=== PATIENT | female | born 1950 | race Hispanic/Latino ===

== ENCOUNTER 2016-06-26 15:24 | Inpatient (IN) | payer MEDICARE, OTHER ==
[2016-06-26 15:51] VITALS: BMI 28.0
[2016-06-26 17:00] LABS: PH,URINE 6.5 (4.7-8.0); URINE BILIRUBIN NEGATIVE (NEGATIVE); URINE BLOOD LARGE (NEGATIVE); URINE GLUCOSE (UA) NEGATIVE (NEGATIVE); URINE KETONE NEGATIVE (NEGATIVE); URINE LEUKOCYTE ESTERASE LARGE Leu/uL (NEGATIVE); URINE PROTEIN 30 mg/dL (<30 mg/dL); URINE UROBILINOGEN 0.2 E.U./dL (<1 E.U./dL)
[2016-06-26 17:04] LABS: ADD MANUAL DIFF? NO
[2016-06-26 17:10] LABS: URINE APPEARANCE SL CLOUDY (CLEAR); URINE COLOR YELLOW (YELLOW)
[2016-06-26 17:13] LABS: BASO # 0.03 K/mm3 (0.0-2.0); BASO % 0.4 % (0.0-3.0); EOS # 0.2 (0.0-0.7); EOS % 2.2 % (1.5-5.0); GRAN # 6.01 (1.4-6.5); GRAN % 81.4 % (50.0-68.0); LYMPH # 0.7 (1.2-3.4); MEAN CELL VOLUME 94.8 fL (80.0-105.0); MEAN CORPUSCULAR HEMOGLOBIN 30.7 pg (25.0-35.0); MEAN CORPUSCULAR HGB CONC 32.4 g/dl (31.0-37.0); MEAN PLATELET VOLUME 9.8 fl (7.0-11.0); MONO # 0.4 (0.1-0.6); PLATELET COUNT 242 10^3/uL (120.0-450.0); RED CELL DISTRIBUTION WIDTH 14.3 % (11.5-14.5); WHITE BLOOD COUNT 7.4 10^3/ul (4.5-11.0)
[2016-06-26] MEDS ORDERED: Morphine 2 mg/ml ISec IVP STA ×2 (17:31→19:36)
[2016-06-26 17:36] LABS: URINE AMORPHOUS SEDIMENT MODERATE; URINE BACTERIA MOD (NEG); URINE RBC 20 - 25 /hpf (0-2); URINE WBC TNTC /hpf (0-6)
[2016-06-26 17:39] LABS: PARTIAL THROMBOPLASTIN TIME 27.1 Seconds (23.7-30.8)
[2016-06-26 17:49] LABS: INR 0.94 (0.93-1.08)
--- NOTE | 2016-06-26 17:50 | ED PDOC ---
Arrival/HPI - General Chief Complaint: Female Genitourinary Time Seen by Provider: 06/26/16 16:07 Historian: Patient - History of Present Illness Narrative History of Present Illness (Text): 06/26/16 17:47 65yo female with PMHx of hypertension, cervical CA and with Nephrostomy present with complaint of suprapubic abdominal pain and hematuria x few weeks. States pain became increasingly worse with hematuria. She reports previous history of UTI. she also reports rectal pain. Denies fever, chills, nausea, vomiting, any other complaint. 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 - Psychiatric Hx Emotional Abuse: No Hx Physical Abuse: No Hx Substance Use: No - Surgical History Hx Cardiac Catheterization: Yes Hx Coronary Stent: Yes Hx Hysterectomy: Yes Other/Comment: nephrostomy tubes,CARDIAC STENTS ,HYSTERECTOMY,RIGHT ANKLE FX, - Anesthesia Hx Anesthesia: No Hx Anesthesia Reactions: No Hx Malignant Hyperthermia: No - Suicidal Assessment Feels Threatened In Home Enviroment: No Family/Social History - Physician Review Nursing Documentation Reviewed: Yes Family/Social History: Unknown Family HX Smoking Status: Former Smoker Hx Alcohol Use: No Hx Substance Use: No Hx Substance Use Treatment: No Allergies/Home Meds Allergies/Adverse Reactions: Allergies No Known Allergies Allergy (Verified 01/23/16 23:00) Home Medications: Home Meds Medication Instructions Recorded Confirmed Oxycodone HCl/Acetaminophen 1 tab PO Q6H PRN 02/12/15 06/26/16 [Percocet 5-325 mg Tablet] Sertraline [Zoloft] 25 mg PO DAILY 04/06/15 06/26/16 Docusate Sodium [Dc' 100 mg PO DAILY PRN 11/08/15 06/26/16 Laxative] Ergocalciferol (Vitamin D2) 50,000 iu PO FRI 11/08/15 06/26/16 [Vitamin D2] Omeprazole 20 mg PO DAILY 11/08/15 06/26/16 Tranexamic Acid [Lysteda] 2 tab PO BID 11/08/15 06/26/16 Review of Systems - Physician Review All systems were reviewed & negative as marked: Yes - Review of Systems Constitutional: Normal Eyes: Normal ENT: Normal Respiratory: Normal Cardiovascular: Normal Gastrointestinal: Abdominal Pain. absent: Constipation, Diarrhea, Nausea, Vomiting, Hematochezia, Hematemesis Genitourinary Female: Dysuria, Frequency, Hematuria Musculoskeletal: Normal Skin: Normal Neurological: Normal Endocrine: Normal Hemo/Lymphatic: Normal Psychiatric: Normal Physical Exam Vital Signs Reviewed: Yes Vital Signs Temp Pulse Resp BP Pulse Ox 06/26/16 19:30 79 16 128/87 98 06/26/16 17:49 82 18 131/77 96 06/26/16 15:50 99.7 F H 87 18 150/88 100 Temperature: Febrile Blood Pressure: Normal Pulse: Regular Respiratory Rate: Normal Appearance: Positive for: Well-Appearing, Non-Toxic, Comfortable Pain Distress: None Mental Status: Positive for: Alert and Oriented X 3 - Systems Exam Head: Present: Atraumatic, Normocephalic Pupils: Present: PERRL Extroacular Muscles: Present: EOMI Conjunctiva: Present: Normal Mouth: Present: Moist Mucous Membranes Neck: Present: Normal Range of Motion Respiratory/Chest: Present: Clear to Auscultation, Good Air Exchange. No: Respiratory Distress, Accessory Muscle Use Cardiovascular: Present: Regular Rate and Rhythm, Normal S1, S2. No: Murmurs Abdomen: Present: Tenderness (Suprapubic tenderness), Normal Bowel Sounds, Other (Nephrostomy tube noted in place. No sign of infection noted. No erythema. No swelling. No tenderness). No: Distention, Peritoneal Signs, Rebound, Guarding, McBurney's Point Tender, Rovsing's Sign Present Back: Present: Normal Inspection Upper Extremity: Present: Normal Inspection. No: Cyanosis, Edema Lower Extremity: Present: Normal Inspection. No: Edema Neurological: Present: GCS=15, CN II-XII Intact, Speech Normal Skin: Present: Warm, Dry, Normal Color. No: Rashes Psychiatric: Present: Alert, Oriented x 3, Normal Insight, Normal Concentration Medical Decision Making ED Course and Treatment: 06/27/16 03:14 PT presented for stated history. She denied fever, but had low grade temp on presentation. Her pain was managed in ED with medication. Lab was noted with increased Cr which was comparable to her previous lab. UTI was noted in the UA. Pt will be admitted for UTI for abx secondary to her age and PMHx. Case was DW Dr. Bolivar. He accepted pt to his service. He requested consult of Drs. Pitts and Pj. Result and plan was DW the pt and she agreed. - Lab Interpretations Lab Results: 06/26/16 16:45 06/26/16 18:20 Lab Results 06/26/16 18:20: Sodium 138, Potassium 5.0, Chloride 104, Carbon Dioxide 24, Anion Gap 15, BUN 39 H, Creatinine 2.0 H, Est GFR ( Amer) 30, Est GFR ( Non-Af Amer) 25, Random Glucose 101, Calcium 8.8, Total Bilirubin 0.4, AST 32, ALT 12, Alkaline Phosphatase 127, Total Protein 7.1, Albumin 3.6, Globulin 3.4, Albumin/Globulin Ratio 1.1 06/26/16 16:45: WBC 7.4, RBC 3.48 L, Hgb 10.7 L, Hct 33.0 L, MCV 94.8, MCH 30.7 , MCHC 32.4, RDW 14.3, Plt Count 242, MPV 9.8, Gran % 81.4 H, Lymph % (Auto) 10.0 L, [place] % (Auto) 6.0, Eos % (Auto) 2.2, Baso % (Auto) 0.4, Gran # 6.01, Lymph # 0.7 L, Grimes # 0.4, Eos # 0.2, Baso # 0.03, PT 10.2, INR 0.94, APTT 27.1 06/26/16 16:44: Urine Color Yellow, Urine Appearance Sl cloudy, Urine pH 6.5, Ur Specific [place] 1.015, Urine Protein 30 H, Urine Glucose (UA) Negative, Urine Ketones Negative, Urine Blood Large H, Urine Nitrate Negative, Urine Bilirubin Negative, Urine Urobilinogen 0.2, Ur Leukocyte Esterase Large H, Urine RBC 20 - 25, Urine WBC Tntc, Ur Epithelial Cells 3 - 4, Amorphous Sediment Moderate, Urine Bacteria Mod - Medication Orders Current Medication Orders: Piperacillin Sod/Tazobactam Sod (Zosyn 2.25 Gm In 0.9% 100 Ml) 100 mls @ 200 mls/hr IVPB Q8 SHELBY PRN Reason: Protocol Stop: 07/04/16 06:01 Morphine Sulfate (Morphine) 2 mg IVP Q4H PRN PRN Reason: Pain, moderate (4-7) Stop: 06/27/16 08:34 Last Admin: 06/27/16 00:49 Dose: 2 MG [facility] Pain Assessment Document 06/27/16 00:49 RR (Rec: 06/27/16 00:49 RR [id number]) Pain Reassessment Is this a pain reassessment? No Sleep Is patient sleeping during reassessment? No Presence of Pain Presence of Pain Yes Pain Scale Used Pain Scale Used Numeric Location Upper or Lower Lower Pain Location Body Site Abdomen Description Description Constant Intensity of Pain at present 6 Pain Behavior Guarding Withdrawal from Touch Alleviating Factors/Management Medication Techniques Alleviating Factors Medication IVP Administration Document 06/27/16 00:49 RR (Rec: 06/27/16 00:49 RR [id number]) Charges for Administration # of IVP Administrations 1 Re-Assess: [facility] Pain Assessment Document 06/27/16 01:49 RR (Rec: 06/27/16 02:04 RR [id number]) Pain Reassessment Is this a pain reassessment? Yes Sleep Is patient sleeping during reassessment? Yes Pain Scale Used Pain Scale Used FLACC Discontinued Medications Hydrocortisone (Anusol-Hc) 15 gm IN ONCE STA Stop: 06/26/16 22:17 Last Admin: 06/26/16 23:44 Dose: 1 UNIT Ceftriaxone Sodium (Rocephin 1 Gram Ivpb) 100 mls @ 200 mls/hr IVPB STAT STA PRN Reason: Protocol Stop: 06/26/16 20:43 Last Admin: 06/26/16 21:46 Dose: 200 MLS/HR eMAR Start Stop Document 06/26/16 21:46 YP (Rec: 06/26/16 21:46 YP [id number]) Intravenous Solution Start Date 06/26/16 Start Time 21:46 End Date 06/26/16 End time 22:16 Total Infusion Time 30 Morphine Sulfate (Morphine) 2 mg IVP STAT STA Stop: 06/26/16 17:32 Last Admin: 06/26/16 17:52 Dose: 2 MG MAR Pain Assessment Document 06/26/16 17:52 SZA (Rec: 06/26/16 17:52 SZA [id number]) Pain Reassessment Is this a pain reassessment? No Sleep Is patient sleeping during reassessment? No Presence of Pain Presence of Pain Yes IVP Administration Document 06/26/16 17:52 SZA (Rec: 06/26/16 17:52 SZA [id number]) Charges for Administration # of IVP Administrations 1 Morphine Sulfate (Morphine) 2 mg IVP STAT STA Stop: 06/26/16 19:37 Last Admin: 06/26/16 20:16 Dose: 2 MG MAR Pain Assessment Document 06/26/16 20:16 YP (Rec: 06/26/16 20:16 YP [id number]) Pain Reassessment Is this a pain reassessment? Yes Sleep Is patient sleeping during reassessment? No Presence of Pain Presence of Pain Yes Pain Scale Used Pain Scale Used Numeric IVP Administration Document 06/26/16 20:16 YP (Rec: 06/26/16 20:16 YP [id number]) Charges for Administration # of IVP Administrations 1 Disposition/Present on Arrival - Present on Arrival Any Indicators Present on Arrival: No History of DVT/PE: No History of Uncontrolled Diabetes: No Urinary Catheter: No History of Decub. Ulcer: No History Surgical Site Infection Following: None - Disposition Have Diagnosis and Disposition been Completed?: Yes Diagnosis: UTI (urinary tract infection), Renal failure, chronic Disposition: HOSPITALIZED Disposition Time: 20:20 Patient Problems: Current Active Problems Problem Status Diagnosed Anemia Acute UTI (urinary tract infection) Acute Coronary artery disease Chronic Renal failure, chronic Chronic Condition: FAIR
[2016-06-26 18:51] LABS: ALB/GLOB RATIO 1.1 (1.1-1.8); BILIRUBIN,TOTAL 0.4 mg/dL (0.2-1.3); CALCIUM 8.8 mg/dL (8.4-10.5); TOTAL PROTEIN 7.1 g/dL (5.8-8.3)
[2016-06-26] MEDS ORDERED: cefTRIAXone 1 gm 100 ML IVPB STA (20:14)
[2016-06-26] MEDS ORDERED: Hydrocortisone 2.5% Rectal Cream(30 gm) PR STA (22:16)
[2016-06-26 23:38] VITALS: RESP 20
--- NOTE | 2016-06-27 00:18 | CP.PCM.PN ---
Subjective - Date & Time of Evaluation Date of Evaluation: 06/27/16 Time of Evaluation: 00:15 - Subjective Subjective: Patient was seen at bedside because she complained of bladder pain,pain was in the suprapubic area, sharp pain, no radiation. Morphine 2 mg was given 8:16 PM in the ER .also at about 6PM. T 99.6*F This 65 year old white woman was admitted with suprapubic abdominal pain and hematuria of few weeks duration. Has PMH of HTN, CAD,ASHD, CHF, TIA/CVA, Cervical cancer, S/P chemo therapy, S/ P radiation therapy, CKD , bilateral nephrostomy tube, anxiety , depression, Objective - Vital Signs/Intake and Output Vital Signs (last 24 hours): Temp Pulse Resp BP Pulse Ox 99.9 F H 87 20 150/83 98 06/26/16 22:40 06/26/16 22:40 06/26/16 22:40 06/26/16 22:40 06/26/16 19:30 - Medications Medications: Active Medications Piperacillin Sod/Tazobactam Sod (Zosyn 2.25 Gm In 0.9% 100 Ml) 100 mls @ 200 mls/hr IVPB Q8 SHELBY PRN Reason: Protocol Stop: 07/04/16 06:01 Morphine Sulfate (Morphine) 2 mg IVP Q4H PRN PRN Reason: Pain, moderate (4-7) Stop: 06/27/16 08:34 Last Admin: 06/27/16 00:49 Dose: 2 mg - Labs Labs: PT 10.2 Seconds (9.9-11.8) 06/26/16 16:45 INR 0.94 (0.93-1.08) 06/26/16 16:45 APTT 27.1 Seconds (23.7-30.8) 06/26/16 16:45 - Constitutional Appears: Well, No Acute Distress - Head Exam Head Exam: ATRAUMATIC, NORMAL INSPECTION, NORMOCEPHALIC - Eye Exam Eye Exam: Normal appearance - ENT Exam ENT Exam: Normal External Ear Exam - Neck Exam Neck Exam: Normal Inspection - Respiratory Exam Respiratory Exam: NORMAL BREATHING PATTERN - Cardiovascular Exam Cardiovascular Exam: absent: JVD - GI/Abdominal Exam GI & Abdominal Exam: absent: Distended, Tenderness - Rectal Exam Rectal Exam: Deferred - Exam Additional comments: Bilateral flanks have nephrostomy tubes, bags have clear urine. - Extremities Exam Extremities Exam: Normal Inspection - Back Exam Back Exam: NORMAL INSPECTION - Neurological Exam Neurological Exam: Alert, Oriented x3 - Psychiatric Exam Psychiatric exam: Normal Affect, Normal Mood - Skin Skin Exam: Normal Color Assessment and Plan - Assessment and Plan (Free Text) Assessment: A/P: Suprapubic pain. Cervical cancer. HTN. S/P bilateral nephrostomy tubes. Morphine sulfate 2 mg IV Q4H PRN x 3 doses.
[2016-06-27] MEDS: Morphine 2 mg/ml ISec IVP PRN ×4 (00:49→21:10)
[2016-06-27] MEDS: Piperacillin/Tazobact 2.25gm 100 ML IVPB SCH ×3 (06:37→21:08)
[2016-06-27] MEDS ORDERED: Oxycodone/Acetaminophen 10/325 mg Tab PO PRN (09:04)
[2016-06-27] MEDS: TRANEXAMIC ACID 650 MG PO SCH ×2 (09:58→17:30)
--- NOTE | 2016-06-27 13:20 | CON ---
DATE: 06/27/2016 SERVICE: Cardiology. REASON FOR CONSULTATION: Cardiac evaluation, history of coronary artery disease, admitted with a bleed, history of cervical cancer, status post bilateral nephrostomy. BRIEF CLINICAL HISTORY: This is a 65-year-old female with past medical history significant for coron yunier artery disease, status post bare metal stent placed in the past, history of cervical cancer, erod ed to the bladder, status post bilateral nephrostomy, admitted with a bleed. Denies any chest hermelinda n, shortness of breath, any palpitation. Recently a stress test was done which was abnormal and sche duled for cardiac catheterization. The patient herself and the family and [id number], who is a r etired anesthesiologist, wanted to hold the procedure and the sister also wanted to hold the procedur e. The patient denies any chest pain, shortness of breath, any palpitation, though complained of b leed with a blood clot. PAST MEDICAL HISTORY: Significant for cervical cancer with fistulous communication into the bladder, status post bilateral nephrostomy, history of stent in the coronary with a bare metal stent in the p ast, hypertension, hyperlipidemia, history of renal insufficiency, history of anemia, history of, as mentioned, bilateral nephrostomy. 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 The patient gonzalez d a stress test recently that was abnormal, so patient is scheduled for cardiac catheterization, but as mentioned, family and patient refused. Last echo, ejection fraction 55%-60% in the [facility] al, trace aortic regurgitation, mild mitral regurgitation, moderate to severe mitral regurgitation, m ild tricuspid regurgitation, RV systolic pressure of 33. The patient was scheduled for cardiac chandu terization 04/12/2016, but the family refused. The patient had a stress test on 05/15/2016 that was abno rmal. Most recent stress test 05/15/2016 that was equivocal myocardial study, partially reversib le anterior defect suspicious for ischemia dated 05/15/2016. Following this, patient was scheduled for a cardiac catheterization. The patient canceled and refused. Denies any chest pain. CURRENT MEDICATIONS: The patient is taking at home, vitamin B12, folic acid. PHYSICAL EXAMINATION: VITAL SIGNS: Temperature afebrile, heart rate 86, blood pressure 130/80. HEENT: PERRLA. Extraocular muscles intact. NECK: Supple. No carotid bruits. No thyromegaly. CHEST: Clear to auscultation. HEART: S1, S2 regular. ABDOMEN: Soft. EXTREMITIES: Clubbing, cyanosis negative. EKG showed normal sinus. Blood workup, computer system is locked, cannot review the blood report now . IMPRESSION: Renal insufficiency, anemia, genitourinary bleed, coronary artery disease, status post a bare metal stent in circumflex, a stress test on 05/15/2016 abnormal, cardiac catheterization is sugge sted. The patient refused. Mitral regurgitation, tricuspid regurgitation. LABORATORY DATA: WBC 7.4, hemoglobin 10.7, hematocrit 33.0, platelet count 242. Chemistry shows sod ium 138, potassium 5, chloride 104, carbon dioxide 24, anion gap of 15, BUN 39, creatinine 2 with a c reatinine clearance of 30 mL. RECOMMENDATION: We will continue to monitor closely anemia. We will hold the cardiac catheterizatio n. The patient does not want. The patient is asymptomatic and the patient's family also wanted to h old off the cardiac catheterization. We will follow with you. Thank you, Dr. Ford, for providing us the opportunity in taking care of this patient. We will rev iew the most recent echo done in Dr. Peña's office. Will follow with you. Debby Oliva MD cc: [id number] TT: 06/27/2016 13:19:22 Confirmation # [id number] Dictation # [id number] yaniv
--- NOTE | 2016-06-27 14:29 | CP.PCM.CON ---
History of Present Illness - History of Present Illness History of Present Illness: 65 year old female with PMH of enterococcus and pseudomonas UTI in the past, cervical cancer S/P chemotherapy and radiation therapy with history or radiation cystitis, history of transient ischemic attack, GERD, coronary artery disease, sleep apnea, history of psoriasis, history of diverticulitis, history of depression, chronic renal failure, S/P nephrostomy tube placement came in to [facility] because of suprapubic pain and intermittent hematuria for the past 2 weeks, with worsening in the past 2-3 days. The patient denies fever or chills, no nausea or vomiting, no diarrhea, no headache or dizziness, no chest pain, no sore throat, no rhinorrhea, no abdominal pain, no flank pain. Infectious Diseases consult is requested to further evaluate and manage. Social history: no smoking, no alcohol abuse, no illicit drug use Review of Systems - Review of Systems All systems: reviewed and no additional remarkable complaints except (as per HPI ) Past Patient History - Infectious Disease Hx of Infectious Diseases: None - Tetanus Immunizations Tetanus Immunization: Unknown - Past Medical History & Family History Past Medical History?: Yes Past Family History: Reviewed and not pertinent - Past Social History Smoking Status: Never Smoked Alcohol: None Drugs: Denies - CARDIAC Hx Pacemaker: No - PULMONARY Hx Respiratory Disorders: Yes Hx Asthma: Yes Hx Sleep Apnea: Yes - NEUROLOGICAL Hx Transient Ischemic Attacks (TIA): Yes (20yrs ago) - HEENT Other/Comment: left tympanic tubes placed - RENAL Hx Renal Failure: Yes Other/Comment: Nephrostomy tubes bilateral, 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 - PSYCHIATRIC Hx Emotional Abuse: No Hx Physical Abuse: No - SURGICAL HISTORY Hx Cardiac Catheterization: Yes Hx Coronary Stent: Yes Hx Hysterectomy: Yes Other/Comment: nephrostomy tubes,CARDIAC STENTS ,HYSTERECTOMY,RIGHT ANKLE FX, - ANESTHESIA Hx Anesthesia: No Hx Anesthesia Reactions: No Hx Malignant Hyperthermia: No Meds Allergies/Adverse Reactions: Allergies Allergy/AdvReac Type Severity Reaction Status Date / Time No Known Allergies Allergy Verified 01/23/16 23:00 - Medications Medications: Current Medications Piperacillin Sod/Tazobactam Sod (Zosyn 3.375 In Ns 100ml) 100 mls @ 200 mls/hr IVPB Q8 SHELBY PRN Reason: Protocol Stop: 07/04/16 06:01 Physical Exam - Constitutional Appears: Non-toxic, No Acute Distress - Head Exam Head Exam: NORMAL INSPECTION - ENT Exam ENT Exam: Mucous Membranes Moist - Neck Exam Neck exam: Negative for: Lymphadenopathy, Meningismus - Respiratory Exam Respiratory Exam: Decreased Breath Sounds - Cardiovascular Exam Cardiovascular Exam: +S1, +S2 - GI/Abdominal Exam GI & Abdominal Exam: Soft. absent: Tenderness Results - Vital Signs Recent Vital Signs: Last Vital Signs Temp 99.9 F H 06/26/16 22:40 Pulse 87 06/26/16 22:40 Resp 20 06/26/16 22:40 BP 150/83 06/26/16 22:40 Pulse Ox 98 06/26/16 19:30 - Labs Result Diagrams: 06/26/16 16:45 06/26/16 18:20 Assessment & Plan - Assessment and Plan (Free Text) Plan: Assessment Urinary tract infection with gram negative bacilli; based on previous cultures, the patient has had pseudomonas, Klebsiella and Enterococcus faecalis enterococcus and pseudomonas UTI in the past cervical cancer S/P chemotherapy and radiation therapy with history or radiation cystitis history of transient ischemic attack GERD coronary artery disease sleep apnea history of psoriasis history of diverticulitis history of depression chronic renal failure S/P nephrostomy tube placement Plan started patient on Zosyn pending identification and sensitivities of the gram negative bacilli in the urine; follow up blood cx; will order renal ultrasound to rule out hydronephrosis will follow clinically
--- NOTE | 2016-06-27 15:40 | CON ---
DATE: 06/27/2016 ADDENDUM REASON FOR DICTATION: Addendum to the initial consult dictated this morning. REASON FOR ADDENDUM: The patient had echocardiography 05/09/2016 that showed mild LVH, preserved LV f unction, ejection fraction 70%, diastolic dysfunction. Moderate to severe mitral regurgitation, mild tricuspid regurgitation, trace pulmonary insufficiency, RV systolic pressure of 43. The patient has also bilateral carotid duplex done that shows bilateral moderate plaque noted in both ICA and CCA with stenosis and right ICA 40-59% left ICA 20-39% stenosis. As also mentioned, the pat ient had a stress test on 05/15/2016 that is suspicious for ischemia. The patient refused cardiac cath eterization and opted for medical treatment for now. Today, also patient wanted to be treated medica lly. Denies any chest pain. RECOMMENDATION: We will continue low-dose beta theodore. Not on aspirin because of the bleed. Co ntinue the rest of the medication. We will follow with you. Thank you, Dr. Ford, for providing us the opportunity in taking care of the patient. We will foll ow with you. Debby Oliva MD cc: [id number] TT: 06/27/2016 15:25:35 Confirmation # [id number] Dictation # [id number] tn
--- NOTE | 2016-06-27 18:54 | US ---
PROCEDURE: Ultrasound of the Kidneys HISTORY: rule out hydronephrosis COMPARISON: None available. TECHNIQUE: Sonogram of the kidneys. FINDINGS: RIGHT KIDNEY: Measures: 7.1 cm. Small in size. There is diffuse cortical increased echogenicity and loss of corticomedullary differentiation. No stone, solid mass lesion or hydronephrosis visualized. Nephrostomy tube is visualized. LEFT KIDNEY: Measures: 8.1 cm. Small in size. There is diffuse increased cortical echogenicity and loss of corticomedullary differentiation. No stone, solid mass lesion or hydronephrosis visualized. Nephrostomy tube is visualized. OTHER FINDINGS: None. IMPRESSION: Findings are consistent with severe chronic medical renal disease. No hydronephrosis.
--- NOTE | 2016-06-28 01:01 | HP ---
The patient was admitted through the Emergency Room last night. The patient is currently in room 378 . REASON FOR ADMISSION: This is a 65-year-old female with a past medical history of stage III carcino ma of the cervix, status post chemoradiation with resultant delayed side effects from radiation-induc ed cystitis for which she underwent eventually bilateral nephrostomy, radiation proctitis for which s he had to have the laser therapy and ablation of ectatic blood vessels in the rectum. HISTORY OF PRESENT ILLNESS: History of coronary artery disease, status post bare metal stent placeme nt in the past, history of significant radiation cystitis of the bladder requiring multiple procedur es including embolization of the arteries supplying the bladder in the recent past. The patient was assessed for surgical pelvic exenteration but was not feasible because of unstable cardiac disease. The patient had a recent stress test done, which was abnormal and the patient was scheduled for cardi ac catheterization. The patient in the meantime presents to the Emergency Room with significant comp laints of abdominal pain, bilateral nephrostomy discharge of blood-tinged fluid and waves of nausea. The patient wanted to hold off on the cardiac catheterization for now since she was relatively other britt feeling asymptomatic. The patient denied any history of chest pain, shortness of breath, palpit ations, though currently her biggest complaint for which brought her into the hospital, is bleeding t hrough the nephrostomy tubes, blood clotting and more importantly lower abdominal pain. PAST MEDICAL HISTORY: As mentioned is significant for stage IIIB/IV cervical carcinoma with radiatio n proctitis and radiation cystitis for which she had bilateral nephrostomy. The patient had bare met al stents in the coronary arteries with multiple stents placed, history of hypertension, history of h yperlipidemia, history of old cerebrovascular accident, history of renal insufficiency. The patient is on tranexamic acid for anemia and she is being monitored with periodic exchanges of th e nephrostomy catheter done by Dr. Bruce Black. CURRENT MEDICATIONS: At home including taking PPI such as omeprazole. She is on Zoloft 25 mg p.o. d aily. She is on folic acid. She has tranexamic acid 600 mg b.i.d. to reduce the risk of bleeding. She is on Percocet 10/325 q. 6 hours p.r.n. for pain, she is on MiraLax for constipation. PHYSICAL EXAMINATION: GENERAL: The patient is awake, alert, and oriented. VITAL SIGNS: Stable. T-max is 98.4, heart rate is 86, blood pressure is 130/80. HEENT: Head is normocephalic, atraumatic. Conjunctivae pale. Pupils are equally reactive to light and accommodation. Examination of the oropharynx reveals no oropharyngeal lesions. NECK: Supple. There is no adenopathy. LUNGS: Reveals it to be clear to percussion and auscultation. HEART: Reveals PMI to be in the 5th intercostal space inside the midclavicular line. S1 and S2 are normal. No gallop or murmur is heard. ABDOMEN: Soft. The patient has mild suprapubic tenderness. No masses per se are felt. EXTREMITIES: Reveals no cyanosis, clubbing or edema. The patient has bilateral nephrostomies with d rainage is blood tinged. LABORATORY DATA: EKG shows normal sinus rhythm at this time. Lab data reveals a white count of 7.4, hemoglobin 10.7, hematocrit 33, platelet count of 242,000. Sodium is 138, K is 5, chloride 104, CO2 of 24, BUN of 39, creatinine 2 with a creatinine clearance of 30. ASSESSMENT NOTES AND PLAN: The patient has renal insufficiency, probably prerenal azotemia as well, anemia, genitourinary bleed, coronary artery disease status post bare metal stent placement, abnorma l stress test, now in the setting of significant bleeding will have rule out evolving genitourinary i nfection as well. PLAN: The patient has already been started appropriately on IV antibiotics and IV fluids, monitor th e patient very carefully. Consultations with both ID and vascular have been obtained, we will get a evaluation as well. The patient to be seen by Dr. Aburto who has seen her in the past. The hill ent's family and the patient are reluctant for any further cardiac workup. Will speak to the family myself and recommend to them appropriately. ID has already seen the patient and the patient is alrea dy on appropriate antibiotics from the Emergency Room. Her medications were reviewed and she is currently on the following medicines: She is on tranexamic acid 600 mg twice a day, Lopressor 25 b.i.d., 2 mg IV q. 4 hours p.r.n. of morphine sulfate for pain, oxycodone 10/325 one q. 6 h. for mild pain. She is on Zosyn q. 8 hours. Repeat blood work has been ordered. Will make sure the BUN and creatinine is getting better, otherwise, we will get renal on b oard as well. ADMITTING DIAGNOSES: Genitourinary bleeding from bilateral nephrostomies, mild renal azotemia in the background history of having metastatic locally advanced cervical cancer status post chemoradiation, status post treatment for radiation cystitis, status post treatment for radiation proctitis on trane xamic acid to reduce the risk of bleeding with having the nephrostomy catheter exchange every 2-3 mon [address] done by Dr. Bruce Black. Gudelia Ford MD cc: [id number] TT: 06/28/2016 01:00:25 jn
[2016-06-28] MEDS: Morphine 2 mg/ml ISec IVP PRN ×3 (05:26→14:48)
[2016-06-28] MEDS: Piperacillin/Tazobact 2.25gm 100 ML IVPB SCH ×2 (05:27→14:50)
[2016-06-28 07:41] LABS: ADD MANUAL DIFF? NO
[2016-06-28 07:51] LABS: BASO # 0.03 K/mm3 (0.0-2.0); BASO % 0.5 % (0.0-3.0); EOS # 0.3 (0.0-0.7); EOS % 5.1 % (1.5-5.0); GRAN # 4.05 (1.4-6.5); GRAN % 71.4 % (50.0-68.0); LYMPH # 0.8 (1.2-3.4); LYMPH % 14.4 % (22.0-35.0); MEAN CELL VOLUME 95.5 fL (80.0-105.0); MEAN CORPUSCULAR HEMOGLOBIN 30.4 pg (25.0-35.0); MEAN CORPUSCULAR HGB CONC 31.9 g/dl (31.0-37.0); MEAN PLATELET VOLUME 9.3 fl (7.0-11.0); MONO # 0.5 (0.1-0.6); MONO % 8.6 % (1.0-6.0); PLATELET COUNT 202 10^3/uL (120.0-450.0); RED CELL DISTRIBUTION WIDTH 14.1 % (11.5-14.5); WHITE BLOOD COUNT 5.7 10^3/ul (4.5-11.0)
[2016-06-28 08:09] LABS: BILIRUBIN,TOTAL 0.6 mg/dL (0.2-1.3); CALCIUM 8.8 mg/dL (8.4-10.5); MAGNESIUM 2.2 mg/dL (1.7-2.2); PHOSPHOROUS 3.9 mg/dL (2.5-4.5); POTASSIUM 4.4 mmol/L (3.6-5.0); TOTAL PROTEIN 6.9 g/dL (5.8-8.3)
[2016-06-28 08:39] VITALS: BP 127/75; PULSE 68; TEMP 98.6; O2SAT 98
[2016-06-28] MEDS: TRANEXAMIC ACID 650 MG PO SCH (10:13)
--- NOTE | 2016-06-28 10:46 | CP.PCM.PN ---
Subjective - Date & Time of Evaluation Date of Evaluation: 06/28/16 Time of Evaluation: 07:30 - Subjective Subjective: Comfortable in bed, no abdominal pain, no fevers, no nausea. Objective - Vital Signs/Intake and Output Vital Signs (last 24 hours): Temp Pulse Resp BP Pulse Ox 98.6 F 68 20 127/75 98 06/28/16 08:38 06/28/16 10:12 06/28/16 08:38 06/28/16 10:12 06/28/16 08:38 Intake and Output: 06/28/16 06/28/16 06:59 18:59 Intake Total 600 400 Balance 600 400 - Medications Medications: Current Medications Home Med (Home Med) 2 unit PO BID [facility] Last Admin: 06/28/16 10:13 Dose: 2 unit Piperacillin Sod/Tazobactam Sod (Zosyn 2.25 Gm In 0.9% 100 Ml) 100 mls @ 200 mls/hr IVPB Q8 [place] PRN Reason: Protocol Stop: 07/04/16 06:01 Last Admin: 06/28/16 05:27 Dose: 200 mls/hr Metoprolol Tartrate (Lopressor) 25 mg PO BID [facility] Last Admin: 06/28/16 10:12 Dose: 25 mg Morphine Sulfate (Morphine) 2 mg IVP Q4H PRN PRN Reason: Pain, severe (8-10) Last Admin: 06/28/16 05:26 Dose: 2 mg Oxycodone/Acetaminophen (Percocet 10/325 Mg Tab) 1 tab PO Q6H PRN PRN Reason: Pain, moderate (4-7) - Labs Labs: 06/28/16 07:15 06/28/16 07:00 PT 10.2 Seconds (9.9-11.8) 06/26/16 16:45 INR 0.94 (0.93-1.08) 06/26/16 16:45 APTT 27.1 Seconds (23.7-30.8) 06/26/16 16:45 - Constitutional Appears: Non-toxic, No Acute Distress - Head Exam Head Exam: NORMAL INSPECTION - Neck Exam Neck Exam: absent: Lymphadenopathy, Meningismus - Respiratory Exam Respiratory Exam: Decreased Breath Sounds - Cardiovascular Exam Cardiovascular Exam: +S1, +S2 - GI/Abdominal Exam GI & Abdominal Exam: Soft. absent: Tenderness Assessment and Plan - Assessment and Plan (Free Text) Plan: Assessment Urinary tract infection with Klebsiella oxytoca history of pseudomonas, Klebsiella and Enterococcus faecalis UTI enterococcus and pseudomonas UTI in the past cervical cancer S/P chemotherapy and radiation therapy with history or radiation cystitis history of transient ischemic attack GERD coronary artery disease sleep apnea history of psoriasis history of diverticulitis history of depression chronic renal failure S/P nephrostomy tube placement Plan on Zosyn (day 2); renal ultrasound did not show hydronephrosis; when ready for discharge, the patient can be switched to PO Bactrim 1 tab DS x 10 days (since she has complication of radiation-induced cystitis previously and has a right sided nephrostomy
--- NOTE | 2016-06-28 14:23 | PN ---
DATE: 06/28/2016 The patient in room 378, bed 1. REASON FOR CONSULTATION AND FOLLOWUP: History of coronary artery disease, admitted with bleeding, history of cervical cancer, status post bilateral nephrostomy. HISTORY OF PRESENT ILLNESS: The patient is a 65-year-old female with past medical history significan t for coronary artery disease, status post bare metal stent placement in the past, history of cervica l cancer to the bladder, status post bilateral nephrostomy. Now admitted with bleed. Denie s chest pain, shortness of breath, or palpitation. The patient had a stress test 05/15/2016, which sh owed ischemia. The patient refused cardiac catheterization. Carotid ultrasound showed right-sided 4 0%-59% blockage, left side 20%-39% blockage. Echo on 05/09/2016 showed mild LVH with ejection fractio n of 70%, diastolic dysfunction, moderate to severe mitral regurgitation, mild tricuspid regurgitatio n, RVSP 43 mmHg, suggestive of mild pulmonary hypertension. The patient, from cardiac point of view, asymptomatic at this moment. PHYSICAL EXAMINATION: VITAL SIGNS: Blood pressure 127/75, respirations 20, pulse 68, temperature 98.6. HEAD: Normocephalic. EYES: Pupils normal. Conjunctivae slightly pale. NECK: JVP low. Carotid equal. THORAX: AP diameter normal. LUNGS: Clear. CARDIOVASCULAR: S1, S2. ABDOMEN: Soft. Bowel sounds normal. EXTREMITIES: No clubbing, no cyanosis. LABORATORY DATA: WBC 5.7, hemoglobin 10.2, hematocrit 32.0, platelets 202. Sodium 141, potassium 4. 4, BUN 32, creatinine 1.9. Calcium, phosphorus, magnesium normal. AST 56, ALT 25. TSH 0.90. DIAGNOSES: Renal insufficiency, anemia, genitourinary bleeding, coronary artery disease, status post bare metal stent in circumflex, abnormal stress test 05/15/2016. The patient refused cardiac cathete rization. Moderate to severe mitral regurgitation, mild tricuspid regurgitation, left ventricular di astolic dysfunction, normal left ventricular ejection fraction of 70% on echo, history of cervical ca ncer, bilateral nephrostomy. PLAN: Continue metoprolol 25 b.i.d. The patient on piperacillin/tazobactam 2.25 gram IV q. I hours. From cardiac point of view, patient is asymptomatic at present. We will continue present therapy. We will follow with you. Debby Peña MD cc: [phone] TT: 06/28/2016 14:22:52 Confirmation # [id number] Dictation # [id number]
== END 2016-06-28 16:08 | disposition home or self-care (01) | DRG 690 ==
LOC: ED 15:24 → ERH 20:19 → 3RSO 22:25
PROVIDERS: ADMIT Family Medicine; ATTEND Family Medicine
DX: N39.0 Urinary tract infection, site not specified (principal); I13.0 Hypertensive heart and chronic kidney disease with heart failure and stage 1 through stage 4 chronic kidney disease, or unspecified chronic kidney disease; I50.30 Unspecified diastolic (congestive) heart failure; N02.9 Recurrent and persistent hematuria with unspecified morphologic changes; N18.9 Chronic kidney disease, unspecified; C53.9 Malignant neoplasm of cervix uteri, unspecified; I27.2 Other secondary pulmonary hypertension; B96.1 Klebsiella pneumoniae [K. pneumoniae] as the cause of diseases classified elsewhere; F32.9 Major depressive disorder, single episode, unspecified; I08.1 Rheumatic disorders of both mitral and tricuspid valves; I25.10 Atherosclerotic heart disease of native coronary artery without angina pectoris; K21.9 Gastro-esophageal reflux disease without esophagitis; D64.9 Anemia, unspecified; E78.5 Hyperlipidemia, unspecified; G47.30 Sleep apnea, unspecified; L40.9 Psoriasis, unspecified; Z93.6 Other artificial openings of urinary tract status; Z92.21 Personal history of antineoplastic chemotherapy; Z92.3 Personal history of irradiation; Z86.73 Personal history of transient ischemic attack (TIA), and cerebral infarction without residual deficits; Z95.5 Presence of coronary angioplasty implant and graft

== ENCOUNTER 2016-08-15 07:27 | Day surgery (SDC) | payer MEDICARE ==
[2016-07-13 07:24] VITALS: BMI 27.6
--- NOTE | 2016-08-15 08:12 | CP.SDSHP ---
Same Day Surgery H & P - History Proposed Procedure: periodic change of nephrostomy tube. Pre-Op Diagnosis: ureteral obstruction secondry to radiation. - Previous Medical/Surgical History Cardiac: ASHD/CAD, Hx of CHF Endocrine/Metabolic: Renal Disease Neuro: TIA/CVA Pain: 0. No Pain - Allergies Allergies: Allergies No Known Allergies Allergy (Verified 01/23/16 23:00) - Physical Exam General Appearance: WNL. Mental Status: Alert & Oriented x3 Neuro: WNL Heart: WNL Lungs: WNL GI: WNL - {Optional Preform as Required} Other Pertinent Findings: hx of gerd, sleep apnea, cervical cancer. - Impression Impression: uretral obstrion/ with nephostomy tube in place . - Date & Time Date: 08/15/16 Time: 08:10 Short Stay Discharge - Short Stay Discharge Admitting Diagnosis/Reason for Visit: C53.9 CERVICAL CANCER Disposition: HOME/ ROUTINE Referrals: Gudelia Ford MD [Primary Care Provider] -
[2016-08-15] MEDS ORDERED: Lidocaine 2% Inj (20ml) ONE (08:34)
[2016-08-15] MEDS ORDERED: Iodixanol 320 mg/ml 150 ml Bottle IV ONE (08:34)
[2016-08-15 08:37] LABS: ADD MANUAL DIFF? NO
[2016-08-15 08:39] LABS: BASO # 0.02 [, K/mm3] (0.0-2.0); BASO % 0.5 % (0.0-3.0); EOS # 0.2 (0.0-0.7); EOS % 3.8 % (1.5-5.0); GRAN # 2.71 (1.4-6.5); GRAN % 69.1 % (50.0-68.0); LYMPH # 0.7 (1.2-3.4); LYMPH % 17.9 % (22.0-35.0); MEAN CORPUSCULAR HEMOGLOBIN 30.8 pg (25.0-35.0); MEAN CORPUSCULAR HGB CONC 32.1 g/dl (31.0-37.0); MEAN PLATELET VOLUME 9.2 fl (7.0-11.0); MONO # 0.3 (0.1-0.6); MONO % 8.7 % (1.0-6.0); PLATELET COUNT 183 [, 10^3/uL] (120.0-450.0); RED CELL DISTRIBUTION WIDTH 14.7 % (11.5-14.5); WHITE BLOOD COUNT 3.9 [, 10^3/ul] (4.5-11.0)
[2016-08-15 08:48] LABS: INR 1.05 (0.93-1.08); PARTIAL THROMBOPLASTIN TIME 28.3 Seconds (23.7-30.8)
[2016-08-15 09:01] LABS: CALCIUM 6.3 mg/dL (8.4-10.5)
[2016-08-15 09:04] LABS: POTASSIUM 2.9 mmol/L (3.6-5.0)
[2016-08-15] MEDS ORDERED: Potassium Chloride 20 mEq ER Tab PO ONE (09:26)
[2016-08-15] MEDS ORDERED: Midazolam 2 MG/2 ML VIAL ONE (09:35)
[2016-08-15] MEDS ORDERED: Oxycodone/Acetaminophen 5/325 mg Tab PO PRN (10:10)
[2016-08-15] MEDS ORDERED: Sodium Chloride 0.45% 1,000 ML IV SCH (10:15)
[2016-08-15] MEDS ORDERED: Oxycodone/Acetaminophen 5/325 mg Tab ONE (10:34)
[2016-08-15 11:06] VITALS: RESP 18; TEMP 97.8; O2SAT 99
[2016-08-15 12:29] VITALS: BP 132/85; PULSE 85
--- NOTE | 2016-08-15 19:29 | VASCULAR ---
PROCEDURE: 1. Bilateral percutaneous nephrostomy tube change HISTORY: Cervical CA. Previous radiation. Hemorrhagic cystitis. Chronic bilateral nephrostomy tubes. Nephrostomy tubes need to be changed. PHYSICIAN(S): Bruce Black MD. TECHNIQUE: The relative risks and indications of the procedure were explained the patient consent obtained. The patient is placed prone on the arteriography table and nephrostomy tubes prepped and draped usual sterile fashion. Conscious sedation and monitoring were provided throughout the procedure by a nurse. The right nephrostomy tube was addressed 1st. Contrast was injected and a right nephrostogram performed. This revealed obstruction of the distal right ureter. 0.035 guidewire was coiled within the or right pelvis. The old tube was removed. A new 12 [place] right nephrostomy tube was coiled in the renal pelvis. The catheter was flushed and secured. Next the left nephrostomy tube was addressed. Once again contrast was injected via the left nephrostomy tube and a nephrostogram performed. This revealed a patent and normal appearing left ureter. Contrast flows into a contracted bladder. 0.035 guidewire was coiled in the left renal pelvis. The old tube was removed. A new 12 [place] left nephrostomy tube was placed. The catheter was flushed and secured. The patient tolerated the procedure well. FINDINGS: The nephrostomy tubes are well positioned bilaterally. There is a distal right ureteral obstruction and no contrast enters the bladder on the right. The left ureter is patent. The bladder is contracted. IMPRESSION: 1. Bilateral percutaneous nephrostomy tube change 2. Distal right ureteral obstruction. 3. Patent left ureter
== END 2016-08-15 12:16 | disposition home or self-care (01) ==
LOC: SDSVAS 07:27
PROVIDERS: ATTEND Radiology Vascular & Interventional Radiology
DX: N13.5 Crossing vessel and stricture of ureter without hydronephrosis (principal); Y84.2 Radiological procedure and radiotherapy as the cause of abnormal reaction of the patient, or of later complication, without mention of misadventure at the time of the procedure; C53.9 Malignant neoplasm of cervix uteri, unspecified; K21.9 Gastro-esophageal reflux disease without esophagitis; N30.90 Cystitis, unspecified without hematuria
CPT/HCPCS: 36415; 50435; 80048; 85025; 85610; 85730; 99152; A4358; C1729; C1769; J1644; J2405; J3010; J3480; J7030 ×2

== ENCOUNTER 2016-12-19 06:40 | Day surgery (SDC) | payer MEDICARE ==
[2016-07-13 07:24] VITALS: BMI 27.6
[2016-12-19] MEDS ORDERED: Iodixanol 320 MG/ML 100 ML BOTTLE IV ONE (07:10)
[2016-12-19] MEDS ORDERED: Lidocaine 2% Inj (20ml) ONE (07:10)
[2016-12-19 07:51] LABS: BASO # 0.04 K/mm3 (0.0-2.0); BASO % 0.8 % (0.0-3.0); EOS # 0.2 (0.0-0.7); EOS % 3.2 % (1.5-5.0); GRAN # 3.71 (1.4-6.5); GRAN % 70.1 % (50.0-68.0); HEMATOCRIT 36.2 % (36.0-48.0); LYMPH # 0.9 (1.2-3.4); LYMPH % 17.4 % (22.0-35.0); MEAN CELL VOLUME 94.8 fl (80.0-105.0); MEAN CORPUSCULAR HEMOGLOBIN 30.1 pg (25.0-35.0); MEAN CORPUSCULAR HGB CONC 31.8 g/dl (31.0-37.0); MEAN PLATELET VOLUME 9.5 fl (7.0-11.0); MONO # 0.5 (0.1-0.6); MONO % 8.5 % (1.0-6.0); RED CELL DISTRIBUTION WIDTH 14.1 % (11.5-14.5); WHITE BLOOD COUNT 5.3 10^3/ul (4.5-11.0)
[2016-12-19 08:00] LABS: CALCIUM 9.2 mg/dL (8.4-10.5); POTASSIUM 4.2 mmol/L (3.6-5.0)
[2016-12-19 08:14] LABS: INR 0.98 (0.93-1.08); PARTIAL THROMBOPLASTIN TIME 28.7 Seconds (23.7-30.8)
[2016-12-19] MEDS ORDERED: Midazolam 2 MG/2 ML VIAL ONE ×2 (08:24→09:40)
[2016-12-19] MEDS ORDERED: Oxycodone/Acetaminophen 5/325 mg Tab PO PRN (10:10)
[2016-12-19] MEDS ORDERED: Sodium Chloride 0.45% 1,000 ML IV SCH (10:15)
[2016-12-19 11:35] VITALS: BP 142/93; PULSE 76; RESP 18; TEMP 97.7; O2SAT 96
--- NOTE | 2016-12-19 17:49 | VASCULAR ---
PROCEDURE: 1. Bilateral nephrostomy tube change HISTORY: Cervical CA. Status post radiation. Radiation cystitis with hematuria. Chronic bilateral percutaneous nephrostomy tubes. PHYSICIAN(S): Bruce Black MD. TECHNIQUE: The relative risks and indications of the procedure were explained to the patient and consent obtained. The patient was placed prone on the arteriogram table and the nephrostomy tubes prepped and draped in the usual sterile fashion. Conscious sedation monitoring were provided throughout the procedure by a nurse P The left nephrostomy tube was changed 1st. Contrast was injected and a left nephrostogram performed. This revealed mild left hydronephrosis. The left ureter is normal in caliber and patent. Contrast flows into the bladder. No obstruction is seen. 0.035 guidewire was coiled in the left renal pelvis. The old tube was removed. A new 12 [place] left nephrostomy tube was placed. The catheter was flushed and secured. Next the right nephrostomy tube was addressed. Contrast was injected an AV right nephrostogram performed. There is moderate right hydronephrosis. There is a complete focal distal obstruction to the right UVJ. No contrast is seen entering the bladder on the right. 0.035 guidewire was coiled in the right renal pelvis. The old tube was removed. A new 12 [place] right nephrostomy tube was placed. The catheter was flushed and secured. FINDINGS: The left ureter is patent and drains to the bladder. There is a focal distal obstruction of the right ureter. No contrast enters the bladder on the right. IMPRESSION: 1.Successful bilateral nephrostomy tube change. 2. The left ureter is patent and normal in caliber. There is a focal distal right ureteral obstruction.
== END 2016-12-19 12:20 | disposition home or self-care (01) ==
LOC: SDSVAS 06:40
PROVIDERS: ATTEND Radiology Vascular & Interventional Radiology
DX: N30.41 Irradiation cystitis with hematuria (principal); N13.1 Hydronephrosis with ureteral stricture, not elsewhere classified; C53.9 Malignant neoplasm of cervix uteri, unspecified; I25.10 Atherosclerotic heart disease of native coronary artery without angina pectoris; K21.9 Gastro-esophageal reflux disease without esophagitis; Y84.2 Radiological procedure and radiotherapy as the cause of abnormal reaction of the patient, or of later complication, without mention of misadventure at the time of the procedure
CPT/HCPCS: 36415; 50435; 80048; 85025; 85610; 85730; 99152; A4358; C1729; C1769; J1644; J2250; J2405; J3010; J7030; Q9967

== ENCOUNTER 2017-03-21 11:12 | Day surgery (SDC) | payer MEDICARE ==
[2017-03-19 11:08] VITALS: BMI 27.9
[2017-03-21] MEDS ORDERED: Lidocaine 2% Inj (20ml) ONE (12:17)
[2017-03-21] MEDS ORDERED: Iodixanol 320 MG/ML 100 ML BOTTLE IV ONE (12:18)
[2017-03-21 12:29] LABS: BASO # 0.05 K/mm3 (0.0-2.0); EOS # 0.2 (0.0-0.7); EOS % 3.2 % (1.5-5.0); GRAN # 3.48 (1.4-6.5); GRAN % 69.1 % (50.0-68.0); HEMATOCRIT 37.8 % (36.0-48.0); LYMPH % 19.1 % (22.0-35.0); MEAN CELL VOLUME 95.2 fl (80.0-105.0); MEAN CORPUSCULAR HEMOGLOBIN 30.5 pg (25.0-35.0); MEAN PLATELET VOLUME 9.3 fl (7.0-11.0); MONO # 0.4 (0.1-0.6); MONO % 7.6 % (1.0-6.0)
[2017-03-21] MEDS ORDERED: Midazolam 2 MG/2 ML VIAL ONE ×3 (12:29→14:44)
[2017-03-21 12:44] LABS: CALCIUM 9.5 mg/dL (8.4-10.5); POTASSIUM 4.1 mmol/L (3.6-5.0)
[2017-03-21 12:50] LABS: INR 1.05 (0.93-1.08); PARTIAL THROMBOPLASTIN TIME 31.9 Seconds (25.1-36.5)
[2017-03-21] MEDS ORDERED: Oxycodone/Acetaminophen 5/325 mg Tab PO PRN (15:08)
[2017-03-21] MEDS ORDERED: Sodium Chloride 0.45% 1,000 ML IV SCH (15:15)
[2017-03-21] MEDS ORDERED: Morphine 5 MG/ML SYRINGE IVP STA (16:06)
[2017-03-21] MEDS ORDERED: Morphine 2 mg/ml ISec IVP STA (16:07)
[2017-03-21] MEDS ORDERED: Morphine 2 mg/ml ISec ONE (16:07)
[2017-03-21] MEDS ORDERED: Morphine 2 mg/ml ISec SC ONE (16:08)
[2017-03-21] MEDS ORDERED: Morphine 2 mg/ml ISec IVP ONE (16:08)
[2017-03-21 16:52] VITALS: PULSE 92; RESP 20; O2SAT 98
[2017-03-21 18:01] VITALS: BP 108/60; TEMP 98
--- NOTE | 2017-03-21 18:26 | VASCULAR ---
PROCEDURE: 1. Bilateral nephrostomy tube change HISTORY: Cervical cancer. Status post radiation therapy. Radiation induced hemorrhagic cystitis. Chronic bilateral nephrostomy tubes. Needs change PHYSICIAN(S): Bruce Black MD. TECHNIQUE: The relative risks and indications of the procedure were explained to the patient and consent obtained. The patient was placed prone on the arteriogram table and the nephrostomy tubes prepped and draped usual sterile fashion. Conscious sedation monitoring were provided throughout the procedure by a nurse. The right catheter was addressed 1st. Contrast was injected and a right nephrostogram performed. This revealed moderate residual hydronephrosis. Once again an occlusion of the distal right ureter is seen. No contrast enters the bladder. 0.035 glidewire was coiled in the right renal pelvis. The old tube was removed. A new 12 [place] right nephrostomy tube was coiled in the right renal pelvis. The catheter was flushed and secured. Next the left catheter was addressed. Once again contrast was injected and a left nephrostogram performed. There is moderate left hydronephrosis. Contrast flows readily into the bladder. 0.035 guidewire was coiled left renal pelvis. The old catheter was removed. A new 12 [place] left nephrostomy tube was placed. Position was confirmed with injection of contrast the tube was flushed and secured. The patient tolerated the procedure well. FINDINGS: There is moderate to severe bilateral hydronephrosis. On the left, a contrast flows readily into the bladder. On the right, a distal right ureteral obstruction. No contrast enters the bladder. IMPRESSION: 1.Successful bilateral nephrostomy tube change 2. Distal right ureteral obstruction. No contrast enters the bladder. The left ureter is patent.
== END 2017-03-21 18:00 | disposition home or self-care (01) ==
LOC: SDSVAS 11:12
PROVIDERS: ATTEND Radiology Vascular & Interventional Radiology
DX: N30.40 Irradiation cystitis without hematuria (principal); N13.1 Hydronephrosis with ureteral stricture, not elsewhere classified; C53.9 Malignant neoplasm of cervix uteri, unspecified; Y84.2 Radiological procedure and radiotherapy as the cause of abnormal reaction of the patient, or of later complication, without mention of misadventure at the time of the procedure; Z92.3 Personal history of irradiation
CPT/HCPCS: 36415; 50435; 80048; 85025; 85610; 85730; 99152; 99153; A4358; C1729; C1769; J0360; J1644; J2250; J2270; J2405; J3010; J7030 ×2; J7120; Q9967

== ENCOUNTER 2017-08-22 10:40 | Day surgery (SDC) | payer MEDICARE ==
[2017-03-19 11:08] VITALS: BMI 27.9
[2017-08-22 11:24] LABS: BASO # 0.03 K/mm3 (0.0-2.0); BASO % 0.6 % (0.0-3.0); EOS # 0.2 (0.0-0.7); EOS % 2.8 % (1.5-5.0); GRAN # 3.86 (1.4-6.5); GRAN % 72.1 % (50.0-68.0); HEMOGLOBIN 10.9 g/dL (12.0-16.0); LYMPH % 18.3 % (22.0-35.0); MEAN CORPUSCULAR HEMOGLOBIN 29.8 pg (25.0-35.0); MEAN CORPUSCULAR HGB CONC 31.7 g/dl (31.0-37.0); MONO # 0.3 (0.1-0.6); MONO % 6.2 % (1.0-6.0); RBC 3.66 10^6/uL (3.5-6.1); RED CELL DISTRIBUTION WIDTH 13.7 % (11.5-14.5); WHITE BLOOD COUNT 5.4 10^3/ul (4.5-11.0)
[2017-08-22 11:31] LABS: CALCIUM 9.1 mg/dL (8.4-10.5)
[2017-08-22 11:33] LABS: INR 0.96 (0.93-1.08); PARTIAL THROMBOPLASTIN TIME 29.7 Seconds (25.1-36.5)
[2017-08-22] MEDS ORDERED: Lidocaine 2% Inj (20ml) ONE (15:26)
[2017-08-22] MEDS ORDERED: Iodixanol 320 mg/ml 150 ml Bottle IV ONE (15:26)
[2017-08-22] MEDS ORDERED: Midazolam 2 MG/2 ML VIAL ONE (15:26)
[2017-08-22] MEDS ORDERED: Oxycodone/Acetaminophen 5/325 mg Tab PO PRN (16:57)
[2017-08-22] MEDS ORDERED: Sodium Chloride 0.45% 1,000 ML IV SCH (17:00)
[2017-08-22 18:12] VITALS: BP 178/92; PULSE 78; RESP 20; TEMP 97; O2SAT 95
--- NOTE | 2017-08-22 19:56 | VASCULAR ---
PROCEDURE: 1. Bilateral nephrostomy tube change HISTORY: Cervical CA. Severe radiation cystitis. Chronic percutaneous nephrostomy tubes for urinary diversion. Needs nephrostomy tube change PHYSICIAN(S): Bruce Black MD. TECHNIQUE: The relative risks and indications of the procedure were explained to the patient and consent obtained. The patient was placed prone on the arteriogram table and the nephrostomy tubes prepped and draped usual sterile fashion. Conscious sedation monitoring were provided throughout the procedure by nurse. 1 percent xylocaine was used to anesthetize the skin at the tube insertion sites. The right nephrostomy tube was addressed 1st. Contrast was injected and a right nephrostogram performed. This revealed a distal right ureteral occlusion at the level of the sacrum. No contrast enters the bladder. 0.035 guidewire was coiled in the right renal pelvis. The tube was removed. A new 12 [place] pigtail nephrostomy tube was coiled in the right renal pelvis. Position was confirmed with injection of contrast. The tube was secured and placed to gravity drainage. The left nephrostomy tube was addressed next. Contrast was injected and a left nephrostogram performed. This revealed a patent left ureter and contrast run into a normal appearing but small bladder. 0.035 guidewire was coiled in the left renal pelvis. The old tube was removed. A new 12 [place] pigtail catheter was placed in the left renal pelvis. Its position was confirmed with injection of contrast. Given the appearance of the left ureter, the left nephrostomy tube was secured and and capped. If the patient tolerates the tube being capped without pain, leakage or fever, the tube can be removed 7-10 days. FINDINGS: Mild to moderate bilateral hydronephrosis is seen. There is a complete obstruction to the distal right ureter at the level lower sacrum. No contrast enters the bladder. The left ureter is normal and drains rapidly into the bladder. A trial of capping the left nephrostomy tube will be performed. IMPRESSION: 1.Bilateral nephrostomy tube change. 2. Distal right ureteral obstruction. No contrast enters the bladder. 3. The left ureters patent and drains limb readily into a small bladder. A trial capping of the left nephrostomy tube will be performed.
== END 2017-08-22 19:00 | disposition home or self-care (01) ==
LOC: SDSVAS 10:40
PROVIDERS: ATTEND Radiology Vascular & Interventional Radiology
DX: N30.40 Irradiation cystitis without hematuria (principal); C53.9 Malignant neoplasm of cervix uteri, unspecified; N13.5 Crossing vessel and stricture of ureter without hydronephrosis; N13.30 Unspecified hydronephrosis; I25.10 Atherosclerotic heart disease of native coronary artery without angina pectoris; I25.2 Old myocardial infarction
CPT/HCPCS: 36415; 50435; 80048; 85025; 85610; 85730; 99152; A4358; C1729; C1769; J1644; J2250; J3010; J7030

== ENCOUNTER 2017-10-30 09:22 | Day surgery (SDC) | payer MEDICARE ==
[2017-10-23 09:24] VITALS: BMI 27.7
[2017-10-30] MEDS ORDERED: Propofol 10 mg/ml Inj (20 ML) ONE ×2 (11:20→11:35)
[2017-10-30] MEDS ORDERED: Etomidate 20 mg/10ml Inj IV ONE (11:32)
[2017-10-30] MEDS ORDERED: Sodium Chloride 0.9% 1,000 ML IV SCH (12:15)
[2017-10-30] MEDS ORDERED: Morphine 4 mg/ml ISec ONE (12:25)
[2017-10-30] MEDS ORDERED: Morphine 2 mg/ml ISec IVP ONE (12:25)
[2017-10-30] MEDS ORDERED: Morphine 4 mg/ml ISec IVP ONE (12:26)
[2017-10-30 14:02] VITALS: BP 135/83; PULSE 76; RESP 16; TEMP 98.2; O2SAT 96
== END 2017-10-30 13:55 | disposition home or self-care (01) ==
LOC: ENDO 09:22
PROVIDERS: ATTEND Internal Medicine Gastroenterology
DX: K22.70 Barrett's esophagus without dysplasia (principal); K31.1 Adult hypertrophic pyloric stenosis; K63.3 Ulcer of intestine; K92.2 Gastrointestinal hemorrhage, unspecified; R13.10 Dysphagia, unspecified; Z85.41 Personal history of malignant neoplasm of cervix uteri; K29.50 Unspecified chronic gastritis without bleeding; K31.9 Disease of stomach and duodenum, unspecified
CPT/HCPCS: 43239; 45378; 88305; 88312; 88342; J2001; J2270 ×2; J2405; J2704; J7030

== ENCOUNTER 2017-12-23 09:30 | Observation (INO) | payer MEDICARE, OTHER ==
--- NOTE | 2017-12-23 09:41 | ED PDOC ---
Arrival/HPI - General Time Seen by Provider: 12/23/17 09:33 Historian: Patient - History of Present Illness Narrative History of Present Illness (Text): 12/23/17 09:36 67 y/o female, pmh including cervical cancer in remission/bilateral nephrostomy tubes/anemia/rectal ulcer/barrets esophogus, nkda, c/o on and off rectal bleeding for the past few months and been feeling fatigue/tired lately. Pt. stated that she has been having on and off bleeding for the past few months, bright red blood, associated with fatigue and tired lately for the past few weeks, stated that she was schedule to have colonoscopy but never got it done, no abdominal pain, no night sweat, no rash, no dizziness, no change in vision, no other medical or psychological complaints. Past Medical History - Provider Review Nursing Documentation Reviewed: Yes - Infectious Disease Hx of Infectious Diseases: None - Tetanus Immunization Tetanus Immunization: Unknown - Cardiac Hx Pacemaker: No - Pulmonary Hx Respiratory Disorders: Yes Hx Asthma: Yes Hx Sleep Apnea: Yes - Neurological Hx Paralysis: No - HEENT Other/Comment: left tympanic tubes placed - Renal Hx Renal Failure: Yes Other/Comment: Nephrostomy tubes bilateral, 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 - Endocrine/Metabolic Hx Endocrine Disorders: No - Hematological/Oncological Hx Blood Transfusions: Yes (03/2015) Hx Blood Transfusion Reaction: No - Integumentary Hx Dermatological Disorder: Yes Hx Psoriasis: Yes - Musculoskeletal/Rheumatological Hx Musculoskeletal Disorders: Yes (R WRIST FX R/T FALL 06/2015) - Gastrointestinal Hx Gastroesophageal Reflux: Yes - Genitourinary/Gynecological Other/Comment: Internal nephrostomy surgery. - Psychiatric Hx Emotional Abuse: No Hx Physical Abuse: No Hx Substance Use: No - Surgical History Hx Cardiac Catheterization: Yes Hx Coronary Stent: Yes Hx Hysterectomy: Yes Other/Comment: nephrostomy tubes,CARDIAC STENTS ,HYSTERECTOMY,RIGHT ANKLE FX, - Anesthesia Hx Anesthesia Reactions: No Hx Malignant Hyperthermia: No - Suicidal Assessment Feels Threatened In Home Enviroment: No Family/Social History - Physician Review Nursing Documentation Reviewed: Yes Family/Social History: Unknown Family HX Smoking Status: Never Smoked Hx Alcohol Use: No Hx Substance Use: No Hx Substance Use Treatment: No Allergies/Home Meds Allergies/Adverse Reactions: Allergies No Known Allergies Allergy (Verified 12/23/17 09:44) Home Medications: Home Meds Medication Instructions Recorded Confirmed Oxycodone HCl/Acetaminophen 1 tab PO Q6H PRN 02/12/15 12/23/17 [Percocet 5-325 mg Tablet] Sertraline [Zoloft] 25 mg PO QAM 04/06/15 12/23/17 Docusate Sodium [Dc' 100 mg PO DAILY PRN 11/08/15 12/23/17 Laxative] Ergocalciferol (Vitamin D2) 50,000 iu PO Sun11/08/15 12/23/17 [Vitamin D2] Tranexamic Acid [Lysteda] 2 tab PO BID 11/08/15 12/23/17 Ascorbic Acid [Vitamin C] 1 tab PO DAILY 12/12/16 12/23/17 Esomeprazole Magnesium [Nexium] 20 mg PO DAILY 10/23/17 12/23/17 Famotidine [Pepcid] 20 mg PO DAILY 12/23/17 12/23/17 Ferrous Sulfate [Ferosul] 1 tab PO QOTHERDAY 12/23/17 12/23/17 Review of Systems - Review of Systems Constitutional: Fatigue. absent: Fevers Eyes: absent: Vision Changes ENT: absent: Hearing Changes Respiratory: absent: SOB, Cough Cardiovascular: absent: Chest Pain Gastrointestinal: Hematochezia. absent: Abdominal Pain, Diarrhea, Nausea, Vomiting Musculoskeletal: absent: Arthralgias, Back Pain Skin: absent: Rash, Pruritis Neurological: absent: Headache, Dizziness Psychiatric: absent: Anxiety, Depression, Suicidal Ideation Physical Exam Vital Signs Reviewed: Yes Vital Signs Temp Pulse Resp BP Pulse Ox 12/23/17 12:42 91 H 18 161/82 H 98 12/23/17 09:42 98.2 F 85 19 153/59 H 99 Temperature: Afebrile Blood Pressure: Hypertensive Pulse: Regular Respiratory Rate: Normal Appearance: Positive for: Well-Appearing, Non-Toxic, Comfortable Pain Distress: None Mental Status: Positive for: Alert and Oriented X 3 - Systems Exam Head: Present: Atraumatic, Normocephalic Pupils: Present: PERRL Extroacular Muscles: Present: EOMI Conjunctiva: Present: Normal Mouth: Present: Moist Mucous Membranes Neck: Present: Normal Range of Motion Respiratory/Chest: Present: Clear to Auscultation, Good Air Exchange. No: Respiratory Distress, Accessory Muscle Use Cardiovascular: Present: Regular Rate and Rhythm, Normal S1, S2. 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 +guaiac with moris blood). No: Occult Blood, Rectal Tenderness, Gross Blood, Melena, Fissures, Nodule/Mass/Lesions Back: Present: Normal Inspection, Other (+bilatearl nephrostomy tubes noted on the posterior lower flank region bilaterally with no cellulitis or streaking/ ulcer. ) Upper Extremity: Present: Normal Inspection. No: Cyanosis, Edema Lower Extremity: Present: Normal Inspection. No: Edema Neurological: Present: GCS=15, CN II-XII Intact, Speech Normal Skin: Present: Warm, Dry, Normal Color. No: Rashes Psychiatric: Present: Alert, Oriented x 3, Normal Insight, Normal Concentration Medical Decision Making ED Course and Treatment: 12/23/17 09:38 -Labs/UA/type and screen -CT Abdomen and pelvis -CXR -IVF @ 100cc/hr and protonix -IV Observe and reassess 12/23/17 09:56 -Pt. declined rectal exam by me, requesting ER attending DR. Renteria to be performed, told Dr. Renteria about this request. -Pt. refused chest xray 12/23/17 12:52 -Guaiac is positive -CT abdomen and pelvis show No acute findings -CXR ordered but declined by patient -Labs show no acute findings except hgb 10.0, BUN 26 from 35, Creatine 2.0 from 1.7 -Paging GI Dr. Sumner and PMD Dr. Ford to formulate plan of care as she has moris hematochezia. 12/23/17 12:53 -Case discussed and labs discussed with Dr. Renteria, he agreed on the diagnosis/ treatment and admission plan. 12/23/17 13:25 -Patient request pain med for her chronic abdominal pain, morphine 4mg IV ordered, Negative CT for acute abdomen. 12/23/17 15:47 -I spoke to Dr. Ford, PMD, agreed to admit the patient with Dr. Sumner on the consult for colonoscopy, he will follow up on any pending labs/radiology studies but request Dr. Oliva/Dr. Boggs for clearance prior to colonoscopy and order PT/PTT as he would follow up. -I spoke to PARISH Bates, discussed about the case/labs/radiology results, request the following order: As per Dr. Sumner (GI), drink half gallon at 5am and another half gallon at 6am, finish by 9am with PO liquid diet for tonight, he would perform the colonoscopy tomorrow. -I discussed with the patient about the plan of care and she agreed to be admitted with all labs/radiology results discussed. 12/23/17 16:01 -Dr. Ford is on the blue list, as per Dr. Renteria to admit the patient to Dr. Evaristo Eddy. 12/23/17 16:06 -There is no tele bed, as per Dr. Renteria to change the order to med/surg. 12/23/17 16:31 -Dr. Mike called back, covering for DR. Boggs, discussed about the lab work and case, would see the patient tomorrow. - Lab Interpretations Lab Results: 12/23/17 10:10 12/23/17 10:10 Lab Results 12/23/17 10:10: Blood Type O POSITIVE, Antibody Screen Negative, BBK History Checked Patient has bt 12/23/17 10:10: WBC 7.2 D, RBC 3.46 L, Hgb 10.0 L, Hct 32.0 L, MCV 92.5, MCH 28.9, MCHC 31.3, RDW 13.8, Plt Count 272, MPV 9.1, Gran % 77.7 H, Lymph % (Auto ) 13.6 L, Bleckley % (Auto) 5.7, Eos % (Auto) 2.4, Baso % (Auto) 0.6, Gran # 5.61, Lymph # (Auto) 1.0 L, Bleckley # (Auto) 0.4, Eos # (Auto) 0.2, Baso # (Auto) 0.04 12/23/17 10:10: Sodium 139, Potassium 4.1, Chloride 104, Carbon Dioxide 25, Anion Gap 14, BUN 26 H, Creatinine 2.0 H, Est GFR ( Amer) 30, Est GFR ( Non-Af Amer) 25, Random Glucose 89, Calcium 9.0, Magnesium 2.2, Total Bilirubin 0.4, AST 28, ALT 12, Alkaline Phosphatase 102, Total Protein 7.6, Albumin 4.0, Globulin 3.6, Albumin/Globulin Ratio 1.1 I have reviewed the lab results: Yes - RAD Interpretation Radiology Orders: 12/23/17 11:47 ABDOMEN & PELVIS [ABD & PELVIS W/O PO OR IV CONT] [CT] Stat PROCEDURE: CT Abdomen and Pelvis without intravenous contrast HISTORY: rectal bleeding? COMPARISON: None. TECHNIQUE: Without contrast.. Contrast dose: Radiation dose: Total exam DLP = 945 mGy-cm. This CT exam was performed using one or more of the following dose reduction techniques: Automated exposure control, adjustment of the mA and/or kV according to patient size, and/or use of iterative reconstruction technique. FINDINGS: LOWER THORAX: Unremarkable. LIVER: Unremarkable. No gross lesion or ductal dilatation. GALLBLADDER AND BILE DUCTS: Unremarkable. PANCREAS: Unremarkable. No gross lesion or ductal dilatation. SPLEEN: Unremarkable. ADRENALS: Unremarkable. No mass. KIDNEYS AND URETERS: Bilateral nephrostomy tubes in place. No evidence of hydronephrosis VASCULATURE: Unremarkable. No aortic aneurysm. BOWEL: Unremarkable. No obstruction. No gross mural thickening. There is moderate constipation APPENDIX: Unremarkable. Normal appendix. PERITONEUM: Unremarkable. No free fluid. No free air. LYMPH NODES: Unremarkable. No enlarged lymph nodes. BLADDER: Unremarkable. REPRODUCTIVE: Unremarkable. BONES: No acute fracture. OTHER FINDINGS: None. IMPRESSION: No acute findings - Medication Orders Current Medication Orders: Sodium Chloride (Sodium Chloride 0.9%) 1,000 mls @ 100 mls/hr IV .Q10H SHELBY Last Admin: 12/23/17 10:00 Dose: 100 mls/hr eMAR Start Stop Document 12/23/17 10:00 SUDO (Rec: 12/23/17 10:36 SUDO [id number]) Intravenous Solution Start Date 12/23/17 Start Time 10:00 Polyethylene Glycol/Electrolytes (Golytely) 2,000 ml PO ONCE SHELBY Polyethylene Glycol/Electrolytes (Golytely) 2,000 ml PO ONCE SHELBY Discontinued Medications Morphine Sulfate (Morphine) 4 mg IVP STAT STA Stop: 12/23/17 13:25 Last Admin: 12/23/17 13:39 Dose: 4 mg MAR Pain Assessment Document 12/23/17 13:39 SUDOJ (Rec: 12/23/17 13:41 [facility] [id number]) Pain Reassessment Is this a pain reassessment? No Sleep Is patient sleeping during reassessment? No Presence of Pain Presence of Pain Yes Pain Scale Used Pain Scale Used Numeric Location Pain Location Body Site Sacrum Description Description Constant Pain Behavior Irritability IVP Administration Document 12/23/17 13:39 [facility] (Rec: 12/23/17 13:41 [id number] Charges for Administration # of IVP Administrations 1 Pantoprazole Sodium (Protonix Inj) 40 mg IVP STAT STA Stop: 12/23/17 09:42 Last Admin: 12/23/17 10:10 Dose: 40 mg IVP Administration Document 12/23/17 10:10 [facility] (Rec: 12/23/17 10:44 [id number][facility] Charges for Administration # of IVP Administrations 1 Polyethylene Glycol/Electrolytes (Golytely) 2,000 ml PO ONCE SHELBY - PA / LOAF COUNTER / Resident Statement /DO has reviewed & agrees with the documentation as recorded. / has examined the patient and agrees with the treatment plan. Disposition/Present on Arrival - Present on Arrival Any Indicators Present on Arrival: No History of DVT/PE: No History of Uncontrolled Diabetes: No Urinary Catheter: No History of Decub. Ulcer: No History Surgical Site Infection Following: None - Disposition Have Diagnosis and Disposition been Completed?: Yes Diagnosis: Anemia, Hematochezia, GI bleed Disposition: HOSPITALIZED Disposition Time: 15:37 Patient Plan: Admission, Observation, Telemetry Patient Problems: Current Active Problems Problem Status Onset Anemia Acute GI bleed Acute Hematochezia Acute
[2017-12-23 09:46] VITALS: BMI 26.6
[2017-12-23] MEDS: Sodium Chloride 0.9% 1,000 ML IV SCH ×2 (10:00→20:25)
[2017-12-23 10:59] LABS: ALB/GLOB RATIO 1.1 (1.1-1.8)
[2017-12-23 11:17] LABS: BASO # 0.04 K/mm3 (0.0-2.0); BASO % 0.6 % (0.0-3.0); EOS # 0.2 (0.0-0.7); EOS % 2.4 % (1.5-5.0); GRAN # 5.61 (1.4-6.5); GRAN % 77.7 % (50.0-68.0); LYMPH % 13.6 % (22.0-35.0); MEAN CELL VOLUME 92.5 fl (80.0-105.0); MEAN CORPUSCULAR HEMOGLOBIN 28.9 pg (25.0-35.0); MEAN CORPUSCULAR HGB CONC 31.3 g/dl (31.0-37.0); MEAN PLATELET VOLUME 9.1 fl (7.0-11.0); MONO # 0.4 (0.1-0.6); MONO % 5.7 % (1.0-6.0); RBC 3.46 10^6/uL (3.5-6.1); RED CELL DISTRIBUTION WIDTH 13.8 % (11.5-14.5); WHITE BLOOD COUNT 7.2 10^3/ul (4.5-11.0)
--- NOTE | 2017-12-23 12:46 | CT ---
Date of service: 12/23/2017 PROCEDURE: CT Abdomen and Pelvis without intravenous contrast HISTORY: rectal bleeding? COMPARISON: None. TECHNIQUE: Without contrast.. Contrast dose: Radiation dose: Total exam DLP = 945 mGy-cm. This CT exam was performed using one or more of the following dose reduction techniques: Automated exposure control, adjustment of the mA and/or kV according to patient size, and/or use of iterative reconstruction technique. FINDINGS: LOWER THORAX: Unremarkable. LIVER: Unremarkable. No gross lesion or ductal dilatation. GALLBLADDER AND BILE DUCTS: Unremarkable. PANCREAS: Unremarkable. No gross lesion or ductal dilatation. SPLEEN: Unremarkable. ADRENALS: Unremarkable. No mass. KIDNEYS AND URETERS: Bilateral nephrostomy tubes in place. No evidence of hydronephrosis VASCULATURE: Unremarkable. No aortic aneurysm. BOWEL: Unremarkable. No obstruction. No gross mural thickening. There is moderate constipation APPENDIX: Unremarkable. Normal appendix. PERITONEUM: Unremarkable. No free fluid. No free air. LYMPH NODES: Unremarkable. No enlarged lymph nodes. BLADDER: Unremarkable. REPRODUCTIVE: Unremarkable. BONES: No acute fracture. OTHER FINDINGS: None. IMPRESSION: No acute findings
[2017-12-23] MEDS ORDERED: Morphine 4 mg/ml ISec IVP STA (13:24)
[2017-12-23 18:07] LABS: INR 1.05; PARTIAL THROMBOPLASTIN TIME 31.5 Seconds (25.1-36.5)
[2017-12-23] MEDS ORDERED: DiphenhydrAMINE 50 mg/ml Inj IVP PRN (21:29)
[2017-12-23] MEDS ORDERED: DiphenhydrAMINE 50 mg/ml Inj IVP STA (21:44)
[2017-12-23] MEDS ORDERED: Morphine 2 mg/ml ISec IVP STA (23:07)
[2017-12-24] MEDS ORDERED: Peg-Electrolyte Oral Soln 4L (Golytely) PO SCH ×2 (05:00→06:00)
[2017-12-24] MEDS: Peg-Electrolyte Oral Soln 4L (Golytely) PO SCH (05:21)
[2017-12-24 07:16] LABS: BASO # 0.04 K/mm3 (0.0-2.0); BASO % 0.7 % (0.0-3.0); EOS # 0.1 (0.0-0.7); EOS % 2.4 % (1.5-5.0); GRAN # 4.39 (1.4-6.5); GRAN % 74.5 % (50.0-68.0); HEMOGLOBIN 9.7 g/dL (12.0-16.0); INR 1.07; LYMPH # 0.9 (1.2-3.4); LYMPH % 15.6 % (22.0-35.0); MEAN CELL VOLUME 92.6 fl (80.0-105.0); MEAN CORPUSCULAR HEMOGLOBIN 28.6 pg (25.0-35.0); MEAN CORPUSCULAR HGB CONC 30.9 g/dl (31.0-37.0); MEAN PLATELET VOLUME 8.6 fl (7.0-11.0); MONO # 0.4 (0.1-0.6); MONO % 6.8 % (1.0-6.0); PROTHROMBIN TIME 12.3 SECONDS (9.4-12.5); RBC 3.39 10^6/uL (3.5-6.1); RED CELL DISTRIBUTION WIDTH 13.8 % (11.5-14.5); WHITE BLOOD COUNT 5.9 10^3/ul (4.5-11.0)
[2017-12-24 07:54] LABS: ALB/GLOB RATIO 1.1 (1.1-1.8); ALBUMIN 3.6 g/dL (3.0-4.8)
--- NOTE | 2017-12-24 09:08 | HP ---
LOCATION: The patient is admitted through the emergency room on 12/23/2017, currently in bed, room 370, bed 2. 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 History of rectal bleeding in the past secondary to rectal ectasia, status post laser therapy done about a year and a half ago, history of ulcers and Watkins's esophagus, status post recent endoscopy, history of old CVA with successful recovery with documented stroke. 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 Patient also is on tranexamic acid to prevent recurrent bleeding. She is now admitted through the Emergency Room for observation as she has been having increasing rectal bleeding, which had been intermittent over the past month and a half, was supposed to be scheduled for a colonoscopy, but has not had a chance to have it done yet. Patient presented to the ER, complaining of fatigue for the past several weeks along with the rectal bleeding. She denies any rash, dizziness, change in vision. No abdominal pain, fevers or chills. PAST MEDICAL HISTORY: Significant for severe coronary artery disease with four stents, all of them are metallic stents. Patient has been on aspirin, has been off Plavix, under the supervision and care of Dr. Oliva. History of chronic renal dysfunction, has been followed and seen in the past by [facility], Dr. Boggs and Dr. Mike. History of bilateral nephrostomies with exchange of nephrostomies every 4 months, done by Dr. Bruce Black. Has had two prior cystoscopies in the past by Dr. Hubert Aburto. Has had multiple transfusions in the past for anemia and currently her hemoglobin is stabilized. She has been placed on tranexamic acid and has not required transfusion for more than one year till these recent complaints for which she is currently admitted. REVIEW OF SYSTEMS: A 12-system review of systems was done and they were all negative except for what is mentioned in the HPI. ALLERGIES: PATIENT HAS NO KNOWN ALLERGIES. HOME MEDICATIONS: Patient's home medications include the following, she is on oxycodone 5/325 one tablet every 6 hours p.r.n. She is on docusate 100 mg daily, vitamin D2 50,000 units once a day. She is on tranexamic acid 650 mg tablet two tablets b.i.d., vitamin B one tablet daily, esomeprazole, Nexium 20 mg daily, famotidine 20 mg daily, ferrous sulfate one tablet p.o. daily. She is on Zoloft 50 mg daily. PHYSICAL EXAMINATION: VITAL SIGNS: Stable. T-max is 98.2, pulse is 85, respirations 18, blood pressure is 161/82, pulse ox is 98% on room air. HEENT: Head is normocephalic, atraumatic. Conjunctivae pale. Sclerae are anicteric. Pupils are equally reactive to light and accommodation. Examination of the oropharynx reveals poor dentition. No oropharyngeal lesions are noted. NECK: Supple. There is no adenopathy. LUNGS: Clear to percussion and auscultation. CARDIOVASCULAR: Reveals PMI to be in the fifth intercostal space inside the midclavicular line. S1 and S2 are normal. No gallop or murmur is heard. ABDOMEN: Soft, nontender. Bowel sounds are present. No rebound, rigidity or guarding is noted. RECTAL: Patient had a rectal exam done in the ER, which showed no rectal tenderness but gross blood. EXTREMITIES: Reveals upper and lower extremities to be normal without any peripheral edema, cyanosis or clubbing. NEUROLOGIC: Higher functions are normal. No focal deficits are noted. Plantars are flexors. SKIN: Skin turgor is normal. No skin lesions are noted. PSYCHIATRIC: Patient is awake, alert and oriented and has normal insight as to her condition and what needs to be done. LABORATORY DATA: Reviewed. White count is 7.2, hemoglobin 10, hematocrit 32, platelet count 272,000. Sodium is 139, K is 4.1, chloride is 104, CO2 is 25, BUN is 26, creatinine is 2, which is slightly higher. There is a creatinine ranges between 1.5 and 1.7. Blood sugar is 89. Patient's blood type is O positive. Antibody screen is negative. Patient had a CAT scan of the abdomen done with and without contrast of the abdomen and pelvis done shows no major pathology with bilateral nephrostomy tubes without any acute changes in the kidneys. ASSESSMENT, NOTES AND PLAN: New onset of rectal bleeding probably related to rectal ectasia bleeding, which may need to be cauterized again. We spoke to Dr. Sumner who advised the patient to be admitted, so that he can do the procedure tomorrow morning. In the meantime, we will watch the patient as observation. Monitor blood counts. Check her coags on a.m. and hopefully will have the procedure done for the morning. Labs for a.m. have been requested. In the meantime, we will continue to monitor the patient very carefully in preparation for the procedure in a.m. Patient has new onset of rectal bleeding which along with documented bleeding from the upper gastrointestinal tract, which is being addressed with the medications by mouth. Patient may need colonoscopy and laser therapy for rectal ectasia and that is what the problem is. Other pathology has to be ruled out upon colonoscopy. Patient has significant coronary artery disease, need to be assessed and cleared by Cardiology prior to the colonoscopy requiring conscious sedation. We will continue to monitor the blood count to make sure the hemoglobin does not go down while in the hospital. Please make a note, this is a complex patient with multiple comorbid medical issues. Time more than 80 minutes, which more than 50% of the time was in face to face encounter. Gudelia Ford MD
[2017-12-24] MEDS: Oxycodone/Acetaminophen 5/325 mg Tab PO PRN ×2 (11:17→23:47)
--- NOTE | 2017-12-24 12:52 | CP.PCM.PN ---
Subjective - Date & Time of Evaluation Date of Evaluation: 12/24/17 Time of Evaluation: 12:47 - Subjective Subjective: Heme/Onc Progress Note for Dr. Ford -- Rosendo Ashby DO PGY2 Patient seen and examined at bedside. No acute overnight events. Patient is complaining of generalized abdominal pain that was present prior to admission. Patient states she was unable to complete bowel prep as golytely made her vomit. Patient denied CP, SOB, n/v, fever, chills, VALENCIA, or dizziness. Objective - Vital Signs/Intake and Output Vital Signs (last 24 hours): Temp Pulse Resp BP Pulse Ox 99.5 F 85 20 117/94 H 98 12/24/17 08:13 12/24/17 08:13 12/24/17 08:13 12/24/17 08:13 12/24/17 08:13 - Medications Medications: Current Medications Ascorbic Acid (Vitamin C 500 Mg Tab) 500 mg PO DAILY SHELBY Docusate Sodium (Colace) 100 mg PO DAILY PRN PRN Reason: Constipation Ergocalciferol (Drisdol 50,000 Intl Units Cap) 1 cap PO FRI SHELBY Ferrous Sulfate (Feosol) 324 mg PO QOTHERDAY SHELBY Sodium Chloride (Sodium Chloride 0.9%) 1,000 mls @ 100 mls/hr IV .Q10H [facility] Last Admin: 12/23/17 20:25 Dose: 100 mls/hr Tranexamic Acid [ Lysteda] 2 Tab ( Home Med) 2 tab PO BID SHELBY Oxycodone/Acetaminophen (Percocet 5/325 Mg Tab) 1 tab PO Q6H PRN PRN Reason: Pain, moderate (4-7) Stop: 12/27/17 10:26 Last Admin: 12/24/17 11:17 Dose: 1 tab Polyethylene Glycol/Electrolytes (Golytely) 2,000 ml PO ONCE SHELBY Polyethylene Glycol/Electrolytes (Golytely) 2,000 ml PO ONCE SHELBY Last Admin: 12/24/17 05:21 Dose: Not Given Sertraline HCl (Zoloft) 25 mg PO QAM SHELBY - Labs Labs: 12/24/17 07:00 12/24/17 07:00 PT 12.3 SECONDS (9.4-12.5) 12/24/17 07:00 INR 1.07 12/24/17 07:00 APTT 31.5 Seconds (25.1-36.5) 12/23/17 17:35 - Constitutional Appears: No Acute Distress - Head Exam Head Exam: NORMAL INSPECTION - Eye Exam Eye Exam: Normal appearance Pupil Exam: NORMAL ACCOMODATION - ENT Exam ENT Exam: Mucous Membranes Moist - Neck Exam Neck Exam: Normal Inspection - Respiratory Exam Respiratory Exam: Clear to Ausculation Bilateral. absent: Rales, Rhonchi, Wheezes - Cardiovascular Exam Cardiovascular Exam: RRR, +S1, +S2. absent: Gallop, Rubs, Murmur - GI/Abdominal Exam GI & Abdominal Exam: Soft, Tenderness (generalized). absent: Distended, Guarding, Rebound - Extremities Exam Extremities Exam: Normal Inspection - Back Exam Back Exam: NORMAL INSPECTION - Neurological Exam Neurological Exam: Alert, Awake, Oriented x3 - Psychiatric Exam Psychiatric exam: Normal Affect, Normal Mood - Skin Skin Exam: Dry, Intact, Normal Color, Warm Assessment and Plan - Assessment and Plan (Free Text) Assessment: 67 yo F with stage 3B cervical cancer s/p chemo/radiation, rectal ectasias, CKD , radiation cystitis s/p nephrostomy tube, CAD, ME, psoriasis, depression, Watkins's, CVA, and anemia admitted for evaluation and treatment for GI bleed. Plan: - Flex sig per GI this afternoon - NPO for flex sig - H/H stable at this time, will continue to monitor - Percocet for pain - PO Iron with colace for anemia - Cont Zoloft - Cardiology consulted, h/o CAD/ME, cardiac clearance - Nephrology consulted, h/o CKD, nephrostomy tube - Protonix for GI PPx - SCD's for DVT PPx Case reviewed and discussed with Dr. Ford. Rosendo Ashby, DO PGY2
--- NOTE | 2017-12-24 16:20 | CP.PCM.CON ---
<Oskar Garcia - Last Filed: 12/24/17 18:16> History of Present Illness - History of Present Illness History of Present Illness: GI Consult Note for Dr. Sumner's Service - Lola PGY2 Reason for Consult: GI Bleed, Rectal Ulcer, Colonoscopy Mrs. Kitchen is a 67 year old female with a past medical history significant for stage III cervical cancer s/p chemo and radiation therapy (five years ago), CKD, bilateral nephrostomy tubes, CAD, [place], psoriasis, and depression who presented with intermittent rectal bleeding for the past few months with associated fatigue. She reports that this has gotten worse over the past few weeks without obvious initiating factor. She reports that she does have BM's without blood as well. She reports that she was scheduled to have a colonoscopy done several weeks ago but that she was unable to complete this. She denies any other complaints at this time including changes in diet, recent travel, sick contacts, recent illness, fevers, chills, headache, chest pain, SOB, abdominal pain, N/V/C, hematemesis, melena, changes in urine output, or any skin changes. PMH: As stated above PSH: Nephrostomy tube placement, chemo/radiation five years ago Family History: Denies Social History: Denies any tobacco, alcohol or illicit drug use Allergies: NKDA Home Medications: As per DENICE Endo: EGD (10/2017): Watkins's esophagus and chronic gastritis PMD: Dr. Ford Review of Systems - Review of Systems Review of Systems: As stated in HPI, otherwise negative Past Patient History - Infectious Disease Hx of Infectious Diseases: None - Tetanus Immunizations Tetanus Immunization: Unknown - Past Medical History & Family History Past Medical History?: Yes - Past Social History Smoking Status: Never Smoked - CARDIAC Hx Pacemaker: No - PULMONARY Hx Respiratory Disorders: Yes Hx Asthma: Yes Hx Sleep Apnea: Yes - NEUROLOGICAL Hx Transient Ischemic Attacks (TIA): Yes (20yrs ago) - HEENT Other/Comment: left tympanic tubes placed - RENAL Hx Renal Failure: Yes Other/Comment: Nephrostomy tubes bilateral, 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 - PSYCHIATRIC Hx Emotional Abuse: No Hx Physical Abuse: No Hx Substance Use: No - SURGICAL HISTORY Hx Cardiac Catheterization: Yes Hx Coronary Stent: Yes Hx Hysterectomy: Yes Other/Comment: nephrostomy tubes,CARDIAC STENTS ,HYSTERECTOMY,RIGHT ANKLE FX, - ANESTHESIA Hx Anesthesia Reactions: No Hx Malignant Hyperthermia: No Meds Allergies/Adverse Reactions: Allergies Allergy/AdvReac Type Severity Reaction Status Date / Time No Known Allergies Allergy Verified 12/23/17 09:44 - Medications Medications: Current Medications Ascorbic Acid (Vitamin C 500 Mg Tab) 500 mg PO DAILY [facility] Docusate Sodium (Colace) 100 mg PO DAILY PRN PRN Reason: Constipation Ergocalciferol (Drisdol 50,000 Intl Units Cap) 1 cap PO FRI [facility] Ferrous Sulfate (Feosol) 324 mg PO QOTHERDAY [facility] Sodium Chloride (Sodium Chloride 0.9%) 1,000 mls @ 100 mls/hr IV .Q10H [facility] Last Admin: 12/23/17 20:25 Dose: 100 mls/hr Tranexamic Acid [ Lysteda] 2 Tab ( Home Med) 2 tab PO BID [facility] Oxycodone/Acetaminophen (Percocet 5/325 Mg Tab) 1 tab PO Q6H PRN PRN Reason: Pain, moderate (4-7) Stop: 12/27/17 10:26 Last Admin: 12/24/17 11:17 Dose: 1 tab Pantoprazole Sodium (Protonix Inj) 40 mg IVP DAILY [facility] Polyethylene Glycol/Electrolytes (Golytely) 2,000 ml PO ONCE [facility] Polyethylene Glycol/Electrolytes (Golytely) 2,000 ml PO ONCE [facility] Last Admin: 12/24/17 05:21 Dose: Not Given Sertraline HCl (Zoloft) 25 mg PO QAM [facility] Physical Exam - Constitutional Appears: Non-toxic, No Acute Distress - Head Exam Head Exam: ATRAUMATIC, NORMOCEPHALIC - Eye Exam Eye Exam: EOMI - Neck Exam Neck exam: Positive for: Full Rom - Respiratory Exam Respiratory Exam: NORMAL BREATHING PATTERN. absent: Accessory Muscle Use, Respiratory Distress - Cardiovascular Exam Cardiovascular Exam: +S1, +S2 - GI/Abdominal Exam GI & Abdominal Exam: Normal Bowel Sounds, Soft. absent: Bruit, Diminished Bowel Sounds, Distended, Firm, Guarding, Hernia, Hyperactive Bowel Sounds, Hypoactive Bowel Sounds, Mass, Organomegaly, Pulsatile Mass, Rebound, Rigid, Tenderness - Rectal Exam Rectal Exam: Bloody Stool. absent: NORMAL INSPECTION - Neurological Exam Neurological exam: Alert, Oriented x3 - Psychiatric Exam Psychiatric exam: Normal Affect, Normal Mood - Skin Skin Exam: Dry, Intact, Normal Color, Warm Results - Vital Signs Recent Vital Signs: Last Vital Signs Temp 99.5 F 12/24/17 08:13 Pulse 85 12/24/17 08:13 Resp 20 12/24/17 08:13 BP 117/94 H 12/24/17 08:13 Pulse Ox 98 12/24/17 08:13 - Labs Result Diagrams: 12/24/17 07:00 12/24/17 07:00 Labs: Laboratory Results - last 24 hr 12/23/17 12/24/17 12/24/17 17:35 07:00 07:00 WBC 5.9 RBC 3.39 L Hgb 9.7 L Hct 31.4 L MCV 92.6 MCH 28.6 MCHC 30.9 L RDW 13.8 Plt Count 225 MPV 8.6 Gran % 74.5 H Lymph % (Auto) 15.6 L [place] % (Auto) 6.8 H Eos % (Auto) 2.4 Baso % (Auto) 0.7 Gran # 4.39 Lymph # (Auto) 0.9 L [place] # (Auto) 0.4 Eos # (Auto) 0.1 Baso # (Auto) 0.04 PT 12.0 12.3 INR 1.05 1.07 APTT 31.5 Sodium Potassium Chloride Carbon Dioxide Anion Gap BUN Creatinine Est GFR ( Amer) Est GFR (Non-Af Amer) Random Glucose Calcium Total Bilirubin AST ALT Alkaline Phosphatase Total Protein Albumin Globulin Albumin/Globulin Ratio 12/24/17 07:00 WBC RBC Hgb Hct MCV MCH MCHC RDW Plt Count MPV Gran % Lymph % (Auto) [place] % (Auto) Eos % (Auto) Baso % (Auto) Gran # Lymph # (Auto) [place] # (Auto) Eos # (Auto) Baso # (Auto) PT INR APTT Sodium 143 Potassium 4.5 Chloride 110 H Carbon Dioxide 26 Anion Gap 12 BUN 22 H Creatinine 1.7 H Est GFR ( Amer) 36 Est GFR (Non-Af Amer) 30 Random Glucose 86 Calcium 9.0 Total Bilirubin 0.3 AST 28 ALT 15 Alkaline Phosphatase 84 Total Protein 6.9 Albumin 3.6 Globulin 3.3 Albumin/Globulin Ratio 1.1 Assessment & Plan - Assessment and Plan (Free Text) Assessment: 67 year old female with a past medical history significant for stage III cervical cancer s/p chemo and radiation therapy (five years ago), CKD, bilateral nephrostomy tubes, CAD, [place], psoriasis, and depression who presented with intermittent rectal bleeding for the past few months with associated fatigue. Plan: -CT Abdomen/Pelvis showed moderate constipation -Split prep failed as patient had N/V -Given 5mg Reglan and instructed to finish as much prep as tolerable -H/H currently stable but noted to be below patients baseline -NPO Diet -IV Protonix 40mg daily -Continue Colace PRN for constipation GI Disposition: Patient to finish as much prep as tolerated and will go for Flex Sig today (12/24). Treatment and further recommendations based on results of this. Patient seen and case discussed with attending, Dr. Sumner. - Date & Time Date: 12/24/17 Time: 16:19 <Harvey Sumner V - Last Filed: 12/25/17 22:24> Results - Vital Signs Recent Vital Signs: Last Vital Signs Temp 98.2 F 12/25/17 08:26 Pulse 81 12/25/17 08:26 Resp 20 12/25/17 08:26 BP 161/91 H 12/25/17 08:26 Pulse Ox 97 12/25/17 08:26 - Labs Result Diagrams: 12/25/17 06:00 12/25/17 06:00 Labs: Laboratory Results - last 24 hr 12/25/17 12/25/17 06:00 06:00 WBC 7.3 D RBC 3.71 Hgb 10.8 L Hct 34.1 L MCV 91.9 MCH 29.1 MCHC 31.7 RDW 13.7 Plt Count 298 MPV 9.1 Gran % 74.1 H Lymph % (Auto) 15.0 L [place] % (Auto) 7.2 H Eos % (Auto) 3.0 Baso % (Auto) 0.7 Gran # 5.38 Lymph # (Auto) 1.1 L [place] # (Auto) 0.5 Eos # (Auto) 0.2 Baso # (Auto) 0.05 Sodium 141 Potassium 3.5 L Chloride 104 Carbon Dioxide 27 Anion Gap 13 BUN 20 Creatinine 1.6 H Est GFR ( Amer) 39 Est GFR (Non-Af Amer) 32 Random Glucose 83 Calcium 9.0 Phosphorus 3.9 Magnesium 2.0 Total Bilirubin 0.4 AST 29 ALT 16 Alkaline Phosphatase 96 Total Protein 7.9 Albumin 4.1 Globulin 3.8 Albumin/Globulin Ratio 1.1 Attending/Attestation - Attestation I have personally seen and examined this patient.: Yes I have fully participated in the care of the patient.: Yes I have reviewed all pertinent clinical information: Yes Notes (Text): This is an addendum to GI consult report dictated by the Tire Trucker.The patient was seen and evaluated earlier. Medical records, lab studies, imagings were reviewed. Last 24 hours events reviewed. Agreed with the above treatment plan as outlined in Tire Trucker 's notes with the addition of the following This patient has history of cervical CA status post RT History of rectal telengectasia Status post APC in the past Patient has difficulty in bowl preparation for colonoscopy Finally agreed and scheduled for procedure today 12/25/17 22:22
[2017-12-24] MEDS: TRANEXAMIC ACID PO SCH (18:09)
[2017-12-24] MEDS ORDERED: Propofol 10 mg/ml Inj (20 ML) ONE ×2 (18:13→18:42)
[2017-12-24] MEDS ORDERED: Midazolam 2 MG/2 ML VIAL ONE (18:13)
[2017-12-24] MEDS ORDERED: Sodium Chloride 0.9% 1,000 ML IV SCH (19:15)
[2017-12-24] MEDS: Sodium Chloride 0.9% 1,000 ML IV SCH (20:55)
[2017-12-24] MEDS ORDERED: Bisacodyl 5mg EC Tab PO ONE (21:33)
--- NOTE | 2017-12-25 00:16 | CON ---
DATE: 12/24/2017 REASON FOR CONSULTATION: Acute kidney injury superimposed on chronic kidney disease, stage III. HISTORY OF PRESENTING ILLNESS: A 67-year-old lady admitted on 12/23/2017, with complaints of rectal bleeding. The patient has a history of rectal ectasia status post laser therapy done about a year and half ago. She has been having intermittent rectal bleeding. She was admitted yesterday because of increased rectal bleeding. She was scheduled to have an outpatient colonoscopy, but came to the hospital because of increasing fatigue, poor appetite, some nausea. She denied any fever, chills. No shortness of breath. No chest pain. In the emergency room, she was found to have no hemodynamic derangement. She was afebrile. Her initial creatinine was 2. She does have history of chronic kidney disease, but her baseline creatinine is around 1.5. Hence consultation is requested for acute kidney injury superimposed on chronic kidney disease. PAST MEDICAL AND SURGICAL HISTORY: Stage IIIB CA of the cervix in clinical remission, history of chemoradiation, history of bilateral hydronephrosis, bilateral percutaneous nephrostomies, rectal ectasia, history of laser treatment, history of Watkins's esophagus, old CVA, recurrent UTI, hematuria, radiation cystitis, CAD, PTCA and stents, chronic kidney disease stage III, recurrent anemia requiring blood transfusion. FAMILY HISTORY: Noncontributory. SOCIAL HISTORY: No smoking, no alcohol use, no IV drug abuse. ALLERGIES: NO KNOWN DRUG ALLERGIES. MEDICATIONS AT HOME: Oxycodone 5/325, Colace, vitamin D, tranexamic acid 650 two tablets b.i.d., omeprazole, iron, Zoloft. REVIEW OF SYSTEMS: All systems are reviewed, pertinent positives as mentioned in history presenting illness, rest unremarkable. PHYSICAL EXAMINATION: GENERAL: Elderly lady lying in bed, in no acute distress. VITAL SIGNS: Blood pressure 117/94, heart rate 89, respiratory rate 20, temperature 98.2. HEENT: Normocephalic, atraumatic, positive pallor. NECK: Supple, no JVD. LUNGS: Bilateral equal entry, bilateral equal expansion. CARDIAC: S1, S2, regular rate rhythm, no murmur, no rub. ABDOMEN: Obese, distended, soft, diffuse mild tenderness, bowel sounds present. EXTREMITIES: No lower extremity edema. INTAKE AND OUTPUT: Not charted. LABORATORY DATA: WBC 5.9, hemoglobin 9.7, hematocrit 31, platelets 225. Sodium 143, potassium 4.5, chloride 110, CO2 of 26, BUN 22, creatinine 1.7, glucose 86, calcium 9, AST 28, ALT 15. CT of the abdomen and pelvis with oral contrast done yesterday shows bilateral nephrostomy tubes in place. No evidence of hydronephrosis, no acute findings. CURRENT MEDICATIONS: Colace, Drisdol, Enulose, Feosol, GoLYTELY, Lopressor 25 b.i.d., oxycodone, Protonix, normal saline at 100, tranexamic acid, vitamin C, Zoloft. ASSESSMENT: 1. Acute kidney injury superimposed on chronic kidney disease stage III. 2. Prerenal azotemia/dehydration. 3. Rectal bleeding. 4. Chronic anemia. 5. Cervical cancer. 6. History of rectal ectasia. 7. Coronary artery disease, history of percutaneous transluminal coronary angioplasty and stents x 4. PLAN: 1. Renal function seems to be slowly improving. Creatinine is approaching baseline. Continue IV fluids. 2. Monitor H and H. 3. Avoid nephrotoxins. 4. Follow up endoscopy report. Thank you for the courtesy of this consultation. We will follow this patient closely with you. Obdulia Boggs MD
[2017-12-25 00:55] VITALS: RESP 20
--- NOTE | 2017-12-25 01:18 | CON ---
DATE: 12/24/2017 SERVICE: CARDIOLOGY DICTATING PHYSICIAN: Debby Oliva MD REASON FOR CONSULTATION: Preop evaluation of risk stratification for colonoscopy, admitted with bleeding per rectum, history of coronary artery disease. 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 Cardiology consult will call for preop evaluation, risk stratification. Patient denies any chest pain, shortness of breath, or any palpitation. PAST MEDICAL HISTORY: Significant for cervical cancer with complication to the blood and rectum. Status post bilateral nephrostomy, history of coronary artery disease, history of the stent with a bare metal in the past. Hypertension, hyperlipidemia, renal insufficiency, history of anemia, history of nephrostomy as before. PREVIOUS CARDIAC WORKUP FOLLOWS: Patient had stress test on 05/15/2016 that shows equivocal SPECT myocardial perfusion study, partially reversible inferior defect suspicious for ischemia, however, shift in position best cannot be ruled out, ejection fraction is 63% dated 05/15/2015. History of last echocardiography of 05/09/2016 shows preserve LV function, ejection fraction 70%, diastolic dysfunction, [id number] mitral regurgitation, mild tricuspid regurgitation, trace pulmonary insufficiency, systolic pressure of 43. Patients bilateral carotid duplex that shows moderate plaque in both ICA and CCA with stenosis of 40 to 59% in right ICA and 20 to 39% left ICA stenosis. Patient has a stress test on 05/15/2016 as mentioned with suspicion of ischemia. The patient refused cardiac catheterization and opted for medical treatment. Patient denies any chest pain. SOCIAL HISTORY: Denies smoking. Denies any history of alcohol abuse. CURRENT MEDICATIONS: Patient had chemotherapy listed, Zoloft, Percocet, Fefol, Pepcid, magnesium, vitamin C. ALLERGIES: NO KNOWN DRUG ALLERGIES. PHYSICAL EXAMINATION: As follows: VITAL SIGNS: Height of the patient 5 feet, 6 inches, weight of the patient 165 pounds, body mass index 26.6 kg/sq. m. Temperature afebrile, heart rate 89, blood pressure 130/92. HEENT: PERRLA. Extraocular muscles intact. NECK: Supple. No carotid bruits or thyromegaly. CHEST: Clear to auscultation. HEART: S1 and S2, regular. ABDOMEN: Soft. EXTREMITIES: Clubbing and cyanosis negative. LABORATORY DATA: Blood workup as follows, WBC 5.9, hemoglobin 9.7, hematocrit 31.4, platelet count 225. Chemistry shows sodium 143, potassium 4.5, chloride 110, carbon dioxide 26, anion gap of 4, BUN 22, creatinine 1.7. Patient's last EKG done here on revealed normal sinus, occasional PVCs. Today's EKG is pending. 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 History of nephrostomy, renal insufficiency status post percutaneous transluminal coronary angioplasty with a bare metal stent in the past, history of stress test in 2017, abnormal suspicious, not definite, but patient opted for medical treatment. Echo shows preserved left ventricular function. No evidence of angina. No evidence of congestive heart failure. No evidence of acute myocardial infarction. Risks, benefits ratio discussed with the patient. Patient is actively bleeding. Patient has more benefit to go for colonoscopy. We will clear the patient with a high risk procedure, no absolute contraindication ([id number] risk of absolute contraindication). In the interim continue current medication. We will suggest low-dose beta-theodore as tolerated and we will follow with you. Further recommendation as per hospital course. We will follow with you. Thank you, Dr. Ford, for providing us the opportunity in taking care of the patient, Glenna Kitchen. Debby Oliva MD
[2017-12-25 07:19] LABS: BASO # 0.05 K/mm3 (0.0-2.0); BASO % 0.7 % (0.0-3.0); EOS # 0.2 (0.0-0.7); GRAN # 5.38 (1.4-6.5); GRAN % 74.1 % (50.0-68.0); HEMOGLOBIN 10.8 g/dL (12.0-16.0); LYMPH # 1.1 (1.2-3.4); MEAN CELL VOLUME 91.9 fl (80.0-105.0); MEAN CORPUSCULAR HEMOGLOBIN 29.1 pg (25.0-35.0); MEAN CORPUSCULAR HGB CONC 31.7 g/dl (31.0-37.0); MEAN PLATELET VOLUME 9.1 fl (7.0-11.0); MONO # 0.5 (0.1-0.6); MONO % 7.2 % (1.0-6.0); RBC 3.71 10^6/uL (3.5-6.1); RED CELL DISTRIBUTION WIDTH 13.7 % (11.5-14.5); WHITE BLOOD COUNT 7.3 10^3/ul (4.5-11.0)
--- NOTE | 2017-12-25 07:37 | CP.PCM.PN ---
Subjective - Date & Time of Evaluation Date of Evaluation: 12/25/17 Time of Evaluation: 07:05 - Subjective Subjective: Awake, alert, no distress Reason for consultation and follow up: Cardiac evaluation and risk stratification for colonoscopy, admitted for rectal bleeding, history of coronary artery disease Seen and examined by me and Dr. Oliva Objective - Vital Signs/Intake and Output Vital Signs (last 24 hours): Temp Pulse Resp BP Pulse Ox 98.4 F 99 H 20 169/99 H 96 12/25/17 00:00 12/25/17 01:17 12/25/17 00:00 12/25/17 01:17 12/25/17 00:00 Intake and Output: 12/25/17 12/25/17 06:59 18:59 Intake Total 1635 Output Total 550 Balance 1085 - Medications Medications: Current Medications Ascorbic Acid (Vitamin C 500 Mg Tab) 500 mg PO DAILY [facility] Docusate Sodium (Colace) 100 mg PO DAILY PRN PRN Reason: Constipation Ergocalciferol (Drisdol 50,000 Intl Units Cap) 1 cap PO FRI [facility] Ferrous Sulfate (Feosol) 324 mg PO QOTHERDAY [facility] Sodium Chloride (Sodium Chloride 0.9%) 1,000 mls @ 100 mls/hr IV .Q10H [facility] Last Admin: 12/24/17 20:55 Dose: 100 mls/hr Sodium Chloride (Sodium Chloride 0.9%) 1,000 mls @ 100 mls/hr IV .Q10H [facility] Lactulose (Enulose) 20 gm PO Q8 [facility] Stop: 12/25/17 14:01 Last Admin: 12/25/17 05:53 Dose: 20 gm Metoprolol Tartrate (Lopressor) 25 mg PO BID [facility] Last Admin: 12/24/17 18:09 Dose: Not Given Tranexamic Acid [ Lysteda] 2 Tab ( Home Med) 2 tab PO BID [facility] Last Admin: 12/24/17 18:09 Dose: Not Given Oxycodone/Acetaminophen (Percocet 5/325 Mg Tab) 1 tab PO Q6H PRN PRN Reason: Pain, moderate (4-7) Stop: 12/27/17 10:26 Last Admin: 12/24/17 23:47 Dose: 1 tab Pantoprazole Sodium (Protonix Inj) 40 mg IVP DAILY [facility] Polyethylene Glycol/Electrolytes (Golytely) 2,000 ml PO ONCE [facility] Polyethylene Glycol/Electrolytes (Golytely) 2,000 ml PO ONCE [facility] Last Admin: 12/24/17 05:21 Dose: Not Given Sertraline HCl (Zoloft) 25 mg PO QAM [facility] - Labs Labs: 12/24/17 07:00 12/24/17 07:00 PT 12.3 SECONDS (9.4-12.5) 12/24/17 07:00 INR 1.07 12/24/17 07:00 APTT 31.5 Seconds (25.1-36.5) 12/23/17 17:35 - Constitutional Appears: No Acute Distress - Eye Exam Eye Exam: Normal appearance - ENT Exam ENT Exam: Mucous Membranes Moist - Respiratory Exam Respiratory Exam: Clear to Ausculation Bilateral, NORMAL BREATHING PATTERN - Cardiovascular Exam Cardiovascular Exam: +S1, +S2 - GI/Abdominal Exam GI & Abdominal Exam: Soft, Normal Bowel Sounds - Extremities Exam Extremities Exam: Normal Capillary Refill - Neurological Exam Neurological Exam: Alert, Awake, Oriented x3 - Psychiatric Exam Psychiatric exam: Normal Affect - Skin Skin Exam: Dry, Warm Assessment and Plan - Assessment and Plan (Free Text) Assessment: A 67 year old female who came in to the ER due to rectal bleeding. History of coronary artery disease with stents, hypertension, hyperlipidemia,CA, stage III cervical cancer s/p chemo and radiation therapy (five years ago), CKD stage lll , bilateral nephrostomy tubes, rectal ectasia, post laser therapy about a year and half ago, Baretts esophagus, old CVA. Cardiac consult to clear patient for colonoscopy. Cleared patient for the procedure with moderate to high risk. Status post colonoscopy/sigmoidoscopy- stercoral ulcer. Plan: No distress,comfortable Denies chest pain, denies short of breath Heart rate stable Uncontrolled blood pressure Will increase Lopressor Continue current treatment Continue current medications Will follow up Plan and treatment discussed with Dr. Oliva
[2017-12-25 07:40] LABS: ALB/GLOB RATIO 1.1 (1.1-1.8); ALBUMIN 4.1 g/dL (3.0-4.8)
[2017-12-25 08:28] VITALS: BP 161/91; PULSE 81; TEMP 98.2; O2SAT 97
[2017-12-25] MEDS: Oxycodone/Acetaminophen 5/325 mg Tab PO PRN (08:29)
--- NOTE | 2017-12-25 08:33 | CP.PCM.PN ---
Subjective - Date & Time of Evaluation Date of Evaluation: 12/25/17 Time of Evaluation: 08:31 - Subjective Subjective: GI Progress Note for Dr. Sumner's Service- Lola, PGY2 Patient seen and assessed at bedside. No acute events overnight noted. Patient currently denies any fevers, chills, chest pain, SOB, abdominal pain, N/V/D, changes in urine output or any skin changes. Objective - Vital Signs/Intake and Output Vital Signs (last 24 hours): Temp Pulse Resp BP Pulse Ox 98.2 F 81 20 161/91 H 97 12/25/17 08:26 12/25/17 08:26 12/25/17 08:26 12/25/17 08:26 12/25/17 08:26 Intake and Output: 12/25/17 12/25/17 06:59 18:59 Intake Total 1635 Output Total 550 Balance 1085 - Medications Medications: Current Medications Ascorbic Acid (Vitamin C 500 Mg Tab) 500 mg PO DAILY SHELBY Docusate Sodium (Colace) 100 mg PO DAILY PRN PRN Reason: Constipation Ergocalciferol (Drisdol 50,000 Intl Units Cap) 1 cap PO FRI SHELBY Ferrous Sulfate (Feosol) 324 mg PO QOTHERDAY [facility] Hydralazine HCl (Apresoline) 10 mg IVP Q6 PRN PRN Reason: uncontrolled blood pressure Sodium Chloride (Sodium Chloride 0.9%) 1,000 mls @ 100 mls/hr IV .Q10H [facility] Last Admin: 12/24/17 20:55 Dose: 100 mls/hr Sodium Chloride (Sodium Chloride 0.9%) 1,000 mls @ 100 mls/hr IV .Q10H [facility] Lactulose (Enulose) 20 gm PO Q8 [facility] Stop: 12/25/17 14:01 Last Admin: 12/25/17 05:53 Dose: 20 gm Metoprolol Tartrate (Lopressor) 50 mg PO BRKDIN [facility] Tranexamic Acid [ Lysteda] 2 Tab ( Home Med) 2 tab PO BID [facility] Last Admin: 12/24/17 18:09 Dose: Not Given Oxycodone/Acetaminophen (Percocet 5/325 Mg Tab) 1 tab PO Q6H PRN PRN Reason: Pain, moderate (4-7) Stop: 09/20/18 10:26 Last Admin: 12/25/17 08:29 Dose: 1 tab Pantoprazole Sodium (Protonix Inj) 40 mg IVP DAILY SHELBY Polyethylene Glycol/Electrolytes (Golytely) 2,000 ml PO ONCE SHELBY Polyethylene Glycol/Electrolytes (Golytely) 2,000 ml PO ONCE SHELBY Last Admin: 12/24/17 05:21 Dose: Not Given Sertraline HCl (Zoloft) 25 mg PO QAM SHELBY - Labs Labs: 12/25/17 06:00 12/25/17 06:00 PT 12.3 SECONDS (9.4-12.5) 12/24/17 07:00 INR 1.07 12/24/17 07:00 APTT 31.5 Seconds (25.1-36.5) 12/23/17 17:35 - Constitutional Appears: Non-toxic, No Acute Distress - Head Exam Head Exam: ATRAUMATIC, NORMOCEPHALIC - Eye Exam Eye Exam: EOMI - Respiratory Exam Respiratory Exam: NORMAL BREATHING PATTERN. absent: Accessory Muscle Use, Respiratory Distress - Cardiovascular Exam Cardiovascular Exam: +S1, +S2 - GI/Abdominal Exam GI & Abdominal Exam: Soft, Normal Bowel Sounds. absent: Bruit, Distended, Firm , Guarding, Rigid, Tenderness, Diminished Bowel Sounds, Hernia, Hyperactive Bowel Sounds, Hypoactive Bowel Sounds, Organomegaly, Pulsatile Mass, Rebound, Mass - Rectal Exam Rectal Exam: Deferred - Neurological Exam Neurological Exam: Alert, Awake, Oriented x3 - Psychiatric Exam Psychiatric exam: Normal Affect, Normal Mood - Skin Skin Exam: Dry, Intact, Normal Color, Warm Assessment and Plan - Assessment and Plan (Free Text) Assessment: 67 year old female with a past medical history significant for stage III cervical cancer s/p chemo and radiation therapy (five years ago), CKD, bilateral nephrostomy tubes, CAD, PA, psoriasis, and depression who presented with intermittent rectal bleeding for the past few months with associated fatigue. Plan: -Flex Sigmoidoscopy showed single oozing rectal ulcer with inadequate prep likely representing stercoral ulceration secondary to constipation -CT Abdomen/Pelvis showed moderate constipation -H/H stable -Heart Healthy Lactose Restricted Diet -IV Protonix 40mg daily -Miralax BID and Colace QD for constipation GI Disposition: No further GI interventions planned at this time. Patient needs aggressive bowel regimen at home to prevent constipation. Miralax BID and Colace QD with goal of one soft BM daily. Patient seen and case discussed with attending, Dr. Sumner.
[2017-12-25] MEDS ORDERED: Potassium Chloride 20 mEq ER Tab PO ONE (08:39)
[2017-12-25] MEDS ORDERED: Morphine 2 mg/ml ISec IVP ONE (10:15)
[2017-12-25] MEDS: Peg-Electrolyte Oral Soln 4L (Golytely) PO SCH (11:19)
[2017-12-25] MEDS: TRANEXAMIC ACID PO SCH (11:21)
--- NOTE | 2017-12-25 15:29 | PN ---
DATE: 12/25/2017 SUBJECTIVE: The patient is currently seen having completed her flexible sigmoidoscopy. She does have a rectal ulcer, perhaps from pressure in the bowel secondary to constipation. This is likely the bleeding source. Her hemoglobin had remained stable. The patient will likely be discharged to home later today. Her BUN and creatinine have improved to down to 20 and 1.6. The patient does have a history of chronic kidney disease stage III in the setting of bilateral obstructive uropathy with nephrostomy tubes. MEDICATIONS: Medication list reviewed. The patient is on hydralazine p.r.n., Colace, vitamin D, Enulose, Feosol, status post GoLYTELY, Lopressor, Percocet, Protonix, IV fluids which have been discontinued, tranexamic acid, vitamin C, and Zoloft. OBJECTIVE: INTAKE/OUTPUT: Intake is 2535, output is 550. VITAL SIGNS: Blood pressure presently is 161/91, temperature 98.2, respiratory rate of 20 with a pulse of 81, pulse ox is 97%. HEENT: Show her to be normocephalic, atraumatic. Conjunctivae are pink. Sclerae are nonicteric. NECK: Supple. No neck vein distention. CHEST: Clear to auscultation and percussion. No rales, rhonchi, or wheezing. CARDIOVASCULAR: Shows a regular rate and rhythm without audible murmurs, rubs, or gallops. ABDOMEN: Soft. Bowel sounds normal. No rebound or guarding. BACK: Positive bilateral nephrostomy tubes. EXTREMITIES: Show no lower extremity cyanosis, clubbing, or edema. LABORATORY DATA AND IMAGING: Abdominopelvic CT scan done on 12/23/2017, shows no acute findings. The patient has bilateral nephrostomy tubes in place without any evidence of hydronephrosis. Labs: CBC: White blood cell count 7.3, hemoglobin stable at 10.8, and platelet count is 298,000. Chemistries show a potassium of 3.5. IV fluids have been discontinued. Electrolytes otherwise normal. BUN down to 20 from a high of 26, creatinine down to 1.6 from a high of 2. Calcium, phosphorus, and magnesium level all normal. Albumin is 4.1. Liver enzymes are normal. No transfusions were given. ASSESSMENT: 1. Status post acute renal failure superimposed on chronic kidney disease stage III. This is in the setting of her having obstructive uropathy, status post bilateral nephrostomy tubes. 2. History of rectal bleeding likely secondary to a superficial ulceration in the rectal area. This is limited and should resolve. The patient was seen by GI and cleared. 3. History of anemia, stable. 4. History of cervical cancer with a history of bilateral hydronephrosis and again status post bilateral nephrostomy tube placement. 5. History of coronary artery disease, status post Percutaneous transluminal coronary angioplasty and stents, currently stable, a non-active problem. 6. Past history of cerebrovascular accident. 7. History of Watkins's esophagitis. PLAN: 1. Discussed with the patient and staff on 3-R. The patient is entirely stable from a renal standpoint. Her BUN and creatinine are down at her baseline levels. The patient has no evidence for obstructive uropathy. She has bilateral functioning nephrostomy tubes. Agree with decision to discontinue IV fluid hydration. 2. As per GI recommendation, potential discharge home later today. 3. The patient to follow up with her outpatient physicians and to have labs monitored in an outpatient setting. Arnav Mike MD
--- NOTE | 2017-12-25 15:57 | CP.PCM.DIS ---
Provider - Provider Date of Admission: 12/23/17 15:48 Attending physician: Evaristo Saldivar MD Consults: GI: Taisha Cardio: Pj Nephro: Boggs Time Spent in preparation of Discharge (in minutes): 45 Diagnosis - Discharge Diagnosis (1) Stercoral ulcer of large intestine Status: Acute Priority: High (2) GI bleed Status: Resolved Priority: High (3) Cervical cancer, FIGO stage IIIB Status: Resolved Priority: Medium Comment: History of/remission (4) Chronic kidney disease (CKD) Status: Chronic Priority: Medium (5) H/O nephrostomy Status: Chronic Priority: Medium Hospital Course - Lab Results Lab Results: Most Recent Lab Values WBC 7.3 10^3/ul (4.5-11.0) D 12/25/17 06:00 RBC 3.71 10^6/uL (3.5-6.1) 12/25/17 06:00 Hgb 10.8 g/dL (12.0-16.0) L 12/25/17 06:00 Hct 34.1 % (36.0-48.0) L 12/25/17 06:00 MCV 91.9 fl (80.0-105.0) 12/25/17 06:00 MCH 29.1 pg (25.0-35.0) 12/25/17 06:00 MCHC 31.7 g/dl (31.0-37.0) 12/25/17 06:00 RDW 13.7 % (11.5-14.5) 12/25/17 06:00 Plt Count 298 10^3/uL (120.0-450.0) 12/25/17 06:00 MPV 9.1 fl (7.0-11.0) 12/25/17 06:00 Gran % 74.1 % (50.0-68.0) H 12/25/17 06:00 Lymph % (Auto) 15.0 % (22.0-35.0) L 12/25/17 06:00 [place] % (Auto) 7.2 % (1.0-6.0) H 12/25/17 06:00 Eos % (Auto) 3.0 % (1.5-5.0) 12/25/17 06:00 Baso % (Auto) 0.7 % (0.0-3.0) 12/25/17 06:00 Gran # 5.38 (1.4-6.5) 12/25/17 06:00 Lymph # (Auto) 1.1 (1.2-3.4) L 12/25/17 06:00 [place] # (Auto) 0.5 (0.1-0.6) 12/25/17 06:00 Eos # (Auto) 0.2 (0.0-0.7) 12/25/17 06:00 Baso # (Auto) 0.05 K/mm3 (0.0-2.0) 12/25/17 06:00 PT 12.3 SECONDS (9.4-12.5) 12/24/17 07:00 INR 1.07 12/24/17 07:00 APTT 31.5 Seconds (25.1-36.5) 12/23/17 17:35 Sodium 141 mmol/L (132-148) 12/25/17 06:00 Potassium 3.5 mmol/L (3.6-5.0) L 12/25/17 06:00 Chloride 104 mmol/L (98-107) 12/25/17 06:00 Carbon Dioxide 27 mmol/L (21-33) 12/25/17 06:00 Anion Gap 13 (10-20) 12/25/17 06:00 BUN 20 mg/dL (7-21) 12/25/17 06:00 Creatinine 1.6 mg/dl (0.7-1.2) H 12/25/17 06:00 Est GFR ( Amer) 39 12/25/17 06:00 Est GFR (Non-Af Amer) 32 12/25/17 06:00 Random Glucose 83 mg/dL (70-110) 12/25/17 06:00 Calcium 9.0 mg/dL (8.4-10.5) 12/25/17 06:00 Phosphorus 3.9 mg/dL (2.5-4.5) 12/25/17 06:00 Magnesium 2.0 mg/dL (1.7-2.2) 12/25/17 06:00 Total Bilirubin 0.4 mg/dL (0.2-1.3) 12/25/17 06:00 AST 29 U/L (14-36) 12/25/17 06:00 ALT 16 U/L (7-56) 12/25/17 06:00 Alkaline Phosphatase 96 U/L (38-126) 12/25/17 06:00 Total Protein 7.9 g/dL (5.8-8.3) 12/25/17 06:00 Albumin 4.1 g/dL (3.0-4.8) 12/25/17 06:00 Globulin 3.8 gm/dL 12/25/17 06:00 Albumin/Globulin Ratio 1.1 (1.1-1.8) 12/25/17 06:00 Blood Type O POSITIVE 12/23/17 10:10 Antibody Screen Negative 12/23/17 10:10 BBK History Checked Patient has bt 12/23/17 10:10 - Hospital Course Hospital Course: Patient is a 67 yo F with stage 3B cervical cancer s/p chemo/radiation, rectal ectasias, CKD3, radiation cystitis s/p nephrostomy tube, CAD, SD, psoriasis, depression, Watkins's, CVA, and anemia [place] [facility] [place] blood per rectum for the past few months associated with fatigue. Patient states that the bleeding has been worsening over the last few weeks. Patient was scheduled for outpatient colonscopy, but was unable to complete this. In the ED, guiaic was positive and CT abdomen/pelvis was negative. Patient was admitted for GI bleed. Cardiology was consulted for preop clearance, recommendations were appreciated. Nephrology was consulted due to history of CKD and b/l nephrostomy tube management, recommendations were appreciated. GI was consulted, who performed flexible sigmoidoscopy. Flex sig showed single oozing rectal ulcer, which was consistent with a stercoral ulcer that is 2/2 constipation. Today, the patient was seen and examined at bedside. H/H remained stable and rectal bleeding had ceased. Patient's diet was increased as tolerated and she reported soft normal bowel movement. Patient was advised to take Colace and Miralax as well as soft low-residue and increased fluid intake to maintain soft bowel movements. Patient was also advised to minimize narcotic pain medication use as much as possible due to risk of constipation. Patient was instructed to follow up with Dr. Swain in 5-7 days. Patient acknowledged and agreed with plan. Case was discussed with all consultants, who agreed with plan. Discharge Prescriptions - Miralax 17 gm PO BID x10 days Home Medications to be Resumed - Nexium 20 mg PO daily - Ergocalciferol 24210 units PO weekly - Ferrous sulfate 325 mg PO every other day - Colace 100 mg PO BID - Tranexamic Acid 2 tabs PO BID - Zoloft 25 mg PO daily - Percocet 5/325 mg PO q6h prn - Vitamin C 1 tab daily Discharge Exam - Head Exam Head Exam: ATRAUMATIC, NORMOCEPHALIC - Eye Exam Eye Exam: Normal appearance Pupil Exam: NORMAL ACCOMODATION - ENT Exam ENT Exam: Normal Exam - Neck Exam Neck exam: Normal Inspection - Respiratory Exam Respiratory Exam: Decreased Breath Sounds. absent: Rales, Rhonchi, Wheezes - Cardiovascular Exam Cardiovascular Exam: RRR, +S1, +S2. absent: Diastolic murmur, Gallop, Rubs, Systolic Murmur - GI/Abdominal Exam GI & Abdominal Exam: Soft. absent: Distended, Guarding, Rebound, Tenderness - Extremities Exam Extremities exam: normal inspection - Back Exam Back exam: NORMAL INSPECTION - Neurological Exam Neurological exam: Alert, Oriented x3 - Psychiatric Exam Psychiatric exam: Normal Affect, Normal Mood - Skin Skin Exam: Dry, Intact, Normal Color, Warm Discharge Plan - Discharge Medications Prescriptions: Polyethylene Glycol 3350 [Miralax] 17 gm PO BID 10 Days ml - Follow Up Plan Condition: GOOD Disposition: HOME/ ROUTINE Instructions: Gastrointestinal Bleeding (DC) Additional Instructions: - Follow up with Dr. Ford in 5-7 days - Take Colace and Miralax twice a day - Limit percocet use as much as possible as it can cause constipation - Recommend soft low-residue diet and increase fluid intake - Resume other home medications as prescribed - Return to ED if symptoms worsen Referrals: Gudelia Ford MD [Family Provider] - Obdulia Boggs MD [Staff Provider] - Debby Oliva MD [Staff Provider] -
[2017-12-28] MEDS ORDERED: Ergocalciferol 50,000 Intl Units Cap PO SCH (10:00)
== END 2017-12-25 17:05 | disposition home or self-care (01) ==
LOC: ED 09:30 → ERH 15:48 → 3RSO 17:30
PROVIDERS: ADMIT Family Medicine; ATTEND Family Medicine
DX: K62.6 Ulcer of anus and rectum (principal); K92.1 Melena; N17.9 Acute kidney failure, unspecified; I12.9 Hypertensive chronic kidney disease with stage 1 through stage 4 chronic kidney disease, or unspecified chronic kidney disease; N18.3 Chronic kidney disease, stage 3 (moderate); E86.0 Dehydration; D64.9 Anemia, unspecified; F32.9 Major depressive disorder, single episode, unspecified; I08.1 Rheumatic disorders of both mitral and tricuspid valves; I25.10 Atherosclerotic heart disease of native coronary artery without angina pectoris; K21.9 Gastro-esophageal reflux disease without esophagitis; J45.909 Unspecified asthma, uncomplicated; G47.30 Sleep apnea, unspecified; E78.5 Hyperlipidemia, unspecified; N13.9 Obstructive and reflux uropathy, unspecified; L40.9 Psoriasis, unspecified; K29.50 Unspecified chronic gastritis without bleeding; K22.70 Barrett's esophagus without dysplasia; K59.00 Constipation, unspecified; N30.40 Irradiation cystitis without hematuria; Z93.6 Other artificial openings of urinary tract status; Z86.73 Personal history of transient ischemic attack (TIA), and cerebral infarction without residual deficits; Z85.41 Personal history of malignant neoplasm of cervix uteri; Z92.21 Personal history of antineoplastic chemotherapy; Z95.5 Presence of coronary angioplasty implant and graft; Z92.3 Personal history of irradiation
CPT/HCPCS: 36415; 74176; 80053; 83735; 84100; 85025; 85610; 85730; 86850; 86900; 96374; 96375; 96376; 99284; C9113; G0378; J1200; J2001; J2250; J2270; J2704; J2765; J7030; J7040

== ENCOUNTER 2018-01-04 13:42 | Emergency (ER) | payer MEDICARE, OTHER ==
[2018-01-04 13:43] VITALS: BMI 26.6
[2018-01-04 14:17] VITALS: RESP 18; TEMP 98.2
--- NOTE | 2018-01-04 14:30 | ED PDOC ---
Arrival/HPI - General Chief Complaint: Female Genitourinary Time Seen by Provider: 01/04/18 13:44 Historian: Patient - History of Present Illness Time/Duration: Prior to Arrival Symptom Onset: Sudden Symptom Course: Unchanged Associated Symptoms (Text): 01/04/18 14:26 Patient reports that she accidentally pulled out her left nephrostomy tube just prior to arrival. Her right nephrostomy remains in place. She was discharged from the hospital approximately one week ago. History of cervical cancer. I discussed in detail with Dr. Bruce Black and he requested that an ostomy be placed over the tube site and that routine blood work be drawn in preparation for him to replace the tube in 3 days on Sunday. She does not need to wait for blood results. Both nephrostomy tubes have been present for many years and he is not concerned that the tract will close. Past Medical History - Infectious Disease Hx of Infectious Diseases: None - Tetanus Immunization Tetanus Immunization: Unknown - Cardiac Hx Pacemaker: No - Pulmonary Hx Respiratory Disorders: Yes Hx Asthma: Yes Hx Sleep Apnea: Yes - Neurological Hx Paralysis: No - HEENT Other/Comment: left tympanic tubes placed - Renal Hx Renal Failure: Yes Other/Comment: Nephrostomy tubes bilateral, 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 - Endocrine/Metabolic Hx Endocrine Disorders: No - Hematological/Oncological Hx Blood Transfusions: Yes (03/2015) Hx Blood Transfusion Reaction: No - Integumentary Hx Dermatological Disorder: Yes Hx Psoriasis: Yes - Musculoskeletal/Rheumatological Hx Musculoskeletal Disorders: Yes (R WRIST FX R/T FALL 06/2015) - Gastrointestinal Hx Gastroesophageal Reflux: Yes - Genitourinary/Gynecological Other/Comment: Internal nephrostomy surgery. - Psychiatric Hx Emotional Abuse: No Hx Physical Abuse: No Hx Substance Use: No - Surgical History Hx Cardiac Catheterization: Yes Hx Coronary Stent: Yes Hx Hysterectomy: Yes Other/Comment: nephrostomy tubes,CARDIAC STENTS ,HYSTERECTOMY,RIGHT ANKLE FX, - Anesthesia Hx Anesthesia Reactions: No Hx Malignant Hyperthermia: No - Suicidal Assessment Feels Threatened In Home Enviroment: No Family/Social History - Physician Review Nursing Documentation Reviewed: Yes Family/Social History: Unknown Family HX Smoking Status: Never Smoked Hx Alcohol Use: No Hx Substance Use: No Hx Substance Use Treatment: No Allergies/Home Meds Allergies/Adverse Reactions: Allergies No Known Allergies Allergy (Verified 01/04/18 14:12) Home Medications: Home Meds Medication Instructions Recorded Confirmed Oxycodone HCl/Acetaminophen 1 tab PO Q6H PRN 02/12/15 12/23/17 [Percocet 5-325 mg Tablet] Sertraline [Zoloft] 25 mg PO QAM 04/06/15 12/23/17 Ergocalciferol (Vitamin D2) 50,000 iu PO Sun11/08/15 12/23/17 [Vitamin D2] Tranexamic Acid [Lysteda] 2 tab PO BID 11/08/15 12/23/17 Ascorbic Acid [Vitamin C] 1 tab PO DAILY 12/12/16 12/23/17 Esomeprazole Magnesium [Nexium] 20 mg PO DAILY 10/23/17 12/23/17 Famotidine [Pepcid] 20 mg PO DAILY 12/23/17 12/23/17 Ferrous Sulfate [Ferosul] 1 tab PO QOTHERDAY 12/23/17 12/23/17 Review of Systems - Physician Review All systems were reviewed & negative as marked: Yes - Review of Systems Constitutional: Fatigue. absent: Fevers Respiratory: Normal Cardiovascular: Normal Gastrointestinal: Abdominal Pain. absent: Constipation, Diarrhea, Nausea, Vomiting Genitourinary Female: Vaginal Bleeding. absent: Hematuria Neurological: Normal Physical Exam Vital Signs Temp Pulse Resp BP Pulse Ox 01/04/18 14:14 98.2 F 101 H 18 109/60 98 Temperature: Afebrile Blood Pressure: Normal Pulse: Regular Respiratory Rate: Normal Appearance: Positive for: Well-Appearing, Non-Toxic, Uncomfortable Pain Distress: Mild Mental Status: Positive for: Alert and Oriented X 3 - Systems Exam Head: Present: Atraumatic, Normocephalic Pupils: Present: PERRL Extroacular Muscles: Present: EOMI Conjunctiva: Present: Normal Neck: Present: Normal Range of Motion Respiratory/Chest: Present: Clear to Auscultation, Good Air Exchange. No: Respiratory Distress, Accessory Muscle Use Cardiovascular: Present: Regular Rate and Rhythm, Normal S1, S2. No: Murmurs Abdomen: Present: Other (Right nephrostomy tube in place. Left tract is open. No urine draining.). No: Tenderness, Distention, Peritoneal Signs, Rebound, Guarding Upper Extremity: Present: Normal Inspection. No: Cyanosis, Edema Lower Extremity: Present: Normal Inspection. No: Edema Neurological: Present: GCS=15, CN II-XII Intact, Speech Normal, Motor Func Grossly Intact Skin: Present: Warm, Dry, Normal Color. No: Rashes Psychiatric: Present: Alert, Oriented x 3, Normal Insight, Normal Concentration Disposition/Present on Arrival - Present on Arrival Any Indicators Present on Arrival: No History of DVT/PE: No History of Uncontrolled Diabetes: No Urinary Catheter: No History of Decub. Ulcer: No History Surgical Site Infection Following: None - Disposition Have Diagnosis and Disposition been Completed?: Yes Diagnosis: Nephrostomy tube displaced Disposition: HOME/ ROUTINE Disposition Time: 15:10 Patient Plan: Discharge Patient Problems: Current Active Problems Problem Status Onset Nephrostomy tube displaced Acute Condition: GOOD Discharge Instructions (ExitCare): How to Care for Your Nephrostomy Tube, Nephrostomy, Percutaneous Additional Instructions: Anna Marie from Dr. Black's office will call you on Sunday morning with the time to report to have nephrostomy tube replaced. Follow-up in the ER for fever 101 or above Referrals: Gudelia Ford MD [Primary Care Provider] - Follow up with primary Forms: [employer] ([place]ian)
[2018-01-04] MEDS ORDERED: Morphine 4 mg/ml ISec SC STA (15:16)
[2018-01-04 15:19] LABS: BASO # 0.04 K/mm3 (0.0-2.0); BASO % 0.8 % (0.0-3.0); EOS # 0.2 (0.0-0.7); EOS % 3.3 % (1.5-5.0); GRAN # 3.75 (1.4-6.5); GRAN % 72.6 % (50.0-68.0); HEMOGLOBIN 9.3 g/dL (12.0-16.0); LYMPH # 0.8 (1.2-3.4); LYMPH % 16.1 % (22.0-35.0); MEAN CELL VOLUME 93.2 fl (80.0-105.0); MEAN CORPUSCULAR HEMOGLOBIN 28.8 pg (25.0-35.0); MEAN CORPUSCULAR HGB CONC 30.9 g/dl (31.0-37.0); MEAN PLATELET VOLUME 8.7 fl (7.0-11.0); MONO # 0.4 (0.1-0.6); MONO % 7.2 % (1.0-6.0); RBC 3.23 10^6/uL (3.5-6.1); RED CELL DISTRIBUTION WIDTH 14.1 % (11.5-14.5); WHITE BLOOD COUNT 5.2 10^3/ul (4.5-11.0)
[2018-01-04 15:25] LABS: INR 1.04; PARTIAL THROMBOPLASTIN TIME 27.6 Seconds (25.1-36.5); PROTHROMBIN TIME 11.9 SECONDS (9.4-12.5)
[2018-01-04 15:50] LABS: ALB/GLOB RATIO 1.1 (1.1-1.8); ALBUMIN 3.7 g/dL (3.0-4.8); CALCIUM 8.7 mg/dL (8.4-10.5)
[2018-01-04 16:11] VITALS: BP 112/71; PULSE 89; O2SAT 100
[2018-01-05] MEDS ORDERED: Morphine 2 mg/ml ISec ONE (02:46)
[2018-01-05] MEDS ORDERED: Morphine 4 mg/ml ISec ONE (03:09)
== END 2018-01-04 16:11 | disposition home or self-care (01) ==
LOC: ED 13:42
DX: T83.022A Displacement of nephrostomy catheter, initial encounter (principal); Y84.8 Other medical procedures as the cause of abnormal reaction of the patient, or of later complication, without mention of misadventure at the time of the procedure; Y92.89 Other specified places as the place of occurrence of the external cause
CPT/HCPCS: 80053; 85025; 85610; 85730; 96372; 99283; J2270

== ENCOUNTER 2018-01-05 00:53 | Inpatient (IN) | payer MEDICARE, OTHER ==
[2018-01-05 01:35] VITALS: BMI 28.1
--- NOTE | 2018-01-05 02:29 | ED PDOC ---
Arrival/HPI - General Chief Complaint: Abdominal Pain Time Seen by Provider: 01/05/18 00:56 Historian: Patient - History of Present Illness Narrative History of Present Illness (Text): 01/05/18 02:28 Glenna Kitchen is a 67 year old female, whose past medical history includes stage 3 B carcinoma of the cervix, CAD with 4 coronary stents, chronic renal dysfunction, bilateral nephrostomy tubes, rectal ectasia, Watkins's esophagus, CVA, and urinary bladder bleeding s/p radiating cystitis, who presents to the ED complaining of abdominal pain. Patient states she has been experiencing suprapubic discomfort and left flank pain tonight. Patient was seen earlier yesterday after she accidentally pulled out her left nephrostomy tube, had an ostomy bag used to cover the area, and was discharged home. Patient reports she was only able to urinate a small amount at home. Patient denies any fever, chills, nausea, vomiting, diarrhea, headache, dizziness, or any other complaints. PMD: Dr. 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 - Psychiatric Hx Emotional Abuse: No Hx Physical Abuse: No Hx Substance Use: No - Surgical History Hx Cardiac Catheterization: Yes Hx Coronary Stent: Yes Hx Hysterectomy: Yes Other/Comment: nephrostomy tubes,CARDIAC STENTS ,HYSTERECTOMY,RIGHT ANKLE FX, - Anesthesia Hx Anesthesia Reactions: No Hx Malignant Hyperthermia: No - Suicidal Assessment Feels Threatened In Home Enviroment: No Family/Social History - Physician Review Nursing Documentation Reviewed: Yes Family/Social History: Unknown Family HX Smoking Status: Never Smoked Hx Alcohol Use: No Hx Substance Use: No Hx Substance Use Treatment: No Allergies/Home Meds Allergies/Adverse Reactions: Allergies No Known Allergies Allergy (Verified 01/04/18 14:12) Home Medications: Home Meds Medication Instructions Recorded Confirmed Oxycodone HCl/Acetaminophen 1 tab PO Q6H PRN 02/12/15 01/05/18 [Percocet 5-325 mg Tablet] Sertraline [Zoloft] 25 mg PO QAM 04/06/15 01/05/18 Ergocalciferol (Vitamin D2) 50,000 iu PO FRI 11/08/15 01/05/18 [Vitamin D2] Tranexamic Acid [Lysteda] 2 tab PO BID 11/08/15 01/05/18 Ascorbic Acid [Vitamin C] 1 tab PO DAILY 12/12/16 01/05/18 Esomeprazole Magnesium [Nexium] 20 mg PO DAILY 10/23/17 01/05/18 Famotidine [Pepcid] 20 mg PO DAILY 12/23/17 01/05/18 Ferrous Sulfate [Ferosul] 1 tab PO QOTHERDAY 12/23/17 01/05/18 Review of Systems - Physician Review All systems were reviewed & negative as marked: Yes - Review of Systems Constitutional: Normal. absent: Fevers Eyes: Normal ENT: Normal Respiratory: Normal. absent: SOB, Cough Cardiovascular: Normal. absent: Chest Pain Gastrointestinal: Abdominal Pain. absent: Diarrhea, Nausea, Vomiting Musculoskeletal: Back Pain. absent: Neck Pain Skin: Normal. absent: Rash Neurological: Normal. absent: Headache, Dizziness Endocrine: Normal Hemo/Lymphatic: Normal Psychiatric: Normal Physical Exam Vital Signs Reviewed: Yes Vital Signs Temp Pulse Resp BP Pulse Ox 01/05/18 01:41 98.6 F 105 H 18 126/95 H 98 Temperature: Afebrile Blood Pressure: Normal Pulse: Regular Respiratory Rate: Normal Appearance: Positive for: Well-Appearing, Non-Toxic, Comfortable Pain Distress: None Mental Status: Positive for: Alert and Oriented X 3 - Systems Exam Head: Present: Atraumatic, Normocephalic Pupils: Present: PERRL Extroacular Muscles: Present: EOMI Conjunctiva: Present: Normal Mouth: Present: Moist Mucous Membranes Neck: Present: Normal Range of Motion. No: Meningeal Signs, MIDLINE TENDERNESS, Paraspinal Tenderness Respiratory/Chest: Present: Clear to Auscultation, Good Air Exchange. No: Respiratory Distress, Accessory Muscle Use Cardiovascular: Present: Regular Rate and Rhythm, Normal S1, S2. No: Murmurs Abdomen: Present: Tenderness (Suprapubic tenderness). No: Distention, Peritoneal Signs Back: Present: Normal Inspection Upper Extremity: Present: Normal Inspection. No: Cyanosis, Edema Lower Extremity: Present: Normal Inspection. No: Edema Neurological: Present: GCS=15, CN II-XII Intact, Speech Normal Skin: Present: Warm, Dry, Normal Color. No: Rashes Psychiatric: Present: Alert, Oriented x 3, Normal Insight, Normal Concentration Medical Decision Making ED Course and Treatment: 01/05/18 02:28 Impression: 67 year old female c/o suprapubic discomfort and left flank pain. Plan: -- Labs -- UA -- IV fluids -- Morphine -- Reassess and disposition Prior Visits: Notes and results from previous visits were reviewed. Progress Notes: 01/05/18 04:[address] Ford, who is aware and agrees with plan. Accepts pt in to his service. Pt will go to [facility] observation for abdominal pain and dislodged nephrostomy tube. Requests Dr. Aburto on consult. 01/05/18 05:[address] Aburto's phone. 01/05/18 05:[address] Aburto, who agrees to consult on case. 01/05/18 05:20 CT Abdomen and Pelvis Impression: Mild increase in pelvic perirectal/pelvic cul-de-sac the thickening and stranding. Interval appearance of acute hemorrhagic products/heterogenous mildly hyperdense masslike soft tissue thickening in the lumen of the bladder. Left nephrostomy tube has been removed in the interim. Interval appearance of moderate left hydrouteronephrosis with left urolethial thickening. Unchanged moderate chronic atrophy of the right kidney with a right nephrostomy tube in place. No change. Constipation, mildly increased. Diffusely thickened bladder, mildly decreased. 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 I have reviewed the chart and agree that the record accurately reflects my personal performance of the history, physical exam, medical decision making, and the department course for this patient. I have also personally directed, reviewed, and agree with the discharge instructions and disposition. Disposition/Present on Arrival - Present on Arrival Any Indicators Present on Arrival: No History of DVT/PE: No History of Uncontrolled Diabetes: No Urinary Catheter: No History of Decub. Ulcer: No History Surgical Site Infection Following: None - Disposition Have Diagnosis and Disposition been Completed?: Yes Diagnosis: Nephrostomy tube displaced, UTI (urinary tract infection), Abdominal pain Disposition: HOSPITALIZED Disposition Time: 05:07 Patient Plan: Observation Patient Problems: Current Active Problems Problem Status Onset Abdominal pain Acute Nephrostomy tube displaced Acute UTI (urinary tract infection) Acute Condition: STABLE
[2018-01-05] MEDS ORDERED: Morphine 2 mg/ml ISec IVP STA (02:32)
[2018-01-05] MEDS: Sodium Chloride 0.9% 1,000 ML IV SCH ×2 (02:49→12:00)
[2018-01-05 03:00] LABS: HEMOGLOBIN 9.5 g/dL (12.0-16.0); MEAN CELL VOLUME 93.6 fl (80.0-105.0); MEAN CORPUSCULAR HEMOGLOBIN 29.1 pg (25.0-35.0); MEAN PLATELET VOLUME 8.9 fl (7.0-11.0); RBC 3.27 10^6/uL (3.5-6.1); RED CELL DISTRIBUTION WIDTH 14.2 % (11.5-14.5); WHITE BLOOD COUNT 7.3 10^3/ul (4.5-11.0)
[2018-01-05] MEDS ORDERED: Morphine 4 mg/ml ISec IVP STA ×2 (03:08→05:36)
[2018-01-05 03:36] LABS: ALB/GLOB RATIO 1.1 (1.1-1.8); ALBUMIN 3.9 g/dL (3.0-4.8); CALCIUM 9.1 mg/dL (8.4-10.5)
[2018-01-05 03:56] LABS: PH,URINE 6.5 (4.7-8.0); URINE BILIRUBIN NEGATIVE (NEGATIVE); URINE BLOOD MODERATE (NEGATIVE); URINE GLUCOSE (UA) NEGATIVE (NEGATIVE); URINE LEUKOCYTE ESTERASE LARGE Leu/uL (NEGATIVE); URINE PROTEIN 100 mg/dL (<30 mg/dL); URINE UROBILINOGEN 0.2 E.U./dL (<1 E.U./dL)
[2018-01-05 04:06] LABS: URINE APPEARANCE SLIGHT-CLOUDY (CLEAR); URINE COLOR YELLOW (YELLOW)
[2018-01-05 04:07] LABS: URINE AMORPHOUS SEDIMENT SMALL; URINE BACTERIA SMALL (NEG); URINE EPITHELIAL CELLS MANY /hpf (0-5); URINE RBC 20 - 25 /hpf (0-2)
[2018-01-05] MEDS ORDERED: cefTRIAXone 1 gm 1 GM/100 ML BAG IV STA (05:02)
[2018-01-05] MEDS ORDERED: HYDROmorphone 1 mg/ml ISec IVP STA (09:09)
[2018-01-05] MEDS ORDERED: Oxycodone/Acetaminophen 5/325 mg Tab PO PRN (09:53)
[2018-01-05] MEDS ORDERED: TRANEXAMIC ACID PO SCH (10:00)
--- NOTE | 2018-01-05 10:08 | CT ---
Date of service: 01/05/2018 PROCEDURE: CT Abdomen and Pelvis without intravenous contrast HISTORY: Left flank pain. Cervical cancer Relevant medical history: . COMPARISON: 01/24/2016 and 12/23/2017. CT abdomen and pelvis TECHNIQUE: Unenhanced. Neither IV nor oral contrast administered Radiation dose: Total exam DLP = 689.47 mGy-cm. This CT exam was performed using one or more of the following dose reduction techniques: Automated exposure control, adjustment of the mA and/or kV according to patient size, and/or use of iterative reconstruction technique. FINDINGS: LOWER THORAX: Unremarkable. LIVER: Unremarkable. No gross lesion or ductal dilatation. GALLBLADDER AND BILE DUCTS: Unremarkable. PANCREAS: Unremarkable. No gross lesion or ductal dilatation. SPLEEN: Unremarkable. ADRENALS: Unremarkable. No mass. KIDNEYS AND URETERS: Right kidney in ureter: Nephrostomy catheter identified in an atrophic right kidney. No upper tract abnormalities identified. Left kidney: Status post removal of left nephrostomy catheter. Hydronephrosis is a new finding compared to the prior CT scan. There is hydroureter identified as well. VASCULATURE: Unremarkable. No aortic aneurysm. BOWEL: Constipation without fecal impaction or obstruction. APPENDIX: Unremarkable. Normal appendix. PERITONEUM: Unremarkable. No free fluid. No free air. LYMPH NODES: Unremarkable. No enlarged lymph nodes. BLADDER: The bladder is decompressed. No discrete bladder wall abnormalities. However there is debris/hemorrhagic products layering in the bladder. The bladder wall is inseparable from a thickened rectum. The etiology of these findings is uncertain. They are however unchanged compared to the prior study. REPRODUCTIVE: A normal uterus is not visible. There postoperative changes likely related to prior hysterectomy. BONES: No acute fracture. OTHER FINDINGS: None. IMPRESSION: Status post removal of left nephrostomy catheter. New left hydronephrosis and hydroureter. Stable findings with respect to the rectum and adjacent soft tissues likely postoperative perhaps post radiation change. Debris/clot/hemorrhagic products in the bladder common new findings. Additional benign and/or incidental findings described above.
[2018-01-05] MEDS: POLYETHYLENE GLYCOL 3350 17 GM/Dose PACKET PO SCH ×3 (10:42→17:05)
[2018-01-05] MEDS ORDERED: TRANEXAMIC ACID 650 MG PO ONE (11:00)
[2018-01-05] MEDS: HYDROmorphone 1 mg/ml ISec IVP PRN ×3 (12:20→20:07)
[2018-01-05] MEDS ORDERED: DiphenhydrAMINE 50 mg/ml Inj IVP ONE ×2 (12:20→22:14)
[2018-01-05] MEDS: TRANEXAMIC ACID 650 MG PO SCH (17:07)
--- NOTE | 2018-01-06 00:12 | CON ---
DATE: 01/05/2018 CARDIOLOGY CONSULT REASON FOR CONSULTATION: Coronary artery disease. HISTORY OF PRESENT ILLNESS: The patient is 67 years old female who has a history of stage III carcinoma of the cervix, history of CAD with multiple coronary stenting in the past, bilateral nephrostomy, history of CVA in the past, presented because suprapubic discomfort as well as left flank pain. The patient denies any retrosternal chest pain at this time. The patient was evaluated recently on the by Dr. Oliva when she presented to us because of rectal bleeding. According to him, the patient refused cardiac catheterization and opted for medical therapy. SOCIAL HISTORY: Nonsmoker. MEDICATIONS: Dilaudid 1 mg intravenously every 3 hours p.r.n., Pepcid 20 mg p.o. twice a day, Percocet one tablet every 6 hours, Protonix 40 mg p.o. once a day, normal saline 100 mL an hour, and Zoloft 25 mg once a day. PHYSICAL EXAMINATION: GENERAL: The patient is an elderly female who does not appear to be in acute distress. VITAL SIGNS: Blood pressure 165/97, heart rate 104, temperature 98.3, and respirations 19. HEENT: Pale conjunctivae. CHEST: Minimal rhonchi. HEART: S1 and S2, regular. EXTREMITIES: No edema. LABORATORY DATA: Hemoglobin and hematocrit 9.5 and 30.6, white count and platelet count are within normal limit. Today's BUN and creatinine are 28 and 1.9. The rest of SMA-7 is within normal limits. The most recent EKG within 07/2017, which revealed sinus rhythm with PVCs. Abdomen and pelvis CT scan performed yesterday revealed status post removal of left nephrostomy catheter, new left hydronephrosis and hydroureter, stable findings rectum and adjacent soft tissue, likely postoperatively, perhaps post radiation changes. Debris/clot/hemorrhage products in the bladder, new findings. ASSESSMENT: 1. History of coronary artery disease with coronary artery stenting in the past. The patient refused recently cardiac catheterization as a preoperative evaluation. 2. History of cervical cancer with bilateral nephrostomy, status post removal of left nephrostomy tube. 3. New left hydroureter and hydronephrosis. RECOMMENDATIONS: Start aspirin if there is no contraindication from the GI point of view. Continue current Colace, oral Pepcid, and Zoloft as well as normal saline hydration and obtain an echocardiogram. Roel Cabral MD
[2018-01-06] MEDS: HYDROmorphone 1 mg/ml ISec IVP PRN ×3 (01:25→13:27)
[2018-01-06] MEDS: Pantoprazole 20 mg EC Tab PO SCH (06:15)
[2018-01-06 07:42] LABS: ALB/GLOB RATIO 1.1 (1.1-1.8); ALBUMIN 3.3 g/dL (3.0-4.8); CALCIUM 8.7 mg/dL (8.4-10.5)
[2018-01-06 07:54] LABS: BASO # 0.03 K/mm3 (0.0-2.0); BASO % 0.3 % (0.0-3.0); EOS # 0.1 (0.0-0.7); EOS % 1.1 % (1.5-5.0); GRAN # 8.19 (1.4-6.5); GRAN % 86.3 % (50.0-68.0); HEMOGLOBIN 8.2 g/dL (12.0-16.0); LYMPH # 0.5 (1.2-3.4); LYMPH % 5.6 % (22.0-35.0); MEAN CELL VOLUME 93.7 fl (80.0-105.0); MEAN CORPUSCULAR HEMOGLOBIN 28.6 pg (25.0-35.0); MEAN CORPUSCULAR HGB CONC 30.5 g/dl (31.0-37.0); MONO # 0.6 (0.1-0.6); MONO % 6.7 % (1.0-6.0); RBC 2.87 10^6/uL (3.5-6.1); RED CELL DISTRIBUTION WIDTH 14.4 % (11.5-14.5); WHITE BLOOD COUNT 9.5 10^3/ul (4.5-11.0)
--- NOTE | 2018-01-06 09:11 | HP ---
CHIEF COMPLAINT: Patient is being admitted via the Emergency Room after being seen in the ER earlier today six hours prior, was re-seen again with progressively worsening left flank and abdominal pain, for which she had to get intravenous narcotics and after being in the ER for several hours and requiring a couple of doses, the patient was advised admission. HISTORY OF PRESENT ILLNESS: This is in the background history of having had one of the nephrostomy tubes that come out accidentally from the left side as the patient has bilateral nephrostomy tubes, which had been in place and exchanged periodically every three months over the past four years. Patient has a complex medical history, which I will describe right now. She has a diagnosis of stage IIIB carcinoma of the cervix, for which she underwent combined chemoradiation, which is now about 7-1/2 years ago. Patient as a result of the combined effects of the therapy has had late sequelae including radiation cystitis requiring several maneuvers for her radiation cystitis causing hemorrhagic cystitis over the next two years. Patient has had embolization. She has had several cystoscopies and plans for instillation of formalin were entertained, plans for radical cystectomy and pelvic exenteration were entertained, but because of her significant coronary artery disease, these were put on the backburner. Patient has history of coronary artery disease with four coronary artery stents. She is under the supervision of Dr. Oliva and Dr. Peña. In this background history, patient has had several episodes of hematuria requiring both embolization of the artery supplying the urinary bladder and diversion of the urine, which we thought would be the most appropriate thing to do, for which she has had the bilateral nephrostomies. Patient has a internal, external stent on the right side; left nephrostomy, the stent could not be passed because of stricture at the juncture of the ureter and the bladder dome. Patient is on tranexamic acid to reduce the amount of bleeding from the urinary bladder. In addition to this, patient has had several episodes of bleeding from ectasia in the rectum as a result of the radiation therapy in the past, which included external and interstitial radiation therapy and for that, she has had argon laser plasma treatment in the past. More recently, the patient was in the hospital for severe constipation and as a result of this, the constipated stool had caused significant excoriation in the rectum resulting in bleeding, which did not require blood transfusion and improved on conservative management. Patient now after the nephrostomy tube had accidentally come out has been complaining of severe pain in the left back at the place of the nephrostomy radiating anteriorly to the upper abdomen, probably related to developing hydronephrosis. PAST MEDICAL HISTORY: Also significant for Watkins esophagus, prior history of old CVA, hypertension and depression. . ALLERGIES: PATIENT HAS NO KNOWN ALLERGY. HOME MEDICATIONS: Reviewed, they include oxycodone 5/325 every 6 hours p.r.n., Zoloft 25 mg daily, vitamin D 50,000 units once a day, tranexamic acid 650 mg two tablets b.i.d., ascorbic acid one daily, esomeprazole 20 mg daily, Pepcid 20 mg daily, ferrous sulfate one tablet every other day. PHYSICAL EXAMINATION: VITAL SIGNS: Stable. T-max is 98.6, pulse is 105, respirations 18, blood pressure is 126/95, pulse oximetry is 98% on room air. GENERAL: Patient is screaming in pain and telling me that the pain in the left side is radiating from the back anterior to the left upper quadrant, it is on the scale of 9/10. HEENT: Head is normocephalic, atraumatic. Conjunctivae pale. Sclerae is anicteric. Pupils are equally reactive to light and accommodation. Examination of the oropharynx show the tongue to be coated and dry. Patient has poor oral dentition. No oropharyngeal lesions are noted. NECK: Supple. There is no adenopathy. There is no evidence of any meningismus at this time. LUNGS: Clear to percussion and auscultation without any adventitious sounds. HEART: Reveals PMI to be in the fifth intercostal space inside the midclavicular line. S1 and S2 are normal. No gallop or murmur is heard. ABDOMEN: Soft. Patient has tenderness in the suprapubic area. Also, complains of pain in the left upper quadrant. Patient has colostomy bag over the left nephrostomy site with very minimal urine. There is no rebound, rigidity or guarding noted on examination of the abdomen. EXTREMITIES: Upper and lower extremities are normal to inspection and palpation. There is no evidence of cyanosis or edema at this point in time. NEUROLOGIC: Reveals higher functions to be normal. No focal deficits are noted. SKIN: Skin turgor is decreased. No skin lesions are noted. No rashes are noted. PSYCHIATRIC: Patient is awake, alert and oriented. There is normal insight. Patient is complaining of severe pain. ASSESSMENT, NOTES AND PLAN: This is a 67-year-old female with multiple comorbid medical issues admitted for intractable pain on the left side, probably related to displacement and removal of the catheter, which has happened accidentally. CAT scan of the abdomen and pelvis done in the Emergency Room without contrast definitely shows evolving hydronephrosis and hydroureter, which could be the cause for her pain. PLAN: Patient is going to have labs drawn. She is going to get IV fluid. We are going to give her IV narcotics, Dilaudid for relief of pain as the morphine does not appear to have relieved the pain to any significant extent. Plan would be to call Interventional Radiology on Sunday to see if another exchange of catheters can be placed. In the meantime, I have reviewed the terms I have spoken to the patient. We had requested Dr. Hubert Aburto also to see the patient so we can reassess the patient at this time both for either placement of the nephrostomy on the left side or in conjunction with that, would we be able to reassess the patient for cystoscopy and do any internal manipulation that is feasible as she has not had a repeat cystoscopy in more than a year. Case will be discussed with Dr. Aburto as well. As mentioned, CAT scan of the abdomen shows mild increase in the peripelvic and cul-de-sac area with thickening and stranding and mild hyperdense mass like soft tissue thickening in the lumen of the bladder and definitely, hydronephrosis on the left side. Please make a note, this is a complex patient with multiple comorbid medical issues. Time spent with the patient was greater than 80 minutes, out of which more than 50% of the time was spent in [id number] contact, medication, correlating all the information and transmitting all this in order into the computer and communications with the various consultants. Orders for the morning had been requested including serial blood tests. Patient may need an ultrasound. We will await for input from Dr. Aburto as well. In the meantime, we will control the pain with narcotic, make sure the patient is on anticonstipation regimen as she tends to get constipated very easily. Gudelia Ford MD [facility] # [id number]
[2018-01-06] MEDS: TRANEXAMIC ACID 650 MG PO SCH ×2 (10:33→17:25)
[2018-01-06] MEDS: POLYETHYLENE GLYCOL 3350 17 GM/Dose PACKET PO SCH ×2 (10:38→17:25)
[2018-01-06] MEDS ORDERED: Peg-Electrolyte Oral Soln 4L (Golytely) PO ONE (14:18)
--- NOTE | 2018-01-06 16:14 | CP.PCM.CON ---
<Josie Bowen - Last Filed: 01/06/18 16:21> History of Present Illness - History of Present Illness History of Present Illness: PGY5 GI Initial Consult Mrs. Kitchen is a 67 year old female with a past medical history significant for stage III cervical cancer s/p chemo and radiation therapy (five years ago), CKD, bilateral nephrostomy tubes, CAD, OK, psoriasis, and depression who presented with continued abd pain and dislodged left nephrostomy tube. Pt was recently discharged 1 week prior for rectal bleed and a Flex sig revealed a sterocoral ulcer in the rectum. She was advised to follow a bowel regiment at home. She notes taking colace intermittently since discharge and has small BMs daily. Denies any further episodes of rectal bleeding. She denies any other complaints at this time including changes in diet, recent travel, sick contacts, recent illness, fevers, chills, headache, chest pain, SOB, abdominal pain, N/V/C, hematemesis, melena, changes in urine output, or any skin changes. PMH: As stated above PSH: Nephrostomy tube placement, chemo/radiation five years ago Family History: Denies Social History: Denies any tobacco, alcohol or illicit drug use Allergies: NKDA Home Medications: As per [facility]: EGD (10/2017): Watkins's esophagus and chronic gastritis, Flex Sig 0 12/24/17 rectal ulcer Past Patient History - Infectious Disease Hx of Infectious Diseases: None - Tetanus Immunizations Tetanus Immunization: Unknown - Past Medical History & Family History Past Medical History?: Yes - Past Social History Smoking Status: Never Smoked - CARDIAC Hx Cardiac Disorders: Yes Hx Angina: Yes Hx Circulatory Problems: Yes Hx Congestive Heart Failure: Yes Hx Heart Murmur: Yes Hx Hypercholesterolemia: Yes Hx Hypertension: Yes Hx Mitral Valve Prolapse: Yes Hx Pacemaker: No - PULMONARY Hx Respiratory Disorders: Yes Hx Asthma: Yes Hx Sleep Apnea: Yes - NEUROLOGICAL Hx Neurological Disorder: No Hx Dizziness: Yes Hx Transient Ischemic Attacks (TIA): Yes (20yrs ago) - HEENT Hx HEENT Problems: Yes (bad [place], glasses) Other/Comment: left tympanic tubes placed - RENAL Hx Chronic Kidney Disease: Yes Hx Kidney Stones: Yes Hx Renal Failure: Yes Other/Comment: Nephrostomy tubes bilateral, 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 - ENDOCRINE/METABOLIC Hx Endocrine Disorders: No - HEMATOLOGICAL/ONCOLOGICAL Hx Blood Disorders: Yes Hx Anemia: Yes (WITH BLOOD TRANSFUSION) Hx Cancer: Yes (Cervical) Hx Chemotherapy: Yes (and radiation) - INTEGUMENTARY Hx Dermatological Problems: Yes Hx Psoriasis: Yes - MUSCULOSKELETAL/RHEUMATOLOGICAL Hx Falls: No - GASTROINTESTINAL Hx Gastrointestinal Disorders: Yes (GI bleed) Hx Diverticulitis: Yes Hx Gastroesophageal Reflux: Yes Other/Comment: Gerd - GENITOURINARY/GYNECOLOGICAL Hx Genitourinary Disorders: Yes Hx Hematuria: Yes Hx Urinary Tract Infection: Yes Other/Comment: nephrostomy surgery - PSYCHIATRIC Hx Substance Use: No - SURGICAL HISTORY Hx Surgeries: Yes Hx Cardiac Catheterization: Yes Hx Coronary Stent: Yes Hx Hysterectomy: Yes Other/Comment: nephrostomy tubes,CARDIAC STENTS ,HYSTERECTOMY,RIGHT ANKLE FX, - ANESTHESIA Hx Anesthesia Reactions: No Hx Malignant Hyperthermia: No Meds Allergies/Adverse Reactions: Allergies Allergy/AdvReac Type Severity Reaction Status Date / Time No Known Allergies Allergy Verified 01/04/18 14:12 - Medications Medications: Current Medications Docusate Sodium (Colace) 100 mg PO BID [facility] Last Admin: 01/06/18 10:38 Dose: 100 mg Ergocalciferol (Drisdol 50,000 Intl Units Cap) 1 cap PO FRI [facility] Famotidine (Pepcid) 20 mg PO BID [facility] Last Admin: 01/06/18 10:33 Dose: 20 mg Home Med (Home Med) 2 unit PO BID [facility] Last Admin: 01/06/18 10:33 Dose: 2 unit Hydromorphone HCl (Dilaudid) 1 mg IVP Q3 PRN PRN Reason: Pain, severe (8-10) Last Admin: 01/06/18 13:27 Dose: 1 mg Sodium Chloride (Sodium Chloride 0.9%) 1,000 mls @ 100 mls/hr IV .Q10H [facility] Last Admin: 01/05/18 12:00 Dose: Not Given Ondansetron HCl (Zofran Inj) 4 mg IVP Q6H PRN PRN Reason: Nausea/Vomiting Oxycodone/Acetaminophen (Percocet 5/325 Mg Tab) 1 tab PO Q6H PRN PRN Reason: Pain, moderate (4-7) Stop: 01/08/18 09:54 Last Admin: 01/06/18 10:33 Dose: 1 tab Pantoprazole Sodium (Protonix Ec Tab) 20 mg PO 0600 [facility] Last Admin: 01/06/18 06:15 Dose: 20 mg Polyethylene Glycol (Miralax) 17 gm PO BID [facility] Last Admin: 01/06/18 10:38 Dose: 17 gm Sertraline HCl (Zoloft) 25 mg PO QAM [facility] Last Admin: 01/06/18 10:34 Dose: 25 mg Physical Exam - Constitutional Appears: Well, No Acute Distress - Head Exam Head Exam: ATRAUMATIC, NORMOCEPHALIC - Eye Exam Eye Exam: Normal appearance Pupil Exam: NORMAL ACCOMODATION - ENT Exam ENT Exam: Mucous Membranes Moist, Normal Exam - Neck Exam Neck exam: Positive for: Normal Inspection - Respiratory Exam Respiratory Exam: Clear to Auscultation Bilateral, NORMAL BREATHING PATTERN. absent: Rales, Rhonchi, Wheezes, Respiratory Distress - Cardiovascular Exam Cardiovascular Exam: REGULAR RHYTHM, +S1, +S2 - GI/Abdominal Exam GI & Abdominal Exam: Normal Bowel Sounds, Soft. absent: Distended, Firm, Guarding, Hernia, Organomegaly, Rebound, Rigid - Extremities Exam Extremities exam: Negative for: joint swelling, pedal edema - Neurological Exam Neurological exam: Alert, Oriented x3 - Psychiatric Exam Psychiatric exam: Normal Affect, Normal Mood - Skin Skin Exam: Dry, Intact, Normal Color, Warm Results - Vital Signs Recent Vital Signs: Last Vital Signs Temp 99.4 F 01/06/18 06:00 Pulse 97 H 01/06/18 06:00 Resp 18 01/06/18 06:00 BP 119/73 01/06/18 06:00 Pulse Ox 96 01/06/18 06:00 - Labs Result Diagrams: 01/06/18 06:30 01/06/18 06:30 Labs: Laboratory Results - last 24 hr 01/06/18 01/06/18 06:30 06:30 WBC 9.5 D RBC 2.87 L Hgb 8.2 L Hct 26.9 L MCV 93.7 MCH 28.6 MCHC 30.5 L RDW 14.4 Plt Count 290 MPV 9.0 Gran % 86.3 H Lymph % (Auto) 5.6 L [place] % (Auto) 6.7 H Eos % (Auto) 1.1 L Baso % (Auto) 0.3 Gran # 8.19 H Lymph # (Auto) 0.5 L [place] # (Auto) 0.6 Eos # (Auto) 0.1 Baso # (Auto) 0.03 Sodium 134 Potassium 4.7 Chloride 102 Carbon Dioxide 22 Anion Gap 15 BUN 38 H Creatinine 3.0 H Est GFR ( Amer) 19 Est GFR (Non-Af Amer) 16 Random Glucose 94 Calcium 8.7 Total Bilirubin 0.3 AST 27 ALT 23 Alkaline Phosphatase 119 Total Protein 6.4 Albumin 3.3 Globulin 3.1 Albumin/Globulin Ratio 1.1 Assessment & Plan - Assessment and Plan (Free Text) Assessment: 67 year old female with a past medical history significant for stage III cervical cancer s/p chemo and radiation therapy (five years ago), CKD, bilateral nephrostomy tubes, CAD, OK, psoriasis, and depression who presented with abd pain and dislodged nephrostomy tube. CT revealed increased stool burden Abd pain likely 2/2 increased stool burden Chronic Constipation Rectal Ulcer 2/2 chronic constipation CKD Plan: -full liquid diet -recommend golytly 2L for immediate evacuation -daily miralax at home -recommend increasing fiber intake -reviewed CT abd/Pelv, revealed sig stool burden - will continue to follow seen and d/w Dr. Sumner <Harvey Sumner V - Last Filed: 01/06/18 23:25> Meds - Medications Medications: Current Medications Docusate Sodium (Colace) 100 mg PO BID [facility] Last Admin: 01/06/18 17:24 Dose: 100 mg Ergocalciferol (Drisdol 50,000 Intl Units Cap) 1 cap PO FRI [facility] Famotidine (Pepcid) 20 mg PO BID [facility] Last Admin: 01/06/18 17:25 Dose: 20 mg Home Med (Home Med) 2 unit PO BID [facility] Last Admin: 01/06/18 17:25 Dose: 2 unit Hydromorphone HCl (Dilaudid) 1 mg IVP Q3 PRN PRN Reason: Pain, severe (8-10) Last Admin: 01/06/18 13:27 Dose: 1 mg Sodium Chloride (Sodium Chloride 0.9%) 1,000 mls @ 60 mls/hr IV .[id number] [facility] Last Admin: 01/06/18 17:55 Dose: 60 mls/hr Ondansetron HCl (Zofran Inj) 4 mg IVP Q6H PRN PRN Reason: Nausea/Vomiting Last Admin: 01/06/18 17:00 Dose: 4 mg Oxycodone/Acetaminophen (Percocet 5/325 Mg Tab) 1 tab PO Q6H PRN PRN Reason: Pain, moderate (4-7) Stop: 01/08/18 09:54 Last Admin: 01/06/18 10:33 Dose: 1 tab Pantoprazole Sodium (Protonix Ec Tab) 20 mg PO 0600 [facility] Last Admin: 01/06/18 06:15 Dose: 20 mg Polyethylene Glycol (Miralax) 17 gm PO BID [facility] Last Admin: 01/06/18 17:25 Dose: 17 gm Sertraline HCl (Zoloft) 25 mg PO QAM [facility] Last Admin: 01/06/18 10:34 Dose: 25 mg Results - Vital Signs Recent Vital Signs: Last Vital Signs Temp 98.5 F 01/06/18 16:47 Pulse 98 H 01/06/18 16:47 Resp 19 01/06/18 16:47 BP 148/85 01/06/18 16:47 Pulse Ox 97 01/06/18 16:47 - Labs Result Diagrams: 01/06/18 06:30 01/06/18 06:30 Labs: Laboratory Results - last 24 hr 01/06/18 01/06/18 06:30 06:30 WBC 9.5 D RBC 2.87 L Hgb 8.2 L Hct 26.9 L MCV 93.7 MCH 28.6 MCHC 30.5 L RDW 14.4 Plt Count 290 MPV 9.0 Gran % 86.3 H Lymph % (Auto) 5.6 L [place] % (Auto) 6.7 H Eos % (Auto) 1.1 L Baso % (Auto) 0.3 Gran # 8.19 H Lymph # (Auto) 0.5 L [place] # (Auto) 0.6 Eos # (Auto) 0.1 Baso # (Auto) 0.03 Sodium 134 Potassium 4.7 Chloride 102 Carbon Dioxide 22 Anion Gap 15 BUN 38 H Creatinine 3.0 H Est GFR ( Amer) 19 Est GFR (Non-Af Amer) 16 Random Glucose 94 Calcium 8.7 Total Bilirubin 0.3 AST 27 ALT 23 Alkaline Phosphatase 119 Total Protein 6.4 Albumin 3.3 Globulin 3.1 Albumin/Globulin Ratio 1.1 Attending/Attestation - Attestation I have personally seen and examined this patient.: Yes I have fully participated in the care of the patient.: Yes I have reviewed all pertinent clinical information: Yes Notes (Text): This is an addendum to GI consult report dictated by the GI Fellow.The patient was seen and examined earlier. Medical records, lab studies, imagings were reviewed. Last 24 hours events reviewed. Agreed with the above treatment plan as outlined in GI Fellow 's notes with the addition of the following The patient was recently in the hospital with lower GI bleeding Flexsig showed large stercoral ulceration The recently CT reviewed showed a large amount of stool in the colon Would need bowl clearance Ordered half a gallon of Golytely to be given patient was clearly told about the large amount of stool present proximally in the proximal colon 01/06/18 23:24
[2018-01-06] MEDS ORDERED: Sodium Chloride 0.9% 1,000 ML IV SCH (17:53)
--- NOTE | 2018-01-06 19:37 | PN ---
DATE: 01/06/2018 SUBJECTIVE: Patient denies any chest pain. She is experiencing left flank pain. PHYSICAL EXAMINATION: VITAL SIGNS: Blood pressure 119/73, heart rate 97, temperature 99.4, respirations 18. HEENT: Pale conjunctivae. CHEST: Clear. HEART: S1 and S2, regular. EXTREMITIES: No edema. LABORATORY DATA: Today's hemoglobin and hematocrit 8.2 and 26.9, white count and platelet count are within normal limits. Today's SMA-7, sodium 134, potassium 4.7, chloride 102, CO2 22, glucose 94, BUN 38, creatinine 3. ASSESSMENT: 1. History of coronary artery disease status post coronary artery stenting in the past. 2. History of cervical cancer with bilateral nephrostomy nephrostomy tube. 3. New left hydroureter and hydronephrosis. 4. Acute renal insufficiency. RECOMMENDATIONS: Continue current oxycodone one tablet every 6 hours p.r.n. for moderate pain. Continue current Colace, IV Dilaudid, and oral Pepcid. The patient will be evaluated by Dr. Aburto, her urologist. Roel Cabral MD
[2018-01-07] MEDS: HYDROmorphone 1 mg/ml ISec IVP PRN (00:10)
--- NOTE | 2018-01-07 03:05 | PN ---
DATE: 01/06/2018 ONCOLOGY PROGRESS NOTE LOCATION: Patient is in room 369, bed 2. PROBLEM: This is a 67-year-old female with multiple comorbid medical issues, admitted to the hospital with worsening and intractable left flank pain and left upper quadrant abdominal pain secondary to her nephrostomy tube having been accidentally pulled out, which is on the left side. 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 The patient has been in continuous remission since then, but has had series of complications as a result of the treatment. 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 She has a history of coronary artery stents, 5 of them, which is being monitored and supervised by Dr. Oliva. She has a history of old CVA many years ago, even before the diagnosis of her carcinoma. The patient is also status post embolization of the artery that is supplying the urinary bladder to minimize the bleeding. She is also on the medication called tranexamic acid 650 mg twice a day to minimize the amount of bleeding. We have kept her out of the hospital. She was requiring blood transfusions almost every week; and on the combination of the medicines she is currently on, the patient has not had to get any blood transfusion for several months now. The patient was recently in the hospital related to constipation, and she had GI bleeding. At that time, she had a sigmoidoscopy, which showed stercoral ulcers in the colon related to the constipation without any new findings of any pathology. The patient got better with the anti-constipation protocol and she was discharged at that time, and she is now admitted with the aforementioned complaints. The patient's CAT scan in the ER showed minimal hydronephrosis and developing hydroureter on the left side. More recently, between yesterday and today, the patient's creatinine jumped at to 3, which is of concern to us. The patient was seen by the urologist this morning, who felt that the nephrostomy may have to be reinserted by IR, which is Dr. Bruce Black. The patient has been scheduled for that procedure early in the morning, which is 01/07/2018. Subjectively, the patient has been still requiring IV narcotics and she has had 3 doses since this morning. She has been getting the Dilaudid 1 mg approximately every 4 hours as needed. On top of that, she has been getting . The patient has been experiencing mostly left flank pain. The left nephrostomy site has a colostomy bag there with very minimal urine coming out of that opening. PHYSICAL EXAMINATION: VITAL SIGNS: Stable. Blood pressure is 119/73, heart rate is 97, T-max is 98.4, respirations 18. HEENT: Head is normocephalic, atraumatic. Conjunctivae pale. Pupils are equally reactive to light and accommodation. Examination of the oropharynx reveals no oropharyngeal lesions. LUNGS: Clear to percussion and auscultation. HEART: Reveals PMI to be in the fifth intercostal space inside the midclavicular line. S1 and S2 are normal. No gallop or murmur is heard. ABDOMEN: Mildly distended, complaining of left flank and left upper quadrant pain. No definite masses. No rebound, rigidity or guarding. EXTREMITIES: Reveal no cyanosis, clubbing, or edema. The patient tells me that she is constipated and I told her to definitely take GoLYTELY for the constipation on top of the other medicines she is on. The patient admits to having had some bowel movement early this morning. LABORATORY DATA: Today shows hemoglobin of 8.2; hematocrit 26.9, which dropped from the admission lab of 10 and unchanged. Chemistries reveal BUN of 38 and creatinine of 3. Sodium is 134, K is 4.7, chloride is 102. CO2 is 22. ASSESSMENT NOTES AND PLAN: New onset renal dysfunction, acute kidney injury, probably related to the nephrostomy tube having come out from the left side, which may be contributing to some degree of the kidney function. History of stage III B carcinoma of the cervix, status post chemoradiation, currently in remission with bilateral nephrostomies. Anemia and drop in the hemoglobin related to multiplicity of factors, new left-sided ureter and left hydronephrosis. Significant coronary artery disease with multiple stents. Acute renal insufficiency. PLAN: The patient is going to be seen by IR in a.m. I have requested Renal, Dr. Boggs, also to see the patient. I have told the patient get the IV and keep it at 60 mL an hour, and the patient is going to take GoLYTELY to help to move her bowel because she is still constipated. We will try to make further decision as far as the kidney issues are concerned based on the chemistries tomorrow morning. The patient will be assessed and evaluated by Nephrology as well. Time spent with the patient is greater than 80 minutes, out of which more than 50% of the time was spent in explaining to the patient as to what tests need to be done, as to reach out to IR as well to coordinate and set up the placement of the nephrostomy tubes as well. This is a complex patient with multiple comorbid medical issues. Gudelia Ford MD
[2018-01-07] MEDS: Pantoprazole 20 mg EC Tab PO SCH (05:05)
--- NOTE | 2018-01-07 07:19 | CP.PCM.PN ---
Subjective - Date & Time of Evaluation Date of Evaluation: 01/07/18 Time of Evaluation: 06:20 - Subjective Subjective: Awake, no distress, denies chest pain Reason for consultation and follow up:Cardiac evaluation of coronary artery disease post stents, history of cervical cancer Seen and examined by me and Dr. Oliva Objective - Vital Signs/Intake and Output Vital Signs (last 24 hours): Temp Pulse Resp BP Pulse Ox 98.5 F 98 H 19 148/85 97 01/06/18 16:47 01/06/18 16:47 01/06/18 16:47 01/06/18 16:47 01/06/18 16:47 - Medications Medications: Current Medications Docusate Sodium (Colace) 100 mg PO BID [facility] Last Admin: 01/06/18 17:24 Dose: 100 mg Ergocalciferol (Drisdol 50,000 Intl Units Cap) 1 cap PO FRI [facility] Famotidine (Pepcid) 20 mg PO BID [facility] Last Admin: 01/06/18 17:25 Dose: 20 mg Home Med (Home Med) 2 unit PO BID [facility] Last Admin: 01/06/18 17:25 Dose: 2 unit Hydromorphone HCl (Dilaudid) 1 mg IVP Q3 PRN PRN Reason: Pain, severe (8-10) Last Admin: 01/07/18 00:10 Dose: 1 mg Sodium Chloride (Sodium Chloride 0.9%) 1,000 mls @ 60 mls/hr IV .[id number] [facility] Last Admin: 01/06/18 17:55 Dose: 60 mls/hr Ondansetron HCl (Zofran Inj) 4 mg IVP Q6H PRN PRN Reason: Nausea/Vomiting Last Admin: 01/06/18 17:00 Dose: 4 mg Oxycodone/Acetaminophen (Percocet 5/325 Mg Tab) 1 tab PO Q6H PRN PRN Reason: Pain, moderate (4-7) Stop: 01/08/18 09:54 Last Admin: 01/06/18 10:33 Dose: 1 tab Pantoprazole Sodium (Protonix Ec Tab) 20 mg PO 0600 [facility] Last Admin: 01/07/18 05:05 Dose: 20 mg Polyethylene Glycol (Miralax) 17 gm PO BID [facility] Last Admin: 01/06/18 17:25 Dose: 17 gm [facility]raline [facility] ([facility]ft) [facility] [place] Admin: 01/06/18 10:34 Dose: 25 mg - Labs Labs: 01/06/18 06:30 01/06/18 06:30 - Constitutional Appears: Non-toxic, No Acute Distress - Eye Exam Eye Exam: Normal appearance - ENT Exam ENT Exam: Mucous Membranes Moist, Normal Exam - Respiratory Exam Respiratory Exam: Decreased Breath Sounds, Clear to Ausculation Bilateral, NORMAL BREATHING PATTERN - Cardiovascular Exam Cardiovascular Exam: REGULAR RHYTHM, +S1, +S2 - GI/Abdominal Exam GI & Abdominal Exam: Soft, Normal Bowel Sounds - Exam Additional comments: bilateral nephrostomy tube, lower abdominal pain - Extremities Exam Extremities Exam: Full ROM, Normal Capillary Refill - Back Exam Back Exam: Full ROM, NORMAL INSPECTION - Neurological Exam Neurological Exam: Alert, Awake, Oriented x3 - Psychiatric Exam Psychiatric exam: Normal Affect, Normal Mood - Skin Skin Exam: Dry, Normal Color, Warm Assessment and Plan - Assessment and Plan (Free Text) Assessment: A 67 year old female who came in to the ER due to worsening lower abdominal pain.History of coronary artery disease with stents,stage 3 B carcinoma of the cervix, chronic renal dysfunction, bilateral nephrostomy tubes, rectal ectasia, Watkins's esophagus, CVA, and urinary bladder bleeding s/p radiating cystitis,she accidentally pulled out her left nephrostomy tube and now complaining of pain. Consult was called to follow up cardiac status. Patient for possible IR procedure today to readjust left nephrostomy tube. Will order Echo to evaluate LV function. Plan: Echo today to evaluate LV function For possible IR procedure to reinsert/adjust left nephrostomy tube Denies chest pain,denies shortness of breath Heart rate and blood pressure stable Continue current treatment Continue current medications Will follow up Plan and treatment discussed with Dr. Oliva
[2018-01-07 08:57] LABS: HEMOGLOBIN 8.3 g/dL (12.0-16.0); MEAN CELL VOLUME 91.8 fl (80.0-105.0); MEAN CORPUSCULAR HEMOGLOBIN 28.5 pg (25.0-35.0); MEAN CORPUSCULAR HGB CONC 31.1 g/dl (31.0-37.0); MEAN PLATELET VOLUME 8.3 fl (7.0-11.0); RBC 2.91 10^6/uL (3.5-6.1); RED CELL DISTRIBUTION WIDTH 14.1 % (11.5-14.5); WHITE BLOOD COUNT 6.6 10^3/ul (4.5-11.0)
[2018-01-07 09:11] LABS: ALB/GLOB RATIO 0.9 (1.1-1.8); ALBUMIN 3.3 g/dL (3.0-4.8); CALCIUM 8.7 mg/dL (8.4-10.5)
--- NOTE | 2018-01-07 09:14 | CP.PCM.PN ---
<Roland Moura - Last Filed: 01/07/18 14:53> Subjective - Date & Time of Evaluation Date of Evaluation: 01/07/18 Time of Evaluation: 09:10 - Subjective Subjective: Emmanuel Moura PGY2 IM Resident - GI Progress Note for Dr. Sumner Patient seen and examined this AM. Patient noted to be walking around room per nursing. She reports abdominal discomfort. Objective - Vital Signs/Intake and Output Vital Signs (last 24 hours): Temp Pulse Resp BP Pulse Ox 98.5 F 98 H 19 148/85 97 01/06/18 16:47 01/06/18 16:47 01/06/18 16:47 01/06/18 16:47 01/06/18 16:47 - Medications Medications: Current Medications Docusate Sodium (Colace) 100 mg PO BID [facility] Last Admin: 01/06/18 17:24 Dose: 100 mg Ergocalciferol (Drisdol 50,000 Intl Units Cap) 1 cap PO FRI [place] Famotidine (Pepcid) 20 mg PO BID [facility] Last Admin: 01/06/18 17:25 Dose: 20 mg Home Med (Home Med) 2 unit PO BID [facility] Last Admin: 01/06/18 17:25 Dose: 2 unit Hydromorphone HCl (Dilaudid) 1 mg IVP Q3 PRN PRN Reason: Pain, severe (8-10) Last Admin: 01/07/18 00:10 Dose: 1 mg Sodium Chloride (Sodium Chloride 0.9%) 1,000 mls @ 60 mls/hr IV .[id number] [facility] Last Admin: 01/06/18 17:55 Dose: 60 mls/hr Ondansetron HCl (Zofran Inj) 4 mg IVP Q6H PRN PRN Reason: Nausea/Vomiting Last Admin: 01/06/18 17:00 Dose: 4 mg Oxycodone/Acetaminophen (Percocet 5/325 Mg Tab) 1 tab PO Q6H PRN PRN Reason: Pain, moderate (4-7) Stop: 01/08/18 09:54 Last Admin: 01/06/18 10:33 Dose: 1 tab Pantoprazole Sodium (Protonix Ec Tab) 20 mg PO 0600 [facility] Last Admin: 01/07/18 05:05 Dose: 20 mg Polyethylene Glycol (Miralax) 17 gm PO BID [facility] Last Admin: 01/06/18 17:25 Dose: 17 gm Sertraline HCl (Zoloft) 25 mg PO QAM [facility] Last Admin: 01/06/18 10:34 Dose: 25 mg - Labs Labs: 01/07/18 08:30 01/06/18 06:30 - Constitutional Appears: No Acute Distress - Head Exam Head Exam: ATRAUMATIC, NORMAL INSPECTION, NORMOCEPHALIC - Eye Exam Eye Exam: EOMI, PERRL - ENT Exam ENT Exam: Mucous Membranes Moist - Neck Exam Neck Exam: Full ROM - Respiratory Exam Respiratory Exam: Clear to Ausculation Bilateral, NORMAL BREATHING PATTERN - Cardiovascular Exam Cardiovascular Exam: REGULAR RHYTHM, +S1, +S2 - GI/Abdominal Exam GI & Abdominal Exam: Soft, Normal Bowel Sounds - Extremities Exam Extremities Exam: Full ROM - Neurological Exam Neurological Exam: Alert, Awake, Oriented x3 - Psychiatric Exam Psychiatric exam: Normal Affect, Normal Mood - Skin Skin Exam: Dry, Intact Assessment and Plan - Assessment and Plan (Free Text) Assessment: 67 year old female with past medical history of stage II cervical cancer s/p chemo and radiation therapy in 2012, CKD, bilateral nephrostomy tubes, CAD, [place], psoriasis, hx of Watkins's esophagus, chronic gastritis who presented with abdominal pain likely secondary to constipation Plan: Abdominal Pain likely secondary to constipation Hx of Barrets esophagus Hx of Chronic Gastritis Rectal ulcer 2/2 chronic constipation - constipation on admission - Miralax and golytely yesterday, bmx3 past 24 hours - Continue full liquid diet as tolerated - increase fiber intake upon discharge - Further recommendations per Dr. Sumner <Harvey Sumner V - Last Filed: 01/07/18 22:56> Objective - Vital Signs/Intake and Output Vital Signs (last 24 hours): Temp Pulse Resp BP Pulse Ox 98.2 F 98 H 20 152/96 H 96 01/07/18 18:00 01/07/18 18:00 01/07/18 18:00 01/07/18 18:00 01/07/18 18:00 Intake and Output: 01/07/18 01/08/18 18:59 06:59 Intake Total 840 Output Total 70 Balance 770 - Medications Medications: Current Medications Docusate Sodium (Colace) 100 mg PO BID [facility] Last Admin: 01/06/18 17:24 Dose: 100 mg Ergocalciferol (Drisdol 50,000 Intl Units Cap) 1 cap PO FRI [facility] Famotidine (Pepcid) 20 mg PO BID [facility] Last Admin: 01/06/18 17:25 Dose: 20 mg Home Med (Home Med) 2 unit PO BID [facility] Last Admin: 01/06/18 17:25 Dose: 2 unit Hydromorphone HCl (Dilaudid) 1 mg IVP Q3 PRN PRN Reason: Pain, severe (8-10) Last Admin: 01/07/18 00:10 Dose: 1 mg Sodium Chloride (Sodium Chloride 0.9%) 1,000 mls @ 60 mls/hr IV .[id number] [facility] Last Admin: 01/06/18 17:55 Dose: 60 mls/hr Ondansetron HCl (Zofran Inj) 4 mg IVP Q6H PRN PRN Reason: Nausea/Vomiting Last Admin: 01/06/18 17:00 Dose: 4 mg Oxycodone/Acetaminophen (Percocet 5/325 Mg Tab) 1 tab PO Q6H PRN PRN Reason: Pain, moderate (4-7) Stop: 01/08/18 09:54 Last Admin: 01/06/18 10:33 Dose: 1 tab Pantoprazole Sodium (Protonix Ec Tab) 20 mg PO 0600 [facility] Last Admin: 01/07/18 05:05 Dose: 20 mg Polyethylene Glycol (Miralax) 17 gm PO BID [facility] Last Admin: 01/06/18 17:25 Dose: 17 gm Polyethylene Glycol/Electrolytes (Golytely) 2,000 ml PO ONCE ONE Stop: 01/08/18 06:01 Sertraline HCl (Zoloft) 25 mg PO QAM [facility] Last Admin: 01/06/18 10:34 Dose: 25 mg - Labs Labs: 01/07/18 08:30 01/07/18 08:30 Attending/Attestation - Attestation I have personally seen and examined this patient.: Yes I have fully participated in the care of the patient.: Yes I have reviewed all pertinent clinical information, including history, physical exam and plan: Yes Notes (Text): This is an addendum to GI followup report dictated by the Anthropology Lecturer. The patient was seen and evaluated earlier. Medical records, lab studies, imagings were reviewed. Last 24 hours events reviewed. Agreed with the above treatment plan as outlined in Anthropology Lecturer 's notes with the addition of the following Patient took nearly half a gallon of Golytely Patient had a good bowl movement yesterday Status post nephrostomy tube placement today On examination abdomen soft no tenderness Encouraged patient to have another half a gallon of Golytely Patient had large stercoral ulceration Colonoscopy attempted colonoscopy was aborted last admission due to large amount of stool in the rectum and stercoral ulceration 01/07/18 22:53
[2018-01-07] MEDS ORDERED: Iodixanol 320 MG/ML 100 ML BOTTLE IV ONE (14:07)
[2018-01-07] MEDS ORDERED: Iodixanol 320 MG/ML 200 ML BOTTLE IV ONE (14:07)
[2018-01-07] MEDS ORDERED: Lidocaine 2% PF (10 ml) Amp ONE (14:07)
[2018-01-07] MEDS ORDERED: Midazolam 2 MG/2 ML VIAL ONE ×2 (15:30→16:24)
--- NOTE | 2018-01-07 16:25 | PN ---
DATE: 01/07/2018 REASON FOR THE CONSULTATION: Cardiac evaluation, coronary artery disease, stent, history of cervical cancer, accidentally pulled the nephrostomy tube. The patient denies any chest pain, shortness of breath or any palpitation. This note is an addendum to initial progress note dictated by the nurse practitioner, Velvet Mcqueen. Going to IR for replacing of that nephrostomy tube. We will get echo to assess LV function. Further recommendations depending on the hospital course. The patient is a mild to moderate risk for interventional procedure, low risk procedure. No evidence of angina, congestive heart failure or arrhythmia. Monitor electrolytes. Monitor renal function. Since the potassium is 3.8, but creatinine is 3.2, we will wait the creatinine improved. Follow up blood workup in the morning. Hopefully, after the nephrostomy, renal function will improve. We will follow with you. We will repeat the blood workup in the morning. Thank you, Dr. Saldivar for providing us the opportunity in taking care of the patient, Glenna Kitchen. Debby Oliva MD
--- NOTE | 2018-01-07 16:49 | US ---
Date of service: 01/07/2018 PROCEDURE: Ultrasound of the Kidneys HISTORY: hydronephrosis L kidney COMPARISON: 06/27/2016 renal ultrasound. 01/05/2018 CT abdomen and pelvis. Summary of findings on the comparison examination: Status post removal of left nephrostomy catheter. New left hydronephrosis and hydroureter.. TECHNIQUE: Sonogram of the kidneys. FINDINGS: RIGHT KIDNEY: Measures: 4 x 3.8 x 7.1 cm. Atrophic right kidney Nephrostomy catheter in satisfactory position No stone, solid mass lesion or hydronephrosis visualized. LEFT KIDNEY: Measures: 6.4 x 6.7 x 9.8 cm. Confirmation of hydronephrosis identified on the recent CT scan. OTHER FINDINGS: None. IMPRESSION: Atrophic right kidney. Moderate hydronephrosis left kidney. No new findings otherwise detected
[2018-01-07 18:27] VITALS: RESP 20; O2SAT 96
--- NOTE | 2018-01-07 20:01 | VASCULAR ---
PROCEDURE: 1. Replace left nephrostomy tube 2. Change right nephrostomy tube HISTORY: Hemorrhagic radiation cystitis. Chronic bilateral nephrostomy tubes. Left tube fell out. Both tubes need to be changed. PHYSICIAN(S): Bruce Black MD. TECHNIQUE: The relative risks and indications of the procedure were explained to the patient and consent obtained. The patient was placed prone on the arteriogram table and the back prepped and draped usual sterile fashion. Conscious sedation monitoring were provided throughout the procedure by a nurse. A small dilator was placed in the left sinus tract. A small amount of contrast was injected which tract into the left renal pelvis. A 0.035 glidewire was advanced into the left renal pelvis. Sequential dilatation was performed with subsequent placement of a new 12 Lao pigtail left nephrostomy tube. Contrast was injected and a left nephrostogram performed. Contrast was injected via the right nephrostomy tube in for osteo gram performed. A 0.035 glidewire was coiled in the right renal pelvis. The old tube was removed. A new 12 Lao right nephrostomy tube was placed. The tube was flushed and secured. The patient tolerated the procedure well. IMPRESSION: 1.Successful replacement of the dislodged left nephrostomy tube. A new 12 Lao nephrostomy tube was placed the left. 2. Successful change of the right nephrostomy tube. A new 12 Lao nephrostomy tube was placed.
--- NOTE | 2018-01-07 21:48 | CARD ---
APPROVED REPORT Date of service: 01/07/2018 EXAM: Two-dimensional and M-mode echocardiogram with Doppler and color Doppler. INDICATION Cardiac Disease: CAD 2D DIMENSIONS Left Atrium (2D)4.8 (1.6-4.0cm)IVSd1.0 (0.7-1.1cm) LVDd4.8 (3.9-5.9cm)PWd1.1 (0.7-1.1cm) LVDs3.4 (2.5-4.0cm)FS (%) 29.7 % LVEF (%)56.8 (>50%) M-Mode DIMENSIONS Aortic Root3.10 (2.2-3.7cm)Aortic Cusp Exc.1.60 (1.5-2.0cm) Aortic Valve AoV Peak Nvscgbwu677.0cm/sAoV VTI36.7cmAO Peak GR.13mmHg LVOT Peak Affpcfdt865.0cm/sLVOT VTI26.20cmAO Mean GR.8mmHg Mitral Valve MV E Ztryqzzb599.0cm/sMV A Llcnrxue118.0cm/sE/A ratio1.1 TDI Lateral E' Peak V12.10cm/sMedial E' Peak V7.31cm/sE/Lateral E'9.5 E/Medial E'15.7 Pulmonary Valve PV Peak Rqeapnax79.1cm/sPV Peak Grad.3mmHg Tricuspid Valve TR Peak Tavdakcf233gi/sRAP JKCATTRR02nrWpMO Peak Gr.29mmHg [id number] LEFT VENTRICLE The left ventricle is normal size. There is normal left ventricular wall thickness. The left ventricular function is normal. The left ventricular ejection fraction is within the normal range. There is normal LV segmental wall motion. Transmitral Doppler flow pattern is Grade I-abnormal relaxation pattern. There is no ventricular septal defect visualized. There is no left ventricular aneurysm. RIGHT VENTRICLE The right ventricle is normal size. There is normal right ventricular wall thickness. The right ventricular systolic function is normal. ATRIA The left atrium is moderately dilated. The right atrium is mildly dilated. AORTIC VALVE The aortic valve is moderately thickened. No aortic regurgitation is present. There is no aortic valvular stenosis. MITRAL VALVE The mitral valve is moderately thickened. Mitral regurgitation is moderate. The mitral regurgitant jet is eccentrically directed. TRICUSPID VALVE The tricuspid valve is normal in structure. There is no tricuspid valve regurgitation noted. There is mild tricuspid regurgitation. There is mild pulmonary hypertension. PULMONIC VALVE The pulmonary valve is normal in structure. There is mild pulmonic valvular regurgitation. GREAT VESSELS The aortic root is normal in size. The IVC is normal in size and collapses >50% with inspiration. <Conclusion> There is normal left ventricular wall thickness. The left ventricular function is normal. The left ventricular ejection fraction is within the normal range. There is normal LV segmental wall motion. Transmitral Doppler flow pattern is Grade I-abnormal relaxation pattern. Mitral regurgitation is moderate. The mitral regurgitant jet is eccentrically directed. There is no tricuspid valve regurgitation noted. There is mild tricuspid regurgitation. There is mild pulmonary hypertension.
--- NOTE | 2018-01-08 03:15 | CON ---
DATE: 01/07/2018 UROLOGY CONSULTATION REASON FOR CONSULTATION: Management of nephrostomy tube that fell out. HISTORY OF PRESENT ILLNESS: Ms. Kitchen is a lady who is very pleasant, not perfectly compliant lady, whom I only see in the hospital. She never comes to the office. She has bilateral nephrostomy tubes and she has obstructing lesion. We had previously tried to put stents in. Meanwhile, she was being managed by Dr. Bruce Black who has been changing the catheter. She is in today because her nephrostomy tube fell out on left side. Urology is consulted. At this point, it is unclear exactly, but it is definitely more than 24 hours since it had fallen out. Urology was consulted for further recommendations. See our plans as below. PAST MEDICAL AND SURGICAL HISTORY: As listed, patient sees Dr. Ford and under the care of Dr. Saldivar. REVIEW OF SYSTEMS: As listed above. SOCIAL HISTORY: She is . She cares herself. Otherwise, unremarkable. MEDICATIONS: See the chart. ALLERGIES: SEE THE CHART. PHYSICAL EXAMINATION: GENERAL: A well-developed female, in no apparent distress. Currently resting comfortably in the bed. ABDOMEN: Relatively soft. The right side has a nephrostomy tube in. I believe it is atrophic. On the left side, there actually is urine in a pouch that connected her back, but looking at the hole, it is not easy we had to put nephrostomy tube in at this point. See the plan listed below. Remainder of the exam is otherwise is unremarkable. LABORATORY DATA: See chart. BUN and creatinine are noted. DIAGNOSIS: Hydronephrosis. Patient with nephrostomy tube, that has now dislodged. ASSESSMENT AND PLAN: The patient presented on 01/05/2018. At that time, I spoke to the emergency room and I explained at that time that it is unlikely that we were able to get nephrostomy tubes back in. I talked to the nurses during the course of the day as well, but during the admission, I spoke to Dr. Marin, the emergency room doctor, and I explained that most likely the patient need the nephrostomy tube reinserted that I will check all records, but we were not able to get a stent in from below and I think either they tried to get one from above to pass the wire down. There is some kind of distal ureteral obstruction. I need to check further record, but either way, the patient has been managed with the nephrostomy tube. Therefore, we would recommend again. In this situation, I am also comfortable to do this. I discussed the options. The patient could be discharged home and arranged for an outpatient treatment reliable and Dr. Black has been reliable to change her nephrostomy tube, so this could be done as outpatient. Patient may remain in the hospital that is up to the medical team and Dr. Black. Urology recommendation is to consult Interventional Radiology (I will mention that Dr. Marin said that he was reaching out to Dr. Black) and from Urology standpoint, I will just monitor the BUN and creatinine. Right now, she is stable. I think she will need reinsertion of nephrostomy tube. Then, further plans will follow. We can always reevaluate whether we can get a wire down and change the stents. The patient has been fairly stable and that she has not seen in quite some time. So the plans for now as follow: 1. Monitor the patient's BUN, creatinine, labs, potassium, etc. 2. Reconsult Interventional Radiology and then further plans to follow. Hubert Aburto MD
--- NOTE | 2018-01-08 03:45 | CON ---
DATE: 01/07/2018 REASON FOR CONSULTATION: Acute kidney injury superimposed on chronic kidney disease stage 3/4. HISTORY OF PRESENTING ILLNESS: A 67-year-old lady with history of stage IIIB carcinoma of the cervix, bilateral hydronephrosis, bilateral nephrostomy tubes, chronic kidney disease stage 3/4, anemia, hypertension, CAD, PTCA and stents, recurrent hematuria. The patient presented to the emergency room on 01/05/2018 with complaints of left flank pain. The patient reported that the left nephrostomy tube was accidentally removed. The patient denies any fever. She denies any chills. She denies any dysuria. She does have a right nephrostomy tube, which produces small amounts of urine only. In the emergency room, she had a CAT scan, which showed severe left hydronephrosis, which is new. She also had a renal ultrasound done, which showed that the right kidney is 7.1 cm and is atrophic with nephrostomy in place, left kidney is 9.8 cm and shows hydronephrosis. Also, she was found to have elevated creatinine, her creatinine was 1.9 at the time of admission, it eunice to 3 yesterday and the creatinine is 3.2 today. PAST MEDICAL AND SURGICAL HISTORY: As mentioned above, CA of cervix stage IIIB, bilateral hydronephrosis, atrophic right kidney, bilateral nephrostomies, recurrent hematuria, rectal bleeding, chronic anemia, GERD. FAMILY HISTORY: Noncontributory. SOCIAL HISTORY: No smoking, no alcohol use, no IV drug abuse. ALLERGIES: NO KNOWN DRUG ALLERGIES. MEDICATIONS AT HOME: Tranexamic acid, Zoloft, MiraLax, oxycodones, Feosol, Pepcid, vitamin D. REVIEW OF SYSTEMS: All systems are reviewed, pertinent positives as mentioned in the history of presenting illness, rest unremarkable. PHYSICAL EXAMINATION: GENERAL: Elderly lady, lying in bed. VITAL SIGNS: Blood pressure 163/91, heart rate 91, respiratory rate 19, temperature 98.1. HEENT: Normocephalic, atraumatic, positive pallor. NECK: Supple, no JVD. LUNGS: Bilateral equal entry, bilaterally equal expansion, no rales. CARDIAC: S1 and S2, regular rate and rhythm, no murmur, no rub. ABDOMEN: Obese, distended, soft, nontender, positive right nephrostomy with a bag with minimal amount of urine. Left side temporary colostomy bag put over nephrostomy site. Leakage of urine. LABORATORY DATA: WBC 6.6, hemoglobin 8.3, hematocrit 26.7, platelets 245. Sodium 140, potassium 3.8, chloride 102, CO2 of 26, BUN 38, creatinine 3.2, glucose 97, calcium 8.7, AST 50, ALT 19, albumin 3.3. Urinalysis: Yellow, slightly cloudy, pH 6.5, specific gravity 1.015, protein 100, blood moderate, leukocyte esterase large. Urine culture: Klebsiella and Enterococcus faecalis. ASSESSMENT: 1. Accidental removal of left nephrostomy tube. 2. Left hydronephrosis. 3. Klebsiella urinary tract infection. 4. Acute kidney injury superimposed on chronic kidney disease stage 3. 5. Chronic anemia. 6. Cancer of cervix stage IIIB. PLAN: 1. Needs urgent replacement of nephrostomy tube. 2. Antibiotics for UTI. 3. Dose all antibiotics for creatinine clearance 10-30 mL/minute. 4. Monitor daily labs. 5. Check iron stores. Obdulia Boggs MD
--- NOTE | 2018-01-08 05:09 | PN ---
DATE: 01/07/2018 LOCATION: Patient is in room 369, bed 2. PROBLEM: This is a 67-year-old female with stage III-B carcinoma of the cervix and bilateral nephrostomy catheters, who was admitted over the weekend after one of the catheters on the left side had fallen off accidentally and the patient was admitted with increasing left upper quadrant pain, was noted to have increasing hydronephrosis and hydroureter on the left side with also rise in BUN and creatinine; creatinine had gone up from 1.7 to 3.2. The patient is being assessed for reinsertion of the left nephrostomy. In conjunction with this, the patient is also being followed and assessed by Renal service as well. The patient had another ultrasound of the kidney done today, which shows worsening hydronephrosis and hydroureter on the left side consistent with increasing pain. The patient is set up for the left nephrostomy exchange on the left side and also exchange of the catheter on the nephrostomy on the right side as well. SUBJECTIVE: The patient is examined in the room. She is noted walking around the room, complaining of abdominal discomfort for which she is getting IV narcotics as well. PHYSICAL EXAMINATION: VITAL SIGNS: Stable. T-max is 98.4, pulse of 98, respirations 18, blood pressure is 148/85, pulse ox is 97% on room air. HEENT: The patient is examined in the bed. Head is normocephalic, atraumatic. Conjunctivae pale. Sclerae is anicteric. Pupils are equally reactive to light and accommodation. Examination of the oropharynx reveals no oropharyngeal lesions. NECK: Supple. There is no adenopathy. The patient has poor dentition. LUNGS: Clear to percussion and auscultation. CARDIOVASCULAR SYSTEM: Reveals PMI to be in the fifth intercostal space inside the midclavicular line. S1 and S2 are normal. No gallop or murmur is heard. ABDOMEN: Mildly distended, complaining of left upper quadrant pain and the pain appears to be coming from the left kidney angle on the left side posteriorly radiating anteriorly. The patient has a colostomy over the nephrostomy site on the left side, which is draining very minimal urine. EXTREMITIES: Reveals full range of motion without any cyanosis, clubbing, or edema. NEUROLOGIC: Higher functions to be normal. No focal deficits are noted. SKIN: Dry. No skin lesions are noted. GENITOURINARY AND RECTAL: Deferred at this time. MEDICATIONS: The patient's medications are reviewed, they are unchanged. LABORATORY DATA: From today reveals a white count of 6.6, hemoglobin 8.3, hematocrit 26.7, platelet count 245. Sodium is 140, K is 3.8, chloride is 102. CO2 is 26. BUN is 38 with creatinine of 3.2. Blood sugar is 97. ASSESSMENT, NOTES AND PLAN: The patient has worsening kidney failure with slipped left nephrostomy tube. The patient is going for replacement of both nephrostomy catheters today. She is on intravenous fluids. The patient is being seen by Renal. The patient had been seen by GI for management of her constipation with the anti-constipation protocol. Cardiology is on board to make sure the patient any problems during the exchange of the nephrostomies under conscious sedation. Labs have been requested for a.m. Nephrology is also following the patient to make sure the kidney functions are getting improving before planning on discharge at this point in time. The patient is expected to have postobstructive diuresis. We will monitor the lytes very carefully over the next 48 hours. Routine post-examination instructions have been given to the patient. Labs for a.m. have been requested. Gudelia Ford MD
[2018-01-08] MEDS: Pantoprazole 20 mg EC Tab PO SCH (05:38)
[2018-01-08] MEDS ORDERED: Peg-Electrolyte Oral Soln 4L (Golytely) PO ONE (06:00)
[2018-01-08] MEDS: HYDROmorphone 1 mg/ml ISec IVP PRN ×2 (06:21→13:46)
--- NOTE | 2018-01-08 06:47 | CP.PCM.PN ---
Subjective - Date & Time of Evaluation Date of Evaluation: 01/08/18 Time of Evaluation: 06:20 - Subjective Subjective: Awake, no distress, denies chest pain Reason for consultation and follow up:Cardiac evaluation of coronary artery disease post stents, history of cervical cancer Seen and examined by me and Dr. Oliva Objective - Vital Signs/Intake and Output Vital Signs (last 24 hours): Temp Pulse Resp BP Pulse Ox 98.2 F 98 H 20 152/96 H 96 01/07/18 18:00 01/07/18 18:00 01/07/18 18:00 01/07/18 18:00 01/07/18 18:00 Intake and Output: 01/07/18 01/08/18 18:59 06:59 Intake Total 840 Output Total 70 Balance 770 - Medications Medications: Current Medications Docusate Sodium (Colace) 100 mg PO BID [facility] Last Admin: 01/06/18 17:24 Dose: 100 mg Ergocalciferol (Drisdol 50,000 Intl Units Cap) 1 cap PO [facility] Famotidine (Pepcid) 20 mg PO BID [facility] Last Admin: 01/06/18 17:25 Dose: 20 mg Home Med (Home Med) 2 unit PO BID [facility] Last Admin: 01/06/18 17:25 Dose: 2 unit Hydromorphone HCl (Dilaudid) 1 mg IVP Q3 PRN PRN Reason: Pain, severe (8-10) Last Admin: 01/08/18 06:21 Dose: 1 mg Sodium Chloride (Sodium Chloride 0.9%) 1,000 mls @ 60 mls/hr IV .[id number] [facility] Last Admin: 01/06/18 17:55 Dose: 60 mls/hr Ondansetron HCl (Zofran Inj) 4 mg IVP Q6H PRN PRN Reason: Nausea/Vomiting Last Admin: 01/06/18 17:00 Dose: 4 mg Oxycodone/Acetaminophen (Percocet 5/325 Mg Tab) 1 tab PO Q6H PRN PRN Reason: Pain, moderate (4-7) Stop: 01/08/18 09:54 Last Admin: 01/06/18 10:33 Dose: 1 tab Pantoprazole Sodium (Protonix Ec Tab) 20 mg PO 0600 [facility] Last Admin: 01/08/18 05:38 Dose: 20 mg Polyethylene Glycol (Miralax) 17 gm PO BID [facility] Last Admin: 01/06/18 17:25 Dose: 17 gm Sertraline HCl (Zoloft) 25 mg PO QAM [facility] Last Admin: 01/06/18 10:34 Dose: 25 mg - Labs Labs: 01/07/18 08:30 01/07/18 08:30 - Constitutional Appears: Non-toxic, No Acute Distress - Head Exam Head Exam: NORMAL INSPECTION, NORMOCEPHALIC - Eye Exam Eye Exam: Normal appearance - ENT Exam ENT Exam: Mucous Membranes Dry - Neck Exam Neck Exam: Normal Inspection - Respiratory Exam Respiratory Exam: Decreased Breath Sounds, Clear to Ausculation Bilateral, NORMAL BREATHING PATTERN - Cardiovascular Exam Cardiovascular Exam: +S1, +S2 - GI/Abdominal Exam GI & Abdominal Exam: Soft, Normal Bowel Sounds - Exam Additional comments: bilateral nephrostomy tubes - Extremities Exam Extremities Exam: Normal Capillary Refill - Neurological Exam Neurological Exam: Alert, Awake, Oriented x3 - Psychiatric Exam Psychiatric exam: Normal Affect, Normal Mood - Skin Skin Exam: Dry, Warm Assessment and Plan - Assessment and Plan (Free Text) Assessment: A 67 year old female who came in to the ER due to worsening lower abdominal pain.History of coronary artery disease with stents,stage 3 B carcinoma of the cervix, chronic renal dysfunction, bilateral nephrostomy tubes, rectal ectasia, Watkins's esophagus, CVA, and urinary bladder bleeding s/p radiating cystitis,she accidentally pulled out her left nephrostomy tube and now complaining of pain. Consult was called to follow up cardiac status. Patient for possible IR procedure today to readjust left nephrostomy tube. Echo done-Normal LV wall motion, moderate MR, mild TR, mild pulmonary hypertension,LVEF 56%. Status post change of left and right nephrostomy tube (IR procedure). For colonoscopy today. Plan: Post IR procedure-changed of right and left nephrostomy tube For colonoscopy today -taking golytely. Denies chest pain,denies shortness of breath Heart rate and blood pressure stable Cardiac status stable Continue current treatment Continue current medications Chart reviewed Will follow up Plan and treatment discussed with Dr. Oliva
[2018-01-08 07:21] LABS: BASO # 0.01 K/mm3 (0.0-2.0); BASO % 0.2 % (0.0-3.0); EOS # 0.2 (0.0-0.7); EOS % 3.6 % (1.5-5.0); GRAN # 4.48 (1.4-6.5); GRAN % 76.5 % (50.0-68.0); HEMOGLOBIN 8.6 g/dL (12.0-16.0); LYMPH # 0.7 (1.2-3.4); LYMPH % 12.3 % (22.0-35.0); MEAN CELL VOLUME 91.2 fl (80.0-105.0); MEAN CORPUSCULAR HEMOGLOBIN 28.1 pg (25.0-35.0); MEAN CORPUSCULAR HGB CONC 30.8 g/dl (31.0-37.0); MONO # 0.4 (0.1-0.6); MONO % 7.4 % (1.0-6.0); RBC 3.06 10^6/uL (3.5-6.1); RED CELL DISTRIBUTION WIDTH 14.2 % (11.5-14.5); WHITE BLOOD COUNT 5.9 10^3/ul (4.5-11.0)
[2018-01-08 07:35] LABS: IRON 33 ug/dL (45-180)
[2018-01-08 07:46] LABS: % IRON SATURATION 14 % (20-55); ALB/GLOB RATIO 0.9 (1.1-1.8); ALBUMIN 3.4 g/dL (3.0-4.8); TOTAL IRON BINDING CAPACITY 238 ug/dL (265-497)
[2018-01-08 08:07] VITALS: BP 158/96; PULSE 96; TEMP 97.5
[2018-01-08] MEDS: POLYETHYLENE GLYCOL 3350 17 GM/Dose PACKET PO SCH (10:02)
[2018-01-08] MEDS: TRANEXAMIC ACID 650 MG PO SCH (10:05)
--- NOTE | 2018-01-08 10:07 | CP.PCM.PN ---
Subjective - Date & Time of Evaluation Date of Evaluation: 01/08/18 Time of Evaluation: 11:45 - Subjective Subjective: Topher Amato PGY2 Heme/Onc Progress Note for Dr. Ford Patient was seen and examined at bedside. The patient states that she has had multiple BMs overnight. She also states that there is pain associated with her nephrostomy tubes. Yesterday the patient underwent successful replacement of bilateral nephrostomy tubes. Dr. Ford had a discussion with Dr. Boggs (nephrology) who recommended another day of observation due to patient still being in ANGELLA and requiring monitoring of her I/O's. Objective - Vital Signs/Intake and Output Vital Signs (last 24 hours): Temp Pulse Resp BP Pulse Ox 97.5 F L 96 H 20 158/96 H 96 01/08/18 08:07 01/08/18 08:07 01/08/18 08:07 01/08/18 08:07 01/08/18 08:07 - Medications Medications: Current Medications Docusate Sodium (Colace) 100 mg PO BID [facility] Last Admin: 01/06/18 17:24 Dose: 100 mg Ergocalciferol (Drisdol 50,000 Intl Units Cap) 1 cap PO FRI [facility] Famotidine (Pepcid) 20 mg PO BID [facility] Last Admin: 01/06/18 17:25 Dose: 20 mg Home Med (Home Med) 2 unit PO BID [facility] Last Admin: 01/06/18 17:25 Dose: 2 unit Hydromorphone HCl (Dilaudid) 1 mg IVP Q3 PRN PRN Reason: Pain, severe (8-10) Last Admin: 01/08/18 06:21 Dose: 1 mg Sodium Chloride (Sodium Chloride 0.9%) 1,000 mls @ 60 mls/hr IV .[id number] [facility] Last Admin: 01/06/18 17:55 Dose: 60 mls/hr Ondansetron HCl (Zofran Inj) 4 mg IVP Q6H PRN PRN Reason: Nausea/Vomiting Last Admin: 01/06/18 17:00 Dose: 4 mg Pantoprazole Sodium (Protonix Ec Tab) 20 mg PO 0600 [facility] Last Admin: 01/08/18 05:38 Dose: 20 mg Polyethylene Glycol (Miralax) 17 gm PO BID [facility] Last Admin: 01/06/18 17:25 Dose: 17 gm Sertraline HCl (Zoloft) 25 mg PO QAM [facility] Last Admin: 01/06/18 10:34 Dose: 25 mg - Labs Labs: 01/08/18 06:30 01/08/18 06:30 - Constitutional Appears: Well, Non-toxic, No Acute Distress - Head Exam Head Exam: NORMAL INSPECTION - Eye Exam Eye Exam: Normal appearance - ENT Exam ENT Exam: Mucous Membranes Moist - Neck Exam Neck Exam: Normal Inspection - Respiratory Exam Respiratory Exam: NORMAL BREATHING PATTERN - Cardiovascular Exam Cardiovascular Exam: RRR, +S1, +S2 - GI/Abdominal Exam GI & Abdominal Exam: Soft. absent: Distended, Tenderness - Extremities Exam Extremities Exam: Full ROM - Back Exam Additional comments: b/l nephrostomy tubes dressings c/d/i - Neurological Exam Neurological Exam: Alert, Awake, Oriented x3 - Psychiatric Exam Psychiatric exam: Normal Mood - Skin Skin Exam: Normal Color Assessment and Plan - Assessment and Plan (Free Text) Assessment: 67 year old female with a past medical history significant for stage III cervical cancer s/p chemo and radiation therapy (five years ago), CKD, bilateral nephrostomy tubes, CAD, [place], psoriasis, and depression who presented with continued abd pain and dislodged left nephrostomy tube. Nephrostomy tubes have both been replaced and ANGELLA is improving. She is having BM's and GI is recommending flex sig. Patient should not be discharged for another day to monitor renal and bowel function. Plan: Relistor ordered (per pharmacy, due to ANGELLA, dose is 6mg q other day) GI following for constipation and stercoral ulceration Nephrology following for ANGELLA Cathflo ordered for port use Strict I/O to monitor for postobstructive diuresis Continue Colace, Miralax for constipation Restart regular diet Dilaudid for pain PTX for GI prophylaxis Further recs per Dr. Ford Case was reviewed and discussed with attending, Dr. Liliana Amato PGY2
[2018-01-08 12:23] LABS: FERRITIN 78.8 ng/mL
--- NOTE | 2018-01-08 13:30 | CP.PCM.PN ---
<Roland Moura - Last Filed: 01/08/18 13:27> Subjective - Date & Time of Evaluation Date of Evaluation: 01/08/18 Time of Evaluation: 08:00 - Subjective Subjective: Emmanuel Moura PGY2 IM Resident - GI progress note for Dr. Sumner Patient seen and examined this AM. Patient reports she is unable to tolerate the bowel prep. Stating she took a single sip and vomited. Patient refusing bowel prep at this time. Denies abdominal pain, chest pain, shortess of breath, diarrhea, constipation. She does indicated bm. Objective - Vital Signs/Intake and Output Vital Signs (last 24 hours): Temp Pulse Resp BP Pulse Ox 97.5 F L 96 H 20 158/96 H 96 01/08/18 08:07 01/08/18 08:07 01/08/18 08:07 01/08/18 08:07 01/08/18 08:07 - Medications Medications: Current Medications Docusate Sodium (Colace) 100 mg PO BID [facility] Last Admin: 01/08/18 10:01 Dose: Not Given Ergocalciferol (Drisdol 50,000 Intl Units Cap) 1 cap PO FRI [facility] Famotidine (Pepcid) 20 mg PO BID [facility] Last Admin: 01/08/18 10:06 Dose: 20 mg Home Med (Home Med) 2 unit PO BID [facility] Last Admin: 01/08/18 10:05 Dose: 2 unit Hydromorphone HCl (Dilaudid) 1 mg IVP Q3 PRN PRN Reason: Pain, severe (8-10) Last Admin: 01/08/18 06:21 Dose: 1 mg Sodium Chloride (Sodium Chloride 0.9%) 1,000 mls @ 60 mls/hr IV .[id number] [facility] Last Admin: 01/06/18 17:55 Dose: 60 mls/hr Ondansetron HCl (Zofran Inj) 4 mg IVP Q6H PRN PRN Reason: Nausea/Vomiting Last Admin: 01/06/18 17:00 Dose: 4 mg Pantoprazole Sodium (Protonix Ec Tab) 20 mg PO 0600 [facility] Last Admin: 01/08/18 05:38 Dose: 20 mg Polyethylene Glycol (Miralax) 17 gm PO BID [facility] Last Admin: 01/08/18 10:02 Dose: Not Given Sertraline HCl (Zoloft) 25 mg PO QAM [facility] Last Admin: 01/08/18 10:06 Dose: 25 mg - Labs Labs: 01/08/18 06:30 01/08/18 06:30 - Constitutional Appears: No Acute Distress - Head Exam Head Exam: ATRAUMATIC, NORMAL INSPECTION, NORMOCEPHALIC - Eye Exam Eye Exam: EOMI, PERRL - ENT Exam ENT Exam: Mucous Membranes Moist - Respiratory Exam Respiratory Exam: Clear to Ausculation Bilateral, NORMAL BREATHING PATTERN - Cardiovascular Exam Cardiovascular Exam: REGULAR RHYTHM, +S1, +S2 - GI/Abdominal Exam GI & Abdominal Exam: Soft, Normal Bowel Sounds. absent: Tenderness - Extremities Exam Extremities Exam: Full ROM. absent: Pedal Edema - Neurological Exam Neurological Exam: Alert, Awake, Oriented x3 Neuro motor strength exam: Left Upper Extremity: 5, Right Upper Extremity: 5, Left Lower Extremity: 5, Right Lower Extremity: 5 - Psychiatric Exam Psychiatric exam: Normal Affect, Normal Mood - Skin Skin Exam: Dry, Warm Assessment and Plan - Assessment and Plan (Free Text) Assessment: 67 year old female with past medical history of stage II cervical cancer s/p chemo and radiation therapy in 2012, CKD, bilateral nephrostomy tubes, CAD, [place], psoriasis, hx of Watkins's esophagus, chronic gastritis who presented with abdominal pain likely secondary to constipation Plan: Abdominal Pain likely secondary to constipation Hx of Barrets esophagus Hx of Chronic Gastritis Rectal ulcer 2/2 chronic constipation - Patient with large stercoral ulceration - constipation on admission - Miralax and golytely yesterday, golytely prep partially completed - Reports of multiple bm - Continue full liquid diet as tolerated - Avoid enema for constipation - increase fiber intake upon discharge - Patient flex sig postponed today - Further recommendations per Dr. Sumner <Harvey Sumner V - Last Filed: 01/09/18 00:45> Objective - Vital Signs/Intake and Output Vital Signs (last 24 hours): Temp Pulse Resp BP Pulse Ox 97.5 F L 96 H 20 158/96 H 96 01/08/18 08:07 01/08/18 08:07 01/08/18 08:07 01/08/18 08:07 01/08/18 08:07 - Labs Labs: 01/08/18 06:30 01/08/18 06:30 Attending/Attestation - Attestation I have personally seen and examined this patient.: Yes I have fully participated in the care of the patient.: Yes I have reviewed all pertinent clinical information, including history, physical exam and plan: Yes Notes (Text): This is an addendum to GI followup report dictated by the Employment Manager. The patient was seen and evaluated earlier. Medical records, lab studies, imagings were reviewed. Last 24 hours events reviewed. Agreed with the above treatment plan as outlined in Employment Manager 's notes with the addition of the following Patient refuses to drink golytely bowl prep Patient has large stercoral ulceration Importance of laxative and regular bowl movements explained Discussed with Dr. Ford Recommended outpatient colon/flexsig 01/09/18 00:43
--- NOTE | 2018-01-08 13:46 | PN ---
DATE: 01/08/2018 REASON FOR CONSULTATION: Cardiac evaluation, history of coronary artery disease, status post stent, cervical cancer, status post nephrostomy tube placed, going for colonoscopy, preop evaluation clearance, risk stratification. SUBJECTIVE: The patient denies any chest pain, shortness of breath or any palpitation. This note is an addendum in addition to the initial progress note dictated by our nurse practitioner. The patient is asymptomatic. No chest pain. No shortness of breath. Status post nephrostomy tube. BUN and creatinine started coming down after nephrostomy tube. Yesterday, creatinine was 3.2, today is 2.6. The patient is going for a colonoscopy. No evidence of chest pain. No evidence of arrhythmia. No evidence of congestive heart failure. The patient is cleared to go for colonoscopy with moderate risk secondary to underlying condition, underlying comorbidity. No absolute contraindication for colonoscopy. We will follow with you. Monitor H and H. Consider transfusing blood with hemoglobin goes below 8. Thank you, Dr. De Guzman/Dr. Ford for providing us the opportunity in taking care of the patient, Glenna Kitchen. Debby Oliva MD
--- NOTE | 2018-01-09 18:57 | PN ---
DATE: 01/08/2018 SUBJECTIVE: The patient is seen lying in bed. She wants to go home. She complains of some abdominal pain. She had the left nephrostomy tube reinserted yesterday. PHYSICAL EXAMINATION: GENERAL: Elderly lady lying in bed. VITAL SIGNS: Blood pressure 158/96, heart rate 96, respiratory rate 20, temperature 97.5. HEENT: Normocephalic, atraumatic, positive pallor. NECK: Supple, no JVD. LUNGS: Bilateral equal air entry, bilateral equal expansion. CARDIAC: S1 and S2, regular rate and rhythm, no murmur, no rub. ABDOMEN: Obese, distended, soft, nontender, bowel sounds present. Left nephrostomy bag full of clear urine. Right nephrostomy bag has some scanty blood-tinged urine. INTAKE AND OUTPUT: 840/70. LABORATORY DATA: WBC 5.9, hemoglobin 8.6, hematocrit 27.9, platelets 320. Sodium 141, potassium 4.2, chloride 103, CO2 of 29, BUN 31, creatinine 2.6, glucose 118, calcium 9, phosphorus 3.7, magnesium 2. Iron saturation 14, iron 33, ferritin 78. MEDICATIONS: List reviewed. ASSESSMENT: 1. Acute kidney injury superimposed on chronic kidney disease stage 3/4. 2. Obstructive uropathy, dislodged left nephrostomy tube with left hydronephrosis, status post replacement of left nephrostomy tube yesterday. 3. Severe anemia. 4. Recurrent internal bleeding. PLAN: 1. Monitor urine output closely. 2. Monitor creatinine. 3. Hope to see creatinine reverted to baseline of around 1.7 to 1.8. 4. Consider iron infusion. Obdulia Boggs MD
[2018-01-11] MEDS ORDERED: Ergocalciferol 50,000 Intl Units Cap PO SCH (10:00)
== END 2018-01-08 17:10 | disposition left against medical advice (07) | DRG 699 ==
LOC: ED 00:53 → ERH 05:10 → 3RNO 06:39 → OBSVTOIN 01-07 16:33
PROVIDERS: ADMIT Family Medicine; ATTEND Family Medicine
PROC: 0T25X0Z Change Drainage Device in Kidney, External Approach (ICD-10-PCS; principal; 2018-01-07)
PROC: 0T25X0Z Change Drainage Device in Kidney, External Approach (ICD-10-PCS; 2018-01-07)
DX: T83.022A Displacement of nephrostomy catheter, initial encounter (principal); N13.6 Pyonephrosis; N17.9 Acute kidney failure, unspecified; K62.6 Ulcer of anus and rectum; I12.9 Hypertensive chronic kidney disease with stage 1 through stage 4 chronic kidney disease, or unspecified chronic kidney disease; N18.3 Chronic kidney disease, stage 3 (moderate); B96.1 Klebsiella pneumoniae [K. pneumoniae] as the cause of diseases classified elsewhere; I25.10 Atherosclerotic heart disease of native coronary artery without angina pectoris; K59.09 Other constipation; D64.9 Anemia, unspecified; L40.9 Psoriasis, unspecified; K22.70 Barrett's esophagus without dysplasia; K21.9 Gastro-esophageal reflux disease without esophagitis; K29.50 Unspecified chronic gastritis without bleeding; I27.20 Pulmonary hypertension, unspecified; N26.1 Atrophy of kidney (terminal); F32.9 Major depressive disorder, single episode, unspecified; I34.1 Nonrheumatic mitral (valve) prolapse; Y83.3 Surgical operation with formation of external stoma as the cause of abnormal reaction of the patient, or of later complication, without mention of misadventure at the time of the procedure; Z85.41 Personal history of malignant neoplasm of cervix uteri; Z86.73 Personal history of transient ischemic attack (TIA), and cerebral infarction without residual deficits; Z92.21 Personal history of antineoplastic chemotherapy; Z92.3 Personal history of irradiation; Z95.5 Presence of coronary angioplasty implant and graft; Z90.710 Acquired absence of both cervix and uterus

== ENCOUNTER 2018-03-29 10:13 | Day surgery (SDC) | payer MEDICARE, OTHER ==
[2018-03-28 08:17] VITALS: BMI 24.2
[2018-03-29 11:00] LABS: BASO # 0.03 K/mm3 (0.0-2.0); BASO % 0.6 % (0.0-3.0); EOS # 0.1 (0.0-0.7); EOS % 2.3 % (1.5-5.0); GRAN # 3.61 (1.4-6.5); GRAN % 74.1 % (50.0-68.0); HEMOGLOBIN 10.7 g/dL (12.0-16.0); LYMPH # 0.8 (1.2-3.4); LYMPH % 16.2 % (22.0-35.0); MEAN CELL VOLUME 93.2 fl (80.0-105.0); MEAN CORPUSCULAR HEMOGLOBIN 29.2 pg (25.0-35.0); MEAN CORPUSCULAR HGB CONC 31.3 g/dl (31.0-37.0); MEAN PLATELET VOLUME 9.2 fl (7.0-11.0); MONO # 0.3 (0.1-0.6); MONO % 6.8 % (1.0-6.0); RBC 3.67 10^6/uL (3.5-6.1); RED CELL DISTRIBUTION WIDTH 14.5 % (11.5-14.5); WHITE BLOOD COUNT 4.9 10^3/uL (4.5-11.0)
[2018-03-29 11:09] LABS: CALCIUM 9.5 mg/dL (8.4-10.5); INR 1.02; PARTIAL THROMBOPLASTIN TIME 31.7 Seconds (25.1-36.5); PROTHROMBIN TIME 11.7 SECONDS (9.4-12.5)
[2018-03-29] MEDS ORDERED: Midazolam 2 MG/2 ML VIAL ONE (12:03)
[2018-03-29] MEDS ORDERED: Lidocaine 1% Inj (20ml) ONE (12:04)
[2018-03-29] MEDS ORDERED: Midazolam 2 MG/2 ML VIAL IVP ONE (12:45)
[2018-03-29] MEDS ORDERED: Oxycodone/Acetaminophen 5/325 mg Tab PO PRN (12:56)
[2018-03-29] MEDS ORDERED: Sodium Chloride 0.45% 1,000 ML IV SCH (13:00)
[2018-03-29 14:03] VITALS: BP 125/88; PULSE 81; RESP 20; TEMP 98.2; O2SAT 94
--- NOTE | 2018-03-29 15:06 | RAD ---
Date of service: 03/29/2018 HISTORY: rt lung bx COMPARISON: 08/02/2017 FINDINGS: LUNGS: No active pulmonary disease. PLEURA: No significant pleural effusion identified, no pneumothorax apparent. CARDIOVASCULAR: No aortic atherosclerotic calcification present. Normal cardiac size. No pulmonary vascular congestion. OSSEOUS STRUCTURES: No significant abnormalities. VISUALIZED UPPER ABDOMEN: Normal. OTHER FINDINGS: Left-sided PICC line terminates at the junction of the SVC and right atrium IMPRESSION: No active disease.
--- NOTE | 2018-03-29 15:41 | CT ---
PROCEDURE: CT guided right chest biopsy HISTORY: Right hilar and superior mediastinal mass. History cervical CA. Evaluate for 2nd malignancy PHYSICIAN(S): Bruce Black MD. TECHNIQUE: The relative risks and indications of the procedure were explained to the patient and consent obtained. The patient was placed supine on the CT scanner and preliminary images through the upper chest obtained. Conscious sedation and monitoring were provided throughout the procedure by a nurse. There is a 4 x 6 cm mass encasing the right mainstem bronchus and extending superiorly to involve the SVC.. A right parasternal approach was selected and the area prepped and draped in the usual sterile fashion. 1% Xylocaine was used to anesthetize the skin and soft tissues. A 17-gauge guiding needle was advanced into the right superior mediastinal mass. Its position was confirmed with CT. Using coaxial technique, multiple core biopsies were obtained. Specimens were sent for histology and flow cytometry. The postprocedure images show no evidence of large pneumothorax or significant hemorrhage.. IMPRESSION: 1. CT-guided right superior mediastinal biopsy as described above. Specimens were sent for histology and flow cytometry.
== END 2018-03-29 15:30 | disposition home or self-care (01) ==
LOC: SDS 10:13
PROVIDERS: ATTEND Radiology Vascular & Interventional Radiology
DX: C78.01 Secondary malignant neoplasm of right lung (principal); C78.1 Secondary malignant neoplasm of mediastinum; C53.9 Malignant neoplasm of cervix uteri, unspecified
CPT/HCPCS: 32405; 36415; 71045; 77012; 80048; 85025; 85610; 85730; 88305; 99152; J2250; J2405; J3010; J7030

== ENCOUNTER 2018-04-12 17:17 | Inpatient (IN) | payer MEDICARE, OTHER ==
[2018-04-12] MEDS ORDERED: Albuterol 0.083% Inhal Sol (2.5 mg/3 mL) UD INH STA (18:58)
--- NOTE | 2018-04-12 18:59 | ED PDOC ---
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 Patient reports it is becoming painful for her to swallow and is experiencing cough and wheezing. Patient states she has two urinary bags and her right bag contains blood in the urine. Patient denies any fever, chills, shortness of breath, chest pain, diarrhea, nausea, vomiting, back pain, neck pain, headache, dizziness, or any other complaints. PMD: Dr. Ford Time/Duration: Other (a few days) Symptom Onset: Gradual Symptom Course: Unchanged Activities at Onset: Light Context: Home Past Medical History - Provider Review Nursing Documentation Reviewed: Yes - Infectious Disease Hx of Infectious Diseases: None - Tetanus Immunization Tetanus Immunization: Unknown - Cardiac Hx Pacemaker: No - Pulmonary Hx Respiratory Disorders: Yes Hx Asthma: Yes Hx Sleep Apnea: Yes - Neurological Hx Paralysis: No - HEENT Hx HEENT Disorder: Yes ([place], glasses) Other/Comment: left tympanic tubes placed - Renal Hx Renal Disorder: Yes Hx Kidney Stones: Yes Hx Renal Failure: Yes Other/Comment: Nephrostomy tubes bilateral, 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 - Endocrine/Metabolic Hx Endocrine Disorders: No - Hematological/Oncological Hx Blood Transfusions: Yes (01/2018) Hx Blood Transfusion Reaction: No - Integumentary Hx Dermatological Disorder: Yes Hx Psoriasis: Yes - Musculoskeletal/Rheumatological Hx Musculoskeletal Disorders: Yes (R WRIST FX R/T FALL 06/2015) - Gastrointestinal Hx Gastrointestinal Disorders: Yes (GI bleed) Hx Diverticulitis: Yes Hx Gastroesophageal Reflux: Yes Other/Comment: Gerd - Genitourinary/Gynecological Hx Genitourinary Disorders: Yes Hx Hematuria: Yes Hx Urinary Tract Infection: Yes Other/Comment: nephrostomy surgery - Psychiatric Hx Emotional Abuse: No Hx Physical Abuse: No Hx Substance Use: No - Surgical History Hx Cardiac Catheterization: Yes Hx Coronary Stent: Yes Hx Hysterectomy: Yes Other/Comment: nephrostomy tubes,CARDIAC STENTS ,HYSTERECTOMY,RIGHT ANKLE FX, - Anesthesia Hx Anesthesia: Yes Hx Anesthesia Reactions: Yes (NAUSEA) Hx Malignant Hyperthermia: No - Suicidal Assessment Feels Threatened In Home Enviroment: No Family/Social History - Physician Review Nursing Documentation Reviewed: Yes Family/Social History: No Known Family HX Smoking Status: Never Smoked Hx Alcohol Use: No Hx Substance Use: No Hx Substance Use Treatment: No Allergies/Home Meds Allergies/Adverse Reactions: Allergies No Known Allergies Allergy (Verified 01/04/18 14:12) Home Medications: Home Meds Medication Instructions Recorded Confirmed Oxycodone HCl/Acetaminophen 1 tab PO Q6H PRN 02/12/15 03/29/18 [Percocet 5-325 mg Tablet] Sertraline [Zoloft] 25 mg PO QAM 04/06/15 03/29/18 Ergocalciferol (Vitamin D2) 50,000 iu PO FRI 11/08/15 03/29/18 [Vitamin D2] Tranexamic Acid [Lysteda] 2 tab PO BID 11/08/15 03/29/18 Ascorbic Acid [Vitamin C] 1 tab PO DAILY 12/12/16 03/29/18 Esomeprazole Magnesium [Nexium] 20 mg PO DAILY 10/23/17 03/29/18 Famotidine [Pepcid] 20 mg PO DAILY 12/23/17 03/29/18 Promethazine HCl/Codeine 1 tsp PO Q6H PRN 03/28/18 03/29/18 [Prometh-Codein 6.25-10 mg/5 ml] Vitamin E 1,000 unit PO DAILY 03/28/18 03/29/18 Review of Systems - Physician Review All systems were reviewed & negative as marked: Yes - Review of Systems Constitutional: absent: Fevers, Night Sweats ENT: Other (throat pain) Respiratory: Cough, Wheezing. absent: SOB Cardiovascular: absent: Chest Pain Gastrointestinal: absent: Diarrhea, Nausea, Vomiting Genitourinary Female: Hematuria Musculoskeletal: absent: Back Pain, Neck Pain Neurological: absent: Headache, Dizziness Physical Exam - Physical Exam Narrative Physical Exam (Text): 04/12/18 19:05 Gen: VS reviewed, alert, well developed, well nourished, nontoxic, mild distress. ENT: normal pharynx. Eye: EOMI, PERRL. Neck: no JVD, supple, no adenopathy. CV: regular rate, regular rhythm, no rubs, no murmur, no gallops, S1, S2, pulses equal and strong. Pulm: bilateral expliratory wheezing. Abd: soft, nontender, no guarding, no rebound, no rigidity, normal bowel sounds. Pelvis: nephrostomy tube skin site is clean with redness. Blood is present in the right sided collection tube. Ext: no edema. Skin: good color, no rash, no cyanosis. Psych: responds appropriately to questions, normal affect. Neuro: oriented x 3, CN2-12 intact grossly, motor intact, sensation intact. Vital Signs Reviewed: Yes Vital Signs Temp Pulse Resp BP Pulse Ox 04/12/18 17:18 98.1 F 92 H 18 145/91 H 97 Temperature: Afebrile Blood Pressure: Hypertensive Pulse: Tachycardic Respiratory Rate: Normal Medical Decision Making ED Course and Treatment: 04/12/18 19:08 Impression: 67 year old female presenting with throat pain and bleeding in urine. Plan: -- VBG -- CT of Abdomen and Pelvis -- CT of Neck,Chest with contrast -- EKG -- CBC -- Chest X-ray -- Albuterol -- Decadron injection -- Blood culture -- Reassess and disposition Prior Visits: Notes and results from previous visits were reviewed. Progress Notes: 04/12/18 20:50 patient seen for multiple complaints including bloody urine from right nephrostomy bag without pain, fever or chills. patient also reports sire throat and uri symptoms with noted wheezing on lung exam. patient was treated with neb tx and decadron. will get CT of the neck to rule out tracheal tumor, will get Ct of the chest to rule out pulm infiltrate. patient en route to CT. on repeat exam patient appears comfortable, no respiratory distress, repeat lung exam there is sig improvement in previously noted wheezing. will continue to monitor. the plan at this time is to admit to the hospital. i have palced a call to pcp but as of this time have not received a call back. 04/12/18 21:07 multiple phone calls have been made to dr. díaz service, no call back, direct contact information would not be revealed by the service. 04/12/18 21:08 case discussed with medical technologist hematology for admission - EKG Interpretation EKG Interpretation (Text): 04/12/18 20:08 1908: nsr at 89 bpm, nml qrs, nml axis, no acute sttw abn Interpreted by ED Physician: Yes - Scribe Statement The provider has reviewed the documentation as recorded by the Garyibe Rebekah Marley All medical record entries made by the Scribe were at my direction and personally dictated by me. I have reviewed the chart and agree that the record accurately reflects my personal performance of the history, physical exam, medical decision making, and the department course for this patient. I have also personally directed, reviewed, and agree with the discharge instructions and disposition. Disposition/Present on Arrival - Present on Arrival Any Indicators Present on Arrival: No History of DVT/PE: No History of Uncontrolled Diabetes: No Urinary Catheter: Yes History of Decub. Ulcer: No History Surgical Site Infection Following: None - Disposition Have Diagnosis and Disposition been Completed?: Yes Diagnosis: Hematuria Disposition: HOSPITALIZED Disposition Time: 21:04 Patient Plan: Admission Patient Problems: Current Active Problems Problem Status Onset Hematuria Acute Condition: FAIR Referrals: Gudelia Ford MD [Primary Care Provider] - Follow up with primary Forms: [employer] (Bengali)
[2018-04-12 20:18] LABS: VENOUS BLOOD GAS BASE EXCESS 2.4 mmol/L (0.0-2.0); VENOUS BLOOD GAS PO2 33 mm/Hg (30-55); VENOUS BLOOD PH 7.31 (7.32-7.43)
[2018-04-12 20:24] LABS: BASO # 0.02 K/mm3 (0.0-2.0); BASO % 0.4 % (0.0-3.0); EOS # 0.2 (0.0-0.7); EOS % 3.4 % (1.5-5.0); GRAN # 3.97 (1.4-6.5); GRAN % 74.1 % (50.0-68.0); HEMOGLOBIN 10.4 g/dL (12.0-16.0); LYMPH # 0.7 (1.2-3.4); LYMPH % 13.1 % (22.0-35.0); MEAN CELL VOLUME 92.6 fl (80.0-105.0); MEAN CORPUSCULAR HEMOGLOBIN 29.5 pg (25.0-35.0); MEAN CORPUSCULAR HGB CONC 31.9 g/dl (31.0-37.0); MEAN PLATELET VOLUME 9.6 fl (7.0-11.0); MONO # 0.5 (0.1-0.6); RBC 3.52 10^6/uL (3.5-6.1); RED CELL DISTRIBUTION WIDTH 14.4 % (11.5-14.5); WHITE BLOOD COUNT 5.4 10^3/uL (4.5-11.0)
[2018-04-12 20:37] LABS: ALB/GLOB RATIO 1.2 (1.1-1.8); ALBUMIN 4.1 g/dL (3.0-4.8); CALCIUM 9.4 mg/dL (8.4-10.5)
--- NOTE | 2018-04-12 21:29 | ED PDOC ---
Physical Exam Vital Signs Temp Pulse Resp BP Pulse Ox 04/12/18 19:18 86 18 138/86 97 04/12/18 17:18 98.1 F 92 H 18 145/91 H 97 Medical Decision Making ED Course and Treatment: 04/12/18 21:00 Case endorsed to me by , pending CT scans, reevaluation, admission to hospital. 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 04/12/18 22:22 CT Neck, Soft Tissue reviewed, FINDINGS: PHARYNX: The nasopharynx, oropharyx, and hypopharynx are unremarkable. No pharyngeal mucosal based lesions. LARYNX: The larynx is unremarkable. Normal epiglottis. RETROPHARYNGEAL SPACE: No retropharyngeal soft tissue swelling or gas. SALIVARY GLANDS: The parotid, submandibular, and sublingual glands are unremarkable. LYMPH NODES: No lymphadenopathy is evident. THYROID: The thyroid gland is unremarkable. No nodule. BONES: No acute osseous abnormality. IMPRESSION: Unremarkable CT neck without IV contrast. Please see CT of the chest abdomen and pelvis dictated separately Electronically signed on Apr 12, 2018 9:43:39 PM EST by: Supa Rajput M.D., LAILA Certified By ABR & CBCCT Fellowship Trained MRI and CT Specialist CT Chest, Abdomen, Pelvis reviewed, There is no evidence of pleural or parenchymal mass. There are no pleural effusions. Specifically, there is no evidence for paratracheal and supraclavicular adenopathy. There is no evidence for a chest or abdominal wall nodule or mass. The heart is normal in size. Small pericardial effusion is seen. Small hiatal hernia is present. There is an apparent right hilar and suprahilar adenopathy present, as well as right paratracheal lymphadenopathy. Follow-up with CT of the chest with intravenous contrast is suggested. Scarring is seen in the right middle lobe and lingula. Several scattered emphysematous blebs are present. Left PICC line is in place with tip in the SVC. The liver is of uniform attenuation without mass or defect. The gallbladder is within normal limits. There is no intrahepatic or extrahepatic biliary ductal dilatation. The spleen is normal. The pancreas is of normal contour and attenuation characteristics. There is no evidence of adrenal mass. Right external-internal drainage catheter is present in the right kidney. The right kidney is severely atrophic. Several bubbles of air are present in the right renal collecting system. The left kidney is moderately atrophic with areas of cortical thinning and scarring. Left external to internal drainage catheter is also seen. Several bubbles of air present in the left collecting system. There is no bowel wall thickening. No evidence for small or large bowel obstruction. There is no evidence of abdominal ascites or lymphadenopathy. Status post complete hysterectomy. There is no evidence of intrinsic or extrinsic bladder mass. There is evidence of presacral edema. The bony structures are free of lytic or blastic lesions. Grade-1 anterolisthesis of L4 over L5. Multilevel degenerative spondylosis is seen most severe at L4-L5 and L5-S1. IMPRESSION: 1. Small pericardial effusion. 2. Small hiatal hernia. 3. Right hilar and suprahilar adenopathy present, as well as right paratracheal lymphadenopathy. Follow-up with CT of the chest with intravenous contrast is suggested. 4. Several scattered emphysematous blebs. 6. Right and left external-internal drainage catheter is present in the right kidney. Electronically signed on Apr 12, 2018 10:03:17 PM EST by: Supa Rajput M.D., LAILA Certified By ABR & CBCCT Fellowship Trained MRI and CT Specialist 04/12/18 22:56 Case discussed with , who is aware and agrees with plan. Accepts patient into his service. Patient will be admitted to [facility] for metastatic cancer, hematuria, and dysphagia. - Lab Interpretations Lab Results: 04/12/18 20:16 04/12/18 20:16 Lab Results 04/12/18 20:16: Sodium 139, Chloride 104, Potassium 3.7, Carbon Dioxide 28, Anion Gap 11, BUN 31 H, Creatinine 2.0 H, Est GFR ( Amer) 30, Est GFR (Non-Af Amer) 25, Random Glucose 104, Calcium 9.4, Total Bilirubin 0.2, AST 33, ALT 20, Alkaline Phosphatase 113, Total Protein 7.6, Albumin 4.1, Globulin 3.5, Albumin/Globulin Ratio 1.2 04/12/18 20:16: WBC 5.4, RBC 3.52, Hgb 10.4 L, Hct 32.6 L, MCV 92.6, MCH 29.5, MCHC 31.9, RDW 14.4, Plt Count 241, MPV 9.6, Gran % 74.1 H, Lymph % (Auto) 13.1 L, Bureau % (Auto) 9.0 H, Eos % (Auto) 3.4, Baso % (Auto) 0.4, Gran # 3.97, Lymph # (Auto) 0.7 L, Bureau # (Auto) 0.5, Eos # (Auto) 0.2, Baso # (Auto) 0.02 04/12/18 20:14: pO2 33, VBG pH 7.31 L, VBG pCO2 60.0, VBG HCO3 30.2 H, VBG Total CO2 32.0 H, VBG O2 Sat (Calc) 65.1 H, VBG Base Excess 2.4 H, VBG Potassium 3.6, Sodium 140.0, Chloride 105.0, Glucose 106 H, Lactate 0.6 L, FiO2 21.0, Venous Blood Potassium 3.6 - RAD Interpretation Radiology Orders: 04/12/18 18:58 CHEST PORTABLE [RAD] Stat 04/12/18 18:59 CHEST,ABDOMEN, PELVIS W/O CONT [CT] Stat NECK SOFT TISSUE W/O CONTRAST [CT] Stat - Medication Orders Current Medication Orders: Discontinued Medications Albuterol Sulfate (Albuterol 0.083% Inhal Viviane (2.5 Mg/3 Ml) Ud) 2.5 mg INH STAT STA Stop: 04/12/18 18:59 Last Admin: 04/12/18 19:48 Dose: 2.5 mg Dexamethasone (Decadron Inj) 10 mg IVP STAT STA Stop: 04/12/18 19:01 Last Admin: 04/12/18 20:05 Dose: 10 mg IVP Administration Document 04/12/18 20:05 SERGEI (Rec: 04/12/18 20:12 SERGEI [facility] [id number]) Charges for Administration # of IVP Administrations 1 Disposition/Present on Arrival - Present on Arrival Any Indicators Present on Arrival: No History of DVT/PE: No History of Uncontrolled Diabetes: No Urinary Catheter: Yes History of Decub. Ulcer: No History Surgical Site Infection Following: None - Disposition Have Diagnosis and Disposition been Completed?: Yes Diagnosis: Hematuria, Metastatic cancer, Dysphagia Disposition: HOSPITALIZED Disposition Time: 23:04 Patient Plan: Admission Patient Problems: Current Active Problems Problem Status Onset Dysphagia Acute Hematuria Acute Metastatic cancer Acute Condition: STABLE
[2018-04-12 21:56] LABS: URINE BILIRUBIN MODERATE (NEGATIVE); URINE BLOOD LARGE (NEGATIVE); URINE GLUCOSE (UA) NEGATIVE (NEGATIVE); URINE LEUKOCYTE ESTERASE LARGE Leu/uL (NEGATIVE); URINE PROTEIN >=300 mg/dL (<30 mg/dL)
[2018-04-12 21:57] LABS: URINE APPEARANCE CLOUDY (CLEAR); URINE COLOR RED (YELLOW)
[2018-04-12 22:00] LABS: URINE RBC TNTC /hpf (0-2)
[2018-04-12 22:01] LABS: URINE BACTERIA LARGE /hpf
[2018-04-12] MEDS ORDERED: Oxycodone/Acetaminophen 5/325 mg Tab PO PRN (23:13)
[2018-04-12] MEDS ORDERED: Promethazine/Cod 6.25mg-10mg/5ml Syr UD PO PRN (23:30)
[2018-04-13 00:33] VITALS: BMI 23.7
[2018-04-13 08:31] LABS: HEMOGLOBIN 9.7 g/dL (12.0-16.0); MEAN CELL VOLUME 91.6 fl (80.0-105.0); MEAN CORPUSCULAR HEMOGLOBIN 29.1 pg (25.0-35.0); MEAN CORPUSCULAR HGB CONC 31.8 g/dl (31.0-37.0); MEAN PLATELET VOLUME 9.3 fl (7.0-11.0); RBC 3.33 10^6/uL (3.5-6.1); RED CELL DISTRIBUTION WIDTH 14.2 % (11.5-14.5); WHITE BLOOD COUNT 3.4 10^3/uL (4.5-11.0)
[2018-04-13 08:43] LABS: ALBUMIN 3.6 g/dL (3.0-4.8); CALCIUM 9.4 mg/dL (8.4-10.5)
[2018-04-13] MEDS: POLYETHYLENE GLYCOL 3350 17 GM/Dose PACKET PO SCH ×3 (09:28→17:12)
--- NOTE | 2018-04-13 10:03 | CARD ---
APPROVED REPORT Date of service: 04/12/2018 EKG Measurement Heart [id number] <Conclusion> Poor data quality, interpretation may be adversely affected Normal sinus rhythm Minimal voltage criteria for LVH, may be normal variant Cannot rule out Anterior infarct, age undetermined Abnormal ECG
--- NOTE | 2018-04-13 10:39 | CT ---
Date of service: 04/12/2018 PROCEDURE: CT NECK WITHOUT CONTRAST HISTORY: dyspnea COMPARISON: None available. TECHNIQUE: CT of the neck without intravenous contrast. Coronal and sagittal reformats generated. Radiation dose: Total exam DLP = 455.43 mGy-cm. This CT exam was performed using one or more of the following dose reduction techniques: Automated exposure control, adjustment of the mA and/or kV according to patient size, and/or use of iterative reconstruction technique. FINDINGS: NASOPHARYNX: Unremarkable. SUPRAHYOID NECK: Unremarkable oropharynx, oral cavity, parapharyngeal space and retropharyngeal space. INFRAHYOID NECK: Unremarkable larynx, hypopharynx, and supraglottic space. Vocal cords intact. MASS: None. GLANDS: Parotid and submandibular glands unremarkable. Normal size thyroid gland, without nodule. LYMPH NODES: Normal. No lymphadenopathy. CERVICAL SPINE: No fracture or focal lesion. OTHER FINDINGS: The report concurs with the preliminary [facility] report IMPRESSION: Unremarkable non-contrast enhanced CT of the neck.
--- NOTE | 2018-04-13 10:48 | CT ---
Date of service: 04/12/2018 PROCEDURE: CT Chest, Abdomen and Pelvis without intravenous contrast HISTORY: hematuria, nephrostomy tubes bilat COMPARISON: 03/12/2018 PET-CT TECHNIQUE: Radiation dose: Total exam DLP = 848.37 mGy-cm. This CT exam was performed using one or more of the following dose reduction techniques: Automated exposure control, adjustment of the mA and/or kV according to patient size, and/or use of iterative reconstruction technique. FINDINGS: CT CHEST WITHOUT CONTRAST: LUNGS: Clear. No nodule, mass or consolidation. MEDIASTINUM: Unremarkable. Normal caliber aorta and pulmonary arterial trunk. Normal size heart. LYMPH NODES: There is extensive mediastinal adenopathy unchanged from the recent PET-CT. PLEURA: Minimal pericardial effusion BONES: Unremarkable. OTHER FINDINGS: None. CT ABDOMEN AND PELVIS: LIVER: Unremarkable. No gross lesion or ductal dilatation. GALLBLADDER AND BILE DUCTS: Unremarkable. PANCREAS: Unremarkable. No gross lesion or ductal dilatation. SPLEEN: Unremarkable. ADRENALS: Unremarkable. No mass. KIDNEYS AND URETERS: Bilateral nephrostomy tubes. VASCULATURE: Aortic calcification Unremarkable. No aortic aneurysm. BOWEL: Unremarkable. No obstruction. No gross mural thickening. Moderate constipation. Scarring in the perirectal fat planes unchanged APPENDIX: Normal appendix. PERITONEUM: Unremarkable. No free fluid. No free air. LYMPH NODES: Unremarkable. No enlarged lymph nodes. BLADDER: Unremarkable. REPRODUCTIVE: Unremarkable. BONES: No acute fracture. OTHER FINDINGS: None. IMPRESSION: Bilateral nephrostomy tubes. No change from prior study
[2018-04-13] MEDS ORDERED: Morphine 2 mg/ml ISec IVP PRN (11:45)
--- NOTE | 2018-04-13 12:18 | RAD ---
Date of service: 04/12/2018 HISTORY: pneumonia COMPARISON: 03/29/2018 FINDINGS: LUNGS: No active pulmonary disease. PLEURA: No significant pleural effusion identified, no pneumothorax apparent. CARDIOVASCULAR: No aortic atherosclerotic calcification present. Mild cardiomegaly. No pulmonary vascular congestion. OSSEOUS STRUCTURES: No significant abnormalities. VISUALIZED UPPER ABDOMEN: Normal. OTHER FINDINGS: Left-sided arm port terminating at the junction of the SVC and right atrium IMPRESSION: No active disease.
--- NOTE | 2018-04-13 12:30 | CON ---
DATE: 04/13/2018 HISTORY OF PRESENT ILLNESS: The patient is a 67-year-old white female with multiple medical issues including carcinoma stage III of cervix, coronary artery disease, Watkins esophagus, CVA, cystitis, nephrostomy tube, chronic renal dysfunction (the patient referred to medical notes for full description of medical issues), history of depression, anxiety, no prior psychiatric admissions or suicide attempts, currently prescribed Zoloft and Ativan by Dr Ford for symptoms, who is being evaluated on medical floor after she presented with throat pain and hematuria for few days. Psychiatrist consult for possible symptoms of depression. I met with the patient at bedside and she is agreeable to psychiatric evaluation, although appears to be tired. She is quite oriented to month, year, location and circumstances. The patient is aware that I am a psychiatrist, she is interested in psychiatric treatment when she is medically cleared; however, she does not want to be psychiatrically hospitalized. She feels okay at this time, she feels Zoloft has been helping her even though it is in a very low dose of 25 mg, she feels less depressed, she is not suicidal, she denies , she denies any hopelessness, but mentions her affect is constricted; however, she is overall coherent, consistent and relevant with repeated questioning. There had been no behavioral issues and she denies any perceptual disturbance and defers on any kind of further psychiatric management while she has been medically optimized. Insight and judgment are considered to be fair. Vitals and labs were reviewed. Relevant psychiatric medications include Ativan 0.5 p.o. or IV every 6 hours p.r.n., Zoloft 25 mg daily as well. PSYCHIATRIC HISTORY: The patient denies any prior psychiatric admissions or suicide attempts, has been taking Zoloft 25 mg daily prescribed by Dr Ford for a few years. No chronic outpatient psychiatric follow up, however. SOCIAL HISTORY: The patient reports that she is . She has no children, she lives by herself. IMPRESSION: Major depression, improved with Zoloft that considered to be minor to moderate, rule out adjustment disorder with mixed depression secondary to general medical condition. The patient has multiple medical issues. Anxiety disorder, not otherwise specified. RECOMMENDATIONS: We will continue Zoloft as prescribed by Dr Ford. She feels that this medication has been helpful at this time. She defers on any further changes to this dose. The patient, however, does seem to be interested in pursuing outpatient psychiatric treatment once she is medically stabilized and that she will be given referrals for outpatient psychiatry at a location that is convenient for her and she expresses some interest in attending our [facility] clinic in this respect. She is psychiatrically cleared that she should be medically cleared, there is no indication for her to be involuntarily committed. This leader writer will sign off. Please again provide a referral for outpatient psychiatric care as she has requested this during my bedside review with her this morning. Jasen Cerrato MD
[2018-04-13] MEDS ORDERED: Morphine 2 mg/ml ISec IVP STA (16:57)
--- NOTE | 2018-04-13 17:42 | CARD ---
APPROVED REPORT Date of service: 04/13/2018 EXAM: Two-dimensional and M-mode echocardiogram with Doppler and color Doppler. INDICATION STENTS 2D DIMENSIONS IVSd0.9 (0.7-1.1cm)LVDd4.5 (3.9-5.9cm) PWd0.9 (0.7-1.1cm)LVDs3.1 (2.5-4.0cm) FS (%) 31.0 %LVEF (%)58.8 (>50%) M-Mode DIMENSIONS Left Atrium (MM)3.70 (2.5-4.0cm)Aortic Root2.80 (2.2-3.7cm) Aortic Cusp Exc.1.90 (1.5-2.0cm) Aortic Valve AoV Peak Khkenyli889.0cm/John Peak GR.12mmHg Mitral Valve MV E Bcbwcbex24.9cm/sMV A Ayuwrpgs61.4cm/sE/A ratio1.0 TDI Lateral E' Peak V10.30cm/sMedial E' Peak V6.53cm/sE/Lateral E'8.2 E/Medial E'13.0 Tricuspid Valve TR Peak Ijimlnde122pr/sRAP [id number] Peak Gr.39mmHg CVST96odZn LEFT VENTRICLE The left ventricle is normal size. There is normal left ventricular wall thickness. The left ventricular function is normal.EF-55-60% There is normal LV segmental wall motion. The left ventricular diastolic function is normal. No left ventricle thrombus noted on this study. There is no ventricular septal defect visualized. There is no left ventricular aneurysm. There is no mass noted in the left ventricle. RIGHT VENTRICLE The right ventricle is normal size. There is normal right ventricular wall thickness. The right ventricular systolic function is normal. ATRIA The left atrium size is normal. The right atrium size is normal. The interatrial septum is intact with no evidence for an atrial septal defect. AORTIC VALVE The aortic valve is thickened but opens well. No aortic regurgitation is present. There is no aortic valvular stenosis. There is no aortic valvular vegetation. MITRAL VALVE The mitral valve is thickened but opens well. Mitral regurgitation is mild to moderate. There is no mitral valve stenosis. There is no evidence of mitral valve prolapse. TRICUSPID VALVE The tricuspid valve leaflets are thickened , but open well. There is mild tricuspid regurgitation.RVSP-49 mmof Hg. There is mild to moderate pulmonary hypertension. There is no tricuspid valve stenosis. There is no tricuspid valve prolapse or vegetation. PULMONIC VALVE The pulmonary valve is normal in structure. There is no pulmonic valvular regurgitation. There is no pulmonic valvular stenosis. GREAT VESSELS The aortic root is normal in size. The ascending aorta is normal in size. The pulmonary artery is normal. The IVC is normal in size and collapses >50% with inspiration. PERICARDIAL EFFUSION There is no pleural effusion. There is no pericardial effusion. <Conclusion> Normal Chamber Size. EF-55-60% Mitral regurgitation is mild to moderate. There is mild tricuspid regurgitation.RVSP-49 mmof Hg. There is mild to moderate pulmonary hypertension. There is no pericardial effusion. The IVC is normal in size and collapses >50% with inspiration.
--- NOTE | 2018-04-13 21:18 | CON ---
DATE OF CONSULTATION: 04/13/2018 REFERRING PHYSICIAN: Dr. Ford REASON FOR CONSULTATION: Cough, shortness of breath and metastatic disease to lung. HISTORY OF PRESENT ILLNESS: This is a 67-year-old female known to have a carcinoma of the cervix, coronary artery disease, history of coronary stent, renal failure requiring bilateral nephrostomy tube, history of rectal ectasia, Barrette esophagus, GERD, stroke, history of radiation as a cause of cystitis. Recently had a PET scan, which showed metastatic disease involving the lungs and also I believe thyroid. She had a biopsy done, which was consistent with squamous cell carcinoma consistent with history of cervical cancer. Right nephrostomy has blood tinged secretion. Having some cough, shortness of breath. No hemoptysis, hematemesis, or hematuria. No diarrhea reported. PAST MEDICAL HISTORY: Cervical cancer, coronary artery disease with coronary stent, GERD, Watkins esophagus, renal failure requiring bilateral nephrostomy tubes, has hematuria, history of childhood bronchitis/asthma, has sleep apnea syndrome, history of psoriasis, history of GI bleed, diverticulitis. FAMILY HISTORY: No significant cardiopulmonary disease reported. SOCIAL HISTORY: Never smoked. MEDICATIONS: She is on Ativan 0.5 mg every 6 hours p.r.n., MiraLax 70 g p.o. twice a day, morphine 2 mg every 4 hour p.r.n., Pepcid 20 mg daily, Percocet 5/325 one tablet every 4 hours p.r.n., Phenergan with codeine every 6 hours p.r.n., Tylenol p.r.n., Zoloft 20 mg daily. ALLERGIES: NONE KNOWN. REVIEW OF SYSTEMS: No headache, no rhinitis. Has some cough and shortness of breath. No chest pain. No nausea, no vomiting. No abdominal pain. Right nephrostomy tube has some blood-tinged urine. No edema. PHYSICAL EXAMINATION: GENERAL: No acute distress. VITAL SIGNS: Temperature is 98, heart rate 68, respiratory rate is 20, blood pressure 112/68, pulse ox 96% on nasal cannula. HEENT: Moist mucous membranes. Crowded airway. Mallampati score is 4. NECK: Supple. No JVD. LUNGS: Scattered rhonchi, right more than the left. HEART: S1 and S2. ABDOMEN: Soft, nontender, nondistended. Has bilateral nephrostomy tubes. EXTREMITIES: Not much edema. NEUROLOGICAL: Awake, alert, follows simple commands. LABORATORY DATA: Hemoglobin 9.7, hematocrit 30.5, WBC 3.4, platelet count is 237,000. INR 1.02. PTT 32. VBG done yesterday showed pH 7.31, pCO2 of 60, O2 is 33, that is on room air. Sodium 139, potassium 4.2, chloride 107, bicarbonate 24, BUN 28, creatinine 1.7, glucose 130. AST is 24, ALT 19, alk phos is 98. Albumin is 3.6. Urinalysis shows large blood, nitrites are positive, wbc 5-10. Had a CAT scan of the chest, abdomen and pelvis done yesterday on admission, which shows bilateral nephrostomy tubes. Lungs are clear. There is extensive mediastinal adenopathy, unchanged from the recent CT/PET. CT of the neck is unremarkable. IMPRESSION AND PLAN: Metastatic cervical cancer, been on chemo and radiation therapy, newly diagnosed recently, has mets to the mediastinum. Also has renal failure, requiring bilateral nephrostomy. Has a right kidney hematuria, coronary artery disease, history of coronary stent, history of bronchitis as a child, also has sleep apnea syndrome. We will start her on inhaled bronchodilator. Keep head elevated at 45 degrees. Get procalcitonin in the morning. Gastric prophylaxis. May discontinue Pepcid and Protonix. Has a history of Watkins esophagus. May also place her CPAP at 7 cm 35% oxygen while sleeping. Oncology followup. Thank you and we will follow with you. Debby Reis MD
[2018-04-13] MEDS: Arformoterol 15 mcg/2 ml Inh Sol IH SCH (21:49)
[2018-04-13] MEDS: Budesonide 0.5 mg/2 ml Inhal Susp UD IH SCH (21:50)
[2018-04-13] MEDS: Acetylcysteine 20% Inhal Soln (4ml) IH SCH (21:53)
--- NOTE | 2018-04-14 05:07 | HP ---
DATE OF EXAM: 04/13/2018 HISTORY OF PRESENT ILLNESS: This is a 67-year-old female with past medical history includes stage IIIB carcinoma of the cervix, coronary artery disease with 4 coronary stents, chronic renal dysfunction, status post bilateral nephrostomy tube, rectal ectasia, Watkins's esophagus, CVA, urinary bladder bleeding, status post radiation cystitis, status post embolization of the cystic artery. Recently complaining of increasing throat pain and neck vein distention, has been having hematuria to the right nephrostomy catheter for the last few days, has been having increasing difficulty in swallowing for the last 2 weeks and she has been having some experiencing with wheezing as well. The patient has 2 nephrostomy bags, one on the right has been containing blood while the left one has been having clear urine. The patient denies any fevers, chills, shortness of breath, diarrhea, nausea or vomiting. The patient has had some problems with rectal bleeding as well probably related to constipation. REVIEW OF SYSTEMS: A 12-system review of systems except for the constipation and the difficulty in swallowing, the rest of the review of system did not reveal anything except for what is mentioned in the HPI. PAST MEDICAL HISTORY: Significant for the fact that she had stage IIIB carcinoma of the cervix, given primary radiation externally and then internal placement of radiation beam rods as well along with intravenous weekly cisplatin therapy. The patient has been in continuous remission albeit, she has had several complications as a result of a combined therapy. The patient has had several admissions to the hospital and the last staging PET CT was in 2014 and since she was doing well. The regular scans were negative for any metastatic disease. Recently in view of the progressive discomfort specifically with coughing and dysphagia, we decided to set her up for a PET CT scan with a concerned being about other new primary or colon cancer. PET CT scan showed increased activity in the mediastinum, right hilar area and subcarinal nodes consistent with either primary lung tumor, lymphoma or recurrent carcinoma with a history of stage IIIB cervical cancer. PET CT did not show any activity below the diaphragm. The patient had a CT-guided biopsy of this lesion done last week and the biopsy was just read on Sunday after being send out with Oncology as revealing metastatic carcinoma of cervical cancer origin . SOCIAL HISTORY: The patient has never smoked in the past. MEDICATIONS: Include Ativan 0.5 mg every 6 hours p.r.n., MiraLax 17 g p.o. twice daily, morphine 2 mg IV every 4 hours p.r.n., Pepcid 20 mg daily, Percocet 5/325, 1 table every 4 hours p.r.n., Phenergan with codeine for cough, Tylenol p.r.n., and Zoloft 25 mg p.o. daily. ALLERGIES: THE PATIENT HAS NO KNOW ALLERGIES. PHYSICAL EXAMINATION: GENERAL: The patient is in no acute distress. VITAL SIGNS: T-max is 98.4, heart rate is 68, respirations 20. HEENT: Head is normocephalic, atraumatic. The patient has poor dentition. No oropharyngeal lesions are seen. NECK: Supple. No jugular venous distention is noted. LUNGS: Reveals scattered rhonchi, right greater than the left. HEART: Reveals PMI to be in the fifth intercostal space inside the mid clavicular line. S1 and S2 are normal. No gallop or murmur is heard. ABDOMEN: Soft and nontender. The patient has bilateral nephrostomy tube with right nephrostomy tube showing blood in the collecting bag. Left nephrostomy tube is clearing urine. EXTREMITIES: Reveals no cyanosis, clubbing or edema. NEUROLOGIC: Reveals higher function study to be normal. No focal deficits are noted. GENITOURINARY AND RECTAL: Deferred. LABORATORY DATA: Reveals a hemoglobin 9.7, hematocrit 30, white count is 3.4, platelet count 237,000. INR is 1.02. VBG done yesterday showed a pH of 7.31, pO2 of 60, O2 of 33. Sodium is 139, K is 4.2, chloride is 107, bicarbonate is 24, BUN is 28, creatinine of 1.7. Glucose is 130. AST is 24. ALT is 90. Alkaline phosphatase is 98. Urine shows large blood. The patient's CAT scan of the chest, abdomen and pelvis shows bilateral nephrostomy tube. Lungs appears that there is extensive mediastinal adenopathy unchanged from the recent PET CT scan. CAT scan of the neck is unremarkable. ASSESSMENT, NOTES AND PLAN: The patient has recurrent progressive stage IV metastatic carcinoma of the cervical origin. Plan will be to see the patient reassessed for possible systemic chemotherapy with a combination of drug such as Avastin and based regimen. We will have to make sure prior to that we get cardiac clearance as she has at least more than 4 stents, which she has not had any recent stress testing on her. We are going to get involvement in consultation with the manager benefit, Dr. Oliva, pulmonary evaluation by Dr. Reis. They are also going to get an opinion from the radiation oncologist, Dr. Aguiar to see the patient if he is a candidate for local of the mediastinum by giving systemic chemotherapy. The patient is also going to be seen by GI for dysphagia, so we can make further decisions on the treatment management. The patient did have history of bleeding GI britt from rectal ectasia and sacral ulcer in the sigmoid colon from chronic constipation. We will follow up on the patient with labs and then make further determination in which direction to proceed. Gudelia Ford MD
[2018-04-14] MEDS: Pantoprazole 40 mg EC Tab PO SCH (05:58)
[2018-04-14] MEDS: Acetylcysteine 20% Inhal Soln (4ml) IH SCH (08:04)
[2018-04-14] MEDS: Budesonide 0.5 mg/2 ml Inhal Susp UD IH SCH ×2 (08:05→21:50)
[2018-04-14] MEDS: Arformoterol 15 mcg/2 ml Inh Sol IH SCH ×2 (08:05→21:50)
[2018-04-14] MEDS: POLYETHYLENE GLYCOL 3350 17 GM/Dose PACKET PO SCH ×2 (10:03→17:59)
--- NOTE | 2018-04-14 12:17 | CP.PCM.CON ---
History of Present Illness - History of Present Illness History of Present Illness: Ms Kitchen is a 67 year old female with history of stage III cervical cancer status post chemoradiation, CAD status post stent, CRI, h/o nephrostomy tubes, radiation cystitis who was admitted on April 12 with a feeling a throat lump and hematuria. She also reports a progressive history of shortness of breath, dyspnea on exertion and a 35 lb weight loss. She had a CT of the neck which was negative. A CT of the chest, abdomen and pelvis was only remarkable for her known mediastinal disease. She recently had been found to have metastases to the mediastinum/hilum from her cervical cancer. We were asked to see the patient for input regarding her condition Review of Systems - Respiratory Respiratory: Cough, Dyspnea, Wheezing Past Patient History - Infectious Disease Hx of Infectious Diseases: None - Tetanus Immunizations Tetanus Immunization: Unknown - Past Medical History & Family History Past Medical History?: Yes - Past Social History Smoking Status: Former Smoker - CARDIAC Hx Cardiac Disorders: Yes (cad stent x4) Hx Hypercholesterolemia: Yes Hx Hypertension: Yes Hx Mitral Valve Prolapse: Yes Hx Pacemaker: No - PULMONARY Hx Respiratory Disorders: Yes Hx Asthma: No Hx Bronchitis: Yes Hx Sleep Apnea: Yes - NEUROLOGICAL Hx Neurological Disorder: Yes (tympanic tubes) Hx Dizziness: Yes Hx Transient Ischemic Attacks (TIA): Yes (20yrs ago) - HEENT Hx HEENT Problems: Yes (glasses) Other/Comment: left tympanic tubes placed - RENAL Hx Chronic Kidney Disease: Yes Hx Kidney Stones: Yes Hx Renal Failure: Yes Other/Comment: Nephrostomy tubes bilateral, 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 - ENDOCRINE/METABOLIC Hx Endocrine Disorders: No - HEMATOLOGICAL/ONCOLOGICAL Hx Blood Disorders: Yes Hx Anemia: Yes (WITH BLOOD TRANSFUSION) Hx Cancer: Yes (Cervical) Hx Chemotherapy: Yes (and radiation) Hx Metastesis: Yes (chest mass) - INTEGUMENTARY Hx Dermatological Problems: Yes Hx Eczema: Yes Hx Psoriasis: Yes - MUSCULOSKELETAL/RHEUMATOLOGICAL Hx Musculoskeletal Disorders: Yes (r ankle/ R WRIST FX R/T FALL 06/2015) Hx Falls: No Hx Fractures: Yes (right wrist, right ankle) - GASTROINTESTINAL Hx Gastrointestinal Disorders: Yes (GI bleed) Hx Diverticulitis: Yes Hx Gastroesophageal Reflux: Yes - GENITOURINARY/GYNECOLOGICAL Hx Genitourinary Disorders: Yes Hx Hematuria: Yes Hx Urinary Tract Infection: Yes Other/Comment: nephrostomy surgery - PSYCHIATRIC Hx Psychophysiologic Disorder: Yes Hx Anxiety: Yes Hx Depression: Yes Hx Emotional Abuse: No Hx Physical Abuse: No - SURGICAL HISTORY Hx Surgeries: Yes Hx Cardiac Catheterization: Yes Hx Coronary Stent: Yes Hx Hysterectomy: Yes Other/Comment: nephrostomy tubes,CARDIAC STENTS ,HYSTERECTOMY,RIGHT ANKLE FX, - ANESTHESIA Hx Anesthesia: Yes Hx Anesthesia Reactions: Yes (NAUSEA) Hx Malignant Hyperthermia: No Meds Allergies/Adverse Reactions: Allergies Allergy/AdvReac Type Severity Reaction Status Date / Time No Known Allergies Allergy Verified 04/12/18 23:20 - Medications Medications: Current Medications Acetaminophen (Tylenol 325mg Tab) 325 mg PO Q6H PRN PRN Reason: Pain, Mild (1-3) Acetylcysteine (Acetylcysteine 20%) 3 ml IH BID [facility] Last Admin: 04/14/18 08:04 Dose: 3 ml Arformoterol Tartrate (Brovana) 15 mcg IH [id number] [facility] Last Admin: 04/14/18 08:05 Dose: 15 mcg Budesonide (Pulmicort Respules) 0.5 mg IH [id number] [facility] Last Admin: 04/14/18 08:05 Dose: 0.5 mg Famotidine (Pepcid) 20 mg PO DAILY [facility] Last Admin: 04/14/18 10:03 Dose: 20 mg Home Med (Home Med) 2 unit PO BID [facility] Last Admin: 04/14/18 10:03 Dose: 2 unit Lorazepam (Ativan) 0.5 mg IVP Q6 PRN; Protocol PRN Reason: Agitation Last Admin: 04/13/18 01:15 Dose: 0.5 mg Lorazepam (Ativan) 0.5 mg PO Q6 PRN; Protocol PRN Reason: Anxiety/Stress Morphine Sulfate (Morphine) 2 mg IVP Q4H PRN PRN Reason: Pain, severe (8-10) Pantoprazole Sodium (Protonix Ec Tab) 40 mg PO 0600 [facility] Last Admin: 04/14/18 05:58 Dose: 40 mg Polyethylene Glycol (Miralax) 17 gm PO BID [facility] Last Admin: 04/14/18 10:03 Dose: 17 gm Promethazine HCl/Codeine (Phenergan/Codeine Oral Syrup) 5 ml PO Q6 PRN PRN Reason: Cough Sertraline HCl (Zoloft) 25 mg PO QAM [facility] Last Admin: 04/14/18 10:03 Dose: 25 mg Physical Exam - Head Exam Head Exam: NORMAL INSPECTION - Eye Exam Eye Exam: EOMI - Neck Exam Neck exam: Positive for: Normal Inspection - Respiratory Exam Respiratory Exam: Wheezes - Cardiovascular Exam Cardiovascular Exam: REGULAR RHYTHM - GI/Abdominal Exam GI & Abdominal Exam: Normal Bowel Sounds - Neurological Exam Neurological exam: CN II-XII Intact, Oriented x3 Results - Vital Signs Recent Vital Signs: Last Vital Signs Temp 97.7 F 04/14/18 06:00 Pulse 71 04/14/18 06:00 Resp 18 04/14/18 06:00 BP 138/86 04/14/18 06:00 Pulse Ox 96 04/14/18 06:00 - Labs Result Diagrams: 04/13/18 08:20 04/13/18 08:20 Labs: Laboratory Results - last 24 hr 04/14/18 07:00 TSH 3rd Generation 1.43 Assessment & Plan - Assessment and Plan (Free Text) Assessment: Ms Kitchen has a history of a stage IIIB cervical cancer which has now metastases to her mediastinum/hilum. We would concur based on her symptoms that her disease is contributing to her pulmonary symptoms. We would recommend palliative radiation therapy. We spoke to the patient about radiation which she was amenable to. We will touch base with Dr Ford, but will tentatively schedule her for a simulation session tomorrow.
--- NOTE | 2018-04-14 17:13 | CON ---
DATE OF CONSULTATION: 04/14/2018 REQUESTING PHYSICIAN: Dr. Ford This consult is for Dr. Sumner, Dr. Richardson covering. REASON FOR CONSULTATION: I have been asked to see this 67-year-old female with stage IV cervical cancer treated with chemotherapy and radiation, history of bilateral hydronephrosis requiring nephrostomy tube placement, history of coronary artery disease with multiple coronary artery stent placements, Watkins's esophagus, CVA, radiation cystitis with hematuria requiring embolization of the cystic artery, history of stercoral rectal ulcer from constipation, who comes to the hospital with blood in the urine from the right nephrostomy tube, difficulty swallowing and intermittent rectal bleeding. The patient states that she has intermittent dysphagia even to liquids at the level of the cervical esophagus. She denies any cough or regurgitation. She denies any signs of aspiration. She states that she has been having loose bowel movements tinged with blood. PAST MEDICAL HISTORY: As above. 1. Again, she has a history of stage IV cancer of the cervix, status post radiation and chemotherapy. 2. Coronary artery disease with history of coronary artery stents. 3. Bilateral hydronephrosis requiring nephrostomy tube placement. 4. 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 5. Watkins's esophagus. 6. Chronic renal dysfunction. 7. Stercoral rectal ulcer from constipation. FAMILY HISTORY: Noncontributory. SOCIAL HISTORY: She denies cigarette smoking or alcohol use. MEDICATIONS AT HOME: MiraLax, morphine, Pepcid, Percocet, Ativan, Phenergan with Codeine, Zoloft and Tylenol. REVIEW OF SYSTEMS: A 14-point review of systems is notable for dysphagia, rectal bleeding, and blood from her right nephrostomy tube. PHYSICAL EXAMINATION: GENERAL: Well-developed female, appearing comfortable. VITAL SIGNS: Temperature of 97.7, blood pressure 138/86, heart rate 71. HEENT: Reveal sclerae to be white. Conjunctivae pink. NECK: Supple. There no masses in the neck. CHEST: Distant breath sounds. HEART: Regular rate and rhythm. ABDOMEN: Soft. She has bilateral nephrostomy tubes. RECTAL: The patient is refusing a rectal exam at this time. EXTREMITIES: No edema. LABORATORY DATA: BUN 28, creatinine 1.7, white blood cell count 3.4, hemoglobin 9.7. Urine shows positive nitrites with a large amount of blood. IMPRESSION: 1. A 67-year-old female with stage IV cancer of the cervix with bilateral hydronephrosis requiring bilateral nephrostomy tubes with dysphagia. One must rule out a esophageal stricture versus esophagitis. 2. Rectal bleeding with a history of stercoral ulcer. RECOMMENDATIONS: 1. We will request an esophagram. 2. The patient will need an endoscopy and possibly flexible sigmoidoscopy. 3. Continue pantoprazole. Dr. Sumner will take over the care of this patient starting 04/15/2018. Daniel Richardson MD
[2018-04-14] MEDS: Morphine 2 mg/ml ISec IVP PRN ×2 (18:30→22:23)
[2018-04-14 20:33] LABS: BASO # 0.03 K/mm3 (0.0-2.0); BASO % 0.5 % (0.0-3.0); EOS # 0.2 (0.0-0.7); EOS % 2.8 % (1.5-5.0); GRAN # 4.54 (1.4-6.5); HEMOGLOBIN 10.2 g/dL (12.0-16.0); LYMPH % 15.8 % (22.0-35.0); MEAN CELL VOLUME 92.6 fl (80.0-105.0); MEAN CORPUSCULAR HEMOGLOBIN 29.2 pg (25.0-35.0); MEAN CORPUSCULAR HGB CONC 31.6 g/dl (31.0-37.0); MEAN PLATELET VOLUME 8.5 fl (7.0-11.0); MONO # 0.4 (0.1-0.6); MONO % 5.9 % (1.0-6.0); RBC 3.49 10^6/uL (3.5-6.1); RED CELL DISTRIBUTION WIDTH 14.3 % (11.5-14.5); WHITE BLOOD COUNT 6.1 10^3/uL (4.5-11.0)
[2018-04-14 20:48] LABS: ALB/GLOB RATIO 1.1 (1.1-1.8); ALBUMIN 3.9 g/dL (3.0-4.8); CALCIUM 9.5 mg/dL (8.4-10.5)
--- NOTE | 2018-04-14 21:16 | PN ---
DATE: 04/14/2018 REFERRING PHYSICIAN: Evaristo Saldivar MD SUBJECTIVE: She is lying in the bed, head 45 degrees. Feels better, has some cough and clearer sputum, does not like nebulizer treatment. Refusing to take Mucomyst. Also refused last night CPAP. She has a known sleep apnea syndrome, but claustrophobic, does not like anything on the face. Cough is better. No nausea, vomiting, diarrhea, leg pain or leg swelling. OBJECTIVE: VITAL SIGNS: Temperature is 98, heart rate 71, respiratory rate 18, blood pressure 138/86, pulse of 96% on room air. HEENT: Moist mucous membranes. Crowded airway. NECK: Supple. No JVD. LUNGS: Have scattered rhonchi, but better airflow than yesterday. HEART: S1 and S2. ABDOMEN: Soft, nontender, no organomegaly. EXTREMITIES: No edema. NEUROLOGIC: Awake, alert, follows simple command. MEDICATIONS: She is on Mucomyst 20% inhaled twice a day, lorazepam 0.5 mg every 6 hours p.r.n. and also Brovana inhaled twice a day, MiraLax 17 g p.o. twice a day, Pepcid at 20 mg daily, morphine 2 mg every 4 hours p.r.n., Phenergan with Codeine every 6 hours p.r.n., Protonix 40 mg daily, Pulmicort inhaled twice a day, Tylenol on p.r.n. basis. LABORATORY DATA: Reviewed. TSH today is 1.43. IMPRESSION AND PLAN: Metastatic cervical cancer, been on chemotherapy and radiation therapy in the past, now has a progressive disease involving the lungs, renal failure requiring bilateral nephrostomies, has a hematuria, coronary artery disease, history of coronary stent, bronchitis, may have sleep apnea syndrome, pulmonary hypertension. I had a long discussion with the patient, talked about sleep apnea relation to pulmonary hypertension and she expressed understanding, but refusing to use continuous positive airway pressure, wishing to continue inhaled bronchodilator, but does not want Mucomyst, we will discontinue it. Gastric prophylaxis, deep vein thrombosis prophylaxis. The patient seen by Radiation Oncology. Radiation is planned. Also has a Barrette's esophagus, started on Protonix. Thank you and we will follow with you. Debby Reis MD [facility] # [id number]
[2018-04-15] MEDS: Pantoprazole 40 mg EC Tab PO SCH (05:45)
[2018-04-15] MEDS: Budesonide 0.5 mg/2 ml Inhal Susp UD IH SCH (07:40)
[2018-04-15] MEDS: Arformoterol 15 mcg/2 ml Inh Sol IH SCH (07:40)
[2018-04-15 08:31] VITALS: TEMP 97.9
--- NOTE | 2018-04-15 09:03 | CP.PCM.PCO ---
Physician Communication Note - Physician Communication Note Physician Communication Note: psychiatric team signed off
--- NOTE | 2018-04-15 09:48 | PN ---
DATE: 04/14/2018 ONCOLOGY PROGRESS NOTE LOCATION: The patient is in room 368, bed 2. SUBJECTIVE: The patient is lying in bed. The patient feels better, some cough, but does not have any significant hemoptysis. The patient is refusing to take the CPAP and also the inhalation therapy. The patient is claustrophobic and does not like anything on her face. The patient had a bowel movement today, and she noticed that her bleeding in the right nephrostomy tube is better, the urine is clear. Denies any history of nausea, vomiting, diarrhea, difficulty in swallowing is still there, but has been on a soft diet. The patient was seen by Dr. Ashley covering for Dr. Sumner and also by Dr. Aguiar radiation oncologist. PHYSICAL EXAMINATION: VITAL SIGNS: Objectively, the patient's vital signs are stable. T-max is 98.4, heart rate is 71, respirations 18, blood pressure is 138/86, pulse ox is 96% on room air. HEENT: Head is normocephalic and atraumatic. Conjunctivae pale. Sclerae are anicteric. Pupils are equally reactive to light and accommodation. Examination of the oropharynx reveals poor dentition. No oropharyngeal lesions are noted. NECK: Supple. There is no jugular venous distention. LUNGS: Revealed scattered rhonchi but better than yesterday. CARDIOVASCULAR SYSTEM: Reveals PMI to be in the fifth intercostal space inside the midclavicular line. S1 and S2 are normal. No gallop or murmur is heard. ABDOMEN: Soft and nontender. No rebound, rigidity, or guarding is noted. EXTREMITIES: Reveals no cyanosis, clubbing, or edema. The patient has bilateral nephrostomy tubes with clear urine in the nephrostomy bags. NEUROLOGICAL: Reveals higher functions to be normal. No focal deficits are noted. MEDICATIONS: Reviewed. The patient is on Mucomyst 20% twice a day, lorazepam 0.5 mg every 6 hours p.r.n., Brovana inhale twice a day, MiraLAX 17 mg p.o. twice a day, Pepcid 20 mg daily, morphine 2 mg IV every 4 hours p.r.n. for pain, Phenergan-Codeine every 6 hours as needed for coughing, Protonix 40 mg daily, Pulmicort inhaled twice a day. LABORATORY DATA: TSH is 1.43, CBC and chemistry from yesterday are still holding. ASSESSMENT, NOTES, AND PLAN: The patient has metastatic stage IV cervical carcinoma with occurrence in the mediastinum involving the mediastinum in the right hilar area. Biopsy proven to show metastatic cancer consistent with when she had initially presented eight years ago with stage IIIB non-small cell carcinoma, bilateral hydronephrosis with bilateral nephrostomy tubes draining clear urine now, history of radiation cystitis, status post embolization of the artery to the urinary bladder for hemorrhagic cystitis. Currently, on tranexamic acid on a continuous basis for prevention of bleeding. The patient also has dysphagia, now probably related to the mediastinal disease compressing on the esophagus. The patient may have to be scheduled for barium swallow and possible endoscopy, coronary artery disease with four stents, and primary hypertension. I had a long detailed discussion with the patient, I told her all the consultants involved. We will get Cardiology to clear her in preparation for radiation to the mediastinum. Plan is to get the patient systemic chemotherapy with two drugs that would not affect her kidney function, one of them would be a Avastin and the other one would be a Abraxane. Concern is that the patient also has significant coronary artery disease. We will make sure the patient can be placed on some form of blood thinners without increasing the risk for bleeding. At the same time protecting her from strokes while we start and initiate the Avastin. The patient does have a history of stroke. There is another concern for the administration of these drugs. She has to make a calculated risk, benefit analysis before initiating systemic chemotherapy. The patient is understanding and cognition of these facts, and we will proceed accordingly. We will wait for Cardiology and Gastrointestinal input first before initiating our treatment plan. Routine post-examination instructions have been given to the patient. Labs for a.m. have been requested. Please make note this is a complex patient with multiple comorbid medical issues. Gudelia Ford MD
[2018-04-15] MEDS: POLYETHYLENE GLYCOL 3350 17 GM/Dose PACKET PO SCH (09:50)
[2018-04-15] MEDS ORDERED: Barium Sulfate for Susp 96% w/w 176g Bottle PR ONE (10:26)
--- NOTE | 2018-04-15 10:57 | RAD ---
Date of service: 04/15/2018 HISTORY: Dysphagia. COMPARISON: None. TECHNIQUE: Single contrast esophagram was performed. FINDINGS: Patient tolerated procedure well. ESOPHAGUS: Esophageal mucosa appeared preserved. No evidence of stricture or mass lesion. HIATAL HERNIA: None demonstrated. GASTROESOPHAGEAL REFLUX: Not demonstrated. OTHER FINDINGS: None. IMPRESSION: Unremarkable esophagram.
--- NOTE | 2018-04-15 12:16 | CP.PCM.CON ---
History of Present Illness - History of Present Illness History of Present Illness: Palliative consult requested by Dr Caterina Ford Reason: Goals of care 67 year old female with history of stage III cervical cancer who presented to ED on 04/11/18 with hematuria, progressive dyspnea, weight loss and dysphagia. PET CT done 0n showed significant metastatic adenopathy in right and mid mediastinum extending to right hilum and subcarinal region. FDG + lymph nodes in RU mediastinum abutting right posterior thyroid gland an on left as well. CT Scan abdomen 04/12/18:No changes CT of neck 04/12/18: unremarkable US of esophagus 04/12/18: unremarkable EKG: NSR, possible anterior infarct/ age undetermined Echo 04/13/18: LV normal , EF 55-60%, mod. mitral regurgitation, mild triceps regurgitation, mild/mod, pulmonary hypertension, no pericardial effusion Labs 04/12: Hgb10.4 HCT 32.6, BUN 31, Mending Carrier 2.0.Urine + blood,urobilinogen, leukocytes and bacteria. Urine C/s E Coli/ Enterococcus Faecalis. Blood cultures negative. PMHx:CAD,chronic renal insufficiency, cervical cancer s/p chemo/ radiation, radiation cystitis, GI bleed. PHSx: cardiac stents x4, bilateral nephrostomy tubes, hysterectomy, ankle ORIF Social History: Former heavy smoker, denies alcohol or dug use. Lives alone. Family History: Non contributory Advance Care Planning: The patient has an Advanced Directive, a copy is in the chart. Review of Systems: States she is constipated, denies other complaints at this time. Past Patient History - Infectious Disease Hx of Infectious Diseases: None - Tetanus Immunizations Tetanus Immunization: Unknown - Past Medical History & Family History Past Medical History?: Yes - Past Social History Smoking Status: Former Smoker - CARDIAC Hx Cardiac Disorders: Yes (cad stent x4) Hx Hypercholesterolemia: Yes Hx Hypertension: Yes Hx Mitral Valve Prolapse: Yes Hx Pacemaker: No - PULMONARY Hx Respiratory Disorders: Yes Hx Asthma: No Hx Bronchitis: Yes Hx Sleep Apnea: Yes - NEUROLOGICAL Hx Neurological Disorder: Yes (tympanic tubes) Hx Dizziness: Yes Hx Transient Ischemic Attacks (TIA): Yes (20yrs ago) - HEENT Hx HEENT Problems: Yes (glasses) Other/Comment: left tympanic tubes placed - RENAL Hx Chronic Kidney Disease: Yes Hx Kidney Stones: Yes Hx Renal Failure: Yes Other/Comment: Nephrostomy tubes bilateral, 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 - ENDOCRINE/METABOLIC Hx Endocrine Disorders: No - HEMATOLOGICAL/ONCOLOGICAL Hx Blood Disorders: Yes Hx Anemia: Yes (WITH BLOOD TRANSFUSION) Hx Cancer: Yes (Cervical) Hx Chemotherapy: Yes (and radiation) Hx Metastesis: Yes (chest mass) - INTEGUMENTARY Hx Dermatological Problems: Yes Hx Eczema: Yes Hx Psoriasis: Yes - MUSCULOSKELETAL/RHEUMATOLOGICAL Hx Musculoskeletal Disorders: Yes (r ankle/ R WRIST FX R/T FALL 06/2015) Hx Falls: No Hx Fractures: Yes (right wrist, right ankle) - GASTROINTESTINAL Hx Gastrointestinal Disorders: Yes (GI bleed) Hx Diverticulitis: Yes Hx Gastroesophageal Reflux: Yes - GENITOURINARY/GYNECOLOGICAL Hx Genitourinary Disorders: Yes Hx Hematuria: Yes Hx Urinary Tract Infection: Yes Other/Comment: nephrostomy surgery - PSYCHIATRIC Hx Psychophysiologic Disorder: Yes Hx Anxiety: Yes Hx Depression: Yes Hx Emotional Abuse: No Hx Physical Abuse: No - SURGICAL HISTORY Hx Surgeries: Yes Hx Cardiac Catheterization: Yes Hx Coronary Stent: Yes Hx Hysterectomy: Yes Other/Comment: nephrostomy tubes,CARDIAC STENTS ,HYSTERECTOMY,RIGHT ANKLE FX, - ANESTHESIA Hx Anesthesia: Yes Hx Anesthesia Reactions: Yes (NAUSEA) Hx Malignant Hyperthermia: No Meds Allergies/Adverse Reactions: Allergies Allergy/AdvReac Type Severity Reaction Status Date / Time No Known Allergies Allergy Verified 04/12/18 23:20 - Medications Medications: Current Medications Acetaminophen (Tylenol 325mg Tab) 325 mg PO Q6H PRN PRN Reason: Pain, Mild (1-3) Arformoterol Tartrate (Brovana) 15 mcg IH [id number] [facility] Last Admin: 04/15/18 07:40 Dose: 15 mcg Budesonide (Pulmicort Respules) 0.5 mg IH [id number] [facility] Last Admin: 04/15/18 07:40 Dose: 0.5 mg Famotidine (Pepcid) 20 mg PO DAILY [facility] Last Admin: 04/15/18 09:54 Dose: 20 mg Home Med (Home Med) 2 unit PO BID [facility] Last Admin: 04/15/18 09:50 Dose: 2 unit Lorazepam (Ativan) 0.5 mg IVP Q6 PRN; Protocol PRN Reason: Agitation Last Admin: 04/13/18 01:15 Dose: 0.5 mg Lorazepam (Ativan) 0.5 mg PO Q6 PRN; Protocol PRN Reason: Anxiety/Stress Morphine Sulfate (Morphine) 2 mg IVP Q4H PRN PRN Reason: Pain, severe (8-10) Last Admin: 04/14/18 22:23 Dose: 2 mg Pantoprazole Sodium (Protonix Ec Tab) 40 mg PO 0600 [facility] Last Admin: 04/15/18 05:45 Dose: 40 mg Polyethylene Glycol (Miralax) 17 gm PO BID [facility] Last Admin: 04/15/18 09:50 Dose: 17 gm Promethazine HCl/Codeine (Phenergan/Codeine Oral Syrup) 5 ml PO Q6 PRN PRN Reason: Cough Last Admin: 04/15/18 11:26 Dose: 5 ml Sertraline HCl (Zoloft) 25 mg PO QAM [facility] Last Admin: 04/15/18 09:55 Dose: 25 mg Physical Exam - Constitutional Appears: Cachectic, Chronically Ill - Head Exam Head Exam: NORMOCEPHALIC - Eye Exam Eye Exam: Normal appearance, PERRL - ENT Exam ENT Exam: Mucous Membranes Moist Additional comments: poor dentation - Neck Exam Neck exam: Positive for: Normal Inspection Additional comments: no JVD - Respiratory Exam Respiratory Exam: Rhonchi, NORMAL BREATHING PATTERN - Cardiovascular Exam Cardiovascular Exam: REGULAR RHYTHM, +S1, +S2 - GI/Abdominal Exam GI & Abdominal Exam: Normal Bowel Sounds, Soft - Exam Additional comments: bilateral nephrostomy tubes patent - Extremities Exam Extremities exam: Positive for: pedal pulses present - Neurological Exam Neurological exam: Alert, Oriented x3 - Skin Skin Exam: Pallor - Additional Findings Additional findings: Palliative performance scale rating 50% Results - Vital Signs Recent Vital Signs: Last Vital Signs Temp 97.9 F 04/15/18 08:30 Pulse 96 H 04/15/18 08:30 Resp 18 04/15/18 08:30 BP 152/92 H 04/15/18 08:30 Pulse Ox 96 04/15/18 08:30 - Labs Result Diagrams: 04/14/18 20:30 04/14/18 20:30 Labs: Laboratory Results - last 24 hr 04/14/18 04/14/18 20:30 20:30 WBC 6.1 D RBC 3.49 L Hgb 10.2 L Hct 32.3 L MCV 92.6 MCH 29.2 MCHC 31.6 RDW 14.3 Plt Count 243 MPV 8.5 Gran % 75.0 H Lymph % (Auto) 15.8 L Hill % (Auto) 5.9 Eos % (Auto) 2.8 Baso % (Auto) 0.5 Gran # 4.54 Lymph # (Auto) 1.0 L Hill # (Auto) 0.4 Eos # (Auto) 0.2 Baso # (Auto) 0.03 Sodium 138 Potassium 4.2 Chloride 104 Carbon Dioxide 26 Anion Gap 13 BUN 24 H Creatinine 1.6 H Est GFR ( Amer) 39 Est GFR (Non-Af Amer) 32 Random Glucose 128 H Calcium 9.5 Total Bilirubin 0.1 L AST 23 ALT 17 Alkaline Phosphatase 90 Total Protein 7.4 Albumin 3.9 Globulin 3.5 Albumin/Globulin Ratio 1.1 Assessment & Plan - Assessment and Plan (Free Text) Assessment: 67 year old female with history of CAD, CKD,metastatic cervical cancer hydronephrosis s/p luis m. nephrostomy tubes who is admitted with hematuria, constipation and anemia. The patient is alert and oriented. Affect varies from flat to impatience. I initiated conversation regarding goals of care and advance care planning. The patient understands her medical illness. She verbalized that her cancer has progressed to her lungs, but states that she is unaware of her prognosis. She met with Dr. Aguiar and had mapping /simulation studies done for XRT today. She states he hasn't made up her mind as to whether she will move forward with radiation treatment. She states she has discussed treatment options with oncologist but has not decided whether she will resume chemotherapy. When asked about her quality of life she was evasive. She states that she has family but doesn't think they would be supportive. I attempted to explore options for obtaining support systems within the community, she refused to discuss. States she just wants to go home. Also attempted to discuss advance care planing with her. She has an Advanced Directive which was completed in 2001, one of her surrogates is now . I attempted to affirm resuscitation wishes and establish new health care surrogates. She was not willing to discuss with me and ended the visit by dismissing me. Time spent in goals of care discussion, 20 minutes Plan: Goals of care and advance care planning Cervical cancer: Dr Aguiar and Dr Ford following. Will follow up as OP Psychosocial distress needs: Referred to for assistance with obtaining community support Constipation: GI recs as follows, increase Mirilax to TID, continue PPI, full liquid diet.
--- NOTE | 2018-04-15 13:05 | CP.PCM.PN ---
<Brian Hinds - Last Filed: 04/15/18 19:04> Subjective - Date & Time of Evaluation Date of Evaluation: 04/15/18 Time of Evaluation: 08:40 - Subjective Subjective: Brian Hinds DO, PGY1. GI progress note for Dr Sumner Patient seen and examined at bedside. She had non bloody small bowel movement today but feels constipated. Last BM few days ago. Also c/o dysphasia to solids/liquids Objective - Vital Signs/Intake and Output Vital Signs (last 24 hours): Temp Pulse Resp BP Pulse Ox 97.9 F 96 H 18 152/92 H 96 04/15/18 08:30 04/15/18 08:30 04/15/18 08:30 04/15/18 08:30 04/15/18 08:30 Intake and Output: 04/15/18 04/15/18 06:59 18:59 Intake Total 50 Output Total 1500 Balance -1450 - Medications Medications: Current Medications Acetaminophen (Tylenol 325mg Tab) 325 mg PO Q6H PRN PRN Reason: Pain, Mild (1-3) Arformoterol Tartrate (Brovana) 15 mcg IH [id number] [facility] Last Admin: 04/15/18 07:40 Dose: 15 mcg Budesonide (Pulmicort Respules) 0.5 mg IH [id number] [facility] Last Admin: 04/15/18 07:40 Dose: 0.5 mg Famotidine (Pepcid) 20 mg PO DAILY [facility] Last Admin: 04/15/18 09:54 Dose: 20 mg Home Med (Home Med) 2 unit PO BID [facility] Last Admin: 04/15/18 09:50 Dose: 2 unit Lorazepam (Ativan) 0.5 mg IVP Q6 PRN; Protocol PRN Reason: Agitation Last Admin: 04/13/18 01:15 Dose: 0.5 mg Lorazepam (Ativan) 0.5 mg PO Q6 PRN; Protocol PRN Reason: Anxiety/Stress Morphine Sulfate (Morphine) 2 mg IVP Q4H PRN PRN Reason: Pain, severe (8-10) Last Admin: 04/14/18 22:23 Dose: 2 mg Pantoprazole Sodium (Protonix Ec Tab) 40 mg PO 0600 [facility] Last Admin: 04/15/18 05:45 Dose: 40 mg Polyethylene Glycol (Miralax) 17 gm PO BID [facility] Last Admin: 04/15/18 09:50 Dose: 17 gm Promethazine HCl/Codeine (Phenergan/Codeine Oral Syrup) 5 ml PO Q6 PRN PRN Reason: Cough Last Admin: 04/15/18 11:26 Dose: 5 ml Sertraline HCl (Zoloft) 25 mg PO QAM [facility] Last Admin: 04/15/18 09:55 Dose: 25 mg - Labs Labs: 04/14/18 20:30 04/14/18 20:30 - Constitutional Appears: No Acute Distress, Chronically Ill - Head Exam Head Exam: ATRAUMATIC, NORMAL INSPECTION, NORMOCEPHALIC - Eye Exam Eye Exam: EOMI, Normal appearance, PERRL Pupil Exam: NORMAL ACCOMODATION, PERRL - ENT Exam ENT Exam: Mucous Membranes Moist, Normal Exam - Neck Exam Neck Exam: Full ROM, Normal Inspection. absent: Lymphadenopathy - Respiratory Exam Respiratory Exam: Clear to Ausculation Bilateral, NORMAL BREATHING PATTERN - Cardiovascular Exam Cardiovascular Exam: REGULAR RHYTHM, +S1, +S2. absent: Gallop, Rubs, Murmur - GI/Abdominal Exam GI & Abdominal Exam: Soft, Normal Bowel Sounds. absent: Tenderness, Rebound - Extremities Exam Extremities Exam: Full ROM, Normal Capillary Refill, Normal Inspection. absent: Joint Swelling, Pedal Edema - Back Exam Back Exam: NORMAL INSPECTION Additional comments: bilateral nephrostomy tubes patent - Neurological Exam Neurological Exam: Alert, Awake, CN II-XII Intact, Oriented x3 - Psychiatric Exam Psychiatric exam: Depressed - Skin Skin Exam: Dry, Intact, Pallor Assessment and Plan - Assessment and Plan (Free Text) Assessment: 67 y/o female stage 3 carcinoma of the cervix, CAD s/p stents, CKD, bilateral nephrostomy tubes, rectal ectasia, Watkins's esophagus, CVA, and urinary bladder bleeding s/p radiating cystitis dysphagia to solids/liquids h/o stercoral rectal ulcer with chronic constipation rectal bleeding Plan: -EGD/flex sigmoidscopy -As per 01/08/18 GI note: Recommended outpatient colon/flexsig but patient was not compliant -esophagram: unremarkable -CT neck w/o contrast: unremarkable -continue PPI -increase miralax dose to TID -started colace BID -CT A/P: moderate constipation, no obstruction -continue full liquid diet as tolerated -avoid enema for constipation Case reviewed and plan discussed with Kalie Hinds, <Harvey Sumner V - Last Filed: 04/15/18 23:17> Objective - Vital Signs/Intake and Output Vital Signs (last 24 hours): Temp Pulse Resp BP Pulse Ox 97.9 F 95 H 20 158/90 H 97 04/15/18 08:30 04/15/18 16:58 04/15/18 16:58 04/15/18 16:58 04/15/18 16:58 - Labs Labs: 04/14/18 20:30 04/14/18 20:30 Attending/Attestation - Attestation I have personally seen and examined this patient.: Yes I have fully participated in the care of the patient.: Yes I have reviewed all pertinent clinical information, including history, physical exam and plan: Yes Notes (Text): This is an addendum to GI consult report dictated by the GI Resident.The patient was seen and examined earlier. Medical records, lab studies, imagings were reviewed. Last 24 hours events reviewed. Agreed with the above treatment plan as outlined in GI Resident 's notes with the addition of the following 04/15/18 23:16
[2018-04-15] MEDS ORDERED: POLYETHYLENE GLYCOL 3350 17 GM/Dose PACKET PO PRN (14:00)
--- NOTE | 2018-04-15 15:06 | PN ---
DATE: 04/15/2018 PULMONARY PROGRESS NOTE REFERRING PHYSICIAN: Evaristo Saldivar MD SUBJECTIVE: The patient is sitting up in bed, head of bed elevated. Reports feeling better this morning, still has dry cough. Reports nebulizer treatments are helping. Refused to use CPAP machine last night. No headache, rhinitis, chest pain, abdominal pain, nausea, vomiting, diarrhea, leg pain or leg swelling reported. OBJECTIVE: GENERAL: No acute distress. VITAL SIGNS: Blood pressure 152/92, pulse 96, temperature 97.9, and oxygen saturation 96% on room air. HEENT: Moist mucous membranes. Crowded airway. NECK: Supple. No JVD. LUNGS: Few scattered rhonchi. CARDIOVASCULAR: S1 and S2 notable. ABDOMEN: Soft, nontender, no distention, no organomegaly. EXTREMITIES: No bilateral lower extremity edema. NEUROLOGIC: Awake, alert, verbal, follows commands. MEDICATIONS: Reviewed. Tylenol 225 every 6 hours p.r.n. mild pain, Brovana 15 mcg every 12 hours, Pulmicort 0.5 mg every 12 hours, Colace 100 mg twice a day, Pepcid 20 mg daily, Ativan 0.5 mg IV push every 6 hours p.r.n., morphine 10 mg IV push every 4 hours p.r.n. severe pain, Protonix 40 mg daily, Miralax 17 g three times a day p.r.n., Phenergan with Codeine 5 mL every 6 hours p.r.n., and Zoloft 25 mg in the morning. LABORATORY DATA: Reviewed. No new labs since yesterday. IMPRESSION AND PLAN: Metastatic cervical cancer with disease now involving the lungs, has been on chemotherapy and radiation therapy in the past, renal failure requiring bilateral nephrostomies, coronary artery disease, history of coronary stents, bronchitis, obstructive sleep apnea syndrome, pulmonary hypertension, Watkins's esophagus, slight hematuria still noted to right nephrostomy. Continue inhaled bronchodilators, gastric prophylaxis, deep vein thrombosis prophylaxis. Close monitoring with radiation therapy, which the patient is scheduled to start. The patient refused to use continuous positive airway pressure last night. Continue to encourage continuous positive airway pressure use, sleep apnea precaution, head of bed elevated at 45 degrees. This patient was seen and examined with Dr. Reis. Discussed assessment and plan as described above. Thank you for this consult. We will follow with you. Hira Adame APN Debby Reis MD
[2018-04-15 16:59] VITALS: BP 158/90; PULSE 95; RESP 20; O2SAT 97
--- NOTE | 2018-04-15 21:08 | CON ---
DATE: 04/15/2018 CARDIOLOGY CONSULTATION REASON FOR CONSULTATION: Cardiac evaluation, history of coronary artery disease, history of stent, admitted with metastatic cervical cancer with bleeding per urethra and mediastinal mass possibly metastasis. 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 Recently the patient was seen in office and ordered to stress test and echo, but the patient did not show up. Recently, admitted now to the [facility] with metastatic cancer and hematuria bleeding per vagina, possible mediastinal mass and recurrent of cervical cancer. PAST MEDICAL HISTORY: Significant for stage IIIB carcinoma of the cervix giving radiation and at one point, the patient has vesicovaginal fistula and history of coronary artery disease. Past history is significant for cervical cancer with complications of vesicovaginal fistula of bladder and rectum, history of bilateral nephrostomy, history of coronary artery disease, history of stents, past hypertension, hyperlipidemia, renal insufficiency, history of anemia, history of nephrostomy before. Previous cardiac workup as follows, the patient had a stress test on 05/15/2016, that shows that showed equivocal shifting is best position can be ruled out, ejection 63% dated 05/15/2016, history of last echo day before yesterday that revealed ejection fraction 55% to 60%, [id number] mitral regurgitation, mild tricuspid regurgitation, RV systolic pressure 49 and [id number] pulmonary hypertension. SOCIAL HISTORY: Denies any history of alcohol abuse. CURRENT MEDICATION: The patient is taking at home vitamin E, Zoloft, Pepcid and ascorbic acid. ALLERGIES: NO KNOWN DRUG ALLERGIES. REVIEW OF SYSTEMS: As per HPI. Complaining of bleeding per rectum and eager to get the cardiac workup, 505 possible. So, the patient can be started chemo. Denies any chest pain, shortness of breath, or any palpitation. PHYSICAL EXAMINATION: GENERAL: Height of the patient 5 feet 6 inches. Weight of the patient 147 pound. Body mass index 27.3 kg/m2. VITAL SIGNS: Rest of the vitals, temperature afebrile, heart rate 96 and blood pressure 150/92. HEENT: PERRLA. Extraocular muscles intact. NECK: Supple. No carotid bruit or thyromegaly. CHEST: Clear to auscultation. HEART: S1 and S2, regular. ABDOMEN: Soft. EXTREMITIES: Clubbing and cyanosis negative. LABORATORY DATA: WBC 6, hemoglobin 10.2, hematocrit 32.9 and platelet count 243. Chemistry shows sodium 130, potassium 4.0, chloride 104, carbon dioxide 26, anion gap of 13, BUN 24 and creatinine 1.6. IMPRESSION: A 67-year-old female with past medical history significant for coronary artery disease, status post bare-metal stent in the past, history of stress test equivocal, refused cardiac catheterization, admitted with recurrence of stage IIIB cervical cancer with a mediastinal mass and bleeding per rectum and bleeding up her vagina and urethra, history of vesicovaginal fistula in the past, history of repair. RECOMMENDATION: We will follow the echo, was done as mentioned yesterday. The patient had an echo that shows preserved LV function, ejection fraction 55%-60%, mild tricuspid regurgitation, RV systolic pressure 49, [id number] mitral regurgitation. We will start low dose beta-theodore, continue SHAGUFTA inhibitors since the patient is on chemo and radiation. We will get MUGA scan to baseline. The patient may needs aggressive chemotherapy. We will cancel the repeat echo, the patient had echo done yesterday. We will get a baseline because the patient may needs aggressive chemotherapy. We will get a baseline MUGA scan. Interim, we will get lipid profile, TSH, hemoglobin A1C. We will follow with you. Thank you, Dr. Ford, for providing us the opportunity in taking care of the patient, Glenna Kitchen. Debby Oliva MD
--- NOTE | 2018-04-16 03:56 | PN ---
DATE: 04/15/2018 ONCOLOGY PROGRESS NOTE LOCATION: The patient is in room 368. SUBJECTIVE: The patient is sitting in the bed. Head end elevated. Reports feeling better this morning. She has a dry cough. Reports the nebulizer treatments are not helping. No headache. No rhinitis, chest pain, abdominal pain, nausea, vomiting, diarrhea, leg pain, or leg swelling reported. The patient had been seen by the radiation oncologist and already had done for possible radiation treatment planning. OBJECTIVE: GENERAL: The patient is in no acute distress. VITAL SIGNS: Stable. Blood pressure is 152/92, pulse is 96, T-max is 97.8, and O2 sat is 96% on room air. HEENT: Head is normocephalic and atraumatic. Conjunctivae pale. Sclerae anicteric. Pupils are equal and reactive to light and accommodation. Examination of the oropharynx reveals poor dentition. No oropharyngeal lesions are noted. NECK: Supple. There is no adenopathy. No jugular venous distention noted. LUNGS: Reveal scattered wheezes. CARDIOVASCULAR SYSTEM: Reveals S1 and S2 to be normal. No gallop or murmur is heard. ABDOMEN: Soft. Nontender. No rebound, rigidity or guarding is noted. EXTREMITIES: Reveal no significant lower extremity edema. NEUROLOGIC: Higher functions are normal. No focal deficits are noted. The patient is depressed and at least at this point in time quite scarred about what may have to be done for her in view of her recurrence of cancer. MEDICATIONS: Reviewed. Tylenol 625 mg every 6 hours p.r.n., Brovana 15 mcg every 12 hours, Pulmicort 0.05 mg every 12 hours, Colace 100 mg twice a day, Pepcid 20 mg daily, Ativan 0.5 mg IV push every 6 hours as needed, morphine 10 mg IV push every 4 hours p.r.n. for pain, Protonix 40 mg daily, MiraLax 17 g three times daily, Phenergan With Codeine 5 mL every 6 hours p.r.n., and Zoloft 25 mg in the a.m. LABORATORY DATA: Reviewed. No new labs since yesterday. ASSESSMENT, NOTES AND PLAN: The patient has metastatic cervical cancer with significant mediastinal and hilar nodes. Clearly, the need for systemic treatment is indicated especially in view of the coughing and more importantly now progressive odynophagia. I have spoken with Dr. Ashley who has recommended the patient to have a barium swallow and then may be subsequent endoscopy. I spoke with who has ordered an echocardiogram and based on that, we would recommend further as to how to manage the patient in case we plan to give the patient systemic chemotherapy with a combination of drugs such as Avastin and Abraxane, and the other thing that we want to discuss is what are risk factors with possible radiation to the mediastinum and cardiac risk factors especially when the patient is post bare-metal stents and is not on any antiplatelet agents with the risk of either clotting or stroke would be. In the meantime, I told the patient that she will continue to inhale bronchodilators, gastric prophylaxis, deep venous thrombosis prophylaxis and close monitoring when the radiation is started. I had a lengthy discussion with the patient's sister who is back from [place] and assuring that she is going to stay with the patient for the next few weeks or the treatment has been planned. The patient is pretty adamant and angry about the whole situation. I hope that her sister is able to calm her down. However, I would be happy to do based on what the findings are. Psychiatry has also been asked to see the patient to help with at least with her emotions and her mental breakdown that she may be having as a result of the findings that she may have recurrent cancer. I spent a lot of time talking to the sister and the patient and spent more than 45 minutes in correlating all the data and giving it to them in a hopeful way, but we were telling them that if the cancer was bad, then she would need additional treatment. Please make a note this is a complex patient with multiple comorbid medical issues, and we will not be able to just venture to start the treatment blindly without getting the input from all the concerned consultants involved. Gudelia Ford MD
== END 2018-04-15 19:11 | disposition left against medical advice (07) | DRG 181 ==
LOC: ED 17:17 → ERH 21:04 → UNDOADMIN 21:04 → ERH 22:59 → 3RNO 04-13 00:03
PROVIDERS: ADMIT Family Medicine; ATTEND Family Medicine
DX: C78.1 Secondary malignant neoplasm of mediastinum (principal); I31.3 Pericardial effusion (noninflammatory); C79.51 Secondary malignant neoplasm of bone; K63.3 Ulcer of intestine; C78.00 Secondary malignant neoplasm of unspecified lung; K62.5 Hemorrhage of anus and rectum; N13.6 Pyonephrosis; K22.70 Barrett's esophagus without dysplasia; Z85.41 Personal history of malignant neoplasm of cervix uteri; I25.10 Atherosclerotic heart disease of native coronary artery without angina pectoris; Z95.5 Presence of coronary angioplasty implant and graft; M43.16 Spondylolisthesis, lumbar region; R31.9 Hematuria, unspecified; Z93.6 Other artificial openings of urinary tract status; L98.429 Non-pressure chronic ulcer of back with unspecified severity; K59.09 Other constipation; K21.9 Gastro-esophageal reflux disease without esophagitis; K44.9 Diaphragmatic hernia without obstruction or gangrene; Z92.21 Personal history of antineoplastic chemotherapy; Z92.3 Personal history of irradiation; F32.9 Major depressive disorder, single episode, unspecified; N18.9 Chronic kidney disease, unspecified; R06.02 Shortness of breath; R63.4 Abnormal weight loss; R06.09 Other forms of dyspnea; D64.9 Anemia, unspecified; E78.00 Pure hypercholesterolemia, unspecified; E78.5 Hyperlipidemia, unspecified; F40.240 Claustrophobia; G47.33 Obstructive sleep apnea (adult) (pediatric); I12.9 Hypertensive chronic kidney disease with stage 1 through stage 4 chronic kidney disease, or unspecified chronic kidney disease; I27.20 Pulmonary hypertension, unspecified; I08.1 Rheumatic disorders of both mitral and tricuspid valves; Z86.73 Personal history of transient ischemic attack (TIA), and cerebral infarction without residual deficits; Z87.09 Personal history of other diseases of the respiratory system; K59.00 Constipation, unspecified; M47.9 Spondylosis, unspecified; R47.02 Dysphasia; Z79.899 Other long term (current) drug therapy; Z87.891 Personal history of nicotine dependence; Z90.710 Acquired absence of both cervix and uterus; B96.20 Unspecified Escherichia coli [E. coli] as the cause of diseases classified elsewhere; B95.2 Enterococcus as the cause of diseases classified elsewhere

== ENCOUNTER 2018-04-22 14:50 | Inpatient (IN) | payer MEDICARE, OTHER ==
[2018-04-22] MEDS ORDERED: Albuterol 0.083% Inhal Sol (2.5 mg/3 mL) UD IH STA ×2 (16:01→17:02)
--- NOTE | 2018-04-22 16:05 | ED PDOC ---
Arrival/HPI - General Chief Complaint: Shortness Of Breath Time Seen by Provider: 04/22/18 15:24 Historian: Patient - History of Present Illness Narrative History of Present Illness (Text): 04/22/18 16:06 67-year-old female presents today complaining of worsening shortness of breath and dyspnea on exertion. Patient denies fevers or chills. She denies chest pain. Patient denies lower leg swelling. Patient states when she was in the hospital last week symptoms had improved but when she went home she found the symptoms were worsening and she found herself becoming more short of breath on exertion. Patient denies dizziness or weakness. No abdominal pain. Patient denies urinary symptoms. Patient states on previous admission she was having hematuria but that has resolved. No vomiting or diarrhea. Past Medical History - Provider Review Nursing Documentation Reviewed: Yes - Travel History Have you recently traveled outside [place] w/in the past 3 mons?: No - Infectious Disease Hx of Infectious Diseases: None - Tetanus Immunization Tetanus Immunization: Unknown - Cardiac Hx Cardiac Disorders: Yes (cad stent x4) Hx Hypertension: Yes Hx Mitral Valve Prolapse: Yes Hx Pacemaker: No - Pulmonary Hx Respiratory Disorders: Yes Hx Asthma: No Hx Bronchitis: Yes Hx Sleep Apnea: Yes - Neurological Hx Neurological Disorder: Yes (tympanic tubes) Hx Dizziness: Yes Hx Transient Ischemic Attacks (TIA): Yes (20yrs ago) - HEENT Hx HEENT Disorder: Yes (glasses) Other/Comment: left tympanic tubes placed - Renal Hx Renal Disorder: Yes Hx Kidney Stones: Yes Hx Renal Failure: Yes Other/Comment: Nephrostomy tubes bilateral, 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 - Endocrine/Metabolic Hx Endocrine Disorders: No - Hematological/Oncological Hx Blood Disorders: Yes Hx Anemia: Yes (WITH BLOOD TRANSFUSION) Hx Cancer: Yes (Cervical with mets) Hx Chemotherapy: Yes (and radiation) Hx Metastasis: Yes (chest mass) - Integumentary Hx Dermatological Disorder: Yes Hx Eczema: Yes Hx Psoriasis: Yes - Musculoskeletal/Rheumatological Hx Musculoskeletal Disorders: Yes (r ankle/ R WRIST FX R/T FALL 06/2015) Hx Falls: No Hx Fractures: Yes (right wrist, right ankle) - Gastrointestinal Hx Gastrointestinal Disorders: Yes (GI bleed) Hx Diverticulitis: Yes Hx Gastroesophageal Reflux: Yes - Genitourinary/Gynecological Hx Genitourinary Disorders: Yes Hx Hematuria: Yes Hx Urinary Tract Infection: Yes Other/Comment: nephrostomy surgery - Psychiatric Hx Psychophysiologic Disorder: Yes Hx Anxiety: Yes Hx Depression: Yes Hx Emotional Abuse: No Hx Physical Abuse: No Hx Substance Use: No - Surgical History Hx Cardiac Catheterization: Yes Hx Coronary Stent: Yes Hx Hysterectomy: Yes Other/Comment: nephrostomy tubes,CARDIAC STENTS ,HYSTERECTOMY,RIGHT ANKLE FX, - Anesthesia Hx Anesthesia: Yes Hx Anesthesia Reactions: Yes (NAUSEA) Hx Malignant Hyperthermia: No - Suicidal Assessment Feels Threatened In Home Enviroment: No Family/Social History - Physician Review Nursing Documentation Reviewed: Yes Family/Social History: Unknown Family HX Smoking Status: Former Smoker Hx Alcohol Use: No Hx Substance Use: No Hx Substance Use Treatment: No Allergies/Home Meds Allergies/Adverse Reactions: Allergies No Known Allergies Allergy (Verified 04/12/18 23:20) Home Medications: Home Meds Medication Instructions Recorded Confirmed Oxycodone HCl/Acetaminophen 1 tab PO Q6H PRN 02/12/15 04/12/18 [Percocet 5-325 mg Tablet] Sertraline [Zoloft] 25 mg PO QAM 04/06/15 04/12/18 Ergocalciferol (Vitamin D2) 50,000 iu PO FRI 11/08/15 04/12/18 [Vitamin D2] Tranexamic Acid [Lysteda] 2 tab PO BID 11/08/15 04/12/18 Ascorbic Acid [Vitamin C] 1 tab PO DAILY 12/12/16 04/12/18 Esomeprazole Magnesium [Nexium] 20 mg PO DAILY 10/23/17 04/12/18 Famotidine [Pepcid] 20 mg PO DAILY 12/23/17 04/12/18 Promethazine HCl/Codeine 1 tsp PO Q6H PRN 03/28/18 04/12/18 [Prometh-Codein 6.25-10 mg/5 ml] Vitamin E 1,000 unit PO DAILY 03/28/18 04/12/18 Review of Systems - Review of Systems Constitutional: absent: Fatigue, Fevers ENT: absent: Sore Throat Respiratory: SOB, Cough Cardiovascular: absent: Chest Pain, Palpitations Gastrointestinal: absent: Abdominal Pain, Nausea, Vomiting Genitourinary Female: absent: Dysuria, Frequency Musculoskeletal: absent: Arthralgias Skin: absent: Rash, Pruritis Neurological: absent: Headache, Dizziness Physical Exam Vital Signs Reviewed: Yes Vital Signs Temp Pulse Resp BP Pulse Ox 04/22/18 15:12 97.4 F L 94 H 18 120/67 96 Temperature: Afebrile Blood Pressure: Normal Pulse: Regular Respiratory Rate: Normal Appearance: Positive for: Well-Appearing, Non-Toxic, Comfortable Pain Distress: None Mental Status: Positive for: Alert and Oriented X 3 - Systems Exam Head: Present: Atraumatic Mouth: Present: Moist Mucous Membranes Neck: Present: Normal Range of Motion Respiratory/Chest: Present: Good Air Exchange, Wheezes, Rhonchi, Tachypneic. No: Clear to Auscultation, Respiratory Distress Cardiovascular: Present: Regular Rate and Rhythm. No: Tachycardic Abdomen: No: Tenderness, Distention, Rebound, Guarding Back: Present: Normal Inspection Upper Extremity: Present: Normal ROM Lower Extremity: Present: Normal ROM. No: Edema Neurological: Present: GCS=15 Skin: Present: Warm, Dry, Normal Color. No: Rashes Psychiatric: Present: Alert, Oriented x 3 Medical Decision Making ED Course and Treatment: 04/22/18 16:10 67yr old female with hx of static cancer complaining of worsening cough and wheezing and shortness of breath. pt states cough is productive with white sputum. CBC wnl CMP cr; 1.9 bnp: 2020 trop; wnl lactate: 0.8 cxr; no infiltrate ekg; normal sinus rhythm at [address] elevations QTC 454 blood cultures pending lasix 20mg ordered IV; pt refused. pt reassessment; pt feeling better after albuterol. denies cp. UA; + leukocytes, + tNTC wbcs. All results discussed in depth with the patient. rocephin ordered for UTI. Case discussed in depth with Dr. landers observational status admission Impression: Shortness of breath, elevated BNP, urinary tract infection Admit observational status - RAD Interpretation Radiology Orders: 04/22/18 15:43 CHEST PORTABLE [RAD] Stat Disposition/Present on Arrival - Present on Arrival Any Indicators Present on Arrival: Yes History of DVT/PE: No History of Uncontrolled Diabetes: No Urinary Catheter: Yes History of Decub. Ulcer: No History Surgical Site Infection Following: None - Disposition Have Diagnosis and Disposition been Completed?: Yes Diagnosis: Shortness of breath, Cough, Elevated brain natriuretic peptide (BNP) level, Urinary tract infection Disposition: HOSPITALIZED Disposition Time: 16:14 Patient Plan: Observation, Telemetry Patient Problems: Current Active Problems Problem Status Onset Cough Acute Elevated brain natriuretic peptide (BNP) level Acute Shortness of breath Acute Condition: FAIR
--- NOTE | 2018-04-22 16:27 | RAD ---
Date of service: 04/22/2018 HISTORY: SOB/cough COMPARISON: 03/29/2018 single-view chest. 04/12/2018 CT thorax FINDINGS: LUNGS: No active pulmonary disease. PLEURA: No significant pleural effusion identified, no pneumothorax apparent. CARDIOVASCULAR: No atherosclerotic calcification present PICC line in satisfactory position OSSEOUS STRUCTURES: No significant abnormalities. VISUALIZED UPPER ABDOMEN: Normal. OTHER FINDINGS: Mediastinal adenopathy better appreciated on CT of the thorax. IMPRESSION: No active disease. No significant interval change compared to the prior examination(s).
[2018-04-22 16:49] LABS: VENOUS BLOOD GAS BASE EXCESS -0.6 mmol/L (0.0-2.0); VENOUS BLOOD GAS PO2 54 mm/Hg (30-55); VENOUS BLOOD PH 7.27 (7.32-7.43)
[2018-04-22] MEDS ORDERED: Morphine 2 mg/ml ISec IVP STA ×2 (17:02→22:31)
[2018-04-22 17:04] LABS: BASO # 0.02 K/mm3 (0.0-2.0); BASO % 0.3 % (0.0-3.0); EOS # 0.1 (0.0-0.7); GRAN # 5.78 (1.4-6.5); GRAN % 81.3 % (50.0-68.0); LYMPH # 0.7 (1.2-3.4); LYMPH % 9.4 % (22.0-35.0); MEAN CELL VOLUME 93.9 fl (80.0-105.0); MEAN CORPUSCULAR HEMOGLOBIN 29.1 pg (25.0-35.0); MEAN PLATELET VOLUME 9.4 fl (7.0-11.0); MONO # 0.5 (0.1-0.6); RBC 3.44 10^6/uL (3.5-6.1); RED CELL DISTRIBUTION WIDTH 14.3 % (11.5-14.5); WHITE BLOOD COUNT 7.1 10^3/uL (4.5-11.0)
[2018-04-22 17:06] LABS: B-TYPE NATRIURETIC PEPTIDE 2020 pg/mL (0-450); TROPONIN I < 0.01 ng/mL
[2018-04-22 17:08] LABS: ALB/GLOB RATIO 1.1 (1.1-1.8); ALBUMIN 4.1 g/dL (3.0-4.8); ALT/SGPT 27 U/L (7-56); AST/SGOT 31 U/L (14-36); BLOOD UREA NITROGEN 25 mg/dL (7-21); CALCIUM 9.4 mg/dL (8.4-10.5); GFR NON-AFRICAN AMERICAN 26
[2018-04-22 17:19] LABS: INR 1.07; PARTIAL THROMBOPLASTIN TIME 30.8 Seconds (25.1-36.5); PROTHROMBIN TIME 12.2 SECONDS (9.4-12.5)
[2018-04-22 18:13] LABS: URINE BILIRUBIN NEGATIVE (NEGATIVE); URINE BLOOD SMALL (NEGATIVE); URINE GLUCOSE (UA) NEGATIVE (NEGATIVE); URINE LEUKOCYTE ESTERASE MODERATE Leu/uL (NEGATIVE); URINE PROTEIN 30 mg/dL (<30 mg/dL); URINE UROBILINOGEN 0.2 E.U./dL (<1 E.U./dL)
[2018-04-22 18:19] LABS: URINE APPEARANCE CLOUDY (CLEAR); URINE COLOR YELLOW (YELLOW)
[2018-04-22 18:25] LABS: URINE BACTERIA MANY /hpf; URINE WBC TNTC /hpf (0-6)
[2018-04-22] MEDS ORDERED: cefTRIAXone 1 gm 1 GM/100 ML BAG IVPB STA (21:40)
[2018-04-23 02:17] VITALS: BMI 20.2
--- NOTE | 2018-04-23 04:11 | CON ---
DATE OF CONSULTATION: 04/22/2018 REFERRING PHYSICIAN: Evaristo Saldivar MD REASON FOR CONSULTATION: Cough, shortness of breath, chronic lung disease. HISTORY OF PRESENT ILLNESS: This is a 67-year-old female, known history of coronary artery disease, history of coronary stent, hyperlipidemia, valvular heart disease, also has a history of sleep apnea syndrome and noncompliant with CPAP, renal insufficiency, history of renal stone, has bilateral nephrostomy tubes, cervical cancer with metastatic disease, most recently found to have metastatic disease to the lung with external compression of the bronchus. Last admission, she was off her radiation and restarted chemotherapy. Apparently, she left the hospital and now comes back with cough and shortness of breath. No hemoptysis, no hematemesis, no hematuria, no diarrhea reported. PAST MEDICAL HISTORY: As per history of present illness. FAMILY HISTORY: No significant cardiopulmonary disease reported. SOCIAL HISTORY: Former smoker. Denies any alcohol use. HOME MEDICATIONS: Vitamin E 1000 units daily, also on tranexamic 2 tablets twice a day, Zoloft 25 mg daily, promethazine with codeine, also getting oxycodone p.r.n., Pepcid 20 mg daily, Nexium 20 mg daily, vitamin D 50,000 units, vitamin C 1 tablet daily. ALLERGIES: NONE KNOWN. REVIEW OF SYSTEMS: No headache or rhinitis. Has cough and shortness of breath. No chest pain. No nausea, no vomiting, no diarrhea. Bilateral nephrostomy tubes working well. No dysuria. No leg pain or leg swelling. PHYSICAL EXAMINATION: GENERAL: Mild distress secondary to cough and shortness of breath. VITAL SIGNS: Temperature is 98, heart rate is 97, respiratory rate is 18, blood pressure 124/72, pulse ox 99% on nasal cannula. HEENT: Moist mucous membranes. NECK: Supple. No JVD. LUNGS: Few scattered rhonchi. HEART: S1 and S2. ABDOMEN: Soft, nontender, no organomegaly. EXTREMITIES: No edema. NEUROLOGIC: Awake, alert and follows simple commands. LABORATORY DATA: Hemoglobin 10.0, hematocrit 32.3, WBC 7.1, platelet count is 308,000. INR 1.07. PTT 31. VBGs show pH 7.27, pCO2 of 60, O2 is 54. Sodium 140, potassium 3.9, chloride 105, bicarbonate 27, BUN 25, creatinine 1.9, glucose 95, calcium is 9.4. AST 31, ALT 27, alk phos is 99. LDH 508. ProBNP 2020. Albumin is 4.1. TSH 1.43. Chest x-ray done today shows no active disease. No change from previous x-rays. IMPRESSION AND PLAN: Metastatic cervical cancer, mets to the lung with external compression to the bronchus; renal failure, requiring nephrostomy; coronary artery disease; history of coronary stent; bronchitis; obstructive sleep apnea syndrome, refusing to use CPAP; pulmonary hypertension; Watkins esophagus. Pulmonary point of view, agree with bronchodilator. Keep head at 45 degrees. We will add Zithromax 500 mg daily. Gastric prophylaxis, DVT prophylaxis. Will need further aggressive care if the patient and family wishes for it including radiation and chemotherapy. Thank you and we will follow with you. Debby Reis MD
[2018-04-23] MEDS: Pantoprazole 40 mg EC Tab PO SCH (06:34)
[2018-04-23] MEDS: Arformoterol 15 mcg/2 ml Inh Sol IH SCH ×2 (07:47→19:38)
[2018-04-23] MEDS: Budesonide 0.25 mg/2 ml Inhal Susp UD IH SCH ×2 (07:47→19:39)
[2018-04-23 09:24] LABS: BASO # 0.03 K/mm3 (0.0-2.0); BASO % 0.5 % (0.0-3.0); EOS # 0.1 (0.0-0.7); EOS % 2.4 % (1.5-5.0); GRAN # 4.57 (1.4-6.5); GRAN % 79.6 % (50.0-68.0); HEMOGLOBIN 9.4 g/dL (12.0-16.0); LYMPH # 0.6 (1.2-3.4); LYMPH % 11.1 % (22.0-35.0); MEAN CELL VOLUME 93.1 fl (80.0-105.0); MEAN CORPUSCULAR HEMOGLOBIN 28.3 pg (25.0-35.0); MEAN CORPUSCULAR HGB CONC 30.4 g/dl (31.0-37.0); MONO # 0.4 (0.1-0.6); MONO % 6.4 % (1.0-6.0); RBC 3.32 10^6/uL (3.5-6.1); RED CELL DISTRIBUTION WIDTH 14.6 % (11.5-14.5); WHITE BLOOD COUNT 5.8 10^3/uL (4.5-11.0)
[2018-04-23 09:32] LABS: ALB/GLOB RATIO 1.1 (1.1-1.8); ALBUMIN 3.8 g/dL (3.0-4.8); ALT/SGPT 22 U/L (7-56); AST/SGOT 27 U/L (14-36); BLOOD UREA NITROGEN 25 mg/dL (7-21); CALCIUM 9.3 mg/dL (8.4-10.5); GFR NON-AFRICAN AMERICAN 28; HDL CHOLESTEROL 36 mg/dL (29-60)
[2018-04-23 09:35] LABS: IRON 22 ug/dL (45-180)
[2018-04-23 09:42] LABS: LDL CHOLESTEROL 69 mg/dL (0-129); TROPONIN I < 0.01 ng/mL
[2018-04-23 09:46] LABS: % IRON SATURATION 9 % (20-55); TOTAL IRON BINDING CAPACITY 246 ug/dL (265-497)
[2018-04-23 09:52] LABS: FREE T4 1.01 ng/dL (0.78-2.19)
[2018-04-23] MEDS ORDERED: Non Formulary Medication (Esomeprazole Magnesium [Nexium] 20 MG) PO SCH (10:00)
[2018-04-23] MEDS: POLYETHYLENE GLYCOL 3350 17 GM/Dose PACKET PO SCH ×3 (10:48→18:46)
[2018-04-23] MEDS: Oxycodone/Acetaminophen 5/325 mg Tab PO PRN ×2 (10:49→22:02)
[2018-04-23] MEDS: Enoxaparin 30 mg Syringe SC SCH (10:52)
[2018-04-23] MEDS: TRANEXAMIC ACID 650 MG PO SCH ×2 (10:52→18:43)
--- NOTE | 2018-04-23 11:06 | CARD ---
APPROVED REPORT Date of service: 04/22/2018 EKG Measurement Heart [id number] <Conclusion> Normal sinus rhythm Minimal voltage criteria for LVH, may be normal variant Cannot rule out Anterior infarct, age undetermined Abnormal ECG
--- NOTE | 2018-04-23 13:06 | PN ---
DATE: 04/23/2018 PULMONARY PROGRESS NOTE REFERRING PHYSICIAN: Evaristo Saldivar MD SUBJECTIVE: The patient is sitting up in bed, no acute distress. No overnight events reported. The patient reports still having cough and periods of shortness of breath. No headache, rhinitis, chest pain, abdominal pain, nausea, vomiting, diarrhea, leg pain, or leg swelling reported. OBJECTIVE: GENERAL: No acute distress. VITAL SIGNS: Blood pressure 130/88, pulse 82, temperature 98, and oxygen saturation 95%. HEENT: Moist mucous membranes. NECK: Supple. No JVD. LUNGS: Few scattered rhonchi bilaterally. CARDIOVASCULAR: S1 and S2 audible. ABDOMEN: Soft, nontender. No distention. No organomegaly. EXTREMITIES: No bilateral lower extremity edema. NEUROLOGIC: Awake, alert, verbal, follows commands. MEDICATIONS: Reviewed. Brovana 15 mcg every 12 hours, vitamin C 1000 mg p.o. daily, Zithromax 500 mg p.o. daily, Tessalon Perles 100 mg 3 times a day, Pulmicort 0.25 mg inhalation every 12 hours, Colace 100 mg twice a day, Lovenox 30 mg subcutaneous daily, ergocalciferol 50,000 units weekly, Percocet 5/325 mg one tab every 6 hours p.r.n. moderate pain, Protonix 40 mg daily, MiraLax 17 g twice a day, Lyrica 25 mg twice a day, Phenergan with Codeine 5 mL every 6 hours p.r.n., Zoloft 25 mg in the morning. LABORATORY DATA: Reviewed. WBC 5.8, RBC 3.32, hemoglobin 9.4, hematocrit 30.9 and platelets 265. Sodium 140, potassium 4.3, chloride 106, carbon dioxide 28, anion gap 10, BUN 25, creatinine 1.8, GFR 28, random glucose 110, calcium 9.3, phosphorous 4.2, magnesium 2.2, iron 22, TIBC 246, percent saturation 9, total bilirubin 0.2. AST 27, ALT 22, alkaline phosphatase 89, troponin less than 0.01, total protein 7.3, albumin 3.8, globulin 3.6, albumin-globulin ratio 1.1. Triglycerides 134, cholesterol 153, LDL cholesterol 69, HDL cholesterol 36, free T4 1.01, TSH 1.09. Influenza type A and B negative. ProBNP is 2020. Electrocardiogram shows normal sinus rhythm. IMPRESSION AND PLAN: Metastatic cervical cancer with metastasis to the lung with external compression to the bronchus; renal failure requiring nephrostomy; coronary artery disease; history of coronary stent; bronchitis; obstructive sleep apnea syndrome, the patient is refusing to use CPAP machine; pulmonary hypertension; Watkins's esophagus. Pulmonary point of view, continue inhaled bronchodilators, sleep apnea precaution, keep head of bed elevated 45 degrees. Continue antibiotic therapy, gastric prophylaxis, deep venous thrombosis prophylaxis. Echocardiogram from 04/13/2018 reviewed shows ejection fraction 58%, right ventricular systolic pressure 49, some diastolic dysfunction. We believe elevated proBNP is related to mild cardiac failure as well as to combination of renal failure. Further aggressive care will be needed if the patient and family wish for it, which could include radiation and chemotherapy. This patient was seen and examined with Dr. Reis. Discussed assessment and plan as described above. Thank you for this consult. We will follow with you. Hira Adame APN Debby Reis MD
--- NOTE | 2018-04-23 13:42 | CP.PCM.PN ---
Subjective - Date & Time of Evaluation Date of Evaluation: 04/23/18 Time of Evaluation: 01:40 - Subjective Subjective: Ms Kitchen is a 67 year old female who is known to our department. We saw her during her last admission and had simulated her for radiation to the mediastinal/hilar nodes. At the time, she wanted to hold off on starting radiation. She is currently admitted again. She complains of dyspnea on exertion and cough. Since we last saw her, she is amenable to starting radiation. We will reviewed the radiation risks and benefits with her and her family. She will be coming down tomorrow to start her treatment. Objective - Vital Signs/Intake and Output Vital Signs (last 24 hours): Temp Pulse Resp BP Pulse Ox 97.9 F 84 20 142/83 95 04/23/18 12:00 04/23/18 12:00 04/23/18 12:00 04/23/18 12:00 04/23/18 05:56 Intake and Output: 04/23/18 04/23/18 06:59 18:59 Intake Total 1040 Balance 1040 - Medications Medications: Current Medications Arformoterol Tartrate (Brovana) 15 mcg IH [id number] [facility] Last Admin: 04/23/18 07:47 Dose: 15 mcg Ascorbic Acid (Vitamin C 500 Mg Tab) 1,000 mg PO DAILY [facility] Last Admin: 04/23/18 10:49 Dose: 1,000 mg Azithromycin (Zithromax) 500 mg PO DAILY [facility]; Protocol Last Admin: 04/23/18 10:48 Dose: 500 mg Benzonatate (Tessalon Perles) 100 mg PO TID [facility] Last Admin: 04/23/18 10:49 Dose: 100 mg Budesonide (Pulmicort Respules) 0.25 mg IH [id number] [facility] Last Admin: 04/23/18 07:47 Dose: 0.25 mg Docusate Sodium (Colace) 100 mg PO BID [facility] Last Admin: 04/23/18 10:49 Dose: 100 mg Enoxaparin Sodium (Lovenox) 30 mg SC DAILY [facility]; Protocol Last Admin: 04/23/18 10:52 Dose: Not Given Ergocalciferol (Drisdol 50,000 Intl Units Cap) 1 cap PO FRI [facility] Home Med (Home Med) 2 unit PO BID [facility] Last Admin: 04/23/18 10:52 Dose: 2 unit Oxycodone/Acetaminophen (Percocet 5/325 Mg Tab) 1 tab PO Q6H PRN PRN Reason: Pain, moderate (4-7) Stop: 04/25/18 22:15 Last Admin: 04/23/18 10:49 Dose: 1 tab Pantoprazole Sodium (Protonix Ec Tab) 40 mg PO 0600 [facility] Last Admin: 04/23/18 06:34 Dose: 40 mg Polyethylene Glycol (Miralax) 17 gm PO BID [facility] Last Admin: 04/23/18 10:48 Dose: 17 gm Pregabalin (Lyrica) 25 mg PO BID [facility] Last Admin: 04/23/18 10:48 Dose: 25 mg Promethazine HCl/Codeine (Phenergan/Codeine Oral Syrup) 5 ml PO Q6H PRN PRN Reason: Cough Sertraline HCl (Zoloft) 25 mg PO QAM [facility] Last Admin: 04/23/18 10:49 Dose: 25 mg - Labs Labs: 04/23/18 08:45 04/23/18 08:45 PT 12.2 SECONDS (9.4-12.5) 04/22/18 16:38 INR 1.07 04/22/18 16:38 APTT 30.8 Seconds (25.1-36.5) 04/22/18 16:38
--- NOTE | 2018-04-23 14:31 | CP.PCM.PCO ---
Physician Communication Note - Physician Communication Note Physician Communication Note: Lizeth Burden consulted to eval patient for possible radiation
[2018-04-23] MEDS: Promethazine/Cod 6.25mg-10mg/5ml Syr UD PO PRN ×2 (14:54→22:02)
[2018-04-23 17:24] LABS: FOLATE 10.3 ng/mL
[2018-04-24] MEDS: Pantoprazole 40 mg EC Tab PO SCH (07:17)
[2018-04-24] MEDS: Budesonide 0.25 mg/2 ml Inhal Susp UD IH SCH ×2 (07:59→20:54)
[2018-04-24] MEDS: Arformoterol 15 mcg/2 ml Inh Sol IH SCH ×2 (07:59→20:53)
[2018-04-24] MEDS: POLYETHYLENE GLYCOL 3350 17 GM/Dose PACKET PO SCH ×2 (09:12→18:39)
[2018-04-24] MEDS: Enoxaparin 30 mg Syringe SC SCH (09:17)
[2018-04-24] MEDS: Promethazine/Cod 6.25mg-10mg/5ml Syr UD PO PRN ×2 (09:17→23:08)
[2018-04-24] MEDS: TRANEXAMIC ACID 650 MG PO SCH ×2 (09:18→18:38)
--- NOTE | 2018-04-24 13:53 | CP.PCM.PCO ---
Physician Communication Note - Physician Communication Note Physician Communication Note: patient for possible radiation 04/25/18 post revisit with Lizeth Burden
--- NOTE | 2018-04-24 15:07 | PN ---
DATE: 04/24/2018 PULMONARY PROGRESS NOTE REFERRING PHYSICIAN: Evaristo Saldivar MD SUBJECTIVE: The patient is sitting up in bed. No acute distress. No overnight events reported. The patient was suppose to start radiation therapy today. The patient reports that she has concerns regarding esophagitis with starting radiation, so she is hesitant to start radiation today. She does report feeling better, was taking nebulizer treatment, decrease in shortness of breath and cough. No headache, rhinitis, chest pain, abdominal pain, nausea, vomiting, diarrhea, leg pain or leg swelling reported. PHYSICAL EXAMINATION GENERAL: No acute distress. VITAL SIGNS: Blood pressure 130/78, pulse 77, and temperature 97.4. HEENT: Moist mucous membranes. NECK: Supple. No JVD. LUNGS: Few scattered rhonchi bilaterally. CARDIOVASCULAR: S1 and S2 audible. ABDOMEN: Soft, nontender. No distention. No organomegaly. EXTREMITIES: No bilateral lower extremity edema. NEUROLOGICAL: Awake, alert, verbal, and follows commands MEDICATIONS: Reviewed. Brovana 15 mcg every 12 hours, vitamin C 1000 mg daily, Zithromax 500 mg daily, Tessalon Perles 100 mg 3 times a day, Pulmicort 0.25 mg every 12 hours, Colace 100 mg twice a day, Lovenox 30 mg daily, ergocalciferol 1 cap weekly, Percocet 5/325 mg one tab every 6 hours p.r.n., Protonix 40 mg daily, MiraLax 17 grams twice a day, Lyrica 25 mg twice a day, Phenergan/codeine 5 mL every 6 hours p.r.n., and Zoloft 25 mg daily. LABORATORY DATA: Reviewed. Urine culture final shows E. coli and Enterococcus faecalis. IMPRESSION AND PLAN: Metastatic cervical cancer with metastasis to the lung with external compression to the bronchus; renal failure requiring nephrostomy tube; coronary artery disease; history of coronary stent; bronchitis; obstructive sleep apnea syndrome; pulmonary hypertension; Watkins's esophagus. The patient is presently refusing to use continuous positive airway pressure machine, continue inhaled bronchodilators, sleep apnea precaution, and head of bed elevated at 45 degrees. Gastric prophylaxis and deep venous thrombosis prophylaxis. The patient to have radiation. We will start the patient Carafate 1 gram a.c. and at bedtime. We will discontinue Zithromax due to current urine culture which shows urinary tract infection. We will start nitrofurantoin 100 mg twice a day and Unasyn 3 grams intravenous every 6 hours. Due to creatinine clearance will discontinue Nitrofurantoin and start Levaquin 250mg daily. Monitor the patient for esophagitis while on radiation. This patient was seen and examined with Dr. Reis. Discussed assessment and plan as described above. Thank you for this consult. We will follow with you. Hira Adame APN Debby Reis MD [facility]
[2018-04-24] MEDS: Sucralfate 1 gm/10 ml Oral Susp UD PO SCH ×2 (18:39→21:29)
[2018-04-24] MEDS ORDERED: Morphine 2 mg/ml ISec IVP ONE (21:15)
[2018-04-25] MEDS: Sucralfate 1 gm/10 ml Oral Susp UD PO SCH ×4 (05:53→21:20)
[2018-04-25] MEDS: Pantoprazole 40 mg EC Tab PO SCH (05:53)
[2018-04-25] MEDS: Budesonide 0.25 mg/2 ml Inhal Susp UD IH SCH ×2 (07:47→19:35)
[2018-04-25] MEDS: Arformoterol 15 mcg/2 ml Inh Sol IH SCH ×2 (07:47→19:35)
--- NOTE | 2018-04-25 08:39 | CP.PCM.HP ---
History of Present Illness - History of Present Illness History of Present Illness: PGY-2 heme/onc H&P Ms Kitchen is a 67 year old female with history of stage III cervical cancer status post chemoradiation, CAD status post stent, CRI, h/o nephrostomy tubes, radiation cystitis, psoriasis, and depression who was admitted for dyspnea on exertion and cough. Patient denies fevers or chills. She denies chest pain. Soto anderson denies lower leg swelling. Patient states when she was in the hospital last week symptoms had improved but when she went home she found the symptoms were worsening and she found herself becoming more short of breath on exertion. Patient denies dizziness or weakness. No abdominal pain. Patient denies urinary symptoms. PMHx:CAD,chronic renal insufficiency, cervical cancer s/p chemo/ radiation, radiation cystitis, GI bleed. PHSx: cardiac stents x4, bilateral nephrostomy tubes, hysterectomy, ankle ORIF Social History: Former heavy smoker, denies alcohol or dug use. Lives alone. Family History: Non contributory Present on Admission - Present on Admission Any Indicators Present on Admission: No Review of Systems - Review of Systems All systems: reviewed and no additional remarkable complaints except (as stated in HPI) Past Patient History - Infectious Disease Hx of Infectious Diseases: None - Tetanus Immunizations Tetanus Immunization: Unknown - Past Medical History & Family History Past Medical History?: Yes - Past Social History Smoking Status: Former Smoker - CARDIAC Hx Cardiac Disorders: Yes (cad stent x4) Hx Hypertension: Yes Hx Mitral Valve Prolapse: Yes Hx Pacemaker: No - PULMONARY Hx Respiratory Disorders: Yes Hx Asthma: No Hx Bronchitis: Yes Hx Sleep Apnea: Yes - NEUROLOGICAL Hx Neurological Disorder: Yes (tympanic tubes) Hx Dizziness: Yes Hx Transient Ischemic Attacks (TIA): Yes (20yrs ago) - HEENT Hx HEENT Problems: Yes (glasses) Other/Comment: left tympanic tubes placed - RENAL Hx Chronic Kidney Disease: Yes Hx Kidney Stones: Yes Hx Renal Failure: Yes Other/Comment: Nephrostomy tubes bilateral, 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 - ENDOCRINE/METABOLIC Hx Endocrine Disorders: No - HEMATOLOGICAL/ONCOLOGICAL Hx Blood Disorders: Yes Hx Anemia: Yes (WITH BLOOD TRANSFUSION) Hx Cancer: Yes (Cervical with mets) Hx Chemotherapy: Yes (and radiation) Hx Metastesis: Yes (chest mass) - INTEGUMENTARY Hx Dermatological Problems: Yes Hx Eczema: Yes Hx Psoriasis: Yes - MUSCULOSKELETAL/RHEUMATOLOGICAL Hx Musculoskeletal Disorders: Yes (r ankle/ R WRIST FX R/T FALL 06/2015) Hx Falls: No Hx Fractures: Yes (right wrist, right ankle) - GASTROINTESTINAL Hx Gastrointestinal Disorders: Yes (GI bleed) Hx Diverticulitis: Yes Hx Gastroesophageal Reflux: Yes - GENITOURINARY/GYNECOLOGICAL Hx Genitourinary Disorders: Yes Hx Hematuria: Yes Hx Urinary Tract Infection: Yes Other/Comment: nephrostomy surgery - PSYCHIATRIC Hx Psychophysiologic Disorder: Yes Hx Anxiety: Yes Hx Depression: Yes Hx Emotional Abuse: No Hx Physical Abuse: No Hx Substance Use: No - SURGICAL HISTORY Hx Cardiac Catheterization: Yes Hx Coronary Stent: Yes Hx Hysterectomy: Yes Other/Comment: nephrostomy tubes,CARDIAC STENTS ,HYSTERECTOMY,RIGHT ANKLE FX, - ANESTHESIA Hx Anesthesia: Yes Hx Anesthesia Reactions: Yes (NAUSEA) Hx Malignant Hyperthermia: No Meds Allergies/Adverse Reactions: Allergies Allergy/AdvReac Type Severity Reaction Status Date / Time No Known Allergies Allergy Verified 04/12/18 23:20 Physical Exam - Constitutional Appears: Well, Non-toxic, No Acute Distress - Head Exam Head Exam: ATRAUMATIC, NORMAL INSPECTION - Eye Exam Eye Exam: EOMI, Normal appearance, PERRL. absent: Scleral icterus - ENT Exam ENT Exam: Mucous Membranes Moist - Respiratory Exam Respiratory Exam: Clear to Auscultation Bilateral, NORMAL BREATHING PATTERN. absent: Wheezes - Cardiovascular Exam Cardiovascular Exam: REGULAR RHYTHM, +S1, +S2. absent: JVD - GI/Abdominal Exam GI & Abdominal Exam: Normal Bowel Sounds, Soft. absent: Tenderness - Extremities Exam Extremities exam: Positive for: normal inspection - Neurological Exam Neurological exam: Alert, Oriented x3 - Psychiatric Exam Psychiatric exam: Normal Affect, Normal Mood - Skin Skin Exam: Intact, Normal Color, Warm Results - Vital Signs Recent Vital Signs: Last Vital Signs Temp 98.5 F 04/25/18 06:00 Pulse 80 04/25/18 06:00 Resp 20 04/25/18 06:00 BP 130/82 04/25/18 06:00 Pulse Ox 95 04/25/18 06:00 - Labs Result Diagrams: 04/23/18 08:45 04/23/18 08:45 Assessment & Plan - Assessment and Plan (Free Text) Plan: Ms Kitchen is a 67 year old female with history of stage III cervical cancer status post chemoradiation, CAD status post stent, CRI, h/o nephrostomy tubes, radiation cystitis, psoriasis, and depression who was admitted for dyspnea on exertion and cough: stage III cervical cancer -patient for radiation 04/25/[address] Aguiar -percocet 1 tab po q6h prn -pregabalin 25mg po bid Cough/CASTANON -negative for flu swab, normal wbc, afebrile -empiric coverage with augmentin po q12 (started 04/25/18) and levaquin 250mg po qd (started 04/25/18) -tessalon perles 100mg po tid, phenergan 5ml po q6h prn -brovana 15mcg ih q12h, budesonide 0.25mg ih q12h UTI -asymptomatic -ua + for leukocyte esterase and nitrates -empiric coverage with augmentin po q12 (started 04/25/18) and levaquin 250mg po qd (started 04/25/18) Depression -continue home med zolot 25mg po qd CKD -Cr at her baseline of 1.5-2 -watch for upticks Anemia -Hgb at her baseline ~9 -iron studies indicate anemia of chronic disease CAD status post stent -no active issues PPX -lovenox 30mg sc qd -colace 100mg po bid -protonix 40mg po qd -continue home med vitamin c 1000mg po qd -HHD Case discussed with Dr Ford
[2018-04-25] MEDS: Amoxicillin-Clav 500-125 mg Tab PO SCH ×2 (09:53→21:20)
[2018-04-25] MEDS: TRANEXAMIC ACID 650 MG PO SCH ×2 (09:54→17:10)
[2018-04-25] MEDS: POLYETHYLENE GLYCOL 3350 17 GM/Dose PACKET PO SCH ×2 (09:54→17:10)
[2018-04-25] MEDS: Enoxaparin 30 mg Syringe SC SCH (09:54)
[2018-04-25] MEDS: Promethazine/Cod 6.25mg-10mg/5ml Syr UD PO PRN (11:13)
--- NOTE | 2018-04-25 12:50 | CP.PCM.PCO ---
Physician Communication Note - Physician Communication Note Physician Communication Note: radiation today
--- NOTE | 2018-04-25 13:18 | PN ---
DATE: 04/25/2018 PULMONARY PROGRESS NOTE REFERRING PHYSICIAN: Dr. Saldivar SUBJECTIVE: Patient is sitting up in bed, no acute distress. No overnight events reported. Patient reports she is due for radiation therapy today, reports feeling better. Has improvement in cough and shortness of breath. No headache, rhinitis, chest pain, abdominal pain, nausea, vomiting, diarrhea, leg pain, or leg swelling reported. OBJECTIVE GENERAL: No acute distress. VITAL SIGNS: Blood pressure 130/82, pulse 80, temperature 98.5, oxygen saturation 95%. HEENT: Moist mucous membranes. NECK: Supple. No JVD. LUNGS: Scattered rhonchi bilaterally. CARDIOVASCULAR: S1 and S2 audible. ABDOMEN: Soft and nontender. No distention. No organomegaly. EXTREMITIES: No bilateral lower extremity edema. NEUROLOGIC: Awake, alert, and verbal. Follows commands. MEDICATIONS: Reviewed. Augmentin 1 tab every 12 hours, Brovana 15 mcg inhalation every 12 hours, vitamin C 1000 mg daily, Tessalon Perles 100 mg 3 times a day, Pulmicort 0.25 mg inhalation every 12 hours, Colace 100 mg twice a day, Lovenox 30 mg subcutaneous daily, ergocalciferol 1 cap weekly, Levaquin 250 mg daily, Percocet 5/225 mg every 6 hours p.r.n., Protonix 40 mg daily, MiraLax 17 g twice a day, Lyrica 25 mg twice a day, Phenergan with Codeine 5 mL every 6 hours p.r.n., Zoloft 25 mg daily, Carafate 1 g 4 times a day. LABORATORY DATA: Reviewed. No new labs since yesterday. IMPRESSION AND PLAN: Urinary tract infection, metastatic cervical cancer with metastasis to the lung, no external compression to the bronchus, renal failure requiring nephrostomy tube, coronary artery disease, history of coronary stents, bronchitis, obstructive sleep apnea syndrome, pulmonary hypertension, Watkins esophagus. Patient refuses to use CPAP machine at this time, continue inhaled bronchodilators. Sleep apnea precaution, head of bed elevated at 45 degrees, deep venous thrombosis prophylaxis, gastric prophylaxis. Patient is scheduled to start radiation therapy. Monitor the patient for esophagitis during radiation. The patient was seen and examined with Dr. Reis. Discussed assessment and plan as described above. Thank you for this consult. We will follow with you. Hira Adame APN Debby Reis MD [facility]
[2018-04-25 16:39] LABS: PH,URINE 6.5 (4.7-8.0); URINE APPEARANCE SLIGHT-CLOUDY (CLEAR); URINE BILIRUBIN NEGATIVE (NEGATIVE); URINE BLOOD SMALL (NEGATIVE); URINE COLOR LIGHT YELLOW (YELLOW); URINE GLUCOSE (UA) NEGATIVE (NEGATIVE); URINE LEUKOCYTE ESTERASE LARGE Leu/uL (NEGATIVE); URINE PROTEIN 100 mg/dL (<30 mg/dL); URINE UROBILINOGEN 0.2 E.U./dL (<1 E.U./dL)
[2018-04-25 16:42] LABS: URINE BACTERIA MANY /hpf; URINE EPITHELIAL CELLS 0 - 2 /hpf (0-5)
[2018-04-25] MEDS ORDERED: Menthol/Methyl Salicylate Ointment(1 oz) TOP PRN (20:03)
[2018-04-25] MEDS ORDERED: Morphine 2 mg/ml ISec IVP STA (20:05)
[2018-04-25] MEDS: Saliva Substitute 44.3 ML PO SCH ×2 (21:20→23:04)
[2018-04-26] MEDS: Promethazine/Cod 6.25mg-10mg/5ml Syr UD PO PRN ×2 (05:31→18:46)
[2018-04-26] MEDS: Sucralfate 1 gm/10 ml Oral Susp UD PO SCH ×5 (05:31→22:42)
[2018-04-26] MEDS: Pantoprazole 40 mg EC Tab PO SCH (05:31)
[2018-04-26 07:13] LABS: BASO # 0.05 K/mm3 (0.0-2.0); BASO % 1.1 % (0.0-3.0); EOS # 0.3 (0.0-0.7); EOS % 6.1 % (1.5-5.0); GRAN # 3.34 (1.4-6.5); GRAN % 70.8 % (50.0-68.0); HEMOGLOBIN 9.8 g/dL (12.0-16.0); LYMPH # 0.6 (1.2-3.4); LYMPH % 13.1 % (22.0-35.0); MEAN CELL VOLUME 94.5 fl (80.0-105.0); MEAN CORPUSCULAR HEMOGLOBIN 28.6 pg (25.0-35.0); MEAN CORPUSCULAR HGB CONC 30.2 g/dl (31.0-37.0); MEAN PLATELET VOLUME 9.3 fl (7.0-11.0); MONO # 0.4 (0.1-0.6); MONO % 8.9 % (1.0-6.0); RBC 3.43 10^6/uL (3.5-6.1); RED CELL DISTRIBUTION WIDTH 14.8 % (11.5-14.5); WHITE BLOOD COUNT 4.7 10^3/uL (4.5-11.0)
[2018-04-26] MEDS: Budesonide 0.25 mg/2 ml Inhal Susp UD IH SCH ×2 (07:47→19:20)
[2018-04-26] MEDS: Arformoterol 15 mcg/2 ml Inh Sol IH SCH ×2 (07:47→19:20)
[2018-04-26 07:49] LABS: ALB/GLOB RATIO 1.1 (1.1-1.8); ALBUMIN 3.8 g/dL (3.0-4.8); CALCIUM 9.4 mg/dL (8.4-10.5)
--- NOTE | 2018-04-26 08:02 | CP.PCM.PN ---
Subjective - Date & Time of Evaluation Date of Evaluation: 04/26/18 Time of Evaluation: 07:57 - Subjective Subjective: PGY-2 heme/onc progress note No acute events overnight. Patient started radiation yesterday - stated she felt weak after the radiation. She denied localized pain, fevers, shortness of breath. Eating well and no GI/urinary issues. Objective - Vital Signs/Intake and Output Vital Signs (last 24 hours): Temp Pulse Resp BP Pulse Ox 97.3 F L 84 20 160/95 H 96 04/26/18 06:00 04/26/18 06:00 04/26/18 06:00 04/26/18 06:00 04/26/18 06:00 Intake and Output: 04/26/18 04/26/18 06:59 18:59 Intake Total 420 Output Total 700 Balance -280 - Medications Medications: Current Medications Arformoterol Tartrate (Brovana) 15 mcg IH [id number] [facility] Last Admin: 04/26/18 07:47 Dose: 15 mcg Ascorbic Acid (Vitamin C 500 Mg Tab) 1,000 mg PO DAILY [facility] Last Admin: 04/25/18 09:53 Dose: 1,000 mg Benzonatate (Tessalon Perles) 100 mg PO TID [facility] Last Admin: 04/25/18 17:10 Dose: 100 mg Budesonide (Pulmicort Respules) 0.25 mg IH [id number] [facility] Last Admin: 04/26/18 07:47 Dose: 0.25 mg Camphor/Menthol (Bengay) 0.5 gm TOP QID PRN PRN Reason: Bladder Spasm Last Admin: 04/25/18 21:18 Dose: 0.5 gm Docusate Sodium (Colace) 100 mg PO BID [facility] Last Admin: 04/25/18 17:10 Dose: 100 mg Enoxaparin Sodium (Lovenox) 30 mg SC DAILY [facility]; Protocol Last Admin: 04/25/18 09:54 Dose: 30 mg Ergocalciferol (Drisdol 50,000 Intl Units Cap) 1 cap PO FRI [facility] Home Med (Home Med) 2 unit PO BID [facility] Last Admin: 04/25/18 17:10 Dose: 2 unit Piperacillin Sod/Tazobactam Sod (Zosyn 3.375 In Ns 100ml) 100 mls @ 25 mls/hr IVPB Q12 [facility]; Protocol Stop: 05/03/18 10:01 Levofloxacin (Levaquin) 250 mg PO DAILY [facility]; Protocol Last Admin: 04/25/18 09:53 Dose: 250 mg Pantoprazole Sodium (Protonix Ec Tab) 40 mg PO 0600 [facility] Last Admin: 04/26/18 05:31 Dose: 40 mg Polyethylene Glycol (Miralax) 17 gm PO BID [facility] Last Admin: 04/25/18 17:10 Dose: 17 gm Pregabalin (Lyrica) 25 mg PO BID [facility] Last Admin: 04/25/18 17:10 Dose: 25 mg Promethazine HCl/Codeine (Phenergan/Codeine Oral Syrup) 5 ml PO Q6H PRN PRN Reason: Cough Last Admin: 04/26/18 05:31 Dose: 5 ml Saliva Substitute (Saliva Substitute) 0.5 ml PO QID [facility] Last Admin: 04/25/18 23:04 Dose: Not Given Sertraline HCl (Zoloft) 25 mg PO QAM [facility] Last Admin: 04/25/18 09:53 Dose: 25 mg Sucralfate (Carafate Oral Susp) 1 gm PO 0630,1130,1630,2200 [facility] Last Admin: 04/26/18 05:31 Dose: 1 gm - Labs Labs: 04/26/18 06:30 04/26/18 06:30 PT 12.2 SECONDS (9.4-12.5) 04/22/18 16:38 INR 1.07 04/22/18 16:38 APTT 30.8 Seconds (25.1-36.5) 04/22/18 16:38 - Additional Findings Additional findings: - Constitutional Appears: Well, Non-toxic, No Acute Distress - Head Exam Head Exam: ATRAUMATIC, NORMAL INSPECTION - Eye Exam Eye Exam: EOMI, Normal appearance, PERRL. absent: Scleral icterus - ENT Exam ENT Exam: Mucous Membranes Moist - Respiratory Exam Respiratory Exam: Clear to Auscultation Bilateral, NORMAL BREATHING PATTERN. absent: Wheezes - Cardiovascular Exam Cardiovascular Exam: REGULAR RHYTHM, +S1, +S2. absent: JVD - GI/Abdominal Exam GI & Abdominal Exam: Normal Bowel Sounds, Soft. absent: Tenderness - Extremities Exam Extremities exam: Positive for: normal inspection - Neurological Exam Neurological exam: Alert, Oriented x3 - Psychiatric Exam Psychiatric exam: Normal Affect, Normal Mood - Skin Skin Exam: Intact, Normal Color, Warm Assessment and Plan - Assessment and Plan (Free Text) Plan: Ms Kitchen is a 67 year old female with history of stage III cervical cancer status post chemoradiation, CAD status post stent, CRI, h/o nephrostomy tubes, radiation cystitis, psoriasis, and depression who was admitted for dyspnea on exertion and cough: stage III cervical cancer w/ mets to lung -patient began radiation 04/25/[address] Aguiar - expected length to be approx 2 weeks -percocet 1 tab po q6h prn -pregabalin 25mg po bid Cough/CASTANON -negative for flu swab, normal wbc, afebrile -empiric coverage with augmentin po q12 (started 04/25/18) and levaquin 250mg po qd (started 04/25/18) * augmentin and levaquin both discontinued, now on zosyn started 04/26/18 -tessalon perles 100mg po tid, phenergan 5ml po q6h prn -brovana 15mcg ih q12h, budesonide 0.25mg ih q12h UTI -asymptomatic -ua + for leukocyte esterase and nitrates -empiric coverage with augmentin po q12 (started 04/25/18) and levaquin 250mg po qd (started 04/25/18) Depression -continue home med zoloft 25mg po qd CKD -Cr at her baseline of 1.5-2 -watch for upticks -bilateral nephrostomy tubes Anemia -Hgb at her baseline ~9 -iron studies indicate anemia of chronic disease CAD status post stent -no active issues PPX -lovenox 30mg sc qd -colace 100mg po bid -protonix 40mg po qd -continue home med vitamin c 1000mg po qd -HHD Case discussed with Dr Ford
[2018-04-26] MEDS: Piperacillin/Tazobact 3.375 gm 100 ML IVPB SCH ×2 (09:53→22:42)
[2018-04-26] MEDS: TRANEXAMIC ACID 650 MG PO SCH ×3 (09:54→18:42)
[2018-04-26] MEDS: Ergocalciferol 50,000 Intl Units Cap PO SCH (09:55)
[2018-04-26] MEDS: POLYETHYLENE GLYCOL 3350 17 GM/Dose PACKET PO SCH ×3 (09:55→17:14)
[2018-04-26] MEDS: Enoxaparin 30 mg Syringe SC SCH (09:56)
[2018-04-26] MEDS: Saliva Substitute 44.3 ML PO SCH ×4 (09:58→22:43)
--- NOTE | 2018-04-26 11:36 | PN ---
DATE: 04/26/2018 PULMONARY PROGRESS NOTE REFERRING PHYSICIAN: Evaristo Saldivar MD SUBJECTIVE: The patient is sitting up in bed. No acute distress. No overnight events reported. Reports cough and shortness of breath is much better. The patient had radiation therapy yesterday. No headache, rhinitis, chest pain, abdominal pain, nausea, vomiting, diarrhea, leg pain or leg swelling reported. OBJECTIVE GENERAL: No acute distress. VITAL SIGNS: Blood pressure 149/84, pulse 98, temperature 98 and oxygen saturation 96% on room air. HEENT: Moist mucous membranes. NECK: Supple. No JVD. LUNGS: Scattered rhonchi bilaterally. CARDIOVASCULAR: S1 and S2 audible. ABDOMEN: Soft and nontender. No distention. No organomegaly. EXTREMITIES: No bilateral lower extremity edema. NEUROLOGIC: Awake, alert, and verbal. Follows commands. MEDICATIONS: Reviewed. Brovana 15 mcg every 12 hours, vitamin C 1000 mg daily, Tessalon Perles 100 mg 3 times a day, Pulmicort 0.25 mg inhalation every 12 hours, topically 4 times a day p.r.n., Colace 100 mg twice a day, Lovenox 30 mg daily, ergocalciferol 50,000 units weekly, Levaquin 250 mg daily, Protonix 40 mg daily, Zosyn 3.375 mg every 12 hours, MiraLax 17 g twice a day, Lyrica 25 mg twice a day, Phenergan with codeine 5 mL every 6 hours p.r.n., saliva substitute 4 times a day, Zoloft 25 mg daily and Carafate 1 g 4 times a day. LABORATORY DATA: Reviewed. WBC 4.7, RBC 3.43, hemoglobin 9.8, hematocrit 32.4 and platelets 285. Sodium 141, potassium 4.2, chloride 105, carbon dioxide 30, anion gap 10, BUN 20, creatinine 1.5, GFR is 35, random glucose 94 and calcium 9.4. Iron 22, TIBC 246 and percent saturation 9. Total bilirubin 0.3, AST 32, ALT 17, alkaline phosphatase 94, total protein 7.4, albumin 3.8, globulin 3.6 and albumin-globulin ratio 1.1. Urine culture final no growth. IMPRESSION AND PLAN: Metastatic cervical cancer with metastasis to the lung with external compression to the bronchus; renal failure requiring nephrostomy tube; coronary artery disease; history of coronary stent; bronchitis; obstructive sleep apnea syndrome; pulmonary hypertension; Watkins's esophagus. The patient is refusing to use continuous positive airway pressure machine. At this time continue inhaled bronchodilators, sleep apnea precaution, head of bed elevated at 45 degrees, deep venous thrombosis prophylaxis, gastric prophylaxis. The patient is currently on radiation therapy. We will discontinue Levaquin, continue antibiotic therapy per Infectious Disease. Monitor the patient for esophagitis during radiation. This patient was seen and examined with Dr. Reis. Discussed assessment and plan as described above. Thank you for this consult. We will follow with you. Hira Adame APN Debby Reis MD [facility]
--- NOTE | 2018-04-26 14:07 | CP.PCM.CON ---
<Nadir Douglas - Last Filed: 04/26/18 14:03> History of Present Illness - History of Present Illness History of Present Illness: ID Consult Note 67 year old female with past medical history of Cervical cancer stage 3 with mets to the lung, b/l nephrostomy tubes, CAD, HTN, CKD stage 3, and psoriasis presents to the hospital for worsening shortness of breath. Patient has intermittent shortness of breath over the past year which she has received multiple treatments and diagnoses. Patient states her symptoms became worse and presented to the hospital. She recently came to the hospital to for these symptoms but went home shortly afterward. Denies chest pain, nausea, vomiting, diarrhea, fever, chills, dysuria. Medical Hx: As above Surgical Hx: Cardiac stent placement x4, bilateral nephrostomy tubes, hysterectomy Social History: Former tobacco use, denies alcohol or illicit drug use. Family Hx: Denies Allergies: NKDA Medications: Reviewed, as per MAR Review of Systems - Review of Systems Review of Systems: 12 point ROS as per HPI, otherwise negative Past Patient History - Infectious Disease Hx of Infectious Diseases: None - Tetanus Immunizations Tetanus Immunization: Unknown - Past Medical History & Family History Past Medical History?: Yes - Past Social History Smoking Status: Former Smoker - CARDIAC Hx Cardiac Disorders: Yes (cad stent x4) Hx Hypertension: Yes Hx Mitral Valve Prolapse: Yes Hx Pacemaker: No - PULMONARY Hx Respiratory Disorders: Yes Hx Asthma: No Hx Bronchitis: Yes Hx Sleep Apnea: Yes - NEUROLOGICAL Hx Neurological Disorder: Yes (tympanic tubes) Hx Dizziness: Yes Hx Transient Ischemic Attacks (TIA): Yes (20yrs ago) - HEENT Hx HEENT Problems: Yes (glasses) Other/Comment: left tympanic tubes placed - RENAL Hx Chronic Kidney Disease: Yes Hx Kidney Stones: Yes Hx Renal Failure: Yes Other/Comment: Nephrostomy tubes bilateral, 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 - ENDOCRINE/METABOLIC Hx Endocrine Disorders: No - HEMATOLOGICAL/ONCOLOGICAL Hx Blood Disorders: Yes Hx Anemia: Yes (WITH BLOOD TRANSFUSION) Hx Cancer: Yes (Cervical with mets) Hx Chemotherapy: Yes (and radiation) Hx Metastesis: Yes (chest mass) - INTEGUMENTARY Hx Dermatological Problems: Yes Hx Eczema: Yes Hx Psoriasis: Yes - MUSCULOSKELETAL/RHEUMATOLOGICAL Hx Musculoskeletal Disorders: Yes (r ankle/ R WRIST FX R/T FALL 06/2015) Hx Falls: No Hx Fractures: Yes (right wrist, right ankle) - GASTROINTESTINAL Hx Gastrointestinal Disorders: Yes (GI bleed) Hx Diverticulitis: Yes Hx Gastroesophageal Reflux: Yes - GENITOURINARY/GYNECOLOGICAL Hx Genitourinary Disorders: Yes Hx Hematuria: Yes Hx Urinary Tract Infection: Yes Other/Comment: nephrostomy surgery - PSYCHIATRIC Hx Psychophysiologic Disorder: Yes Hx Anxiety: Yes Hx Depression: Yes Hx Emotional Abuse: No Hx Physical Abuse: No Hx Substance Use: No - SURGICAL HISTORY Hx Cardiac Catheterization: Yes Hx Coronary Stent: Yes Hx Hysterectomy: Yes Other/Comment: nephrostomy tubes,CARDIAC STENTS ,HYSTERECTOMY,RIGHT ANKLE FX, - ANESTHESIA Hx Anesthesia: Yes Hx Anesthesia Reactions: Yes (NAUSEA) Hx Malignant Hyperthermia: No Meds Allergies/Adverse Reactions: Allergies Allergy/AdvReac Type Severity Reaction Status Date / Time No Known Allergies Allergy Verified 04/12/18 23:20 - Medications Medications: Current Medications Arformoterol Tartrate (Brovana) 15 mcg IH [id number] [facility] Last Admin: 04/26/18 07:47 Dose: 15 mcg Ascorbic Acid (Vitamin C 500 Mg Tab) 1,000 mg PO DAILY [facility] Last Admin: 04/26/18 09:55 Dose: 1,000 mg Benzonatate (Tessalon Perles) 100 mg PO TID [facility] Last Admin: 04/26/18 09:55 Dose: 100 mg Budesonide (Pulmicort Respules) 0.25 mg IH [id number] [facility] Last Admin: 04/26/18 07:47 Dose: 0.25 mg Camphor/Menthol (Bengay) 0.5 gm TOP QID PRN PRN Reason: Bladder Spasm Last Admin: 04/25/18 21:18 Dose: 0.5 gm Docusate Sodium (Colace) 100 mg PO BID [facility] Last Admin: 04/26/18 09:56 Dose: 100 mg Enoxaparin Sodium (Lovenox) 30 mg SC DAILY [facility]; Protocol Last Admin: 04/26/18 09:56 Dose: 30 mg Ergocalciferol (Drisdol 50,000 Intl Units Cap) 1 cap PO FRI [facility] Last Admin: 04/26/18 09:55 Dose: 1 cap Home Med (Home Med) 2 unit PO BID [facility] Last Admin: 04/26/18 09:54 Dose: 2 unit Piperacillin Sod/Tazobactam Sod (Zosyn 3.375 In Ns 100ml) 100 mls @ 25 mls/hr IVPB Q12 [facility]; Protocol Stop: 05/03/18 10:01 Pantoprazole Sodium (Protonix Ec Tab) 40 mg PO 0600 [facility] Last Admin: 04/26/18 05:31 Dose: 40 mg Polyethylene Glycol (Miralax) 17 gm PO BID [facility] Last Admin: 04/26/18 09:55 Dose: 17 gm Pregabalin (Lyrica) 25 mg PO BID [facility] Last Admin: 04/26/18 09:56 Dose: 25 mg Promethazine HCl/Codeine (Phenergan/Codeine Oral Syrup) 5 ml PO Q6H PRN PRN Reason: Cough Last Admin: 04/26/18 05:31 Dose: 5 ml Saliva Substitute (Saliva Substitute) 0.5 ml PO QID [facility] Last Admin: 04/26/18 09:58 Dose: 0.5 ml Sertraline HCl (Zoloft) 25 mg PO QAM [facility] Last Admin: 04/26/18 09:55 Dose: 25 mg Sucralfate (Carafate Oral Susp) 1 gm PO 0630,1130,1630,2200 [facility] Last Admin: 04/26/18 11:20 Dose: 1 gm Physical Exam - Constitutional Appears: Non-toxic, In Acute Distress - Head Exam Head Exam: ATRAUMATIC, NORMAL INSPECTION, NORMOCEPHALIC - ENT Exam ENT Exam: Mucous Membranes Moist - Respiratory Exam Respiratory Exam: Rhonchi (Mild b/l), Wheezes - Cardiovascular Exam Cardiovascular Exam: RRR, +S1, +S2 - GI/Abdominal Exam GI & Abdominal Exam: Normal Bowel Sounds, Soft. absent: Tenderness - Extremities Exam Extremities exam: Positive for: normal inspection. Negative for: pedal edema - Neurological Exam Neurological exam: Alert, Oriented x3 - Psychiatric Exam Psychiatric exam: Normal Affect, Normal Mood - Skin Skin Exam: Intact, Normal Color, Warm Results - Vital Signs Recent Vital Signs: Last Vital Signs Temp 98.1 F 04/26/18 12:00 Pulse 92 H 04/26/18 12:00 Resp 18 04/26/18 12:00 BP 151/93 H 04/26/18 12:00 Pulse Ox 96 04/26/18 06:00 - Labs Result Diagrams: 04/26/18 06:30 04/26/18 06:30 Labs: Laboratory Results - last 24 hr 04/25/18 04/26/18 04/26/18 16:30 06:30 06:30 WBC 4.7 RBC 3.43 L Hgb 9.8 L Hct 32.4 L MCV 94.5 MCH 28.6 MCHC 30.2 L RDW 14.8 H Plt Count 285 MPV 9.3 Gran % 70.8 H Lymph % (Auto) 13.1 L [place] % (Auto) 8.9 H Eos % (Auto) 6.1 H Baso % (Auto) 1.1 Gran # 3.34 Lymph # (Auto) 0.6 L [place] # (Auto) 0.4 Eos # (Auto) 0.3 Baso # (Auto) 0.05 Sodium 141 Potassium 4.2 Chloride 105 Carbon Dioxide 30 Anion Gap 10 BUN 20 Creatinine 1.5 H Est GFR ( Amer) 42 Est GFR (Non-Af Amer) 35 Random Glucose 94 Calcium 9.4 Total Bilirubin 0.3 AST 32 ALT 17 Alkaline Phosphatase 94 Total Protein 7.4 Albumin 3.8 Globulin 3.6 Albumin/Globulin Ratio 1.1 Urine Color Light yellow Urine Appearance Slight-cloudy Urine pH 6.5 Ur Specific [place] 1.025 Urine Protein 100 H Urine Glucose (UA) Negative Urine Ketones Negative Urine Blood Small H Urine Nitrate Negative Urine Bilirubin Negative Urine Urobilinogen 0.2 Ur Leukocyte Esterase Large H Urine RBC 2 - 5 H Urine WBC 10 - 15 H Ur Epithelial Cells 0 - 2 Urine Bacteria Many Assessment & Plan - Assessment and Plan (Free Text) Plan: E.coli and Enterococcus faecalis UTI Hx of cervical cancer, stage 3 Hx of CKD stage 3 Hx of HTN Hx of CAD Hx of psoriasis Hx b/l nephrostomy tubes Plan: Will stop Levaquin. Will start patient on Zosyn Monitor urine and blood cultures Chest x-ray reviewed, negative for active disease Continue current medical management Recheck labs in AM Stella PGY-3 <Abelino Man - Last Filed: 04/26/18 17:15> Meds - Medications Medications: Current Medications Arformoterol Tartrate (Brovana) 15 mcg IH [id number] [facility] Last Admin: 04/26/18 07:47 Dose: 15 mcg Ascorbic Acid (Vitamin C 500 Mg Tab) 1,000 mg PO DAILY [facility] Last Admin: 04/26/18 09:55 Dose: 1,000 mg Benzonatate (Tessalon Perles) 100 mg PO TID [facility] Last Admin: 04/26/18 17:14 Dose: Not Given Budesonide (Pulmicort Respules) 0.25 mg IH [id number] [facility] Last Admin: 04/26/18 07:47 Dose: 0.25 mg Camphor/Menthol (Bengay) 0.5 gm TOP QID PRN PRN Reason: Bladder Spasm Last Admin: 04/25/18 21:18 Dose: 0.5 gm Docusate Sodium (Colace) 100 mg PO BID [facility] Last Admin: 04/26/18 17:13 Dose: Not Given Enoxaparin Sodium (Lovenox) 30 mg SC DAILY [facility]; Protocol Last Admin: 04/26/18 09:56 Dose: 30 mg Ergocalciferol (Drisdol 50,000 Intl Units Cap) 1 cap PO FRI [facility] Last Admin: 04/26/18 09:55 Dose: 1 cap Home Med (Home Med) 2 unit PO BID [facility] Last Admin: 04/26/18 17:13 Dose: Not Given Piperacillin Sod/Tazobactam Sod (Zosyn 3.375 In Ns 100ml) 100 mls @ 25 mls/hr IVPB Q12 [facility]; Protocol Stop: 05/03/18 10:01 Last Admin: 04/26/18 09:53 Dose: 25 mls/hr Pantoprazole Sodium (Protonix Ec Tab) 40 mg PO 0600 [facility] Last Admin: 04/26/18 05:31 Dose: 40 mg Polyethylene Glycol (Miralax) 17 gm PO BID [facility] Last Admin: 04/26/18 17:14 Dose: Not Given Pregabalin (Lyrica) 25 mg PO BID [facility] Last Admin: 04/26/18 17:14 Dose: Not Given Promethazine HCl/Codeine (Phenergan/Codeine Oral Syrup) 5 ml PO Q6H PRN PRN Reason: Cough Last Admin: 04/26/18 05:31 Dose: 5 ml Saliva Substitute (Saliva Substitute) 0.5 ml PO QID [facility] Last Admin: 04/26/18 17:14 Dose: Not Given Sertraline HCl (Zoloft) 25 mg PO QAM [facility] Last Admin: 04/26/18 09:55 Dose: 25 mg Sucralfate (Carafate Oral Susp) 1 gm PO 0630,1130,1630,2200 [facility] Last Admin: 04/26/18 17:12 Dose: Not Given Results - Vital Signs Recent Vital Signs: Last Vital Signs Temp 98.1 F 04/26/18 12:00 Pulse 92 H 04/26/18 12:00 Resp 18 04/26/18 12:00 BP 151/93 H 04/26/18 12:00 Pulse Ox 96 04/26/18 06:00 - Labs Result Diagrams: 04/26/18 06:30 04/26/18 06:30 Labs: Laboratory Results - last 24 hr 04/26/18 04/26/18 06:30 06:30 WBC 4.7 RBC 3.43 L Hgb 9.8 L Hct 32.4 L MCV 94.5 MCH 28.6 MCHC 30.2 L RDW 14.8 H Plt Count 285 MPV 9.3 Gran % 70.8 H Lymph % (Auto) 13.1 L [place] % (Auto) 8.9 H Eos % (Auto) 6.1 H Baso % (Auto) 1.1 Gran # 3.34 Lymph # (Auto) 0.6 L [place] # (Auto) 0.4 Eos # (Auto) 0.3 Baso # (Auto) 0.05 Sodium 141 Potassium 4.2 Chloride 105 Carbon Dioxide 30 Anion Gap 10 BUN 20 Creatinine 1.5 H Est GFR ( Amer) 42 Est GFR (Non-Af Amer) 35 Random Glucose 94 Calcium 9.4 Total Bilirubin 0.3 AST 32 ALT 17 Alkaline Phosphatase 94 Total Protein 7.4 Albumin 3.8 Globulin 3.6 Albumin/Globulin Ratio 1.1 Assessment & Plan - Assessment and Plan (Free Text) Plan: Infectious diseases Attending Physician Attestation Patient seen and examined, discussed with medical health researcher. I have reviewed the patient's history of present illness, past medical, social, personal and family histories, pertinent physical exam findings, course so far in this hospital admission, pertinent laboratory and imaging results. I agree with the above findings, assessment and plan. In addition, started Zosyn for patient with probable complicated UTI with E. coli and E. faecalis, in this patient with indwelling right sided nephrostomy tube presenting with hematuria. Follow up plans of Urology. Will continue to monitor clinically.
--- NOTE | 2018-04-26 14:45 | CP.PCM.PCO ---
Physician Communication Note - Physician Communication Note Physician Communication Note: treatment for UTI as per ID abnormal urine culture
--- NOTE | 2018-04-26 14:46 | CP.PCM.PCO ---
Physician Communication Note - Physician Communication Note Physician Communication Note: Dr. Black consulted for possible nephrostomy tube change pending evaluation
[2018-04-27] MEDS: Promethazine/Cod 6.25mg-10mg/5ml Syr UD PO PRN (02:21)
[2018-04-27] MEDS: Pantoprazole 40 mg EC Tab PO SCH (05:30)
[2018-04-27] MEDS: Sucralfate 1 gm/10 ml Oral Susp UD PO SCH ×4 (05:31→22:41)
[2018-04-27] MEDS: Arformoterol 15 mcg/2 ml Inh Sol IH SCH ×2 (07:41→20:10)
[2018-04-27] MEDS: Budesonide 0.25 mg/2 ml Inhal Susp UD IH SCH ×2 (07:41→20:10)
[2018-04-27] MEDS: Enoxaparin 30 mg Syringe SC SCH (10:54)
[2018-04-27] MEDS: TRANEXAMIC ACID 650 MG PO SCH ×2 (10:54→18:34)
[2018-04-27] MEDS: Piperacillin/Tazobact 3.375 gm 100 ML IVPB SCH ×2 (10:55→22:40)
[2018-04-27] MEDS: POLYETHYLENE GLYCOL 3350 17 GM/Dose PACKET PO SCH ×2 (10:56→18:35)
[2018-04-27] MEDS ORDERED: Albuterol 0.083% Inhal Sol (2.5 mg/3 mL) UD ONE (13:57)
--- NOTE | 2018-04-27 13:58 | CP.PCM.PN ---
Subjective - Date & Time of Evaluation Date of Evaluation: 04/27/18 Time of Evaluation: 11:20 - Subjective Subjective: Comfortable in bed, no fevers, not in distress. Objective - Vital Signs/Intake and Output Vital Signs (last 24 hours): Temp Pulse Resp BP Pulse Ox 98.5 F 86 20 121/73 95 04/27/18 06:00 04/27/18 06:00 04/27/18 06:00 04/27/18 06:00 04/27/18 06:00 Intake and Output: 04/27/18 04/27/18 06:59 18:59 Intake Total 460 Output Total 1600 Balance -1140 - Medications Medications: Current Medications Arformoterol Tartrate (Brovana) 15 mcg IH [id number] [facility] Last Admin: 04/27/18 07:41 Dose: 15 mcg Ascorbic Acid (Vitamin C 500 Mg Tab) 1,000 mg PO DAILY [facility] Last Admin: 04/26/18 09:55 Dose: 1,000 mg Benzonatate (Tessalon Perles) 100 mg PO TID [facility] Last Admin: 04/26/18 18:41 Dose: 100 mg Budesonide (Pulmicort Respules) 0.25 mg IH [id number] [facility] Last Admin: 04/27/18 07:41 Dose: 0.25 mg Camphor/Menthol (Bengay) 0.5 gm TOP QID PRN PRN Reason: Bladder Spasm Last Admin: 04/25/18 21:18 Dose: 0.5 gm Docusate Sodium (Colace) 100 mg PO BID [facility] Last Admin: 04/26/18 18:42 Dose: 100 mg Enoxaparin Sodium (Lovenox) 30 mg SC DAILY [facility]; Protocol Last Admin: 04/26/18 09:56 Dose: 30 mg Ergocalciferol (Drisdol 50,000 Intl Units Cap) 1 cap PO FRI [facility] Last Admin: 04/26/18 09:55 Dose: 1 cap Home Med (Home Med) 2 unit PO BID [facility] Last Admin: 04/26/18 18:42 Dose: 2 unit Piperacillin Sod/Tazobactam Sod (Zosyn 3.375 In Ns 100ml) 100 mls @ 25 mls/hr IVPB Q12 [facility]; Protocol Stop: 05/03/18 10:01 Last Admin: 04/26/18 22:42 Dose: 25 mls/hr Ondansetron HCl (Zofran Inj) 4 mg IVP Q6H PRN PRN Reason: Nausea/Vomiting Last Admin: 04/26/18 17:50 Dose: 4 mg Pantoprazole Sodium (Protonix Ec Tab) 40 mg PO 0600 [facility] Last Admin: 04/27/18 05:30 Dose: 40 mg Polyethylene Glycol (Miralax) 17 gm PO BID [facility] Last Admin: 04/26/18 17:14 Dose: Not Given Pregabalin (Lyrica) 25 mg PO BID [facility] Last Admin: 04/26/18 09:56 Dose: 25 mg Promethazine HCl/Codeine (Phenergan/Codeine Oral Syrup) 5 ml PO Q6H PRN PRN Reason: Cough Last Admin: 04/27/18 02:21 Dose: 5 ml Saliva Substitute (Saliva Substitute) 0.5 ml PO QID [facility] Last Admin: 04/26/18 22:43 Dose: Not Given Sertraline HCl (Zoloft) 25 mg PO QAM [facility] Last Admin: 04/26/18 09:55 Dose: 25 mg Sucralfate (Carafate Oral Susp) 1 gm PO 0630,1130,1630,2200 [facility] Last Admin: 04/27/18 05:31 Dose: 1 gm - Labs Labs: 04/26/18 06:30 04/26/18 06:30 PT 12.2 SECONDS (9.4-12.5) 04/22/18 16:38 INR 1.07 04/22/18 16:38 APTT 30.8 Seconds (25.1-36.5) 04/22/18 16:38 - Constitutional Appears: Chronically Ill - Head Exam Head Exam: NORMAL INSPECTION - Respiratory Exam Respiratory Exam: Decreased Breath Sounds - Cardiovascular Exam Cardiovascular Exam: +S1, +S2 - GI/Abdominal Exam GI & Abdominal Exam: Soft. absent: Tenderness Assessment and Plan - Assessment and Plan (Free Text) Plan: Assessment probable complicated UTI with E. coli and E. faecalis, in this patient with indwelling right sided nephrostomy tube presenting with hematuria history of Urinary tract infection with Klebsiella oxytoca history of pseudomonas, Klebsiella and Enterococcus faecalis UTI enterococcus and pseudomonas UTI in the past cervical cancer S/P chemotherapy and radiation therapy with history or radiation cystitis history of transient ischemic attack GERD coronary artery disease sleep apnea history of psoriasis history of diverticulitis history of depression chronic renal failure S/P nephrostomy tube placement Plan continue Zosyn (day 2) and will continue to monitor clinically
[2018-04-27] MEDS: Saliva Substitute 44.3 ML PO SCH ×3 (14:04→22:47)
[2018-04-27] MEDS: Oxycodone/Acetaminophen 5/325 mg Tab PO PRN ×2 (15:41→22:42)
--- NOTE | 2018-04-27 21:24 | PN ---
DATE: 04/27/2018 This is [facility]'s hospital visit on the medical floor. For Dr. Frod. SUBJECTIVE: The patient is a 67-year-old female, admitted via the emergency room for worsening shortness of breath, dyspnea on exertion with the patient known to have recently diagnosed metastatic disease to the lung with external compression of the bronchus from her cervical cancer. She also has bilateral nephrostomy tubes of long standing for which urinalysis showed greater than 100,000 colonies of positive culture, for which she is now being appropriately treated with antibiotics as per sensitivities. The patient has known history of noncompliance with the patient undersigned against medical advice recently. The patient is known to have affective disorders. At present, she has begun radiation with Dr. Corrie Aguiar with further recommendations forthcoming. She continues to have significant compromised breathing that has been addressed by Dr. Reis, her district captain. At present, her family is at the bedside including her sister and two nieces, who were very upset that the patient was recommended by hospital personnel to be considered for discharge home with the patient continuing on IV antibiotics along with respiratory treatments for her significant compromised breathing. The patient also has significant pain from her nephrostomy tubes for which narcotic analgesics are necessary along with tranexamic acid, which the patient has been on for significant period of time, which is necessary for prevention of the patient's bleeding episodes for which she was hospitalized in the past on two separate occasions for hemoglobin in the 5 range, for which transfusions were given then, one is referred to previous records. OBJECTIVE/PHYSICAL EXAMINATION: VITAL SIGNS: Temperature 98.5, pulse 92, respirations 19, blood pressure 95/72, and pulse ox 95%. HEENT: Unremarkable, except for poor dentition. NECK: Supple. HEART: Regular rate. LUNGS: Scattered rhonchi. ABDOMEN: Obese, soft and nontender. EXTREMITIES: No edema. SKIN: Warm and dry. NEUROLOGIC: Awake and alert. LABORATORY DATA: The patient's labs were done; white blood cell count of 4.7, hemoglobin were done yesterday and we will repeat it today. Yesterday, white blood cell count 4.2, hemoglobin 9.8, hematocrit 32.4, with platelet count of 285,000. Metabolic panel showed a creatinine of 1.5, down from 1.9 four days prior. ASSESSMENT: For this patient is that of metastatic cervical cancer with metastasis to the lung with external compression to the bronchus, chronic kidney disease with bilateral nephrostomy tubes, atherosclerotic cardiovascular disease, history of stent, coronary artery stenting, sleep apnea, pulmonary hypertension, Watkins's esophagus, affective disorder, history of severe anemia secondary to bleed. Her carcinoma is IIIB advanced carcinoma of the cervix at that time status post radiation with hemorrhagic cystitis with ureteral stenting, history on non-ST myocardial infarction, five-vessel bare-metal stenting status post treatment with hyperbaric oxygen, depression and chronic pain. Upon review of the patient's blood bank analysis, the patient has been transfused 131 units of packed red blood cells over her treatment period including 15 bags of fresh frozen plasma dating from 2011. PLAN: For this patient is to continue present medical regimen. We will monitor clinically with labs with radiation to continue with continued observation and treatment for her respiratory difficulty as per Dr. Reis. This is a complex patient with a comprehensive medically necessary and appropriate visit carried out in excess of 60 minutes with the patient, her sister, and her nieces' questions answered to their satisfaction as they were very upset and concerned that the patient was recommended for discharge they believe prematurely. The patient also has urinary tract infection with hematuria and history of TIA. Evaristo Saldivar MD
[2018-04-28] MEDS: Sucralfate 1 gm/10 ml Oral Susp UD PO SCH ×4 (05:50→22:31)
[2018-04-28] MEDS: Oxycodone/Acetaminophen 5/325 mg Tab PO PRN (05:50)
[2018-04-28] MEDS: Pantoprazole 40 mg EC Tab PO SCH (05:50)
[2018-04-28 07:03] LABS: ALB/GLOB RATIO 1.1 (1.1-1.8); ALBUMIN 3.7 g/dL (3.0-4.8); CALCIUM 9.4 mg/dL (8.4-10.5)
[2018-04-28 07:16] LABS: BASO # 0.03 K/mm3 (0.0-2.0); BASO % 0.7 % (0.0-3.0); EOS # 0.2 (0.0-0.7); EOS % 5.4 % (1.5-5.0); GRAN # 3.14 (1.4-6.5); GRAN % 73.1 % (50.0-68.0); HEMOGLOBIN 9.4 g/dL (12.0-16.0); LYMPH # 0.6 (1.2-3.4); LYMPH % 13.1 % (22.0-35.0); MEAN CELL VOLUME 95.1 fl (80.0-105.0); MEAN CORPUSCULAR HEMOGLOBIN 28.9 pg (25.0-35.0); MEAN CORPUSCULAR HGB CONC 30.4 g/dl (31.0-37.0); MEAN PLATELET VOLUME 9.5 fl (7.0-11.0); MONO # 0.3 (0.1-0.6); MONO % 7.7 % (1.0-6.0); RBC 3.25 10^6/uL (3.5-6.1); RED CELL DISTRIBUTION WIDTH 15.1 % (11.5-14.5); WHITE BLOOD COUNT 4.3 10^3/uL (4.5-11.0)
[2018-04-28] MEDS: Budesonide 0.25 mg/2 ml Inhal Susp UD IH SCH ×2 (07:18→20:50)
[2018-04-28] MEDS: Arformoterol 15 mcg/2 ml Inh Sol IH SCH ×2 (07:18→20:49)
[2018-04-28] MEDS: POLYETHYLENE GLYCOL 3350 17 GM/Dose PACKET PO SCH ×2 (09:44→18:02)
[2018-04-28] MEDS: Saliva Substitute 44.3 ML PO SCH ×4 (09:45→22:07)
[2018-04-28] MEDS: TRANEXAMIC ACID 650 MG PO SCH ×2 (10:37→18:26)
[2018-04-28] MEDS: Enoxaparin 30 mg Syringe SC SCH (10:37)
[2018-04-28] MEDS: Piperacillin/Tazobact 3.375 gm 100 ML IVPB SCH ×2 (10:38→22:31)
[2018-04-28] MEDS: Promethazine/Cod 6.25mg-10mg/5ml Syr UD PO PRN ×3 (10:38→20:34)
--- NOTE | 2018-04-28 12:34 | CP.PCM.PN ---
Subjective - Date & Time of Evaluation Date of Evaluation: 04/28/18 Time of Evaluation: 11:15 - Subjective Subjective: No fevers, not in distress, had some soft stools but she states that is is not watery and it has resolved, no abdominal pain. Objective - Vital Signs/Intake and Output Vital Signs (last 24 hours): Temp Pulse Resp BP Pulse Ox 98.5 F 86 20 121/73 95 04/27/18 06:00 04/27/18 06:00 04/27/18 06:00 04/27/18 06:00 04/27/18 06:00 Intake and Output: 04/27/18 04/27/18 06:59 18:59 Intake Total 460 Output Total 1600 Balance -1140 - Medications Medications: Current Medications Arformoterol Tartrate (Brovana) 15 mcg IH [id number] [facility] Last Admin: 04/27/18 07:41 Dose: 15 mcg Ascorbic Acid (Vitamin C 500 Mg Tab) 1,000 mg PO DAILY [facility] Last Admin: 04/27/18 10:55 Dose: 1,000 mg Benzonatate (Tessalon Perles) 100 mg PO TID [facility] Last Admin: 04/27/18 10:55 Dose: 100 mg Budesonide (Pulmicort Respules) 0.25 mg IH [id number] [facility] Last Admin: 04/27/18 07:41 Dose: 0.25 mg Camphor/Menthol (Bengay) 0.5 gm TOP QID PRN PRN Reason: Bladder Spasm Last Admin: 04/25/18 21:18 Dose: 0.5 gm Docusate Sodium (Colace) 100 mg PO BID [facility] Last Admin: 04/27/18 10:56 Dose: 100 mg Enoxaparin Sodium (Lovenox) 30 mg SC DAILY [facility]; Protocol Last Admin: 04/27/18 10:54 Dose: 30 mg Ergocalciferol (Drisdol 50,000 Intl Units Cap) 1 cap PO FRI [facility] Last Admin: 04/26/18 09:55 Dose: 1 cap Home Med (Home Med) 2 unit PO BID [facility] Last Admin: 04/27/18 10:54 Dose: 2 unit Piperacillin Sod/Tazobactam Sod (Zosyn 3.375 In Ns 100ml) 100 mls @ 25 mls/hr IVPB Q12 [facility]; Protocol Stop: 05/03/18 10:01 Last Admin: 04/27/18 10:55 Dose: 25 mls/hr Ondansetron HCl (Zofran Inj) 4 mg IVP Q6H PRN PRN Reason: Nausea/Vomiting Last Admin: 04/26/18 17:50 Dose: 4 mg Pantoprazole Sodium (Protonix Ec Tab) 40 mg PO 0600 [facility] Last Admin: 04/27/18 05:30 Dose: 40 mg Polyethylene Glycol (Miralax) 17 gm PO BID [facility] Last Admin: 04/27/18 10:56 Dose: Not Given Pregabalin (Lyrica) 25 mg PO BID [facility] Last Admin: 04/27/18 10:56 Dose: 25 mg Promethazine HCl/Codeine (Phenergan/Codeine Oral Syrup) 5 ml PO Q6H PRN PRN Reason: Cough Last Admin: 04/27/18 02:21 Dose: 5 ml Saliva Substitute (Saliva Substitute) 0.5 ml PO QID [facility] Last Admin: 04/26/18 22:43 Dose: Not Given Sertraline HCl (Zoloft) 25 mg PO QAM [facility] Last Admin: 04/27/18 10:55 Dose: 25 mg Sucralfate (Carafate Oral Susp) 1 gm PO 0630,1130,1630,2200 [facility] Last Admin: 04/27/18 10:56 Dose: 1 gm - Labs Labs: 04/26/18 06:30 04/26/18 06:30 PT 12.2 SECONDS (9.4-12.5) 04/22/18 16:38 INR 1.07 04/22/18 16:38 APTT 30.8 Seconds (25.1-36.5) 04/22/18 16:38 - Constitutional Appears: Non-toxic, No Acute Distress - Head Exam Head Exam: NORMAL INSPECTION Assessment and Plan - Assessment and Plan (Free Text) Plan: Assessment probable complicated UTI with E. coli and E. faecalis, in this patient with indwelling right sided nephrostomy tube presenting with hematuria history of Urinary tract infection with Klebsiella oxytoca history of pseudomonas, Klebsiella and Enterococcus faecalis UTI enterococcus and pseudomonas UTI in the past cervical cancer S/P chemotherapy and radiation therapy with history or radiation cystitis history of transient ischemic attack GERD coronary artery disease sleep apnea history of psoriasis history of diverticulitis history of depression chronic renal failure S/P nephrostomy tube placement Plan continue Zosyn (day 3) and will continue to monitor clinically discussed and saw patient at bedside with Dr. Saldivar - will repeat urine cx
--- NOTE | 2018-04-28 19:36 | PN ---
DATE: 04/28/2018 This is [facility] visit on the telemetry floor. For Dr. Ford. SUBJECTIVE: The patient is a 67-year-old female, admitted via the emergency room for increasing shortness of breath, dyspnea on exertion with known recently diagnosed metastatic disease to the lung with external compression of the bronchus from her primary cervical cancer. At this time, the patient is being treated for urinary tract infection as she has percutaneous nephrostomy tubes with positive cultures, now treated with Zosyn as per Dr. Man, Infectious Disease quality consultant. She also has continuing problems with breathing for which Dr. Reis is following the patient,Pulmonology along with Dr. Corrie Aguiar, Radiation Oncology for which the patient has began radiation. However, as the patient lives alone, she was thought not able to be safely discharged as she was continuing to have respiratory discomfort along with treatment for urinary tract infection. She is also taking tranexamic acid for her significant anemic indices which have since improved once this medicine was started for her. At present, she is reporting diarrhea. Upon further questioning there was episode of loose stool for which antibiotics, initially Augmentin was begun for her and now the patient is being treated with Zosyn for positive culture on her urine specimen. With this, the stool for C. difficile will be sent and Dr. Man will continue with the antibiotic treatment as per his recommendations. OBJECTIVE/PHYSICAL EXAMINATION: VITAL SIGNS: Temperature 97.9, pulse 84, respirations 20, blood pressure 126/87, and pulse ox 96%. HEENT: Unremarkable, except for poor dentition. NECK: Supple. HEART: Regular rate. LUNGS: Occasional rhonchi. ABDOMEN: Obese, soft and nontender, with her back noted that dressing with two percutaneous nephrostomy tubes noted. EXTREMITIES: No edema. SKIN: Warm and dry. NEUROLOGIC: Awake and alert. LABORATORY DATA: The patient's labs were done; white blood cell count of 4.3, hemoglobin 9.4, hematocrit of 30.9 and platelet count of 272,000. Metabolic panel showing a BUN of 22, creatinine of 1.8, looking otherwise normal panel. ASSESSMENT: For this patient is that of complicated urinary tract infection with two organisms with the patient with bilateral percutaneous nephrostomy tubes, cervical cancer with metastasis to lung with external compression of the bronchus, chronic kidney disease, anemia of chronic disease, atherosclerotic cardiovascular disease, history of stent placement, pulmonary hypertension, Watkins's esophagus, affective disorder, history of non-ST myocardial infarction with five-vessel bare-metal stenting, depression and chronic pain. PLAN: For this patient after conversation with Dr. Ford is to continue the present medical regimen, with the radiation to continue as per Dr. Aguiar, with discontinuation of telemetry and eventually discharge home once the patient is stable as per Dr. Reis, Pulmonology and Dr. Man, Infectious Disease. This is a complex patient with a comprehensive medically necessary and appropriate visit carried out in excess of 20 minutes with the patient's questions answered to his satisfaction. Evaristo Saldivar MD
--- NOTE | 2018-04-28 21:57 | PN ---
DATE: 04/28/2018 REFERRING PHYSICIAN: Evaristo Saldivar MD SUBJECTIVE: She is sitting up in a bed. Night was unremarkable. Still has a mild cough and shortness of breath. No chest pain. No nausea, vomiting, diarrhea, leg pain or leg swelling. OBJECTIVE: GENERAL: In no acute distress. VITAL SIGNS: Temperature is 98, heart rate 94, respiratory rate is 16, blood pressure 134/84, pulse of 96% nasal cannula. HEENT: Moist mucous membrane. Crowded airway. NECK: Supple. No JVD. LUNGS: Have a few scattered rhonchi. HEART: S1, S2. ABDOMEN: Soft, nontender, no organomegaly. EXTREMITIES: There is no edema. NEUROLOGIC: Awake, alert and follows simple command. MEDICATIONS: She is on DuoNeb every 6 hours p.r.n., Bengay to affected area four times a day, Brovana inhaled twice a day, Carafate 1 g four times a day, Colace 100 mg twice a day, vitamin D 50,000 units weekly, Lovenox 30 mg daily, Lyrica 25 mg twice a day, MiraLax 17 g twice a day, Percocet 5/325 mg 1 tablet every 6 hours p.r.n., promethazine 5 mL every 6 hours p.r.n., Protonix 40 mg daily, Pulmicort inhaled twice a day, Saliva Substitute four times a day, Tessalon Perles 100 mg three times a day, vitamin C 500 mg daily, Zofran 4 mg every 6 hours p.r.n., Zoloft 25 mg daily Zosyn 3.375 g IV every 12 hours. LABORATORY DATA: Shows hemoglobin 9.4, hematocrit 30.9, WBC 4.3, platelet is 272. Sodium 142, potassium 3.7, chloride 108, bicarbonate 26, BUN 22, creatinine 1.8, glucose 81, calcium is 9.4, AST 26, ALT 18, alk phos is 81. Albumin is 3.7. IMPRESSION AND PLAN: Metastatic cervical cancer with metastasis to the lungs having external compression to the bronchus, also history of renal failure requiring bilateral nephrostomy drainage, coronary artery disease, history of coronary stent, bronchitis, obstructive sleep apnea syndrome, pulmonary hypertension, history of Watkins esophagus. This afternoon, she had a mild cough with blood-tinged sputum. Clinically, she is looks good. I will continue her all inhaled bronchodilator, cough suppressor, gastric and deep venous thrombosis prophylaxis. Continue oncology followup. Radiation therapy. Thank you and we will follow with you. Debby Reis MD
[2018-04-28] MEDS ORDERED: Morphine 2 mg/ml ISec IVP ONE (22:24)
[2018-04-29] MEDS: Pantoprazole 40 mg EC Tab PO SCH (05:37)
[2018-04-29] MEDS: Sucralfate 1 gm/10 ml Oral Susp UD PO SCH ×4 (05:37→21:23)
[2018-04-29] MEDS: Arformoterol 15 mcg/2 ml Inh Sol IH SCH ×2 (07:38→22:02)
[2018-04-29] MEDS: Budesonide 0.25 mg/2 ml Inhal Susp UD IH SCH ×2 (07:38→22:02)
--- NOTE | 2018-04-29 08:15 | PN ---
DATE: 04/27/2018 PULMONARY PROGRESS NOTE REFERRING PHYSICIAN: Dr. Moulton. SUBJECTIVE: The patient is sitting up in side of the bed. Sister and nieces are at bedside. Feels okay. ____ mild cough. Not much sputum production. No nausea, vomiting, or diarrhea. No leg pain or leg swelling. OBJECTIVE: GENERAL: In no acute distress. VITAL SIGNS: Temperature is 98, heart rate 95, respiratory rate is 20, blood pressure 112/71, pulse ox 95% on room air. HEENT: Moist mucous membranes. No ulcer or thrush. NECK: Supple. No JVD. LUNGS: Have a few scattered rhonchi. Expiratory wheezing. HEART: S1 and S2. ABDOMEN: Soft and nontender. No organomegaly. EXTREMITIES: There is no edema. NEUROLOGIC: Awake and alert. Follows simple commands. MEDICATIONS: She is on Bengay at affected area four times a day, Brovana inhaled twice a day, Carafate 1 g four times a day, Colace 100 mg twice a day, vitamin D one capsule weekly, Lovenox 30 mg subcutaneously daily, Lyrica 25 mg twice a day, MiraLax one pack twice a day, Percocet 5/325 one tab every 6 hours p.r.n., promethazine with Codeine 5 mL every 6 hours p.r.n., Protonix 40 mg daily, Pulmicort inhaled twice a day, Tessalon Perles 100 mg three times a day, vitamin C 500 mg daily, Zofran p.r.n. basis, Zoloft 25 mg daily, and Zosyn 3.375 g every 12 hours. LABORATORY DATA: Reviewed and noted. No new lab is available since yesterday. Urine culture on 04/22/2018 had E. coli Enterococcus. Repeat culture, so far there is no growth. Repeat urinalysis much improved. IMPRESSION AND PLAN: Metastatic cervical cancer with metastasis to the lungs with external compression to the mediastinum and bronchus with cough and shortness of breath. Renal failure requiring bilateral nephrostomies, probably colonitis with bacteria. Urinalysis repeat is unremarkable. She has a coronary artery disease, history of coronary stent, bronchitis, obstructive sleep apnea syndrome, pulmonary hypertension, history of Barrette's esophagus. Case discussed with pulmonary at bedside. All their questions answered. Also spoke Dr. Evaristo Saldivar as well as respiratory therapist, stat albuterol dose is given. Continue Brovana. Continue gastroesophageal reflux disease precaution. Gastric prophylaxis and deep venous prophylaxis on radiation therapy. Thank you and we will follow with you. Debby Reis MD
[2018-04-29 08:50] LABS: BASO # 0.05 K/mm3 (0.0-2.0); EOS # 0.3 (0.0-0.7); EOS % 4.8 % (1.5-5.0); GRAN # 3.85 (1.4-6.5); GRAN % 73.4 % (50.0-68.0); HEMOGLOBIN 9.7 g/dL (12.0-16.0); LYMPH # 0.7 (1.2-3.4); LYMPH % 13.7 % (22.0-35.0); MEAN CELL VOLUME 94.7 fl (80.0-105.0); MEAN CORPUSCULAR HEMOGLOBIN 28.8 pg (25.0-35.0); MEAN CORPUSCULAR HGB CONC 30.4 g/dl (31.0-37.0); MEAN PLATELET VOLUME 9.3 fl (7.0-11.0); MONO # 0.4 (0.1-0.6); MONO % 7.1 % (1.0-6.0); RBC 3.37 10^6/uL (3.5-6.1); RED CELL DISTRIBUTION WIDTH 14.9 % (11.5-14.5); WHITE BLOOD COUNT 5.2 10^3/uL (4.5-11.0)
[2018-04-29 08:53] LABS: ALB/GLOB RATIO 1.1 (1.1-1.8); ALBUMIN 3.8 g/dL (3.0-4.8); CALCIUM 9.4 mg/dL (8.4-10.5)
[2018-04-29] MEDS: TRANEXAMIC ACID 650 MG PO SCH ×2 (10:04→18:15)
[2018-04-29] MEDS: Enoxaparin 30 mg Syringe SC SCH (10:04)
[2018-04-29] MEDS: Saliva Substitute 44.3 ML PO SCH ×4 (10:05→21:24)
[2018-04-29] MEDS: POLYETHYLENE GLYCOL 3350 17 GM/Dose PACKET PO SCH ×2 (10:06→18:09)
[2018-04-29] MEDS: Piperacillin/Tazobact 3.375 gm 100 ML IVPB SCH ×2 (10:06→21:23)
--- NOTE | 2018-04-29 10:18 | CP.PCM.PN ---
<Nadir Douglas - Last Filed: 04/29/18 13:19> Subjective - Date & Time of Evaluation Date of Evaluation: 04/29/18 Time of Evaluation: 07:00 - Subjective Subjective: ID Progress Note Patient seen and examined at bedside. Patient admits to still having soft stools. Denies chest pain, shortness of breath, fever, chills. Objective - Vital Signs/Intake and Output Vital Signs (last 24 hours): Temp Pulse Resp BP Pulse Ox 97.9 F 82 18 137/88 97 04/29/18 06:00 04/29/18 06:00 04/29/18 06:00 04/29/18 06:00 04/29/18 06:00 Intake and Output: 04/29/18 04/29/18 06:59 18:59 Intake Total 720 Output Total 675 Balance 720 -675 - Medications Medications: Current Medications Albuterol Sulfate (Albuterol 0.083% Inhal Viviane (2.5 Mg/3 Ml) Ud) 2.5 mg INH [id number] PRN PRN Reason: Shortness of Breath Arformoterol Tartrate (Brovana) 15 mcg IH [id number] [facility] Last Admin: 04/29/18 07:38 Dose: 15 mcg Ascorbic Acid (Vitamin C 500 Mg Tab) 1,000 mg PO DAILY [facility] Last Admin: 04/28/18 10:20 Dose: 1,000 mg Benzonatate (Tessalon Perles) 100 mg PO TID [facility] Last Admin: 04/28/18 18:26 Dose: 100 mg Budesonide (Pulmicort Respules) 0.25 mg IH [id number] [facility] Last Admin: 04/29/18 07:38 Dose: 0.25 mg Camphor/Menthol (Bengay) 0.5 gm TOP QID PRN PRN Reason: Bladder Spasm Last Admin: 04/25/18 21:18 Dose: 0.5 gm Docusate Sodium (Colace) 100 mg PO BID [facility] Last Admin: 04/28/18 17:14 Dose: Not Given Enoxaparin Sodium (Lovenox) 30 mg SC DAILY [facility]; Protocol Last Admin: 04/28/18 10:37 Dose: 30 mg Ergocalciferol (Drisdol 50,000 Intl Units Cap) 1 cap PO FRI [facility] Last Admin: 04/26/18 09:55 Dose: 1 cap Home Med (Home Med) 2 unit PO BID [facility] Last Admin: 04/28/18 18:26 Dose: 2 unit Piperacillin Sod/Tazobactam Sod (Zosyn 3.375 In Ns 100ml) 100 mls @ 25 mls/hr I VPB Q12 [facility]; Protocol Stop: 05/03/18 10:01 Last Admin: 04/28/18 22:31 Dose: 25 mls/hr Loperamide HCl (Imodium) 2 mg PO Q8 PRN PRN Reason: diarrhea, loose stools Last Admin: 04/29/18 06:19 Dose: 2 mg Ondansetron HCl (Zofran Inj) 4 mg IVP Q6H PRN PRN Reason: Nausea/Vomiting Last Admin: 04/26/18 17:50 Dose: 4 mg Oxycodone/Acetaminophen (Percocet 5/325 Mg Tab) 1 tab PO Q6H PRN PRN Reason: Pain, severe (8-10) Stop: 04/30/18 15:12 Last Admin: 04/28/18 05:50 Dose: 1 tab Pantoprazole Sodium (Protonix Ec Tab) 40 mg PO 0600 [facility] Last Admin: 04/29/18 05:37 Dose: 40 mg Polyethylene Glycol (Miralax) 17 gm PO BID [facility] Last Admin: 04/28/18 18:02 Dose: Not Given Pregabalin (Lyrica) 25 mg PO BID [facility] Last Admin: 04/28/18 18:26 Dose: 25 mg Promethazine HCl/Codeine (Phenergan/Codeine Oral Syrup) 5 ml PO Q6H PRN PRN Reason: Cough Last Admin: 04/28/18 20:34 Dose: 5 ml Saliva Substitute (Saliva Substitute) 0.5 ml PO QID [facility] Last Admin: 04/28/18 22:07 Dose: Not Given Sertraline HCl (Zoloft) 25 mg PO QAM [facility] Last Admin: 04/28/18 10:20 Dose: 25 mg Sucralfate (Carafate Oral Susp) 1 gm PO 0630,1130,1630,2200 [facility] Last Admin: 04/29/18 05:37 Dose: 1 gm - Labs Labs: 04/29/18 08:30 04/29/18 08:30 PT 12.2 SECONDS (9.4-12.5) 04/22/18 16:38 INR 1.07 04/22/18 16:38 APTT 30.8 Seconds (25.1-36.5) 04/22/18 16:38 - Constitutional Appears: Non-toxic, No Acute Distress - Head Exam Head Exam: ATRAUMATIC, NORMAL INSPECTION, NORMOCEPHALIC - Neck Exam Neck Exam: Normal Inspection - Respiratory Exam Respiratory Exam: Wheezes (Mild left), NORMAL BREATHING PATTERN. absent: Rales, Rhonchi - Cardiovascular Exam Cardiovascular Exam: RRR, +S1, +S2 - GI/Abdominal Exam GI & Abdominal Exam: Soft, Normal Bowel Sounds. absent: Tenderness - Extremities Exam Extremities Exam: Normal Inspection. absent: Pedal Edema - Neurological Exam Neurological Exam: Alert, Awake, Oriented x3 - Psychiatric Exam Psychiatric exam: Normal Affect, Normal Mood - Skin Skin Exam: Intact, Normal Color, Warm Assessment and Plan - Assessment and Plan (Free Text) Plan: Complicated UTI with E. coli and E. faecalis with right sided nephrostomy tube hx of Urinary tract infection with Klebsiella oxytoca hx of pseudomonas, Klebsiella and Enterococcus faecalis UTI hx enterococcus and pseudomonas UTI hx of cervical cancer S/P chemotherapy and radiation therapy with history or radiation cystitis hx of transient ischemic attack hx of GERD hx coronary artery disease hx of sleep apnea hx of psoriasis hx of diverticulitis hx of depression hx of chronic renal failure S/P nephrostomy tube placement Plan continue Zosyn, day 4 Urine culture pending C. diff negative Continiue to monitor closely Stella, PGY-3 <Abelino Man S - Last Filed: 04/29/18 14:01> Objective - Vital Signs/Intake and Output Vital Signs (last 24 hours): Temp Pulse Resp BP Pulse Ox 98.2 F 88 19 156/93 H 97 04/29/18 12:00 04/29/18 12:00 04/29/18 12:00 04/29/18 12:00 04/29/18 06:00 Intake and Output: 04/29/18 04/29/18 06:59 18:59 Intake Total 720 Output Total 675 Balance 720 -675 - Medications Medications: Current Medications Albuterol Sulfate (Albuterol 0.083% Inhal Viviane (2.5 Mg/3 Ml) Ud) 2.5 mg INH [id number] PRN PRN Reason: Shortness of Breath Arformoterol Tartrate (Brovana) 15 mcg IH [id number] [facility] Last Admin: 04/29/18 07:38 Dose: 15 mcg Ascorbic Acid (Vitamin C 500 Mg Tab) 1,000 mg PO DAILY [facility] Last Admin: 04/29/18 10:05 Dose: 1,000 mg Benzonatate (Tessalon Perles) 100 mg PO TID [facility] Last Admin: 04/29/18 10:05 Dose: 100 mg Budesonide (Pulmicort Respules) 0.25 mg IH [id number] [facility] Last Admin: 04/29/18 07:38 Dose: 0.25 mg Camphor/Menthol (Bengay) 0.5 gm TOP QID PRN PRN Reason: Bladder Spasm Last Admin: 04/25/18 21:18 Dose: 0.5 gm Docusate Sodium (Colace) 100 mg PO BID [facility] Last Admin: 04/29/18 10:05 Dose: Not Given Enoxaparin Sodium (Lovenox) 30 mg SC DAILY [facility]; Protocol Last Admin: 04/29/18 10:04 Dose: 30 mg Ergocalciferol (Drisdol 50,000 Intl Units Cap) 1 cap PO FRI [facility] Last Admin: 04/26/18 09:55 Dose: 1 cap Home Med (Home Med) 2 unit PO BID [facility] Last Admin: 04/29/18 10:04 Dose: 2 unit Piperacillin Sod/Tazobactam Sod (Zosyn 3.375 In Ns 100ml) 100 mls @ 25 mls/hr IVPB Q12 [facility]; Protocol Stop: 05/03/18 10:01 Last Admin: 04/29/18 10:06 Dose: 25 mls/hr Loperamide HCl (Imodium) 2 mg PO Q8 PRN PRN Reason: diarrhea, loose stools Last Admin: 04/29/18 06:19 Dose: 2 mg Ondansetron HCl (Zofran Inj) 4 mg IVP Q6H PRN PRN Reason: Nausea/Vomiting Last Admin: 04/26/18 17:50 Dose: 4 mg Oxycodone/Acetaminophen (Percocet 5/325 Mg Tab) 1 tab PO Q6H PRN PRN Reason: Pain, severe (8-10) Stop: 04/30/18 15:12 Last Admin: 04/28/18 05:50 Dose: 1 tab Pantoprazole Sodium (Protonix Ec Tab) 40 mg PO 0600 [facility] Last Admin: 04/29/18 05:37 Dose: 40 mg Polyethylene Glycol (Miralax) 17 gm PO BID [facility] Last Admin: 04/29/18 10:06 Dose: Not Given Pregabalin (Lyrica) 25 mg PO BID [facility] Last Admin: 04/29/18 10:04 Dose: 25 mg Promethazine HCl/Codeine (Phenergan/Codeine Oral Syrup) 5 ml PO Q6H PRN PRN Reason: Cough Last Admin: 04/28/18 20:34 Dose: 5 ml Saliva Substitute (Saliva Substitute) 0.5 ml PO QID [facility] Last Admin: 04/29/18 10:05 Dose: 0.5 ml Sertraline HCl (Zoloft) 25 mg PO QAM [facility] Last Admin: 04/29/18 10:04 Dose: 25 mg Sucralfate (Carafate Oral Susp) 1 gm PO 0630,1130,1630,2200 [facility] Last Admin: 04/29/18 12:39 Dose: 1 gm - Labs Labs: 04/29/18 08:30 04/29/18 08:30 PT 12.2 SECONDS (9.4-12.5) 04/22/18 16:38 INR 1.07 04/22/18 16:38 APTT 30.8 Seconds (25.1-36.5) 04/22/18 16:38 Assessment and Plan - Assessment and Plan (Free Text) Plan: Infectious diseases Attending Physician Attestation Patient seen and examined, discussed with administrative medical director. I have reviewed the patient's history of present illness, past medical, social, personal and family histories, pertinent physical exam findings, course so far in this hospital admission, pertinent laboratory and imaging results. I agree with the above findings, assessment and plan. In addition, complete total 5-7 day course of Zosyn for E. coli and E. faecalis UTI. Follow up repeat urine cx.
--- NOTE | 2018-04-29 11:31 | PN ---
DATE: 04/29/2018 PULMONARY PROGRESS NOTE REFERRING PHYSICIAN: Evaristo Saldivar MD SUBJECTIVE: The patent is sitting up in bed. No acute distress. No overnight events reported. The patient reports feeling better after receiving nebulizer treatment, still has shortness of breath with exertion. No headache, rhinitis, cough, shortness of breath, chest pain, abdominal pain, nausea, vomiting, leg pain or leg swelling reported. The patient reports that she was having diarrhea yesterday and had some this morning. Stool to be collected for C. diff. OBJECTIVE: GENERAL: No acute distress. VITAL SIGNS: Blood pressure 137/88, pulse 82, temperature 97.9, and oxygen saturation 97% on room air. HEENT: Moist mucous membranes. Crowded airway. NECK: Supple. No JVD. LUNGS: Few scattered rhonchi bilaterally. CARDIOVASCULAR: S1 and S2, audible. ABDOMEN: Soft and nontender. No distension. No organomegaly. EXTREMITIES: No bilateral lower extremity edema. NEUROLOGIC: Awake, alert, and verbal. Follows commands. MEDICATIONS: Reviewed. Albuterol 2.5 mg inhalation every 6 hours p.r.n., Brovana 15 mcg every 12 hours, vitamin C 1000 mg daily, Tessalon Perles 100 mg 3 times a day, Pulmicort 0.25 mg inhalation every 12 hours, Bengay topically 4 times a day p.r.n., Colace 100 mg twice a day, Lovenox 30 mg daily, ergocalciferol 50,000 units weekly, Imodium 2 mg every 8 hours p.r.n., Zofran 4 mg every 6 hours p.r.n., Percocet 5/325 mg one tab every 6 hours p.r.n. for severe pain, Protonix 40 mg daily, Zosyn 3.375 g every 12 hours, MiraLax 17 g twice a day, Lyrica 25 mg twice a day, Phenergan and codeine 5 mL every 6 hours p.r.n., saliva substitute 4 times a day, Zoloft 25 mg daily and Carafate 1 g four times a day. LABORATORY DATA: Reviewed. WBC 5.2, RBC 3.37, hemoglobin 9.7, hematocrit 31.9 and platelets 245. Sodium 143, potassium 4.4, chloride 108, carbon dioxide 28, anion gap 11, BUN 18, creatinine 1.7, GFR is 30, glucose 89, calcium 9.4, total bilirubin 0.2, AST 26, ALT 25, alkaline phosphatase 82, total protein 7.4, albumin 3.8, globulin 3.6 and albumin-globulin ratio 1.1. IMPRESSION AND PLAN: Metastatic cervical cancer with metastasis to the lung having external compression to the bronchus; history of renal failure requiring bilateral nephrostomy drainage, coronary artery disease; history of coronary stents; bronchitis; obstructive sleep apnea syndrome; pulmonary hypertension; history of Watkins's esophagus. Clinically the patient is doing better. Continue inhaled bronchodilators, gastric prophylaxis, deep venous thrombosis prophylaxis, continue cough suppressant. The patient is currently undergoing radiation therapy. Continue Oncology followup. This patient was seen and examined with Dr. Reis. Discussed assessment and plan as described above. Thank you for this consult and we will follow with you. Hira Adame APN Debby Reis MD
[2018-04-29] MEDS: Promethazine/Cod 6.25mg-10mg/5ml Syr UD PO PRN (15:09)
[2018-04-30] MEDS: Promethazine/Cod 6.25mg-10mg/5ml Syr UD PO PRN (03:21)
[2018-04-30] MEDS: Sucralfate 1 gm/10 ml Oral Susp UD PO SCH ×4 (05:43→22:18)
[2018-04-30] MEDS: Pantoprazole 40 mg EC Tab PO SCH (05:43)
[2018-04-30] MEDS: Arformoterol 15 mcg/2 ml Inh Sol IH SCH ×2 (07:45→19:34)
[2018-04-30] MEDS: Budesonide 0.25 mg/2 ml Inhal Susp UD IH SCH ×2 (07:45→19:34)
--- NOTE | 2018-04-30 09:41 | CP.PCM.PN ---
Subjective - Date & Time of Evaluation Date of Evaluation: 04/30/18 Time of Evaluation: 09:27 - Subjective Subjective: PGY-2 heme/onc progress note No acute events overnight. Patient seen with sister at bedside. Patient still complains of odynophagia. States she tolerating chemo well. Tolerating diet, no GI issues, no fever, shortness of breath. Objective - Vital Signs/Intake and Output Vital Signs (last 24 hours): Temp Pulse Resp BP Pulse Ox 98.2 F 95 H 20 151/99 H 99 04/30/18 06:00 04/30/18 06:00 04/30/18 06:00 04/30/18 06:00 04/30/18 06:00 Intake and Output: 04/30/18 04/30/18 06:59 18:59 Intake Total 1260 Output Total 1350 Balance -90 - Medications Medications: Current Medications Albuterol Sulfate (Albuterol 0.083% Inhal Viviane (2.5 Mg/3 Ml) Ud) 2.5 mg INH [id number] PRN PRN Reason: Shortness of Breath Arformoterol Tartrate (Brovana) 15 mcg IH [id number] [facility] Last Admin: 04/30/18 07:45 Dose: 15 mcg Ascorbic Acid (Vitamin C 500 Mg Tab) 1,000 mg PO DAILY [facility] Last Admin: 04/29/18 10:05 Dose: 1,000 mg Benzonatate (Tessalon Perles) 100 mg PO TID [facility] Last Admin: 04/29/18 18:13 Dose: 100 mg Budesonide (Pulmicort Respules) 0.25 mg IH [id number] [facility] Last Admin: 04/30/18 07:45 Dose: 0.25 mg Camphor/Menthol (Bengay) 0.5 gm TOP QID PRN PRN Reason: Bladder Spasm Last Admin: 04/25/18 21:18 Dose: 0.5 gm Al Hydrox/Mg Hydrox/Simethicone 30 ml/Diphenhydramine HCl 75 mg/Lidocaine 30 ml 0 ml PO Q2H PRN PRN Reason: Mouth/Throat Pain Docusate Sodium (Colace) 100 mg PO BID [facility] Last Admin: 04/29/18 18:10 Dose: Not Given Enoxaparin Sodium (Lovenox) 30 mg SC DAILY [facility]; Protocol Last Admin: 04/29/18 10:04 Dose: 30 mg Ergocalciferol (Drisdol 50,000 Intl Units Cap) 1 cap PO FRI [facility] Last Admin: 04/26/18 09:55 Dose: 1 cap Home Med (Home Med) 2 unit PO BID [facility] Last Admin: 04/29/18 18:15 Dose: 2 unit Piperacillin Sod/Tazobactam Sod (Zosyn 3.375 In Ns 100ml) 100 mls @ 25 mls/hr IVPB Q12 [facility]; Protocol Stop: 05/03/18 10:01 Last Admin: 04/29/18 21:23 Dose: 25 mls/hr Loperamide HCl (Imodium) 2 mg PO Q8 PRN PRN Reason: diarrhea, loose stools Last Admin: 04/29/18 18:35 Dose: 2 mg Ondansetron HCl (Zofran Inj) 4 mg IVP Q6H PRN PRN Reason: Nausea/Vomiting Last Admin: 04/26/18 17:50 Dose: 4 mg Oxycodone/Acetaminophen (Percocet 5/325 Mg Tab) 1 tab PO Q6H PRN PRN Reason: Pain, severe (8-10) Stop: 04/30/18 15:12 Last Admin: 04/28/18 05:50 Dose: 1 tab Pantoprazole Sodium (Protonix Ec Tab) 40 mg PO 0600 [facility] Last Admin: 04/30/18 05:43 Dose: 40 mg Polyethylene Glycol (Miralax) 17 gm PO BID [facility] Last Admin: 04/29/18 18:09 Dose: Not Given Pregabalin (Lyrica) 25 mg PO BID [facility] Last Admin: 04/29/18 18:13 Dose: 25 mg Promethazine HCl/Codeine (Phenergan/Codeine Oral Syrup) 5 ml PO Q6H PRN PRN Reason: Cough Last Admin: 04/30/18 03:21 Dose: 5 ml Saliva Substitute (Saliva Substitute) 0.5 ml PO QID [facility] Last Admin: 04/29/18 21:24 Dose: 0.5 ml Sertraline HCl (Zoloft) 25 mg PO QAM [facility] Last Admin: 04/29/18 10:04 Dose: 25 mg Sucralfate (Carafate Oral Susp) 1 gm PO 0630,1130,1630,2200 [facility] Last Admin: 04/30/18 05:43 Dose: 1 gm - Labs Labs: 04/29/18 08:30 04/29/18 08:30 PT 12.2 SECONDS (9.4-12.5) 04/22/18 16:38 INR 1.07 04/22/18 16:38 APTT 30.8 Seconds (25.1-36.5) 04/22/18 16:38 - Additional Findings Additional findings: - Constitutional Appears: Well, Non-toxic, No Acute Distress - Head Exam Head Exam: ATRAUMATIC, NORMAL INSPECTION - Eye Exam Eye Exam: EOMI, Normal appearance, PERRL. absent: Scleral icterus - ENT Exam ENT Exam: Mucous Membranes Moist - Respiratory Exam Respiratory Exam: Clear to Auscultation Bilateral, NORMAL BREATHING PATTERN. ab sent: Wheezes - Cardiovascular Exam Cardiovascular Exam: REGULAR RHYTHM, +S1, +S2, external jugular vein distended absent: JVD - GI/Abdominal Exam GI & Abdominal Exam: Normal Bowel Sounds, Soft. absent: Tenderness - Extremities Exam Extremities exam: Positive for: normal inspection - Neurological Exam Neurological exam: Alert, Oriented x3 - Psychiatric Exam Psychiatric exam: Normal Affect, Normal Mood - Skin Skin Exam: Intact, Normal Color, Warm Assessment and Plan - Assessment and Plan (Free Text) Plan: Ms Kitchen is a 67 year old female with history of stage III cervical cancer status post chemoradiation, CAD status post stent, CRI, h/o nephrostomy tubes, radiation cystitis, psoriasis, and depression who was admitted for dyspnea on exertion and cough: stage III cervical cancer w/ mets to lung -patient began radiation 04/25/[address] Aguiar - expected length to be approx 2 weeks -after radiation likely chemo -percocet 1 tab po q6h prn -pregabalin 25mg po bid -consult cardio Dr Oliva to ensure current radiation treatment is safe given patient's extensive cardiac history Cough/CASTANON -negative for flu swab, normal wbc, afebrile -empiric coverage with augmentin po q12 (started 04/25/18) and levaquin 250mg po qd (started 04/25/18) * augmentin and levaquin both discontinued, now on zosyn started 04/26/18 -tessalon perles 100mg po tid, phenergan 5ml po q6h prn -brovana 15mcg ih q12h, budesonide 0.25mg ih q12h Complicated UTI with E. coli and E. faecalis with right sided nephrostomy tube -ua + for leukocyte esterase and nitrates -empiric coverage with augmentin po q12 (started 04/25/18) and levaquin 250mg po qd (started 04/25/18) -complete total 5-7 day course of Zosyn for E. coli and E. faecalis UTI started 04/26/18 -repeat urine cx negative up to date Odynophagia -ENT Dr Topete consulted - however patient did not want to see Dr Mcmahan (who works with Dr Topete) -GI consulted, Dr Sumner -magic mouthwash 5ml 20 minutes ACHS Possible SVC Syndrome -external jugular distended -we will discuss with Dr Reis about possibility of SVC syndrom Depression -continue home med zoloft 25mg po qd CKD -Cr at her baseline of 1.5-2 -watch for upticks -bilateral nephrostomy tubes Anemia -Hgb at her baseline ~9 -iron studies indicate anemia of chronic disease CAD status post stent -no active issues PPX -lovenox 30mg sc qd -colace 100mg po bid -protonix 40mg po qd -continue home med vitamin c 1000mg po qd -HHD Case discussed with Dr Ford
[2018-04-30] MEDS: Piperacillin/Tazobact 3.375 gm 100 ML IVPB SCH (10:33)
[2018-04-30] MEDS: Enoxaparin 30 mg Syringe SC SCH (10:33)
[2018-04-30] MEDS: Saliva Substitute 44.3 ML PO SCH ×5 (10:34→23:03)
[2018-04-30] MEDS: POLYETHYLENE GLYCOL 3350 17 GM/Dose PACKET PO SCH (10:34)
[2018-04-30] MEDS: TRANEXAMIC ACID 650 MG PO SCH ×2 (10:35→17:20)
--- NOTE | 2018-04-30 11:20 | CP.PCM.CON ---
History of Present Illness - History of Present Illness History of Present Illness: Patient refuses consult with our group Past Patient History - Infectious Disease Hx of Infectious Diseases: None - Tetanus Immunizations Tetanus Immunization: Unknown - Past Medical History & Family History Past Medical History?: Yes - Past Social History Smoking Status: Former Smoker - CARDIAC Hx Cardiac Disorders: Yes (cad stent x4) Hx Hypertension: Yes Hx Mitral Valve Prolapse: Yes Hx Pacemaker: No - PULMONARY Hx Respiratory Disorders: Yes Hx Asthma: No Hx Bronchitis: Yes Hx Sleep Apnea: Yes - NEUROLOGICAL Hx Neurological Disorder: Yes (tympanic tubes) Hx Dizziness: Yes Hx Transient Ischemic Attacks (TIA): Yes (20yrs ago) - HEENT Hx HEENT Problems: Yes (glasses) Other/Comment: left tympanic tubes placed - RENAL Hx Chronic Kidney Disease: Yes Hx Kidney Stones: Yes Hx Renal Failure: Yes Other/Comment: Nephrostomy tubes bilateral, 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 - ENDOCRINE/METABOLIC Hx Endocrine Disorders: No - HEMATOLOGICAL/ONCOLOGICAL Hx Blood Disorders: Yes Hx Anemia: Yes (WITH BLOOD TRANSFUSION) Hx Cancer: Yes (Cervical with mets) Hx Chemotherapy: Yes (and radiation) Hx Metastesis: Yes (chest mass) - INTEGUMENTARY Hx Dermatological Problems: Yes Hx Eczema: Yes Hx Psoriasis: Yes - MUSCULOSKELETAL/RHEUMATOLOGICAL Hx Musculoskeletal Disorders: Yes (r ankle/ R WRIST FX R/T FALL 06/2015) Hx Falls: No Hx Fractures: Yes (right wrist, right ankle) - GASTROINTESTINAL Hx Gastrointestinal Disorders: Yes (GI bleed) Hx Diverticulitis: Yes Hx Gastroesophageal Reflux: Yes - GENITOURINARY/GYNECOLOGICAL Hx Genitourinary Disorders: Yes Hx Hematuria: Yes Hx Urinary Tract Infection: Yes Other/Comment: nephrostomy surgery - PSYCHIATRIC Hx Psychophysiologic Disorder: Yes Hx Anxiety: Yes Hx Depression: Yes Hx Emotional Abuse: No Hx Physical Abuse: No Hx Substance Use: No - SURGICAL HISTORY Hx Cardiac Catheterization: Yes Hx Coronary Stent: Yes Hx Hysterectomy: Yes Other/Comment: nephrostomy tubes,CARDIAC STENTS ,HYSTERECTOMY,RIGHT ANKLE FX, - ANESTHESIA Hx Anesthesia: Yes Hx Anesthesia Reactions: Yes (NAUSEA) Hx Malignant Hyperthermia: No Meds Allergies/Adverse Reactions: Allergies Allergy/AdvReac Type Severity Reaction Status Date / Time No Known Allergies Allergy Verified 04/12/18 23:20 - Medications Medications: Current Medications Albuterol Sulfate (Albuterol 0.083% Inhal Viviane (2.5 Mg/3 Ml) Ud) 2.5 mg INH [id number] PRN PRN Reason: Shortness of Breath Arformoterol Tartrate (Brovana) 15 mcg IH [id number] [facility] Last Admin: 04/29/18 07:38 Dose: 15 mcg Ascorbic Acid (Vitamin C 500 Mg Tab) 1,000 mg PO DAILY [facility] Last Admin: 04/29/18 10:05 Dose: 1,000 mg Benzonatate (Tessalon Perles) 100 mg PO TID [facility] Last Admin: 04/29/18 10:05 Dose: 100 mg Budesonide (Pulmicort Respules) 0.25 mg IH [id number] [facility] Last Admin: 04/29/18 07:38 Dose: 0.25 mg Camphor/Menthol (Bengay) 0.5 gm TOP QID PRN PRN Reason: Bladder Spasm Last Admin: 04/25/18 21:18 Dose: 0.5 gm Docusate Sodium (Colace) 100 mg PO BID [facility] Last Admin: 04/29/18 10:05 Dose: Not Given Enoxaparin Sodium (Lovenox) 30 mg SC DAILY [facility]; Protocol Last Admin: 04/29/18 10:04 Dose: 30 mg Ergocalciferol (Drisdol 50,000 Intl Units Cap) 1 cap PO FRI [facility] Last Admin: 04/26/18 09:55 Dose: 1 cap Home Med (Home Med) 2 unit PO BID [facility] Last Admin: 04/29/18 10:04 Dose: 2 unit Piperacillin Sod/Tazobactam Sod (Zosyn 3.375 In Ns 100ml) 100 mls @ 25 mls/hr IVPB Q12 [facility]; Protocol Stop: 05/03/18 10:01 Last Admin: 04/29/18 10:06 Dose: 25 mls/hr Loperamide HCl (Imodium) 2 mg PO Q8 PRN PRN Reason: diarrhea, loose stools Last Admin: 04/29/18 06:19 Dose: 2 mg Ondansetron HCl (Zofran Inj) 4 mg IVP Q6H PRN PRN Reason: Nausea/Vomiting Last Admin: 04/26/18 17:50 Dose: 4 mg Oxycodone/Acetaminophen (Percocet 5/325 Mg Tab) 1 tab PO Q6H PRN PRN Reason: Pain, severe (8-10) Stop: 04/30/18 15:12 Last Admin: 04/28/18 05:50 Dose: 1 tab Pantoprazole Sodium (Protonix Ec Tab) 40 mg PO 0600 [facility] Last Admin: 04/29/18 05:37 Dose: 40 mg Polyethylene Glycol (Miralax) 17 gm PO BID [facility] Last Admin: 04/29/18 10:06 Dose: Not Given Pregabalin (Lyrica) 25 mg PO BID [facility] Last Admin: 04/29/18 10:04 Dose: 25 mg Promethazine HCl/Codeine (Phenergan/Codeine Oral Syrup) 5 ml PO Q6H PRN PRN Reason: Cough Last Admin: 04/28/18 20:34 Dose: 5 ml Saliva Substitute (Saliva Substitute) 0.5 ml PO QID [facility] Last Admin: 04/29/18 10:05 Dose: 0.5 ml Sertraline HCl (Zoloft) 25 mg PO QAM [facility] Last Admin: 04/29/18 10:04 Dose: 25 mg Sucralfate (Carafate Oral Susp) 1 gm PO 0630,1130,1630,2200 [facility] Last Admin: 04/29/18 05:37 Dose: 1 gm Results - Vital Signs Recent Vital Signs: Last Vital Signs Temp 97.9 F 04/29/18 06:00 Pulse 82 04/29/18 06:00 Resp 18 04/29/18 06:00 BP 137/88 04/29/18 06:00 Pulse Ox 97 04/29/18 06:00 - Labs Result Diagrams: 04/29/18 08:30 04/29/18 08:30 Labs: Laboratory Results - last 24 hr 04/29/18 04/29/18 08:30 08:30 WBC 5.2 D RBC 3.37 L Hgb 9.7 L Hct 31.9 L MCV 94.7 MCH 28.8 MCHC 30.4 L RDW 14.9 H Plt Count 245 MPV 9.3 Gran % 73.4 H Lymph % (Auto) 13.7 L Wake % (Auto) 7.1 H Eos % (Auto) 4.8 Baso % (Auto) 1.0 Gran # 3.85 Lymph # (Auto) 0.7 L Wake # (Auto) 0.4 Eos # (Auto) 0.3 Baso # (Auto) 0.05 Sodium 143 Potassium 4.4 Chloride 108 H Carbon Dioxide 28 Anion Gap 11 BUN 18 Creatinine 1.7 H Est GFR ( Amer) 36 Est GFR (Non-Af Amer) 30 Random Glucose 89 Calcium 9.4 Total Bilirubin 0.2 AST 26 ALT 25 Alkaline Phosphatase 82 Total Protein 7.4 Albumin 3.8 Globulin 3.6 Albumin/Globulin Ratio 1.1
--- NOTE | 2018-04-30 11:32 | CP.PCM.PCO ---
Physician Communication Note - Physician Communication Note Physician Communication Note: patient cleared by pulmonary/ID/vascular for dc home
--- NOTE | 2018-04-30 12:17 | PN ---
DATE: 04/30/2018 PULMONARY PROGRESS NOTE REFERRING PHYSICIAN: Evaristo Saldivar MD SUBJECTIVE: The patent is sitting up in bed. No acute distress. No overnight events reported. The patient had radiation therapy yesterday, is scheduled for radiation today. Reports having some cough on occasion, shortness of breath with exertion. No headache, rhinitis, chest pain, abdominal pain, nausea, vomiting, leg pain or leg swelling reported. The patient reports having occasional loose stool. Stool for C. diff is collected and is negative. OBJECTIVE: GENERAL: No acute distress. VITAL SIGNS: Blood pressure 151/99, pulse 95, temperature 98.2, and oxygen saturation 99%. HEENT: Moist mucous membranes. Crowded airway. NECK: Supple. No JVD. LUNGS: Scattered rhonchi bilaterally. CARDIOVASCULAR: S1 and S2, audible. ABDOMEN: Soft and nontender. No distension. No organomegaly. EXTREMITIES: No bilateral lower extremity edema. NEUROLOGIC: Awake, alert, and verbal. Follows commands. MEDICATIONS: Reviewed. Albuterol 2.5 mg inhalation every 6 hours p.r.n., Brovana 15 mcg every 12 hours, vitamin C 1000 mg daily, Tessalon Perles 100 mg 3 times a day, Pulmicort 0.25 mg inhalation every 12 hours, Bengay topically 4 times a day p.r.n., Colace 100 mg twice a day, Lovenox 30 mg subcutaneously daily, ergocalciferol 50,000 units every week, Imodium 2 mg every 8 hours p.r.n., Zofran 4 mg IV push every 6 hours p.r.n., Percocet 5/325 mg every 6 hours p.r.n., Protonix 40 mg daily, Zosyn 3.375 g every 12 hours, MiraLax 17 g twice a day, Lyrica 25 mg p.o. twice a day, Phenergan with codeine 5 mL p.o. every 6 hours p.r.n., saliva substitute 4 times a day, Zoloft 25 mg daily and Carafate 1 g four times a day. LABORATORY DATA: Reviewed. Urine culture preliminary no growth. C. diff final negative. IMPRESSION AND PLAN: Metastatic cervical cancer with metastasis to the lung having external compression to the bronchus; history of renal failure requiring bilateral nephrostomy drainage, coronary artery disease; history of coronary stents; bronchitis; obstructive sleep apnea syndrome; pulmonary hypertension; history of Watkins's esophagus. Pulmonary point of view, continue inhaled bronchodilators, gastric prophylaxis, deep venous thrombosis prophylaxis, continue cough suppressant. The patient is currently undergoing radiation therapy. Oncology followup. This patient was seen and examined with Dr. Reis. Discussed assessment and plan as described above. Thank you for this consult and we will follow with you. Hira PrVINCENT wall Debby Reis MD
--- NOTE | 2018-04-30 12:35 | CT ---
Date of service: 04/30/2018 PROCEDURE: CT HEAD WITHOUT CONTRAST. HISTORY: r/o mets COMPARISON: 08/28/2014 TECHNIQUE: Axial computed tomography images were obtained through the head/brain without intravenous contrast. Radiation dose: Total exam DLP = 811.43 mGy-cm. This CT exam was performed using one or more of the following dose reduction techniques: Automated exposure control, adjustment of the mA and/or kV according to patient size, and/or use of iterative reconstruction technique. FINDINGS: HEMORRHAGE: No intracranial hemorrhage. BRAIN: No mass effect or edema. Chronic microvascular changes are seen in the periventricular white matter right greater than left. VENTRICLES: Unremarkable. No hydrocephalus. CALVARIUM: Unremarkable. PARANASAL SINUSES: Unremarkable as visualized. No significant inflammatory changes. MASTOID AIR CELLS: Unremarkable as visualized. No inflammatory changes. OTHER FINDINGS: None. IMPRESSION: No acute intracranial findings
--- NOTE | 2018-04-30 12:55 | CP.PCM.PN ---
Subjective - Date & Time of Evaluation Date of Evaluation: 04/29/18 Time of Evaluation: 11:35 - Subjective Subjective: Did not see patient but reviewed urine cx from 04/29 which are negative. Discussed with nurse that patient did not have fevers, is comfortable. Objective - Vital Signs/Intake and Output Vital Signs (last 24 hours): Temp Pulse Resp BP Pulse Ox 97.9 F 84 20 126/87 96 04/28/18 06:00 04/28/18 06:00 04/28/18 06:00 04/28/18 06:00 04/28/18 06:00 Intake and Output: 04/28/18 04/28/18 06:59 18:59 Intake Total 580 Output Total 700 Balance -120 - Medications Medications: Current Medications Albuterol Sulfate (Albuterol 0.083% Inhal Viviane (2.5 Mg/3 Ml) Ud) 2.5 mg INH [id number] PRN PRN Reason: Shortness of Breath Arformoterol Tartrate (Brovana) 15 mcg IH [id number] [facility] Last Admin: 04/28/18 07:18 Dose: 15 mcg Ascorbic Acid (Vitamin C 500 Mg Tab) 1,000 mg PO DAILY [facility] Last Admin: 04/28/18 10:20 Dose: 1,000 mg Benzonatate (Tessalon Perles) 100 mg PO TID [facility] Last Admin: 04/28/18 10:20 Dose: 100 mg Budesonide (Pulmicort Respules) 0.25 mg IH [id number] [facility] Last Admin: 04/28/18 07:18 Dose: 0.25 mg Camphor/Menthol (Bengay) 0.5 gm TOP QID PRN PRN Reason: Bladder Spasm Last Admin: 04/25/18 21:18 Dose: 0.5 gm Docusate Sodium (Colace) 100 mg PO BID [facility] Last Admin: 04/28/18 09:44 Dose: Not Given Enoxaparin Sodium (Lovenox) 30 mg SC DAILY [facility]; Protocol Last Admin: 04/28/18 10:37 Dose: 30 mg Ergocalciferol (Drisdol 50,000 Intl Units Cap) 1 cap PO FRI [facility] Last Admin: 04/26/18 09:55 Dose: 1 cap Home Med (Home Med) 2 unit PO BID [facility] Last Admin: 04/28/18 10:37 Dose: 2 unit Piperacillin Sod/Tazobactam Sod (Zosyn 3.375 In Ns 100ml) 100 mls @ 25 mls/hr IVPB Q12 [facility]; Protocol Stop: 05/03/18 10:01 Last Admin: 04/28/18 10:38 Dose: 25 mls/hr Loperamide HCl (Imodium) 2 mg PO Q8 PRN PRN Reason: diarrhea, loose stools Last Admin: 04/28/18 08:33 Dose: 2 mg Ondansetron HCl (Zofran Inj) 4 mg IVP Q6H PRN PRN Reason: Nausea/Vomiting Last Admin: 04/26/18 17:50 Dose: 4 mg Oxycodone/Acetaminophen (Percocet 5/325 Mg Tab) 1 tab PO Q6H PRN PRN Reason: Pain, severe (8-10) Stop: 04/30/18 15:12 Last Admin: 04/28/18 05:50 Dose: 1 tab Pantoprazole Sodium (Protonix Ec Tab) 40 mg PO 0600 [facility] Last Admin: 04/28/18 05:50 Dose: 40 mg Polyethylene Glycol (Miralax) 17 gm PO BID [facility] Last Admin: 04/28/18 09:44 Dose: Not Given Pregabalin (Lyrica) 25 mg PO BID [facility] Last Admin: 04/28/18 10:20 Dose: 25 mg Promethazine HCl/Codeine (Phenergan/Codeine Oral Syrup) 5 ml PO Q6H PRN PRN Reason: Cough Last Admin: 04/28/18 10:38 Dose: 5 ml Saliva Substitute (Saliva Substitute) 0.5 ml PO QID [facility] Last Admin: 04/28/18 09:45 Dose: 0.5 ml Sertraline HCl (Zoloft) 25 mg PO QAM [facility] Last Admin: 04/28/18 10:20 Dose: 25 mg Sucralfate (Carafate Oral Susp) 1 gm PO 0630,1130,1630,2200 [facility] Last Admin: 04/28/18 11:19 Dose: 1 gm - Labs Labs: 04/28/18 05:00 04/28/18 05:00 PT 12.2 SECONDS (9.4-12.5) 04/22/18 16:38 INR 1.07 04/22/18 16:38 APTT 30.8 Seconds (25.1-36.5) 04/22/18 16:38 Assessment and Plan - Assessment and Plan (Free Text) Plan: Assessment probable complicated UTI with E. coli and E. faecalis, in this patient with indwelling right sided nephrostomy tube presenting with hematuria - repeat urine cx negative history of Urinary tract infection with Klebsiella oxytoca history of pseudomonas, Klebsiella and Enterococcus faecalis UTI enterococcus and pseudomonas UTI in the past cervical cancer S/P chemotherapy and radiation therapy with history or radiation cystitis history of transient ischemic attack GERD coronary artery disease sleep apnea history of psoriasis history of diverticulitis history of depression chronic renal failure S/P nephrostomy tube placement Plan on Zosyn (day 4) and since repeat urine cx are negative we can d/c antibiotics, with outpatient follow up with Dr. Ford
--- NOTE | 2018-04-30 13:31 | CP.PCM.PCO ---
Physician Communication Note - Physician Communication Note Physician Communication Note: consult with Dr. Pickett pending for difficulty swallowing and pain.
--- NOTE | 2018-04-30 14:04 | PQF ---
PROVIDER RESPONSE TEXT: Yes, associated with nephrostomy tube REVIEWER QUERY TEXT: Cause and Effect Relationship Please clarify in documentation the relationship, if any, between UTI and _nephrostomy tubes Such as: -- Conditions are due to or associated -- Unrelated to each other -- Other, please specify The patient's Clinical Indicators include: Patient found to have ecoli UTI. Documentation noted as "complicated UTI with right sided nephrostomy tube". Please clarify if the UTI is a catheter associated infection. Query created by: Agnieszka Allen on 04/30/2018 10:09 AM Electronically signed by: Abelino Man MD 04/30/2018 2:01 PM
[2018-04-30] MEDS ORDERED: Oxycodone/Acetaminophen 2.5/325 mg Tab PO PRN (20:49)
[2018-04-30] MEDS: Morphine 2 mg/ml ISec IVP PRN (21:08)
[2018-05-01] MEDS: Sucralfate 1 gm/10 ml Oral Susp UD PO SCH ×4 (06:27→21:50)
[2018-05-01] MEDS: Pantoprazole 40 mg EC Tab PO SCH (06:27)
[2018-05-01] MEDS: Arformoterol 15 mcg/2 ml Inh Sol IH SCH ×2 (07:40→19:46)
[2018-05-01] MEDS: Budesonide 0.25 mg/2 ml Inhal Susp UD IH SCH ×2 (07:40→19:46)
--- NOTE | 2018-05-01 09:32 | CP.PCM.CON ---
History of Present Illness - History of Present Illness History of Present Illness: GI Consult for Dr. Sumner Reason for Consultation: Odynophagia Patient is a 67 yo F with PMH of stage 3 cervical cancer s/p chemoradiation, CAD s/p stenting, CKD, h/o nephrostomy tubes, radiation cystitis, psoriasis, depression, and stercoral rectal ulcer is admitted to [facility] due to dyspnea on exertion, cough, and complicated UTI. GI was consulted due to odynophagia and dysphagia. Patient states that she has dysphagia to solids and liquids for the last year. Patient states that it feels like food gets stuck in her throat and has to cough it up. Patient states the pain in throat is sharp and an 8/10. Patient is worried that it may be due to the radiation she is getting for her cervical cancer. Currently, patient admits to productive cough, but denies CP, SOB, n/v/d, abdominal pain, fever, chills, VALENCIA, or dizziness. PMH: stage 3 cervical cancer s/p chemoradiation, CAD s/p stenting, CKD, h/o nephrostomy tubes, radiation cystitis, psoriasis, depression, and stercoral rectal ulcer Surg: Cardiac stenting x4, bilateral nephrostomy tubes, hysterectomy, ankle ORIF All: NKDA SH: Former heavy smoker, denies EtOH and illicit drug use FHx: Denied GI history Medications reviewed as per [facility] Review of Systems - Review of Systems All systems: reviewed and no additional remarkable complaints except (12 point ROS reviewed and is negative other than what is sated in HPI.) Past Patient History - Infectious Disease Hx of Infectious Diseases: None - Tetanus Immunizations Tetanus Immunization: Unknown - Past Medical History & Family History Past Medical History?: Yes - Past Social History Smoking Status: Former Smoker - CARDIAC Hx Cardiac Disorders: Yes (cad stent x4) Hx Hypertension: Yes Hx Mitral Valve Prolapse: Yes Hx Pacemaker: No - PULMONARY Hx Respiratory Disorders: Yes Hx Asthma: No Hx Bronchitis: Yes Hx Sleep Apnea: Yes - NEUROLOGICAL Hx Neurological Disorder: Yes (tympanic tubes) Hx Dizziness: Yes Hx Transient Ischemic Attacks (TIA): Yes (20yrs ago) - HEENT Hx HEENT Problems: Yes (glasses) Other/Comment: left tympanic tubes placed - RENAL Hx Chronic Kidney Disease: Yes Hx Kidney Stones: Yes Hx Renal Failure: Yes Other/Comment: Nephrostomy tubes bilateral, 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 - ENDOCRINE/METABOLIC Hx Endocrine Disorders: No - HEMATOLOGICAL/ONCOLOGICAL Hx Blood Disorders: Yes Hx Anemia: Yes (WITH BLOOD TRANSFUSION) Hx Cancer: Yes (Cervical with mets) Hx Chemotherapy: Yes (and radiation) Hx Metastesis: Yes (chest mass) - INTEGUMENTARY Hx Dermatological Problems: Yes Hx Eczema: Yes Hx Psoriasis: Yes - MUSCULOSKELETAL/RHEUMATOLOGICAL Hx Musculoskeletal Disorders: Yes (r ankle/ R WRIST FX R/T FALL 06/2015) Hx Falls: No Hx Fractures: Yes (right wrist, right ankle) - GASTROINTESTINAL Hx Gastrointestinal Disorders: Yes (GI bleed) Hx Diverticulitis: Yes Hx Gastroesophageal Reflux: Yes - GENITOURINARY/GYNECOLOGICAL Hx Genitourinary Disorders: Yes Hx Hematuria: Yes Hx Urinary Tract Infection: Yes Other/Comment: nephrostomy surgery - PSYCHIATRIC Hx Psychophysiologic Disorder: Yes Hx Anxiety: Yes Hx Depression: Yes Hx Emotional Abuse: No Hx Physical Abuse: No Hx Substance Use: No - SURGICAL HISTORY Hx Cardiac Catheterization: Yes Hx Coronary Stent: Yes Hx Hysterectomy: Yes Other/Comment: nephrostomy tubes,CARDIAC STENTS ,HYSTERECTOMY,RIGHT ANKLE FX, - ANESTHESIA Hx Anesthesia: Yes Hx Anesthesia Reactions: Yes (NAUSEA) Hx Malignant Hyperthermia: No Meds Allergies/Adverse Reactions: Allergies Allergy/AdvReac Type Severity Reaction Status Date / Time No Known Allergies Allergy Verified 04/12/18 23:20 - Medications Medications: Current Medications Albuterol Sulfate (Albuterol 0.083% Inhal Viviane (2.5 Mg/3 Ml) Ud) 2.5 mg INH Q 6HRESP PRN PRN Reason: Shortness of Breath Arformoterol Tartrate (Brovana) 15 mcg IH [id number] [facility] Last Admin: 05/01/18 07:40 Dose: 15 mcg Ascorbic Acid (Vitamin C 500 Mg Tab) 1,000 mg PO DAILY [facility] Last Admin: 04/30/18 10:33 Dose: 1,000 mg Benzonatate (Tessalon Perles) 100 mg PO TID [facility] Last Admin: 04/30/18 17:19 Dose: 100 mg Budesonide (Pulmicort Respules) 0.25 mg IH [id number] [facility] Last Admin: 05/01/18 07:40 Dose: 0.25 mg Camphor/Menthol (Bengay) 0.5 gm TOP QID PRN PRN Reason: Bladder Spasm Last Admin: 04/25/18 21:18 Dose: 0.5 gm Al Hydrox/Mg Hydrox/Simethicone 30 ml/Diphenhydramine HCl 75 mg/Lidocaine 30 ml 0 ml PO Q2H PRN PRN Reason: Mouth/Throat Pain Docusate Sodium (Colace) 100 mg PO BID [facility] Last Admin: 04/30/18 10:34 Dose: Not Given Enoxaparin Sodium (Lovenox) 30 mg SC DAILY [facility]; Protocol Last Admin: 04/30/18 10:33 Dose: 30 mg Ergocalciferol (Drisdol 50,000 Intl Units Cap) 1 cap PO FRI [facility] Last Admin: 04/26/18 09:55 Dose: 1 cap Home Med (Home Med) 2 unit PO BID [facility] Last Admin: 04/30/18 17:20 Dose: 2 unit Loperamide HCl (Imodium) 2 mg PO Q8 PRN PRN Reason: diarrhea, loose stools Last Admin: 04/30/18 17:19 Dose: 2 mg Morphine Sulfate (Morphine) 2 mg IVP Q3H PRN PRN Reason: Pain, severe (8-10) Last Admin: 04/30/18 21:08 Dose: 2 mg Ondansetron HCl (Zofran Inj) 4 mg IVP Q6H PRN PRN Reason: Nausea/Vomiting Last Admin: 04/26/18 17:50 Dose: 4 mg Oxycodone/Acetaminophen (Percocet 2.5/325 Mg Tab) 1 tab PO Q4H PRN PRN Reason: Pain, moderate (4-7) Pantoprazole Sodium (Protonix Ec Tab) 40 mg PO 0600 [facility] Last Admin: 05/01/18 06:27 Dose: 40 mg Polyethylene Glycol (Miralax) 17 gm PO BID [facility] Last Admin: 04/30/18 10:34 Dose: Not Given Pregabalin (Lyrica) 25 mg PO BID [facility] Last Admin: 04/30/18 17:19 Dose: 25 mg Promethazine HCl/Codeine (Phenergan/Codeine Oral Syrup) 5 ml PO Q6H PRN PRN Reason: Cough Last Admin: 04/30/18 03:21 Dose: 5 ml Saliva Substitute (Saliva Substitute) 0.5 ml PO QID [facility] Last Admin: 04/30/18 23:03 Dose: 0.5 ml Sertraline HCl (Zoloft) 25 mg PO QAM [facility] Last Admin: 04/30/18 10:33 Dose: 25 mg Sucralfate (Carafate Oral Susp) 1 gm PO 0630,1130,1630,2200 [facility] Last Admin: 05/01/18 06:27 Dose: 1 gm Physical Exam - Constitutional Appears: No Acute Distress - Head Exam Head Exam: ATRAUMATIC, NORMAL INSPECTION, NORMOCEPHALIC - Eye Exam Eye Exam: EOMI, Normal appearance, PERRL - ENT Exam ENT Exam: Mucous Membranes Moist, Normal Exam, Normal Oropharynx - Neck Exam Neck exam: Positive for: Normal Inspection - Respiratory Exam Respiratory Exam: Clear to Auscultation Bilateral. absent: Rales, Rhonchi, Wheezes - Cardiovascular Exam Cardiovascular Exam: RRR, +S1, +S2. absent: Diastolic murmur, Gallop, Rubs, Systolic Murmur - GI/Abdominal Exam GI & Abdominal Exam: Soft. absent: Distended, Guarding, Rebound, Tenderness - Extremities Exam Extremities exam: Positive for: normal inspection - Back Exam Additional comments: right nephrostomy tube in place - Neurological Exam Neurological exam: Alert, CN II-XII Intact, Oriented x3 - Psychiatric Exam Psychiatric exam: Normal Affect, Normal Mood - Skin Skin Exam: Normal Color, Warm Results - Vital Signs Recent Vital Signs: Last Vital Signs Temp 98.1 F 05/01/18 08:07 Pulse 94 H 05/01/18 08:07 Resp 20 05/01/18 08:07 BP 141/83 05/01/18 08:07 Pulse Ox 95 05/01/18 08:07 - Labs Result Diagrams: 04/29/18 08:30 04/29/18 08:30 Assessment & Plan - Assessment and Plan (Free Text) Assessment: 67 yo F with PMH of stage 3 cervical cancer s/p chemoradiation, CAD s/p stenting, CKD, h/o nephrostomy tubes, radiation cystitis, psoriasis, depression, and stercoral rectal ulcer is admitted for dyspnea on exertion, cough, and complicated UTI. GI consulted due to odynophagia and dysphagia. Esophagram (04/15/18) was unremarkable. CT of neck, chest, abdomen, and pelvis (04/12/18) was negative. EGD (10/30/17): Watkins's Esophagus C0M2, gastric stenosis and pylorus Colonoscopy (12/24/17): single ulcer in rectum, limited exam due to poor prep 1. Dysphagia/Odynophagia 2. Anemia of chronic disease 3. Stage 3 cervical cancer with metastasis to lung 4. Complicated UTI Plan: - Would benefit from EGD - Recommend ENT evaluation - Antibiotics per ID - Further medical management per primary Patient seen and discussed in detail with Dr. Sumner. Rosendo Ashby DO PGY2
[2018-05-01] MEDS: Enoxaparin 30 mg Syringe SC SCH (09:46)
[2018-05-01] MEDS: Saliva Substitute 44.3 ML PO SCH ×4 (09:47→22:31)
[2018-05-01] MEDS: POLYETHYLENE GLYCOL 3350 17 GM/Dose PACKET PO SCH ×2 (09:48→18:14)
[2018-05-01] MEDS: Promethazine/Cod 6.25mg-10mg/5ml Syr UD PO PRN ×2 (09:51→20:45)
--- NOTE | 2018-05-01 14:27 | PN ---
DATE: 05/01/2018 PULMONARY PROGRESS NOTE REFERRING PHYSICIAN: Evaristo Saldivar MD SUBJECTIVE: The patent is sitting up in bed. No acute distress. No overnight events reported. The patient was seen by GI today due to complaints of difficulty. No headache, rhinitis, chest pain, abdominal pain, nausea, vomiting, diarrhea, leg pain or leg swelling reported. The patient does report having occasional cough. OBJECTIVE: GENERAL: No acute distress. VITAL SIGNS: Blood pressure 141/83, pulse 94, temperature 98.1, and oxygen saturation 95%. HEENT: Moist mucous membranes. Crowded airway. NECK: Supple. No JVD. LUNGS: Fair airflow bilaterally. CARDIOVASCULAR: S1 and S2, audible. ABDOMEN: Soft and nontender. No distension. No organomegaly. EXTREMITIES: Bilateral lower extremity edema. NEUROLOGIC: Awake, alert, and verbal. Follows commands. . MEDICATIONS: Reviewed. Albuterol 2.5 mg inhalation every 6 hours p.r.n., Brovana 15 mcg every 12 hours, vitamin C 1000 mg daily, Tessalon Perles 100 mg three times a day, Pulmicort 0.25 mg inhalation every 12 hours, BenGay topically four times a day p.r.n., Colace 100 mg twice a day, Lovenox 30 mg subcu daily, ergocalciferol 50,000 units one cap weekly, Imodium 10 mg every 8 hours p.r.n., Solu-Medrol 20 mg every 12 hours, morphine 2 mg intravenous push every 3 hours p.r.n., Zofran 4 mg every 6 hours p.r.n., Percocet 2.5/325 mg one tablet every 4 hours p.r.n. moderate pain, Protonix 40 mg daily, MiraLax 17 g twice a day, Lyrica 25 mg twice a day, Phenergan with codeine 5 mL every 6 hours p.r.n., saliva substitute 4 times a day, Zoloft 25 mg daily and Carafate 1 g four times a day. LABORATORY DATA: Reviewed. Head CT shows no acute intracranial findings. IMPRESSION AND PLAN: Metastatic cervical cancer with metastasis to the lung having external compression to the bronchus; history of renal failure requiring bilateral nephrostomy drainage, coronary artery disease; history of coronary stents; bronchitis; obstructive sleep apnea syndrome; pulmonary hypertension; history of Watkins's esophagus. The patient refuses to use continuous positive airway pressure machine presently. Continue inhaled bronchodilators, gastric prophylaxis, deep venous thrombosis prophylaxis, continue cough suppressant. Continue follow up with Gastroenterology. The patient is currently undergoing radiation therapy. Need to monitor the patient for radiation and its complication such as pneumonitis. The patient will need full pulmonary function test as outpatient. This patient was seen and examined with Dr. Reis. Discussed assessment and plan as described above. Thank you for this consult and we will follow up with you. Hira Adame APN Debby Reis MD [facility]
[2018-05-01] MEDS: MethylPREDNISolone 40 mg Vial IVP SCH ×2 (16:31→21:50)
[2018-05-01] MEDS: TRANEXAMIC ACID 650 MG PO SCH ×3 (16:34→18:14)
--- NOTE | 2018-05-01 18:55 | CON ---
DATE: 05/01/2018 CONSULT SERVICE: Cardiology. REASON FOR CONSULTATION: Cardiac evaluation, history of coronary artery disease, admitted with metastatic cervical cancer with metastasis to the lung pressing the bronchial tree, cough expectoration, and chest pain. 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 PAST MEDICAL HISTORY: Significant for cervical cancer with metastasis, status post chemo, status post radiation, history of coronary artery disease, history of chronic renal insufficiency, history of nephrostomy tube, history of radiation cystitis and psoriasis, history of depression, history of vesicovaginal fistula; admitted with cough and shortness of breath, bringing phlegm and blood-tinged sputum. Cardiology consult is called for cardiac evaluation. Past history as mentioned; history of cervical cancer with metastasis, vesicovaginal fistula, now mets to the lung. History of recently bilateral nephrostomy, history of hydronephrosis obstruction to the urethra with the cervical cancer. PREVIOUS CARDIAC WORKUP: As follows; the patient has a stress test on 05/15/2016 that shows equivocal result, cannot rule out the shifting position of the breast, ejection fraction of 63%, dated 05/15/2015. History of last echo done on 04/14/2018 that shows ejection fraction 55% to 60%, [id number] mitral regurgitation, mild tricuspid regurgitation, RV systolic pressure of 49, [id number] pulmonary hypertension, and history of PTCA in the past. Cardiac catheterization not proceeded because of underlying malignancy and the patient is not willing and asymptomatic. SOCIAL HISTORY: Denies any smoking. Denies any history of alcohol abuse. CURRENT MEDICATIONS: The patient is taking vitamin E, tranexamic acid, Zoloft, codeine, Colace, and ascorbic acid. REVIEW OF SYSTEMS: As per HPI. Denies any chest pain, but complains of cough and chest hurts in the front of the chest where the mass is there and sometime the shoulder also hurts because of the coughing; otherwise, negative and as per HPI. PHYSICAL EXAMINATION: GENERAL: Height of the patient 5 feet 2 inches, weight of the patient 142 pounds, and body mass index 26.1 kg/m2. VITAL SIGNS: Temperature afebrile, heart rate 94, and blood pressure 141/83. HEENT: PERRLA. Extraocular muscles intact. NECK: Supple. No carotid bruit or thyromegaly. CHEST: Clear to auscultation. HEART: S1 and S2 regular. ABDOMEN: Soft. EXTREMITIES: Clubbing and cyanosis negative. LABORATORY DATA: Blood workup as follows; WBC 5.8, hemoglobin 9.6, hematocrit 31.9, and platelet count 245. Chemistry shows sodium 140, potassium 4.4, chloride 108, carbon dioxide 28, anion gap of 11, BUN 18, and creatinine 1.7. Chest x-ray on admission showed no change from previous admission. EKG on admission showed normal sinus voltage criteria, minimum LVH, and poor RR progression. IMPRESSION: A 67-year-old female with past medical history significant for coronary artery disease, status post stent in the past, history of metastatic cervical cancer, history of vesicovaginal fistula, history of genitourinary bleed in the past, now metastasis to the lung with external compression of the bronchus. Symptom is most likely from the compression of the tumor to the lung, bringing the phlegm and occasional hemoptysis, which is controlled now. History of acute renal failure, bilateral nephrostomy because of the tumor involving both urethra; history of coronary artery disease, no evidence of ischemia, history of coronary artery disease stable. Last echocardiogram shows preserved left ventricular function. RECOMMENDATIONS: Continue treatment for COPD. Continue steroid. Continue DVT prophylaxis. The patient is not on aspirin because of the hemoptysis. We will put low dose of aspirin as hemoptysis is tolerated. CVA status is stable. The patient is currently getting radiation for the tumor mass with chemo. We will follow with you. Last time, MUGA scan was suggested; we will review whether the patient had a MUGA scan done or not. If no MUGA scan done, we will order the MUGA scan. Overall, the patient's condition is critical. Long-term prognosis is guarded. Thank you Dr. Saldivar for providing us the opportunity in taking care of the patient, Glenna Kitchen. Debby Oliva MD
[2018-05-01] MEDS: Morphine 2 mg/ml ISec IVP PRN (20:30)
--- NOTE | 2018-05-02 00:16 | CARD ---
APPROVED REPORT Date of service: 05/01/2018 INDICATION EVALUATE LVEF% PROCEDURE The above named patient recieved 20.7 millicuries of Tc99m tagged red blood cells intravenously. After achieving equilibrium, gated imaging of 16/frame/cycle was performed utillizing Gamma camera interfaced with a digital computer and gated device. Gated imaging was then performed in the left anterior oblique, anterior, and the left lateral projections. Findings Calculated LV Ejection Fraction is 62%. Impressions Calculated Ejection Fraction is 62 %.
--- NOTE | 2018-05-02 04:10 | PN ---
DATE: 05/01/2018 ONCOLOGY PROGRESS NOTE LOCATION: The patient is in room 360, bed 1. SUBJECTIVE: The patient is sitting up in bed, has been complaining of increasing odynophagia with complaint of congestion and pain, especially, exquisite tenderness on the right side of the neck which has been evolving over the last few days. The patient is concerned that her neck swelling has gotten worse, specifically since the initiation of the radiation. The patient is being seen by GI for her odynophagia. The patient may need evaluation at least with barium swallow, upper endoscopy if her symptoms continue to worsen. The patient was recommended ENT but she refused to see the ENT specialist. The patient is on ongoing radiation. Concern at this point and the reason for ongoing stay for the patient is that the patient may be developing evolving SVC that needs to be monitored. Because of increasing venous pressure from the tumor burden in the mediastinum, the patient could be developing early SVC syndrome. In addition to this, it may be contributing to the odynophagia and one important neck discomfort and the pain that the patient is experiencing on the right side of the neck. The patient has also been complaining of retrosternal discomfort which has been evaluated by the incident response lead who thinks most of her symptoms are from mechanical pressure than true cardiac issues at this point in time. Though the patient has significant cardiac issues, is status post stenting with four stents for coronary artery disease, the patient has been scheduled for a MUGA scan today, which could be done later if the patient agrees. The patient subjectively is complaining in addition to the pain and difficulty in swallowing, she is also complaining of some midsternal discomfort off and on. Appetite has decreased. She is not having any recent hemoptysis at this time though she has had hemoptysis prior to admission. PHYSICAL EXAMINATION: GENERAL: The patient is in no acute distress. VITAL SIGNS: Stable. Blood pressure is 140/83, pulse 94, T-max is 98.4, O2 saturation is 95%. HEENT: Head is normocephalic and atraumatic. Conjunctivae pale. Sclerae anicteric. Examination of the oropharynx reveals no oropharyngeal lesions. NECK: Reveals engorged neck veins with tenderness and palpable adenopathy in the right side of the neck, which is of concern to us. The patient is developing at least early SVC as the external jugular veins on both sides appeared to be distended. LUNGS: Relatively clear to percussion and auscultation. Decreased breath sounds on both sides. CARDIOVASCULAR SYSTEM: S1 and S2 to be normal. No gallop or murmur is heard. ABDOMEN: Soft and nontender. Liver and spleen are not palpable. No rebound, rigidity, or guarding is noted. EXTREMITIES: Show bilateral lower extremity edema. NEUROLOGIC: Reveal higher functions to be normal. No focal deficits are noted. The patient has bilateral nephrostomy catheters in place. Does not have any overt issues. MEDICATIONS: The patient's medications were reviewed. She is on albuterol 2.5 mg inhaled every 6 hours, Brovana 15 mcg inhaled every 12 hours, vitamin C 1000 mg daily, Tessalon Perles 100 mg three times a day, Pulmicort 0.25 mg inhalation every 12 hours, Bengay topically four times a day p.r.n., Colace 100 mg b.i.d., Lovenox 30 mg subcu daily, ergocalciferol 50,000 units one cap weekly, Imodium 10 mg every 8 hours p.r.n. for loose bowel movements, Solu-Medrol 20 mg IV every 12 hours, morphine 2 mg intravenously every 3 hours p.r.n., Zofran 4 mg IV every 6 hours p.r.n., Percocet 2.5/325 mg one tablet every 4 hours as needed for moderate pain. The patient is on Protonix 40 mg daily, MiraLax 17 g twice a day, Lyrica 25 mg b.i.d., Phenergan with codeine 5 mL every 6 hours, saliva substitute 4 times a day, Zofran 25 mg daily, and Carafate 1 g four times a day. LABORATORY DATA: Reviewed and unchanged. The patient has CT of the head, which showed no evidence of any metastasis. ASSESSMENT, NOTES, AND PLAN: The patient has recurrent progressive stage IV carcinoma of the cervix with documented recurrence in the mediastinum extending into the right hilum, inoperable at this time, currently on radiation. We will assess the patient for chemotherapy immediately after radiation is completed so as to not have comorbid issues create more problems for her with concurrent treatments. We will review her labs in the a.m. 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 We will speak to Dr. Reis about ordering test that could not be adversarial for her as her kidney functions are borderline, and the patient has bilateral nephrostomies with exchange catheters in them. In the meantime, we will clinically treat the patient with IV steroids, cough medication. Continue radiation and then assess the patient for systemic treatments with Avastin based complications plus or minus and anthracycline on this case because of her issues with her heart switched to different combination with Avastin and . Gudelia Ford MD
[2018-05-02] MEDS: Sucralfate 1 gm/10 ml Oral Susp UD PO SCH ×4 (05:46→22:40)
[2018-05-02] MEDS: Promethazine/Cod 6.25mg-10mg/5ml Syr UD PO PRN ×3 (05:46→22:41)
[2018-05-02] MEDS: Pantoprazole 40 mg EC Tab PO SCH (05:46)
[2018-05-02] MEDS: Albuterol 0.083% Inhal Sol (2.5 mg/3 mL) UD INH PRN ×2 (06:55→16:50)
[2018-05-02] MEDS: Arformoterol 15 mcg/2 ml Inh Sol IH SCH ×2 (07:00→20:15)
[2018-05-02] MEDS: Budesonide 0.25 mg/2 ml Inhal Susp UD IH SCH ×2 (07:00→20:15)
--- NOTE | 2018-05-02 08:47 | CP.PCM.PN ---
Subjective - Date & Time of Evaluation Date of Evaluation: 05/02/18 Time of Evaluation: 08:44 - Subjective Subjective: GI Progress Note for Dr. Sumner Patient seen and examined at bedside. No acute overnight events. Patient states that pain with swallowing is better. Patient reports diarrhea Patient denies CP, n/v, abdominal pain, fever, chills, VALENCIA, or dizziness. Objective - Vital Signs/Intake and Output Vital Signs (last 24 hours): Temp Pulse Resp BP Pulse Ox 97.4 F L 101 H 20 133/92 H 95 05/02/18 08:04 05/02/18 08:04 05/02/18 08:04 05/02/18 08:04 05/02/18 08:04 Intake and Output: 05/02/18 05/02/18 06:59 18:59 Intake Total 240 Output Total 575 Balance -335 - Medications Medications: Current Medications Albuterol Sulfate (Albuterol 0.083% Inhal Viviane (2.5 Mg/3 Ml) Ud) 2.5 mg INH [id number] PRN PRN Reason: Shortness of Breath Last Admin: 05/02/18 06:55 Dose: 2.5 mg Arformoterol Tartrate (Brovana) 15 mcg IH [id number] ON LICENSE OF [facility] Last Admin: 05/02/18 07:00 Dose: 15 mcg Ascorbic Acid (Vitamin C 500 Mg Tab) 1,000 mg PO DAILY ON LICENSE OF [facility] Last Admin: 05/01/18 09:46 Dose: 1,000 mg Benzocaine/Menthol (Cepacol Sore Throat) 1 devante MT Q2H PRN PRN Reason: Sore Throat Benzonatate (Tessalon Perles) 100 mg PO TID ON LICENSE OF [facility] Last Admin: 05/01/18 18:15 Dose: Not Given Budesonide (Pulmicort Respules) 0.25 mg IH [id number] ON LICENSE OF [facility] Last Admin: 05/02/18 07:00 Dose: 0.25 mg Camphor/Menthol (Bengay) 0.5 gm TOP QID PRN PRN Reason: Bladder Spasm Last Admin: 04/25/18 21:18 Dose: 0.5 gm Al Hydrox/Mg Hydrox/Simethicone 30 ml/Diphenhydramine HCl 75 mg/Lidocaine 30 ml 0 ml PO Q2H PRN PRN Reason: Mouth/Throat Pain Docusate Sodium (Colace) 100 mg PO BID ON LICENSE OF [facility] Last Admin: 05/01/18 18:14 Dose: Not Given Enoxaparin Sodium (Lovenox) 30 mg SC DAILY ON LICENSE OF [facility]; Protocol Last Admin: 05/01/18 09:46 Dose: 30 mg Ergocalciferol (Drisdol 50,000 Intl Units Cap) 1 cap PO FRI ON LICENSE OF [facility] Last Admin: 04/26/18 09:55 Dose: 1 cap Home Med (Home Med) 2 unit PO BID ON LICENSE OF [facility] Last Admin: 05/01/18 18:14 Dose: 2 unit Loperamide HCl (Imodium) 2 mg PO Q8 PRN PRN Reason: diarrhea, loose stools Last Admin: 05/02/18 08:32 Dose: 2 mg Methylprednisolone (Solu-Medrol) 20 mg IVP Q12 ON LICENSE OF [facility] Last Admin: 05/01/18 21:50 Dose: 20 mg Morphine Sulfate (Morphine) 2 mg IVP Q3H PRN PRN Reason: Pain, severe (8-10) Last Admin: 05/01/18 20:30 Dose: 2 mg Ondansetron HCl (Zofran Inj) 4 mg IVP Q6H PRN PRN Reason: Nausea/Vomiting Last Admin: 04/26/18 17:50 Dose: 4 mg Oxycodone/Acetaminophen (Percocet 2.5/325 Mg Tab) 1 tab PO Q4H PRN PRN Reason: Pain, moderate (4-7) Pantoprazole Sodium (Protonix Ec Tab) 40 mg PO 0600 ON LICENSE OF [facility] Last Admin: 05/02/18 05:46 Dose: 40 mg Polyethylene Glycol (Miralax) 17 gm PO BID ON LICENSE OF [facility] Last Admin: 05/01/18 18:14 Dose: Not Given Pregabalin (Lyrica) 25 mg PO BID ON LICENSE OF [facility] Last Admin: 05/01/18 18:14 Dose: 25 mg Promethazine HCl/Codeine (Phenergan/Codeine Oral Syrup) 5 ml PO Q6H PRN PRN Reason: Cough Last Admin: 05/02/18 05:46 Dose: 5 ml Saliva Substitute (Saliva Substitute) 0.5 ml PO QID ON LICENSE OF [facility] Last Admin: 05/01/18 22:31 Dose: 0.5 ml Sertraline HCl (Zoloft) 25 mg PO QAM ON LICENSE OF [facility] Last Admin: 05/01/18 09:47 Dose: 25 mg Sucralfate (Carafate Oral Susp) 1 gm PO 0630,1130,1630,2200 [facility] Last Admin: 05/02/18 05:46 Dose: 1 gm - Labs Labs: 04/29/18 08:30 04/29/18 08:30 PT 12.2 SECONDS (9.4-12.5) 04/22/18 16:38 INR 1.07 04/22/18 16:38 APTT 30.8 Seconds (25.1-36.5) 04/22/18 16:38 - Constitutional Appears: No Acute Distress - Head Exam Head Exam: NORMAL INSPECTION - Eye Exam Eye Exam: Normal appearance - ENT Exam ENT Exam: Mucous Membranes Moist, Normal Exam - Neck Exam Neck Exam: Tenderness (right side of neck) - Respiratory Exam Respiratory Exam: Clear to Ausculation Bilateral. absent: Rales, Rhonchi, Whee zes - Cardiovascular Exam Cardiovascular Exam: RRR. absent: Gallop, Rubs, Murmur - GI/Abdominal Exam GI & Abdominal Exam: Soft. absent: Firm, Guarding, Tenderness, Rebound - Extremities Exam Extremities Exam: Normal Inspection - Back Exam Additional comments: right nephrostomy tube - Neurological Exam Neurological Exam: Alert, Awake, Oriented x3 - Psychiatric Exam Psychiatric exam: Normal Affect - Skin Skin Exam: Normal Color Assessment and Plan - Assessment and Plan (Free Text) Assessment: 67 yo F with PMH of stage 4 cervical cancer s/p chemoradiation, CAD s/p stenting, CKD, h/o nephrostomy tubes, radiation cystitis, psoriasis, depression, and stercoral rectal ulcer is admitted for dyspnea on exertion, cough, and complicated UTI. GI consulted due to odynophagia and dysphagia. Esophagram (04/15/18) was unremarkable. CT of neck, chest, abdomen, and pelvis (04/12/18) was negative. EGD (10/30/17): Watkins's Esophagus C0M2, gastric stenosis and pylorus Colonoscopy (12/24/17): single ulcer in rectum, limited exam due to poor prep 1. Dysphagia/Odynophagia likely 2/2 radiation therapy 2. Anemia of chronic disease 3. Stage 4 cervical cancer with metastasis to lung 4. Complicated UTI Plan: - No GI intervention at this time symptoms likely 2/2 radiation therapy - Soft diet - Cont Maalox - Antibiotics per ID - Further medical management per primary Patient seen and discussed in detail with Dr. Sumner. Rosendo Ashby DO PGY2
[2018-05-02] MEDS: MethylPREDNISolone 40 mg Vial IVP SCH ×2 (09:14→22:43)
[2018-05-02] MEDS: POLYETHYLENE GLYCOL 3350 17 GM/Dose PACKET PO SCH ×2 (09:15→18:18)
[2018-05-02] MEDS: TRANEXAMIC ACID 650 MG PO SCH ×2 (09:15→18:18)
[2018-05-02] MEDS: Enoxaparin 30 mg Syringe SC SCH (09:15)
[2018-05-02] MEDS: Saliva Substitute 44.3 ML PO SCH ×4 (09:37→22:42)
[2018-05-02] MEDS: Benzocaine/Menthol (Cepacol) Lozenge MT PRN ×2 (09:44→18:34)
--- NOTE | 2018-05-02 09:56 | CP.PCM.PN ---
Subjective - Date & Time of Evaluation Date of Evaluation: 05/02/18 Time of Evaluation: 06:35 - Subjective Subjective: Awake, alert, coughing Reason for consultation and follow up:Cardiac evaluation and follow up of history of coronary artery disease, post stent, admitted for cough and shortness of breath, history of cervical cancer with metastasis, post chemotherapy and radiation. Seen and examined by me and Dr. Oliva Objective - Vital Signs/Intake and Output Vital Signs (last 24 hours): Temp Pulse Resp BP Pulse Ox 97.4 F L 101 H 20 133/92 H 95 05/02/18 08:04 05/02/18 08:04 05/02/18 08:04 05/02/18 08:04 05/02/18 08:04 Intake and Output: 05/02/18 05/02/18 06:59 18:59 Intake Total 240 Output Total 575 Balance -335 - Medications Medications: Current Medications Albuterol Sulfate (Albuterol 0.083% Inhal Viviane (2.5 Mg/3 Ml) Ud) 2.5 mg INH [id number] PRN PRN Reason: Shortness of Breath Last Admin: 05/02/18 06:55 Dose: 2.5 mg Arformoterol Tartrate (Brovana) 15 mcg IH [id number] [facility] Last Admin: 05/02/18 07:00 Dose: 15 mcg Ascorbic Acid (Vitamin C 500 Mg Tab) 1,000 mg PO DAILY [facility] Last Admin: 05/02/18 09:21 Dose: 1,000 mg Benzocaine/Menthol (Cepacol Sore Throat) 1 devante MT Q2H PRN PRN Reason: Sore Throat Last Admin: 05/02/18 09:44 Dose: 1 devante Benzonatate (Tessalon Perles) 100 mg PO TID [facility] Last Admin: 05/02/18 09:14 Dose: 100 mg Budesonide (Pulmicort Respules) 0.25 mg IH [id number] [facility] Last Admin: 05/02/18 07:00 Dose: 0.25 mg Camphor/Menthol (Bengay) 0.5 gm TOP QID PRN PRN Reason: Bladder Spasm Last Admin: 04/25/18 21:18 Dose: 0.5 gm Al Hydrox/Mg Hydrox/Simethicone 30 ml/Diphenhydramine HCl 75 mg/Lidocaine 30 ml 0 ml PO Q2H PRN PRN Reason: Mouth/Throat Pain Docusate Sodium (Colace) 100 mg PO BID [facility] Last Admin: 05/02/18 09:16 Dose: Not Given Enoxaparin Sodium (Lovenox) 30 mg SC DAILY [facility]; Protocol Last Admin: 05/02/18 09:15 Dose: 30 mg Ergocalciferol (Drisdol 50,000 Intl Units Cap) 1 cap PO FRI [facility] Last Admin: 04/26/18 09:55 Dose: 1 cap Home Med (Home Med) 2 unit PO BID [facility] Last Admin: 05/02/18 09:15 Dose: 2 unit Loperamide HCl (Imodium) 2 mg PO Q8 PRN PRN Reason: diarrhea, loose stools Last Admin: 05/02/18 08:32 Dose: 2 mg Methylprednisolone (Solu-Medrol) 20 mg IVP Q12 [facility] Last Admin: 05/02/18 09:14 Dose: 20 mg Morphine Sulfate (Morphine) 2 mg IVP Q3H PRN PRN Reason: Pain, severe (8-10) Last Admin: 05/01/18 20:30 Dose: 2 mg Ondansetron HCl (Zofran Inj) 4 mg IVP Q6H PRN PRN Reason: Nausea/Vomiting Last Admin: 04/26/18 17:50 Dose: 4 mg Oxycodone/Acetaminophen (Percocet 2.5/325 Mg Tab) 1 tab PO Q4H PRN PRN Reason: Pain, moderate (4-7) Pantoprazole Sodium (Protonix Ec Tab) 40 mg PO 0600 [facility] Last Admin: 05/02/18 05:46 Dose: 40 mg Polyethylene Glycol (Miralax) 17 gm PO BID [facility] Last Admin: 05/02/18 09:15 Dose: Not Given Pregabalin (Lyrica) 25 mg PO BID [facility] Last Admin: 05/02/18 09:14 Dose: 25 mg Promethazine HCl/Codeine (Phenergan/Codeine Oral Syrup) 5 ml PO Q6H PRN PRN Reason: Cough Last Admin: 05/02/18 05:46 Dose: 5 ml Saliva Substitute (Saliva Substitute) 0.5 ml PO QID [facility] Last Admin: 05/02/18 09:37 Dose: 0.5 ml Sertraline HCl (Zoloft) 25 mg PO QAM [facility] Last Admin: 05/02/18 09:14 Dose: 25 mg Sucralfate (Carafate Oral Susp) 1 gm PO 0630,1130,1630,2200 [facility] Last Admin: 05/02/18 05:46 Dose: 1 gm - Labs Labs: 04/29/18 08:30 04/29/18 08:30 PT 12.2 SECONDS (9.4-12.5) 04/22/18 16:38 INR 1.07 04/22/18 16:38 APTT 30.8 Seconds (25.1-36.5) 04/22/18 16:38 - Constitutional Appears: Non-toxic, No Acute Distress - Head Exam Head Exam: NORMAL INSPECTION, NORMOCEPHALIC - Eye Exam Eye Exam: Normal appearance Pupil Exam: NORMAL ACCOMODATION - ENT Exam ENT Exam: Mucous Membranes Moist - Respiratory Exam Respiratory Exam: Decreased Breath Sounds, Rhonchi, NORMAL BREATHING PATTERN - Cardiovascular Exam Cardiovascular Exam: +S1, +S2 - GI/Abdominal Exam GI & Abdominal Exam: Soft, Normal Bowel Sounds - Exam Additional comments: nephrostomy - Extremities Exam Extremities Exam: Full ROM, Normal Capillary Refill - Neurological Exam Neurological Exam: Alert, Awake, Oriented x3 - Psychiatric Exam Psychiatric exam: Normal Affect, Normal Mood - Skin Skin Exam: Dry, Normal Color, Warm Assessment and Plan - Assessment and Plan (Free Text) Assessment: A 67 year old female who came in to the ER due to cough and shortness of breath. History of coronary artery disease, post stent, admitted for cough and shortness of breath, history of cervical cancer with metastasis, post chemotherapy and radiation, chronic renal insufficiency, bilateral nephrostomy,hydronephrosis, ra diation cystitis, and psoriasis,depression, vesicovaginal fistula. Now metastasis to the lung with external compression of the bronchus.MUGA scan done LVEF 62%. Cardiac status stable. Plan: Complaining of coughing, anxious Respiratory therapist for nebulizer treatment Cardiac status stable Heart rate controlled Blood pressure controlled Hold aspirin due to hemoptysis Continue current treatment Continue current medications Will follow up Plan and treatment discussed with Dr. Oliva
--- NOTE | 2018-05-02 12:13 | PN ---
DATE: 05/02/2018 TIME: 11:37 a.m. I reviewed Ms. Kitchen's chest CT with Dr. Ford. There is an extensive infiltrative mass in the right superior mediastinum which is obstructing the superior vena cava and encasing the left upper extremity venous catheter. This has been biopsied and is metastatic cervical carcinoma. Clinically, Ms. Kitchen is experiencing neck and some facial swelling, but no significant shortness of breath. She can lay flat. Obviously, collaterals have developed from her head/neck and upper extremities to circumvent the SVC obstruction. She is currently receiving radiation and chemotherapy. If her SVC symptoms worsen, Ms. Kitchen can have a venogram and possible stent placement to improve venous drainage. However, I would not do it at the current time due to the paucity of symptoms. We were considering removing her left upper extremity port which has been in for more than 7 years, but it may be difficult (or impossible) to place additional venous access from the upper extremity given the superior mediastinal mass and SVC occlusion. She can continue to receive chemotherapy through the left arm port though it will not aspirate blood. The tip of the catheter is in good position. We will plan on performing a very limited Port-A-Cath check to document drainage from the catheter into the central venous circulation. Bruce Black MD [facility]
--- NOTE | 2018-05-02 12:22 | PN ---
DATE: 05/02/2018 REFERRING PHYSICIAN: Evaristo Salidvar MD. SUBJECTIVE: The patent is sitting up in bed. No acute distress. Reports having cough, some improvement in swallow. No headache, rhinitis, shortness of breath, chest pain, abdominal pain, nausea, vomiting, diarrhea, leg pain or leg swelling reported. OBJECTIVE: GENERAL: No acute distress. VITAL SIGNS: Blood pressure 133/92, pulse 101, temperature 97.4, oxygen saturation 95%. HEENT: Moist mucous membranes. Crowded airway. crackling sensation felt on palpation of neck NECK: Supple. No JVD. LUNGS: Fair airflow bilaterally. CARDIOVASCULAR: S1, S2, audible. ABDOMEN: Soft, nontender. No distension. No organomegaly. EXTREMITIES: No bilateral lower extremity edema. NEUROLOGIC: Awake, alert, verbal. Follows commands. MEDICATIONS: Reviewed. Albuterol 2.5 mg inhalation every 6 hours p.r.n., Brovana 15 mcg every 12 hours, vitamin C 1000 mg daily, Cepacol throat lozenges every 2 hour p.r.n., Tessalon Perles 100 mg three times a day, Pulmicort 0.25 mg inhalation every 12 hours, Bengay topically four times a day p.r.n., Colace 100 mg twice a day, Lovenox 30 mg subcu daily, ergocalciferol 50,000 units one cap daily, Imodium 2 mg every 8 hours p.r.n., Solu-Medrol 20 mg every 12 hours, morphine 2 mg every 3 hours p.r.n., Zofran 4 mg every 6 hours p.r.n., Percocet 2.5/325 mg every 4 hours p.r.n., Protonix 40 mg daily, MiraLax 17 g twice a day, Lyrica 25 mg twice a day, Phenergan with Codeine 5 mL every 6 hours p.r.n., saliva substitute 4 times a day, Zoloft 25 mg daily and Carafate 1 g four times a day. LABORATORY DATA: Reviewed. Cardiac imaging nuclear medicine scan, the MUGA scan shows calculated ejection fraction is 62%. IMPRESSION AND PLAN: Metastatic cervical cancer with metastasis to the lung having external compression to the bronchus, history of renal failure requiring bilateral nephrostomy drainage, coronary artery disease, history of coronary stents, bronchitis, obstructive sleep apnea syndrome, pulmonary hypertension, history of Watkins's esophagus. The patient refuses to use continuous positive airway pressure machine at this time. Continue inhaled bronchodilators, gastric prophylaxis, deep venous thrombosis prophylaxis, continue cough suppressant. Dr. Reis has had multiple conversations with family and patient where they have expressed their concerns about too much radiation exposure. Discussed with patient in dept current condition and patient agreed to CT scan of neck and chest to evaluate for subcutaneous emphysema and SVC syndrome. Continue followup with Gastroenterology, currently undergoing radiation therapy. Continue to monitor the patient for complications from radiation. The patient will need full pulmonary function test as outpatient. This patient was seen and examined with Dr. Reis. Discussed assessment and plan as described above. Thank you for this consult. We will follow with you. Hira Adame APN Debby Reis, MDDD: 05/02/2018 11:17:06 [facility]
--- NOTE | 2018-05-02 12:29 | CP.PCM.PN ---
<Nadir Douglas - Last Filed: 05/02/18 12:25> Subjective - Date & Time of Evaluation Date of Evaluation: 05/02/18 Time of Evaluation: 10:00 - Subjective Subjective: ID Progress Note Patient seen and examined. Patient states she is improved. No fevers overnight. Objective - Vital Signs/Intake and Output Vital Signs (last 24 hours): Temp Pulse Resp BP Pulse Ox 97.4 F L 101 H 20 133/92 H 95 05/02/18 08:04 05/02/18 08:04 05/02/18 08:04 05/02/18 08:04 05/02/18 08:04 Intake and Output: 05/02/18 05/02/18 06:59 18:59 Intake Total 240 Output Total 575 Balance -335 - Medications Medications: Current Medications Albuterol Sulfate (Albuterol 0.083% Inhal Viviane (2.5 Mg/3 Ml) Ud) 2.5 mg INH [id number] PRN PRN Reason: Shortness of Breath Last Admin: 05/02/18 06:55 Dose: 2.5 mg Arformoterol Tartrate (Brovana) 15 mcg IH [id number] [facility] Last Admin: 05/02/18 07:00 Dose: 15 mcg Ascorbic Acid (Vitamin C 500 Mg Tab) 1,000 mg PO DAILY [facility] Last Admin: 05/02/18 09:21 Dose: 1,000 mg Benzocaine/Menthol (Cepacol Sore Throat) 1 devante MT Q2H PRN PRN Reason: Sore Throat Last Admin: 05/02/18 09:44 Dose: 1 devante Benzonatate (Tessalon Perles) 100 mg PO TID [facility] Last Admin: 05/02/18 09:14 Dose: 100 mg Budesonide (Pulmicort Respules) 0.25 mg IH [id number] [facility] Last Admin: 05/02/18 07:00 Dose: 0.25 mg Camphor/Menthol (Bengay) 0.5 gm TOP QID PRN PRN Reason: Bladder Spasm Last Admin: 04/25/18 21:18 Dose: 0.5 gm Al Hydrox/Mg Hydrox/Simethicone 30 ml/Diphenhydramine HCl 75 mg/Lidocaine 30 ml 0 ml PO Q2H PRN PRN Reason: Mouth/Throat Pain Docusate Sodium (Colace) 100 mg PO BID [facility] Last Admin: 05/02/18 09:16 Dose: Not Given Enoxaparin Sodium (Lovenox) 30 mg SC DAILY [facility]; Protocol Last Admin: 05/02/18 09:15 Dose: 30 mg Ergocalciferol (Drisdol 50,000 Intl Units Cap) 1 cap PO FRI [facility] Last Admin: 04/26/18 09:55 Dose: 1 cap Home Med (Home Med) 2 unit PO BID [facility] Last Admin: 05/02/18 09:15 Dose: 2 unit Loperamide HCl (Imodium) 2 mg PO Q8 PRN PRN Reason: diarrhea, loose stools Last Admin: 05/02/18 08:32 Dose: 2 mg Methylprednisolone (Solu-Medrol) 20 mg IVP Q12 [facility] Last Admin: 05/02/18 09:14 Dose: 20 mg Morphine Sulfate (Morphine) 2 mg IVP Q3H PRN PRN Reason: Pain, severe (8-10) Last Admin: 05/01/18 20:30 Dose: 2 mg Ondansetron HCl (Zofran Inj) 4 mg IVP Q6H PRN PRN Reason: Nausea/Vomiting Last Admin: 04/26/18 17:50 Dose: 4 mg Oxycodone/Acetaminophen (Percocet 2.5/325 Mg Tab) 1 tab PO Q4H PRN PRN Reason: Pain, moderate (4-7) Pantoprazole Sodium (Protonix Ec Tab) 40 mg PO 0600 [facility] Last Admin: 05/02/18 05:46 Dose: 40 mg Polyethylene Glycol (Miralax) 17 gm PO BID [facility] Last Admin: 05/02/18 09:15 Dose: Not Given Pregabalin (Lyrica) 25 mg PO BID [facility] Last Admin: 05/02/18 09:14 Dose: 25 mg Promethazine HCl/Codeine (Phenergan/Codeine Oral Syrup) 5 ml PO Q6H PRN PRN Reason: Cough Last Admin: 05/02/18 11:27 Dose: 5 ml Saliva Substitute (Saliva Substitute) 0.5 ml PO QID [facility] Last Admin: 05/02/18 09:37 Dose: 0.5 ml Sertraline HCl (Zoloft) 25 mg PO QAM [facility] Last Admin: 05/02/18 09:14 Dose: 25 mg Sucralfate (Carafate Oral Susp) 1 gm PO 0630,1130,1630,2200 [facility] Last Admin: 05/02/18 11:27 Dose: 1 gm - Labs Labs: 04/29/18 08:30 04/29/18 08:30 PT 12.2 SECONDS (9.4-12.5) 04/22/18 16:38 INR 1.07 04/22/18 16:38 APTT 30.8 Seconds (25.1-36.5) 04/22/18 16:38 - Constitutional Appears: Non-toxic, No Acute Distress - ENT Exam ENT Exam: Mucous Membranes Moist - Respiratory Exam Respiratory Exam: Decreased Breath Sounds, NORMAL BREATHING PATTERN. absent: Rales, Rhonchi, Wheezes - Cardiovascular Exam Cardiovascular Exam: RRR, +S1 - GI/Abdominal Exam GI & Abdominal Exam: Soft, Normal Bowel Sounds. absent: Tenderness - Extremities Exam Extremities Exam: Normal Inspection. absent: Pedal Edema - Neurological Exam Neurological Exam: Alert, Awake, Oriented x3 - Psychiatric Exam Psychiatric exam: Normal Affect, Normal Mood - Skin Skin Exam: Dry, Intact, Warm Assessment and Plan - Assessment and Plan (Free Text) Plan: probable complicated UTI with E. coli and E. faecalis, in this patient with indwelling right sided nephrostomy tube presenting with hematuria - repeat urine cx negative hx of Urinary tract infection with Klebsiella oxytoca hx of pseudomonas, Klebsiella and Enterococcus faecalis UTI enterococcus and pseudomonas UTI in the past hx of cervical cancer S/P chemotherapy and radiation therapy with history or radiation cystitis hx of transient ischemic attack hx of GERD coronary artery disease sleep apnea hx of psoriasis hx of diverticulitis hx of depression chronic renal failure S/P nephrostomy tube placement Plan Repeat cultures negative S/P Zosyn x 4 days Will monitor off of antibiotics Continue radiation treatments as per rad onc Follow up with Dr. Ford outpatient Stella, PGY-3 <Abelino Man S - Last Filed: 05/02/18 15:00> Objective - Vital Signs/Intake and Output Vital Signs (last 24 hours): Temp Pulse Resp BP Pulse Ox 97.4 F L 101 H 20 133/92 H 95 05/02/18 08:04 05/02/18 08:04 05/02/18 08:04 05/02/18 08:04 05/02/18 08:04 Intake and Output: 05/02/18 05/02/18 06:59 18:59 Intake Total 240 Output Total 575 Balance -335 - Medications Medications: Current Medications Albuterol Sulfate (Albuterol 0.083% Inhal Viviane (2.5 Mg/3 Ml) Ud) 2.5 mg INH [id number] PRN PRN Reason: Shortness of Breath Last Admin: 05/02/18 06:55 Dose: 2.5 mg Arformoterol Tartrate (Brovana) 15 mcg IH [id number] [facility] Last Admin: 05/02/18 07:00 Dose: 15 mcg Ascorbic Acid (Vitamin C 500 Mg Tab) 1,000 mg PO DAILY [facility] Last Admin: 05/02/18 09:21 Dose: 1,000 mg Benzocaine/Menthol (Cepacol Sore Throat) 1 devante MT Q2H PRN PRN Reason: Sore Throat Last Admin: 05/02/18 09:44 Dose: 1 devante Benzonatate (Tessalon Perles) 100 mg PO TID [facility] Last Admin: 05/02/18 13:03 Dose: 100 mg Budesonide (Pulmicort Respules) 0.25 mg IH [id number] [facility] Last Admin: 05/02/18 07:00 Dose: 0.25 mg Camphor/Menthol (Bengay) 0.5 gm TOP QID PRN PRN Reason: Bladder Spasm Last Admin: 04/25/18 21:18 Dose: 0.5 gm Al Hydrox/Mg Hydrox/Simethicone 30 ml/Diphenhydramine HCl 75 mg/Lidocaine 30 ml 0 ml PO Q2H PRN PRN Reason: Mouth/Throat Pain Last Admin: 05/02/18 13:46 Dose: 15 shae Docusate Sodium (Colace) 100 mg PO BID [facility] Last Admin: 05/02/18 09:16 Dose: Not Given Enoxaparin Sodium (Lovenox) 30 mg SC DAILY [facility]; Protocol Last Admin: 05/02/18 09:15 Dose: 30 mg Ergocalciferol (Drisdol 50,000 Intl Units Cap) 1 cap PO FRI [facility] Last Admin: 04/26/18 09:55 Dose: 1 cap Home Med (Home Med) 2 unit PO BID [facility] Last Admin: 05/02/18 09:15 Dose: 2 unit Loperamide HCl (Imodium) 2 mg PO Q8 PRN PRN Reason: diarrhea, loose stools Last Admin: 05/02/18 08:32 Dose: 2 mg Methylprednisolone (Solu-Medrol) 20 mg IVP Q12 [facility] Last Admin: 05/02/18 09:14 Dose: 20 mg Morphine Sulfate (Morphine) 2 mg IVP Q3H PRN PRN Reason: Pain, severe (8-10) Last Admin: 05/01/18 20:30 Dose: 2 mg Ondansetron HCl (Zofran Inj) 4 mg IVP Q6H PRN PRN Reason: Nausea/Vomiting Last Admin: 04/26/18 17:50 Dose: 4 mg Oxycodone/Acetaminophen (Percocet 2.5/325 Mg Tab) 1 tab PO Q4H PRN PRN Reason: Pain, moderate (4-7) Pantoprazole Sodium (Protonix Ec Tab) 40 mg PO 0600 [facility] Last Admin: 05/02/18 05:46 Dose: 40 mg Polyethylene Glycol (Miralax) 17 gm PO BID [facility] Last Admin: 05/02/18 09:15 Dose: Not Given Pregabalin (Lyrica) 25 mg PO BID [facility] Last Admin: 05/02/18 09:14 Dose: 25 mg Promethazine HCl/Codeine (Phenergan/Codeine Oral Syrup) 5 ml PO Q6H PRN PRN Reason: Cough Last Admin: 05/02/18 11:27 Dose: 5 ml Saliva Substitute (Saliva Substitute) 0.5 ml PO QID [facility] Last Admin: 05/02/18 13:03 Dose: 0.5 ml Sertraline HCl (Zoloft) 25 mg PO QAM [facility] Last Admin: 05/02/18 09:14 Dose: 25 mg Sucralfate (Carafate Oral Susp) 1 gm PO 0630,1130,1630,2200 [facility] Last Admin: 05/02/18 11:27 Dose: 1 gm - Labs Labs: 04/29/18 08:30 04/29/18 08:30 PT 12.2 SECONDS (9.4-12.5) 04/22/18 16:38 INR 1.07 04/22/18 16:38 APTT 30.8 Seconds (25.1-36.5) 04/22/18 16:38 Assessment and Plan - Assessment and Plan (Free Text) Plan: Infectious diseases Attending Physician Attestation Patient seen and examined, discussed with medical record assistant. I have reviewed the patient's history of present illness, past medical, social, personal and family histories, pertinent physical exam findings, course so far in this hospital admission, pertinent laboratory and imaging results. I agree with the above findings, assessment and plan. In addition, continue to monitor off antibiotics, patient is S/P treatment for complicated UTI with E. faecalis and E. coli, with nephrostomy tube.
[2018-05-02] MEDS: Aluminum Hydroxide/Magnesium 30 ML, DiphenhydrAMINE 75 MG, Lidocaine 2% Viscous 30 ML PO PRN (13:46)
[2018-05-02] MEDS ORDERED: Promethazine/Cod 6.25mg-10mg/5ml Syr UD PO ONE (14:07)
--- NOTE | 2018-05-02 14:23 | CP.PCM.PN ---
Subjective - Date & Time of Evaluation Date of Evaluation: 05/02/18 Time of Evaluation: 13:54 - Subjective Subjective: PGY-2 heme/onc progress note No acute events overnight. Seen with sister at bedside. Patient eating lunch - scheduled for radiation this afternoon. Still complained of throat pain upon swallowing. Still complained of cough - stated she's had a cough for 1 year - non-productive. Complained of shortness of breath - however speaking to me comfortably without NC. Objective - Vital Signs/Intake and Output Vital Signs (last 24 hours): Temp Pulse Resp BP Pulse Ox 97.4 F L 101 H 20 133/92 H 95 05/02/18 08:04 05/02/18 08:04 05/02/18 08:04 05/02/18 08:04 05/02/18 08:04 Intake and Output: 05/02/18 05/02/18 06:59 18:59 Intake Total 240 Output Total 575 Balance -335 - Medications Medications: Current Medications Albuterol Sulfate (Albuterol 0.083% Inhal Viviane (2.5 Mg/3 Ml) Ud) 2.5 mg INH [id number] PRN PRN Reason: Shortness of Breath Last Admin: 05/02/18 06:55 Dose: 2.5 mg Arformoterol Tartrate (Brovana) 15 mcg IH [id number] [facility] Last Admin: 05/02/18 07:00 Dose: 15 mcg Ascorbic Acid (Vitamin C 500 Mg Tab) 1,000 mg PO DAILY [facility] Last Admin: 05/02/18 09:21 Dose: 1,000 mg Benzocaine/Menthol (Cepacol Sore Throat) 1 devante MT Q2H PRN PRN Reason: Sore Throat Last Admin: 05/02/18 09:44 Dose: 1 devante Benzonatate (Tessalon Perles) 100 mg PO TID [facility] Last Admin: 05/02/18 13:03 Dose: 100 mg Budesonide (Pulmicort Respules) 0.25 mg IH [id number] [facility] Last Admin: 05/02/18 07:00 Dose: 0.25 mg Camphor/Menthol (Bengay) 0.5 gm TOP QID PRN PRN Reason: Bladder Spasm Last Admin: 04/25/18 21:18 Dose: 0.5 gm Al Hydrox/Mg Hydrox/Simethicone 30 ml/Diphenhydramine HCl 75 mg/Lidocaine 30 ml 0 ml PO Q2H PRN PRN Reason: Mouth/Throat Pain Last Admin: 05/02/18 13:46 Dose: 15 shae Docusate Sodium (Colace) 100 mg PO BID [facility] Last Admin: 05/02/18 09:16 Dose: Not Given Enoxaparin Sodium (Lovenox) 30 mg SC DAILY [facility]; Protocol Last Admin: 05/02/18 09:15 Dose: 30 mg Ergocalciferol (Drisdol 50,000 Intl Units Cap) 1 cap PO FRI [facility] Last Admin: 04/26/18 09:55 Dose: 1 cap Home Med (Home Med) 2 unit PO BID [facility] Last Admin: 05/02/18 09:15 Dose: 2 unit Loperamide HCl (Imodium) 2 mg PO Q8 PRN PRN Reason: diarrhea, loose stools Last Admin: 05/02/18 08:32 Dose: 2 mg Methylprednisolone (Solu-Medrol) 20 mg IVP Q12 [facility] Last Admin: 05/02/18 09:14 Dose: 20 mg Morphine Sulfate (Morphine) 2 mg IVP Q3H PRN PRN Reason: Pain, severe (8-10) Last Admin: 05/01/18 20:30 Dose: 2 mg Ondansetron HCl (Zofran Inj) 4 mg IVP Q6H PRN PRN Reason: Nausea/Vomiting Last Admin: 04/26/18 17:50 Dose: 4 mg Oxycodone/Acetaminophen (Percocet 2.5/325 Mg Tab) 1 tab PO Q4H PRN PRN Reason: Pain, moderate (4-7) Pantoprazole Sodium (Protonix Ec Tab) 40 mg PO 0600 [facility] Last Admin: 05/02/18 05:46 Dose: 40 mg Polyethylene Glycol (Miralax) 17 gm PO BID [facility] Last Admin: 05/02/18 09:15 Dose: Not Given Pregabalin (Lyrica) 25 mg PO BID [facility] Last Admin: 05/02/18 09:14 Dose: 25 mg Promethazine HCl/Codeine (Phenergan/Codeine Oral Syrup) 5 ml PO Q6H PRN PRN Reason: Cough Last Admin: 05/02/18 11:27 Dose: 5 ml Saliva Substitute (Saliva Substitute) 0.5 ml PO QID [facility] Last Admin: 05/02/18 13:03 Dose: 0.5 ml Sertraline HCl (Zoloft) 25 mg PO QAM [facility] Last Admin: 05/02/18 09:14 Dose: 25 mg Sucralfate (Carafate Oral Susp) 1 gm PO 0630,1130,1630,2200 [facility] Last Admin: 05/02/18 11:27 Dose: 1 gm - Labs Labs: 04/29/18 08:30 04/29/18 08:30 PT 12.2 SECONDS (9.4-12.5) 04/22/18 16:38 INR 1.07 04/22/18 16:38 APTT 30.8 Seconds (25.1-36.5) 04/22/18 16:38 - Additional Findings Additional findings: - Constitutional Appears: Well, Non-toxic, No Acute Distress - Head Exam Head Exam: ATRAUMATIC, NORMAL INSPECTION - Eye Exam Eye Exam: EOMI, Normal appearance, PERRL. absent: Scleral icterus - ENT Exam ENT Exam: Mucous Membranes Moist - Respiratory Exam Respiratory Exam: Clear to Auscultation Bilateral, NORMAL BREATHING PATTERN. absent: Wheezes - Cardiovascular Exam Cardiovascular Exam: REGULAR RHYTHM, +S1, +S2, external jugular vein distended absent: JVD - GI/Abdominal Exam GI & Abdominal Exam: Normal Bowel Sounds, Soft. absent: Tenderness - Extremities Exam Extremities exam: Positive for: normal inspection - Neurological Exam Neurological exam: Alert, Oriented x3 - Psychiatric Exam Psychiatric exam: Normal Affect, Normal Mood - Skin Skin Exam: Intact, Normal Color, Warm Assessment and Plan - Assessment and Plan (Free Text) Plan: Ms Kitchen is a 67 year old female with history of stage III cervical cancer status post chemoradiation, CAD status post stent, CRI, h/o nephrostomy tubes, radiation cystitis, psoriasis, and depression who was admitted for dyspnea on exertion and cough: stage IV cervical carcinoma cancer w/ mets to lung -patient began radiation 04/25/[address] Aguiar - expected length to be approx 2 weeks -after radiation likely chemo -percocet 1 tab po q6h prn -pregabalin 25mg po bid -continue radiation and ten assess for systemic treatments with Avastin based complications and anthracycline Odynophagia -ENT Dr Topete consulted - however patient did not want to see Dr Mcmahan (who works with Dr Topete) -GI consulted, Dr Sumner -magic mouthwash 5ml 20 minutes ACHS -may need evaluation with barium swallow, upper endoscopy if symptoms continue to worsen Possible SVC Syndrome -external jugular distended -we will discuss with Dr Reis about possibility of SVC syndrom -increasing venous pressure from tumor burden in mediastium could be causing early SVC syndrome Cough/CASTANON -negative for flu swab, normal wbc, afebrile -empiric coverage with augmentin po q12 (started 04/25/18) and levaquin 250mg po qd (started 04/25/18) * augmentin and levaquin both discontinued, zosyn started 04/26/18 also now discontinued; currently on no abx -tessalon perles 100mg po tid, phenergan 5ml po q6h prn -brovana 15mcg ih q12h, budesonide 0.25mg ih q12h Complicated UTI with E. coli and E. faecalis with right sided nephrostomy tube, Resolved -ua + for leukocyte esterase and nitrates -empiric coverage with augmentin po q12 (started 04/25/18) and levaquin 250mg po qd (started 04/25/18), zosyn started 04/26/18 also now discontinued; currently on no abx -complete total 5-7 day course of Zosyn for E. coli and E. 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
[2018-05-02] MEDS: Morphine 2 mg/ml ISec IVP PRN ×2 (19:11→22:57)
[2018-05-03] MEDS: Promethazine/Cod 6.25mg-10mg/5ml Syr UD PO PRN ×3 (05:09→21:55)
[2018-05-03] MEDS: Sucralfate 1 gm/10 ml Oral Susp UD PO SCH ×4 (06:06→21:41)
[2018-05-03] MEDS: Pantoprazole 40 mg EC Tab PO SCH (06:07)
--- NOTE | 2018-05-03 07:15 | CP.PCM.PN ---
Subjective - Date & Time of Evaluation Date of Evaluation: 05/03/18 Time of Evaluation: 06:10 - Subjective Subjective: Awake, alert, no distress Reason for consultation and follow up:Cardiac evaluation and follow up of history of coronary artery disease, post stent, admitted for cough and shortness of breath, history of cervical cancer with metastasis, post chemotherapy and radiation. Seen and examined by me and Dr. Oliva Objective - Vital Signs/Intake and Output Vital Signs (last 24 hours): Temp Pulse Resp BP Pulse Ox 98.0 F 83 20 159/90 H 95 05/03/18 06:00 05/03/18 06:00 05/03/18 06:00 05/03/18 06:00 05/03/18 06:00 Intake and Output: 05/03/18 05/03/18 06:59 18:59 Output Total 600 Balance -600 - Medications Medications: Current Medications Albuterol Sulfate (Albuterol 0.083% Inhal Viviane (2.5 Mg/3 Ml) Ud) 2.5 mg INH [id number] PRN PRN Reason: Shortness of Breath Last Admin: 05/02/18 16:50 Dose: 2.5 mg Arformoterol Tartrate (Brovana) 15 mcg IH [id number] [facility] Last Admin: 05/02/18 07:00 Dose: 15 mcg Ascorbic Acid (Vitamin C 500 Mg Tab) 1,000 mg PO DAILY [facility] Last Admin: 05/02/18 09:21 Dose: 1,000 mg Benzocaine/Menthol (Cepacol Sore Throat) 1 devante MT Q2H PRN PRN Reason: Sore Throat Last Admin: 05/02/18 18:34 Dose: 1 devante Benzonatate (Tessalon Perles) 100 mg PO TID [facility] Last Admin: 05/02/18 18:18 Dose: 100 mg Budesonide (Pulmicort Respules) 0.25 mg IH [id number] [facility] Last Admin: 05/02/18 07:00 Dose: 0.25 mg Camphor/Menthol (Bengay) 0.5 gm TOP QID PRN PRN Reason: Bladder Spasm Last Admin: 04/25/18 21:18 Dose: 0.5 gm Al Hydrox/Mg Hydrox/Simethicone 30 ml/Diphenhydramine HCl 75 mg/Lidocaine 30 ml 0 ml PO Q2H PRN PRN Reason: Mouth/Throat Pain Last Admin: 05/02/18 13:46 Dose: 15 shae Docusate Sodium (Colace) 100 mg PO BID [facility] Last Admin: 05/02/18 18:18 Dose: Not Given Enoxaparin Sodium (Lovenox) 30 mg SC DAILY [facility]; Protocol Last Admin: 05/02/18 09:15 Dose: 30 mg Ergocalciferol (Drisdol 50,000 Intl Units Cap) 1 cap PO FRI [facility] Last Admin: 04/26/18 09:55 Dose: 1 cap Home Med (Home Med) 2 unit PO BID [facility] Last Admin: 05/02/18 18:18 Dose: 2 unit Loperamide HCl (Imodium) 2 mg PO Q8 PRN PRN Reason: diarrhea, loose stools Last Admin: 05/02/18 18:18 Dose: 2 mg Methylprednisolone (Solu-Medrol) 20 mg IVP Q12 [facility] Last Admin: 05/02/18 22:43 Dose: 20 mg Morphine Sulfate (Morphine) 2 mg IVP Q3H PRN PRN Reason: Pain, severe (8-10) Last Admin: 05/02/18 22:57 Dose: 2 mg Ondansetron HCl (Zofran Inj) 4 mg IVP Q6H PRN PRN Reason: Nausea/Vomiting Last Admin: 04/26/18 17:50 Dose: 4 mg Oxycodone/Acetaminophen (Percocet 2.5/325 Mg Tab) 1 tab PO Q4H PRN PRN Reason: Pain, moderate (4-7) Pantoprazole Sodium (Protonix Ec Tab) 40 mg PO 0600 [facility] Last Admin: 05/03/18 06:07 Dose: 40 mg Polyethylene Glycol (Miralax) 17 gm PO BID [facility] Last Admin: 05/02/18 18:18 Dose: Not Given Pregabalin (Lyrica) 25 mg PO BID [facility] Last Admin: 05/02/18 18:18 Dose: 25 mg Promethazine HCl/Codeine (Phenergan/Codeine Oral Syrup) 5 ml PO Q6H PRN PRN Reason: Cough Last Admin: 05/03/18 05:09 Dose: 5 ml Saliva Substitute (Saliva Substitute) 0.5 ml PO QID [facility] Last Admin: 05/02/18 22:42 Dose: 0.5 ml Sertraline HCl (Zoloft) 25 mg PO QAM [facility] Last Admin: 05/02/18 09:14 Dose: 25 mg Sucralfate (Carafate Oral Susp) 1 gm PO 0630,1130,1630,2200 [facility] Last Admin: 05/03/18 06:06 Dose: 1 gm - Labs Labs: 04/29/18 08:30 04/29/18 08:30 PT 12.2 SECONDS (9.4-12.5) 04/22/18 16:38 INR 1.07 04/22/18 16:38 APTT 30.8 Seconds (25.1-36.5) 04/22/18 16:38 - Constitutional Appears: Non-toxic, No Acute Distress - Head Exam Head Exam: NORMAL INSPECTION, NORMOCEPHALIC - Eye Exam Eye Exam: Normal appearance Pupil Exam: NORMAL ACCOMODATION - ENT Exam ENT Exam: Mucous Membranes Moist - Respiratory Exam Respiratory Exam: Decreased Breath Sounds, NORMAL BREATHING PATTERN - Cardiovascular Exam Cardiovascular Exam: +S1, +S2 - GI/Abdominal Exam GI & Abdominal Exam: Soft, Normal Bowel Sounds - Exam Additional comments: nephrostomy tube bilateral - Extremities Exam Extremities Exam: Full ROM, Normal Capillary Refill - Neurological Exam Neurological Exam: Alert, Awake, Oriented x3 - Psychiatric Exam Psychiatric exam: Anxious - Skin Skin Exam: Dry, Normal Color, Warm Assessment and Plan - Assessment and Plan (Free Text) Assessment: A 67 year old female who came in to the ER due to cough and shortness of breath. History of coronary artery disease, post stent, admitted for cough and shortness of breath, history of cervical cancer with metastasis, post chemotherapy and radiation, chronic renal insufficiency, bilateral nephrostomy,hydronephrosis, radiation cystitis, and psoriasis,depression, vesicovaginal fistula. Now metastasis to the lung with external compression of the bronchus.MUGA scan done LVEF 62%. Cardiac status stable. Urinary tract infection, E.Coli in urine, was on IV antibiotics per ID. Radiation therapy in progress until the . Seen by Dr. Black for possible SVC syndrome. Plan: Cardiac status stable Heart rate controlled Blood pressure controlled Hold aspirin due to hemoptysis Radiation therapy in progress Seen by Dr. Black for possible SVC syndrome Continue current treatment Continue current medications Will follow up Plan and treatment discussed with Dr. Oliva
[2018-05-03 07:24] LABS: BASO # 0.01 K/mm3 (0.0-2.0); BASO % 0.3 % (0.0-3.0); GRAN # 3.15 (1.4-6.5); GRAN % 88.2 % (50.0-68.0); HEMOGLOBIN 9.1 g/dL (12.0-16.0); LYMPH # 0.3 (1.2-3.4); MEAN CELL VOLUME 92.7 fl (80.0-105.0); MEAN CORPUSCULAR HGB CONC 31.3 g/dl (31.0-37.0); MEAN PLATELET VOLUME 9.6 fl (7.0-11.0); MONO # 0.2 (0.1-0.6); MONO % 4.5 % (1.0-6.0); RBC 3.14 10^6/uL (3.5-6.1); RED CELL DISTRIBUTION WIDTH 14.9 % (11.5-14.5); WHITE BLOOD COUNT 3.6 10^3/uL (4.5-11.0)
[2018-05-03] MEDS: Arformoterol 15 mcg/2 ml Inh Sol IH SCH ×2 (07:27→19:09)
[2018-05-03] MEDS: Budesonide 0.25 mg/2 ml Inhal Susp UD IH SCH ×2 (07:27→19:10)
[2018-05-03 07:53] LABS: ALB/GLOB RATIO 1.1 (1.1-1.8); ALBUMIN 3.8 g/dL (3.0-4.8); CALCIUM 9.7 mg/dL (8.4-10.5)
--- NOTE | 2018-05-03 08:00 | CP.PCM.PN ---
Subjective - Date & Time of Evaluation Date of Evaluation: 05/03/18 Time of Evaluation: 07:55 - Subjective Subjective: PGY-2 heme/onc progress note for Dr Ford No acute events noted overnight. Still complains of odynaphagia however tolerating diet. Denied cp, sob, f/c, n/v. Objective - Vital Signs/Intake and Output Vital Signs (last 24 hours): Temp Pulse Resp BP Pulse Ox 98.0 F 83 20 159/90 H 95 05/03/18 06:00 05/03/18 06:00 05/03/18 06:00 05/03/18 06:00 05/03/18 06:00 Intake and Output: 05/03/18 05/03/18 06:59 18:59 Output Total 600 Balance -600 - Medications Medications: Current Medications Albuterol Sulfate (Albuterol 0.083% Inhal Viviane (2.5 Mg/3 Ml) Ud) 2.5 mg INH [id number] PRN PRN Reason: Shortness of Breath Last Admin: 05/02/18 16:50 Dose: 2.5 mg Arformoterol Tartrate (Brovana) 15 mcg IH [id number] [facility] Last Admin: 05/03/18 07:27 Dose: 15 mcg Ascorbic Acid (Vitamin C 500 Mg Tab) 1,000 mg PO DAILY [facility] Last Admin: 05/02/18 09:21 Dose: 1,000 mg Benzocaine/Menthol (Cepacol Sore Throat) 1 devante MT Q2H PRN PRN Reason: Sore Throat Last Admin: 05/02/18 18:34 Dose: 1 devante Benzonatate (Tessalon Perles) 100 mg PO TID [facility] Last Admin: 05/02/18 18:18 Dose: 100 mg Budesonide (Pulmicort Respules) 0.25 mg IH [id number] [facility] Last Admin: 05/03/18 07:27 Dose: 0.25 mg Camphor/Menthol (Bengay) 0.5 gm TOP QID PRN PRN Reason: Bladder Spasm Last Admin: 04/25/18 21:18 Dose: 0.5 gm Al Hydrox/Mg Hydrox/Simethicone 30 ml/Diphenhydramine HCl 75 mg/Lidocaine 30 ml 0 ml PO Q2H PRN PRN Reason: Mouth/Throat Pain Last Admin: 05/02/18 13:46 Dose: 15 shae Docusate Sodium (Colace) 100 mg PO BID [facility] Last Admin: 05/02/18 18:18 Dose: Not Given Enoxaparin Sodium (Lovenox) 30 mg SC DAILY [facility]; Protocol Last Admin: 05/02/18 09:15 Dose: 30 mg Ergocalciferol (Drisdol 50,000 Intl Units Cap) 1 cap PO FRI [facility] Last Admin: 04/26/18 09:55 Dose: 1 cap Home Med (Home Med) 2 unit PO BID [facility] Last Admin: 05/02/18 18:18 Dose: 2 unit Loperamide HCl (Imodium) 2 mg PO Q8 PRN PRN Reason: diarrhea, loose stools Last Admin: 05/02/18 18:18 Dose: 2 mg Methylprednisolone (Solu-Medrol) 20 mg IVP Q12 [facility] Last Admin: 05/02/18 22:43 Dose: 20 mg Morphine Sulfate (Morphine) 2 mg IVP Q3H PRN PRN Reason: Pain, severe (8-10) Last Admin: 05/02/18 22:57 Dose: 2 mg Ondansetron HCl (Zofran Inj) 4 mg IVP Q6H PRN PRN Reason: Nausea/Vomiting Last Admin: 04/26/18 17:50 Dose: 4 mg Oxycodone/Acetaminophen (Percocet 2.5/325 Mg Tab) 1 tab PO Q4H PRN PRN Reason: Pain, moderate (4-7) Pantoprazole Sodium (Protonix Ec Tab) 40 mg PO 0600 [facility] Last Admin: 05/03/18 06:07 Dose: 40 mg Polyethylene Glycol (Miralax) 17 gm PO BID [facility] Last Admin: 05/02/18 18:18 Dose: Not Given Pregabalin (Lyrica) 25 mg PO BID [facility] Last Admin: 05/02/18 18:18 Dose: 25 mg Promethazine HCl/Codeine (Phenergan/Codeine Oral Syrup) 5 ml PO Q6H PRN PRN Reason: Cough Last Admin: 05/03/18 05:09 Dose: 5 ml Saliva Substitute (Saliva Substitute) 0.5 ml PO QID [facility] Last Admin: 05/02/18 22:42 Dose: 0.5 ml Sertraline HCl (Zoloft) 25 mg PO QAM [facility] Last Admin: 05/02/18 09:14 Dose: 25 mg Sucralfate (Carafate Oral Susp) 1 gm PO 0630,1130,1630,2200 [facility] Last Admin: 05/03/18 06:06 Dose: 1 gm - Labs Labs: 05/03/18 07:00 05/03/18 07:00 PT 12.2 SECONDS (9.4-12.5) 04/22/18 16:38 INR 1.07 04/22/18 16:38 APTT 30.8 Seconds (25.1-36.5) 04/22/18 16:38 - Additional Findings Additional findings: - Constitutional Appears: Well, Non-toxic, No Acute Distress - Head Exam Head Exam: ATRAUMATIC, NORMAL INSPECTION - Eye Exam Eye Exam: EOMI, Normal appearance, PERRL. absent: Scleral icterus - ENT Exam ENT Exam: Mucous Membranes Moist - Respiratory Exam Respiratory Exam: Clear to Auscultation Bilateral, NORMAL BREATHING PATTERN. absent: Wheezes - Cardiovascular Exam Cardiovascular Exam: REGULAR RHYTHM, +S1, +S2, external jugular vein distended absent: JVD - GI/Abdominal Exam GI & Abdominal Exam: Normal Bowel Sounds, Soft. absent: Tenderness - Extremities Exam Extremities exam: Positive for: normal inspection - Neurological Exam Neurological exam: Alert, Oriented x3 - Psychiatric Exam Psychiatric exam: Normal Affect, Normal Mood - Skin Skin Exam: Intact, Normal Color, Warm Assessment and Plan - Assessment and Plan (Free Text) Plan: Ms Kitchen is a 67 year old female with history of stage III cervical cancer status post chemoradiation, CAD status post stent, CRI, h/o nephrostomy tubes, radiation cystitis, psoriasis, and depression who was admitted for dyspnea on exertion and cough: stage IV cervical carcinoma cancer w/ mets to lung -patient began radiation 04/25/[address] Aguiar - expected length to be approx 2 weeks - last radiation 05/08/18 -after radiation likely chemo -percocet 1 tab po q6h prn -pregabalin 25mg po bid -continue radiation and ten assess for systemic treatments with Avastin based complications and anthracycline Possible SVC Syndrome -external jugular distended -we will discuss with Dr Reis about possibility of SVC syndrom -increasing venous pressure from tumor burden in mediastium could be causing early SVC syndrome -Dr Bruce Black evaluated patient and stated there is concern about tumor encapsulating SVC - Dr Black will order a dye study to further evaluate this issue. -f/u official report of CT neck and chest w/o contrast Odynophagia -ENT Dr Topete consulted - however patient did not want to see Dr Mcmahan (who works with Dr Topete) -GI consulted, Dr Sumner -magic mouthwash 5ml 20 minutes ACHS -may need evaluation with barium swallow, upper endoscopy if symptoms continue to worsen Cough/CASTANON -negative for flu swab, normal wbc, afebrile -empiric coverage with augmentin po q12 (started 04/25/18) and levaquin 250mg po qd (started 04/25/18) * augmentin and levaquin both discontinued, zosyn started 04/26/18 also now discontinued; currently on no abx -tessalon perles 100mg po tid, phenergan 5ml po q6h prn -brovana 15mcg ih q12h, budesonide 0.25mg ih q12h, solumedrol 20mg ivp q12h Complicated UTI with E. coli and E. faecalis with right sided nephrostomy tube, Resolved -ua + for leukocyte esterase and nitrates -empiric coverage with augmentin po q12 (started 04/25/18) and levaquin 250mg po qd (started 04/25/18), zosyn started 04/26/18 also now discontinued; currently on no abx -complete total 5-7 day course of Zosyn for E. coli and E. 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
[2018-05-03] MEDS: TRANEXAMIC ACID 650 MG PO SCH ×2 (09:41→17:21)
[2018-05-03] MEDS: POLYETHYLENE GLYCOL 3350 17 GM/Dose PACKET PO SCH ×2 (09:42→17:21)
[2018-05-03] MEDS: MethylPREDNISolone 40 mg Vial IVP SCH ×2 (09:42→21:48)
[2018-05-03] MEDS: Enoxaparin 30 mg Syringe SC SCH (09:42)
[2018-05-03] MEDS: Ergocalciferol 50,000 Intl Units Cap PO SCH (09:43)
[2018-05-03] MEDS: Saliva Substitute 44.3 ML PO SCH ×4 (09:44→21:47)
[2018-05-03] MEDS: Benzocaine/Menthol (Cepacol) Lozenge MT PRN (10:02)
--- NOTE | 2018-05-03 10:26 | PN ---
DATE: 05/03/2018 REASON FOR CONSULTATION: Followup, cardiac evaluation, history of coronary artery disease admitted with shortness of breath, history of cervical cancer with metastasis, status post chemo, status post radiation. This note is in addition dictated by nurse practitioner, Velvet Mcqueen. The patient has with mets to the lung pressing the bronchial tree. The patient underwent yesterday MUGA scan, ejection fraction of 62%, possible, the patient has SVC syndrome and getting radiation. CVA status is stable, all these symptoms are most likely secondary to tumor mass pressing the thoracic inlet as well as the mainstem bronchus. We will closely follow CVA status, which are relatively stable. Thank you Dr. Ford for providing us the opportunity in taking care of the patient, Glenna Kitchen. Again, this note is in addition dictated by nurse practitioner, Velvet Mcqueen. Debby Oliva MD [facility]
--- NOTE | 2018-05-03 12:26 | PN ---
DATE: 05/03/2018 REFERRING PHYSICIAN: Evaristo Saldivar MD. SUBJECTIVE: The patent is sitting up at bedside. No overnight events reported. Continues to complain of odynophagia. Reports being able to tolerate diet. Reports some coughing. No shortness of breath, headache, rhinitis, chest pain, abdominal pain, nausea, vomiting, diarrhea, leg pain or leg swelling reported. OBJECTIVE: GENERAL: No acute distress. VITAL SIGNS: Blood pressure 159/90, pulse 83, temperature 98, oxygen saturation 95% on room air. HEENT: Moist mucous membranes. Crowded airway. NECK: Supple. No JVD. LUNGS: Fair airflow bilaterally. CARDIOVASCULAR: S1, S2. ABDOMEN: Soft, nontender. No distension. No organomegaly. EXTREMITIES: No bilateral lower extremity edema. NEUROLOGIC: Awake, alert, verbal. Follows commands. MEDICATIONS: Reviewed. Albuterol 2.5 mg inhalation every 6 hours p.r.n., Brovana 15 mcg every 12 hours, vitamin C 1000 mg daily, Cepacol throat lozenges every 2 hour p.r.n., Tessalon Perles 100 mg three times a day, Pulmicort 0.25 mg every 12 hours, BenGay 0.5 g topically four times a day p.r.n., Colace 100 mg twice a day, Lovenox 30 mg subcu daily, ergocalciferol 50,000 units one cap weekly, Imodium 2 mg every 8 hours p.r.n., Solu-Medrol 20 mg every 12 hours, morphine 2 mg every 3 hours p.r.n., Zofran 4 mg every 6 hours p.r.n., Percocet 2.5/325 mg every 4 hours p.r.n., Protonix 40 mg daily, MiraLax 17 g twice a day, Lyrica 25 mg twice a day, Phenergan with Codeine 5 mL every 6 hours p.r.n., saliva substitute 0.5 mL four times a day, Zoloft 25 mg daily and Carafate 1 g four times a day. LABORATORY DATA: Reviewed. WBC 3.6, RBC 3.14, hemoglobin 9.1, hematocrit 29.1, platelets 248. Sodium 141, potassium 3.9, chloride 106, carbon dioxide 25, anion gap 13, BUN 23, creatinine 1.5, GFR 35, random glucose 126, calcium 9.7, total bilirubin 3.1, AST 24, ALT 18, alkaline phosphatase 84, total protein 7.3, albumin 3.8, globulin 3.5, albumin-globulin ratio 1.1. Neck and chest CT report pending. 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 Head and neck CT report still pending. The patient refuses to use continuous positive airway pressure at this time. Continue inhaled bronchodilators, gastric prophylaxis, deep venous thrombosis prophylaxis. Head of bed elevated 45 degrees. Sleep apnea precaution. Continue Gastroenterology followup, currently undergoing radiation therapy. Continue to monitor for complications from radiation. The patient will need full pulmonary function test as outpatient. This patient was seen and examined with Dr. Reis. Discussed assessment and plan as described above. Thank you for this consult. We will follow with you. Hira Adame APN Debby Reis MD
--- NOTE | 2018-05-03 13:42 | CP.PCM.PN ---
Subjective - Date & Time of Evaluation Date of Evaluation: 05/03/18 Time of Evaluation: 10:45 - Subjective Subjective: Comfortable, afebrile, not in distress. Objective - Vital Signs/Intake and Output Vital Signs (last 24 hours): Temp Pulse Resp BP Pulse Ox 98.0 F 83 20 159/90 H 95 05/03/18 06:00 05/03/18 06:00 05/03/18 06:00 05/03/18 06:00 05/03/18 06:00 Intake and Output: 05/03/18 05/03/18 06:59 18:59 Output Total 600 Balance -600 - Medications Medications: Current Medications Albuterol Sulfate (Albuterol 0.083% Inhal Viviane (2.5 Mg/3 Ml) Ud) 2.5 mg INH [id number] PRN PRN Reason: Shortness of Breath Last Admin: 05/02/18 16:50 Dose: 2.5 mg Arformoterol Tartrate (Brovana) 15 mcg IH [id number] [facility] Last Admin: 05/03/18 07:27 Dose: 15 mcg Ascorbic Acid (Vitamin C 500 Mg Tab) 1,000 mg PO DAILY [facility] Last Admin: 05/03/18 09:43 Dose: 1,000 mg Benzocaine/Menthol (Cepacol Sore Throat) 1 devante MT Q2H PRN PRN Reason: Sore Throat Last Admin: 05/03/18 10:02 Dose: 1 devante Benzonatate (Tessalon Perles) 100 mg PO TID [facility] Last Admin: 05/03/18 09:43 Dose: 100 mg Budesonide (Pulmicort Respules) 0.25 mg IH [id number] [facility] Last Admin: 05/03/18 07:27 Dose: 0.25 mg Camphor/Menthol (Bengay) 0.5 gm TOP QID PRN PRN Reason: Bladder Spasm Last Admin: 04/25/18 21:18 Dose: 0.5 gm Al Hydrox/Mg Hydrox/Simethicone 30 ml/Diphenhydramine HCl 75 mg/Lidocaine 30 ml 0 ml PO Q2H PRN PRN Reason: Mouth/Throat Pain Last Admin: 05/02/18 13:46 Dose: 15 shae Docusate Sodium (Colace) 100 mg PO BID [facility] Last Admin: 05/03/18 11:17 Dose: Not Given Enoxaparin Sodium (Lovenox) 30 mg SC DAILY [facility]; Protocol Last Admin: 05/03/18 09:42 Dose: 30 mg Ergocalciferol (Drisdol 50,000 Intl Units Cap) 1 cap PO FRI [facility] Last Admin: 05/03/18 09:43 Dose: 1 cap Home Med (Home Med) 2 unit PO BID [facility] Last Admin: 05/03/18 09:41 Dose: 2 unit Loperamide HCl (Imodium) 2 mg PO Q8 PRN PRN Reason: diarrhea, loose stools Last Admin: 05/03/18 10:35 Dose: 2 mg Methylprednisolone (Solu-Medrol) 20 mg IVP Q12 [facility] Last Admin: 05/03/18 09:42 Dose: 20 mg Morphine Sulfate (Morphine) 2 mg IVP Q3H PRN PRN Reason: Pain, severe (8-10) Last Admin: 05/02/18 22:57 Dose: 2 mg Ondansetron HCl (Zofran Inj) 4 mg IVP Q6H PRN PRN Reason: Nausea/Vomiting Last Admin: 04/26/18 17:50 Dose: 4 mg Oxycodone/Acetaminophen (Percocet 2.5/325 Mg Tab) 1 tab PO Q4H PRN PRN Reason: Pain, moderate (4-7) Pantoprazole Sodium (Protonix Ec Tab) 40 mg PO 0600 [facility] Last Admin: 05/03/18 06:07 Dose: 40 mg Polyethylene Glycol (Miralax) 17 gm PO BID [facility] Last Admin: 05/03/18 09:42 Dose: Not Given Pregabalin (Lyrica) 25 mg PO BID [facility] Last Admin: 05/03/18 09:43 Dose: 25 mg Promethazine HCl/Codeine (Phenergan/Codeine Oral Syrup) 5 ml PO Q6H PRN PRN Reason: Cough Last Admin: 05/03/18 11:22 Dose: 5 ml Saliva Substitute (Saliva Substitute) 0.5 ml PO QID [facility] Last Admin: 05/03/18 09:44 Dose: 0.5 ml Sertraline HCl (Zoloft) 25 mg PO QAM [facility] Last Admin: 05/03/18 09:43 Dose: 25 mg Sucralfate (Carafate Oral Susp) 1 gm PO 0630,1130,1630,2200 [facility] Last Admin: 05/03/18 11:22 Dose: 1 gm - Labs Labs: 05/03/18 07:00 05/03/18 07:00 PT 12.2 SECONDS (9.4-12.5) 04/22/18 16:38 INR 1.07 04/22/18 16:38 APTT 30.8 Seconds (25.1-36.5) 04/22/18 16:38 - Constitutional Appears: Chronically Ill - Head Exam Head Exam: NORMAL INSPECTION - Respiratory Exam Respiratory Exam: Decreased Breath Sounds - Cardiovascular Exam Cardiovascular Exam: +S1, +S2 - GI/Abdominal Exam GI & Abdominal Exam: Soft. absent: Tenderness Assessment and Plan - Assessment and Plan (Free Text) Plan: Assessment S/P complicated UTI with E. coli and E. faecalis, in this patient with indwelling right sided nephrostomy tube presenting with hematuria - repeat urine cx negative history of Urinary tract infection with Klebsiella oxytoca history of pseudomonas, Klebsiella and Enterococcus faecalis UTI enterococcus and pseudomonas UTI in the past cervical cancer S/P chemotherapy and radiation therapy with history or radiation cystitis history of transient ischemic attack GERD coronary artery disease sleep apnea history of psoriasis history of diverticulitis history of depression chronic renal failure S/P nephrostomy tube placement Plan completed course of Zosyn, repeat urine cx are negative, monitor off antibiotics since she is at risk for nosocomial infections will have outpatient follow up with Dr. Ford
--- NOTE | 2018-05-03 14:00 | CP.PCM.PCO ---
Physician Communication Note - Physician Communication Note Physician Communication Note: CT neck pending result
--- NOTE | 2018-05-03 16:14 | CT ---
Date of service: 05/02/2018 PROCEDURE: CT neck and chest without contrast HISTORY: sub cut. emphysema, svc COMPARISON: Comparison is made to the previous CT of chest dated 04/12/2018 previous PET-CT dated 03/12/2018 TECHNIQUE: Contiguous axial images were obtained through the neck and chest without intravenous contrast enhancement. Sagittal and coronal reconstructions were performed. Radiation dose: Total exam DLP = 647.3 mGy-cm. This CT exam was performed using one or more of the following dose reduction techniques: Automated exposure control, adjustment of the mA and/or kV according to patient size, and/or use of iterative reconstruction technique. FINDINGS: CT of the neck without contrast: There is a mildly enlarged right upper neck level 2 lymph node measures 1.3 centimeter. There is moderate to severe narrowing of the upper airway at the level of the nasal oral pharynx noted. Diffuse soft tissue swelling noted in the subglottic and glottic portion of the larynx. There are moderately enlarged lymph nodes at the lower portion and base of the neck. The parotid gland, submandibular salivary gland and thyroid gland are grossly unremarkable. CT of the chest without contrast: LUNGS: There is interval increase in the size of the airspace opacity at the right lung upper lobe since the previous exam. There is new pleural base 1.3 centimeter nodule at the right lung upper lobe adjacent to the right fissure. There are ground-glass opacities noted in the right upper lobe. There is also interval worsening of opacities and bronchiectasis at the medial aspect of the right middle lobe since the prior exam. The right mediastinum and right hilar mass is encasing and moderately to severely narrowing the right main bronchus and right upper lobe bronchus. MEDIASTINUM: The thoracic aorta is ectatic and tortuous. The heart is normal in size. There is trace/small pleural effusion versus pleural thickening again noted. The main pulmonary artery is mildly enlarged. There is interval increase in the size of the right upper and mid mediastinum mass lesion extending from the thoracic inlet to the level of the right hilum and subcarinal region since the previous exam. There are also mildly enlarged lymph nodes at the AP window. Small foci of atherosclerotic calcification noted at the aortic arch. PLEURA: There is interval appearance of small right pleural effusion since the previous exam. BONES: No fracture. No destructive lesion. UPPER ABDOMEN: Grossly unremarkable. OTHER FINDINGS: There is left-sided PICC line/central line extending to the distal SVC. IMPRESSION: Limited evaluation without IV contrast administration. Interval increase in the size of the right lower neck lymphadenopathy since the previous exam. Mildly enlarged right upper neck level 2 lymph node. Moderate to mildly severe narrowing of the upper airway at the level of the nasal oral pharynx and supraglottic region. Interval increase in the size of the soft tissue mass lesion at right mediastinum since the prior study. Interval worsening of airspace opacities at the right upper lobe and right middle lobe since the prior study. The differential consideration includes worsening lung metastasis versus superimposed infection. Interval appearance of small right pleural effusion since the prior exam. Moderate to mildly severe narrowing of the right main bronchus and right upper lobe bronchus by the right mediastinal and right hilar mass. The possibility of occlusion or severe narrowing of the SVC should be considered. Preliminary report was submitted by [facility] Radiology contains concordant findings.
[2018-05-03] MEDS: Aluminum Hydroxide/Magnesium 30 ML, DiphenhydrAMINE 75 MG, Lidocaine 2% Viscous 30 ML PO PRN (18:07)
[2018-05-03] MEDS: Morphine 2 mg/ml ISec IVP PRN (20:13)
[2018-05-04] MEDS: Pantoprazole 40 mg EC Tab PO SCH (05:31)
[2018-05-04] MEDS: Sucralfate 1 gm/10 ml Oral Susp UD PO SCH ×4 (05:31→21:12)
[2018-05-04] MEDS: Morphine 2 mg/ml ISec IVP PRN ×2 (05:31→19:19)
[2018-05-04] MEDS: Promethazine/Cod 6.25mg-10mg/5ml Syr UD PO PRN ×3 (05:40→21:12)
[2018-05-04 06:42] LABS: HEMOGLOBIN 9.4 g/dL (12.0-16.0); LYMPH # 0.3 (1.2-3.4); LYMPH % 7.8 % (22.0-35.0); MEAN CELL VOLUME 93.3 fl (80.0-105.0); MEAN CORPUSCULAR HEMOGLOBIN 28.7 pg (25.0-35.0); MEAN CORPUSCULAR HGB CONC 30.8 g/dl (31.0-37.0); MEAN PLATELET VOLUME 9.7 fl (7.0-11.0); MONO # 0.2 (0.1-0.6); MONO % 4.6 % (1.0-6.0); RBC 3.27 10^6/uL (3.5-6.1); WHITE BLOOD COUNT 4.3 10^3/uL (4.5-11.0)
[2018-05-04 06:50] LABS: ALB/GLOB RATIO 1.1 (1.1-1.8); ALBUMIN 3.9 g/dL (3.0-4.8); CALCIUM 9.6 mg/dL (8.4-10.5)
--- NOTE | 2018-05-04 07:19 | CP.PCM.PN ---
Subjective - Date & Time of Evaluation Date of Evaluation: 05/04/18 Time of Evaluation: 06:50 - Subjective Subjective: Lying in bed, Awake, alert, no distress Reason for consultation and follow up:Cardiac evaluation and follow up of history of coronary artery disease, post stent, admitted for cough and shortness of breath, history of cervical cancer with metastasis, post chemotherapy and radiation. Seen and examined by me and Dr. Oliva Objective - Vital Signs/Intake and Output Vital Signs (last 24 hours): Temp Pulse Resp BP Pulse Ox 98.6 F 97 H 18 150/88 96 05/03/18 16:08 05/03/18 16:08 05/03/18 16:08 05/03/18 18:06 05/03/18 16:08 Intake and Output: 05/04/18 05/04/18 06:59 18:59 Intake Total 1560 60 Output Total 700 925 Balance 860 -865 - Medications Medications: Current Medications Albuterol Sulfate (Albuterol 0.083% Inhal Viviane (2.5 Mg/3 Ml) Ud) 2.5 mg INH [id number] PRN PRN Reason: Shortness of Breath Last Admin: 05/02/18 16:50 Dose: 2.5 mg Arformoterol Tartrate (Brovana) 15 mcg IH [id number] [facility] Last Admin: 05/03/18 19:09 Dose: 15 mcg Ascorbic Acid (Vitamin C 500 Mg Tab) 1,000 mg PO DAILY [facility] Last Admin: 05/03/18 09:43 Dose: 1,000 mg Benzocaine/Menthol (Cepacol Sore Throat) 1 devante MT Q2H PRN PRN Reason: Sore Throat Last Admin: 05/03/18 10:02 Dose: 1 devante Benzonatate (Tessalon Perles) 100 mg PO TID [facility] Last Admin: 05/03/18 17:21 Dose: 100 mg Budesonide (Pulmicort Respules) 0.25 mg IH [id number] [facility] Last Admin: 05/03/18 19:10 Dose: 0.25 mg Camphor/Menthol (Bengay) 0.5 gm TOP QID PRN PRN Reason: Bladder Spasm Last Admin: 04/25/18 21:18 Dose: 0.5 gm Al Hydrox/Mg Hydrox/Simethicone 30 ml/Diphenhydramine HCl 75 mg/Lidocaine 30 ml 0 ml PO Q2H PRN PRN Reason: Mouth/Throat Pain Last Admin: 05/03/18 18:07 Dose: 15 shae Docusate Sodium (Colace) 100 mg PO BID [facility] Last Admin: 05/03/18 17:21 Dose: Not Given Enoxaparin Sodium (Lovenox) 30 mg SC DAILY [facility]; Protocol Last Admin: 05/03/18 09:42 Dose: 30 mg Ergocalciferol (Drisdol 50,000 Intl Units Cap) 1 cap PO FRI [facility] Last Admin: 05/03/18 09:43 Dose: 1 cap Home Med (Home Med) 2 unit PO BID [facility] Last Admin: 05/03/18 17:21 Dose: 2 unit Loperamide HCl (Imodium) 2 mg PO Q8 PRN PRN Reason: diarrhea, loose stools Last Admin: 05/03/18 18:07 Dose: 2 mg Methylprednisolone (Solu-Medrol) 40 mg IVP Q12 [facility] Last Admin: 05/03/18 21:48 Dose: 40 mg Morphine Sulfate (Morphine) 2 mg IVP Q6H PRN PRN Reason: Pain, severe (8-10) Last Admin: 05/04/18 05:31 Dose: 2 mg Ondansetron HCl (Zofran Inj) 4 mg IVP Q6H PRN PRN Reason: Nausea/Vomiting Last Admin: 04/26/18 17:50 Dose: 4 mg Oxycodone/Acetaminophen (Percocet 2.5/325 Mg Tab) 1 tab PO Q4H PRN PRN Reason: Pain, moderate (4-7) Pantoprazole Sodium (Protonix Ec Tab) 40 mg PO 0600 [facility] Last Admin: 05/04/18 05:31 Dose: 40 mg Polyethylene Glycol (Miralax) 17 gm PO BID [facility] Last Admin: 05/03/18 17:21 Dose: Not Given Pregabalin (Lyrica) 25 mg PO BID [facility] Last Admin: 05/03/18 17:21 Dose: 25 mg Promethazine HCl/Codeine (Phenergan/Codeine Oral Syrup) 5 ml PO Q6H PRN PRN Reason: Cough Last Admin: 05/04/18 05:40 Dose: 5 ml Saliva Substitute (Saliva Substitute) 0.5 ml PO QID [facility] Last Admin: 05/03/18 21:47 Dose: 0.5 ml Sertraline HCl (Zoloft) 25 mg PO QAM [facility] Last Admin: 05/03/18 09:43 Dose: 25 mg Sucralfate (Carafate Oral Susp) 1 gm PO 0630,1130,1630,2200 [facility] Last Admin: 05/04/18 05:31 Dose: 1 gm - Labs Labs: 05/04/18 05:00 05/04/18 05:00 PT 12.2 SECONDS (9.4-12.5) 04/22/18 16:38 INR 1.07 04/22/18 16:38 APTT 30.8 Seconds (25.1-36.5) 04/22/18 16:38 - Constitutional Appears: Non-toxic, No Acute Distress - Head Exam Head Exam: NORMAL INSPECTION, NORMOCEPHALIC - Eye Exam Eye Exam: Normal appearance Pupil Exam: NORMAL ACCOMODATION - ENT Exam ENT Exam: Mucous Membranes Moist, Normal Exam - Respiratory Exam Respiratory Exam: Decreased Breath Sounds, NORMAL BREATHING PATTERN - Cardiovascular Exam Cardiovascular Exam: +S1, +S2 - GI/Abdominal Exam GI & Abdominal Exam: Soft, Normal Bowel Sounds - Exam Additional comments: nephrostomy tube bilateral - Extremities Exam Extremities Exam: Full ROM, Normal Capillary Refill - Neurological Exam Neurological Exam: Alert, Awake, Oriented x3 - Psychiatric Exam Psychiatric exam: Normal Affect, Normal Mood - Skin Skin Exam: Dry, Normal Color, Warm Assessment and Plan - Assessment and Plan (Free Text) Assessment: A 67 year old female who came in to the ER due to cough and shortness of breath. History of coronary artery disease, post stent, admitted for cough and shortness of breath, history of cervical cancer with metastasis, post chemotherapy and radiation, chronic renal insufficiency, bilateral nephrostomy,hydronephrosis, radiation cystitis, and psoriasis,depression, vesicovaginal fistula. Now metastasis to the lung with external compression of the bronchus.MUGA scan done LVEF 62%. Urinary tract infection, E.Coli in urine, completed antibiotics therapy, repeat urine culture, negative. Off antibiotics per ID. Radiation therapy in progress until the . Seen by Dr. Black for possible SVC syndrome. Cardiac status stable.Seen by Dr. Black for possible SVC syndrome. Plan: No distress Cardiac status stable Heart rate controlled Blood pressure controlled Radiation therapy in progress Continue current treatment Continue current medications Completed antibiotic therapy for UTI, repeat cultures negative OOB to chair Will follow up Plan and treatment discussed with Dr. Oliva
[2018-05-04] MEDS: Arformoterol 15 mcg/2 ml Inh Sol IH SCH ×2 (07:42→19:29)
[2018-05-04] MEDS: Budesonide 0.25 mg/2 ml Inhal Susp UD IH SCH ×2 (07:42→19:29)
[2018-05-04 08:05] VITALS: RESP 20
[2018-05-04] MEDS ORDERED: MethylPREDNISolone 40 mg Vial IVP SCH (10:00)
--- NOTE | 2018-05-04 10:14 | PN ---
DATE: 05/04/2018 PULMONARY PROGRESS NOTE REFERRING PHYSICIAN: Evaristo Saldivar MD. SUBJECTIVE: The patent is sitting up In bed. No acute distress. Reports feeling slightly better this morning. No headache, rhinitis, chest pain, abdominal pain, nausea, vomiting, diarrhea, leg pain or leg swelling reported. The patient does reports still having some coughing and shortness of breath which has improved slightly. OBJECTIVE: GENERAL: No acute distress. VITAL SIGNS: Blood pressure 154/96, pulse 89, temperature 97.4 and oxygen saturation 93%. HEENT: Moist mucous membranes. Crowded airway. NECK: Supple. No JVD. LUNGS: Fair airflow bilaterally. CARDIOVASCULAR: S1 and S2, audible. ABDOMEN: Soft and nontender. No distension. No organomegaly. EXTREMITIES: No bilateral lower extremity edema. NEUROLOGIC: Awake, alert and verbal. Follows commands. MEDICATIONS: Reviewed. Albuterol 2.5 mg inhalation every 6 hours p.r.n., Brovana 15 mcg Inhalation every 12 hours, vitamin C 1000 mg p.o. daily, Cepacol throat lozenges every 2 hour p.r.n., Tessalon Perles 100 mg three times a day, Pulmicort 0.25 mg inhalation every 12 hours, Bengay topically four times a day p.r.n. to affected area, Colace 100 mg twice a day, Lovenox 30 mg subcutaneous daily, ergocalciferol 50,000 units every Sunday, Imodium 2 mg every 8 hours p.r.n., Solu-Medrol 40 mg every 12 hours, morphine 2 mg every 6 hours p.r.n., Zofran 4 mg every 6 hours p.r.n., Percocet 2.5/325 mg every 4 hours p.r.n., Protonix 40 mg daily, MiraLax 17 g twice a day, Lyrica 25 mg twice a day, Phenergan with codeine 5 mL every 6 hours p.r.n., saliva substitute 0.5 four times a day, Zoloft 25 mg in the morning and Carafate 1 g four times a day. LABORATORY DATA: Reviewed. WBC 4.3, RBC 3.27, hemoglobin 9.4, hematocrit 30.5 and platelets 273. Sodium 140, potassium 4.3, chloride 107, carbon dioxide 28, anion gap 10, BUN 26, creatinine 1.5, GFR 35, random glucose 110, calcium 9.6, total bilirubin 0.1, AST 37, ALT 24, alkaline phosphatase 75, total protein 7.3, albumin 3.9, globulin 3.5 and albumin-globulin ratio 1.1. Neck and chest CT shows interval increase in size of right lower and neck lymphadenopathy, mildly enlarged right upper neck level 2 lymph node, moderate to mildly severe narrowing of the upper airway of the level of the nasal oropharynx and supraglottal region, interval increase in the size of the soft tissue mass lesion at right mediastinum since prior study, worsening of the airspace opacity of the right upper lobe and right middle lobe since prior studies, interval appearance of small right pleural effusion, moderate to mildly severe narrowing of the right main bronchus and right upper lobe bronchus by the right mediastinal and right hilar mass. IMPRESSION AND PLAN: Metastatic cervical cancer with metastases to the lung causing external compression to the bronchus, history of renal failure requiring bilateral nephrostomy drainage, coronary artery disease, history of coronary stents, bronchitis, obstructive sleep apnea syndrome, pulmonary hypertension, history of Watkins's esophagus, due to CT scan of the neck and chest results suspect radiation induced swelling and need to monitor closely. We will order proBNP and procalcitonin level. The patient needs to continue inhaled bronchodilators, gastric prophylaxis and deep venous thrombosis prophylaxis. Refusing continuous positive airway pressure use at this time. Head of bed elevated at 45 degrees. Sleep apnea precaution. The patient will need full pulmonary function test as outpatient. Need to monitor the patient closely. This patient was seen and examined with Dr. Reis. Discussed assessment and plan as described above. Thank you for this consult. We will follow with you. Hira Adame APN Debby Reis MD
[2018-05-04] MEDS: TRANEXAMIC ACID 650 MG PO SCH ×2 (10:43→17:19)
[2018-05-04] MEDS: Enoxaparin 30 mg Syringe SC SCH (10:45)
[2018-05-04] MEDS: POLYETHYLENE GLYCOL 3350 17 GM/Dose PACKET PO SCH ×3 (10:45→18:52)
[2018-05-04] MEDS: Saliva Substitute 44.3 ML PO SCH ×4 (10:45→21:15)
[2018-05-04] MEDS: MethylPREDNISolone 40 mg Vial IVP SCH ×2 (10:46→21:12)
--- NOTE | 2018-05-04 12:02 | PN ---
DATE: 05/04/2018 SUBJECTIVE: The patient is in bed in no acute distress, nontoxic. PHYSICAL EXAMINATION: VITAL SIGNS: Temperature is 97, blood pressure is 150/100 and respiratory rate of 20, heart rate of 97. HEENT: Unremarkable. NECK: Supple. LUNGS: Have decreased breath sounds. HEART: Normal S1, S2. ABDOMEN: Soft, nontender. LABORATORY EXAMINATION: Reveals a white count of 4.3, hemoglobin of 9, platelets of 273. BUN of 26, creatinine of 1.5 and BNP is 2580 and urinalysis is noted and influenza is negative. Microbiology reveals E. coli and Enterococcus. Review of orders. The patient is on Solu-Medrol. ASSESSMENT AND PLAN: This is a 67-year-old female who was seen earlier in [facility], bed 1, who is overall improving status post complicated urinary tract infection with Escherichia coli and Enterococcus faecalis. The patient with indwelling right-sided nephrostomy tube, presenting with hematuria, repeat cultures are negative and the patient with history of Klebsiella, urinary tract infection, history of also with Pseudomonas, Klebsiella and Enterococcus and with cervical cancer status post chemotherapy and radiation and completed a course of Zosyn, currently now off of antibiotics, afebrile. The patient is at risk for developing nosocomial infections. Rogers Pitts MD
--- NOTE | 2018-05-04 16:43 | PN ---
DATE: 05/04/2018 Mr. Glenna Kitchen for hospital visit on the medical floor. For Dr. Ford. SUBJECTIVE: The patient is a 67-year-old female, seen lying awake in bed with her family members at the bedside. Reporting swelling of her left breast with shortness of breath returning. The patient is known to suffer from cervical cancer with metastasis to the lung with external compression on her bronchus, now with radiation treatments and superior vena cava syndrome with the patient known to have episodes of severe anemia with bilateral nephrostomy tubes, continuing which the patient takes tranexamic acid with good effect. It is also known as the patient's left upper extremity port at this time also may be occluded secondary to tumor. OBJECTIVE: VITAL SIGNS: Temperature 97.4, pulse 91, respirations 20, blood pressure 146/95 and pulse oximetry 93%. HEENT: Poor dentition. NECK: With crepitus appreciated and questionable JVD. HEART: Regular rate, occasional ectopic beat. LUNGS: Minimal decreased breath sounds. ABDOMEN: Obese, soft, and nontender. BREAST: Significant edema of the left breast, minimal erythema. NEUROLOGIC: Awake and alert. SKIN: Otherwise warm and dry. She has a port-a-cath in the left upper extremity which again is not used at this time with evaluation pending by Dr. Bruce Black. LABORATORY DATA: The patient did have a CT scan of the neck and chest done 2 days prior. The impression is that of increase interval in size of the right lower neck lymphadenopathy, mildly enlarged right upper neck level to lymph node moderate to mildly severe now in the upper airway at the level of nasal oropharynx and supraglottic region, interval increase in the size of the soft tissue mass at the right mediastinum since prior study, interval worsening of the airspace opacity of the right upper lobe and right middle lobe since prior studies, differential consideration includes worsening lung metastasis versus superimposed infection, interval appearance of small right pleural effusion since the prior exam, moderate to mildly severe narrowing of the right main bronchus and right upper lobe bronchus by the right mediastinal and right hilar mass, the possibility of occlusion or severe narrowing of the superior vena cava should be considered. ASSESSMENT: For this patient is that of superior vena cava syndrome, odynophagia, progressive stage IV carcinoma of the cervix with documented recurrence in the mediastinum in the right hilum with compression of the bronchus, edema left breast, percutaneous nephrostomy tubes, anemia of chronic disease, Watkins's esophagus, pulmonary hypertension, atherosclerotic cardiovascular disease, history of non-ST elevated myocardial infarction, 5 vessel bare-metal stent history, depression, chronic pain, history of transient ischemic attacks and history of urinary tract infections. PLAN: For this patient, to continue present medical regimen with analgesics beginning for her pain with consultants recommendations to be followed with radiation to continue along with monitoring clinically. The patient is a complex patient with a comprehensive medically necessary and appropriate visit carried out an excess of 30 minutes with the patient's questions answered to her satisfaction. Evaristo Saldivar MD
[2018-05-05] MEDS: Pantoprazole 40 mg EC Tab PO SCH (05:29)
[2018-05-05] MEDS: Sucralfate 1 gm/10 ml Oral Susp UD PO SCH ×4 (05:30→21:02)
[2018-05-05] MEDS: Promethazine/Cod 6.25mg-10mg/5ml Syr UD PO PRN ×2 (06:09→11:12)
[2018-05-05 06:25] LABS: HEMOGLOBIN 10.3 g/dL (12.0-16.0); LYMPH # 0.4 (1.2-3.4); LYMPH % 8.9 % (22.0-35.0); MEAN CELL VOLUME 93.6 fl (80.0-105.0); MEAN CORPUSCULAR HEMOGLOBIN 28.8 pg (25.0-35.0); MEAN CORPUSCULAR HGB CONC 30.7 g/dl (31.0-37.0); MEAN PLATELET VOLUME 9.6 fl (7.0-11.0); MONO # 0.2 (0.1-0.6); MONO % 4.9 % (1.0-6.0); RBC 3.58 10^6/uL (3.5-6.1); WHITE BLOOD COUNT 4.7 10^3/uL (4.5-11.0)
--- NOTE | 2018-05-05 06:46 | CP.PCM.PN ---
Subjective - Date & Time of Evaluation Date of Evaluation: 05/05/18 Time of Evaluation: 06:40 - Subjective Subjective: Sitting at side of bed, Awake, alert, no distress Reason for consultation and follow up:Cardiac evaluation and follow up of history of coronary artery disease, post stent, admitted for cough and shortness of breath, history of cervical cancer with metastasis, post chemotherapy and radiation. Seen and examined by me and Dr. Oliva Objective - Vital Signs/Intake and Output Vital Signs (last 24 hours): Temp Pulse Resp BP Pulse Ox 98.4 F 96 H 20 153/95 H 91 L 05/04/18 17:09 05/04/18 17:09 05/04/18 17:09 05/04/18 17:09 05/04/18 17:09 Intake and Output: 05/04/18 05/05/18 18:59 06:59 Intake Total 60 1980 Output Total 925 1400 Balance -865 580 - Medications Medications: Current Medications Albuterol Sulfate (Albuterol 0.083% Inhal Viviane (2.5 Mg/3 Ml) Ud) 2.5 mg INH [id number] PRN PRN Reason: Shortness of Breath Last Admin: 05/02/18 16:50 Dose: 2.5 mg Amlodipine Besylate (Norvasc) 5 mg PO DAILY [facility] Arformoterol Tartrate (Brovana) 15 mcg IH [id number] [facility] Last Admin: 05/04/18 19:29 Dose: 15 mcg Ascorbic Acid (Vitamin C 500 Mg Tab) 1,000 mg PO DAILY [facility] Last Admin: 05/04/18 10:46 Dose: 1,000 mg Benzocaine/Menthol (Cepacol Sore Throat) 1 devante MT Q2H PRN PRN Reason: Sore Throat Last Admin: 05/03/18 10:02 Dose: 1 devante Benzonatate (Tessalon Perles) 100 mg PO TID [facility] Last Admin: 05/04/18 17:20 Dose: 100 mg Budesonide (Pulmicort Respules) 0.25 mg IH [id number] [facility] Last Admin: 05/04/18 19:29 Dose: 0.25 mg Camphor/Menthol (Bengay) 0.5 gm TOP QID PRN PRN Reason: Bladder Spasm Last Admin: 04/25/18 21:18 Dose: 0.5 gm Al Hydrox/Mg Hydrox/Simethicone 30 ml/Diphenhydramine HCl 75 mg/Lidocaine 30 ml 0 ml PO Q2H PRN PRN Reason: Mouth/Throat Pain Last Admin: 05/03/18 18:07 Dose: 15 shae Docusate Sodium (Colace) 100 mg PO BID [facility] Last Admin: 05/04/18 20:30 Dose: Not Given Enoxaparin Sodium (Lovenox) 30 mg SC DAILY [facility]; Protocol Last Admin: 05/04/18 10:45 Dose: 30 mg Ergocalciferol (Drisdol 50,000 Intl Units Cap) 1 cap PO FRI [facility] Last Admin: 05/03/18 09:43 Dose: 1 cap Home Med (Home Med) 2 unit PO BID [facility] Last Admin: 05/04/18 17:19 Dose: 2 unit Loperamide HCl (Imodium) 2 mg PO Q8 PRN PRN Reason: diarrhea, loose stools Last Admin: 05/04/18 15:02 Dose: 2 mg Methylprednisolone (Solu-Medrol) 40 mg IVP Q12 [facility] Last Admin: 05/04/18 21:12 Dose: 40 mg Morphine Sulfate (Morphine) 2 mg IVP Q6H PRN PRN Reason: Pain, severe (8-10) Last Admin: 05/04/18 19:19 Dose: 2 mg Ondansetron HCl (Zofran Inj) 4 mg IVP Q6H PRN PRN Reason: Nausea/Vomiting Last Admin: 04/26/18 17:50 Dose: 4 mg Oxycodone/Acetaminophen (Percocet 2.5/325 Mg Tab) 1 tab PO Q4H PRN PRN Reason: Pain, moderate (4-7) Pantoprazole Sodium (Protonix Ec Tab) 40 mg PO 0600 [facility] Last Admin: 05/05/18 05:29 Dose: 40 mg Polyethylene Glycol (Miralax) 17 gm PO BID [facility] Last Admin: 05/04/18 18:52 Dose: 17 gm Pregabalin (Lyrica) 25 mg PO BID [facility] Last Admin: 05/04/18 17:19 Dose: 25 mg Promethazine HCl/Codeine (Phenergan/Codeine Oral Syrup) 5 ml PO Q6H PRN PRN Reason: Cough Last Admin: 05/05/18 06:09 Dose: 5 ml Saliva Substitute (Saliva Substitute) 0.5 ml PO QID [facility] Last Admin: 05/04/18 21:15 Dose: 0.5 ml Sertraline HCl (Zoloft) 25 mg PO QAM [facility] Last Admin: 05/04/18 10:46 Dose: 25 mg Sucralfate (Carafate Oral Susp) 1 gm PO 0630,1130,1630,2200 [facility] Last Admin: 05/05/18 05:30 Dose: 1 gm - Labs Labs: 05/04/18 05:00 05/04/18 05:00 PT 12.2 SECONDS (9.4-12.5) 04/22/18 16:38 INR 1.07 04/22/18 16:38 APTT 30.8 Seconds (25.1-36.5) 04/22/18 16:38 - Constitutional Appears: Non-toxic, No Acute Distress - Head Exam Head Exam: NORMAL INSPECTION, NORMOCEPHALIC - Eye Exam Eye Exam: Normal appearance Pupil Exam: NORMAL ACCOMODATION - ENT Exam ENT Exam: Mucous Membranes Moist, Normal Exam - Neck Exam Neck Exam: Full ROM, Normal Inspection - Respiratory Exam Respiratory Exam: Decreased Breath Sounds, Clear to Ausculation Bilateral, NORMAL BREATHING PATTERN - Cardiovascular Exam Cardiovascular Exam: +S1, +S2 - GI/Abdominal Exam GI & Abdominal Exam: Soft, Normal Bowel Sounds - Extremities Exam Extremities Exam: Full ROM, Normal Capillary Refill - Neurological Exam Neurological Exam: Alert, Awake, Oriented x3 - Psychiatric Exam Psychiatric exam: Normal Affect, Normal Mood - Skin Skin Exam: Dry, Normal Color, Warm Assessment and Plan - Assessment and Plan (Free Text) Assessment: A 67 year old female who came in to the ER due to cough and shortness of breath. History of coronary artery disease, post stent, admitted for cough and shortness of breath, history of cervical cancer with metastasis, post chemotherapy and radiation, chronic renal insufficiency, bilateral nephrostomy,hydronephrosis, radiation cystitis, and psoriasis,depression, vesicovaginal fistula. Now metastasis to the lung with external compression of the bronchus.MUGA scan done LVEF 62%. Urinary tract infection, E.Coli in urine, completed antibiotics therapy, repeat urine culture, negative. Off antibiotics per ID. Seen by Dr. Black for possible SVC syndrome. Cardiac status stable.Seen by Dr. Black for possible SVC syndrome. Radiation therapy in progress until the . Completed antibiotic therapy for UTI, repeat cultures negative. Plan: Radiation therapy in progress till the Itchiness at left breast ,cream applied No distress Cardiac status stable Heart rate controlled Added Norvasc for Blood pressure control Continue current treatment Continue current medications Completed antibiotic therapy for UTI, repeat cultures negative OOB to chair Will follow up Plan and treatment discussed with Dr. Oliva
[2018-05-05 06:47] LABS: ALB/GLOB RATIO 1.1 (1.1-1.8); ALBUMIN 4.3 g/dL (3.0-4.8)
[2018-05-05] MEDS: Aluminum Hydroxide/Magnesium 30 ML, DiphenhydrAMINE 75 MG, Lidocaine 2% Viscous 30 ML PO PRN (06:54)
[2018-05-05] MEDS: Budesonide 0.25 mg/2 ml Inhal Susp UD IH SCH ×2 (07:55→20:08)
[2018-05-05] MEDS: Arformoterol 15 mcg/2 ml Inh Sol IH SCH ×2 (07:55→20:08)
--- NOTE | 2018-05-05 08:52 | PN ---
DATE: 05/05/2018 PULMONARY PROGRESS NOTE REFERRING PHYSICIAN: Evaristo Saldivar MD SUBJECTIVE: The patent is sitting up in bedside. No acute distress. No overnight events reported. The patient reports feeling well today, still with some throat discomfort, but it has improved some. No headache, rhinitis, cough, shortness of breath, chest pain, abdominal pain, nausea, vomiting, diarrhea, leg pain or leg swelling reported. OBJECTIVE: GENERAL: No acute distress. VITAL SIGNS: Blood pressure 152/87, pulse 87, temperature 97.7 and oxygen saturation 96% on room air. HEENT: Moist mucous membranes. Crowded airway. Linear flat red rash noted to left breast and chest. NECK: Supple. No JVD. LUNGS: Fair airflow bilaterally. CARDIOVASCULAR: S1 and S2, audible. ABDOMEN: Soft and nontender. No distension. No organomegaly. EXTREMITIES: No bilateral lower extremity edema. NEUROLOGIC: Awake, alert and verbal. Follows commands. MEDICATIONS: Reviewed. Albuterol 2.5 mg inhalation every 6 hours p.r.n., Norvasc 5 mg daily, Brovana 15 mcg every 12 hours, vitamin C 1000 mg daily, Cepacol throat lozenges every 2 hour p.r.n., Tessalon Perles 100 mg 3 times a day, Pulmicort 0.25 mg inhalation every 12 hours, Bengay topically 4 times a day p.r.n, Colace 100 mg twice a day, Lovenox 30 mg subcutaneous daily, ergocalciferol 50,000 units every weekly, Imodium 2 mg every 8 hours p.r.n., Solu-Medrol 40 mg every 12 hours, morphine sulfate 2 mg every 6 hours p.r.n., Percocet 2.5/325 mg every 4 hours p.r.n., Protonix 40 mg daily, MiraLax 17 g twice a day, Lyrica 25 mg twice a day, Phenergan with codeine 5 mL every 6 hours p.r.n., saliva substitute four times a day, Zoloft 25 mg daily and Carafate 1 g 4 times a day. LABORATORY DATA: Reviewed. WBC 4.7, RBC 3.58, hemoglobin 10.3, hematocrit 33.5 and platelets 291. Sodium 140, potassium 3.8, chloride 104, carbon dioxide 26, anion gap 14, BUN 31, creatinine 1.5, GFR 35, random glucose 114, calcium 10, total bilirubin 0.2, AST 25, ALT 17, alkaline phosphatase 83, proBNP 2580, total protein 8.1, albumin 4.3, globulin 3.8 and albumin-globulin ratio 1.1, procalcitonin less than 0.05. IMPRESSION AND PLAN: Metastatic cervical cancer with metastases to the lung causing external compression to the bronchus, history of renal failure requiring bilateral nephrostomy drainage, coronary artery disease, history of coronary stents, bronchitis, obstructive sleep apnea syndrome, pulmonary hypertension, history of Watkins's esophagus. Continue inhaled bronchodilators, gastric prophylaxis and deep venous thrombosis prophylaxis. The patient refuses to use continuous positive airway pressure use. Continue sleep apnea precaution, head of bed elevated at 45 degrees. Redness to chest may be radiation induced, the patient currently undergoing radiation therapy. The patient will need full pulmonary function test as outpatient. This patient was seen and examined with Dr. Reis. Discussed assessment and plan as described above. Thank you for this consult and we will follow with you. Hira Adame APN Debby Reis MD [facility]
[2018-05-05] MEDS: Enoxaparin 30 mg Syringe SC SCH (09:20)
[2018-05-05] MEDS: POLYETHYLENE GLYCOL 3350 17 GM/Dose PACKET PO SCH ×2 (09:20→17:24)
[2018-05-05] MEDS: TRANEXAMIC ACID 650 MG PO SCH ×2 (09:20→17:23)
[2018-05-05] MEDS: MethylPREDNISolone 40 mg Vial IVP SCH ×2 (09:22→21:02)
[2018-05-05] MEDS: Saliva Substitute 44.3 ML PO SCH ×4 (09:22→21:05)
[2018-05-05] MEDS ORDERED: Acetylcysteine 20% Inhal Soln (4ml) IH SCH (14:30)
--- NOTE | 2018-05-05 14:45 | PN ---
DATE: 05/05/2018 SUBJECTIVE: The patient is in bed in no acute distress, nontoxic. She is awake and alert, doing well. PHYSICAL EXAMINATION VITAL SIGNS: Temperature is 98, blood pressure is 150/80, respiratory rate of 20, heart rate of 91. HEENT: Examination of HEENT is unremarkable. NECK: Supple. LUNGS: Have decreased breath sounds. HEART: Normal S1 and S2. ABDOMEN: Soft, nontender. LABORATORY DATA: Laboratory examination reveals a white count of 4.7, hemoglobin of 10, platelets of 291. BUN of 31, creatinine of 1.5, the BNP is 2580 and the procalcitonin is less than 0.05. Urinalysis is noted, E. coli and Enterococcus. Urine culture is negative. ASSESSMENT AND PLAN: This is a 67-year-old female who was seen earlier today in room 360, bed 1, status post complicated urinary tract infection with Escherichia coli and Enterococcus faecalis and an indwelling right-sided nephrostomy tube, presenting with hematuria. Repeat culture is negative and a patient with history of Klebsiella urinary tract and history of Pseudomonas and Klebsiella and Enterococcus urinary tract infection and cervical cancer, status post chemotherapy, has completed a course of Zosyn. Currently, the patient is off antibiotics. Review of orders confirms the patient to be off antibiotics. The patient is on Solu-Medrol and the patient is at risk for developing nosocomial infections. Rogers Pitts MD
[2018-05-05] MEDS: Benzocaine/Menthol (Cepacol) Lozenge MT PRN (17:24)
[2018-05-05] MEDS: Acetylcysteine 20% Inhal Soln (4ml) IH SCH (20:08)
[2018-05-05] MEDS: Morphine 2 mg/ml ISec IVP PRN (21:01)
[2018-05-06] MEDS: Morphine 2 mg/ml ISec IVP PRN ×3 (02:55→22:19)
[2018-05-06] MEDS: Sucralfate 1 gm/10 ml Oral Susp UD PO SCH ×4 (06:00→22:20)
[2018-05-06] MEDS: Pantoprazole 40 mg EC Tab PO SCH (06:00)
[2018-05-06 06:41] LABS: HEMOGLOBIN 9.3 g/dL (12.0-16.0); LYMPH # 0.4 (1.2-3.4); LYMPH % 6.4 % (22.0-35.0); MEAN CELL VOLUME 93.1 fl (80.0-105.0); MEAN CORPUSCULAR HEMOGLOBIN 29.2 pg (25.0-35.0); MEAN CORPUSCULAR HGB CONC 31.3 g/dl (31.0-37.0); MEAN PLATELET VOLUME 9.6 fl (7.0-11.0); MONO # 0.3 (0.1-0.6); MONO % 5.8 % (1.0-6.0); RBC 3.19 10^6/uL (3.5-6.1); RED CELL DISTRIBUTION WIDTH 15.2 % (11.5-14.5); WHITE BLOOD COUNT 5.7 10^3/uL (4.5-11.0)
[2018-05-06 07:01] LABS: ALB/GLOB RATIO 1.2 (1.1-1.8); ALBUMIN 3.7 g/dL (3.0-4.8); CALCIUM 9.6 mg/dL (8.4-10.5)
--- NOTE | 2018-05-06 07:37 | CP.PCM.PN ---
Subjective - Date & Time of Evaluation Date of Evaluation: 05/06/18 Time of Evaluation: 06:30 - Subjective Subjective: Lying in bed, Awake, alert, no distress Reason for consultation and follow up:Cardiac evaluation and follow up of history of coronary artery disease, post stent, admitted for cough and shortness of breath, history of cervical cancer with metastasis, post chemotherapy and radiation. Seen and examined by me and Dr. Oliva Objective - Vital Signs/Intake and Output Vital Signs (last 24 hours): Temp Pulse Resp BP Pulse Ox 98.5 F 98 H 20 127/77 94 L 05/05/18 17:14 05/05/18 17:14 05/05/18 17:14 05/05/18 17:14 05/05/18 17:14 Intake and Output: 05/06/18 05/06/18 06:59 18:59 Intake Total 1780 Output Total 1375 Balance 405 - Medications Medications: Current Medications Acetylcysteine (Acetylcysteine 20%) 4 ml IH [id number] [facility] Last Admin: 05/05/18 20:08 Dose: 4 ml Albuterol Sulfate (Albuterol 0.083% Inhal Viviane (2.5 Mg/3 Ml) Ud) 2.5 mg INH [id number] PRN PRN Reason: Shortness of Breath Last Admin: 05/02/18 16:50 Dose: 2.5 mg Amlodipine Besylate (Norvasc) 5 mg PO DAILY [facility] Last Admin: 05/05/18 09:21 Dose: 5 mg Arformoterol Tartrate (Brovana) 15 mcg IH [id number] [facility] Last Admin: 05/05/18 20:08 Dose: 15 mcg Ascorbic Acid (Vitamin C 500 Mg Tab) 1,000 mg PO DAILY [facility] Last Admin: 05/05/18 09:23 Dose: 1,000 mg Benzocaine/Menthol (Cepacol Sore Throat) 1 devante MT Q2H PRN PRN Reason: Sore Throat Last Admin: 05/05/18 17:24 Dose: 1 devante Benzonatate (Tessalon Perles) 100 mg PO TID [facility] Last Admin: 05/05/18 17:24 Dose: 100 mg Budesonide (Pulmicort Respules) 0.25 mg IH [id number] [facility] Last Admin: 05/05/18 20:08 Dose: 0.25 mg Camphor/Menthol (Bengay) 0.5 gm TOP QID PRN PRN Reason: Bladder Spasm Last Admin: 04/25/18 21:18 Dose: 0.5 gm Al Hydrox/Mg Hydrox/Simethicone 30 ml/Diphenhydramine HCl 75 mg/Lidocaine 30 ml 0 ml PO Q2H PRN PRN Reason: Mouth/Throat Pain Last Admin: 05/05/18 06:54 Dose: 1 shae Docusate Sodium (Colace) 100 mg PO BID [facility] Last Admin: 05/05/18 17:23 Dose: 100 mg Enoxaparin Sodium (Lovenox) 30 mg SC DAILY [facility]; Protocol Last Admin: 05/05/18 09:20 Dose: 30 mg Ergocalciferol (Drisdol 50,000 Intl Units Cap) 1 cap PO FRI [facility] Last Admin: 05/03/18 09:43 Dose: 1 cap Home Med (Home Med) 2 unit PO BID [facility] Last Admin: 05/05/18 17:23 Dose: 2 unit Loperamide HCl (Imodium) 2 mg PO Q8 PRN PRN Reason: diarrhea, loose stools Last Admin: 05/04/18 15:02 Dose: 2 mg Methylprednisolone (Solu-Medrol) 40 mg IVP Q12 [facility] Last Admin: 05/05/18 21:02 Dose: 40 mg Morphine Sulfate (Morphine) 2 mg IVP Q6H PRN PRN Reason: Pain, severe (8-10) Last Admin: 05/06/18 02:55 Dose: 2 mg Ondansetron HCl (Zofran Inj) 4 mg IVP Q6H PRN PRN Reason: Nausea/Vomiting Last Admin: 05/05/18 20:56 Dose: 4 mg Oxycodone/Acetaminophen (Percocet 2.5/325 Mg Tab) 1 tab PO Q4H PRN PRN Reason: Pain, moderate (4-7) Pantoprazole Sodium (Protonix Ec Tab) 40 mg PO 0600 [facility] Last Admin: 05/06/18 06:00 Dose: 40 mg Polyethylene Glycol (Miralax) 17 gm PO BID [facility] Last Admin: 05/05/18 17:24 Dose: 17 gm Pregabalin (Lyrica) 25 mg PO BID [facility] Last Admin: 05/05/18 17:24 Dose: 25 mg Promethazine HCl/Codeine (Phenergan/Codeine Oral Syrup) 5 ml PO Q6H PRN PRN Reason: Cough Last Admin: 05/05/18 11:12 Dose: 5 ml Saliva Substitute (Saliva Substitute) 0.5 ml PO QID [facility] Last Admin: 05/05/18 21:05 Dose: Not Given Sertraline HCl (Zoloft) 25 mg PO QAM [facility] Last Admin: 05/05/18 09:23 Dose: 25 mg Sucralfate (Carafate Oral Susp) 1 gm PO 0630,1130,1630,2200 [facility] Last Admin: 05/06/18 06:00 Dose: 1 gm - Labs Labs: 05/06/18 06:00 05/06/18 06:00 PT 12.2 SECONDS (9.4-12.5) 04/22/18 16:38 INR 1.07 04/22/18 16:38 APTT 30.8 Seconds (25.1-36.5) 04/22/18 16:38 - Constitutional Appears: Non-toxic, No Acute Distress - Head Exam Head Exam: NORMAL INSPECTION, NORMOCEPHALIC - Eye Exam Eye Exam: Normal appearance Pupil Exam: NORMAL ACCOMODATION - ENT Exam ENT Exam: Mucous Membranes Moist, Normal Exam - Respiratory Exam Respiratory Exam: Decreased Breath Sounds, NORMAL BREATHING PATTERN - Cardiovascular Exam Cardiovascular Exam: +S1, +S2 - GI/Abdominal Exam GI & Abdominal Exam: Soft, Normal Bowel Sounds - Extremities Exam Extremities Exam: Full ROM, Normal Capillary Refill - Neurological Exam Neurological Exam: Alert, Awake, Oriented x3 - Psychiatric Exam Psychiatric exam: Normal Affect, Normal Mood - Skin Skin Exam: Dry, Normal Color, Warm Assessment and Plan - Assessment and Plan (Free Text) Assessment: A 67 year old female who came in to the ER due to cough and shortness of breath. History of coronary artery disease, post stent, admitted for cough and shortness of breath, history of cervical cancer with metastasis, post chemotherapy and radiation, chronic renal insufficiency, bilateral nephrostomy,hydronephrosis, radiation cystitis, and psoriasis,depression, vesicovaginal fistula. Now metastasis to the lung with external compression of the bronchus.MUGA scan done LVEF 62%. Urinary tract infection, E.Coli in urine, completed antibiotics therapy, repeat urine culture, negative. Off antibiotics per ID. Seen by Dr. Black for possible SVC syndrome. Seen by Dr. Black for possible SVC syndrome. Completed antibiotic therapy for UTI, repeat cultures negative. Radiation therapy in progress until the .Cardiac status stable Plan: Cardiac status stable,no distress, in good spirit Heart rate controlled Blood pressure controlled Radiation therapy in progress till the On Norvasc 5 mg daily,Lovenox 30 mg daily, Solumedrol 40 mg daily Continue current treatment Continue current medications Will follow up Plan and treatment discussed with Dr. Oliva
[2018-05-06] MEDS: Arformoterol 15 mcg/2 ml Inh Sol IH SCH ×2 (07:46→20:15)
[2018-05-06] MEDS: Budesonide 0.25 mg/2 ml Inhal Susp UD IH SCH ×2 (07:46→20:15)
[2018-05-06] MEDS: Acetylcysteine 20% Inhal Soln (4ml) IH SCH ×3 (07:47→20:14)
[2018-05-06] MEDS: Aluminum Hydroxide/Magnesium 30 ML, DiphenhydrAMINE 75 MG, Lidocaine 2% Viscous 30 ML PO PRN (07:49)
[2018-05-06] MEDS: Promethazine/Cod 6.25mg-10mg/5ml Syr UD PO PRN ×2 (08:02→22:23)
--- NOTE | 2018-05-06 08:37 | PN ---
DATE: 05/03/2018 This is an addendum to Mrs. Kitchen's progress note. For Dr. Ford. The patient is a 67-year-old female. Seen sitting up in bed with her cough modestly improved. 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 The patient is having four radiation treatments remaining to be done. The patient has a crackling sensation crepitus noted at the lower neck with fullness appreciated since previous visits. The CT scan is now showing interval increase in size of the right lower neck lymphadenopathy since previous exam, mildly enlarged right upper neck level 2 lymph node, moderately to mildly severe narrowing of the upper airway to level of the nasal oropharynx and supraglottic region, interval increase in size of the soft tissue mass lesion to right mediastinum since prior study into the worsening of airspace opacities at the right upper lobe and right middle lobe since prior study. Differential consideration includes worsening lung metastasis versus superimposed infection, interval appearance of small right pleural effusion since prior exam, moderate to mildly severe narrowing of the right main bronchus and right upper lobe bronchus by the right mediastinal and right hilar mass. Possible occlusion or severe narrowing of the SVC should be considered. Consideration for superior vena cava syndrome is again considered with the patient now considered an unsafe discharge. We will continue present medical regimen with tapering steroids with her left arm port possibly occluded by tumor which is to be addressed by Dr. Bruce Black, Vascular Interventional. She also has significant anemic indices which will be monitored with social workers consulted for maximal assist once the patient is ready for discharge to home with the nurses and homemaker along with other ancillary services as she requires. The patient's sister is at the bedside who reports that she needs to return to home in [place] with the patient's sister to return if needed for sister care. This is a complex patient with a comprehensive medically necessary and appropriate visit carried out with the patient and her family members' questions answered to their satisfaction with discussion held with hospital personnel regarding need for the patient to continue to be monitored clinically in hospital due to the findings as above as it appears to be unsafe discharge at this time as she lives alone with possible deterioration of her condition. We will also monitor the patient's anemic indices that she has known history of having need for multiple transfusions in the past. This is an addendum to the progress note dictated by Dr. Villanueva earlier today with the above findings now known. Evaristo Saldivar MD
--- NOTE | 2018-05-06 09:21 | CP.PCM.PN ---
Subjective - Date & Time of Evaluation Date of Evaluation: 05/06/18 Time of Evaluation: 09:15 - Subjective Subjective: PGY-2 heme/onc progress note for Dr Ford No acute events noted. Port dye study today with Dr Bruce Black. Still c/o of odynophagia. Otherwise doing well - tolerating diet, no sob. Radiation is ongoing - last radiation on . Objective - Vital Signs/Intake and Output Vital Signs (last 24 hours): Temp Pulse Resp BP Pulse Ox 98.5 F 98 H 20 127/77 94 L 05/05/18 17:14 05/05/18 17:14 05/05/18 17:14 05/05/18 17:14 05/05/18 17:14 Intake and Output: 05/06/18 05/06/18 06:59 18:59 Intake Total 1780 Output Total 1375 Balance 405 - Medications Medications: Current Medications Acetylcysteine (Acetylcysteine 20%) 4 ml IH [id number] [facility] Last Admin: 05/06/18 07:47 Dose: Not Given Albuterol Sulfate (Albuterol 0.083% Inhal Viviane (2.5 Mg/3 Ml) Ud) 2.5 mg INH Q6 HRESP PRN PRN Reason: Shortness of Breath Last Admin: 05/02/18 16:50 Dose: 2.5 mg Amlodipine Besylate (Norvasc) 5 mg PO DAILY [facility] Last Admin: 05/05/18 09:21 Dose: 5 mg Arformoterol Tartrate (Brovana) 15 mcg IH [id number] [facility] Last Admin: 05/06/18 07:46 Dose: 15 mcg Ascorbic Acid (Vitamin C 500 Mg Tab) 1,000 mg PO DAILY [facility] Last Admin: 05/05/18 09:23 Dose: 1,000 mg Benzocaine/Menthol (Cepacol Sore Throat) 1 devante MT Q2H PRN PRN Reason: Sore Throat Last Admin: 05/05/18 17:24 Dose: 1 devante Benzonatate (Tessalon Perles) 100 mg PO TID [facility] Last Admin: 05/05/18 17:24 Dose: 100 mg Budesonide (Pulmicort Respules) 0.25 mg IH [id number] [facility] Last Admin: 05/06/18 07:46 Dose: 0.25 mg Camphor/Menthol (Bengay) 0.5 gm TOP QID PRN PRN Reason: Bladder Spasm Last Admin: 04/25/18 21:18 Dose: 0.5 gm Al Hydrox/Mg Hydrox/Simethicone 30 ml/Diphenhydramine HCl 75 mg/Lidocaine 30 ml 0 ml PO Q2H PRN PRN Reason: Mouth/Throat Pain Last Admin: 05/06/18 07:49 Dose: 1 shae Docusate Sodium (Colace) 100 mg PO BID [facility] Last Admin: 05/05/18 17:23 Dose: 100 mg Enoxaparin Sodium (Lovenox) 30 mg SC DAILY [facility]; Protocol Last Admin: 05/05/18 09:20 Dose: 30 mg Ergocalciferol (Drisdol 50,000 Intl Units Cap) 1 cap PO FRI [facility] Last Admin: 05/03/18 09:43 Dose: 1 cap Home Med (Home Med) 2 unit PO BID [facility] Last Admin: 05/05/18 17:23 Dose: 2 unit Loperamide HCl (Imodium) 2 mg PO Q8 PRN PRN Reason: diarrhea, loose stools Last Admin: 05/04/18 15:02 Dose: 2 mg Methylprednisolone (Solu-Medrol) 40 mg IVP Q12 [facility] Last Admin: 05/05/18 21:02 Dose: 40 mg Morphine Sulfate (Morphine) 2 mg IVP Q6H PRN PRN Reason: Pain, severe (8-10) Last Admin: 05/06/18 02:55 Dose: 2 mg Ondansetron HCl (Zofran Inj) 4 mg IVP Q6H PRN PRN Reason: Nausea/Vomiting Last Admin: 05/05/18 20:56 Dose: 4 mg Oxycodone/Acetaminophen (Percocet 2.5/325 Mg Tab) 1 tab PO Q4H PRN PRN Reason: Pain, moderate (4-7) Pantoprazole Sodium (Protonix Ec Tab) 40 mg PO 0600 [facility] Last Admin: 05/06/18 06:00 Dose: 40 mg Polyethylene Glycol (Miralax) 17 gm PO BID [facility] Last Admin: 05/05/18 17:24 Dose: 17 gm Pregabalin (Lyrica) 25 mg PO BID [facility] Last Admin: 05/05/18 17:24 Dose: 25 mg Promethazine HCl/Codeine (Phenergan/Codeine Oral Syrup) 5 ml PO Q6H PRN PRN Reason: Cough Last Admin: 05/06/18 08:02 Dose: 5 ml Saliva Substitute (Saliva Substitute) 0.5 ml PO QID [facility] Last Admin: 05/05/18 21:05 Dose: Not Given Sertraline HCl (Zoloft) 25 mg PO QAM [facility] Last Admin: 05/05/18 09:23 Dose: 25 mg Sucralfate (Carafate Oral Susp) 1 gm PO 0630,1130,1630,2200 [facility] Last Admin: 05/06/18 06:00 Dose: 1 gm - Labs Labs: 05/06/18 06:00 05/06/18 06:00 PT 12.2 SECONDS (9.4-12.5) 04/22/18 16:38 INR 1.07 04/22/18 16:38 APTT 30.8 Seconds (25.1-36.5) 04/22/18 16:38 - Additional Findings Additional findings: - Constitutional Appears: Well, Non-toxic, No Acute Distress - Head Exam Head Exam: ATRAUMATIC, NORMAL INSPECTION - Eye Exam Eye Exam: EOMI, Normal appearance, PERRL. absent: Scleral icterus - ENT Exam ENT Exam: Mucous Membranes Moist - Respiratory Exam Respiratory Exam: Clear to Auscultation Bilateral, NORMAL BREATHING PATTERN. absent: Wheezes - Cardiovascular Exam Cardiovascular Exam: REGULAR RHYTHM, +S1, +S2, external jugular vein distended absent: JVD - GI/Abdominal Exam GI & Abdominal Exam: Normal Bowel Sounds, Soft. absent: Tenderness - Extremities Exam Extremities exam: Positive for: normal inspection - Neurological Exam Neurological exam: Alert, Oriented x3 - Psychiatric Exam Psychiatric exam: Normal Affect, Normal Mood - Skin Skin Exam: Intact, Normal Color, Warm Assessment and Plan - Assessment and Plan (Free Text) Plan: Ms Kitchen is a 67 year old female with history of stage III cervical cancer status post chemoradiation, CAD status post stent, CRI, h/o nephrostomy tubes, radiation cystitis, psoriasis, and depression who was admitted for dyspnea on exertion and cough: stage IV cervical carcinoma cancer w/ mets to lung -patient began radiation 04/25/[address] Aguiar - expected length to be approx 2 weeks - last radiation 05/08/18 -after radiation likely chemo -percocet 1 tab po q6h prn -pregabalin 25mg po bid -continue radiation and ten assess for systemic treatments with Avastin based complications and anthracycline -port was evaluated 05/06 via dye study with Dr Bruce Black - tip of the port concludes between proximal and distal SVC, the tip is abutting the SVC wall and acting as a one-way valve, the port is functional for administration of medications/chemo however drawing blood is not possible given the tip is touching the SVC wall Possible SVC Syndrome -external jugular distended -we will discuss with Dr Reis about possibility of SVC syndrom -increasing venous pressure from tumor burden in mediastium could be causing early SVC syndrome -Dr Bruce Black evaluated patient and stated there is concern about tumor encapsulating SVC - Dr Black will order a dye study to further evaluate this issue. -CT neck and chest w/o contrast 05/02: * Interval increase in the size of the right lower neck lymphadenopathy since the previous exam. Mildly enlarged right upper neck level 2 lymph node. Moderate to mildly severe narrowing of the upper airway at the level of the nasal oral pharynx and supraglottic region. Interval increase in the size of the soft tissue mass lesion at right mediastinum since the prior study. Interval worsening of airspace opacities at the right upper lobe and right middle lobe since the prior study. The differential consideration includes worsening lung metastasis versus superimposed infection. Interval appearance of small right pleural effusion since the prior exam. Moderate to mildly severe narrowing of the right main bronchus and right upper lobe bronchus by the right mediastinal and right hilar mass. The possibility of occlusion or severe narrowing of the SVC should be considered. Odynophagia -ENT Dr Topete consulted - however patient did not want to see Dr Mcmahan (who works with Dr Topete) -GI consulted, Dr Sumner -magic mouthwash 5ml 20 minutes ACHS -may need evaluation with barium swallow, upper endoscopy if symptoms continue to worsen Left Chest Rash -Likely radiation related -start hydrocortisone cream 1% to affected area bid Cough/CASTANON, Improved -negative for flu swab, normal wbc, afebrile -empiric coverage with augmentin po q12 (started 04/25/18) and levaquin 250mg po qd (started 04/25/18) * augmentin and levaquin both discontinued, zosyn started 04/26/18 also now discontinued; currently on no abx -tessalon perles 100mg po tid, phenergan 5ml po q6h prn -brovana 15mcg ih q12h, budesonide 0.25mg ih q12h, solumedrol 20mg ivp q12h Complicated UTI with E. coli and E. faecalis with right sided nephrostomy tube, Resolved -ua + for leukocyte esterase and nitrates -empiric coverage with augmentin po q12 (started 04/25/18) and levaquin 250mg po qd (started 04/25/18), zosyn started 04/26/18 also now discontinued; currently on no abx -complete total 5-7 day course of Zosyn for E. coli and E. 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
[2018-05-06] MEDS: MethylPREDNISolone 40 mg Vial IVP SCH ×2 (09:38→22:25)
[2018-05-06] MEDS: TRANEXAMIC ACID 650 MG PO SCH ×2 (09:38→17:28)
[2018-05-06] MEDS: Enoxaparin 30 mg Syringe SC SCH (09:38)
[2018-05-06] MEDS: Saliva Substitute 44.3 ML PO SCH ×4 (09:45→22:24)
[2018-05-06] MEDS: POLYETHYLENE GLYCOL 3350 17 GM/Dose PACKET PO SCH ×2 (10:23→17:29)
[2018-05-06] MEDS ORDERED: Iodixanol 320 mg/ml 150 ml Bottle IV ONE (12:42)
--- NOTE | 2018-05-06 13:35 | PN ---
DATE: 05/06/2018 PULMONARY PROGRESS NOTE REFERRING PHYSICIAN: Dr. Evaristo Saldivar. SUBJECTIVE: The patient is sitting up in bed. No overnight events reported. No acute distress noted. The patient still continues to complain of odynophagia, has last radiation date on 05/08/2018. The patient is scheduled for port replacement today. Reports still having some shortness of breath and cough on occasion. No headache, rhinitis, chest pain, abdominal pain, nausea, vomiting, diarrhea, leg pain or leg swelling reported. OBJECTIVE: GENERAL: No acute distress. VITAL SIGNS: Blood pressure 125/83, pulse 91, temperature 98.5, and oxygen saturation 94% on room air. HEENT: Moist mucous membranes. Crowded airway. Still has linear, flat, reddened areas to left breast and chest. NECK: Supple. No JVD. LUNGS: Fair airflow bilaterally. CARDIOVASCULAR: S1 and S2 audible. ABDOMEN: Soft and nontender. No distension. No organomegaly. EXTREMITIES: No bilateral lower extremity edema. NEUROLOGIC: Awake, alert, and verbal. Follows commands. MEDICATIONS: Reviewed. Mucomyst 4 mL every 6 hours, albuterol 2.5 mg every 6 hours p.r.n., Norvasc 5 mg p.o. daily, Brovana 15 mcg every 12 hours, vitamin C 1000 mg daily, Cepacol throat lozenges every 2 hours p.r.n., Tessalon Perles 100 mg three times a day, Pulmicort 0.25 mg every 12 hours, Bengay topically four times a day p.r.n, Colace 100 mg twice a day, Lovenox 30 mg subcutaneous daily, ergocalciferol 50,000 units every Sunday, Imodium 2 mg every 8 hours p.r.n., Solu-Medrol 40 mg every 12 hours, morphine sulfate 2 mg every 6 hours p.r.n., Zofran 4 mg every 6 hours p.r.n., Percocet 2.5/325 mg one tab every 4 hours p.r.n. for moderate pain, Protonix 40 mg daily, MiraLax 17 g twice a day, Lyrica 25 mg twice a day, Phenergan with codeine 5 mL every 6 hours p.r.n., saliva substitute 0.5 mL four times a day, Zoloft 25 mg in the morning and Carafate 1 g four times a day. LABORATORY DATA: Reviewed. WBC 5.7, RBC 3.19, hemoglobin 9.3, hematocrit 29.7, and platelets 276. Sodium 139, potassium 4.0, chloride 104, carbon dioxide 28, anion gap 11, BUN 33, creatinine 1.6, GFR 32, random glucose 108, calcium 9.6, total bilirubin 0.2, AST 34, ALT 20, alkaline phosphatase 85, total protein 6.9, albumin 3.7, globulin 3.2, and albumin-globulin ratio 1.2. IMPRESSION AND PLAN: Metastatic cervical cancer with metastases to the lung causing external compression to bronchus, history of renal failure requiring bilateral nephrostomy drainage, coronary artery disease, history of coronary stents, bronchitis, obstructive sleep apnea syndrome, pulmonary hypertension, and history of Watkins's esophagus. Continue inhaled bronchodilators, gastric prophylaxis, deep venous thrombosis prophylaxis, sleep apnea precaution, and head of bed elevated at 45 degrees. The patient continues to refuse to use continuous positive airway pressure machine. The patient is scheduled for port placement today; currently undergoing radiation therapy. The patient will need full pulmonary function test as outpatient. Seen and examined with Dr. Reis. Discussed assessment and plan as described above. Thank you for this consult. We will follow with you. Hira Adame APN Debby Reis MD
[2018-05-06] MEDS: Hydrocortisone 1% Cream (30 GM) TOP SCH (17:31)
--- NOTE | 2018-05-06 20:28 | VASCULAR ---
Date of service: 05/06/2018 PROCEDURE: Left upper arm Port-A-Cath check HISTORY: Metastatic cervical CA. Left upper extremity port for greater than 7 years. Large metastasis obstructing the superior vena cava COMPARISON: TECHNIQUE: Fluoroscopy of the patient's left upper extremity port was performed. No evidence of fracture or separation is seen. The tip of the catheter was well position. Contrast was injected. No extravasation is seen. Contrast flows readily from the tip of the catheter which is in the proximal SVC. FINDINGS: IMPRESSION: Left upper extremity port with its tip in the proximal SVC. The catheter can be used for infusion. It will not aspirate. Removing and replacing the port would be very difficult given the extensive mediastinal mass obstructing the SVC
[2018-05-07] MEDS: Acetylcysteine 20% Inhal Soln (4ml) IH SCH ×2 (01:40→08:34)
[2018-05-07] MEDS: Pantoprazole 40 mg EC Tab PO SCH (05:47)
[2018-05-07] MEDS: Promethazine/Cod 6.25mg-10mg/5ml Syr UD PO PRN ×2 (05:47→16:23)
[2018-05-07 06:29] LABS: HEMOGLOBIN 9.3 g/dL (12.0-16.0); LYMPH # 0.3 (1.2-3.4); LYMPH % 5.5 % (22.0-35.0); MEAN CELL VOLUME 92.8 fl (80.0-105.0); MEAN CORPUSCULAR HEMOGLOBIN 29.1 pg (25.0-35.0); MEAN CORPUSCULAR HGB CONC 31.3 g/dl (31.0-37.0); MEAN PLATELET VOLUME 9.4 fl (7.0-11.0); MONO # 0.3 (0.1-0.6); MONO % 5.1 % (1.0-6.0); RBC 3.2 10^6/uL (3.5-6.1); RED CELL DISTRIBUTION WIDTH 15.4 % (11.5-14.5); WHITE BLOOD COUNT 5.1 10^3/uL (4.5-11.0)
[2018-05-07] MEDS: Sucralfate 1 gm/10 ml Oral Susp UD PO SCH ×4 (07:02→22:49)
[2018-05-07 07:03] LABS: ALB/GLOB RATIO 1.1 (1.1-1.8); ALBUMIN 3.7 g/dL (3.0-4.8); CALCIUM 9.5 mg/dL (8.4-10.5)
[2018-05-07] MEDS: Morphine 2 mg/ml ISec IVP PRN ×2 (07:03→15:39)
--- NOTE | 2018-05-07 07:34 | CP.PCM.PN ---
Subjective - Date & Time of Evaluation Date of Evaluation: 05/07/18 Time of Evaluation: 06:35 - Subjective Subjective: Sitting in bed, Awake, alert, no distress Reason for consultation and follow up:Cardiac evaluation and follow up of history of coronary artery disease, post stent, admitted for cough and shortness of breath, history of cervical cancer with metastasis, post chemotherapy and radiation. Seen and examined by me and Dr. Oliva Objective - Vital Signs/Intake and Output Vital Signs (last 24 hours): Temp Pulse Resp BP Pulse Ox 97.9 F 90 20 128/85 98 05/06/18 16:17 05/06/18 16:17 05/06/18 16:17 05/06/18 16:17 05/06/18 16:17 Intake and Output: 05/07/18 05/07/18 06:59 18:59 Intake Total 2040 360 Output Total 600 875 Balance 1440 -515 - Medications Medications: Current Medications Acetylcysteine (Acetylcysteine 20%) 4 ml IH [id number] [facility] Last Admin: 05/07/18 01:40 Dose: Not Given Albuterol Sulfate (Albuterol 0.083% Inhal Viviane (2.5 Mg/3 Ml) Ud) 2.5 mg INH [id number] PRN PRN Reason: Shortness of Breath Last Admin: 05/02/18 16:50 Dose: 2.5 mg Amlodipine Besylate (Norvasc) 5 mg PO DAILY [facility] Last Admin: 05/06/18 09:39 Dose: 5 mg Arformoterol Tartrate (Brovana) 15 mcg IH [id number] [facility] Last Admin: 05/06/18 20:15 Dose: 15 mcg Ascorbic Acid (Vitamin C 500 Mg Tab) 1,000 mg PO DAILY [facility] Last Admin: 05/06/18 09:38 Dose: 1,000 mg Benzocaine/Menthol (Cepacol Sore Throat) 1 devante MT Q2H PRN PRN Reason: Sore Throat Last Admin: 05/05/18 17:24 Dose: 1 devante Benzonatate (Tessalon Perles) 100 mg PO TID [facility] Last Admin: 05/06/18 17:29 Dose: 100 mg Budesonide (Pulmicort Respules) 0.25 mg IH [id number] [facility] Last Admin: 05/06/18 20:15 Dose: 0.25 mg Camphor/Menthol (Bengay) 0.5 gm TOP QID PRN PRN Reason: Bladder Spasm Last Admin: 04/25/18 21:18 Dose: 0.5 gm Clotrimazole (Mycelex Dax) 10 mg MT 5XD [facility] Last Admin: 05/07/18 05:47 Dose: 10 mg Al Hydrox/Mg Hydrox/Simethicone 30 ml/Diphenhydramine HCl 75 mg/Lidocaine 30 ml 0 ml PO Q2H PRN PRN Reason: Mouth/Throat Pain Last Admin: 05/06/18 07:49 Dose: 1 shae Docusate Sodium (Colace) 100 mg PO BID [facility] Last Admin: 05/06/18 17:29 Dose: Not Given Enoxaparin Sodium (Lovenox) 30 mg SC DAILY [facility]; Protocol Last Admin: 05/06/18 09:38 Dose: 30 mg Ergocalciferol (Drisdol 50,000 Intl Units Cap) 1 cap PO FRI [facility] Last Admin: 05/03/18 09:43 Dose: 1 cap Home Med (Home Med) 2 unit PO BID [facility] Last Admin: 05/06/18 17:28 Dose: 2 unit Hydrocortisone (Cortizone 1% Cream) 0 gm TOP BID [facility] Last Admin: 05/06/18 17:31 Dose: 1 applic Loperamide HCl (Imodium) 2 mg PO Q8 PRN PRN Reason: diarrhea, loose stools Last Admin: 05/04/18 15:02 Dose: 2 mg Methylprednisolone (Solu-Medrol) 20 mg IVP Q12 [facility] Last Admin: 05/06/18 22:25 Dose: 20 mg Morphine Sulfate (Morphine) 2 mg IVP Q4H PRN PRN Reason: Pain, severe (8-10) Last Admin: 05/07/18 07:03 Dose: 2 mg Ondansetron HCl (Zofran Inj) 4 mg IVP Q6H PRN PRN Reason: Nausea/Vomiting Last Admin: 05/05/18 20:56 Dose: 4 mg Oxycodone/Acetaminophen (Percocet 2.5/325 Mg Tab) 1 tab PO Q4H PRN PRN Reason: Pain, moderate (4-7) Pantoprazole Sodium (Protonix Ec Tab) 40 mg PO 0600 [facility] Last Admin: 05/07/18 05:47 Dose: 40 mg Polyethylene Glycol (Miralax) 17 gm PO BID [facility] Last Admin: 05/06/18 17:29 Dose: Not Given Pregabalin (Lyrica) 25 mg PO BID [facility] Last Admin: 05/06/18 17:28 Dose: 25 mg Promethazine HCl/Codeine (Phenergan/Codeine Oral Syrup) 5 ml PO Q6H PRN PRN Reason: Cough Last Admin: 05/07/18 05:47 Dose: 5 ml Saliva Substitute (Saliva Substitute) 0.5 ml PO QID [facility] Last Admin: 05/06/18 22:24 Dose: 0.5 ml Sertraline HCl (Zoloft) 25 mg PO QAM [facility] Last Admin: 05/06/18 09:38 Dose: 25 mg Sucralfate (Carafate Oral Susp) 1 gm PO 0630,1130,1630,2200 [facility] Last Admin: 05/07/18 07:02 Dose: 1 gm - Labs Labs: 05/07/18 06:00 05/07/18 06:00 PT 12.2 SECONDS (9.4-12.5) 04/22/18 16:38 INR 1.07 04/22/18 16:38 APTT 30.8 Seconds (25.1-36.5) 04/22/18 16:38 - Constitutional Appears: Non-toxic, No Acute Distress - Head Exam Head Exam: NORMAL INSPECTION, NORMOCEPHALIC - Eye Exam Eye Exam: Normal appearance Pupil Exam: NORMAL ACCOMODATION - ENT Exam ENT Exam: Mucous Membranes Moist, Normal Exam - Respiratory Exam Respiratory Exam: Decreased Breath Sounds, NORMAL BREATHING PATTERN - Cardiovascular Exam Cardiovascular Exam: +S1, +S2 - GI/Abdominal Exam GI & Abdominal Exam: Soft, Normal Bowel Sounds - Extremities Exam Extremities Exam: Full ROM, Normal Capillary Refill - Neurological Exam Neurological Exam: Alert, Awake, Oriented x3 - Psychiatric Exam Psychiatric exam: Normal Affect, Normal Mood - Skin Skin Exam: Dry, Normal Color, Warm Assessment and Plan - Assessment and Plan (Free Text) Assessment: A 67 year old female who came in to the ER due to cough and shortness of breath. History of coronary artery disease, post stent, admitted for cough and shortness of breath, history of cervical cancer with metastasis, post chemotherapy and radiation, chronic renal insufficiency, bilateral nephrostomy,hydronephrosis, radiation cystitis, and psoriasis,depression, vesicovaginal fistula. Now metastasis to the lung with external compression of the bronchus.MUGA scan done LVEF 62%. Urinary tract infection, E.Coli in urine, completed antibiotics therapy, repeat urine culture, negative. Off antibiotics per ID. Seen by Dr. Black for possible SVC syndrome. Completed antibiotic therapy for UTI, repeat cultures negative. Radiation therapy in progress until the . Cardiac status stable. dryness on skin especially chest. Plan: Complaining of skin dryness Hydrocortisone cream No distress Cardiac status stable Heart rate controlled Blood pressure controlled Radiation therapy in progress till the On Norvasc 5 mg daily,Lovenox 30 mg daily, Solumedrol 40 mg daily Continue current treatment Continue current medications Will follow up Plan and treatment discussed with Dr. Oliva
[2018-05-07] MEDS: Budesonide 0.25 mg/2 ml Inhal Susp UD IH SCH ×2 (07:40→19:00)
[2018-05-07] MEDS: Arformoterol 15 mcg/2 ml Inh Sol IH SCH ×2 (07:40→19:00)
--- NOTE | 2018-05-07 08:40 | CP.PCM.PN ---
Subjective - Date & Time of Evaluation Date of Evaluation: 05/07/18 Time of Evaluation: 08:30 - Subjective Subjective: Ms Kitchen is a 67 year old female with metastatic cervical cancer. She is currently getting palliative radiation to the mediastinum. We noticed yesterday that she has a pruritic, patchy rash involving the left breast, chest, shoulder, back and upper neck. The appearance of the rash is unusual. She also has left breast swelling. Her cheeks appeared flushed. She also had changes in her voice which was new since we last saw her. Unfortunately, this is not related to the radiation as this rash extends beyond the field of the radiation. The rash also has an atypical appearance. Also, the etiology of her hoarseness is not secondary to her treatment since the radiation does not involve the larynx. As per a note from Dr Ford's resident, she is getting hydrocortisone for itchiness. However, it was not correct when the resident remarked that the rash is due to the radiation. One possible etiology of swelling/skin flushing as well as changes in her voice could be disease progression on radiation. She is reportedly scheduled to start systemic therapy after the radiation. She finishes radiation treatment tomorrow. Objective - Vital Signs/Intake and Output Vital Signs (last 24 hours): Temp Pulse Resp BP Pulse Ox 97.9 F 90 20 128/85 98 05/06/18 16:17 05/06/18 16:17 05/06/18 16:17 05/06/18 16:17 05/06/18 16:17 Intake and Output: 05/07/18 05/07/18 06:59 18:59 Intake Total 2040 360 Output Total 600 875 Balance 1440 -515 - Medications Medications: Current Medications Acetylcysteine (Acetylcysteine 20%) 4 ml IH [id number] [facility] Last Admin: 05/07/18 01:40 Dose: Not Given Albuterol Sulfate (Albuterol 0.083% Inhal Viviane (2.5 Mg/3 Ml) Ud) 2.5 mg INH [id number] PRN PRN Reason: Shortness of Breath Last Admin: 05/02/18 16:50 Dose: 2.5 mg Amlodipine Besylate (Norvasc) 5 mg PO DAILY [facility] Last Admin: 05/06/18 09:39 Dose: 5 mg Arformoterol Tartrate (Brovana) 15 mcg IH [id number] [facility] Last Admin: 05/06/18 20:15 Dose: 15 mcg Ascorbic Acid (Vitamin C 500 Mg Tab) 1,000 mg PO DAILY [facility] Last Admin: 05/06/18 09:38 Dose: 1,000 mg Benzocaine/Menthol (Cepacol Sore Throat) 1 devante MT Q2H PRN PRN Reason: Sore Throat Last Admin: 05/05/18 17:24 Dose: 1 devante Benzonatate (Tessalon Perles) 100 mg PO TID [facility] Last Admin: 05/06/18 17:29 Dose: 100 mg Budesonide (Pulmicort Respules) 0.25 mg IH [id number] [facility] Last Admin: 05/06/18 20:15 Dose: 0.25 mg Camphor/Menthol (Bengay) 0.5 gm TOP QID PRN PRN Reason: Bladder Spasm Last Admin: 04/25/18 21:18 Dose: 0.5 gm Clotrimazole (Mycelex Dax) 10 mg MT 5XD [facility] Last Admin: 05/07/18 05:47 Dose: 10 mg Al Hydrox/Mg Hydrox/Simethicone 30 ml/Diphenhydramine HCl 75 mg/Lidocaine 30 ml 0 ml PO Q2H PRN PRN Reason: Mouth/Throat Pain Last Admin: 05/06/18 07:49 Dose: 1 shae Docusate Sodium (Colace) 100 mg PO BID [facility] Last Admin: 05/06/18 17:29 Dose: Not Given Enoxaparin Sodium (Lovenox) 30 mg SC DAILY [facility]; Protocol Last Admin: 05/06/18 09:38 Dose: 30 mg Ergocalciferol (Drisdol 50,000 Intl Units Cap) 1 cap PO FRI [facility] Last Admin: 05/03/18 09:43 Dose: 1 cap Home Med (Home Med) 2 unit PO BID [facility] Last Admin: 05/06/18 17:28 Dose: 2 unit Hydrocortisone (Cortizone 1% Cream) 0 gm TOP BID [facility] Last Admin: 05/06/18 17:31 Dose: 1 applic Loperamide HCl (Imodium) 2 mg PO Q8 PRN PRN Reason: diarrhea, loose stools Last Admin: 05/04/18 15:02 Dose: 2 mg Methylprednisolone (Solu-Medrol) 20 mg IVP Q12 [facility] Last Admin: 05/06/18 22:25 Dose: 20 mg Morphine Sulfate (Morphine) 2 mg IVP Q4H PRN PRN Reason: Pain, severe (8-10) Last Admin: 05/07/18 07:03 Dose: 2 mg Ondansetron HCl (Zofran Inj) 4 mg IVP Q6H PRN PRN Reason: Nausea/Vomiting Last Admin: 05/05/18 20:56 Dose: 4 mg Oxycodone/Acetaminophen (Percocet 2.5/325 Mg Tab) 1 tab PO Q4H PRN PRN Reason: Pain, moderate (4-7) Pantoprazole Sodium (Protonix Ec Tab) 40 mg PO 0600 [facility] Last Admin: 05/07/18 05:47 Dose: 40 mg Polyethylene Glycol (Miralax) 17 gm PO BID [facility] Last Admin: 05/06/18 17:29 Dose: Not Given Pregabalin (Lyrica) 25 mg PO BID [facility] Last Admin: 05/06/18 17:28 Dose: 25 mg Promethazine HCl/Codeine (Phenergan/Codeine Oral Syrup) 5 ml PO Q6H PRN PRN Reason: Cough Last Admin: 05/07/18 05:47 Dose: 5 ml Saliva Substitute (Saliva Substitute) 0.5 ml PO QID [facility] Last Admin: 05/06/18 22:24 Dose: 0.5 ml Sertraline HCl (Zoloft) 25 mg PO QAM [facility] Last Admin: 05/06/18 09:38 Dose: 25 mg Sucralfate (Carafate Oral Susp) 1 gm PO 0630,1130,1630,2200 [facility] Last Admin: 05/07/18 07:02 Dose: 1 gm - Labs Labs: 05/07/18 06:00 05/07/18 06:00 PT 12.2 SECONDS (9.4-12.5) 04/22/18 16:38 INR 1.07 04/22/18 16:38 APTT 30.8 Seconds (25.1-36.5) 04/22/18 16:38
[2018-05-07] MEDS: MethylPREDNISolone 40 mg Vial IVP SCH ×2 (09:38→21:07)
[2018-05-07] MEDS: Enoxaparin 30 mg Syringe SC SCH (09:39)
[2018-05-07] MEDS: TRANEXAMIC ACID 650 MG PO SCH ×2 (09:39→17:08)
[2018-05-07] MEDS: POLYETHYLENE GLYCOL 3350 17 GM/Dose PACKET PO SCH ×2 (09:40→17:11)
[2018-05-07] MEDS: Hydrocortisone 1% Cream (30 GM) TOP SCH ×2 (09:40→17:08)
[2018-05-07] MEDS: Saliva Substitute 44.3 ML PO SCH ×4 (09:40→21:06)
--- NOTE | 2018-05-07 10:43 | CP.PCM.PN ---
Subjective - Date & Time of Evaluation Date of Evaluation: 05/07/18 Time of Evaluation: 08:45 - Subjective Subjective: Comfortable in bed, no fevers, has some sore throat but relieved by fluid intake, no nausea or diarrhea. Objective - Vital Signs/Intake and Output Vital Signs (last 24 hours): Temp Pulse Resp BP Pulse Ox 97.9 F 91 H 20 120/76 98 05/06/18 16:17 05/07/18 09:40 05/06/18 16:17 05/07/18 09:40 05/06/18 16:17 Intake and Output: 05/07/18 05/07/18 06:59 18:59 Intake Total 2040 360 Output Total 600 875 Balance 1440 -515 - Medications Medications: Current Medications Albuterol Sulfate (Albuterol 0.083% Inhal Viviane (2.5 Mg/3 Ml) Ud) 2.5 mg INH [id number] PRN PRN Reason: Shortness of Breath Last Admin: 05/02/18 16:50 Dose: 2.5 mg Amlodipine Besylate (Norvasc) 5 mg PO DAILY [facility] Last Admin: 05/07/18 09:40 Dose: 5 mg Arformoterol Tartrate (Brovana) 15 mcg IH [id number] [facility] Last Admin: 05/07/18 07:40 Dose: 15 mcg Ascorbic Acid (Vitamin C 500 Mg Tab) 1,000 mg PO DAILY [facility] Last Admin: 05/07/18 09:39 Dose: 1,000 mg Benzocaine/Menthol (Cepacol Sore Throat) 1 devante MT Q2H PRN PRN Reason: Sore Throat Last Admin: 05/05/18 17:24 Dose: 1 devante Benzonatate (Tessalon Perles) 100 mg PO TID [facility] Last Admin: 05/07/18 09:39 Dose: 100 mg Budesonide (Pulmicort Respules) 0.25 mg IH [id number] [facility] Last Admin: 05/07/18 07:40 Dose: 0.25 mg Camphor/Menthol (Bengay) 0.5 gm TOP QID PRN PRN Reason: Bladder Spasm Last Admin: 04/25/18 21:18 Dose: 0.5 gm Clotrimazole (Mycelex Dax) 10 mg MT 5XD [facility] Last Admin: 05/07/18 09:39 Dose: 10 mg Al Hydrox/Mg Hydrox/Simethicone 30 ml/Diphenhydramine HCl 75 mg/Lidocaine 30 ml 0 ml PO Q2H PRN PRN Reason: Mouth/Throat Pain Last Admin: 05/06/18 07:49 Dose: 1 shae Docusate Sodium (Colace) 100 mg PO BID [facility] Last Admin: 05/07/18 09:39 Dose: Not Given Enoxaparin Sodium (Lovenox) 30 mg SC DAILY [facility]; Protocol Last Admin: 05/07/18 09:39 Dose: 30 mg Ergocalciferol (Drisdol 50,000 Intl Units Cap) 1 cap PO FRI [facility] Last Admin: 05/03/18 09:43 Dose: 1 cap Guaifenesin/Dextromethorphan (Mucinex-Dm 600-30 Mg) 1 tab PO BID [facility] Home Med (Home Med) 2 unit PO BID [facility] Last Admin: 05/07/18 09:39 Dose: 2 unit Hydrocortisone (Cortizone 1% Cream) 0 gm TOP BID [facility] Last Admin: 05/07/18 09:40 Dose: 1 applic Loperamide HCl (Imodium) 2 mg PO Q8 PRN PRN Reason: diarrhea, loose stools Last Admin: 05/04/18 15:02 Dose: 2 mg Methylprednisolone (Solu-Medrol) 20 mg IVP Q12 [facility] Last Admin: 05/07/18 09:38 Dose: 20 mg Morphine Sulfate (Morphine) 2 mg IVP Q4H PRN PRN Reason: Pain, severe (8-10) Last Admin: 05/07/18 07:03 Dose: 2 mg Ondansetron HCl (Zofran Inj) 4 mg IVP Q6H PRN PRN Reason: Nausea/Vomiting Last Admin: 05/05/18 20:56 Dose: 4 mg Oxycodone/Acetaminophen (Percocet 2.5/325 Mg Tab) 1 tab PO Q4H PRN PRN Reason: Pain, moderate (4-7) Pantoprazole Sodium (Protonix Ec Tab) 40 mg PO 0600 [facility] Last Admin: 05/07/18 05:47 Dose: 40 mg Polyethylene Glycol (Miralax) 17 gm PO BID [facility] Last Admin: 05/07/18 09:40 Dose: Not Given Pregabalin (Lyrica) 25 mg PO BID [facility] Last Admin: 05/07/18 09:39 Dose: 25 mg Promethazine HCl/Codeine (Phenergan/Codeine Oral Syrup) 5 ml PO Q6H PRN PRN Reason: Cough Last Admin: 05/07/18 05:47 Dose: 5 ml Saliva Substitute (Saliva Substitute) 0.5 ml PO QID [facility] Last Admin: 05/07/18 09:40 Dose: 0.5 ml Sertraline HCl (Zoloft) 25 mg PO QAM [facility] Last Admin: 05/07/18 09:39 Dose: 25 mg Sucralfate (Carafate Oral Susp) 1 gm PO 0630,1130,1630,2200 [facility] Last Admin: 05/07/18 07:02 Dose: 1 gm - Labs Labs: 05/07/18 06:00 05/07/18 06:00 PT 12.2 SECONDS (9.4-12.5) 04/22/18 16:38 INR 1.07 04/22/18 16:38 APTT 30.8 Seconds (25.1-36.5) 04/22/18 16:38 - Constitutional Appears: Chronically Ill - Head Exam Head Exam: NORMAL INSPECTION - Neck Exam Neck Exam: absent: Meningismus - Respiratory Exam Respiratory Exam: Decreased Breath Sounds - Cardiovascular Exam Cardiovascular Exam: +S1, +S2 - GI/Abdominal Exam GI & Abdominal Exam: Soft. absent: Tenderness Assessment and Plan - Assessment and Plan (Free Text) Plan: Assessment S/P complicated UTI with E. coli and E. faecalis, in this patient with indwe lling right sided nephrostomy tube presenting with hematuria - repeat urine cx negative history of Urinary tract infection with Klebsiella oxytoca history of pseudomonas, Klebsiella and Enterococcus faecalis UTI enterococcus and pseudomonas UTI in the past cervical cancer S/P chemotherapy and radiation therapy with history or radiation cystitis history of transient ischemic attack GERD coronary artery disease sleep apnea history of psoriasis history of diverticulitis history of depression chronic renal failure S/P nephrostomy tube placement Plan completed course of Zosyn, repeat urine cx are negative, monitor off antibiotics since she is at risk for hospital-acquired infections will have outpatient follow up with Dr. Ford
--- NOTE | 2018-05-07 10:46 | CP.PCM.PN ---
Subjective - Date & Time of Evaluation Date of Evaluation: 05/07/18 Time of Evaluation: 10:34 - Subjective Subjective: PGY-2 heme/onc progress note for Dr Ford No acute events noted overnight. Patient complains of throat pain - required morphine to resolve her pain at times. Tolerating diet however c/o pain when swallowing. Still with left chest and left breast rash. Denied sob, cp, f/c, n/v. Objective - Vital Signs/Intake and Output Vital Signs (last 24 hours): Temp Pulse Resp BP Pulse Ox 97.9 F 91 H 20 120/76 98 05/06/18 16:17 05/07/18 09:40 05/06/18 16:17 05/07/18 09:40 05/06/18 16:17 Intake and Output: 05/07/18 05/07/18 06:59 18:59 Intake Total 2040 360 Output Total 600 875 Balance 1440 -515 - Medications Medications: Current Medications Albuterol Sulfate (Albuterol 0.083% Inhal Viviane (2.5 Mg/3 Ml) Ud) 2.5 mg INH [id number] PRN PRN Reason: Shortness of Breath Last Admin: 05/02/18 16:50 Dose: 2.5 mg Amlodipine Besylate (Norvasc) 5 mg PO DAILY [facility] [place] Last Admin: 05/07/18 09:40 Dose: 5 mg Arformoterol Tartrate (Brovana) 15 mcg IH [id number] [facility] Last Admin: 05/07/18 07:40 Dose: 15 mcg Ascorbic Acid (Vitamin C 500 Mg Tab) 1,000 mg PO DAILY [facility] [place] Last Admin: 05/07/18 09:39 Dose: 1,000 mg Benzocaine/Menthol (Cepacol Sore Throat) 1 devante MT Q2H PRN PRN Reason: Sore Throat Last Admin: 05/05/18 17:24 Dose: 1 devante Benzonatate (Tessalon Perles) 100 mg PO TID [facility] [place] Last Admin: 05/07/18 09:39 Dose: 100 mg Budesonide (Pulmicort Respules) 0.25 mg IH [id number] [facility] [place] Last Admin: 05/07/18 07:40 Dose: 0.25 mg Camphor/Menthol (Bengay) 0.5 gm TOP QID PRN PRN Reason: Bladder Spasm Last Admin: 04/25/18 21:18 Dose: 0.5 gm Clotrimazole (Mycelex Dax) 10 mg MT 5XD [facility] [place] Last Admin: 05/07/18 09:39 Dose: 10 mg Al Hydrox/Mg Hydrox/Simethicone 30 ml/Diphenhydramine HCl 75 mg/Lidocaine 30 ml 0 ml PO Q2H PRN PRN Reason: Mouth/Throat Pain Last Admin: 05/06/18 07:49 Dose: 1 shae Docusate Sodium (Colace) 100 mg PO BID [facility] [place] Last Admin: 05/07/18 09:39 Dose: Not Given Enoxaparin Sodium (Lovenox) 30 mg SC DAILY [facility] [place]; Protocol Last Admin: 05/07/18 09:39 Dose: 30 mg Ergocalciferol (Drisdol 50,000 Intl Units Cap) 1 cap PO FRI [facility] [place] Last Admin: 05/03/18 09:43 Dose: 1 cap Guaifenesin/Dextromethorphan (Mucinex-Dm 600-30 Mg) 1 tab PO BID [facility] [place] Home Med (Home Med) 2 unit PO BID [facility] [place] Last Admin: 05/07/18 09:39 Dose: 2 unit Hydrocortisone (Cortizone 1% Cream) 0 gm TOP BID [facility] [place] Last Admin: 05/07/18 09:40 Dose: 1 applic Loperamide HCl (Imodium) 2 mg PO Q8 PRN PRN Reason: diarrhea, loose stools Last Admin: 05/04/18 15:02 Dose: 2 mg Methylprednisolone (Solu-Medrol) 20 mg IVP Q12 [facility] [place] Last Admin: 05/07/18 09:38 Dose: 20 mg Morphine Sulfate (Morphine) 2 mg IVP Q4H PRN PRN Reason: Pain, severe (8-10) Last Admin: 05/07/18 07:03 Dose: 2 mg Ondansetron HCl (Zofran Inj) 4 mg IVP Q6H PRN PRN Reason: Nausea/Vomiting Last Admin: 05/05/18 20:56 Dose: 4 mg Oxycodone/Acetaminophen (Percocet 2.5/325 Mg Tab) 1 tab PO Q4H PRN PRN Reason: Pain, moderate (4-7) Pantoprazole Sodium (Protonix Ec Tab) 40 mg PO 0600 [facility] [place] Last Admin: 05/07/18 05:47 Dose: 40 mg Polyethylene Glycol (Miralax) 17 gm PO BID [facility] [place] Last Admin: 05/07/18 09:40 Dose: Not Given Pregabalin (Lyrica) 25 mg PO BID [facility] [place] Last Admin: 05/07/18 09:39 Dose: 25 mg Promethazine HCl/Codeine (Phenergan/Codeine Oral Syrup) 5 ml PO Q6H PRN PRN Reason: Cough Last Admin: 05/07/18 05:47 Dose: 5 ml Saliva Substitute (Saliva Substitute) 0.5 ml PO QID [facility] [place] Last Admin: 05/07/18 09:40 Dose: 0.5 ml Sertraline HCl (Zoloft) 25 mg PO QAM [facility] [place] Last Admin: 05/07/18 09:39 Dose: 25 mg Sucralfate (Carafate Oral Susp) 1 gm PO 0630,1130,1630,2200 [facility] [place] Last Admin: 05/07/18 07:02 Dose: 1 gm - Labs Labs: 05/07/18 06:00 05/07/18 06:00 PT 12.2 SECONDS (9.4-12.5) 04/22/18 16:38 INR 1.07 04/22/18 16:38 APTT 30.8 Seconds (25.1-36.5) 04/22/18 16:38 - Additional Findings Additional findings: - Constitutional Appears: Well, Non-toxic, No Acute Distress - Head Exam Head Exam: ATRAUMATIC, NORMAL INSPECTION - Eye Exam Eye Exam: EOMI, Normal appearance, PERRL. absent: Scleral icterus - ENT Exam ENT Exam: Mucous Membranes Moist - Respiratory Exam Respiratory Exam: Clear to Auscultation Bilateral, NORMAL BREATHING PATTERN. absent: Wheezes - Cardiovascular Exam Cardiovascular Exam: REGULAR RHYTHM, +S1, +S2, external jugular vein distended absent: JVD - GI/Abdominal Exam GI & Abdominal Exam: Normal Bowel Sounds, Soft, bilaterally nephrostomy tubes. absent: Tenderness - Extremities Exam Extremities exam: Positive for: normal inspection - Neurological Exam Neurological exam: Alert, Oriented x3 - Psychiatric Exam Psychiatric exam: Normal Affect, Normal Mood - Skin Skin Exam: Intact, Normal Color, Warm Assessment and Plan - Assessment and Plan (Free Text) Plan: Ms Kitchen is a 67 year old female with history of stage III cervical cancer status post chemoradiation, CAD status post stent, CRI, h/o nephrostomy tubes, radiation cystitis, psoriasis, and depression who was admitted for dyspnea on exertion and cough: stage IV cervical carcinoma cancer w/ mets to lung -patient began palliative radiation 04/25/[address] Aguiar - expected length to be approx 2 weeks - last radiation 05/08/18 -after radiation patient will receive chemo - chemo infusion date set for 05/13/2018 in oncology infusion clinic -percocet 1 tab po q6h prn -pregabalin 25mg po bid -continue radiation and ten assess for systemic treatments with Avastin based complications and anthracycline -port was evaluated 05/06 via dye study with Dr Bruce Black - tip of the port concludes between proximal and distal SVC, the tip is abutting the SVC wall and acting as a one-way valve, the port is functional for administration of medications/chemo however drawing blood is not possible given the tip is touching the SVC wall Left Chest Rash -pruritic, patchy rash involving the left breast, chest, shoulder, back and upper neck -per radiation oncologist Dr Aguiar * this is not related to the radiation as this rash extends beyond the field of the radiation * One possible etiology of swelling/skin flushing as well as changes in her voice could be disease progression on radiation -on hydrocortisone cream 1% to affected area bid Odynophagia -ENT Dr Topete consulted - however patient did not want to see Dr Mcmahan (who works with Dr Topete) -GI consulted, Dr Sumner -magjose alfredo mouthwash 5ml 20 minutes ACHS -may need evaluation with barium swallow, upper endoscopy if symptoms continue to worsen Hoarseness -per radiation oncologist Dr Aguiar * the etiology of her hoarseness is not secondary to her treatment since the radiation does not involve the larynx * One possible etiology of swelling/skin flushing as well as changes in her voice could be disease progression on radiation Possible SVC Syndrome -external jugular distended -we will discuss with Dr Reis about possibility of SVC syndrome -increasing venous pressure from tumor burden in mediastium could be causing early SVC syndrome -Dr Bruce Black evaluated patient and stated there is concern about tumor encapsulating SVC - Dr Black will order a dye study to further evaluate this issue. -CT neck and chest w/o contrast 05/02: * Interval increase in the size of the right lower neck lymphadenopathy since the previous exam. Mildly enlarged right upper neck level 2 lymph node. Moderate to mildly severe narrowing of the upper airway at the level of the nasal oral pharynx and supraglottic region. Interval increase in the size of the soft tissue mass lesion at right mediastinum since the prior study. Interval worsening of airspace opacities at the right upper lobe and right middle lobe since the prior study. The differential consideration includes worsening lung metastasis versus superimposed infection. Interval appearance of small right pleural effusion since the prior exam. Moderate to mildly severe narrowing of the right main bronchus and right upper lobe bronchus by the right mediastinal and right hilar mass. The possibility of occlusion or severe narrowing of the SVC should be considered. Cough/CASTANON, Improved -negative for flu swab, normal wbc, afebrile -empiric coverage with augmentin po q12 (started 04/25/18) and levaquin 250mg po qd (started 04/25/18) * augmentin and levaquin both discontinued, zosyn started 04/26/18 also now discontinued; currently on no abx -tessalon perles 100mg po tid, phenergan 5ml po q6h prn -brovana 15mcg ih q12h, budesonide 0.25mg ih q12h, solumedrol 20mg ivp q12h Complicated UTI with E. coli and E. faecalis with right sided nephrostomy tube, Resolved -ua + for leukocyte esterase and nitrates -empiric coverage with augmentin po q12 (started 04/25/18) and levaquin 250mg po qd (started 04/25/18), zosyn started 04/26/18 also now discontinued; currently on no abx -complete total 5-7 day course of Zosyn for E. coli and E. faecalis UTI started 04/26/18 -repeat urine cx negative up to date Depression -continue home med zoloft 25mg po qd CKD -Cr at her baseline of 1.5-2 -watch for upticks -with bilateral nephrostomy tubes Anemia -Hgb at her baseline ~9 -iron studies indicate anemia of chronic disease CAD status post stent -status post 4 coronary stents -no active issues -seen by Dr Oliva, production control scheduler -continue current medications -MUGA scan done LVEF 62% -aspirin being held for hemoptysis prior to admission PPX -lovenox 30mg sc qd -colace 100mg po bid -protonix 40mg po qd -continue home med vitamin c 1000mg po qd -HHD Seen and discussed with Dr Ford
--- NOTE | 2018-05-07 12:11 | PN ---
DATE: 05/07/2018 PULMONARY PROGRESS NOTE REFERRING PHYSICIAN: Dr. Evaristo Saldivar. SUBJECTIVE: The patient is sitting up in bed. No acute distress. No overnight events reported. The patient continues to report pruritic rash to chest, left breast, left shoulder and neck. The patient also has left breast swelling. The patient is currently on hydrocortisone cream for itching and rash plus radiation treatment is scheduled for May 08, 2018. She reports that then she will start systemic therapy. OBJECTIVE: GENERAL: No acute distress. VITAL SIGNS: Blood pressure 120/76, pulse 91, temperature 97.9, and oxygen saturation 98% on room air. HEENT: Moist mucous membranes. NECK: Supple. No JVD. LUNGS: Fair airflow bilaterally. CARDIOVASCULAR: S1 and S2 audible. ABDOMEN: Soft and nontender. No distension. No organomegaly. EXTREMITIES: No bilateral lower extremity edema. NEUROLOGIC: Awake, alert, and verbal. Follows commands. MEDICATIONS: Reviewed. Mucomyst 4 mL inhalation every 6 hours, albuterol 2.5 mg inhalation every 6 hours p.r.n., Magic mouthwash every 2 hours p.r.n., Norvasc 5 mL p.o. daily, Brovana 15 mcg every 12 hours, vitamin C 1000 mg daily, Cepacol throat lozenges every 2 hours p.r.n., Tessalon Perles 100 mg 3 times a day, Pulmicort 0.25 mg inhalation every 12 hours, Bengay 0.5 g topically 4 times a day p.r.n, clotrimazole 5 mg fives times a day to affected area, Colace 100 mg twice a day, Lovenox 30 mg subcutaneous daily, ergocalciferol 50,000 units one cap weekly, hydrocortisone topically twice a day, Imodium 2 mg every 8 hours p.r.n., Solu-Medrol 20 mg every 12 hours, morphine 2 mg every 4 hours p.r.n., Zofran 4 mg every 6 hours p.r.n., Percocet 2.5/325 mg every 4 hours p.r.n, Protonix 40 mg daily, MiraLax 17 g twice a day, Lyrica 25 mg twice a day, Phenergan with codeine 5 mL every 6 hours p.r.n., saliva substitute 4 times a day, Zoloft 25 mg in the morning and Carafate 1 g 4 times a day. LABORATORY DATA: Reviewed. WBC 5.1, RBC 3.2, hemoglobin 9.3, hematocrit 29.7, and platelets 254. Sodium 138, potassium 4.2, chloride 103, carbon dioxide 27, anion gap 12, BUN 36, creatinine 1.5, GFR 35, random glucose 115, calcium 9.5, total bilirubin 0.2, AST 31, ALT 22, alkaline phosphatase 77, total protein 6.9, albumin 3.7, globulin 3.3, and albumin-globulin ratio 1.1. IMPRESSION AND PLAN: Metastatic cervical cancer with metastases to the lung causing external compression to bronchus, history of renal failure requiring bilateral nephrostomy drainage, coronary artery disease, history of coronary stents, bronchitis, obstructive sleep apnea syndrome, pulmonary hypertension, and history of Watkins's esophagus. The patient reports not liking Mucomyst nebulizers and does not want it anymore. We will order p.o. Mucinex. Continue inhaled bronchodilators, gastric prophylaxis, deep venous thrombosis prophylaxis, sleep apnea precaution, and head of bed elevated at 45 degrees. The patient presently refuses to use continuous positive airway pressure machine. The patient is status post left upper arm Port-A-Cath check yesterday. Last dose of radiation May 08, 2018. It is plan for the patient to start systemic treatment after radiation therapy. The will need full pulmonary function test as outpatient. Seen and examined with Dr. Reis. Discussed assessment and plan as described above. Thank you for this consult and we will follow with you. Hira Adame APN Debby Reis MD
[2018-05-07 16:32] VITALS: O2SAT 94
[2018-05-07] MEDS: guaiFENesin-DM 600-30 mg ER Tab PO SCH (17:08)
[2018-05-08] MEDS: Pantoprazole 40 mg EC Tab PO SCH (05:40)
[2018-05-08] MEDS: Promethazine/Cod 6.25mg-10mg/5ml Syr UD PO PRN (05:40)
[2018-05-08] MEDS: Sucralfate 1 gm/10 ml Oral Susp UD PO SCH ×2 (06:27→10:32)
[2018-05-08] MEDS: Morphine 2 mg/ml ISec IVP PRN ×2 (06:33→13:19)
[2018-05-08 06:43] LABS: BASO # 0.01 K/mm3 (0.0-2.0); BASO % 0.2 % (0.0-3.0); EOS % 0.4 % (1.5-5.0); HEMOGLOBIN 9.9 g/dL (12.0-16.0); LYMPH # 0.4 (1.2-3.4); LYMPH % 6.7 % (22.0-35.0); MEAN CELL VOLUME 92.7 fl (80.0-105.0); MEAN CORPUSCULAR HGB CONC 31.3 g/dl (31.0-37.0); MEAN PLATELET VOLUME 9.4 fl (7.0-11.0); MONO # 0.4 (0.1-0.6); MONO % 7.1 % (1.0-6.0); RBC 3.41 10^6/uL (3.5-6.1); RED CELL DISTRIBUTION WIDTH 15.5 % (11.5-14.5); WHITE BLOOD COUNT 5.5 10^3/uL (4.5-11.0)
[2018-05-08 07:00] LABS: ALB/GLOB RATIO 1.1 (1.1-1.8); ALBUMIN 3.7 g/dL (3.0-4.8); CALCIUM 9.6 mg/dL (8.4-10.5)
[2018-05-08 07:07] VITALS: BP 154/96; PULSE 88; TEMP 97.6
[2018-05-08] MEDS: Arformoterol 15 mcg/2 ml Inh Sol IH SCH (07:53)
[2018-05-08] MEDS: Budesonide 0.25 mg/2 ml Inhal Susp UD IH SCH (07:53)
--- NOTE | 2018-05-08 07:54 | CP.PCM.PN ---
Subjective - Date & Time of Evaluation Date of Evaluation: 05/08/18 Time of Evaluation: 06:50 - Subjective Subjective: Lying in bed, easily awaken , alert, no distress Reason for consultation and follow up:Cardiac evaluation and follow up of history of coronary artery disease, post stent, admitted for cough and shortness of breath, history of cervical cancer with metastasis, post chemotherapy and radiation. Seen and examined by me and Dr. Oliva Objective - Vital Signs/Intake and Output Vital Signs (last 24 hours): Temp Pulse Resp BP Pulse Ox 97.6 F 88 20 154/96 H 94 L 05/08/18 06:00 05/08/18 06:00 05/08/18 06:00 05/08/18 06:00 05/08/18 06:00 Intake and Output: 05/08/18 05/08/18 06:59 18:59 Intake Total 1920 Output Total 500 Balance 1420 - Medications Medications: Current Medications Albuterol Sulfate (Albuterol 0.083% Inhal Viviane (2.5 Mg/3 Ml) Ud) 2.5 mg INH Q6 HRESP PRN PRN Reason: Shortness of Breath Last Admin: 05/02/18 16:50 Dose: 2.5 mg Amlodipine Besylate (Norvasc) 5 mg PO DAILY [facility] Last Admin: 05/07/18 09:40 Dose: 5 mg Arformoterol Tartrate (Brovana) 15 mcg IH [id number] [facility] Last Admin: 05/08/18 07:53 Dose: 15 mcg Ascorbic Acid (Vitamin C 500 Mg Tab) 1,000 mg PO DAILY [facility] Last Admin: 05/07/18 09:39 Dose: 1,000 mg Benzocaine/Menthol (Cepacol Sore Throat) 1 devante MT Q2H PRN PRN Reason: Sore Throat Last Admin: 05/05/18 17:24 Dose: 1 devante Benzonatate (Tessalon Perles) 100 mg PO TID [facility] Last Admin: 05/07/18 17:08 Dose: 100 mg Budesonide (Pulmicort Respules) 0.25 mg IH [id number] [facility] Last Admin: 05/08/18 07:53 Dose: 0.25 mg Camphor/Menthol (Bengay) 0.5 gm TOP QID PRN PRN Reason: Bladder Spasm Last Admin: 04/25/18 21:18 Dose: 0.5 gm Clotrimazole (Mycelex Adx) 10 mg MT 5XD [facility] Last Admin: 05/08/18 05:40 Dose: 10 mg Al Hydrox/Mg Hydrox/Simethicone 30 ml/Diphenhydramine HCl 75 mg/Lidocaine 30 ml 0 ml PO Q2H PRN PRN Reason: Mouth/Throat Pain Last Admin: 05/06/18 07:49 Dose: 1 shae Docusate Sodium (Colace) 100 mg PO BID [facility] Last Admin: 05/07/18 17:11 Dose: Not Given Enoxaparin Sodium (Lovenox) 30 mg SC DAILY [facility]; Protocol Last Admin: 05/07/18 09:39 Dose: 30 mg Ergocalciferol (Drisdol 50,000 Intl Units Cap) 1 cap PO FRI [facility] Last Admin: 05/03/18 09:43 Dose: 1 cap Guaifenesin/Dextromethorphan (Mucinex-Dm 600-30 Mg) 1 tab PO BID [facility] Last Admin: 05/07/18 17:08 Dose: 1 tab Home Med (Home Med) 2 unit PO BID [facility] Last Admin: 05/07/18 17:08 Dose: 2 unit Hydrocortisone (Cortizone 1% Cream) 0 gm TOP BID [facility] Last Admin: 05/07/18 17:08 Dose: 1 applic Loperamide HCl (Imodium) 2 mg PO Q8 PRN PRN Reason: diarrhea, loose stools Last Admin: 05/04/18 15:02 Dose: 2 mg Methylprednisolone (Solu-Medrol) 20 mg IVP Q12 [facility] Last Admin: 05/07/18 21:07 Dose: 20 mg Morphine Sulfate (Morphine) 2 mg IVP Q4H PRN PRN Reason: Pain, severe (8-10) Last Admin: 05/08/18 06:33 Dose: 2 mg Ondansetron HCl (Zofran Inj) 4 mg IVP Q6H PRN PRN Reason: Nausea/Vomiting Last Admin: 05/05/18 20:56 Dose: 4 mg Oxycodone/Acetaminophen (Percocet 2.5/325 Mg Tab) 1 tab PO Q4H PRN PRN Reason: Pain, moderate (4-7) Pantoprazole Sodium (Protonix Ec Tab) 40 mg PO 0600 [facility] Last Admin: 05/08/18 05:40 Dose: 40 mg Polyethylene Glycol (Miralax) 17 gm PO BID [facility] Last Admin: 05/07/18 17:11 Dose: Not Given Pregabalin (Lyrica) 25 mg PO BID [facility] Last Admin: 05/07/18 17:08 Dose: 25 mg Promethazine HCl/Codeine (Phenergan/Codeine Oral Syrup) 5 ml PO Q6H PRN PRN Reason: Cough Last Admin: 05/08/18 05:40 Dose: 5 ml Saliva Substitute (Saliva Substitute) 0.5 ml PO QID [facility] Last Admin: 05/07/18 21:06 Dose: 0.5 ml Sertraline HCl (Zoloft) 25 mg PO QAM [facility] Last Admin: 05/07/18 09:39 Dose: 25 mg Sucralfate (Carafate Oral Susp) 1 gm PO 0630,1130,1630,2200 [facility] Last Admin: 05/08/18 06:27 Dose: 1 gm - Labs Labs: 05/08/18 06:00 05/08/18 06:00 PT 12.2 SECONDS (9.4-12.5) 04/22/18 16:38 INR 1.07 04/22/18 16:38 APTT 30.8 Seconds (25.1-36.5) 04/22/18 16:38 - Constitutional Appears: Non-toxic, No Acute Distress - Head Exam Head Exam: NORMAL INSPECTION, NORMOCEPHALIC - Eye Exam Eye Exam: Normal appearance Pupil Exam: NORMAL ACCOMODATION - ENT Exam ENT Exam: Mucous Membranes Dry - Respiratory Exam Respiratory Exam: Decreased Breath Sounds, NORMAL BREATHING PATTERN - Cardiovascular Exam Cardiovascular Exam: +S1, +S2 - GI/Abdominal Exam GI & Abdominal Exam: Soft, Normal Bowel Sounds - Extremities Exam Extremities Exam: Full ROM, Normal Capillary Refill - Neurological Exam Neurological Exam: Alert, Awake, Oriented x3 - Psychiatric Exam Psychiatric exam: Normal Affect, Normal Mood - Skin Skin Exam: Dry, Normal Color, Warm Assessment and Plan - Assessment and Plan (Free Text) Assessment: A 67 year old female who came in to the ER due to cough and shortness of breath. History of coronary artery disease, post stent, admitted for cough and shortness of breath, history of cervical cancer with metastasis, post chemotherapy and radiation, chronic renal insufficiency, bilateral nephrostomy,hydronephrosis, radiation cystitis, and psoriasis,depression, vesicovaginal fistula. Now metastasis to the lung with external compression of the bronchus.MUGA scan done LVEF 62%. Urinary tract infection, E.Coli in urine, completed antibiotics therapy, repeat urine culture, negative. Off antibiotics per ID. Seen by Dr. Black for possible SVC syndrome. Completed antibiotic therapy for UTI, repeat cultures negative. Cardiac status stable. dryness on skin especially chest. Radiation therapy in progress, today is the last day. Plan: No distress Cardiac status stable Heart rate controlled Blood pressure controlled Radiation therapy in progress today is the last day of treatment, For chemotherapy as out patient On Norvasc 5 mg daily,Lovenox 30 mg daily, Solumedrol 40 mg daily Continue current treatment Continue current medications Discharge planning, possible discharge after radiation therapy Will follow up Plan and treatment discussed with Dr. Oliva
[2018-05-08] MEDS: TRANEXAMIC ACID 650 MG PO SCH (10:00)
[2018-05-08] MEDS: POLYETHYLENE GLYCOL 3350 17 GM/Dose PACKET PO SCH (10:00)
[2018-05-08] MEDS: Enoxaparin 30 mg Syringe SC SCH (10:03)
[2018-05-08] MEDS: guaiFENesin-DM 600-30 mg ER Tab PO SCH (10:04)
[2018-05-08] MEDS: MethylPREDNISolone 40 mg Vial IVP SCH (10:06)
[2018-05-08] MEDS: Hydrocortisone 1% Cream (30 GM) TOP SCH (10:16)
[2018-05-08] MEDS: Saliva Substitute 44.3 ML PO SCH ×2 (10:47→14:48)
--- NOTE | 2018-05-08 12:55 | CP.PCM.DIS ---
Provider - Provider Date of Admission: 04/23/18 15:59 Attending physician: Evaristo Saldivar MD Primary care physician: PMD: Dr Melchor Consults: 04/23/18 02:09 Social Work Referral Routine Comment: lives alone Physician Instructions: Reason For Exam: protocol 04/23/18 02:17 Transition In Care/Readmission Reduction Routine Comment: Physician Instructions: Reason For Exam: protocol 04/23/18 03:01 Nursing Referral for Palliative Care Routine Comment: Physician Instructions: Reason For Exam: readmit 04/23/18 13:10 Consult [Physician Consult] Routine Comment: Consulting Provider: Corrie Aguiar Consulting Physician: Corrie Aguiar Reason for Consult: radiation 04/25/18 18:36 Consult [Physician Consult] Routine Comment: Consulting Provider: Abelino Man Consulting Physician: Abelino Man Reason for Consult: nephrostomy tubes/uti Consult [Physician Consult] Routine Comment: Consulting Provider: Debby Reis Consulting Physician: Debby Reis Reason for Consult: pulm eval 04/26/18 12:21 Consult [Physician Consult] Routine Comment: Consulting Provider: Bruce Black Consulting Physician: Bruec Black Reason for Consult: bilateral nephrostomy tube change 04/27/18 12:57 Discharge Planning [Case Management Referral] Routine Comment: Physician Instructions: Reason For Exam: home needs Reason for Referral: Discharge Planning 04/28/18 21:20 Physician Consult Routine Comment: Consulting Provider: Max Topete Consulting Physician: Max Topete Reason for Consult: throat/neck pain 04/30/18 15:48 Physician Consult Routine Comment: Consulting Provider: Debby Oliva Consulting Physician: Debby Oliva Reason for Consult: CARDIAC HISTORY 04/30/18 17:47 Gastroenterology Consult Routine Comment: Consulting Provider: Harvey Sumner V Consulting Physician: Harvey Sumner V Reason for Consult: odynophagia; currently receiving radiation 04/30/18 20:52 Physician Consult Routine Comment: Consulting Provider: Bruce Black Consulting Physician: Bruce Black Reason for Consult: check PAC no bld return Additional Comments: was given cath flow 2x the last time in 3R still no bld return then 05/03/18 16:08 Discharge Planning [Case Management Referral] Routine Comment: Physician Instructions: Reason For Exam: home VNA , max assist home needs Reason for Referral: Discharge Planning Time Spent in preparation of Discharge (in minutes): 47 Diagnosis - Discharge Diagnosis (1) Cough Status: Chronic Priority: High (2) Dysphagia Status: Chronic Priority: High (3) Metastatic cancer Status: Chronic Priority: High Hospital Course - Lab Results Lab Results: Micro Results 04/29/18 15:00 Urine Random Urine Culture - Final No Growth (<1,000 CFU/ML) 04/28/18 15:20 Stool C. difficile Antigen & Toxins A,B - Final 04/22/18 16:35 Blood Blood Culture - Final NO GROWTH AFTER 5 DAYS 04/22/18 16:35 Blood Gram Stain - Final TEST NOT PERFORMED 04/22/18 16:20 Blood Blood Culture - Final NO GROWTH AFTER 5 DAYS 04/22/18 16:20 Blood Gram Stain - Final TEST NOT PERFORMED 04/25/18 16:30 Urine,Clean Catch Urine Culture - Final No Growth (<1,000 CFU/ML) 04/22/18 17:47 Urine,Kidney Urine Culture - Final Escherichia Coli Enterococcus Faecalis Most Recent Lab Values WBC 5.5 10^3/uL (4.5-11.0) 05/08/18 06:00 RBC 3.41 10^6/uL (3.5-6.1) L 05/08/18 06:00 Hgb 9.9 g/dL (12.0-16.0) L 05/08/18 06:00 Hct 31.6 % (36.0-48.0) L 05/08/18 06:00 MCV 92.7 fl (80.0-105.0) 05/08/18 06:00 MCH 29.0 pg (25.0-35.0) 05/08/18 06:00 MCHC 31.3 g/dl (31.0-37.0) 05/08/18 06:00 RDW 15.5 % (11.5-14.5) H 05/08/18 06:00 Plt Count 258 10^3/uL (120.0-450.0) 05/08/18 06:00 MPV 9.4 fl (7.0-11.0) 05/08/18 06:00 Gran % 88.2 % (50.0-68.0) H 05/03/18 07:00 Neut % (Auto) 85.6 % (50.0-68.0) H 05/08/18 06:00 Lymph % (Auto) 6.7 % (22.0-35.0) L 05/08/18 06:00 Faulk % (Auto) 7.1 % (1.0-6.0) H 05/08/18 06:00 Eos % (Auto) 0.4 % (1.5-5.0) L 05/08/18 06:00 Baso % (Auto) 0.2 % (0.0-3.0) 05/08/18 06:00 Gran # 3.15 (1.4-6.5) 05/03/18 07:00 Lymph # (Auto) 0.4 (1.2-3.4) L 05/08/18 06:00 Faulk # (Auto) 0.4 (0.1-0.6) 05/08/18 06:00 Eos # (Auto) 0.0 (0.0-0.7) 05/08/18 06:00 Baso # (Auto) 0.01 K/mm3 (0.0-2.0) 05/08/18 06:00 Absolute Neuts (auto) 4.71 (1.4-6.5) 05/08/18 06:00 PT 12.2 SECONDS (9.4-12.5) 04/22/18 16:38 INR 1.07 04/22/18 16:38 APTT 30.8 Seconds (25.1-36.5) 04/22/18 16:38 pO2 54 mm/Hg (30-55) 04/22/18 16:35 VBG pH 7.27 (7.32-7.43) L 04/22/18 16:35 VBG pCO2 60.0 (40-60) 04/22/18 16:35 VBG HCO3 27.6 mmol/l (21-28) 04/22/18 16:35 VBG Total CO2 29.4 mmol.L (22-28) H 04/22/18 16:35 VBG O2 Sat (Calc) 89.0 % (40-65) H 04/22/18 16:35 VBG Base Excess -0.6 mmol/L (0.0-2.0) L 04/22/18 16:35 VBG Potassium 3.8 mmol/L (3.6-5.2) 04/22/18 16:35 Sodium 138.0 mmol/L (132-148) 04/22/18 16:35 Chloride 107.0 mmol/L (98-107) 04/22/18 16:35 Glucose 91 mg/dl (65-105) 04/22/18 16:35 Lactate 0.7 mmol/L (0.7-2.1) 04/22/18 16:35 FiO2 21.0 % 04/22/18 16:35 Sodium 140 mmol/L (132-148) 05/08/18 06:00 Potassium 4.5 mmol/L (3.6-5.0) 05/08/18 06:00 Chloride 103 mmol/L (98-107) 05/08/18 06:00 Carbon Dioxide 29 mmol/L (21-33) 05/08/18 06:00 Anion Gap 13 (10-20) 05/08/18 06:00 BUN 38 mg/dL (7-21) H 05/08/18 06:00 Creatinine 1.6 mg/dl (0.7-1.2) H 05/08/18 06:00 Est GFR ( Amer) 39 05/08/18 06:00 Est GFR (Non-Af Amer) 32 05/08/18 06:00 Random Glucose 99 mg/dL (70-110) 05/08/18 06:00 Calcium 9.6 mg/dL (8.4-10.5) 05/08/18 06:00 Phosphorus 4.2 mg/dL (2.5-4.5) 04/23/18 08:45 Magnesium 2.2 mg/dL (1.7-2.2) 04/23/18 08:45 Iron 22 ug/dL (45-180) L 04/23/18 08:45 TIBC 246 ug/dL (265-497) L 04/23/18 08:45 % Saturation 9 % (20-55) L 04/23/18 08:45 Ferritin 107.0 ng/mL 04/23/18 08:45 Total Bilirubin 0.2 mg/dL (0.2-1.3) 05/08/18 06:00 AST 28 U/L (14-36) 05/08/18 06:00 ALT 30 U/L (7-56) 05/08/18 06:00 Alkaline Phosphatase 75 U/L (38-126) 05/08/18 06:00 Lactate Dehydrogenase 508 U/L (333-699) 04/22/18 16:38 Total Creatine Kinase 47 U/L (35-230) 04/22/18 16:38 Troponin I < 0.01 ng/mL 04/23/18 08:45 NT-Pro-B Natriuret Pep 2580 pg/mL (0-450) H 05/04/18 09:03 Total Protein 7.1 g/dL (5.8-8.3) 05/08/18 06:00 Albumin 3.7 g/dL (3.0-4.8) 05/08/18 06:00 Globulin 3.4 gm/dL 05/08/18 06:00 Albumin/Globulin Ratio 1.1 (1.1-1.8) 05/08/18 06:00 Triglycerides 134 mg/dL (35-160) 04/23/18 08:45 Cholesterol 153 mg/dL (130-200) 04/23/18 08:45 LDL Cholesterol Direct 69 mg/dL (0-129) 04/23/18 08:45 HDL Cholesterol 36 mg/dL (29-60) 04/23/18 08:45 Vitamin B12 225 pg/mL (239-931) L 04/23/18 08:45 Folate 10.3 ng/mL 04/23/18 08:45 Procalcitonin < 0.05 NG/ML (0.19-0.49) L 05/04/18 09:03 Free T4 1.01 ng/dL (0.78-2.19) 04/23/18 08:45 TSH 3rd Generation 1.09 mIU/mL (0.46-4.68) 04/23/18 08:45 Venous Blood Potassium 3.8 mmol/L (3.6-5.2) 04/22/18 16:35 Urine Color Light yellow (YELLOW) 04/25/18 16:30 Urine Appearance Slight-cloudy (CLEAR) 04/25/18 16:30 Urine pH 6.5 (4.7-8.0) 04/25/18 16:30 Ur Specific Caney 1.025 (1.005-1.035) 04/25/18 16:30 Urine Protein 100 mg/dL (<30 mg/dL) H 04/25/18 16:30 Urine Glucose (UA) Negative mg/dL (NEGATIVE) 04/25/18 16:30 Urine Ketones Negative mg/dL (NEGATIVE) 04/25/18 16:30 Urine Blood Small (NEGATIVE) H 04/25/18 16:30 Urine Nitrate Negative (NEGATIVE) 04/25/18 16:30 Urine Bilirubin Negative (NEGATIVE) 04/25/18 16:30 Urine Urobilinogen 0.2 E.U./dL (<1 E.U./dL) 04/25/18 16:30 Ur Leukocyte Esterase Large Jing/uL (NEGATIVE) H 04/25/18 16:30 Urine RBC 2 - 5 /hpf (0-2) H 04/25/18 16:30 Urine WBC 10 - 15 /hpf (0-6) H 04/25/18 16:30 Ur Epithelial Cells 0 - 2 /hpf (0-5) 04/25/18 16:30 Urine Bacteria Many /hpf (NONE) 04/25/18 16:30 Influenza Typ A,B (EIA) Negative for flu a/b (NEGATIVE) 04/23/18 10:50 Blood Type O POSITIVE 04/22/18 16:38 Antibody Screen Negative 04/22/18 16:38 BBK History Checked Patient has bt 04/22/18 16:38 - Hospital Course Hospital Course: Ms Kitchen is a 67 year old female with history of stage III cervical cancer status post chemoradiation, CAD status post stent, CRI, h/o nephrostomy tubes, radiation cystitis, psoriasis, and depression who was admitted for dyspnea on exertion and cough. Patient denies fevers or chills. She denies chest pain. Patient denies lower leg swelling. Patient states when she was in the hospital last week symptoms had improved but when she went home she found the symptoms were worsening and she found herself becoming more short of breath on exertion. Patient denies dizziness or weakness. No abdominal pain. Patient denies uri nary symptoms. PMHx:CAD,chronic renal insufficiency, cervical cancer s/p chemo/ radiation, radiation cystitis, GI bleed. PHSx: cardiac stents x4, bilateral nephrostomy tubes, hysterectomy, ankle ORIF Social History: Former heavy smoker, denies alcohol or dug use. Lives alone. Family History: Non contributory HOSPITAL COURSE: Ms Kitchen is a 67 year old female with history of stage III cervical cancer status post chemoradiation, CAD status post stent, CRI, h/o nephrostomy tubes, radiation cystitis, psoriasis, and depression who was admitted for dyspnea on exertion and cough: stage IV cervical carcinoma cancer w/ mets to lung -patient began palliative radiation 04/25/[address] Aguiar - expected length to be approx 2 weeks - last radiation 05/08/18 -after radiation patient will receive chemo - chemo infusion date set for 05/13/2018 in oncology infusion clinic -percocet 1 tab po q6h prn -pregabalin 25mg po bid -continue radiation and ten assess for systemic treatments with Avastin based complications and anthracycline -port was evaluated 05/06 via dye study with Dr Bruce Black - tip of the port concludes between proximal and distal SVC, the tip is abutting the SVC wall and acting as a one-way valve, the port is functional for administration of medications/chemo however drawing blood is not possible given the tip is touching the SVC wall Left Chest Rash -pruritic, patchy rash involving the left breast, chest, shoulder, back and upper neck -per radiation oncologist Dr Aguiar * this is not related to the radiation as this rash extends beyond the field of the radiation * One possible etiology of swelling/skin flushing as well as changes in her voice could be disease progression on radiation -on hydrocortisone cream 1% to affected area bid Odynophagia -ENT Dr Topete consulted - however patient did not want to see Dr Mcmahan (who works with Dr Topete) -GI consulted, Dr Sumner -magic mouthwash 5ml 20 minutes ACHS -may need evaluation with barium swallow, upper endoscopy if symptoms continue to worsen Hoarseness -per radiation oncologist Dr Aguiar * the etiology of her hoarseness is not secondary to her treatment since the radiation does not involve the larynx * One possible etiology of swelling/skin flushing as well as changes in her voice could be disease progression on radiation Possible SVC Syndrome -external jugular distended -we will discuss with Dr Reis about possibility of SVC syndrome -increasing venous pressure from tumor burden in mediastium could be causing early SVC syndrome -Dr Bruce Black evaluated patient and stated there is concern about tumor encapsulating SVC - Dr Black will order a dye study to further evaluate this issue. -CT neck and chest w/o contrast 05/02: * Interval increase in the size of the right lower neck lymphadenopathy since the previous exam. Mildly enlarged right upper neck level 2 lymph node. Moderate to mildly severe narrowing of the upper airway at the level of the nasal oral pharynx and supraglottic region. Interval increase in the size of the soft tissue mass lesion at right mediastinum since the prior study. Interval worsening of airspace opacities at the right upper lobe and right middle lobe since the prior study. The differential consideration includes worsening lung metastasis versus superimposed infection. Interval appearance of small right pleural effusion since the prior exam. Moderate to mildly severe narrowing of the right main bronchus and right upper lobe bronchus by the right mediastinal and right hilar mass. The possibility of occlusion or severe narrowing of the SVC should be considered. Cough/CASTANON, Improved -negative for flu swab, normal wbc, afebrile -empiric coverage with augmentin po q12 (started 04/25/18) and levaquin 250mg po qd (started 04/25/18) * augmentin and levaquin both discontinued, zosyn started 04/26/18 also now discontinued; currently on no abx -tessalon perles 100mg po tid, phenergan 5ml po q6h prn -brovana 15mcg ih q12h, budesonide 0.25mg ih q12h, solumedrol 20mg ivp q12h Complicated UTI with E. coli and E. faecalis with right sided nephrostomy tube, Resolved -ua + for leukocyte esterase and nitrates -empiric coverage with augmentin po q12 (started 04/25/18) and levaquin 250mg po qd (started 04/25/18), zosyn started 04/26/18 also now discontinued; currently on no abx -complete total 5-7 day course of Zosyn for E. coli and E. faecalis UTI started 04/26/18 -repeat urine cx negative up to date Depression -continue home med zoloft 25mg po qd CKD -Cr at her baseline of 1.5-2 -watch for upticks -with bilateral nephrostomy tubes Anemia -Hgb at her baseline ~9 -iron studies indicate anemia of chronic disease CAD status post stent -status post 4 coronary stents -no active issues -seen by Dr Oliva, financial sales associate -continue current medications -MUGA scan done LVEF 62% -aspirin being held for hemoptysis prior to admission PPX -lovenox 30mg sc qd -colace 100mg po bid -protonix 40mg po qd -continue home med vitamin c 1000mg po qd -HHD Seen and discussed with Dr Melchor Discharge Exam - Head Exam Head Exam: NORMAL INSPECTION, NORMOCEPHALIC - Additional Findings Additional findings: - Constitutional Appears: Well, Non-toxic, No Acute Distress - Head Exam Head Exam: ATRAUMATIC, NORMAL INSPECTION - Eye Exam Eye Exam: EOMI, Normal appearance, PERRL. absent: Scleral icterus - ENT Exam ENT Exam: Mucous Membranes Moist - Respiratory Exam Respiratory Exam: Clear to Auscultation Bilateral, NORMAL BREATHING PATTERN. absent: Wheezes - Cardiovascular Exam Cardiovascular Exam: REGULAR RHYTHM, +S1, +S2, external jugular vein distended absent: JVD - GI/Abdominal Exam GI & Abdominal Exam: Normal Bowel Sounds, Soft, bilaterally nephrostomy tubes. absent: Tenderness - Extremities Exam Extremities exam: Positive for: normal inspection - Neurological Exam Neurological exam: Alert, Oriented x3 - Psychiatric Exam Psychiatric exam: Normal Affect, Normal Mood - Skin Skin Exam: Intact, Normal Color, Warm Discharge Plan - Discharge Medications Prescriptions: Albuterol Sulfate [Proair Hfa] 2 puff IH Q6H PRN #1 inh PRN Reason: Shortness Of Breath Aluminum Hydroxide/Magnesium [Maalox Plus 30 ml] 30 ml PO Q2H PRN #1 udc PRN Reason: Mouth/Throat Pain Ascorbic Acid [Vitamin C] 1,000 mg PO DAILY #30 tablet Benzocaine/Menthol [Cepacol Sore Throat] 1 devante MT Q2H PRN #60 devante PRN Reason: Sore Throat Benzonatate [Tessalon Perles] 100 mg PO TID #90 sgl Cetirizine HCl 5 mg PO DAILY #30 tablet Guaifenesin [Mucinex] 600 mg PO BID #60 tab.er.12h Hydrocortisone 1% Cream [Cortizone 1% Cream] 1 % TOP BID #1 tube Methylprednisolone [Medrol Dose Pack (21 tabs)] 4 mg PO DAILY #21 mg Montelukast [Singulair] 10 mg PO HS #30 tab Sucralfate [Carafate Oral Susp] 1 gm PO 0630,1130,1630,2200 #1 [facility] [place] Plan Condition: FAIR Disposition: HOME/ ROUTINE Instructions: Heart Failure, Adult (DC), Shortness of Breath (Dyspnea) (DC), Cough, Adult (DC), Radiation Therapy Additional Instructions: PATIENT TO FOLLOW UP WITH DR. MELCHOR WITHIN 7 DAYS OF DISCHARGE. YOU HAVE AN APPOINTMENT THIS Sunday AT 8AM IN THE ONCOLOGY INFUSION CLINIC ON THE 3RD FLOOR. PLEASE FOLLOW-UP WITH HEALTH EDUCATION DIRECTOR DR REIS WITHIN 2 WEEKS OF DISCHARGE. WHEN YOU FOLLOW-UP WITH A HEALTH EDUCATION DIRECTOR, YOU WILL NEED TO HAVE A PULMONARY PFT TEST DONE. ALL YOUR MEDICATIONS WERE CALLED INTO YOUR PHARMACY [facility] - PLEASE CALL THE PHARMACY AND LET THEM KNOW WHEN YOU WOULD LIKE THESE MEDICATIONS DELIVERED TO YOUR HOME. ANY NEW ONSET OF SYMPTOMS SUCH SHORTNESS OF BREATH, CHEST PAIN, BLEEDING, NAUSEA, VOMITING, REPORT BACK TO THE ER IMMEDIATELY. Referrals: Gudelia Melchor MD [Staff Provider] -
[2018-05-08] MEDS: Benzocaine/Menthol (Cepacol) Lozenge MT PRN ×2 (13:19→14:48)
--- NOTE | 2018-05-08 13:43 | CP.PCM.PN ---
Subjective - Date & Time of Evaluation Date of Evaluation: 05/08/18 Time of Evaluation: 10:55 - Subjective Subjective: Comfortable in bed, no fevers, not in distress. Objective - Vital Signs/Intake and Output Vital Signs (last 24 hours): Temp Pulse Resp BP Pulse Ox 97.9 F 91 H 20 120/76 98 05/06/18 16:17 05/07/18 09:40 05/06/18 16:17 05/07/18 09:40 05/06/18 16:17 Intake and Output: 05/07/18 05/07/18 06:59 18:59 Intake Total 2040 360 Output Total 600 875 Balance 1440 -515 - Medications Medications: Current Medications Albuterol Sulfate (Albuterol 0.083% Inhal Viviane (2.5 Mg/3 Ml) Ud) 2.5 mg INH [id number] PRN PRN Reason: Shortness of Breath Last Admin: 05/02/18 16:50 Dose: 2.5 mg Amlodipine Besylate (Norvasc) 5 mg PO DAILY [facility] Last Admin: 05/07/18 09:40 Dose: 5 mg Arformoterol Tartrate (Brovana) 15 mcg IH [id number] [facility] Last Admin: 05/07/18 07:40 Dose: 15 mcg Ascorbic Acid (Vitamin C 500 Mg Tab) 1,000 mg PO DAILY [facility] Last Admin: 05/07/18 09:39 Dose: 1,000 mg Benzocaine/Menthol (Cepacol Sore Throat) 1 devante MT Q2H PRN PRN Reason: Sore Throat Last Admin: 05/05/18 17:24 Dose: 1 devante Benzonatate (Tessalon Perles) 100 mg PO TID [facility] Last Admin: 05/07/18 09:39 Dose: 100 mg Budesonide (Pulmicort Respules) 0.25 mg IH [id number] [facility] Last Admin: 05/07/18 07:40 Dose: 0.25 mg Camphor/Menthol (Bengay) 0.5 gm TOP QID PRN PRN Reason: Bladder Spasm Last Admin: 04/25/18 21:18 Dose: 0.5 gm Clotrimazole (Mycelex Dax) 10 mg MT 5XD [facility] Last Admin: 05/07/18 09:39 Dose: 10 mg Al Hydrox/Mg Hydrox/Simethicone 30 ml/Diphenhydramine HCl 75 mg/Lidocaine 30 ml 0 ml PO Q2H PRN PRN Reason: Mouth/Throat Pain Last Admin: 05/06/18 07:49 Dose: 1 shae Docusate Sodium (Colace) 100 mg PO BID [facility] Last Admin: 05/07/18 09:39 Dose: Not Given Enoxaparin Sodium (Lovenox) 30 mg SC DAILY [facility]; Protocol Last Admin: 05/07/18 09:39 Dose: 30 mg Ergocalciferol (Drisdol 50,000 Intl Units Cap) 1 cap PO FRI [facility] Last Admin: 05/03/18 09:43 Dose: 1 cap Guaifenesin/Dextromethorphan (Mucinex-Dm 600-30 Mg) 1 tab PO BID [facility] Home Med (Home Med) 2 unit PO BID [facility] Last Admin: 05/07/18 09:39 Dose: 2 unit Hydrocortisone (Cortizone 1% Cream) 0 gm TOP BID [facility] Last Admin: 05/07/18 09:40 Dose: 1 applic Loperamide HCl (Imodium) 2 mg PO Q8 PRN PRN Reason: diarrhea, loose stools Last Admin: 05/04/18 15:02 Dose: 2 mg Methylprednisolone (Solu-Medrol) 20 mg IVP Q12 [facility] Last Admin: 05/07/18 09:38 Dose: 20 mg Morphine Sulfate (Morphine) 2 mg IVP Q4H PRN PRN Reason: Pain, severe (8-10) Last Admin: 05/07/18 07:03 Dose: 2 mg Ondansetron HCl (Zofran Inj) 4 mg IVP Q6H PRN PRN Reason: Nausea/Vomiting Last Admin: 05/05/18 20:56 Dose: 4 mg Oxycodone/Acetaminophen (Percocet 2.5/325 Mg Tab) 1 tab PO Q4H PRN PRN Reason: Pain, moderate (4-7) Pantoprazole Sodium (Protonix Ec Tab) 40 mg PO 0600 [facility] Last Admin: 05/07/18 05:47 Dose: 40 mg Polyethylene Glycol (Miralax) 17 gm PO BID [facility] Last Admin: 05/07/18 09:40 Dose: Not Given Pregabalin (Lyrica) 25 mg PO BID [facility] Last Admin: 01/29/19 09:39 Dose: 25 mg Promethazine HCl/Codeine (Phenergan/Codeine Oral Syrup) 5 ml PO Q6H PRN PRN Reason: Cough Last Admin: 05/07/18 05:47 Dose: 5 ml Saliva Substitute (Saliva Substitute) 0.5 ml PO QID [facility] Last Admin: 05/07/18 09:40 Dose: 0.5 ml Sertraline HCl (Zoloft) 25 mg PO QAM [facility] Last Admin: 05/07/18 09:39 Dose: 25 mg Sucralfate (Carafate Oral Susp) 1 gm PO 0630,1130,1630,2200 [facility] Last Admin: 05/07/18 07:02 Dose: 1 gm - Labs Labs: 05/07/18 06:00 05/07/18 06:00 PT 12.2 SECONDS (9.4-12.5) 04/22/18 16:38 INR 1.07 04/22/18 16:38 APTT 30.8 Seconds (25.1-36.5) 04/22/18 16:38 - Constitutional Appears: Chronically Ill - Head Exam Head Exam: NORMAL INSPECTION - Respiratory Exam Respiratory Exam: Decreased Breath Sounds - Cardiovascular Exam Cardiovascular Exam: +S1, +S2 - GI/Abdominal Exam GI & Abdominal Exam: Soft. absent: Tenderness Assessment and Plan - Assessment and Plan (Free Text) Plan: Assessment S/P complicated UTI with E. coli and E. faecalis, in this patient with indwelling right sided nephrostomy tube presenting with hematuria - repeat urine cx negative history of Urinary tract infection with Klebsiella oxytoca history of pseudomonas, Klebsiella and Enterococcus faecalis UTI enterococcus and pseudomonas UTI in the past cervical cancer S/P chemotherapy and radiation therapy with history or radiation cystitis history of transient ischemic attack GERD coronary artery disease sleep apnea history of psoriasis history of diverticulitis history of depression chronic renal failure S/P nephrostomy tube placement Plan completed course of Zosyn, repeat urine cx are negative, monitor off antibiotics will have outpatient follow up with Dr. Ford
--- NOTE | 2018-05-08 14:19 | PN ---
DATE: 05/08/2018 PULMONARY PROGRESS NOTE REFERRING PHYSICIAN: Dr. De Guzman. SUBJECTIVE: The patient is sitting up in bed. No acute distress. No overnight events reported. The patient reports being discharged home today. No headache, rhinitis, cough, shortness of breath, chest pain, abdominal pain, nausea, vomiting, diarrhea, leg pain, or leg swelling reported today. OBJECTIVE: GENERAL: No acute distress. VITAL SIGNS: Blood pressure 154/96, pulse 88, temperature 97.6, oxygen saturation 94% on room air. HEENT: Moist mucous membranes. NECK: Supple. No JVD. LUNGS: Fair airflow bilaterally. CARDIOVASCULAR: S1 and S2 audible. ABDOMEN: Soft and nontender. No distension. No organomegaly. EXTREMITIES: No bilateral lower extremity edema. NEUROLOGIC: Awake, alert, and verbal. Follows commands. MEDICATIONS: Reviewed. Magic mouth wash every 2 hours p.r.n., albuterol 2.5 mg inhalation every 6 hours p.r.n., Norvasc 5 mg daily, Brovana 15 mcg every 12 hours, vitamin C 1000 mg daily, Cepacol throat lozenges every 2 hours p.r.n., Tessalon Perles 100 mg 3 times a day, Pulmicort 0.25 mg one inhalation every 2 hours, BenGay 0.5 g topically 4 times a day p.r.n., clotrimazole 10 mg 5 times a day, Colace 100 mg twice a day, Lovenox 30 mg daily, ergocalciferol 50,000 units weekly, Mucinex twice a day, hydrocortisone topically twice a day, Solu-Medrol 20 mg every 12 hours, morphine sulfate 2 mg every 4 hours p.r.n., Zofran 4 mg every 6 hours p.r.n., Percocet 2.5/325 mg every 4 hours p.r.n., Protonix 40 mg daily, MiraLax 17 g twice a day, Lyrica 25 mg twice a day, Phenergan with codeine 5 mL every 6 hours p.r.n., saliva substitute 4 times a day, Zoloft 25 mg daily, Carafate 1 g 4 times a day. LABORATORY DATA: Reviewed. WBC 5.5, RBC 3.1, hemoglobin 9.2, hematocrit 31.6, and platelets 258. Sodium 140, potassium 4.4, chloride 103, carbon dioxide 29, anion gap 13, BUN 38, creatinine 1.6, GFR 32, random glucose 99, calcium 9.6. Total bilirubin 0.2, AST 28, ALT 30, alkaline phosphatase 75, total protein 7.1, albumin 3.7, globulin 3.4, and albumin-globulin ratio 1.1. IMPRESSION AND PLAN: Metastatic cervical cancer with metastases to the lung causing external compression to the bronchus, history of renal failure requiring bilateral nephrostomy drainage, coronary artery disease, history of coronary stents, bronchitis, obstructive sleep apnea syndrome, pulmonary hypertension, and history of Watkins's esophagus. The patient scheduled for discharge home today. Recommend patient be sent home with Medrol Dosepak, Mucinex Sanam KULKARNI Zyrtec. The patient will need full pulmonary function tests as outpatient. The patient to follow up with oncologist. Informed the patient to follow up with her office for visit as outpatient. The patient verbalized understanding. Seen and examined with Dr. Reis. Discussed assessment and plan as described above. Thank you for this consult and we will follow with you. Hira Adame APN Debby Reis MD
== END 2018-05-08 15:46 | disposition home health service (06) | DRG 181 ==
LOC: ED 14:50 → ERH 17:45 → 2RNO 04-23 01:18 → OBSVTOIN 04-23 15:59 → 3RNO 05-01 00:01
PROVIDERS: ADMIT Family Medicine; ATTEND Family Medicine
DX: C78.00 Secondary malignant neoplasm of unspecified lung (principal); N39.0 Urinary tract infection, site not specified; T83.512A Infection and inflammatory reaction due to nephrostomy catheter, initial encounter; I50.32 Chronic diastolic (congestive) heart failure; I13.0 Hypertensive heart and chronic kidney disease with heart failure and stage 1 through stage 4 chronic kidney disease, or unspecified chronic kidney disease; I87.1 Compression of vein; C53.9 Malignant neoplasm of cervix uteri, unspecified; I25.10 Atherosclerotic heart disease of native coronary artery without angina pectoris; J44.9 Chronic obstructive pulmonary disease, unspecified; N18.3 Chronic kidney disease, stage 3 (moderate); D63.8 Anemia in other chronic diseases classified elsewhere; I27.20 Pulmonary hypertension, unspecified; G47.33 Obstructive sleep apnea (adult) (pediatric); R31.9 Hematuria, unspecified; Z86.73 Personal history of transient ischemic attack (TIA), and cerebral infarction without residual deficits; Z91.19 Patient's noncompliance with other medical treatment and regimen; Z87.891 Personal history of nicotine dependence; Z92.21 Personal history of antineoplastic chemotherapy; Z92.3 Personal history of irradiation; Z93.6 Other artificial openings of urinary tract status; B96.20 Unspecified Escherichia coli [E. coli] as the cause of diseases classified elsewhere; R13.19 Other dysphagia; L29.9 Pruritus, unspecified; R21 Rash and other nonspecific skin eruption; R49.0 Dysphonia; E78.5 Hyperlipidemia, unspecified; F32.89 Other specified depressive episodes; I25.2 Old myocardial infarction; I34.1 Nonrheumatic mitral (valve) prolapse

== ENCOUNTER 2018-05-23 11:07 | Outpatient (CLI) | payer MEDICARE, OTHER | END 2018-05-23 11:08 | disposition home or self-care (01) | LOC: RAD 11:07 | DX: R10.9 Unspecified abdominal pain (principal) ==

== ENCOUNTER 2018-05-27 11:37 | Inpatient (IN) | payer MEDICARE, OTHER ==
[2018-05-27] MEDS ORDERED: MAGNESIUM PO ONE (12:48)
[2018-05-27] MEDS ORDERED: Morphine 4 mg/ml ISec IVP STA ×2 (12:48→15:19)
[2018-05-27] MEDS ORDERED: ALUMINUM HYDROXIDE PO ONE (12:48)
[2018-05-27] MEDS ORDERED: DIPHENHYDRAMINE PO ONE (12:48)
[2018-05-27] MEDS ORDERED: LIDOCAINE 2% PO ONE (12:48)
[2018-05-27] MEDS ORDERED: VISCOUS PO ONE (12:48)
[2018-05-27] MEDS ORDERED: Sodium Chloride 0.9% 1,000 ML IV STA (12:56)
--- NOTE | 2018-05-27 13:35 | ED PDOC ---
Arrival/HPI - General Chief Complaint: ENT Problem Time Seen by Provider: 05/27/18 12:10 Historian: Patient - History of Present Illness Narrative History of Present Illness (Text): 05/27/18 12:10 Glenna Kitchen is a 67 year old female, with a past medical history of cervical cancer s/p chemo / radiation, CAD s/p stents, chronic renal insufficiency, h/o nephrostomy tubes, radiation cystitis, psoriasis, GI bleed, and depression, who presents to the emergency department complaining of pain on the left side of her mouth. Patient informs she is unable to eat or swallow liquids secondary to pain and dryness. Patient states some drooling. Patient informs taking oxycodone. Patient denies denies fevers, chills, headache, dizziness, chest pain, shortness of breath, dyspnea on exertion, cough, abdominal pain, nausea, vomiting, diarrhea, back pain, neck pain, or any other complaint. Symptom Onset: Gradual Symptom Course: Unchanged Activities at Onset: Light Context: Home Past Medical History - Provider Review Nursing Documentation Reviewed: Yes - Infectious Disease Hx of Infectious Diseases: None - Tetanus Immunization Tetanus Immunization: Unknown - Reproductive Menopause: Yes - Cardiac Hx Cardiac Disorders: Yes (cad stent x4) Hx Hypertension: Yes Hx Mitral Valve Prolapse: Yes Hx Pacemaker: No - Pulmonary Hx Respiratory Disorders: Yes Hx Asthma: No Hx Bronchitis: Yes Hx Sleep Apnea: Yes - Neurological Hx Neurological Disorder: Yes (tympanic tubes) Hx Dizziness: Yes Hx Transient Ischemic Attacks (TIA): Yes (20yrs ago) - HEENT Hx HEENT Disorder: Yes (glasses) Other/Comment: left tympanic tubes placed - Renal Hx Renal Disorder: Yes Hx Kidney Stones: Yes Hx Renal Failure: Yes Other/Comment: Nephrostomy tubes bilateral, 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 - Endocrine/Metabolic Hx Endocrine Disorders: No - Hematological/Oncological Hx Blood Disorders: Yes Hx Anemia: Yes (WITH BLOOD TRANSFUSION) Hx Cancer: Yes (Cervical with mets) Hx Chemotherapy: Yes (and radiation) Hx Metastasis: Yes (chest mass) - Integumentary Hx Dermatological Disorder: Yes Hx Eczema: Yes Hx Psoriasis: Yes - Musculoskeletal/Rheumatological Hx Musculoskeletal Disorders: Yes (r ankle/ R WRIST FX R/T FALL 06/2015) Hx Falls: No Hx Fractures: Yes (right wrist, right ankle) - Gastrointestinal Hx Gastrointestinal Disorders: Yes (GI bleed) Hx Diverticulitis: Yes Hx Gastroesophageal Reflux: Yes - Genitourinary/Gynecological Hx Genitourinary Disorders: Yes Hx Hematuria: Yes Hx Urinary Tract Infection: Yes Other/Comment: nephrostomy surgery - Psychiatric Hx Psychophysiologic Disorder: Yes Hx Anxiety: Yes Hx Depression: Yes Hx Emotional Abuse: No Hx Physical Abuse: No Hx Substance Use: No - Surgical History Hx Cardiac Catheterization: Yes Hx Coronary Stent: Yes Hx Hysterectomy: Yes Other/Comment: nephrostomy tubes,CARDIAC STENTS ,HYSTERECTOMY,RIGHT ANKLE FX, - Anesthesia Hx Anesthesia: Yes Hx Anesthesia Reactions: Yes (NAUSEA) Hx Malignant Hyperthermia: No - Suicidal Assessment Feels Threatened In Home Enviroment: No Family/Social History - Physician Review Nursing Documentation Reviewed: Yes Family/Social History: No Known Family HX Smoking Status: Former Smoker Hx Alcohol Use: No Hx Substance Use: No Hx Substance Use Treatment: No Allergies/Home Meds Allergies/Adverse Reactions: Allergies No Known Allergies Allergy (Verified 04/12/18 23:20) Home Medications: Home Meds Medication Instructions Recorded Confirmed Oxycodone HCl/Acetaminophen 1 tab PO Q6H PRN 02/12/15 05/23/18 [Percocet 5-325 mg Tablet] Sertraline [Zoloft] 25 mg PO QAM 04/06/15 05/23/18 Ergocalciferol (Vitamin D2) 50,000 iu PO FRI 11/08/15 05/23/18 [Vitamin D2] Tranexamic Acid [Lysteda] 2 tab PO BID 11/08/15 05/23/18 Esomeprazole Magnesium [Nexium] 20 mg PO DAILY 10/23/17 05/23/18 Famotidine [Pepcid] 20 mg PO DAILY 12/23/17 05/23/18 Promethazine HCl/Codeine 1 tsp PO Q6H PRN 03/28/18 05/23/18 [Prometh-Codein 6.25-10 mg/5 ml] Vitamin E 1,000 unit PO DAILY 03/28/18 05/23/18 Clotrimazole [Mycelex Dax] 10 mg MT 5XD 05/23/18 05/23/18 Ondansetron [Zofran] 4 mg PO TID 05/23/18 05/23/18 Review of Systems - Physician Review All systems were reviewed & negative as marked: Yes - Review of Systems Constitutional: absent: Fevers, Night Sweats ENT: TMJ Pain (pain on left side of mouth, unable to eat or swallow liquids. ) Respiratory: absent: SOB, Cough Cardiovascular: absent: Chest Pain, [place] Gastrointestinal: absent: Abdominal Pain, Diarrhea, Nausea, Vomiting Musculoskeletal: absent: Back Pain, Neck Pain Neurological: absent: Headache, Dizziness Physical Exam Vital Signs Reviewed: Yes Vital Signs Temp Pulse Resp BP Pulse Ox 05/27/18 11:56 98 F 107 H 20 111/76 98 Temperature: Afebrile Blood Pressure: Normal Pulse: Tachycardic Respiratory Rate: Normal Appearance: Positive for: Well-Appearing, Non-Toxic, Comfortable Pain Distress: None Mental Status: Positive for: Alert and Oriented X 3 - Systems Exam Head: Present: Atraumatic, Normocephalic Pupils: Present: PERRL Extroacular Muscles: Present: EOMI Conjunctiva: Present: Normal Mouth: Present: Moist Mucous Membranes, Other (fungating mass protruding from the left side of her jaw. ) Neck: Present: Normal Range of Motion Respiratory/Chest: Present: Clear to Auscultation, Good Air Exchange. No: Respiratory Distress, Accessory Muscle Use Cardiovascular: Present: Regular Rate and Rhythm, Normal S1, S2. No: Murmurs Abdomen: No: Tenderness, Distention, Peritoneal Signs Back: Present: Normal Inspection Upper Extremity: Present: Normal Inspection. No: Cyanosis, Edema Lower Extremity: Present: Normal Inspection. No: Edema Neurological: Present: GCS=15, CN II-XII Intact, Speech Normal Skin: Present: Warm, Dry, Normal Color. No: Rashes Psychiatric: Present: Alert, Oriented x 3, Normal Insight, Normal Concentration Medical Decision Making ED Course and Treatment: 05/27/18 12:10 Impression: Glenna Kitchen is a 67 year old female who presents to the emergency department with complaints of pain on the left side of her mouth Differential Diagnosis included but are not limited to: Plan: -- Labs -- Chest X-Ray -- Maalox -- Morphine -- IV Fluids -- IV Insertion -- Reassess and disposition Prior Visits: Notes and results from previous visits were reviewed. Progress Notes: - RAD Interpretation Narrative RAD Interpretations (Text): 05/27/18 15:36 Reviewed Chest X-Ray, shows: FINDINGS: LUNGS: No active pulmonary disease. PLEURA: No significant pleural effusion identified, no pneumothorax apparent. CARDIOVASCULAR: No aortic atherosclerotic calcification present. Normal cardiac size. No pulmonary vascular congestion. OSSEOUS STRUCTURES: No significant abnormalities. VISUALIZED UPPER ABDOMEN: Normal. OTHER FINDINGS: Left-sided PICC line in satisfactory position IMPRESSION: No active disease. Radiology Orders: 05/27/18 12:48 CHEST PORTABLE [RAD] Stat Range Ecologist: Radiologist - Medication Orders Current Medication Orders: Sodium Chloride (Sodium Chloride 0.9%) 1,000 mls @ 999 mls/hr IV .Q1H1M STA Stop: 05/27/18 13:56 Discontinued Medications Al Hydrox/Mg Hydrox/Simethicone 15 ml/Diphenhydramine HCl 75 mg/Lidocaine 10 ml 0 ml PO ONCE ONE Stop: 05/27/18 12:49 Morphine Sulfate (Morphine) 4 mg IVP STAT STA Stop: 05/27/18 12:49 - Scribe Statement The provider has reviewed the documentation as recorded by the Scribevelyn Palomino All medical record entries made by the Scribe were at my direction and personally dictated by me. I have reviewed the chart and agree that the record accurately reflects my personal performance of the history, physical exam, medical decision making, and the department course for this patient. I have also personally directed, reviewed, and agree with the discharge instructions and disposition. Disposition/Present on Arrival - Present on Arrival History of DVT/PE: No History of Uncontrolled Diabetes: No Urinary Catheter: Yes History of Decub. Ulcer: No History Surgical Site Infection Following: None - Disposition
[2018-05-27 13:46] LABS: BASO # 0.01 K/mm3 (0.0-2.0); BASO % 0.3 % (0.0-3.0); EOS # 0.1 (0.0-0.7); EOS % 2.1 % (1.5-5.0); HEMOGLOBIN 9.4 g/dL (12.0-16.0); LYMPH # 0.2 (1.2-3.4); LYMPH % 6.3 % (22.0-35.0); MEAN CELL VOLUME 91.6 fl (80.0-105.0); MEAN CORPUSCULAR HEMOGLOBIN 29.2 pg (25.0-35.0); MEAN CORPUSCULAR HGB CONC 31.9 g/dl (31.0-37.0); MEAN PLATELET VOLUME 9.3 fl (7.0-11.0); MONO # 0.1 (0.1-0.6); MONO % 3.8 % (1.0-6.0); RBC 3.22 10^6/uL (3.5-6.1); RED CELL DISTRIBUTION WIDTH 14.3 % (11.5-14.5); WHITE BLOOD COUNT 2.9 10^3/uL (4.5-11.0)
[2018-05-27 13:59] LABS: ALBUMIN 3.7 g/dL (3.0-4.8); CALCIUM 9.2 mg/dL (8.4-10.5)
[2018-05-27] MEDS ORDERED: Sucralfate 1 gm/10 ml Oral Susp UD PO STA (14:27)
[2018-05-27] MEDS ORDERED: Aluminum Hydroxide/Magnesium 30 ML, DiphenhydrAMINE 75 MG, Lidocaine 2% Viscous 30 ML PO PRN (14:28)
--- NOTE | 2018-05-27 14:35 | RAD ---
Date of service: 05/27/2018 HISTORY: pain COMPARISON: 04/22/2018 FINDINGS: LUNGS: No active pulmonary disease. PLEURA: No significant pleural effusion identified, no pneumothorax apparent. CARDIOVASCULAR: No aortic atherosclerotic calcification present. Normal cardiac size. No pulmonary vascular congestion. OSSEOUS STRUCTURES: No significant abnormalities. VISUALIZED UPPER ABDOMEN: Normal. OTHER FINDINGS: Left-sided PICC line in satisfactory position IMPRESSION: No active disease.
[2018-05-27] MEDS: POLYETHYLENE GLYCOL 3350 17 GM/Dose PACKET PO SCH (18:22)
[2018-05-27] MEDS: Sodium Chloride 0.9% 1,000 ML IV SCH (18:23)
--- NOTE | 2018-05-27 18:50 | CP.PCM.CON ---
<Josie Bowen - Last Filed: 05/27/18 18:59> History of Present Illness - History of Present Illness History of Present Illness: GI Consult for Dr. Sumner Reason for Consultation: Radiation esophagitis Glenna Kitchen is a 67 yo F with PMH of stage 3 cervical cancer s/p chemoradiation, CAD s/p stenting, CKD, h/o nephrostomy tubes, radiation cystitis, psoriasis, depression, and stercoral rectal ulcer is admitted to [facility] for pain on the left side of her mouth. GI was consulted for evaluation of radiation esophagiitis. Patient states that she has dysphagia to solids and liquids for the last year. Patient states that it feels like food gets stuck in her throat and has to cough it up. Pt was seen in [facility] recently 04/2018 for similiar complaints. A esophagram was done and did not reveal and sig abnormalities last admission. Pt has been seeing a ENT for her mouth pain and has a follow-up appt in a few days. Denies CP, SOB, n/v/d, abdominal pain, fever, chills, VALENCIA, or dizziness. PMH: stage 3 cervical cancer s/p chemoradiation, CAD s/p stenting, CKD, h/o nephrostomy tubes, radiation cystitis, psoriasis, depression, and stercoral rectal ulcer Surg: Cardiac stenting x4, bilateral nephrostomy tubes, hysterectomy, ankle ORIF SH: Former heavy smoker, denies EtOH and illicit drug use FHx: Denied GI history ENDo Hx: 10/2017 EGD and colonscopy; EGD short seg barretts Past Patient History - Infectious Disease Hx of Infectious Diseases: None - Tetanus Immunizations Tetanus Immunization: Unknown - Past Medical History & Family History Past Medical History?: Yes - Past Social History Smoking Status: Former Smoker - CARDIAC Hx Cardiac Disorders: Yes (cad stent x4) Hx Hypertension: Yes Hx Mitral Valve Prolapse: Yes Hx Pacemaker: No - PULMONARY Hx Respiratory Disorders: Yes Hx Asthma: No Hx Bronchitis: Yes Hx Sleep Apnea: Yes - NEUROLOGICAL Hx Neurological Disorder: Yes (tympanic tubes) Hx Dizziness: Yes Hx Transient Ischemic Attacks (TIA): Yes (20yrs ago) - HEENT Hx HEENT Problems: Yes (glasses) Other/Comment: left tympanic tubes placed - RENAL Hx Chronic Kidney Disease: Yes Hx Kidney Stones: Yes Hx Renal Failure: Yes Other/Comment: Nephrostomy tubes bilateral, 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 - ENDOCRINE/METABOLIC Hx Endocrine Disorders: No - HEMATOLOGICAL/ONCOLOGICAL Hx Blood Disorders: Yes Hx Anemia: Yes (WITH BLOOD TRANSFUSION) Hx Cancer: Yes (Cervical with mets) Hx Chemotherapy: Yes (and radiation) Hx Metastesis: Yes (chest mass) - INTEGUMENTARY Hx Dermatological Problems: Yes Hx Eczema: Yes Hx Psoriasis: Yes - MUSCULOSKELETAL/RHEUMATOLOGICAL Hx Musculoskeletal Disorders: Yes (r ankle/ R WRIST FX R/T FALL 06/2015) Hx Falls: No Hx Fractures: Yes (right wrist, right ankle) - GASTROINTESTINAL Hx Gastrointestinal Disorders: Yes (GI bleed) Hx Diverticulitis: Yes Hx Gastroesophageal Reflux: Yes - GENITOURINARY/GYNECOLOGICAL Hx Genitourinary Disorders: Yes Hx Hematuria: Yes Hx Urinary Tract Infection: Yes Other/Comment: nephrostomy surgery - PSYCHIATRIC Hx Psychophysiologic Disorder: Yes Hx Anxiety: Yes Hx Depression: Yes Hx Emotional Abuse: No Hx Physical Abuse: No Hx Substance Use: No - SURGICAL HISTORY Hx Cardiac Catheterization: Yes Hx Coronary Stent: Yes Hx Hysterectomy: Yes Other/Comment: nephrostomy tubes,CARDIAC STENTS ,HYSTERECTOMY,RIGHT ANKLE FX, - ANESTHESIA Hx Anesthesia: Yes Hx Anesthesia Reactions: Yes (NAUSEA) Hx Malignant Hyperthermia: No Meds Allergies/Adverse Reactions: Allergies Allergy/AdvReac Type Severity Reaction Status Date / Time No Known Allergies Allergy Verified 05/27/18 21:14 - Medications Medications: Current Medications Aspirin (Ecotrin) 81 mg PO DAILY [facility] Benzocaine/Menthol (Cepacol Sore Throat) 1 devante MT 5XD PRN PRN Reason: Sore Throat Al Hydrox/Mg Hydrox/Simethicone 30 ml/Diphenhydramine HCl 75 mg/Lidocaine 30 ml 0 ml PO Q2H PRN PRN Reason: Mouth/Throat Pain Acyclovir 500 mg/ Sodium (Chloride) 100 mls @ 100 mls/hr IV Q12 [facility]; Protocol Sodium Chloride (Sodium Chloride 0.9%) 1,000 mls @ 85 mls/hr IV .[id number] [facility] Last Admin: 05/27/18 18:23 Dose: 85 mls/hr Montelukast Sodium (Singulair) 10 mg PO HS [facility] Morphine Sulfate (Morphine) 4 mg IVP Q3H PRN PRN Reason: Pain, severe (8-10) Non-Formulary Medication (Tranexamic Acid [Lysteda]) 2 tab PO BID [facility] Ondansetron HCl (Zofran Tab) 4 mg PO Q4H PRN PRN Reason: Nausea/Vomiting Pantoprazole Sodium (Protonix Inj) 40 mg IVP DAILY [facility] Polyethylene Glycol (Miralax) 17 gm PO BID [facility] Last Admin: 05/27/18 18:22 Dose: 17 gm Promethazine HCl/Codeine (Phenergan/Codeine Oral Syrup) 5 ml PO Q6H PRN PRN Reason: Cough and congestion Sertraline HCl (Zoloft) 25 mg PO QAM [facility] Sucralfate (Carafate Oral Susp) 1 gm PO 0630,1130,1630,2200 [facility] Physical Exam - Constitutional Appears: Well, No Acute Distress - Head Exam Head Exam: ATRAUMATIC, NORMOCEPHALIC - Eye Exam Eye Exam: Normal appearance - ENT Exam Additional comments: 1.5cm ulcer on the left side of tongue - Neck Exam Neck exam: Positive for: Normal Inspection - Respiratory Exam Respiratory Exam: Clear to Auscultation Bilateral, NORMAL BREATHING PATTERN. absent: Rales, Rhonchi, Wheezes - Cardiovascular Exam Cardiovascular Exam: REGULAR RHYTHM, +S1, +S2 - GI/Abdominal Exam GI & Abdominal Exam: Normal Bowel Sounds, Soft. absent: Diminished Bowel Sounds, Distended, Firm, Guarding, Hernia, Organomegaly, Rebound, Rigid - Extremities Exam Extremities exam: Negative for: joint swelling, pedal edema - Back Exam Back exam: NORMAL INSPECTION - Neurological Exam Neurological exam: Alert, Oriented x3 - Psychiatric Exam Psychiatric exam: Normal Affect, Normal Mood - Skin Skin Exam: Dry, Intact, Normal Color, Warm Results - Vital Signs Recent Vital Signs: Last Vital Signs Temp 98 F 05/27/18 11:56 Pulse 98 H 05/27/18 15:11 Resp 18 05/27/18 15:11 BP 155/86 H 05/27/18 15:11 Pulse Ox 100 05/27/18 15:11 - Labs Result Diagrams: 05/27/18 13:09 05/27/18 13:09 Labs: Laboratory Results - last 24 hr 05/27/18 05/27/18 13:09 13:09 WBC 2.9 L D RBC 3.22 L Hgb 9.4 L Hct 29.5 L MCV 91.6 MCH 29.2 MCHC 31.9 RDW 14.3 Plt Count 182 MPV 9.3 Neut % (Auto) 87.5 H Lymph % (Auto) 6.3 L [place] % (Auto) 3.8 Eos % (Auto) 2.1 Baso % (Auto) 0.3 Lymph # (Auto) 0.2 L [place] # (Auto) 0.1 Eos # (Auto) 0.1 Baso # (Auto) 0.01 Absolute Neuts (auto) 2.51 ESR 110 H Sodium 135 Potassium 3.7 Chloride 101 Carbon Dioxide 27 Anion Gap 11 BUN 20 Creatinine 1.6 H Est GFR ( Amer) 39 Est GFR (Non-Af Amer) 32 Random Glucose 100 Calcium 9.2 Total Bilirubin 0.3 AST 21 ALT 13 Alkaline Phosphatase 145 H Total Protein 7.2 Albumin 3.7 Globulin 3.6 Albumin/Globulin Ratio 1.0 L Assessment & Plan - Assessment and Plan (Free Text) Assessment: 67 yo F with PMH of stage 4 cervical cancer s/p chemoradiation, CAD s/p stenting, CKD, h/o nephrostomy tubes, radiation cystitis, psoriasis, depression, and stercoral rectal ulcer is admitted for dyspnea on exertion, cough, and complicated UTI. GI consulted due to radiation esophagitis Esophagram (04/15/18) was unremarkable. CT of neck, chest, abdomen, and pelvis (04/12/18) was negative. EGD (10/30/17): Watkins's Esophagus C0M2, gastric stenosis and pylorus Colonoscopy (12/24/17): single ulcer in rectum, limited exam due to poor prep 1. Dysphagia/Odynophagia likely 2/2 radiation therapy? 2. Anemia of chronic disease 3. Stage 4 cervical cancer with metastasis to lung Plan: - will speak to Dr. Sumner in regards to EGD - Soft diet - Cont Maalox -Continue PPI -Pt would benefit from ENT eval of tongue ulceration, can be done as an oupt will D/W Dr. Sumner <Harvey Sumner V - Last Filed: 05/28/18 23:10> Meds - Medications Medications: Current Medications Acetaminophen (Tylenol 325mg Tab) 650 mg PO Q4H PRN PRN Reason: Fever >100.4 F Last Admin: 05/28/18 18:50 Dose: 650 mg Aspirin (Ecotrin) 81 mg PO DAILY [facility] Last Admin: 05/28/18 16:34 Dose: Not Given Benzocaine/Menthol (Cepacol Sore Throat) 1 devante MT 5XD PRN PRN Reason: Sore Throat Last Admin: 05/28/18 21:39 Dose: 1 devante Al Hydrox/Mg Hydrox/Simethicone 30 ml/Diphenhydramine HCl 75 mg/Lidocaine 30 ml 0 ml PO Q2H PRN PRN Reason: Mouth/Throat Pain Last Admin: 05/28/18 14:39 Dose: 15 btl Home Med (Home Med) 2 unit PO BID [facility] Last Admin: 05/28/18 18:48 Dose: 2 unit Acyclovir 500 mg/ Sodium (Chloride) 100 mls @ 100 mls/hr IV Q12 [facility]; Protocol Last Admin: 05/28/18 21:42 Dose: 100 mls/hr Sodium Chloride (Sodium Chloride 0.9%) 1,000 mls @ 100 mls/hr IV .Q10H [facility] Metoprolol Tartrate (Lopressor) 25 mg PO BID [facility] Last Admin: 05/28/18 18:49 Dose: 25 mg Montelukast Sodium (Singulair) 10 mg PO HS [facility] Last Admin: 05/28/18 21:40 Dose: 10 mg Morphine Sulfate (Morphine) 4 mg IVP Q3H PRN PRN Reason: Pain, severe (8-10) Last Admin: 05/28/18 21:55 Dose: 4 mg Ondansetron HCl (Zofran Tab) 4 mg PO Q4H PRN PRN Reason: Nausea/Vomiting Pantoprazole Sodium (Protonix Inj) 40 mg IVP DAILY [facility] Last Admin: 05/28/18 16:29 Dose: Not Given Polyethylene Glycol (Miralax) 17 gm PO BID [facility] Last Admin: 05/28/18 18:49 Dose: 17 gm Promethazine HCl/Codeine (Phenergan/Codeine Oral Syrup) 5 ml PO Q6H PRN PRN Reason: Cough and congestion Last Admin: 05/28/18 16:25 Dose: 5 ml Sertraline HCl (Zoloft) 25 mg PO QAM [facility] Last Admin: 05/28/18 16:33 Dose: Not Given Sucralfate (Carafate Oral Susp) 1 gm PO 0630,1130,1630,2200 [facility] Last Admin: 05/28/18 21:40 Dose: 1 gm Results - Vital Signs Recent Vital Signs: Last Vital Signs Temp 101.3 F H 05/28/18 18:50 Pulse 104 H 05/28/18 18:49 Resp 20 05/28/18 17:37 BP 131/78 05/28/18 18:49 Pulse Ox 95 05/28/18 17:37 - Labs Result Diagrams: 05/28/18 06:20 05/28/18 06:20 Labs: Laboratory Results - last 24 hr 05/28/18 05/28/18 06:20 06:20 WBC 2.7 L RBC 3.15 L Hgb 9.1 L Hct 29.3 L MCV 93.0 MCH 28.9 MCHC 31.1 RDW 14.6 H Plt Count 187 MPV 9.6 Neut % (Auto) 84.3 H Lymph % (Auto) 8.6 L [place] % (Auto) 4.5 Eos % (Auto) 2.2 Baso % (Auto) 0.4 Lymph # (Auto) 0.2 L [place] # (Auto) 0.1 Eos # (Auto) 0.1 Baso # (Auto) 0.01 Absolute Neuts (auto) 2.27 Sodium 139 Potassium 3.6 Chloride 105 Carbon Dioxide 27 Anion Gap 11 BUN 16 Creatinine 1.4 H Est GFR ( Amer) 45 Est GFR (Non-Af Amer) 38 Random Glucose 94 Calcium 8.9 Magnesium 2.5 H Attending/Attestation - Attestation I have personally seen and examined this patient.: Yes I have fully participated in the care of the patient.: Yes I have reviewed all pertinent clinical information: Yes Notes (Text): This is an addendum to GI consult report dictated by the GI Fellow.The patient was seen and examined earlier. Medical records, lab studies, imagings were reviewed. Last 24 hours events reviewed. Agreed with the above treatment plan as outlined in GI Fellow 's notes with the addition of the following 05/28/18 23:10
[2018-05-27] MEDS ORDERED: Alum-Mag Hydrox-Simethicone Susp (30 mL) PO SCH (20:00)
[2018-05-27] MEDS: Morphine 4 mg/ml ISec IVP PRN (20:51)
[2018-05-27 21:43] VITALS: BMI 21.9
[2018-05-27] MEDS ORDERED: Influenza Vaccine 60 mcg/0.5 mL SYR (4YR UP) IM ONE (21:43)
[2018-05-27] MEDS ORDERED: Pneumococcal 23-Valent Vaccine IM ONE (21:43)
[2018-05-27] MEDS: TRANEXAMIC ACID 650 MG PO SCH (22:14)
[2018-05-27] MEDS: Sucralfate 1 gm/10 ml Oral Susp UD PO SCH (22:14)
[2018-05-27] MEDS: Acyclovir 500 MG in Sodium Chloride 0.9% 100 ML IV SCH (22:15)
[2018-05-27] MEDS: Benzocaine/Menthol (Cepacol) Lozenge MT PRN (22:15)
[2018-05-27] MEDS: Promethazine/Cod 6.25mg-10mg/5ml Syr UD PO PRN (22:31)
[2018-05-28] MEDS ORDERED: Alum-Mag Hydrox-Simethicone Susp (30 mL) ONE (04:59)
[2018-05-28] MEDS: Morphine 4 mg/ml ISec IVP PRN ×4 (05:14→21:55)
[2018-05-28] MEDS: Sucralfate 1 gm/10 ml Oral Susp UD PO SCH ×4 (06:15→21:40)
[2018-05-28] MEDS: Sodium Chloride 0.9% 1,000 ML IV SCH ×2 (06:18→19:29)
[2018-05-28 06:51] LABS: BASO # 0.01 K/mm3 (0.0-2.0); BASO % 0.4 % (0.0-3.0); EOS # 0.1 (0.0-0.7); EOS % 2.2 % (1.5-5.0); HEMOGLOBIN 9.1 g/dL (12.0-16.0); LYMPH # 0.2 (1.2-3.4); LYMPH % 8.6 % (22.0-35.0); MEAN CORPUSCULAR HEMOGLOBIN 28.9 pg (25.0-35.0); MEAN CORPUSCULAR HGB CONC 31.1 g/dl (31.0-37.0); MEAN PLATELET VOLUME 9.6 fl (7.0-11.0); MONO # 0.1 (0.1-0.6); MONO % 4.5 % (1.0-6.0); RBC 3.15 10^6/uL (3.5-6.1); RED CELL DISTRIBUTION WIDTH 14.6 % (11.5-14.5); WHITE BLOOD COUNT 2.7 10^3/uL (4.5-11.0)
[2018-05-28 07:13] LABS: CALCIUM 8.9 mg/dL (8.4-10.5)
[2018-05-28] MEDS: Promethazine/Cod 6.25mg-10mg/5ml Syr UD PO PRN ×2 (08:31→16:25)
[2018-05-28] MEDS: POLYETHYLENE GLYCOL 3350 17 GM/Dose PACKET PO SCH ×3 (09:12→18:49)
[2018-05-28] MEDS: TRANEXAMIC ACID 650 MG PO SCH ×3 (11:15→18:48)
[2018-05-28] MEDS ORDERED: Barium Sulfate for Susp 98% w/w 340g Bottle ONE (11:56)
--- NOTE | 2018-05-28 12:16 | CP.PCM.PN ---
<Josie Bowen - Last Filed: 05/28/18 12:17> Subjective - Date & Time of Evaluation Date of Evaluation: 05/28/18 Time of Evaluation: 08:00 - Subjective Subjective: PGY5 GI Follow-up Pt seen and examined bedside notes that her pain has improved in her mouth denies any nausea, vomiting or diarrhea ROS: 12 point ROS conducted, neg other than above Objective - Vital Signs/Intake and Output Vital Signs (last 24 hours): Temp Pulse Resp BP Pulse Ox 98.4 F 104 H 20 126/84 98 05/28/18 07:51 05/28/18 07:51 05/28/18 07:51 05/28/18 07:51 05/28/18 07:51 - Medications Medications: Current Medications Aspirin (Ecotrin) 81 mg PO DAILY [facility] Last Admin: 05/28/18 09:12 Dose: 81 mg Benzocaine/Menthol (Cepacol Sore Throat) 1 devante MT 5XD PRN PRN Reason: Sore Throat Last Admin: 05/27/18 22:15 Dose: 1 devante Al Hydrox/Mg Hydrox/Simethicone 30 ml/Diphenhydramine HCl 75 mg/Lidocaine 30 ml 0 ml PO Q2H PRN PRN Reason: Mouth/Throat Pain Home Med (Home Med) 2 unit PO BID [facility] Last Admin: 05/27/18 22:14 Dose: 2 unit Acyclovir 500 mg/ Sodium (Chloride) 100 mls @ 100 mls/hr IV Q12 [facility]; Protocol Last Admin: 05/27/18 22:15 Dose: 100 mls/hr Sodium Chloride (Sodium Chloride 0.9%) 1,000 mls @ 85 mls/hr IV .[id number] [facility] Last Admin: 05/28/18 06:18 Dose: 85 mls/hr Metoprolol Tartrate (Lopressor) 25 mg PO BID [facility] Montelukast Sodium (Singulair) 10 mg PO HS [facility] Last Admin: 05/27/18 22:15 Dose: 10 mg Morphine Sulfate (Morphine) 4 mg IVP Q3H PRN PRN Reason: Pain, severe (8-10) Last Admin: 05/28/18 05:14 Dose: 4 mg Ondansetron HCl (Zofran Tab) 4 mg PO Q4H PRN PRN Reason: Nausea/Vomiting Pantoprazole Sodium (Protonix Inj) 40 mg IVP DAILY [facility] Last Admin: 05/28/18 09:13 Dose: 40 mg Polyethylene Glycol (Miralax) 17 gm PO BID [facility] Last Admin: 05/28/18 09:12 Dose: 17 gm Promethazine HCl/Codeine (Phenergan/Codeine Oral Syrup) 5 ml PO Q6H PRN PRN Reason: Cough and congestion Last Admin: 05/28/18 08:31 Dose: 5 ml Sertraline HCl (Zoloft) 25 mg PO QAM [facility] Last Admin: 05/28/18 09:13 Dose: 25 mg Sucralfate (Carafate Oral Susp) 1 gm PO 0630,1130,1630,2200 [facility] Last Admin: 05/28/18 06:15 Dose: 1 gm - Labs Labs: 05/28/18 06:20 05/28/18 06:20 - Constitutional Appears: Well, No Acute Distress - Head Exam Head Exam: ATRAUMATIC, NORMOCEPHALIC - Eye Exam Eye Exam: Normal appearance - ENT Exam Additional comments: ulcer left base of tongue - Neck Exam Neck Exam: Normal Inspection - Respiratory Exam Respiratory Exam: Clear to Ausculation Bilateral, NORMAL BREATHING PATTERN. absent: Rales, Rhonchi, Wheezes, Respiratory Distress - Cardiovascular Exam Cardiovascular Exam: REGULAR RHYTHM, +S1, +S2 - GI/Abdominal Exam GI & Abdominal Exam: Soft, Normal Bowel Sounds. absent: Guarding, Rigid, Tenderness, Organomegaly, Rebound - Extremities Exam Extremities Exam: absent: Joint Swelling, Pedal Edema - Neurological Exam Neurological Exam: Alert, Awake, Oriented x3 - Psychiatric Exam Psychiatric exam: Normal Affect, Normal Mood - Skin Skin Exam: Dry, Intact, Normal Color, Warm Assessment and Plan - Assessment and Plan (Free Text) Assessment: 67 yo F with PMH of stage 4 cervical cancer s/p chemoradiation, CAD s/p stenting, CKD, h/o nephrostomy tubes, radiation cystitis, psoriasis, depression, and stercoral rectal ulcer is admitted for dyspnea on exertion, cough, and complicated UTI. GI consulted due to radiation esophagitis Esophagram (04/15/18) was unremarkable. CT of neck, chest, abdomen, and pelvis (04/12/18) was negative. EGD (10/30/17): Watkins's Esophagus C0M2, gastric stenosis and pylorus Colonoscopy (12/24/17): single ulcer in rectum, limited exam due to poor prep 1. Dysphagia/Odynophagia likely 2/2 radiation therapy? 2. Anemia of chronic disease 3. Stage 4 cervical cancer with metastasis to lung Plan: - will get a repeat esophagram today and compare to previous - Soft diet - Cont Maalox -Continue PPI D/W Dr. Sumner <Harvey Sumner V - Last Filed: 05/28/18 22:34> Objective - Vital Signs/Intake and Output Vital Signs (last 24 hours): Temp Pulse Resp BP Pulse Ox 101.3 F H 104 H 20 131/78 95 05/28/18 18:50 05/28/18 18:49 05/28/18 17:37 05/28/18 18:49 05/28/18 17:37 - Medications Medications: Current Medications Acetaminophen (Tylenol 325mg Tab) 650 mg PO Q4H PRN PRN Reason: Fever >100.4 F Last Admin: 05/28/18 18:50 Dose: 650 mg Aspirin (Ecotrin) 81 mg PO DAILY [facility] Last Admin: 05/28/18 16:34 Dose: Not Given Benzocaine/Menthol (Cepacol Sore Throat) 1 devante MT 5XD PRN PRN Reason: Sore Throat Last Admin: 05/28/18 21:39 Dose: 1 devante Al Hydrox/Mg Hydrox/Simethicone 30 ml/Diphenhydramine HCl 75 mg/Lidocaine 30 ml 0 ml PO Q2H PRN PRN Reason: Mouth/Throat Pain Last Admin: 05/28/18 14:39 Dose: 15 btl Home Med (Home Med) 2 unit PO BID [facility] Last Admin: 05/28/18 18:48 Dose: 2 unit Acyclovir 500 mg/ Sodium (Chloride) 100 mls @ 100 mls/hr IV Q12 [facility]; Protocol Last Admin: 05/28/18 21:42 Dose: 100 mls/hr Sodium Chloride (Sodium Chloride 0.9%) 1,000 mls @ 100 mls/hr IV .Q10H [facility] Metoprolol Tartrate (Lopressor) 25 mg PO BID [facility] Last Admin: 05/28/18 18:49 Dose: 25 mg Montelukast Sodium (Singulair) 10 mg PO HS [facility] Last Admin: 05/28/18 21:40 Dose: 10 mg Morphine Sulfate (Morphine) 4 mg IVP Q3H PRN PRN Reason: Pain, severe (8-10) Last Admin: 05/28/18 21:55 Dose: 4 mg Ondansetron HCl (Zofran Tab) 4 mg PO Q4H PRN PRN Reason: Nausea/Vomiting Pantoprazole Sodium (Protonix Inj) 40 mg IVP DAILY [facility] Last Admin: 05/28/18 16:29 Dose: Not Given Polyethylene Glycol (Miralax) 17 gm PO BID [facility] Last Admin: 05/28/18 18:49 Dose: 17 gm Promethazine HCl/Codeine (Phenergan/Codeine Oral Syrup) 5 ml PO Q6H PRN PRN Reason: Cough and congestion Last Admin: 05/28/18 16:25 Dose: 5 ml Sertraline HCl (Zoloft) 25 mg PO QAM [facility] Last Admin: 05/28/18 16:33 Dose: Not Given Sucralfate (Carafate Oral Susp) 1 gm PO 0630,1130,1630,2200 [facility] Last Admin: 05/28/18 21:40 Dose: 1 gm - Labs Labs: 05/28/18 06:20 05/28/18 06:20 Attending/Attestation - Attestation I have personally seen and examined this patient.: Yes I have fully participated in the care of the patient.: Yes I have reviewed all pertinent clinical information, including history, physical exam and plan: Yes Notes (Text): This is an addendum to GI progress report dictated by the GI Fellow. The patient was seen and examined earlier. Medical records, lab studies, imagings were reviewed. Last 24 hours events reviewed. Agreed with the above treatment plan as outlined in GI Fellow 's notes with the addition of the following 05/28/18 22:34
--- NOTE | 2018-05-28 12:49 | RAD ---
Date of service: 05/28/2018 HISTORY: Dysphagia. COMPARISON: None. TECHNIQUE: Single contrast esophagram was performed. FINDINGS: Patient tolerated procedure well. ESOPHAGUS: Esophageal mucosa appeared preserved. No evidence of stricture or mass lesion. HIATAL HERNIA: None demonstrated. GASTROESOPHAGEAL REFLUX: Not demonstrated. OTHER FINDINGS: None. IMPRESSION: Unremarkable esophagram.
--- NOTE | 2018-05-28 13:41 | CP.PCM.CON ---
History of Present Illness - History of Present Illness History of Present Illness: 67 year old female with PMH of complicated UTI with E. coli and E. faecalis, in this patient with indwelling right sided nephrostomy tube, history of Urinary tract infection with Klebsiella oxytoca, history of pseudomonas, Klebsiella and Enterococcus faecalis UTI, enterococcus and pseudomonas UTI in the past, cervical cancer S/P chemotherapy and radiation therapy with history or radiation cystitis, history of transient ischemic attack, GERD, coronary artery disease, sleep apnea, history of psoriasis, history of diverticulitis, history of depression, chronic renal failure, S/P nephrostomy tube placement came in to [facility] because of pain in her mouth, mostly on the left side. She has been receiving radiation therapy. She denies nausea or vomiting, has occasional dysphagia, no fever or chills, no headache or dizziness, no chest pain, no cough or rhinorrhea, no abdominal pain, no diarrhea, no dysuria. She also noticed some ulcers in her mouth. Infectious Diseases consult is requested to further evaluate and manage. Review of Systems - Review of Systems All systems: reviewed and no additional remarkable complaints except (as per HPI) Past Patient History - Infectious Disease Hx of Infectious Diseases: None - Tetanus Immunizations Tetanus Immunization: Unknown - Past Medical History & Family History Past Medical History?: Yes - Past Social History Smoking Status: Former Smoker - CARDIAC Hx Cardiac Disorders: Yes (cad stent x4) Hx Hypertension: Yes Hx Mitral Valve Prolapse: Yes Hx Pacemaker: No - PULMONARY Hx Respiratory Disorders: Yes Hx Asthma: No Hx Bronchitis: Yes Hx Sleep Apnea: Yes - NEUROLOGICAL Hx Neurological Disorder: Yes (tympanic tubes) Hx Dizziness: Yes Hx Transient Ischemic Attacks (TIA): Yes (20yrs ago) - HEENT Hx HEENT Problems: Yes (glasses) Other/Comment: left tympanic tubes placed - RENAL Hx Chronic Kidney Disease: Yes Hx Kidney Stones: Yes Hx Renal Failure: Yes Other/Comment: Nephrostomy tubes bilateral, 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 - ENDOCRINE/METABOLIC Hx Endocrine Disorders: No - HEMATOLOGICAL/ONCOLOGICAL Hx Blood Disorders: Yes Hx Anemia: Yes (WITH BLOOD TRANSFUSION) Hx Cancer: Yes (Cervical with mets) Hx Chemotherapy: Yes (and radiation) Hx Metastesis: Yes (chest mass) - INTEGUMENTARY Hx Dermatological Problems: Yes Hx Eczema: Yes Hx Psoriasis: Yes - MUSCULOSKELETAL/RHEUMATOLOGICAL Hx Musculoskeletal Disorders: Yes (r ankle/ R WRIST FX R/T FALL 06/2015) Hx Falls: No Hx Fractures: Yes (right wrist, right ankle) - GASTROINTESTINAL Hx Gastrointestinal Disorders: Yes (GI bleed) Hx Diverticulitis: Yes Hx Gastroesophageal Reflux: Yes - GENITOURINARY/GYNECOLOGICAL Hx Genitourinary Disorders: Yes Hx Hematuria: Yes Hx Urinary Tract Infection: Yes Other/Comment: nephrostomy surgery - PSYCHIATRIC Hx Psychophysiologic Disorder: Yes Hx Anxiety: Yes Hx Depression: Yes Hx Emotional Abuse: No Hx Physical Abuse: No Hx Substance Use: No - SURGICAL HISTORY Hx Cardiac Catheterization: Yes Hx Coronary Stent: Yes Hx Hysterectomy: Yes Other/Comment: nephrostomy tubes,CARDIAC STENTS ,HYSTERECTOMY,RIGHT ANKLE FX, - ANESTHESIA Hx Anesthesia: Yes Hx Anesthesia Reactions: Yes (NAUSEA) Hx Malignant Hyperthermia: No Meds Allergies/Adverse Reactions: Allergies Allergy/AdvReac Type Severity Reaction Status Date / Time No Known Allergies Allergy Verified 05/27/18 21:14 - Medications Medications: Current Medications Aspirin (Ecotrin) 81 mg PO DAILY [facility] Benzocaine/Menthol (Cepacol Sore Throat) 1 devante MT 5XD PRN PRN Reason: Sore Throat Al Hydrox/Mg Hydrox/Simethicone 30 ml/Diphenhydramine HCl 75 mg/Lidocaine 30 ml 0 ml PO Q2H PRN PRN Reason: Mouth/Throat Pain Home Med (Home Med) 2 unit PO BID [facility] Acyclovir 500 mg/ Sodium (Chloride) 100 mls @ 100 mls/hr IV Q12 [facility]; Protocol Sodium Chloride (Sodium Chloride 0.9%) 1,000 mls @ 85 mls/hr IV .[id number] [facility] Last Admin: 05/27/18 18:23 Dose: 85 mls/hr Montelukast Sodium (Singulair) 10 mg PO HS [facility] Morphine Sulfate (Morphine) 4 mg IVP Q3H PRN PRN Reason: Pain, severe (8-10) Last Admin: 05/27/18 20:51 Dose: 4 mg Ondansetron HCl (Zofran Tab) 4 mg PO Q4H PRN PRN Reason: Nausea/Vomiting Pantoprazole Sodium (Protonix Inj) 40 mg IVP DAILY [facility] Polyethylene Glycol (Miralax) 17 gm PO BID [facility] Last Admin: 05/27/18 18:22 Dose: 17 gm Promethazine HCl/Codeine (Phenergan/Codeine Oral Syrup) 5 ml PO Q6H PRN PRN Reason: Cough and congestion Sertraline HCl (Zoloft) 25 mg PO QAM [facility] Sucralfate (Carafate Oral Susp) 1 gm PO 0630,1130,1630,2200 [facility] Physical Exam - Constitutional Appears: Chronically Ill - Head Exam Head Exam: NORMAL INSPECTION - ENT Exam ENT Exam: Mucous Membranes Moist Additional comments: ulcers noted on tongue, left buccal mucosa, gums on the left side - Neck Exam Neck exam: Negative for: Meningismus - Respiratory Exam Respiratory Exam: Decreased Breath Sounds Additional comments: right sided port in place - Cardiovascular Exam Cardiovascular Exam: +S1, +S2 - GI/Abdominal Exam GI & Abdominal Exam: Soft. absent: Tenderness Results - Vital Signs Recent Vital Signs: Last Vital Signs Temp 98.2 F 05/27/18 19:33 Pulse 97 H 05/27/18 19:33 Resp 20 05/27/18 19:33 BP 141/83 05/27/18 19:33 Pulse Ox 95 05/27/18 19:33 - Labs Result Diagrams: 05/28/18 06:20 05/28/18 06:20 Labs: Laboratory Results - last 24 hr 05/27/18 05/27/18 13:09 13:09 WBC 2.9 L D RBC 3.22 L Hgb 9.4 L Hct 29.5 L MCV 91.6 MCH 29.2 MCHC 31.9 RDW 14.3 Plt Count 182 MPV 9.3 Neut % (Auto) 87.5 H Lymph % (Auto) 6.3 L Woodruff % (Auto) 3.8 Eos % (Auto) 2.1 Baso % (Auto) 0.3 Lymph # (Auto) 0.2 L Woodruff # (Auto) 0.1 Eos # (Auto) 0.1 Baso # (Auto) 0.01 Absolute Neuts (auto) 2.51 ESR 110 H Sodium 135 Potassium 3.7 Chloride 101 Carbon Dioxide 27 Anion Gap 11 BUN 20 Creatinine 1.6 H Est GFR ( Amer) 39 Est GFR (Non-Af Amer) 32 Random Glucose 100 Calcium 9.2 Total Bilirubin 0.3 AST 21 ALT 13 Alkaline Phosphatase 145 H Total Protein 7.2 Albumin 3.7 Globulin 3.6 Albumin/Globulin Ratio 1.0 L Assessment & Plan - Assessment and Plan (Free Text) Plan: Assessment buccal, oral ulcer, R/O related to radiation, R/O HSV, R/O aphthous ulcers S/P complicated UTI with E. coli and E. faecalis, in this patient with indwelling right sided nephrostomy tube presenting with hematuria history of Urinary tract infection with Klebsiella oxytoca history of pseudomonas, Klebsiella and Enterococcus faecalis UTI enterococcus and pseudomonas UTI in the past cervical cancer S/P chemotherapy and radiation therapy with history or radiation cystitis history of transient ischemic attack GERD coronary artery disease sleep apnea history of psoriasis history of diverticulitis history of depression chronic renal failure S/P nephrostomy tube placement Plan started patient on Acyclovir and will monitor clinical response follow up recommendations of GI will monitor clinically
--- NOTE | 2018-05-28 13:44 | CP.PCM.APN ---
Subjective - Date & Time of Evaluation Date of Evaluation: 05/28/18 Time of Evaluation: 11:00 - Subjective Subjective: Pt. seen and examined. States has some throat pain , but tolerated eating breakfast this morning without difficulty, denied shortness of breath. Awaiting esophogram. Objective - Vital Signs/Intake and Output Vital Signs (last 24 hours): Temp Pulse Resp BP Pulse Ox 98.4 F 104 H 20 126/84 98 05/28/18 07:51 05/28/18 11:18 05/28/18 07:51 05/28/18 11:18 05/28/18 07:51 - Medications Medications: Current Medications Aspirin (Ecotrin) 81 mg PO DAILY [facility] Last Admin: 05/28/18 09:12 Dose: 81 mg Benzocaine/Menthol (Cepacol Sore Throat) 1 devante MT 5XD PRN PRN Reason: Sore Throat Last Admin: 05/27/18 22:15 Dose: 1 devante Al Hydrox/Mg Hydrox/Simethicone 30 ml/Diphenhydramine HCl 75 mg/Lidocaine 30 ml 0 ml PO Q2H PRN PRN Reason: Mouth/Throat Pain Home Med (Home Med) 2 unit PO BID [facility] Last Admin: 05/28/18 11:15 Dose: 2 unit Acyclovir 500 mg/ Sodium (Chloride) 100 mls @ 100 mls/hr IV Q12 [facility]; Protocol Last Admin: 05/27/18 22:15 Dose: 100 mls/hr Sodium Chloride (Sodium Chloride 0.9%) 1,000 mls @ 85 mls/hr IV .[id number] [facility] Last Admin: 05/28/18 06:18 Dose: 85 mls/hr Metoprolol Tartrate (Lopressor) 25 mg PO BID [facility] Montelukast Sodium (Singulair) 10 mg PO HS [facility] Last Admin: 05/27/18 22:15 Dose: 10 mg Morphine Sulfate (Morphine) 4 mg IVP Q3H PRN PRN Reason: Pain, severe (8-10) Last Admin: 05/28/18 05:14 Dose: 4 mg Ondansetron HCl (Zofran Tab) 4 mg PO Q4H PRN PRN Reason: Nausea/Vomiting Pantoprazole Sodium (Protonix Inj) 40 mg IVP DAILY [facility] Last Admin: 05/28/18 09:13 Dose: 40 mg Polyethylene Glycol (Miralax) 17 gm PO BID [facility] Last Admin: 05/28/18 09:12 Dose: 17 gm Promethazine HCl/Codeine (Phenergan/Codeine Oral Syrup) 5 ml PO Q6H PRN PRN Reason: Cough and congestion Last Admin: 05/28/18 08:31 Dose: 5 ml Sertraline HCl (Zoloft) 25 mg PO QAM [facility] Last Admin: 05/28/18 09:13 Dose: 25 mg Sucralfate (Carafate Oral Susp) 1 gm PO 0630,1130,1630,2200 [facility] Last Admin: 05/28/18 06:15 Dose: 1 gm - Labs Labs: 05/28/18 06:20 05/28/18 06:20 - Constitutional Appears: Non-toxic - Head Exam Head Exam: NORMOCEPHALIC - Eye Exam Eye Exam: Normal appearance - Neck Exam Neck Exam: Full ROM - Respiratory Exam Respiratory Exam: NORMAL BREATHING PATTERN - Cardiovascular Exam Cardiovascular Exam: REGULAR RHYTHM - GI/Abdominal Exam GI & Abdominal Exam: Soft, Normal Bowel Sounds - Rectal Exam Rectal Exam: Deferred - Exam Exam: absent: Circumcision, NORMAL INSPECTION, Scrotal Swelling, Testicular Tenderness, Uretheral Discharge, Testicular Vertical Lie, Bladder Distension External exam: absent: Ecchymosis, Erythema, Lacerations, Lesions, NORMAL EXTERNAL EXAM, Swelling Speculum exam: absent: Cervical Discharge, Erythema, Foreign Body, Laceration, NORMAL SPECULUM EXAM, Tissue, Vaginal Bleeding, Vaginal Discharge Bimanual exam: absent: Adenexal Mass, Adnexal, Cervical Motion Tendernes, NORMAL BIMANUAL EXAM, Uterine Enlargement, Uterine Tenderness - Extremities Exam Extremities Exam: Full ROM - Back Exam Back Exam: Full ROM, NORMAL INSPECTION - Neurological Exam Neurological Exam: Oriented x3 - Psychiatric Exam Psychiatric exam: Agitated, Anxious - Skin Skin Exam: Dry, Intact, Normal Color, Warm Assessment and Plan - Assessment and Plan (Free Text) Assessment: Impressions Chest X-Ray 05/27/18 12:48 IMPRESSION: No active disease. Esophagus X-Ray 05/28/18 17:58 IMPRESSION: Unremarkable esophagram. Assessment: 67 yo F with PMH of stage 3 cervical cancer s/p chemoradiation, CAD s/p stenting, CKD, h/o nephrostomy tubes, radiation cystitis, psoriasis, depression, and stercoral rectal ulcer is admitted [place] [facility] for pain on the left side of her mouth, throat pain and difficulty with eating, drinking. Plan: 1. Dysphagia Maybe r/t radiation esophagitis, or tongue ulcer esophogram neg for stricture. Advance diet to soft per PMD. 2. Cercival CA with mets to lung, right main bronchus with severe narrowing. recs as per oncology. 3. CKD, with b/l nephrostomy tubes, draining clear yellow urine. will continue to monitor clinical status
[2018-05-28] MEDS: Aluminum Hydroxide/Magnesium 30 ML, DiphenhydrAMINE 75 MG, Lidocaine 2% Viscous 30 ML PO PRN (14:39)
[2018-05-28] MEDS: Acyclovir 500 MG in Sodium Chloride 0.9% 100 ML IV SCH ×2 (16:28→21:42)
[2018-05-28] MEDS ORDERED: Vancomycin 500mg in NS 500 MG/100 ML BAG IVPB STA (17:58)
--- NOTE | 2018-05-28 18:48 | RAD ---
Date of service: 05/28/2018 HISTORY: Fever COMPARISON: [id number]. FINDINGS: LUNGS: No active pulmonary disease. PLEURA: No significant pleural effusion identified, no pneumothorax apparent. CARDIOVASCULAR: No atherosclerotic calcification present PICC line in satisfactory position unchanged. OSSEOUS STRUCTURES: No significant abnormalities. VISUALIZED UPPER ABDOMEN: Normal. OTHER FINDINGS: None. IMPRESSION: No active disease. No significant interval change compared to the prior examination(s).
--- NOTE | 2018-05-28 19:33 | CON ---
DATE: 05/28/2018 CARDIOLOGY CONSULTATION REASON FOR CONSULTATION: Admit with failure to thrive, status post chemo, history of cardiac evaluation. BRIEF CLINICAL HISTORY: A 67-year-old female with past medical history of cervical cancer, status post vesicovaginal fistula, status post chemo; history of coronary artery disease, status post stent; history of renal insufficiency, secondary to obstructive uropathy; status post bilateral nephrostomy, status post radiation, recurrence of mass in the lung, status post radiation. Now, the patient developed mouth ulcers admitted here and failure to thrive. Cardiology consult was called for history of cardiac stent followup and evaluation. Denies any chest pain, denies any shortness of breath, or any palpitation. Though, the patient was complaining last time of the chest pain secondary to recurrent mass in the lung, but no further episode of chest pain. 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 PREVIOUS CARDIAC WORKUP: As follows; the patient had a stress test on 05/15/2016 that is equivocal, cannot rule out the shifting position of the breast versus ischemia, ejection fraction 63%, dated 05/15/2016. History of last echo done on 04/14/2018, that shows ejection fraction 55% to 60%, [id number] mitral regurgitation, mild tricuspid regurgitation, RV systolic pressure of 49, mild pulmonary hypertension, and history of PTCA in the past. Cardiac catheterization was not proceeded after the equivocal stress test because of underlying malignancy and the patient remained asymptomatic, refused this couple of times cardiac catheterization. The patient became neutropenic as well because of the chemo and still not willing for further invasive cardiac workup, now currently on chemo. SOCIAL HISTORY: Denies any history of alcohol abuse. CURRENT MEDICATIONS: The patient is taking tranexamic acid, vitamin E, Colace, ascorbic acid, Zoloft, codeine, mouthwash, benzocaine, Tessalon Perles, clotrimazole, and Zoloft. REVIEW OF SYSTEMS: As per HPI. PHYSICAL EXAMINATION: GENERAL: Height of the patient is 5 feet 6 inches, weight of the patient 136 pounds, and body mass index 22 kg/m2. VITAL SIGNS: Temperature afebrile, heart rate 104, and blood pressure 126/84. HEENT: PERRLA. Extraocular muscles are intact. NECK: Supple. No carotid bruit or thyromegaly. CHEST: Clear to auscultation. HEART: S1 and S2, regular. ABDOMEN: Soft. EXTREMITIES: Clubbing and cyanosis, negative. LABORATORY DATA: Blood workup as follows; WBC 2.7, hemoglobin 9.8, hematocrit 29.3, and platelet count 187. Chemistry shows sodium 139, potassium 3.6, chloride 105, carbon dioxide 27, anion gap of 11, BUN 16, and creatinine 1.4. IMPRESSION AND PLAN: A 67-year-old female with past medical history significant for coronary artery disease, status post stent in the past; history of metastatic cervical cancer; history of vesicovaginal fistula; history of genitourinary bleed in the past, now had metastasis to the lung with external compression of the bronchial tree. Last time, the patient of the chest consecutive to compression of the lung, lot of phlegm; now the patient had recently chemo esophagitis with radiation and aphthous ulcer in the mouth secondary to radiation and chemo. The patient last time here had MUGA scan done dated 05/01/2018, that shows calculated ejection fraction of 62% preserved dated 05/01/2018, history of vesicovaginal fistula, history of genitourinary bleed in the past, history of coronary artery disease in the past, history of last echo preserved LV function, history of stress test in 2017 that was equivocal, cardiac catheterization not proceeded because of malignancy of the chemo and thrombocytopenia as well as patient asymptomatic, not willing for surgery. So far the patient is asymptomatic from Cardiology point of view but she is tachycardic. We will start low dose of beta-theodore. Monitor closely with TSH. We will follow with you. Thank you Dr. Ford for providing us the opportunity in taking care of the patient, Glenna Kitchen, so far the patient is cleared from cardiology point of view to get chemo and radiation, because she is asymptomatic. We will monitor electrolytes and we will follow with you. Debby Oliva MD
[2018-05-28] MEDS: Benzocaine/Menthol (Cepacol) Lozenge MT PRN (21:39)
[2018-05-28] MEDS ORDERED: DiphenhydrAMINE 50 mg/ml Inj IVP ONE (23:49)
--- NOTE | 2018-05-29 02:16 | HP ---
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 The patient completed was supposed to finish the cycle by this week when she got admitted through the emergency room with progressive dysphagia, inability to keep liquids or solids secondary to pain and drainage. The patient states she has some drooling. She has been taking oxycodone, but has been difficult for her to take any pills as she feels she is choking on it. The patient has some difficulty along with the pain and swallowing foods and tablets. She denies any fever, chills, headache, dizziness, chest pain, shortness of breath, or dyspnea on exertion. The patient does not have any significant cough at this time. Denies any history of abdominal pain, nausea, vomiting, diarrhea, back pain, neck pain, or any other complaints. Symptoms started getting progressively worse since she had her last treatment with chemotherapy in the outpatient clinic and has been progressively worsening over the past 48 hours. PAST MEDICAL HISTORY: Significant for the fact that the patient has stage IV recurrent carcinoma of the cervix. The patient documented to have recurrence in the mediastinum for which the patient underwent CT-guided biopsy following which she was started on palliative radiation through the mediastinum along with the patient has been started on systemic chemotherapy as well. The patient has a very strong history of coronary artery disease with more than [address]. The patient also has bilateral nephrostomy secondary to ureteric obstruction as a level of the bladder related to chronic radiation cystitis from treatment with combined chemoradiation given 8 years ago. The patient has also had chronic bleeding from the bladder requiring embolization and the patient has had urinary diversion, but does not show any bleed constantly from the bladder. She is also taking tranexamic acid to minimize the amount of bleeding from the bladder and also bleeding through the nephrostomy tubes. The patient still required Percocet p.r.n. for pain, more recently with Crohn's disease. The patient had been having hemoptysis, coughing, and difficulty swallowing or at least a coughing and hemoptysis appears to be improved, swallowing has deteriorated over the last several days. REVIEW OF SYSTEMS: A 12-system review of systems was done, which were all negative except for what is mentioned in the HPI. SOCIAL HISTORY: The patient is a former smoker, nonalcohol user and does not use subjectively any medications for recreation. ALLERGIES: THE PATIENT HAS NO KNOWN ALLERGIES. HOME MEDICATIONS: Consists of oxycodone 5/325 one tablet every 6 hours p.r.n., vitamin D 50,000 units once a week, sertraline, Zoloft 25 mg p.o. daily, esomeprazole, Nexium 20 mg daily, tranexamic acid 2 tablets 650 mg b.i.d., promethazine with codeine 1 teaspoon every 6 hours p.r.n. for cough, famotidine 20 mg p.o. daily, vitamin E 1000 units p.o. daily, Mycelex Dax to be sucked four times a day, and Zofran 4 mg p.o. t.i.d. p.r.n. PHYSICAL EXAMINATION: VITAL SIGNS: T-max is 98.4, pulse is 107, respirations 20, blood pressure 111/76, and pulse ox is 98% on room air. HEENT: Head is normocephalic and atraumatic. Conjunctivae pale. Sclerae anicteric. Pupils are equally reactive to light and accommodation. Temporal muscle wasting is noted. Examination of the oropharynx reveals poor dentition. No oropharyngeal lesions are noted. Tongue is coated and dry. NECK: Supple. There is no adenopathy. LUNGS: Clear to percussion and auscultation. Good air exchange. No accessory muscles are noted and used. CARDIOVASCULAR: Reveals S1 and S2 to be normal. No gallop or murmur is heard. ABDOMEN: Soft and nontender. No rebound, rigidity, or guarding is noted. BACK: Reveals to be normal to inspection and palpation. No back pain is noted. EXTREMITIES: Upper and lower extremities reveal no cyanosis, clubbing or edema. NEUROLOGICAL: Reveals higher functions to be normal. No focal deficits are noted. SKIN: Skin turgor is decreased. No skin lesions are noted. Skin is dry. PSYCHIATRIC: The patient's affect is normal, even though she is apprehensive and sometimes gets very agitated and upset and has normal concentration. ASSESSMENT, NOTES, AND PLAN: The patient's labs were reviewed. Chest x-ray was reviewed. The patient is going to be admitted for IV hydration. The patient is going to be seen by GI, ID and Cardiology. They are going to start empirically in addition to the IV fluids, on IV acyclovir along with oral concussion of magic mouthwash, which is a mixture of Maalox, Benadryl and lidocaine along with oral Carafate. Plan is to set up the patient for at least a barium swallow in the a.m. after being seen by GI to get him a better idea of the understanding of the esophagus to make sure that the patient does not have esophageal stricture or mechanical obstruction to the esophagus as a sequela of the treatment or from the result of cancer itself. We also plan to get a CAT scan of the chest to determine the outcome of the treatment so far and see which direction we are progressing. The patient is being assured that with this combination of treatment, hopefully she starts feeling better. Zovirax has been started as more than 50% of the patient who complete radiation are very prone for herpetic infections especially when they have painful odynophagia. Routine orders have been written and the patient's labs will be monitored very carefully over the next 48 to 72 hours. Routine post-exam instructions have been given to the patient. Time spent with the patient greater than 90 minutes correlating all the fact, discussing with the various consultants and reviewing the x-rays with the patient. Gudelia Ford MD
[2018-05-29] MEDS: Sodium Chloride 0.9% 1,000 ML IV SCH ×2 (02:37→05:59)
[2018-05-29] MEDS: Promethazine/Cod 6.25mg-10mg/5ml Syr UD PO PRN (02:38)
[2018-05-29] MEDS: Morphine 4 mg/ml ISec IVP PRN ×5 (02:38→23:56)
[2018-05-29] MEDS: Sucralfate 1 gm/10 ml Oral Susp UD PO SCH ×4 (05:29→21:39)
[2018-05-29 06:44] LABS: EOS # 0.1 (0.0-0.7); EOS % 2.4 % (1.5-5.0); HEMOGLOBIN 8.2 g/dL (12.0-16.0); LYMPH # 0.3 (1.2-3.4); LYMPH % 13.9 % (22.0-35.0); MEAN CELL VOLUME 92.7 fl (80.0-105.0); MEAN CORPUSCULAR HEMOGLOBIN 28.7 pg (25.0-35.0); MEAN CORPUSCULAR HGB CONC 30.9 g/dl (31.0-37.0); MEAN PLATELET VOLUME 9.6 fl (7.0-11.0); MONO # 0.1 (0.1-0.6); MONO % 6.3 % (1.0-6.0); RBC 2.86 10^6/uL (3.5-6.1); RED CELL DISTRIBUTION WIDTH 14.6 % (11.5-14.5); WHITE BLOOD COUNT 2.1 10^3/uL (4.5-11.0)
[2018-05-29 07:16] LABS: ALB/GLOB RATIO 0.9 (1.1-1.8); ALBUMIN 3.2 g/dL (3.0-4.8); CALCIUM 8.8 mg/dL (8.4-10.5)
[2018-05-29] MEDS: TRANEXAMIC ACID 650 MG PO SCH ×2 (09:16→17:27)
[2018-05-29] MEDS: Aluminum Hydroxide/Magnesium 30 ML, DiphenhydrAMINE 75 MG, Lidocaine 2% Viscous 30 ML PO PRN ×2 (09:17→17:28)
[2018-05-29] MEDS: Benzocaine/Menthol (Cepacol) Lozenge MT PRN ×2 (09:19→17:26)
[2018-05-29] MEDS: POLYETHYLENE GLYCOL 3350 17 GM/Dose PACKET PO SCH ×2 (09:20→17:27)
[2018-05-29] MEDS: Acyclovir 500 MG in Sodium Chloride 0.9% 100 ML IV SCH ×2 (09:59→23:58)
[2018-05-29] MEDS ORDERED: Potassium Chloride 20 mEq/15 ml LIQ UD PO STA (10:18)
--- NOTE | 2018-05-29 12:34 | CP.PCM.PN ---
<Josie Bowen - Last Filed: 05/29/18 12:35> Subjective - Date & Time of Evaluation Date of Evaluation: 05/29/18 Time of Evaluation: 07:00 - Subjective Subjective: PGY5 GI Follow-up Pt seen and examined bedside Denies any abd pain tolerating diet +BM No complaints ROS: 12 point ROS conducted, neg other than above Objective - Vital Signs/Intake and Output Vital Signs (last 24 hours): Temp Pulse Resp BP Pulse Ox 98.2 F 88 20 130/80 95 05/29/18 07:59 05/29/18 09:18 05/29/18 07:59 05/29/18 09:18 05/29/18 07:59 Intake and Output: 05/29/18 05/29/18 06:59 18:59 Intake Total 620 Output Total 1 Balance 619 - Medications Medications: Current Medications Acetaminophen (Tylenol 325mg Tab) 650 mg PO Q4H PRN PRN Reason: Fever >100.4 F Last Admin: 05/28/18 18:50 Dose: 650 mg Aspirin (Ecotrin) 81 mg PO DAILY [facility] Last Admin: 05/29/18 09:18 Dose: 81 mg Benzocaine/Menthol (Cepacol Sore Throat) 1 devante MT 5XD PRN PRN Reason: Sore Throat Last Admin: 05/29/18 09:19 Dose: 1 devante Al Hydrox/Mg Hydrox/Simethicone 30 ml/Diphenhydramine HCl 75 mg/Lidocaine 30 ml 0 ml PO Q2H PRN PRN Reason: Mouth/Throat Pain Last Admin: 05/29/18 09:17 Dose: 1 btl Home Med (Home Med) 2 unit PO BID [facility] Last Admin: 05/29/18 09:16 Dose: 2 unit Acyclovir 500 mg/ Sodium (Chloride) 100 mls @ 100 mls/hr IV Q12 [facility]; Protocol Last Admin: 05/29/18 09:59 Dose: 100 mls/hr Sodium Chloride (Sodium Chloride 0.9%) 1,000 mls @ 100 mls/hr IV .Q10H [facility] Last Admin: 05/29/18 05:59 Dose: Not Given Potassium Chloride (Potassium Chloride 20 Meq/100 Ml) 20 meq in 100 mls @ 50 mls/hr IVPB ONCE ONE Stop: 05/29/18 13:53 Metoprolol Tartrate (Lopressor) 25 mg PO BID [facility] Last Admin: 05/29/18 09:18 Dose: 25 mg Montelukast Sodium (Singulair) 10 mg PO HS [facility] Last Admin: 05/28/18 21:40 Dose: 10 mg Morphine Sulfate (Morphine) 4 mg IVP Q3H PRN PRN Reason: Pain, severe (8-10) Last Admin: 05/29/18 09:18 Dose: 4 mg Ondansetron HCl (Zofran Tab) 4 mg PO Q4H PRN PRN Reason: Nausea/Vomiting Last Admin: 05/29/18 09:19 Dose: 4 mg Pantoprazole Sodium (Protonix Inj) 40 mg IVP DAILY [facility] Last Admin: 05/29/18 09:16 Dose: 40 mg Polyethylene Glycol (Miralax) 17 gm PO BID [facility] Last Admin: 05/29/18 09:20 Dose: 17 gm Promethazine HCl/Codeine (Phenergan/Codeine Oral Syrup) 5 ml PO Q6H PRN PRN Reason: Cough and congestion Last Admin: 05/29/18 02:38 Dose: 5 ml Sertraline HCl (Zoloft) 25 mg PO QAM [facility] Last Admin: 05/29/18 09:18 Dose: 25 mg Sucralfate (Carafate Oral Susp) 1 gm PO 0630,1130,1630,2200 [facility] Last Admin: 05/29/18 05:29 Dose: 1 gm Triamcinolone Acetonide (Kenalog 0.1% In Orabase) 1 appl MT Q12 [facility] - Labs Labs: 05/29/18 06:00 05/29/18 06:00 - Constitutional Appears: Well, No Acute Distress - Head Exam Head Exam: ATRAUMATIC, NORMOCEPHALIC - Eye Exam Eye Exam: Normal appearance - ENT Exam ENT Exam: Mucous Membranes Moist, Normal Exam Additional comments: ulcer tongue, left base - Neck Exam Neck Exam: Normal Inspection - Respiratory Exam Respiratory Exam: Clear to Ausculation Bilateral, NORMAL BREATHING PATTERN. absent: Rales, Rhonchi, Wheezes, Respiratory Distress - Cardiovascular Exam Cardiovascular Exam: REGULAR RHYTHM, +S1, +S2 - GI/Abdominal Exam GI & Abdominal Exam: Soft, Normal Bowel Sounds. absent: Distended, Guarding, Rigid, Tenderness, Organomegaly - Extremities Exam Extremities Exam: absent: Joint Swelling, Pedal Edema - Neurological Exam Neurological Exam: Alert, Awake, Oriented x3 - Psychiatric Exam Psychiatric exam: Normal Affect, Normal Mood - Skin Skin Exam: Dry, Intact, Normal Color, Warm Assessment and Plan - Assessment and Plan (Free Text) Assessment: 67 yo F with PMH of stage 4 cervical cancer s/p chemoradiation, CAD s/p stenting, CKD, h/o nephrostomy tubes, radiation cystitis, psoriasis, depression, and stercoral rectal ulcer is admitted for dyspnea on exertion, cough, and complicated UTI. GI consulted due to radiation esophagitis Esophagram (04/15/18) was unremarkable. CT of neck, chest, abdomen, and pelvis (04/12/18) was negative. EGD (10/30/17): Watkins's Esophagus C0M2, gastric stenosis and pylorus Colonoscopy (12/24/17): single ulcer in rectum, limited exam due to poor prep 1. Dysphagia/Odynophagia likely 2/2 radiation therapy? 2. Anemia of chronic disease 3. Stage 4 cervical cancer with metastasis to lung Plan: - repeat esophagram, no sig findings - continue Soft diet - Cont Maalox PRN -Continue PPI Daily -recommend oupt ENT follow-up -can d/c from GI standpoint D/W Dr. Sumner <Harvey Sumner V - Last Filed: 05/29/18 23:48> Objective - Vital Signs/Intake and Output Vital Signs (last 24 hours): Temp Pulse Resp BP Pulse Ox 96.6 F L 87 18 151/97 H 99 05/29/18 21:13 05/29/18 21:13 05/29/18 21:13 05/29/18 21:13 05/29/18 17:14 Intake and Output: 05/29/18 05/30/18 18:59 06:59 Intake Total 365 760 Balance 365 760 - Medications Medications: Current Medications Acetaminophen (Tylenol 325mg Tab) 650 mg PO Q4H PRN PRN Reason: Fever >100.4 F Last Admin: 05/28/18 18:50 Dose: 650 mg Aspirin (Ecotrin) 81 mg PO DAILY [facility] Last Admin: 05/29/18 09:18 Dose: 81 mg Benzocaine/Menthol (Cepacol Sore Throat) 1 devante MT 5XD PRN PRN Reason: Sore Throat Last Admin: 05/29/18 17:26 Dose: 1 devante Al Hydrox/Mg Hydrox/Simethicone 30 ml/Diphenhydramine HCl 75 mg/Lidocaine 30 ml 0 ml PO Q2H PRN PRN Reason: Mouth/Throat Pain Last Admin: 05/29/18 17:28 Dose: 1 btl Home Med (Home Med) 2 unit PO BID [facility] Last Admin: 05/29/18 17:27 Dose: 2 unit Acyclovir 500 mg/ Sodium (Chloride) 100 mls @ 100 mls/hr IV Q12 [facility]; Protocol Last Admin: 05/29/18 09:59 Dose: 100 mls/hr Sodium Chloride (Sodium Chloride 0.9%) 1,000 mls @ 100 mls/hr IV .Q10H [facility] Last Admin: 05/29/18 05:59 Dose: Not Given Metoprolol Tartrate (Lopressor) 25 mg PO BID [facility] Last Admin: 05/29/18 17:27 Dose: 25 mg Montelukast Sodium (Singulair) 10 mg PO HS [facility] Last Admin: 05/29/18 21:39 Dose: 10 mg Morphine Sulfate (Morphine) 4 mg IVP Q3H PRN PRN Reason: Pain, severe (8-10) Last Admin: 05/29/18 20:17 Dose: 4 mg Ondansetron HCl (Zofran Tab) 4 mg PO Q4H PRN PRN Reason: Nausea/Vomiting Last Admin: 05/29/18 09:19 Dose: 4 mg Pantoprazole Sodium (Protonix Inj) 40 mg IVP DAILY [facility] Last Admin: 05/29/18 09:16 Dose: 40 mg Polyethylene Glycol (Miralax) 17 gm PO BID [facility] Last Admin: 05/29/18 17:27 Dose: 17 gm Promethazine HCl/Codeine (Phenergan/Codeine Oral Syrup) 5 ml PO Q6H PRN PRN Reason: Cough and congestion Last Admin: 05/29/18 02:38 Dose: 5 ml Sertraline HCl (Zoloft) 25 mg PO QAM [facility] Last Admin: 05/29/18 09:18 Dose: 25 mg Sucralfate (Carafate Oral Susp) 1 gm PO 0630,1130,1630,2200 [facility] Last Admin: 05/29/18 21:39 Dose: 1 gm Triamcinolone Acetonide (Kenalog 0.1% In Orabase) 1 appl MT Q12 [facility] - Labs Labs: 05/29/18 06:00 05/29/18 06:00 Attending/Attestation - Attestation I have personally seen and examined this patient.: Yes I have fully participated in the care of the patient.: Yes I have reviewed all pertinent clinical information, including history, physical exam and plan: Yes Notes (Text): This is an addendum to GI progress report dictated by the GI Fellow.The patient was seen and examined earlier. Medical records, lab studies, imagings were reviewed. Last 24 hours events reviewed. Agreed with the above treatment plan as outlined in GI Fellow 's notes with the addition of the following 05/29/18 23:48
--- NOTE | 2018-05-29 13:00 | CT ---
Date of service: 05/29/2018 PROCEDURE: CT Chest without contrast HISTORY: assess for poss pneumonia, asp? fever COMPARISON: 05/02/2018 TECHNIQUE: Contiguous axial images were obtained through the chest without intravenous contrast enhancement. Sagittal and coronal reconstructions were performed. Radiation dose: Total exam DLP = 248.77 mGy-cm. This CT exam was performed using one or more of the following dose reduction techniques: Automated exposure control, adjustment of the mA and/or kV according to patient size, and/or use of iterative reconstruction technique. FINDINGS: LUNGS: Clear lungs. Visualized airway clear no evidence of pneumonia MEDIASTINUM: Unremarkable thoracic aorta. No aneurysm. Normal sized heart. Main pulmonary artery unremarkable. No vascular congestion. No change in mediastinal adenopathy Aortic and coronary artery calcification PLEURA: No pleural fluid. No pneumothorax. BONES: No fracture. No destructive lesion. UPPER ABDOMEN: Grossly unremarkable. OTHER FINDINGS: None. IMPRESSION: No evidence of pneumonia
--- NOTE | 2018-05-29 17:19 | CP.PCM.PN ---
Subjective - Date & Time of Evaluation Date of Evaluation: 05/29/18 Time of Evaluation: 10:20 - Subjective Subjective: Swallowing better, less pain in the mouth, no fevers. Objective - Vital Signs/Intake and Output Vital Signs (last 24 hours): Temp Pulse Resp BP Pulse Ox 98.4 F 104 H 20 126/84 98 05/28/18 07:51 05/28/18 11:18 05/28/18 07:51 05/28/18 11:18 05/28/18 07:51 - Medications Medications: Current Medications Aspirin (Ecotrin) 81 mg PO DAILY [facility] Last Admin: 05/28/18 09:12 Dose: 81 mg Benzocaine/Menthol (Cepacol Sore Throat) 1 devante MT 5XD PRN PRN Reason: Sore Throat Last Admin: 05/27/18 22:15 Dose: 1 devante Al Hydrox/Mg Hydrox/Simethicone 30 ml/Diphenhydramine HCl 75 mg/Lidocaine 30 ml 0 ml PO Q2H PRN PRN Reason: Mouth/Throat Pain Home Med (Home Med) 2 unit PO BID [facility] Last Admin: 05/28/18 11:15 Dose: 2 unit Acyclovir 500 mg/ Sodium (Chloride) 100 mls @ 100 mls/hr IV Q12 [facility]; Protocol Last Admin: 05/27/18 22:15 Dose: 100 mls/hr Sodium Chloride (Sodium Chloride 0.9%) 1,000 mls @ 85 mls/hr IV .[id number] [facility] Last Admin: 05/28/18 06:18 Dose: 85 mls/hr Metoprolol Tartrate (Lopressor) 25 mg PO BID [facility] Montelukast Sodium (Singulair) 10 mg PO HS [facility] Last Admin: 05/27/18 22:15 Dose: 10 mg Morphine Sulfate (Morphine) 4 mg IVP Q3H PRN PRN Reason: Pain, severe (8-10) Last Admin: 05/28/18 05:14 Dose: 4 mg Ondansetron HCl (Zofran Tab) 4 mg PO Q4H PRN PRN Reason: Nausea/Vomiting Pantoprazole Sodium (Protonix Inj) 40 mg IVP DAILY [facility] Last Admin: 05/28/18 09:13 Dose: 40 mg Polyethylene Glycol (Miralax) 17 gm PO BID [facility] Last Admin: 05/28/18 09:12 Dose: 17 gm Promethazine HCl/Codeine (Phenergan/Codeine Oral Syrup) 5 ml PO Q6H PRN PRN Reason: Cough and congestion Last Admin: 05/28/18 08:31 Dose: 5 ml Sertraline HCl (Zoloft) 25 mg PO QAM [facility] Last Admin: 05/28/18 09:13 Dose: 25 mg Sucralfate (Carafate Oral Susp) 1 gm PO 0630,1130,1630,2200 [facility] Last Admin: 05/28/18 06:15 Dose: 1 gm - Labs Labs: 05/28/18 06:20 05/28/18 06:20 - Constitutional Appears: Chronically Ill - Head Exam Head Exam: NORMAL INSPECTION - Respiratory Exam Respiratory Exam: Decreased Breath Sounds - Cardiovascular Exam Cardiovascular Exam: +S1, +S2 - GI/Abdominal Exam GI & Abdominal Exam: Soft. absent: Tenderness Assessment and Plan - Assessment and Plan (Free Text) Plan: Assessment buccal, oral ulcer, R/O related to radiation, R/O HSV, R/O aphthous ulcers S/P complicated UTI with E. coli and E. faecalis, in this patient with indwelling right sided nephrostomy tube presenting with hematuria history of Urinary tract infection with Klebsiella oxytoca history of pseudomonas, Klebsiella and Enterococcus faecalis UTI enterococcus and pseudomonas UTI in the past cervical cancer S/P chemotherapy and radiation therapy with history or radiation cystitis history of transient ischemic attack GERD coronary artery disease sleep apnea history of psoriasis history of diverticulitis history of depression chronic renal failure S/P nephrostomy tube placement Plan continue Acyclovir day 2 and will continue to monitor clinical response - once swallowing better, can switch to oral Valtrex to complete 7 days follow up recommendations of GI will continue to monitor clinically
--- NOTE | 2018-05-29 17:38 | PN ---
DATE: 05/29/2018 LOCATION: The patient is in room 360, bed 1. REASON FOR CONSULTATION: Coronary artery disease, status post stent insertion, failure to thrive. BRIEF HISTORY: The patient is a 67-year-old female who has cervical cancer, status post vesicovaginal fistula, status post chemo, history of coronary artery disease, status post stent, history of real insufficiency, status post obstructive uropathy status post bilateral nephrostomy, status post radiation, recurrence of mass in the lung status post radiation. Now, the patient has mouth ulcer, limited hearing with failure to thrive. The patient denies any chest pain, shortness of breath or palpitation. The patient's previous cardiac workup has been mentioned in our consult dated 05/28/[address] Oliva. PHYSICAL EXAMINATION: VITAL SIGNS: Blood pressure 134/79, respirations 20, pulse 88, temperature 98.2. HEENT: Head is normocephalic. Eyes, pupils normal. Conjunctivae slightly pale. NECK: JVP low. Carotids equal. THORAX: AP diameter normal. LUNGS: No significant rales. CARDIOVASCULAR: S1 and S2. ABDOMEN: Soft. Bowel sounds were normal. EXTREMITIES: No clubbing. No cyanosis. LABORATORY DATA: WBC 2.1, hemoglobin 8.2, hematocrit 26.5, platelets 151. Sodium 140, potassium 3.3, BUN 13, creatinine 1.3 and random glucose 91. AST and ALT normal, total protein was normal. DIAGNOSES: Coronary artery disease, history of stent insertion in the past, metastatic cervical cancer, history of vesicovaginal fistula, history of genitourinary bleeding in the past, metastasis to the lungs with external compression of bronchial tree. The patient has history of esophagitis with radiation and aphthous ulcer in the mouth secondary to radiation and chemotherapy. Multigated acquisition scan on 05/01/2018 showed normal ejection fraction of 62%. History of vesicovaginal fistula, genitourinary bleed in the past. History of last echo showed preserved left ventricular function. Stress test on 05/26/2018 was equivocal, but cardiac catheterization was not done because of the patient's general condition with malignancy, thrombocytopenia at that time as well as the patient was asymptomatic. The patient remained asymptomatic from cardiac point of view. The patient also has leukopenia and anemia. PLAN: The patient has been put on metoprolol 25 mg twice a day because patient's heart rate was elevated. The patient is on Carafate 1 g p.o. twice daily, aspirin 81 mg daily. The patient's potassium is low, so 20 mEq in 100 mL intravenous potassium has been given and also she received 20 mEq p.o. stat dose. Protonix 40 mg intravenous daily, Singulair 10 mg at bedtime and intravenous fluid 100 mL an hour, Zoloft 25 mg p.o. every morning, acyclovir 500 mg intravenous every 12 hours. Do SMA-7 in the morning to check with potassium levels and we will follow with you, Debby Peña MD
--- NOTE | 2018-05-30 00:15 | PN ---
DATE: 05/29/2018 ONCOLOGY PROGRESS NOTE LOCATION: Patient is in room 360. bed 1. SUBJECTIVE: This is a 67-year-old female with metastatic stage IV carcinoma of the cervix, current to mediastinum, status post radiation, currently on systemic chemotherapy as an outpatient consisting of Avastin, Carbo/Taxol was admitted to the emergency room with ulcers in the mouth, difficulty in swallowing, and failure to thrive. Patient was admitted through the emergency room and has been treated with a lot of symptomatic medications including Magic Mouthwash, liquid Carafate, and is being started empirically on Acyclovir and Kenalog Orabase for her mouth sores and she is gradually feeling better. Patient's Barium swallow was negative. She has been started on heart healthy diet. Patient had spike of temperature yesterday. She has been started on broad-spectrum antibiotics after blood cultures and procalcitonin were obtained. Urine cultures are also sent. Patient also has bilateral nephrostomies for obstructive uropathy related to her history of cervical cancer. Patient also has history of coronary artery disease with multiple stents. Subjectively, the patient is feeling better today. I did inform the patient that she will be better off going for a CAT scan of the chest to determine what is going on as she had a temperature last night. Chest x-ray did not show much in the form of any infiltrates, so we want to cover all the bases. No nausea. No vomiting. Patient overall feels better since admission. Mouth sores are getting slowly better. PHYSICAL EXAMINATION: VITAL SIGNS: Reveals the patient's vital signs to be stable. Blood pressure is 134/79, T max is , pulse is 88, and O2 sat is 98% on room air. HEAD AND NECK: Head is normocephalic and atraumatic. Conjunctivae pale. Sclerae anicteric. Pupils are equally reactive to light and accommodation. Examination of the oropharynx reveals no oropharyngeal lesions. Patient has poor dentition. Patient has ulcerations in the ventral aspect of her tongue on the left side along with this, she has some ulcerations on the back of her mouth as well and in the buccal area as well. Neck is supple. There is no adenopathy. LUNGS: Reveals to be relatively clear to percussion and auscultation. CARDIOVASCULAR SYSTEM: Reveals PMI to be in the fifth intercostal space inside the midclavicular line. S1 and S2 are normal. No gallop or murmur is heard. ABDOMEN: Soft and nontender. Bowel sounds are present. No rebound, rigidity, or guarding is noted. EXTREMITIES: Reveals no significant cyanosis, clubbing, or edema. LABORATORY DATA: Patient's labs from today were reviewed. Patient's white count of 2.1, hemoglobin is down to 8.2, platelet count is adequate. Chemistries, BUN and creatinine is holding. ASSESSMENT AND PLAN: The patient is going to continue the antibiotics, going to be seen by Infectious Disease. She is going to go for a CAT scan of the chest as we speak. In the meantime, we are going to order Kenalog Orabase for her mouth sores in addition to other medicines she is already on. We are going to type and cross 2 units of blood and transfuse 2 units of packed cells because her hemoglobin is down and patient is a cardiac patient, especially in the phase of chemotherapy keeping the hemoglobin around 10 will be greatly beneficial for the patient. Patient has stage IV metastatic recurrent progressive carcinoma of the cervix with odynophagia related to ulcerations probably herpetic in nature combined chemotherapeutic effects of Avastin, carboplatin, and Taxol. Bilateral nephrostomies with drainage catheters. Patient has coronary artery disease with stents. Now, had a temperature spike for which pulses have been taken. Patient is empirically on antibiotics. We will check blood cultures and check with Infectious Disease before labeling it as systemic inflammatory response syndrome until we know which direction we should proceed. Routine post exam instructions have been given to the patient. Labs for a.m. have been requested. We will check with ID and Pulmonary regarding further directions that we need to take on this patient. Please make a note, this is a complex patient with multiple comorbid medical issues. Time spent with patient is greater than 45 minutes. Gudelia Ford MD
[2018-05-30] MEDS: Triamcinolone 0.1% Orabase TUBE MT SCH ×2 (01:06→09:53)
[2018-05-30] MEDS ORDERED: DiphenhydrAMINE 50 mg/ml Inj IVP ONE (01:36)
[2018-05-30] MEDS: Sodium Chloride 0.9% 1,000 ML IV SCH (03:09)
[2018-05-30 06:35] LABS: BASO # 0.01 K/mm3 (0.0-2.0); BASO % 0.5 % (0.0-3.0); EOS % 1.5 % (1.5-5.0); HEMOGLOBIN 9.1 g/dL (12.0-16.0); LYMPH # 0.3 (1.2-3.4); LYMPH % 14.9 % (22.0-35.0); MEAN CORPUSCULAR HEMOGLOBIN 28.5 pg (25.0-35.0); MONO # 0.2 (0.1-0.6); MONO % 10.3 % (1.0-6.0); RBC 3.19 10^6/uL (3.5-6.1); RED CELL DISTRIBUTION WIDTH 16.4 % (11.5-14.5)
[2018-05-30] MEDS: Sucralfate 1 gm/10 ml Oral Susp UD PO SCH ×2 (07:11→14:05)
[2018-05-30] MEDS: Morphine 4 mg/ml ISec IVP PRN ×3 (07:17→14:13)
[2018-05-30 07:51] LABS: CALCIUM 8.7 mg/dL (8.4-10.5)
[2018-05-30 08:09] VITALS: RESP 20; TEMP 97.9; O2SAT 96
[2018-05-30] MEDS: Benzocaine/Menthol (Cepacol) Lozenge MT PRN (09:51)
[2018-05-30] MEDS: POLYETHYLENE GLYCOL 3350 17 GM/Dose PACKET PO SCH (09:52)
[2018-05-30] MEDS: TRANEXAMIC ACID 650 MG PO SCH (09:59)
[2018-05-30] MEDS: Acyclovir 500 MG in Sodium Chloride 0.9% 100 ML IV SCH (10:00)
[2018-05-30 10:02] VITALS: BP 137/84; PULSE 92
[2018-05-30] MEDS: Promethazine/Cod 6.25mg-10mg/5ml Syr UD PO PRN (12:00)
--- NOTE | 2018-05-30 14:59 | PN ---
DATE: 05/30/2018 LOCATION: The patient is in room 360, bed 1. REASON FOR CONSULTATION: Coronary artery disease, status post stent insertion, failure to thrive. SUBJECTIVE: I went to see the patient today and the patient refused to be examined. She says her heart is okay and she does not want to be examined. So we will sign off and if you need re-consult, please call us and if the patient agrees we will be glad to see her gain. Debby Peña MD
--- NOTE | 2018-05-30 20:45 | CP.PCM.PN ---
Subjective - Date & Time of Evaluation Date of Evaluation: 05/30/18 Time of Evaluation: 11:30 - Subjective Subjective: Patient still has occasional pain on swallowing, no fevers. Objective - Vital Signs/Intake and Output Vital Signs (last 24 hours): Temp Pulse Resp BP Pulse Ox 98.6 F 90 20 132/78 99 05/29/18 17:14 05/29/18 17:14 05/29/18 17:14 05/29/18 17:14 05/29/18 17:14 Intake and Output: 05/29/18 05/29/18 06:59 18:59 Intake Total 620 0 Output Total 1 Balance 619 0 - Medications Medications: Current Medications Acetaminophen (Tylenol 325mg Tab) 650 mg PO Q4H PRN PRN Reason: Fever >100.4 F Last Admin: 05/28/18 18:50 Dose: 650 mg Aspirin (Ecotrin) 81 mg PO DAILY [facility] Last Admin: 05/29/18 09:18 Dose: 81 mg Benzocaine/Menthol (Cepacol Sore Throat) 1 devante MT 5XD PRN PRN Reason: Sore Throat Last Admin: 05/29/18 09:19 Dose: 1 devante Al Hydrox/Mg Hydrox/Simethicone 30 ml/Diphenhydramine HCl 75 mg/Lidocaine 30 ml 0 ml PO Q2H PRN PRN Reason: Mouth/Throat Pain Last Admin: 05/29/18 09:17 Dose: 1 btl Home Med (Home Med) 2 unit PO BID [facility] Last Admin: 05/29/18 09:16 Dose: 2 unit Acyclovir 500 mg/ Sodium (Chloride) 100 mls @ 100 mls/hr IV Q12 [facility]; Protocol Last Admin: 05/29/18 09:59 Dose: 100 mls/hr Sodium Chloride (Sodium Chloride 0.9%) 1,000 mls @ 100 mls/hr IV .Q10H [facility] Last Admin: 05/29/18 05:59 Dose: Not Given Metoprolol Tartrate (Lopressor) 25 mg PO BID [facility] Last Admin: 05/29/18 09:18 Dose: 25 mg Montelukast Sodium (Singulair) 10 mg PO HS [facility] Last Admin: 05/28/18 21:40 Dose: 10 mg Morphine Sulfate (Morphine) 4 mg IVP Q3H PRN PRN Reason: Pain, severe (8-10) Last Admin: 05/29/18 09:18 Dose: 4 mg Ondansetron HCl (Zofran Tab) 4 mg PO Q4H PRN PRN Reason: Nausea/Vomiting Last Admin: 05/29/18 09:19 Dose: 4 mg Pantoprazole Sodium (Protonix Inj) 40 mg IVP DAILY [facility] Last Admin: 05/29/18 09:16 Dose: 40 mg Polyethylene Glycol (Miralax) 17 gm PO BID [facility] Last Admin: 05/29/18 09:20 Dose: 17 gm Promethazine HCl/Codeine (Phenergan/Codeine Oral Syrup) 5 ml PO Q6H PRN PRN Reason: Cough and congestion Last Admin: 05/29/18 02:38 Dose: 5 ml Sertraline HCl (Zoloft) 25 mg PO QAM [facility] Last Admin: 05/29/18 09:18 Dose: 25 mg Sucralfate (Carafate Oral Susp) 1 gm PO 0630,1130,1630,2200 [facility] Last Admin: 05/29/18 13:00 Dose: 1 gm Triamcinolone Acetonide (Kenalog 0.1% In Orabase) 1 appl MT Q12 [facility] - Labs Labs: 05/29/18 06:00 05/29/18 06:00 - Constitutional Appears: Chronically Ill - Head Exam Head Exam: NORMAL INSPECTION - Respiratory Exam Respiratory Exam: Decreased Breath Sounds - Cardiovascular Exam Cardiovascular Exam: +S1, +S2 - GI/Abdominal Exam GI & Abdominal Exam: Soft. absent: Tenderness Assessment and Plan - Assessment and Plan (Free Text) Plan: Assessment buccal, oral ulcer, R/O related to radiation, R/O HSV, R/O aphthous ulcers, slowly improving S/P complicated UTI with E. coli and E. faecalis, in this patient with indwelling right sided nephrostomy tube presenting with hematuria history of Urinary tract infection with Klebsiella oxytoca history of pseudomonas, Klebsiella and Enterococcus faecalis UTI enterococcus and pseudomonas UTI in the past cervical cancer S/P chemotherapy and radiation therapy with history or radiation cystitis history of transient ischemic attack GERD coronary artery disease sleep apnea history of psoriasis history of diverticulitis history of depression chronic renal failure S/P nephrostomy tube placement Plan on Acyclovir day 3 and can switch to oral Valtrex to complete [address] Ford - the patient has positive IgG to pertussis but patient has no cough - observe off antibiotics
--- NOTE | 2018-05-31 02:40 | DS ---
LOCATION: The patient is in Room 360, Bed 1. 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 Last course of therapy was about a week ago. She is admitted to the hospital with profound weakness, progressive dysphagia, difficulty in swallowing, pain in swallowing with mouth sores. The patient was admitted to the hospital, was seen by GI and Infectious Disease. The patient had an upper GI evaluation with a barium swallow, this did not show any mechanical obstruction or aspiration. The patient also had a CAT scan of the chest, which did not show any infiltrates or any other major obstructive symptoms; if anything, the CAT scan showed the mediastinal disease to be slightly better post radiation, which is too soon, but still positive response is seen on the CAT scan. The patient was empirically started on IV fluids. She also received a combination of medicines for her ulcers including oral Magic mouthwash along with Kenalog dental and oral paste to the topical mouth ulcers. Along with this, the patient was empirically started on Zovirax for her mouth sores as they thought it could be herpetic or chemo-RT. The patient's clinical condition improved. She is able to swallow mostly semisolids and liquids for now and she is able to keep food down; before this, she was drooling and she was not able to eat. The patient also had a drop in her H and H and the hemoglobin had gone down to 8.2 and white count had gone down to 2. The patient received 2 units of blood yesterday, platelet count is down to 151,000 and previous platelet count was 185,000. ANC is 1.42. The patient is going to be receiving a dose of Granix today and Granix dose tomorrow. We are going to recheck her blood work on Sunday, chemo is on hold. We are going to reassess for recycling of chemotherapy sometime next week. The patient has been placed on a heart-healthy diet, which is going to be pureed or semisolids for now. Calorie count has been ordered. I have told her to take Ensure or Lights for her nutrition supplement. DISCHARGE MEDICATIONS: Include the following; Carafate 1 g a.c. and at bedtime, Cepacol lozenges as needed, Ecotrin 81 mg daily, tranexamic acid 650 mg b.i.d., triamcinolone hexacetonide, Kenalog 0.1% Orabase topically to be applied every 12 hours to the ulcers in the mouth, metoprolol 25 mg b.i.d., and polyethylene glycol 17 g b.i.d. She is going to take promethazine with codeine 5 mL every 6 hours p.r.n. for cough, pantoprazole 40 mg p.o. daily, Singulair 10 mg p.o. at bedtime, IV's have been discontinued, and Tylenol every 6 hours p.r.n. The patient is going to complete Valtrex 500 mg b.i.d. for the next few days. She is going to continue sertraline 25 mg a.m. The patient will also continue her other medicines that she has at home, which will be ascorbic acid 1000 mg daily, Mycelex 10 mg q.i.d. as needed, and Zofran as needed. CONDITION ON DISCHARGE: Improved. OVERALL PROGNOSIS: Guarded. DISCHARGE DIAGNOSES: Odynophagia, dysphagia post chemotherapy related with herpetic stomatitis and esophagitis subclinical, treated with IV antivirals and clinically improved. The patient had odynophagia and dysphagia, which has been improved. The patient has graduated from little liquids to semi liquids to now on a soft diet and mostly pureed diet for the next 2 weeks until the swallowing improves. Coronary artery disease, status post multiple stents, being followed by Dr. Oliva and Dr. Peña. The patient will also follow up with the radiation oncologist in a couple of weeks. She will continue her Granix as an outpatient and return to see us on Sunday at which time we will make further decisions regarding the treatment plans. DISCHARGE INSTRUCTIONS: Routine post discharge instructions have been given to the patient. Condition on discharge is fair. Overall prognosis is guarded. Family and the patient are cognizant of all the problems that the patient has and which direction we are proceeding. Gudelia Ford MD
== END 2018-05-30 17:04 | disposition home or self-care (01) | DRG 158 ==
LOC: ED 11:37 → ERH 14:30 → 3RNO 16:31
PROVIDERS: ADMIT Family Medicine; ATTEND Family Medicine
PROC: 30233N1 Transfusion of Nonautologous Red Blood Cells into Peripheral Vein, Percutaneous Approach (ICD-10-PCS; principal; 2018-05-29)
DX: B00.2 Herpesviral gingivostomatitis and pharyngotonsillitis (principal); R04.2 Hemoptysis; C78.00 Secondary malignant neoplasm of unspecified lung; K50.90 Crohn's disease, unspecified, without complications; K62.6 Ulcer of anus and rectum; N30.41 Irradiation cystitis with hematuria; Y84.2 Radiological procedure and radiotherapy as the cause of abnormal reaction of the patient, or of later complication, without mention of misadventure at the time of the procedure; R13.12 Dysphagia, oropharyngeal phase; K20.8 Other esophagitis; T45.1X5A Adverse effect of antineoplastic and immunosuppressive drugs, initial encounter; C53.9 Malignant neoplasm of cervix uteri, unspecified; D63.8 Anemia in other chronic diseases classified elsewhere; K22.70 Barrett's esophagus without dysplasia; R62.7 Adult failure to thrive; I25.10 Atherosclerotic heart disease of native coronary artery without angina pectoris; I12.9 Hypertensive chronic kidney disease with stage 1 through stage 4 chronic kidney disease, or unspecified chronic kidney disease; N18.9 Chronic kidney disease, unspecified; I27.20 Pulmonary hypertension, unspecified; N13.9 Obstructive and reflux uropathy, unspecified; L40.9 Psoriasis, unspecified; F32.9 Major depressive disorder, single episode, unspecified; Z86.73 Personal history of transient ischemic attack (TIA), and cerebral infarction without residual deficits; Z95.5 Presence of coronary angioplasty implant and graft; Z87.891 Personal history of nicotine dependence; Z92.3 Personal history of irradiation; Z93.6 Other artificial openings of urinary tract status

== ENCOUNTER 2018-06-01 00:05 | Inpatient (IN) | payer MEDICARE, OTHER ==
[2018-06-01 00:06] VITALS: BMI 21.9
--- NOTE | 2018-06-01 00:44 | ED PDOC ---
Arrival/HPI - General Chief Complaint: GI Problem Time Seen by Provider: 06/01/18 00:23 Historian: Patient - History of Present Illness Narrative History of Present Illness (Text): 06/01/18 00:41 67 year old female, whose past medical history includes stage 3 cervical cancer s/p chemoradiation, CAD s/p stenting, CKD, h/o nephrostomy tubes, radiation cystitis, psoriasis, depression, and stercoral rectal ulcer, presents to the e mergency department complaining of rectal bleeding that began yesterday associated with lightheadedness. Patient reports blood is pouring out in clots. Patient reports simian symptoms in the past. Patient denies any fever, chills, chest pain, shortness of breath, nausea, vomiting, diarrhea, urinary symptoms, back pain, neck pain, headache, or any other complaints. PMD. Dr. Ford GI: Dr. Sumner Time/Duration: 24 hours Symptom Onset: Gradual Symptom Course: Unchanged Activities at Onset: Light Context: Home Past Medical History - Provider Review Nursing Documentation Reviewed: Yes - Infectious Disease Hx of Infectious Diseases: None - Tetanus Immunization Tetanus Immunization: Unknown - Cardiac Hx Cardiac Disorders: Yes (cad stent x4) Hx Hypertension: Yes Hx Mitral Valve Prolapse: Yes Hx Pacemaker: No - Pulmonary Hx Respiratory Disorders: Yes Hx Asthma: No Hx Bronchitis: Yes Hx Sleep Apnea: Yes - Neurological Hx Neurological Disorder: Yes (tympanic tubes) Hx Dizziness: Yes Hx Transient Ischemic Attacks (TIA): Yes (20yrs ago) - HEENT Hx HEENT Disorder: Yes (glasses) Other/Comment: left tympanic tubes placed - Renal Hx Renal Disorder: Yes Hx Kidney Stones: Yes Hx Renal Failure: Yes Other/Comment: Nephrostomy tubes bilateral, 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 - Endocrine/Metabolic Hx Endocrine Disorders: No - Hematological/Oncological Hx Blood Disorders: Yes Hx Anemia: Yes (WITH BLOOD TRANSFUSION) Hx Cancer: Yes (Cervical with mets) Hx Chemotherapy: Yes (and radiation) Hx Metastasis: Yes (chest mass) - Integumentary Hx Dermatological Disorder: Yes Hx Eczema: Yes Hx Psoriasis: Yes - Musculoskeletal/Rheumatological Hx Musculoskeletal Disorders: Yes (r ankle/ R WRIST FX R/T FALL 06/2015) Hx Falls: No Hx Fractures: Yes (right wrist, right ankle) - Gastrointestinal Hx Gastrointestinal Disorders: Yes (GI bleed) Hx Diverticulitis: Yes Hx Gastroesophageal Reflux: Yes - Genitourinary/Gynecological Hx Genitourinary Disorders: Yes Hx Hematuria: Yes Hx Urinary Tract Infection: Yes Other/Comment: nephrostomy surgery - Psychiatric Hx Psychophysiologic Disorder: Yes Hx Anxiety: Yes Hx Depression: Yes Hx Emotional Abuse: No Hx Physical Abuse: No Hx Substance Use: No - Surgical History Hx Cardiac Catheterization: Yes Hx Coronary Stent: Yes Hx Hysterectomy: Yes Other/Comment: nephrostomy tubes,CARDIAC STENTS ,HYSTERECTOMY,RIGHT ANKLE FX, - Anesthesia Hx Anesthesia: Yes Hx Anesthesia Reactions: Yes (NAUSEA) Hx Malignant Hyperthermia: No - Suicidal Assessment Feels Threatened In Home Enviroment: No Family/Social History - Physician Review Nursing Documentation Reviewed: Yes Family/Social History: No Known Family HX Smoking Status: Former Smoker Hx Alcohol Use: No Hx Substance Use: No Hx Substance Use Treatment: No Allergies/Home Meds Allergies/Adverse Reactions: Allergies No Known Allergies Allergy (Verified 05/27/18 21:14) Home Medications: Home Meds Medication Instructions Recorded Confirmed Oxycodone HCl/Acetaminophen 1 tab PO Q6H PRN 02/12/15 05/27/18 [Percocet 5-325 mg Tablet] Sertraline [Zoloft] 25 mg PO QAM 04/06/15 05/27/18 Ergocalciferol (Vitamin D2) 50,000 iu PO FRI 11/08/15 05/27/18 [Vitamin D2] Tranexamic Acid [Lysteda] 2 tab PO BID 11/08/15 05/27/18 Esomeprazole Magnesium [Nexium] 20 mg PO DAILY 10/23/17 05/27/18 Famotidine [Pepcid] 20 mg PO DAILY 12/23/17 05/27/18 Promethazine HCl/Codeine 1 tsp PO Q6H PRN 03/28/18 05/27/18 [Prometh-Codein 6.25-10 mg/5 ml] Vitamin E 1,000 unit PO DAILY 03/28/18 05/27/18 Clotrimazole [Mycelex Dax] 10 mg MT 5XD 05/23/18 05/27/18 Ondansetron [Zofran Tab] 4 mg PO TID 05/23/18 05/27/18 Review of Systems - Physician Review All systems were reviewed & negative as marked: Yes - Review of Systems Constitutional: absent: Fevers, Other (chills) Respiratory: absent: SOB Cardiovascular: absent: Chest Pain Gastrointestinal: Other (rectal bleeding). absent: Abdominal Pain, Diarrhea, Nausea Genitourinary Female: absent: Dysuria, Frequency, Hematuria Musculoskeletal: absent: Back Pain, Neck Pain Neurological: Other (lightheadedness). absent: Headache Physical Exam - Physical Exam Narrative Physical Exam (Text): Gen: VS reviewed, alert, well developed, well nourished, nontoxic, mild distress. ENT: normal pharynx. Eye: EOMI, PERRL. Neck: no JVD, supple, no adenopathy. CV: regular rate, regular rhythm, no rubs, no murmur, no gallops, S1, S2, pulses equal and strong. Pulm: no distress, clear to auscultation, no wheeze, no rhonchi, breath sounds equal, no rales. Abd: soft, nontender, no guarding, no rebound, no rigidity, normal bowel sounds. Rectal: Patient refuses rectal exam with Scribe Alaa present for exam. Ext: no edema. Skin: Pale, no rash, no cyanosis. Psych: responds appropriately to questions, normal affect. Neuro: oriented x 3, CN2-12 intact grossly, motor intact, sensation intact. Vital Signs Reviewed: Yes Vital Signs Temp Pulse Resp BP Pulse Ox 06/01/18 00:24 98.4 F 87 18 138/74 98 Temperature: Afebrile Blood Pressure: Normal Pulse: Regular Respiratory Rate: Normal Medical Decision Making ED Course and Treatment: 06/01/18 00:41 Impression: 67 year old female presents complaining of rectal bleeding and lightheadedness since yesterday. Plan: -- Labs -- EKG -- Reassess and disposition Prior Visits: Notes and results from previous visits were reviewed. Progress Notes: 06/01/18 01:[address] burger, admit to med surg. patient to be admitted for intermittent rectal bleeding. patient refused rectal examination but she reports bloody stools with clots. admit for serial H/H and possible GI consultation. - Lab Interpretations I have reviewed the lab results: Yes - EKG Interpretation Interpreted by ED Physician: Yes Type: 12 lead EKG - Scribe Statement The provider has reviewed the documentation as recorded by the Rosie Salas Provider Garyibe Attestation: All medical record entries made by the Garyibevelyn were at my direction and personally dictated by me. I have reviewed the chart and agree that the record accurately reflects my personal performance of the history, physical exam, medical decision making, and the department course for this patient. I have also personally directed, reviewed, and agree with the discharge instructions and disposition. Disposition/Present on Arrival - Present on Arrival Any Indicators Present on Arrival: No History of DVT/PE: No History of Uncontrolled Diabetes: No Urinary Catheter: Yes (NEPHROSTOMY) History of Decub. Ulcer: No History Surgical Site Infection Following: None - Disposition Have Diagnosis and Disposition been Completed?: Yes Diagnosis: Rectal bleed Disposition: HOSPITALIZED Disposition Time: 01:40 Patient Plan: Admission Condition: STABLE Referrals: Gudelia Ford MD [Primary Care Provider] - Follow up with primary Forms: [email or web address] (Vietnamese)
[2018-06-01 00:55] LABS: BASO # 0.02 K/mm3 (0.0-2.0); BASO % 0.3 % (0.0-3.0); EOS % 0.5 % (1.5-5.0); HEMOGLOBIN 10.4 g/dL (12.0-16.0); LYMPH # 0.5 (1.2-3.4); LYMPH % 7.3 % (22.0-35.0); MEAN CELL VOLUME 89.7 fl (80.0-105.0); MEAN CORPUSCULAR HEMOGLOBIN 29.1 pg (25.0-35.0); MEAN CORPUSCULAR HGB CONC 32.4 g/dl (31.0-37.0); MEAN PLATELET VOLUME 9.7 fl (7.0-11.0); MONO # 0.7 (0.1-0.6); MONO % 10.6 % (1.0-6.0); RBC 3.58 10^6/uL (3.5-6.1); RED CELL DISTRIBUTION WIDTH 15.8 % (11.5-14.5); WHITE BLOOD COUNT 6.2 10^3/uL (4.5-11.0)
[2018-06-01 01:04] LABS: ALBUMIN 3.3 g/dL (3.0-4.8); CALCIUM 9.3 mg/dL (8.4-10.5)
[2018-06-01 01:05] LABS: INR 1.3; PARTIAL THROMBOPLASTIN TIME 37.4 Seconds (26.9-38.3); PROTHROMBIN TIME 14.4 SECONDS (9.4-12.5)
[2018-06-01] MEDS ORDERED: POLYETHYLENE GLYCOL 3350 17 GM/Dose PACKET PO PRN (02:34)
[2018-06-01] MEDS ORDERED: guaiFENesin DM 200 mg-20 mg/10 ml UD PO PRN (02:37)
[2018-06-01] MEDS ORDERED: Morphine 2 mg/ml ISec IVP STA (03:56)
[2018-06-01 06:20] LABS: URINE BILIRUBIN NEGATIVE (NEGATIVE); URINE BLOOD LARGE (NEGATIVE); URINE GLUCOSE (UA) NEGATIVE (NEGATIVE); URINE LEUKOCYTE ESTERASE SMALL Leu/uL (NEGATIVE); URINE PROTEIN 30 mg/dL (<30 mg/dL); URINE UROBILINOGEN 0.2 E.U./dL (<1 E.U./dL)
[2018-06-01 07:35] LABS: BASO # 0.02 K/mm3 (0.0-2.0); BASO % 0.4 % (0.0-3.0); EOS % 0.7 % (1.5-5.0); HEMOGLOBIN 10.1 g/dL (12.0-16.0); LYMPH # 0.4 (1.2-3.4); LYMPH % 7.6 % (22.0-35.0); MEAN CELL VOLUME 89.3 fl (80.0-105.0); MEAN CORPUSCULAR HEMOGLOBIN 28.5 pg (25.0-35.0); MEAN PLATELET VOLUME 9.6 fl (7.0-11.0); MONO # 0.6 (0.1-0.6); MONO % 11.1 % (1.0-6.0); RBC 3.54 10^6/uL (3.5-6.1); RED CELL DISTRIBUTION WIDTH 15.8 % (11.5-14.5); WHITE BLOOD COUNT 5.7 10^3/uL (4.5-11.0)
[2018-06-01 07:38] LABS: URINE APPEARANCE SL CLOUDY (CLEAR); URINE COLOR YELLOW (YELLOW)
[2018-06-01 08:02] LABS: ALB/GLOB RATIO 0.9 (1.1-1.8); ALBUMIN 2.9 g/dL (3.0-4.8); CALCIUM 8.4 mg/dL (8.4-10.5)
[2018-06-01 08:10] LABS: URINE BACTERIA MOD /hpf; URINE EPITHELIAL CELLS 0 - 2 /hpf (0-5); URINE RBC TNTC /hpf (0-2)
[2018-06-01] MEDS: Sucralfate 1 gm/10 ml Oral Susp UD PO SCH ×2 (08:44→17:40)
--- NOTE | 2018-06-01 09:48 | CP.PCM.CON ---
<Jet Musa - Last Filed: 06/01/18 09:48> History of Present Illness - History of Present Illness History of Present Illness: PGY6 GI Fellow Consult Note Patient is a 67yo female with PMHx significant for cervical cancer with metastases to lungs s/p chemoXRT, CAD s/p PCI, CKD with h/o nephrostomy tube placement, radiation cystitis, psoriasis, depression, Watkins's esophagus and stercoral ulceration who presented to the hospital with rectal bleeding. She was recently admitted and D/C two days ago for odynophagia following chemoXRT. She states that she began noticing red blood with stool yesterday and passed dark black clots later on prompting her return to the ED. She refused a rectal examination in the ED and again at bedside this morning as she states they are too painful, likely a result of her known ulceration. Denies any fever, chills. Poor appetite. No nausea, vomiting. 12 system ROS performed and negative except where stated PMHx: See HPI PSHx: Cardiac stenting x4, bilateral nephrostomy tubes, hysterectomy, ankle ORIF FHx: Denies significant family history Social: Former heavy smoker, denies EtOH and illicit drug use Endo: 10/2017 - EGD/colonscopy; EGD short seg barretts; poor prep 12/2017 - Colonoscopy - stercoral ulceration Past Patient History - Infectious Disease Hx of Infectious Diseases: None - Tetanus Immunizations Tetanus Immunization: Unknown - Past Medical History & Family History Past Medical History?: Yes - Past Social History Smoking Status: Former Smoker - CARDIAC Hx Cardiac Disorders: Yes (cad stent x4) Hx Hypertension: Yes Hx Mitral Valve Prolapse: Yes Hx Pacemaker: No - PULMONARY Hx Bronchitis: Yes - NEUROLOGICAL Hx Dizziness: Yes Hx Transient Ischemic Attacks (TIA): Yes (20yrs ago) - HEENT Hx HEENT Problems: Yes (glasses) - RENAL Hx Kidney Stones: Yes Hx Renal Failure: Yes Other/Comment: Nephrostomy tubes bilateral, 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 - ENDOCRINE/METABOLIC Hx Endocrine Disorders: No - HEMATOLOGICAL/ONCOLOGICAL Hx Blood Disorders: Yes Hx Anemia: Yes (WITH BLOOD TRANSFUSION) Hx Cancer: Yes (Cervical with mets) Hx Chemotherapy: Yes (and radiation) Hx Metastesis: Yes (chest mass) - INTEGUMENTARY Hx Psoriasis: Yes - MUSCULOSKELETAL/RHEUMATOLOGICAL Hx Musculoskeletal Disorders: Yes (r ankle/ R WRIST FX R/T FALL 06/2015) Hx Falls: Yes Hx Fractures: Yes (right wrist, right ankle) - GASTROINTESTINAL Hx Gastrointestinal Disorders: Yes (GI bleed) Hx Diverticulitis: Yes Hx Gastroesophageal Reflux: Yes - GENITOURINARY/GYNECOLOGICAL Hx Genitourinary Disorders: Yes Hx Hematuria: Yes Hx Urinary Tract Infection: Yes Other/Comment: nephrostomy surgery - PSYCHIATRIC Hx Psychophysiologic Disorder: Yes Hx Anxiety: Yes Hx Depression: Yes Hx Emotional Abuse: No Hx Physical Abuse: No - SURGICAL HISTORY Hx Cardiac Catheterization: Yes Hx Coronary Stent: Yes Hx Hysterectomy: Yes Other/Comment: nephrostomy tubes,CARDIAC STENTS ,HYSTERECTOMY,RIGHT ANKLE FX, - ANESTHESIA Hx Anesthesia: Yes Hx Anesthesia Reactions: Yes (NAUSEA) Hx Malignant Hyperthermia: No Meds Allergies/Adverse Reactions: Allergies Allergy/AdvReac Type Severity Reaction Status Date / Time No Known Allergies Allergy Verified 05/27/18 21:14 - Medications Medications: Current Medications Aspirin (Aspirin Chewable) 81 mg PO DAILY [facility] Last Admin: 06/01/18 09:16 Dose: 81 mg Guaifenesin/Dextromethorphan (Robitussin Dm) 10 ml PO Q4H PRN PRN Reason: Cough Last Admin: 06/01/18 09:15 Dose: 10 ml Home Med (Home Med) 2 unit PO BID [facility] Metoprolol Tartrate (Lopressor) 25 mg PO BRKDIN [facility] Last Admin: 06/01/18 08:43 Dose: 25 mg Montelukast Sodium (Singulair) 10 mg PO HS [facility] Ondansetron HCl (Zofran Odt) 4 mg PO TID PRN PRN Reason: Nausea/Vomiting Oxycodone/Acetaminophen (Percocet 5/325 Mg Tab) 1 tab PO Q6 PRN PRN Reason: Pain, severe (8-10) Stop: 06/04/18 02:37 Polyethylene Glycol (Miralax) 17 gm PO DAILY PRN PRN Reason: Constipation Last Admin: 06/01/18 09:15 Dose: 17 gm Sertraline HCl (Zoloft) 25 mg PO QAM [facility] Last Admin: 06/01/18 09:16 Dose: 25 mg Sucralfate (Carafate Oral Susp) 1 gm PO ACBD [facility] Last Admin: 06/01/18 08:44 Dose: 1 gm Valacyclovir HCl (Valtrex) 500 mg PO BID [facility] Last Admin: 06/01/18 09:16 Dose: 500 mg Physical Exam - Constitutional Appears: No Acute Distress, Chronically Ill - Eye Exam Eye Exam: EOMI, PERRL - ENT Exam ENT Exam: Mucous Membranes Moist Additional comments: no obvious oral ulceration noted - Respiratory Exam Respiratory Exam: Clear to Auscultation Bilateral. absent: Rales, Rhonchi, Wheezes - Cardiovascular Exam Cardiovascular Exam: RRR, +S1, +S2 - GI/Abdominal Exam GI & Abdominal Exam: Normal Bowel Sounds, Soft. absent: Distended, Firm, Guarding, Organomegaly, Rebound, Rigid, Tenderness - Extremities Exam Extremities exam: Positive for: normal inspection. Negative for: pedal edema - Back Exam Additional comments: nephrostomy tube noted - Neurological Exam Neurological exam: Alert, Oriented x3 - Psychiatric Exam Psychiatric exam: Anxious, Depressed - Skin Skin Exam: Dry, Warm Results - Vital Signs Recent Vital Signs: Last Vital Signs Temp 97.8 F 06/01/18 03:20 Pulse 75 06/01/18 08:43 Resp 18 06/01/18 03:20 BP 154/97 H 06/01/18 08:43 Pulse Ox 98 06/01/18 03:20 - Labs Result Diagrams: 06/01/18 07:00 06/01/18 07:00 Labs: Laboratory Results - last 24 hr 06/01/18 06/01/18 06/01/18 00:39 00:39 00:39 WBC 6.2 D RBC 3.58 Hgb 10.4 L Hct 32.1 L MCV 89.7 MCH 29.1 MCHC 32.4 RDW 15.8 H Plt Count 217 MPV 9.7 Neut % (Auto) 81.3 H Lymph % (Auto) 7.3 L Todd % (Auto) 10.6 H Eos % (Auto) 0.5 L Baso % (Auto) 0.3 Lymph # (Auto) 0.5 L Todd # (Auto) 0.7 H Eos # (Auto) 0.0 Baso # (Auto) 0.02 Absolute Neuts (auto) 5.00 PT 14.4 H INR 1.30 APTT 37.4 Sodium 139 Potassium 3.6 Chloride 105 Carbon Dioxide 23 Anion Gap 14 BUN 13 Creatinine 1.4 H Est GFR ( Amer) 45 Est GFR (Non-Af Amer) 38 Random Glucose 78 Calcium 9.3 Total Bilirubin 0.4 AST 31 ALT 13 Alkaline Phosphatase 190 H Total Protein 6.7 Albumin 3.3 Globulin 3.3 Albumin/Globulin Ratio 1.0 L Urine Color Urine Appearance Urine pH Ur Specific [place] Urine Protein Urine Glucose (UA) Urine Ketones Urine Blood Urine Nitrate Urine Bilirubin Urine Urobilinogen Ur Leukocyte Esterase Urine RBC Urine WBC Ur Epithelial Cells Urine Bacteria Blood Type Blood Type Confirm Antibody Screen BBK History Checked 06/01/18 06/01/18 06/01/18 00:39 06:00 07:00 WBC 5.7 RBC 3.54 Hgb 10.1 L Hct 31.6 L MCV 89.3 MCH 28.5 MCHC 32.0 RDW 15.8 H Plt Count 180 MPV 9.6 Neut % (Auto) 80.2 H Lymph % (Auto) 7.6 L Todd % (Auto) 11.1 H Eos % (Auto) 0.7 L Baso % (Auto) 0.4 Lymph # (Auto) 0.4 L Todd # (Auto) 0.6 Eos # (Auto) 0.0 Baso # (Auto) 0.02 Absolute Neuts (auto) 4.54 PT INR APTT Sodium Potassium Chloride Carbon Dioxide Anion Gap BUN Creatinine Est GFR ( Amer) Est GFR (Non-Af Amer) Random Glucose Calcium Total Bilirubin AST ALT Alkaline Phosphatase Total Protein Albumin Globulin Albumin/Globulin Ratio Urine Color Yellow Urine Appearance Sl cloudy Urine pH 6.0 Ur Specific [place] 1.025 Urine Protein 30 H Urine Glucose (UA) Negative Urine Ketones 15 H Urine Blood Large H Urine Nitrate Negative Urine Bilirubin Negative Urine Urobilinogen 0.2 Ur Leukocyte Esterase Small H Urine RBC Tntc H Urine WBC 10 - 15 H Ur Epithelial Cells 0 - 2 Urine Bacteria Mod Blood Type O POSITIVE Blood Type Confirm Antibody Screen Negative BBK History Checked No verified bt 06/01/18 06/01/18 07:00 07:00 WBC RBC Hgb Hct MCV MCH MCHC RDW Plt Count MPV Neut % (Auto) Lymph % (Auto) Todd % (Auto) Eos % (Auto) Baso % (Auto) Lymph # (Auto) Todd # (Auto) Eos # (Auto) Baso # (Auto) Absolute Neuts (auto) PT INR APTT Sodium 139 Potassium 3.6 Chloride 107 Carbon Dioxide 22 Anion Gap 13 BUN 13 Creatinine 1.3 H Est GFR ( Amer) 49 Est GFR (Non-Af Amer) 41 Random Glucose 61 L Calcium 8.4 Total Bilirubin 0.3 AST 21 ALT 11 Alkaline Phosphatase 170 H Total Protein 6.1 Albumin 2.9 L Globulin 3.2 Albumin/Globulin Ratio 0.9 L Urine Color Urine Appearance Urine pH Ur Specific [place] Urine Protein Urine Glucose (UA) Urine Ketones Urine Blood Urine Nitrate Urine Bilirubin Urine Urobilinogen Ur Leukocyte Esterase Urine RBC Urine WBC Ur Epithelial Cells Urine Bacteria Blood Type Blood Type Confirm O POSITIVE Antibody Screen BBK History Checked Assessment & Plan - Assessment and Plan (Free Text) Assessment: Patient is a 67yo female with PMHx significant for cervical cancer with metastases to lungs s/p chemoXRT, CAD s/p PCI, CKD with h/o nephrostomy tube placement, radiation cystitis, psoriasis, depression, Watkins's esophagus and stercoral ulceration who presented to the hospital with rectal bleeding -Rectal bleeding, refusing examination - presumed 2/2 stercoral ulceration vs radiation proctitis -Short segment Watkins's esophagus without dysplasia -Cervical cancer with metastases to lung -CAD -CKD Plan: -Continue stool softeners - Dulcolax and Miralax to prevent further irritation of rectum -Patient adamantly refusing rectal examination -Start viscous lidocaine for odynophagia presumed 2/2 radiation -If symptoms persist, consider further eval with EGD to R/O opportunistic infection (Fungal, CMV, HSV) -Diet as tolerated - Date & Time Date: 06/01/18 Time: 07:00 <Harvey Sumner V - Last Filed: 06/02/18 11:32> Meds - Medications Medications: Current Medications Acetaminophen (Tylenol 325mg Tab) 650 mg PO Q4H PRN PRN Reason: Pain, Mild (1-3) Aspirin (Ecotrin) 81 mg PO DAILY [facility] Last Admin: 06/01/18 11:23 Dose: Not Given Benzocaine/Menthol (Cepacol Sore Throat) 1 devante MT Q2H PRN PRN Reason: Sore Throat Docusate Sodium (Colace) 100 mg PO BID [facility] Last Admin: 06/01/18 17:42 Dose: Not Given Guaifenesin/Dextromethorphan (Robitussin Dm) 10 ml PO Q4H PRN PRN Reason: Cough Last Admin: 06/01/18 09:15 Dose: 10 ml Home Med (Home Med) 2 unit PO BID [facility] Last Admin: 06/01/18 18:17 Dose: 2 unit Azithromycin (Zithromax 500mg In Ns) 500 mg in 250 mls @ 167 mls/hr IVPB DAILY [facility]; Protocol Stop: 06/06/18 14:31 Last Admin: 06/01/18 16:08 Dose: 167 mls/hr Lidocaine HCl (Lidocaine 2% Viscous) 15 ml PO Q8H PRN PRN Reason: Other Last Admin: 06/01/18 10:45 Dose: 15 ml Metoprolol Tartrate (Lopressor) 25 mg PO BRKDIN [facility] Last Admin: 06/01/18 17:41 Dose: 25 mg Montelukast Sodium (Singulair) 10 mg PO HS [facility] Last Admin: 06/01/18 21:35 Dose: 10 mg Ondansetron HCl (Zofran Odt) 4 mg PO TID PRN PRN Reason: Nausea/Vomiting Oxycodone/Acetaminophen (Percocet 5/325 Mg Tab) 1 tab PO Q6 PRN PRN Reason: Pain, severe (8-10) Stop: 06/04/18 02:37 Last Admin: 06/01/18 17:41 Dose: 1 tab Pantoprazole Sodium (Protonix Ec Tab) 40 mg PO 0600 [facility] Last Admin: 06/01/18 12:06 Dose: 40 mg Polyethylene Glycol (Miralax) 17 gm PO DAILY PRN PRN Reason: Constipation Last Admin: 06/01/18 09:15 Dose: 17 gm Sertraline HCl (Zoloft) 25 mg PO QAM [facility] Last Admin: 06/01/18 09:16 Dose: 25 mg Sucralfate (Carafate Oral Susp) 1 gm PO ACBD [facility] Last Admin: 06/01/18 17:40 Dose: 1 gm Triamcinolone Acetonide (Kenalog 0.1% In Orabase) 0 appl MT BID PRN PRN Reason: Inflammation Last Admin: 06/01/18 15:56 Dose: 1 applic Valacyclovir HCl (Valtrex) 500 mg PO BID [facility] Last Admin: 06/01/18 17:41 Dose: 500 mg Results - Vital Signs Recent Vital Signs: Last Vital Signs Temp 98.3 F 06/01/18 21:13 Pulse 88 06/01/18 21:13 Resp 20 06/01/18 21:13 BP 176/106 H 06/01/18 21:13 Pulse Ox 96 06/01/18 21:13 - Labs Result Diagrams: 06/02/18 08:15 06/02/18 08:15 Labs: Laboratory Results - last 24 hr 06/01/18 06/01/18 06/01/18 00:39 00:39 00:39 WBC 6.2 D RBC 3.58 Hgb 10.4 L Hct 32.1 L MCV 89.7 MCH 29.1 MCHC 32.4 RDW 15.8 H Plt Count 217 MPV 9.7 Neut % (Auto) 81.3 H Lymph % (Auto) 7.3 L Todd % (Auto) 10.6 H Eos % (Auto) 0.5 L Baso % (Auto) 0.3 Lymph # (Auto) 0.5 L Todd # (Auto) 0.7 H Eos # (Auto) 0.0 Baso # (Auto) 0.02 Absolute Neuts (auto) 5.00 PT 14.4 H INR 1.30 APTT 37.4 Sodium 139 Potassium 3.6 Chloride 105 Carbon Dioxide 23 Anion Gap 14 BUN 13 Creatinine 1.4 H Est GFR ( Amer) 45 Est GFR (Non-Af Amer) 38 Random Glucose 78 Calcium 9.3 Total Bilirubin 0.4 AST 31 ALT 13 Alkaline Phosphatase 190 H Total Protein 6.7 Albumin 3.3 Globulin 3.3 Albumin/Globulin Ratio 1.0 L Urine Color Urine Appearance Urine pH Ur Specific [place] Urine Protein Urine Glucose (UA) Urine Ketones Urine Blood Urine Nitrate Urine Bilirubin Urine Urobilinogen Ur Leukocyte Esterase Urine RBC Urine WBC Ur Epithelial Cells Urine Bacteria Stool Occult Blood Blood Type Blood Type Confirm Antibody Screen BBK History Checked 06/01/18 06/01/18 06/01/18 00:39 06:00 07:00 WBC 5.7 RBC 3.54 Hgb 10.1 L Hct 31.6 L MCV 89.3 MCH 28.5 MCHC 32.0 RDW 15.8 H Plt Count 180 MPV 9.6 Neut % (Auto) 80.2 H Lymph % (Auto) 7.6 L Todd % (Auto) 11.1 H Eos % (Auto) 0.7 L Baso % (Auto) 0.4 Lymph # (Auto) 0.4 L Todd # (Auto) 0.6 Eos # (Auto) 0.0 Baso # (Auto) 0.02 Absolute Neuts (auto) 4.54 PT INR APTT Sodium Potassium Chloride Carbon Dioxide Anion Gap BUN Creatinine Est GFR ( Amer) Est GFR (Non-Af Amer) Random Glucose Calcium Total Bilirubin AST ALT Alkaline Phosphatase Total Protein Albumin Globulin Albumin/Globulin Ratio Urine Color Yellow Urine Appearance Sl cloudy Urine pH 6.0 Ur Specific [place] 1.025 Urine Protein 30 H Urine Glucose (UA) Negative Urine Ketones 15 H Urine Blood Large H Urine Nitrate Negative Urine Bilirubin Negative Urine Urobilinogen 0.2 Ur Leukocyte Esterase Small H Urine RBC Tntc H Urine WBC 10 - 15 H Ur Epithelial Cells 0 - 2 Urine Bacteria Mod Stool Occult Blood Blood Type O POSITIVE Blood Type Confirm Antibody Screen Negative BBK History Checked No verified bt 06/01/18 06/01/18 06/01/18 07:00 07:00 16:50 WBC RBC Hgb Hct MCV MCH MCHC RDW Plt Count MPV Neut % (Auto) Lymph % (Auto) Todd % (Auto) Eos % (Auto) Baso % (Auto) Lymph # (Auto) Todd # (Auto) Eos # (Auto) Baso # (Auto) Absolute Neuts (auto) PT INR APTT Sodium 139 Potassium 3.6 Chloride 107 Carbon Dioxide 22 Anion Gap 13 BUN 13 Creatinine 1.3 H Est GFR ( Amer) 49 Est GFR (Non-Af Amer) 41 Random Glucose 61 L Calcium 8.4 Total Bilirubin 0.3 AST 21 ALT 11 Alkaline Phosphatase 170 H Total Protein 6.1 Albumin 2.9 L Globulin 3.2 Albumin/Globulin Ratio 0.9 L Urine Color Urine Appearance Urine pH Ur Specific [place] Urine Protein Urine Glucose (UA) Urine Ketones Urine Blood Urine Nitrate Urine Bilirubin Urine Urobilinogen Ur Leukocyte Esterase Urine RBC Urine WBC Ur Epithelial Cells Urine Bacteria Stool Occult Blood Positive H Blood Type Blood Type Confirm O POSITIVE Antibody Screen BBK History Checked Attending/Attestation - Attestation I have personally seen and examined this patient.: Yes I have fully participated in the care of the patient.: Yes I have reviewed all pertinent clinical information: Yes Notes (Text): This is an addendum to GI consult report dictated by the GI Fellow. The patient was seen and examined earlier. Medical records, lab studies, imagings were reviewed. Last 24 hours events reviewed. Agreed with the above treatment plan as outlined in GI Fellow 's notes with the addition of the following CT scan was reviewed Thickening of the rectum was noticed Patient has history of stroke or ulceration Hemoglobin stable Patient has history of chronic constipation and recurrent fecal impaction Advanced metastatic disease No immediate plan for colonoscopy or flexible sigmoidoscopy unless there is active significant bleeding Patient was advised to continue MiraLAX on a regular basis long-term We will request stool for C. difficile 06/01/18 22:19 06/02/18 11:23
[2018-06-01] MEDS: TRANEXAMIC ACID PO SCH ×4 (10:00→18:17)
[2018-06-01] MEDS: Oxycodone/Acetaminophen 5/325 mg Tab PO PRN ×2 (12:05→17:41)
[2018-06-01] MEDS: Pantoprazole 40 mg EC Tab PO SCH (12:06)
[2018-06-01] MEDS ORDERED: Benzocaine/Menthol (Cepacol) Lozenge MT PRN (12:38)
--- NOTE | 2018-06-01 15:23 | CT ---
Date of service: PROCEDURE: CT Abdomen and Pelvis without intravenous contrast HISTORY: Rectal bleeding COMPARISON: 04/12/2018. TECHNIQUE: CT scan of the abdomen and pelvis was performed without administration of intravenous contrast. Oral contrast was administered. Coronal and sagittal reformatted images were obtained. Radiation dose: Total exam DLP = 343.02 mGy-cm. This CT exam was performed using one or more of the following dose reduction techniques: Automated exposure control, adjustment of the mA and/or kV according to patient size, and/or use of iterative reconstruction technique. FINDINGS: LOWER THORAX: There is subsegmental atelectasis in the right middle lobe and lingula. The lung bases are clear. LIVER: Normal in size. Small nonspecific calcification in the right hepatic lobe no gross lesion or ductal dilatation. GALLBLADDER AND BILE DUCTS: The gallbladder is distended. No calcified gallstones. No common bile duct dilatation. PANCREAS: Diffuse atrophy of the pancreas. No gross lesion or ductal dilatation. SPLEEN: Normal in size. ADRENALS: Normal in size. No discrete nodule. KIDNEYS AND URETERS: Again seen is an atrophic right kidney and compensatory hypertrophy of the left kidney.. Bilateral nephrostomy tubes remain in place. VASCULATURE: Normal in caliber. No aortic aneurysm. No aortic atherosclerotic calcification or mural plaque present. BOWEL: The small bowel loops are normal in caliber. The ascending and transverse colon is normal in caliber. There is apparent mild circumferential mural thickening in the left hemicolon and severe circumferential mural thickening in the rectum. APPENDIX: Normal appendix. PERITONEUM: No free fluid. No free air. LYMPH NODES: No enlarged lymph nodes. BLADDER: Well distended and normal in appearance. REPRODUCTIVE: The is is normal in size. BONES: No acute fracture. Within normal limits for the patient's age. OTHER FINDINGS: None. IMPRESSION: 1. Mild circumferential mural thickening in the left hemicolon and severe circumferential mural thickening in the rectum which may represent nonspecific acute infectious/inflammatory colitis and proctitis. Given severe circumferential mural thickening in the rectum, underlying neoplasm is not entirely excluded. Clinical follow-up is advised and correlation with proctoscopy and endoscopic may be performed if clinically indicated. 2. No other significant interval change since the prior examination.
[2018-06-01] MEDS: Triamcinolone 0.1% Orabase TUBE MT PRN (15:56)
[2018-06-01] MEDS: Azithromycin 500MG/NS 250ml 500 MG/250 ML BAG IVPB SCH (16:08)
[2018-06-01] MEDS ORDERED: Morphine 4 mg/ml ISec IVP ONE (21:00)
--- NOTE | 2018-06-01 21:13 | CON ---
DATE OF CONSULTATION: 06/01/2018 The patient is seen in the emergency room earlier this morning in Room 574, Bed 2. CHIEF COMPLAINT: Rectal bleeding x1 day. HISTORY OF PRESENT ILLNESS: This is a 67-year-old female with recent hospitalization and past medical history significant for E. coli and Enterococcus urinary tract infections with the right-sided indwelling nephrostomy tube in a patient with cervical cancer, has had chemotherapy, who is admitted through the emergency room, seen by Dr. Dilan Ann in the emergency room who states that the patient has complained of rectal bleeding and the patient also with kidney disease and also with radiation cystitis, psoriasis, depression, rectal cancer, cervical cancer, status post chemotherapy. The patient also with a history of coronary artery disease and cardiac stent placement. Infectious disease consultation requested. PAST MEDICAL HISTORY: Significant for cervical cancer with metastases to the lung, has had chemotherapy and radiation, coronary artery disease with PCI, hypertension, mitral valve prolapse, bronchitis in addition to TIA, kidney disease, history of nephrostomy tube placement, radiation cystitis, psoriasis, depression, Watkins's esophagus, stercoral ulceration with rectal bleeding. The patient was discharged 2 days ago with following chemotherapy. PAST SURGICAL HISTORY: Significant for nephrostomy tube and the cardiac stents. MEDICATIONS AT HOME: Aspirin, Lopressor, Singulair. ALLERGIES: NO KNOWN ALLERGIES. REVIEW OF SYSTEMS: A 12-point review of systems is performed. The patient has not had any fevers, any chills. No dysuria, frequency or headaches. PHYSICAL EXAMINATION: GENERAL: The patient is in bed. VITAL SIGNS: Temperature of 98, heart rate of 88, respiratory rate of 18, blood pressure is 150/90. HEENT: Unremarkable. NECK: Supple. LUNGS: Decreased breath sounds. HEART: Normal S1 and S2. ABDOMEN: Soft, nontender. No rebound or guarding. LABORATORY EXAMINATION: White count of 6.2, hemoglobin of 10, platelets of 217,000. Coagulation is noted. Creatinine is 1.4 and it was 1.7 earlier in 05/2018. Urinalysis is 10-15 wbc's, moderate bacteria. Microbiology reveals the patient did have E. coli in the urine, which is pansensitive that was in 05/16/2018 and has had recurrent E. coli. ASSESSMENT/PLAN: The patient is also on acyclovir.. Review of chart from the last admission reveals the patient has had oral ulcers and HS fevers, as aphthous ulcers were concerned. He had been on acyclovir, today would be day #5 of acyclovir. The patient had a positive IgG for pertussis. He does have a cough and this was worked up as an outpatient. The patient was not treated as outpatient for that cough. We will start the patient on Zithromax. Because of the GI bleed, we will start IV Zithromax. Although at this point probably it is the paroxysmal coughing, it is probably closer to the eradication of the carriage state or get to the pertussis. No EKG is available. We will review EKG from her previous admission and make further recommendations. Review of EKG from 04/22/2018 reveals a QTc of 459. We will follow with you. Rogers Pitts MD
--- NOTE | 2018-06-02 00:25 | HP ---
DATE OF EXAM: 06/01/2018 This is Glenna Merykellen's admission history and physical. For Dr. Ford. CHIEF COMPLAINT: Rectal bleed. HISTORY OF PRESENT ILLNESS: The patient is a 67-year-old female seen in the outpatient clinic yesterday with complaint of sore buccal mucosa with the patient being treated for herpes/viral infection with positive influenza titers and pertussis titers done earlier in the week in the office with the patient had hospitalized for progressive dysphasia, inability to keep liquids or solids down due to pain and drainage with drooling. She then discharged 2 days prior after being transfused 2 units of packed red blood cells with Granix being given the day of discharge and then yesterday in the outpatient clinic, which she denied any complaints of as above. She then came to the emergency room yesterday evening with complaint of bloody stool with clots for which she was now admitted for evaluation. The patient refused rectal exam, there was no significant findings except the patient's history of bright red rectal bleed with clots. The patient is now to suffer from metastatic stage-IV carcinoma of the cervix. We recently documented recurrent disease in the mediastinum documented by CT guided biopsy with palliative radiation being given to the area, which is closing mechanical pressure on her esophagus, closing dysphasia with cough and occasional hemoptysis. She also denies any chemotherapy which is on hold for now. At present, the patient is now seen denying any further episodes while being hospitalized, requesting IV narcotic analgesics for her pain, which is in the lower abdomen. The patient also suffers from coronary artery disease with 6 stents known to be placed and has bilateral nephrostomy tubes from radiation cystitis with chemotherapy complications in the past with embolization done at that time along with tranexamic acid being given for significant period of time to ameliorate the bleeding from the bladder. More recently diagnosed with Crohn's disease. At present, she is resting comfortable, in no acute distress. PAST MEDICAL HISTORY: As above with metastatic stage-IV cancer of the cervix with recurrent disease now in the mediastinum, dysphasia, stercoral ulceration of the anal canal, Watkins's esophagus, depression, radiation cystitis, bilateral nephrostomy tube placement, chronic kidney disease, prior CBD with stent placement, status post hysterectomy, and status post ankle fracture with repair. FAMILY HISTORY/SOCIAL HISTORY: Former smoker, quit. Denies alcohol use, . ALLERGIES: NO KNOWN ALLERGIES. MEDICATIONS: At this time include Carafate, Cepacol, Colace, Ecotrin, tranexamic acid, Kenalog, Orabase, viscous lidocaine, Lopressor, MiraLax, Percocet, Protonix, Robitussin DM, Singulair, Tylenol, Valtrex, Zofran, and Zoloft. REVIEW OF SYSTEMS: A 12-point review of system was done which was negative to questioning except for items mentioned in the history of present of illness. OBJECTIVE/PHYSICAL EXAMINATION: VITAL SIGNS: Temperature 97.8, pulse 75, respirations 18, blood pressure 133/95, and pulse ox of 98%. HEENT: Poor dentition. Tongue is moist. NECK: Supple. HEART: Regular rate. LUNGS: Clear. ABDOMEN: Soft and nontender with bilateral nephrostomy tubes noted. EXTREMITIES: No edema. SKIN: Warm and dry. NEUROLOGIC: Awake and alert. LABORATORY DATA: The patient's labs were done, white blood cell count of 5.7, hemoglobin 10.1, hematocrit 31.6, and platelet count of 180,000. It should be noted that the patient was transfused 2 units of packed red blood cells in the prior hospitalization approximately 3 days prior for hemoglobin of 8.2. She also had a white blood cell count done of 2.1 with absolute neutrophil count of 1.6. With Granix being given the day prior and on the day of discharge. The patient's metabolic panel was within normal range with a creatinine of 1.3, normal BUN of 13, alkaline phosphatase of 170. The patient's urine analysis showed large amount of blood with small amount leukocyte esterase, INR 1.3. Stool for occult blood was not obtained and the patient refused rectal exam. ASSESSMENT: For this patient is that of rectal bleed, history of stercoral ulceration, Barrette's esophagus, stage-IV carcinoma of cervix with mediastinal involvement, influenza titer, recent viral stomatitis, questionable herpetic, anemia of chronic disease, dysphasia, depression, chronic pain of cancer, and bilateral nephrostomy tubes. PLAN: For this patient, after conversation with Dr. Ford, we will ask for consult with Dr. Sumner, Gastrointestinal; Dr. Pitts, Infectious Disease as the patient is to continue antivirals with consideration treatment for pertussis as indicated. We will continue her recommendations and medicines for her oral discomfort along with her gastrointestinal issues including her history of Barrette's esophagus. She also suffers from depression. Her medications also will be continued in that way. We will monitor clinically and labs. She will be on a clear liquid diet until advanced as per Dr. Sumner with considerations for further testing as indicated with a CT scan of the abdomen and pelvis to be done without contrast. We will also ask for consult with for palliative care, comfort measures for the patient's comfort to be considered. This is a complex patient with a comprehensive medically necessary and appropriate visit carried out in excess of 90 minutes with the patient's questions answered to her satisfaction. Evaristo Saldivar MD
[2018-06-02] MEDS: Pantoprazole 40 mg EC Tab PO SCH (05:50)
[2018-06-02] MEDS ORDERED: Morphine 2 mg/ml ISec IVP PRN (08:23)
[2018-06-02 08:33] LABS: BASO # 0.03 K/mm3 (0.0-2.0); BASO % 0.4 % (0.0-3.0); EOS % 0.3 % (1.5-5.0); HEMOGLOBIN 10.9 g/dL (12.0-16.0); LYMPH # 0.6 (1.2-3.4); LYMPH % 7.6 % (22.0-35.0); MEAN CELL VOLUME 89.5 fl (80.0-105.0); MEAN CORPUSCULAR HEMOGLOBIN 28.5 pg (25.0-35.0); MEAN CORPUSCULAR HGB CONC 31.9 g/dl (31.0-37.0); MEAN PLATELET VOLUME 9.3 fl (7.0-11.0); MONO # 0.5 (0.1-0.6); MONO % 6.4 % (1.0-6.0); RBC 3.82 10^6/uL (3.5-6.1); WHITE BLOOD COUNT 7.5 10^3/uL (4.5-11.0)
[2018-06-02 08:41] LABS: ALBUMIN 3.1 g/dL (3.0-4.8)
--- NOTE | 2018-06-02 09:24 | CP.PCM.PN ---
<FannyfaizanJet winn - Last Filed: 06/02/18 09:20> Subjective - Date & Time of Evaluation Date of Evaluation: 06/02/18 Time of Evaluation: 08:00 - Subjective Subjective: PGY6 GI Fellow Progress Note Patient seen and examined bedside this morning. The patient has been complaining of diffuse body pains, worst in her throat and rectal area since last night. Overnight she received Morphine IVP with improvement. Had episodes of confusion and disorientation. Passed small amount of stool with some blood. 12 system ROS limited given altered mentation Objective - Vital Signs/Intake and Output Vital Signs (last 24 hours): Temp Pulse Resp BP Pulse Ox 98 F 90 20 166/99 H 97 06/02/18 08:18 06/02/18 08:18 06/02/18 08:18 06/02/18 08:18 06/02/18 08:18 - Medications Medications: Current Medications Acetaminophen (Tylenol 325mg Tab) 650 mg PO Q4H PRN PRN Reason: Pain, Mild (1-3) Aspirin (Ecotrin) 81 mg PO DAILY [facility] Last Admin: 06/01/18 11:23 Dose: Not Given Benzocaine/Menthol (Cepacol Sore Throat) 1 devante MT Q2H PRN PRN Reason: Sore Throat Docusate Sodium (Colace) 100 mg PO BID [facility] Last Admin: 06/01/18 17:42 Dose: Not Given Guaifenesin/Dextromethorphan (Robitussin Dm) 10 ml PO Q4H PRN PRN Reason: Cough Last Admin: 06/01/18 09:15 Dose: 10 ml Home Med (Home Med) 2 unit PO BID [facility] Last Admin: 06/01/18 18:17 Dose: 2 unit Azithromycin (Zithromax 500mg In Ns) 500 mg in 250 mls @ 167 mls/hr IVPB DAILY [facility]; Protocol Stop: 06/06/18 14:31 Last Admin: 06/01/18 16:08 Dose: 167 mls/hr Lidocaine HCl (Lidocaine 2% Viscous) 15 ml PO Q8H PRN PRN Reason: Other Last Admin: 06/01/18 10:45 Dose: 15 ml Metoprolol Tartrate (Lopressor) 25 mg PO BRKDIN [facility] Last Admin: 06/01/18 17:41 Dose: 25 mg Montelukast Sodium (Singulair) 10 mg PO HS [facility] Last Admin: 06/01/18 21:35 Dose: 10 mg Morphine Sulfate (Morphine) 2 mg IVP Q4H PRN PRN Reason: Pain, moderate (4-7) Ondansetron HCl (Zofran Odt) 4 mg PO TID PRN PRN Reason: Nausea/Vomiting Oxycodone/Acetaminophen (Percocet 5/325 Mg Tab) 1 tab PO Q6 PRN PRN Reason: Pain, severe (8-10) Stop: 06/04/18 02:37 Last Admin: 06/01/18 17:41 Dose: 1 tab Pantoprazole Sodium (Protonix Ec Tab) 40 mg PO 0600 [facility] Last Admin: 06/02/18 05:50 Dose: 40 mg Polyethylene Glycol (Miralax) 17 gm PO DAILY PRN PRN Reason: Constipation Last Admin: 06/01/18 09:15 Dose: 17 gm Sertraline HCl (Zoloft) 25 mg PO QAM [facility] Last Admin: 06/01/18 09:16 Dose: 25 mg Sucralfate (Carafate Oral Susp) 1 gm PO ACBD [facility] Last Admin: 06/01/18 17:40 Dose: 1 gm Triamcinolone Acetonide (Kenalog 0.1% In Orabase) 0 appl MT BID PRN PRN Reason: Inflammation Last Admin: 06/01/18 15:56 Dose: 1 applic Valacyclovir HCl (Valtrex) 500 mg PO BID [facility] Last Admin: 06/01/18 17:41 Dose: 500 mg - Labs Labs: 06/02/18 08:15 06/02/18 08:15 PT 14.4 SECONDS (9.4-12.5) H 06/01/18 00:39 INR 1.30 06/01/18 00:39 APTT 37.4 Seconds (26.9-38.3) 06/01/18 00:39 - Constitutional Appears: Agitated, Chronically Ill - Eye Exam Eye Exam: EOMI, PERRL - ENT Exam ENT Exam: Mucous Membranes Moist - Respiratory Exam Respiratory Exam: Clear to Ausculation Bilateral. absent: Rales, Rhonchi, Wheezes - Cardiovascular Exam Cardiovascular Exam: RRR, +S1, +S2 - GI/Abdominal Exam GI & Abdominal Exam: Soft, Tenderness, Normal Bowel Sounds. absent: Distended, Firm, Guarding, Rigid, Organomegaly - Rectal Exam Additional comments: patient again refused any rectal examination - Extremities Exam Extremities Exam: Normal Inspection. absent: Pedal Edema - Neurological Exam Neurological Exam: Altered, Awake - Psychiatric Exam Psychiatric exam: Normal Affect, Normal Mood - Skin Skin Exam: Dry, Warm Assessment and Plan - Assessment and Plan (Free Text) Assessment: Patient is a 67yo female with PMHx significant for cervical cancer with metastases to lungs s/p chemoXRT, CAD s/p PCI, CKD with h/o nephrostomy tube placement, radiation cystitis, psoriasis, depression, Watkins's esophagus and stercoral ulceration who presented to the hospital with rectal bleeding -Rectal bleeding, refusing examination - presumed 2/2 stercoral ulceration vs radiation proctitis -Short segment Watkins's esophagus without dysplasia -Cervical cancer with metastases to lung -CAD -CKD Plan: -Patient with odynophagia and rectal pain - refusing Lidocaine swish/swallow and will not allow rectal examination or administration of medication rectally (such as lidocaine) -Continue stool softeners - Dulcolax and Miralax to prevent further irritation of rectum -If symptoms persist, consider further eval with EGD to R/O opportunistic infection (Fungal, CMV, HSV) however patient currently not agreeable -Diet as tolerated <Taisha,Kovil V - Last Filed: 06/02/18 23:04> Objective - Vital Signs/Intake and Output Vital Signs (last 24 hours): Temp Pulse Resp BP Pulse Ox 98.4 F 81 21 145/95 H 96 06/02/18 22:19 06/02/18 22:19 06/02/18 22:19 06/02/18 22:19 06/02/18 22:19 - Medications Medications: Current Medications Acetaminophen (Tylenol 325mg Tab) 650 mg PO Q4H PRN PRN Reason: Pain, Mild (1-3) Aspirin (Ecotrin) 81 mg PO DAILY [facility] Last Admin: 06/02/18 09:58 Dose: 81 mg Benzocaine/Menthol (Cepacol Sore Throat) 1 devante MT Q2H PRN PRN Reason: Sore Throat Guaifenesin/Dextromethorphan (Robitussin Dm) 10 ml PO Q4H PRN PRN Reason: Cough Last Admin: 06/01/18 09:15 Dose: 10 ml Home Med (Home Med) 2 unit PO BID [facility] Last Admin: 06/02/18 17:28 Dose: 2 unit Azithromycin (Zithromax 500mg In Ns) 500 mg in 250 mls @ 167 mls/hr IVPB DAILY [facility]; Protocol Stop: 06/06/18 14:31 Last Admin: 06/02/18 10:07 Dose: 167 mls/hr Lidocaine HCl (Lidocaine 2% Viscous) 15 ml PO Q8H PRN PRN Reason: Other Last Admin: 06/01/18 10:45 Dose: 15 ml Metoprolol Tartrate (Lopressor) 25 mg PO BRKDIN [facility] Last Admin: 06/02/18 17:28 Dose: 25 mg Montelukast Sodium (Singulair) 10 mg PO HS [facility] Last Admin: 06/02/18 22:12 Dose: 10 mg Morphine Sulfate (Morphine) 2 mg IVP Q4H PRN PRN Reason: Pain, severe (8-10) Last Admin: 06/02/18 19:33 Dose: 2 mg Ondansetron HCl (Zofran Odt) 4 mg PO TID PRN PRN Reason: Nausea/Vomiting Oxycodone/Acetaminophen (Percocet 5/325 Mg Tab) 1 tab PO Q6 PRN PRN Reason: Pain, moderate (4-7) Stop: 06/04/18 02:37 Pantoprazole Sodium (Protonix Ec Tab) 40 mg PO 0600 [facility] Last Admin: 06/02/18 05:50 Dose: 40 mg Sertraline HCl (Zoloft) 25 mg PO QAM [facility] Last Admin: 06/02/18 09:58 Dose: 25 mg Sucralfate (Carafate Oral Susp) 1 gm PO ACBD [facility] Last Admin: 06/02/18 17:27 Dose: 1 gm Triamcinolone Acetonide (Kenalog 0.1% In Orabase) 0 appl MT BID PRN PRN Reason: Inflammation Last Admin: 06/01/18 15:56 Dose: 1 applic Valacyclovir HCl (Valtrex) 500 mg PO BID [facility] Last Admin: 06/02/18 17:28 Dose: 500 mg - Labs Labs: 06/02/18 08:15 06/02/18 08:15 PT 14.4 SECONDS (9.4-12.5) H 06/01/18 00:39 INR 1.30 06/01/18 00:39 APTT 37.4 Seconds (26.9-38.3) 06/01/18 00:39 Attending/Attestation - Attestation I have personally seen and examined this patient.: Yes I have fully participated in the care of the patient.: Yes I have reviewed all pertinent clinical information, including history, physical exam and plan: Yes Notes (Text): This is an addendum to GI progress report dictated by the GI Fellow. The patient was seen and examined earlier. Medical records, lab studies, imagings were reviewed. Last 24 hours events reviewed. Agreed with the above treatment plan as outlined in GI Fellow 's notes with the addition of the following 06/02/18 23:04
[2018-06-02] MEDS: TRANEXAMIC ACID PO SCH ×2 (10:04→17:28)
[2018-06-02] MEDS: Azithromycin 500MG/NS 250ml 500 MG/250 ML BAG IVPB SCH (10:07)
[2018-06-02] MEDS ORDERED: Oxycodone/Acetaminophen 5/325 mg Tab PO PRN (11:29)
[2018-06-02] MEDS: Sucralfate 1 gm/10 ml Oral Susp UD PO SCH ×2 (11:38→17:27)
[2018-06-02] MEDS: Morphine 2 mg/ml ISec IVP PRN ×3 (15:27→23:40)
--- NOTE | 2018-06-02 16:26 | PN ---
DATE: 06/02/2018 SUBJECTIVE: The patient is in bed in no acute distress, nontoxic. PHYSICAL EXAMINATION: VITAL SIGNS: Temperature is 98, blood pressure is 160/100, respiratory rate of 20, heart rate of 98. HEENT: Unremarkable. NECK: Supple. LUNGS: Have decreased breath sounds. HEART: Normal S1, S2. ABDOMEN: Soft, nontender. LABORATORY EXAMINATION: Reveals the patient had a white count of 7.5, hemoglobin of 10. Creatinine is 1.2. Urinalysis is noted and stool occult positive. Microbiology is pending. Review of orders reveals the patient to be on Zithromax IV. note is reviewed and appreciated. ASSESSMENT AND PLAN: This is a 67-year-old female with past medical history of Escherichia coli and Enterococcus urinary tract infection, right-sided indwelling nephrostomy tube; cervical cancer, had chemotherapy and admitted with rectal bleeding and the patient was found to have positive for pertussis, the patient is also on acyclovir day #5, day #2 of azithromycin and Zithromax for questionable pertussis. We will review the laboratory which was done as outpatient. Rogers Pitts MD
--- NOTE | 2018-06-02 22:52 | PN ---
DATE: 06/02/2018 This is [facility] visit on the medical floor. For Dr. Ford. SUBJECTIVE: The patient is a 67-year-old female. She is sitting up in bed, requesting narcotic analgesics for her rectal and back pain. She is known to have bilateral percutaneous nephrostomy tubes and a stercoral ulcer at the anal canal with admission for rectal bleeding with clots. 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 Known to have had a history of radiation proctitis. The patient also has Watkins's esophagus history along with cervical cancer with metastasis to the mediastinum with recent positive titers for influenza, parainfluenza/pertussis, being evaluated by Dr. Pitts, Infectious Disease. The patient also had oral ulceration with consideration of her mediastinal involvement compromising her ability to swallow with the odynophagia, being treated with viscous lidocaine and the patient otherwise having her diet advanced early today from clear liquids. The patient also has history of adjustment disorder for which she is on medications as per consultants in the past. OBJECTIVE: PHYSICAL EXAMINATION: VITAL SIGNS: Temperature 98, pulse 98, respirations 20, blood pressure 160/107, pulse ox 97%. HEENT: Poor dentition. No obvious lesions appreciated in the oropharynx. Tongue is moist. NECK: Supple. HEART: Regular rate. LUNGS: Clear. ABDOMEN: Soft, nontender with bilateral nephrostomy tubes on her back. EXTREMITIES: No edema. SKIN: Warm and dry. NEUROLOGIC: Awake and alert with the patient reporting significant pain in her back and lower abdomen and mouth. LABORATORY DATA: The patient's labs were done. White blood cell count of 7.5, hemoglobin 10.9, hematocrit 34.2, platelet count 189,000. The metabolic panel showing a potassium of 3.2 which will be corrected. INR of 1.3 yesterday. Stool for occult blood is now positive as is her urine for large amount of blood. Small amount of leukocyte esterase with the urine culture showing greater than 100,000 cocci, gram-negative rods, and gram-positive cocci for which Dr. Pitts, Infectious Disease [employer] consultant is treating the patient. ASSESSMENT: Rectal bleed positive secondary to stercoral ulcer with the patient refusing evaluation, history of Watkins's esophagus, stage IV carcinoma of the cervix with mediastinal involvement with percutaneous nephrostomy tubes, question of herpetic oral lesions, recent infection with influenza, pertussis, anemia of chronic disease, hematuria with urinary tract infection, dysphagia, depression, chronic pain of cancer, adjustment disorder. PLAN: After conversation with Dr. Pitts, Dr. Ford, and Dr. Sumner, is to continue present medical regimen with treatment as indicated. She continues on her tranexamic acid along with antibiotics now being recommended by Dr. Pitts including azithromycin IV and the acyclovir to continue. We will also give morphine 2 mg IV every 4 hours p.r.n. severe pain in addition to oxycodone 5/325 one tablet every 6 hours p.r.n. moderate pain. This is a complex patient with a comprehensive medically necessary and appropriate visit carried out in excess of 40 minutes with the patient's and her family's questions answered to their satisfaction. We will also replenish potassium as above. Evaristo Saldivar MD
[2018-06-03] MEDS: Pantoprazole 40 mg EC Tab PO SCH (05:30)
[2018-06-03] MEDS: Morphine 2 mg/ml ISec IVP PRN ×2 (05:31→09:33)
[2018-06-03 07:48] LABS: BASO # 0.04 K/mm3 (0.0-2.0); BASO % 0.9 % (0.0-3.0); EOS % 0.9 % (1.5-5.0); HEMOGLOBIN 11.3 g/dL (12.0-16.0); LYMPH # 0.5 (1.2-3.4); MEAN CELL VOLUME 89.8 fl (80.0-105.0); MEAN CORPUSCULAR HEMOGLOBIN 28.2 pg (25.0-35.0); MEAN CORPUSCULAR HGB CONC 31.4 g/dl (31.0-37.0); MEAN PLATELET VOLUME 9.8 fl (7.0-11.0); MONO # 0.5 (0.1-0.6); MONO % 11.5 % (1.0-6.0); RBC 4.01 10^6/uL (3.5-6.1); WHITE BLOOD COUNT 4.5 10^3/uL (4.5-11.0)
[2018-06-03 08:00] LABS: INR 1.23; PARTIAL THROMBOPLASTIN TIME 33.5 Seconds (26.9-38.3); PROTHROMBIN TIME 13.9 SECONDS (9.4-12.5)
[2018-06-03 08:48] LABS: ALBUMIN 3.3 g/dL (3.0-4.8); CALCIUM 9.2 mg/dL (8.4-10.5)
[2018-06-03] MEDS: Sucralfate 1 gm/10 ml Oral Susp UD PO SCH ×2 (09:13→17:33)
[2018-06-03] MEDS: Azithromycin 500MG/NS 250ml 500 MG/250 ML BAG IVPB SCH (09:18)
[2018-06-03] MEDS: TRANEXAMIC ACID PO SCH ×2 (09:33→18:12)
[2018-06-03] MEDS ORDERED: POLYETHYLENE GLYCOL 3350 17 GM/Dose PACKET PO SCH (10:00)
--- NOTE | 2018-06-03 10:56 | CP.PCM.PN ---
<Josie Bowen - Last Filed: 06/03/18 11:00> Subjective - Date & Time of Evaluation Date of Evaluation: 06/03/18 Time of Evaluation: 07:00 - Subjective Subjective: PGY 5 GI Follow-up Pt seen and examined bedside Denies any abd pain still has rectal pain, and throat pain tolerating diet ROS: 12 point ROS conducted, neg other than above Objective - Vital Signs/Intake and Output Vital Signs (last 24 hours): Temp Pulse Resp BP Pulse Ox 98.4 F 92 H 21 138/102 H 96 06/02/18 22:19 06/03/18 09:18 06/02/18 22:19 06/03/18 09:18 06/02/18 22:19 - Medications Medications: Current Medications Acetaminophen (Tylenol 325mg Tab) 650 mg PO Q4H PRN PRN Reason: Pain, Mild (1-3) Aspirin (Ecotrin) 81 mg PO DAILY [facility] Last Admin: 06/03/18 09:13 Dose: 81 mg Benzocaine/Menthol (Cepacol Sore Throat) 1 devante MT Q2H PRN PRN Reason: Sore Throat Guaifenesin/Dextromethorphan (Robitussin Dm) 10 ml PO Q4H PRN PRN Reason: Cough Last Admin: 06/01/18 09:15 Dose: 10 ml Home Med (Home Med) 2 unit PO BID [facility] Last Admin: 06/03/18 09:33 Dose: 2 unit Azithromycin (Zithromax 500mg In Ns) 500 mg in 250 mls @ 167 mls/hr IVPB DAILY [facility]; Protocol Stop: 06/06/18 14:31 Last Admin: 06/03/18 09:18 Dose: 167 mls/hr Lidocaine HCl (Lidocaine 2% Viscous) 15 ml PO Q8H PRN PRN Reason: Other Last Admin: 06/01/18 10:45 Dose: 15 ml Metoprolol Tartrate (Lopressor) 25 mg PO BRKDIN [facility] Last Admin: 06/03/18 09:18 Dose: 25 mg Montelukast Sodium (Singulair) 10 mg PO HS [facility] Last Admin: 06/02/18 22:12 Dose: 10 mg Morphine Sulfate (Morphine) 2 mg IVP Q4H PRN PRN Reason: Pain, severe (8-10) Last Admin: 06/03/18 09:33 Dose: 2 mg Ondansetron HCl (Zofran Odt) 4 mg PO TID PRN PRN Reason: Nausea/Vomiting Oxycodone/Acetaminophen (Percocet 5/325 Mg Tab) 1 tab PO Q6 PRN PRN Reason: Pain, moderate (4-7) Stop: 06/04/18 02:37 Pantoprazole Sodium (Protonix Ec Tab) 40 mg PO 0600 [facility] Last Admin: 06/03/18 05:30 Dose: Not Given Sertraline HCl (Zoloft) 25 mg PO QAM [facility] Last Admin: 06/03/18 09:14 Dose: 25 mg Sucralfate (Carafate Oral Susp) 1 gm PO ACBD [facility] Last Admin: 06/03/18 09:13 Dose: 1 gm Triamcinolone Acetonide (Kenalog 0.1% In Orabase) 0 appl MT BID PRN PRN Reason: Inflammation Last Admin: 06/01/18 15:56 Dose: 1 applic Valacyclovir HCl (Valtrex) 500 mg PO BID [facility] Last Admin: 06/03/18 09:14 Dose: 500 mg - Labs Labs: 06/03/18 07:20 06/03/18 07:20 PT 13.9 SECONDS (9.4-12.5) H 06/03/18 07:20 INR 1.23 06/03/18 07:20 APTT 33.5 Seconds (26.9-38.3) 06/03/18 07:20 - Constitutional Appears: Well, Non-toxic, No Acute Distress - Head Exam Head Exam: ATRAUMATIC, NORMOCEPHALIC - Eye Exam Eye Exam: Normal appearance - ENT Exam Additional comments: ulcer base left tongue - Neck Exam Neck Exam: Normal Inspection - Respiratory Exam Respiratory Exam: Clear to Ausculation Bilateral, NORMAL BREATHING PATTERN. absent: Accessory Muscle Use, Chest Wall Tenderness, Prolonged Expiratory Phase, Rales, Rhonchi, Wheezes, Respiratory Distress, Stridor - Cardiovascular Exam Cardiovascular Exam: REGULAR RHYTHM, +S1, +S2 - GI/Abdominal Exam GI & Abdominal Exam: Soft, Normal Bowel Sounds. 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 s/p chemoXRT, CAD s/p PCI, CKD with h/o nephrostomy tube placement, radiation cystitis, psoriasis, depression, Watkins's esophagus and stercoral ulceration who presented to the hospital with rectal bleeding -Rectal bleeding, refusing examination - presumed 2/2 stercoral ulceration vs radiation proctitis -Short segment Watkins's esophagus without dysplasia -Cervical cancer with metastases to lung -CAD -CKD Plan: -Patient with odynophagia and rectal pain - refusing Lidocaine swish/swallow and will not allow rectal examination or administration of medication rectally (such as lidocaine) -Continue stool softeners - Dulcolax and Miralax to prevent further irritation of rectum -If symptoms persist, consider further eval with EGD to R/O opportunistic infection (Fungal, CMV, HSV) however patient currently not agreeable -Diet as tolerated -hgb stable, would not transfuse at this time -continue PPI D/W Dr. Sumner <Taisha,Harvey V - Last Filed: 06/04/18 00:41> Objective - Vital Signs/Intake and Output Vital Signs (last 24 hours): Temp Pulse Resp BP Pulse Ox 98.6 F 86 20 163/97 H 93 L 06/03/18 23:02 06/03/18 23:02 06/03/18 23:02 06/03/18 23:02 06/03/18 23:02 Intake and Output: 06/03/18 06/04/18 18:59 06:59 Intake Total 600 600 Balance 600 600 - Medications Medications: Current Medications Acetaminophen (Tylenol 325mg Tab) 650 mg PO Q4H PRN PRN Reason: Pain, Mild (1-3) Aspirin (Ecotrin) 81 mg PO DAILY [facility] Last Admin: 06/03/18 09:13 Dose: 81 mg Benzocaine/Menthol (Cepacol Sore Throat) 1 devante MT Q2H PRN PRN Reason: Sore Throat Guaifenesin/Dextromethorphan (Robitussin Dm) 10 ml PO Q4H PRN PRN Reason: Cough Last Admin: 06/01/18 09:15 Dose: 10 ml Home Med (Home Med) 2 unit PO BID [facility] Last Admin: 06/03/18 18:12 Dose: Not Given Azithromycin (Zithromax 500mg In Ns) 500 mg in 250 mls @ 167 mls/hr IVPB DAILY [facility]; Protocol Stop: 06/06/18 14:31 Last Admin: 06/03/18 09:18 Dose: 167 mls/hr Lidocaine HCl (Lidocaine 2% Viscous) 15 ml PO Q8H PRN PRN Reason: Other Last Admin: 06/01/18 10:45 Dose: 15 ml Metoprolol Tartrate (Lopressor) 25 mg PO BRKDIN [facility] Last Admin: 06/03/18 17:33 Dose: 25 mg Montelukast Sodium (Singulair) 10 mg PO HS [facility] Last Admin: 06/03/18 21:55 Dose: 10 mg Morphine Sulfate (Morphine) 4 mg IVP Q3 PRN PRN Reason: Pain, severe (8-10) Last Admin: 06/03/18 23:56 Dose: 4 mg Ondansetron HCl (Zofran Odt) 4 mg PO TID PRN PRN Reason: Nausea/Vomiting Oxycodone/Acetaminophen (Percocet 5/325 Mg Tab) 1 tab PO Q6 PRN PRN Reason: Pain, moderate (4-7) Stop: 06/04/18 02:37 Pantoprazole Sodium (Protonix Ec Tab) 40 mg PO 0600 [facility] Last Admin: 06/03/18 05:30 Dose: Not Given Sertraline HCl (Zoloft) 25 mg PO QAM [facility] Last Admin: 06/03/18 09:14 Dose: 25 mg Sucralfate (Carafate Oral Susp) 1 gm PO ACBD [facility] Last Admin: 06/03/18 17:33 Dose: 1 gm Triamcinolone Acetonide (Kenalog 0.1% In Orabase) 0 appl MT BID PRN PRN Reason: Inflammation Last Admin: 06/01/18 15:56 Dose: 1 applic Valacyclovir HCl (Valtrex) 500 mg PO BID [facility] Last Admin: 06/03/18 18:12 Dose: Not Given Vancomycin HCl (Vancocin 25 Mg/Ml (Oral Use)) 125 mg PO QID [facility]; Protocol Last Admin: 06/03/18 21:55 Dose: 125 mg - Labs Labs: 06/03/18 07:20 06/03/18 07:20 PT 13.9 SECONDS (9.4-12.5) H 06/03/18 07:20 INR 1.23 06/03/18 07:20 APTT 33.5 Seconds (26.9-38.3) 06/03/18 07:20 Attending/Attestation - Attestation I have personally seen and examined this patient.: Yes I have fully participated in the care of the patient.: Yes I have reviewed all pertinent clinical information, including history, physical exam and plan: Yes Notes (Text): This is an addendum to GI progress report dictated by the GI Fellow. The patient was seen and examined earlier. Medical records, lab studies, imagings were reviewed. Last 24 hours events reviewed. Agreed with the above treatment plan as outlined in GI Fellow 's notes with the addition of the following 06/04/18 00:41
[2018-06-03] MEDS ORDERED: Morphine 4 mg/ml ISec IVP PRN (11:48)
--- NOTE | 2018-06-03 11:57 | CP.PCM.CON ---
History of Present Illness - History of Present Illness History of Present Illness: Palliative consult request by Dr Caterina Ford Reason: Goals of care 67 year old female with history of metastatic cervical cancer who presented to ED on 06/01/18 with bright red rectal bleeding. Patient also complained of odynophagia secondary to herpetic oral ulcers. 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 Urine culture positive for E Coli. Stool positive for occult blood PMHx: metastatic cervical cancer s/p radiation,currently receiving chemotherapy, Watkins's esophagus, CAD, radiation cystitis, HTN,Chrohn's disease PSHx Cardiac stents x 6, bilateral nephrostomy tubes,hysterectomy Social History: Former fdc smoker, no alcohol or illicit drug use. , lives alone. Family History:Non contributory Advance Care Planning: The patient has an Advanced Directive. She is full code status. Review of Systems: As per HPI, 12 point ROS otherwise negative Past Patient History - Infectious Disease Hx of Infectious Diseases: None - Tetanus Immunizations Tetanus Immunization: Unknown - Past Medical History & Family History Past Medical History?: Yes - Past Social History Smoking Status: Former Smoker - CARDIAC Hx Cardiac Disorders: Yes (cad stent x4) Hx Hypertension: Yes Hx Mitral Valve Prolapse: Yes Hx Pacemaker: No - PULMONARY Hx Bronchitis: Yes - NEUROLOGICAL Hx Dizziness: Yes Hx Transient Ischemic Attacks (TIA): Yes (20yrs ago) - HEENT Hx HEENT Problems: Yes (glasses) - RENAL Hx Kidney Stones: Yes Hx Renal Failure: Yes Other/Comment: Nephrostomy tubes bilateral, 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 - ENDOCRINE/METABOLIC Hx Endocrine Disorders: No - HEMATOLOGICAL/ONCOLOGICAL Hx Blood Disorders: Yes Hx Anemia: Yes (WITH BLOOD TRANSFUSION) Hx Cancer: Yes (Cervical with mets) Hx Chemotherapy: Yes (and radiation) Hx Metastesis: Yes (chest mass) - INTEGUMENTARY Hx Psoriasis: Yes - MUSCULOSKELETAL/RHEUMATOLOGICAL Hx Musculoskeletal Disorders: Yes (r ankle/ R WRIST FX R/T FALL 06/2015) Hx Falls: Yes Hx Fractures: Yes (right wrist, right ankle) - GASTROINTESTINAL Hx Gastrointestinal Disorders: Yes (GI bleed) Hx Diverticulitis: Yes Hx Gastroesophageal Reflux: Yes - GENITOURINARY/GYNECOLOGICAL Hx Genitourinary Disorders: Yes Hx Hematuria: Yes Hx Urinary Tract Infection: Yes Other/Comment: nephrostomy surgery - PSYCHIATRIC Hx Psychophysiologic Disorder: Yes Hx Anxiety: Yes Hx Depression: Yes Hx Emotional Abuse: No Hx Physical Abuse: No - SURGICAL HISTORY Hx Cardiac Catheterization: Yes Hx Coronary Stent: Yes Hx Hysterectomy: Yes Other/Comment: nephrostomy tubes,CARDIAC STENTS ,HYSTERECTOMY,RIGHT ANKLE FX, - ANESTHESIA Hx Anesthesia: Yes Hx Anesthesia Reactions: Yes (NAUSEA) Hx Malignant Hyperthermia: No Meds Allergies/Adverse Reactions: Allergies Allergy/AdvReac Type Severity Reaction Status Date / Time No Known Allergies Allergy Verified 05/27/18 21:14 - Medications Medications: Current Medications Acetaminophen (Tylenol 325mg Tab) 650 mg PO Q4H PRN PRN Reason: Pain, Mild (1-3) Aspirin (Ecotrin) 81 mg PO DAILY [facility] Last Admin: 06/03/18 09:13 Dose: 81 mg Benzocaine/Menthol (Cepacol Sore Throat) 1 devante MT Q2H PRN PRN Reason: Sore Throat Guaifenesin/Dextromethorphan (Robitussin Dm) 10 ml PO Q4H PRN PRN Reason: Cough Last Admin: 06/01/18 09:15 Dose: 10 ml Home Med (Home Med) 2 unit PO BID [facility] Last Admin: 06/03/18 09:33 Dose: 2 unit Azithromycin (Zithromax 500mg In Ns) 500 mg in 250 mls @ 167 mls/hr IVPB DAILY [facility]; Protocol Stop: 06/06/18 14:31 Last Admin: 06/03/18 09:18 Dose: 167 mls/hr Lidocaine HCl (Lidocaine 2% Viscous) 15 ml PO Q8H PRN PRN Reason: Other Last Admin: 06/01/18 10:45 Dose: 15 ml Metoprolol Tartrate (Lopressor) 25 mg PO BRKDIN [facility] Last Admin: 06/03/18 09:18 Dose: 25 mg Montelukast Sodium (Singulair) 10 mg PO HS [facility] Last Admin: 06/02/18 22:12 Dose: 10 mg Ondansetron HCl (Zofran Odt) 4 mg PO TID PRN PRN Reason: Nausea/Vomiting Oxycodone/Acetaminophen (Percocet 5/325 Mg Tab) 1 tab PO Q6 PRN PRN Reason: Pain, moderate (4-7) Stop: 06/04/18 02:37 Pantoprazole Sodium (Protonix Ec Tab) 40 mg PO 0600 [facility] Last Admin: 06/03/18 05:30 Dose: Not Given Sertraline HCl (Zoloft) 25 mg PO QAM [facility] Last Admin: 06/03/18 09:14 Dose: 25 mg Sucralfate (Carafate Oral Susp) 1 gm PO ACBD [facility] Last Admin: 06/03/18 09:13 Dose: 1 gm Triamcinolone Acetonide (Kenalog 0.1% In Orabase) 0 appl MT BID PRN PRN Reason: Inflammation Last Admin: 06/01/18 15:56 Dose: 1 applic Valacyclovir HCl (Valtrex) 500 mg PO BID [facility] Last Admin: 06/03/18 09:14 Dose: 500 mg Physical Exam - Constitutional Appears: Chronically Ill - Eye Exam Eye Exam: Normal appearance, PERRL - Neck Exam Neck exam: Positive for: Normal Inspection - Respiratory Exam Respiratory Exam: Decreased Breath Sounds, NORMAL BREATHING PATTERN - Cardiovascular Exam Cardiovascular Exam: REGULAR RHYTHM, +S1, +S2 - GI/Abdominal Exam GI & Abdominal Exam: Normal Bowel Sounds, Soft - Exam Additional comments: bilateral nephrostomy tubes, aptents Results - Vital Signs Recent Vital Signs: Last Vital Signs Temp 98.4 F 06/02/18 22:19 Pulse 92 H 06/03/18 09:18 Resp 21 06/02/18 22:19 BP 138/102 H 06/03/18 09:18 Pulse Ox 96 06/02/18 22:19 - Labs Result Diagrams: 06/03/18 07:20 06/03/18 07:20 Labs: Laboratory Results - last 24 hr 06/02/18 06/03/18 06/03/18 19:30 07:20 07:20 WBC 4.5 D RBC 4.01 Hgb 11.3 L Hct 36.0 MCV 89.8 MCH 28.2 MCHC 31.4 RDW 16.0 H Plt Count 199 MPV 9.8 Neut % (Auto) 76.7 H Lymph % (Auto) 10.0 L [place] % (Auto) 11.5 H Eos % (Auto) 0.9 L Baso % (Auto) 0.9 Lymph # (Auto) 0.5 L [place] # (Auto) 0.5 Eos # (Auto) 0.0 Baso # (Auto) 0.04 Absolute Neuts (auto) 3.47 PT INR APTT Sodium 142 Potassium 3.6 Chloride 107 Carbon Dioxide 26 Anion Gap 13 BUN 10 Creatinine 1.1 Est GFR ( Amer) 60 Est GFR (Non-Af Amer) 50 Random Glucose 87 Calcium 9.2 Total Bilirubin 0.3 AST 21 ALT 10 Alkaline Phosphatase 175 H Total Protein 6.7 Albumin 3.3 Globulin 3.4 Albumin/Globulin Ratio 1.0 L Stool Occult Blood Positive H 06/03/18 07:20 WBC RBC Hgb Hct MCV MCH MCHC RDW Plt Count MPV Neut % (Auto) Lymph % (Auto) [place] % (Auto) Eos % (Auto) Baso % (Auto) Lymph # (Auto) [place] # (Auto) Eos # (Auto) Baso # (Auto) Absolute Neuts (auto) PT 13.9 H INR 1.23 APTT 33.5 Sodium Potassium Chloride Carbon Dioxide Anion Gap BUN Creatinine Est GFR ( Amer) Est GFR (Non-Af Amer) Random Glucose Calcium Total Bilirubin AST ALT Alkaline Phosphatase Total Protein Albumin Globulin Albumin/Globulin Ratio Stool Occult Blood Assessment & Plan - Assessment and Plan (Free Text) Assessment: 67 year old female with history of metastatic cervical cancer ,HTN, radiation cy stitis, bilateral hydronephrosis,Watkins's esophagus,UTI's who is admitted with rectal bleeding, oral herpetic ulcers, back pain, Patient has low back pain. Describes as throbbing, 9/10. Refused Percocet, Morphine 4 mg IV given. Patients younger sister at bedside and present for advance care planning discussion. The patient has an incomplete Advance Directive which was done in April 2018. I met with her to [place] wishes and clarify her wishes.Benefits and burdens of CPR/intubation/ artificial feeding and dialysis explained. Questions answered. She does not want dialysis or artificial feeding or PEG tube. She is willing to have CPR/intubation but does not want life prolonged if her condition is irreversible. She does not want her life prolonged on machines. The patient initiated a new Advance Directive. Her sister's Anna Marie Clark and Hanh Brumfield are designated as health car proxies. The patient did not wish to continue goals of care discussion regarding her illness today Time spent in advance care planning, 30 minutes Plan: Gaols of care and advance care planning GI recs reviewed. Viscous lidocaine swish and swallow, Carafate,Valtrex, PPI, hepatic soft diet as tolerated, bowel regimen ID recs reviewed, continue Azithromycin Pain: Percocet for moderate pain, Morphine 4 mg IV for severe pain
[2018-06-03] MEDS: Morphine 4 mg/ml ISec IVP PRN ×4 (12:33→23:56)
--- NOTE | 2018-06-03 14:47 | CP.PCM.APN ---
Subjective - Date & Time of Evaluation Date of Evaluation: 06/03/18 Time of Evaluation: 11:30 - Subjective Subjective: pt seen and examined at bedside, pt asking for higher dose of morphine for back pain states 2mg isnt enough. pt does state she is tolerating her diet and at this time denies any son or cp, she does c/o back pain Review of Systems - Review of Systems All systems: reviewed and no additional remarkable complaints except Objective - Vital Signs/Intake and Output Vital Signs (last 24 hours): Temp Pulse Resp BP Pulse Ox 98.4 F 92 H 21 138/102 H 96 06/02/18 22:19 06/03/18 09:18 06/02/18 22:19 06/03/18 09:18 06/02/18 22:19 - Medications Medications: Current Medications Acetaminophen (Tylenol 325mg Tab) 650 mg PO Q4H PRN PRN Reason: Pain, Mild (1-3) Aspirin (Ecotrin) 81 mg PO DAILY [facility] Last Admin: 06/03/18 09:13 Dose: 81 mg Benzocaine/Menthol (Cepacol Sore Throat) 1 devante MT Q2H PRN PRN Reason: Sore Throat Guaifenesin/Dextromethorphan (Robitussin Dm) 10 ml PO Q4H PRN PRN Reason: Cough Last Admin: 06/01/18 09:15 Dose: 10 ml Home Med (Home Med) 2 unit PO BID [facility] Last Admin: 06/03/18 09:33 Dose: 2 unit Azithromycin (Zithromax 500mg In Ns) 500 mg in 250 mls @ 167 mls/hr IVPB DAILY [facility]; Protocol Stop: 06/06/18 14:31 Last Admin: 06/03/18 09:18 Dose: 167 mls/hr Lidocaine HCl (Lidocaine 2% Viscous) 15 ml PO Q8H PRN PRN Reason: Other Last Admin: 06/01/18 10:45 Dose: 15 ml Metoprolol Tartrate (Lopressor) 25 mg PO BRKDIN [facility] Last Admin: 06/03/18 09:18 Dose: 25 mg Montelukast Sodium (Singulair) 10 mg PO HS [facility] Last Admin: 06/02/18 22:12 Dose: 10 mg Morphine Sulfate (Morphine) 4 mg IVP Q3 PRN PRN Reason: Pain, severe (8-10) Last Admin: 06/03/18 12:33 Dose: 4 mg Ondansetron HCl (Zofran Odt) 4 mg PO TID PRN PRN Reason: Nausea/Vomiting Oxycodone/Acetaminophen (Percocet 5/325 Mg Tab) 1 tab PO Q6 PRN PRN Reason: Pain, moderate (4-7) Stop: 06/04/18 02:37 Pantoprazole Sodium (Protonix Ec Tab) 40 mg PO 0600 [facility] Last Admin: 06/03/18 05:30 Dose: Not Given Sertraline HCl (Zoloft) 25 mg PO QAM [facility] Last Admin: 06/03/18 09:14 Dose: 25 mg Sucralfate (Carafate Oral Susp) 1 gm PO ACBD [facility] Last Admin: 06/03/18 09:13 Dose: 1 gm Triamcinolone Acetonide (Kenalog 0.1% In Orabase) 0 appl MT BID PRN PRN Reason: Inflammation Last Admin: 06/01/18 15:56 Dose: 1 applic Valacyclovir HCl (Valtrex) 500 mg PO BID [facility] Last Admin: 06/03/18 09:14 Dose: 500 mg - Labs Labs: 06/03/18 07:20 06/03/18 07:20 PT 13.9 SECONDS (9.4-12.5) H 06/03/18 07:20 INR 1.23 06/03/18 07:20 APTT 33.5 Seconds (26.9-38.3) 06/03/18 07:20 - Constitutional Appears: No Acute Distress - Eye Exam Eye Exam: Normal appearance Pupil Exam: NORMAL ACCOMODATION - Respiratory Exam Respiratory Exam: Decreased Breath Sounds, NORMAL BREATHING PATTERN - Cardiovascular Exam Cardiovascular Exam: +S1, +S2 - GI/Abdominal Exam GI & Abdominal Exam: Soft, Normal Bowel Sounds - Extremities Exam Extremities Exam: Normal Capillary Refill - Neurological Exam Neurological Exam: Alert, Awake, Oriented x3 - Psychiatric Exam Psychiatric exam: Normal Mood - Skin Skin Exam: Dry, Intact Assessment and Plan - Assessment and Plan (Free Text) Plan: ITS Impressions Abdomen/Pelvis CT 06/01/18 13:14 IMPRESSION: 1. Mild circumferential mural thickening in the left hemicolon and severe circumferential mural thickening in the rectum which may represent nonspecific acute infectious/inflammatory colitis and proctitis. Given severe circumferential mural thickening in the rectum, underlying neoplasm is not entirely excluded. Clinical follow-up is advised and correlation with proctoscopy and endoscopic may be performed if clinically indicated. 2. No other significant interval change since the prior examination. Microbiology 06/02/18 19:30 Stool C. difficile Antigen & Toxins A,B - Final 06/01/18 06:00 Urine Random Urine Culture - Final Escherichia Coli Enterococcus Faecalis 67 yr old female with pmh sif for stage IV cervical ca with mediastinal involvement, ckd with nephrostomy tubes, Barretts esophagus, e.coli uti ,cad with stents who was admitted with c/o sore buccal mucosa and rectal bleed and stool positive for OB patietn is now being evalauted by Gi with Ct showing : Mild circumferential mural thickening in the left hemicolon and severe circumferential mural thickening in the rectum which may represent nonspecific acute infectious/inflammatory colitis and proctitis. Given severe circumferential mural thickening in the rectum, underlying neoplasm is not entirely excluded pt also has ID eval with treatment in progress on Iv antibiotics regimen as well palliative care consultation in progress. All Active Problems Rectal bleed (Acute) Abdominal pain (Acute) Anemia (Acute) Closed fracture of ankle (Acute) Elevated brain natriuretic peptide (BNP) level (Acute) Hematochezia (Acute) Hematuria (Acute) Near syncope (Acute) Nephrostomy tube displaced (Acute) Oral pain (Acute) Renal failure (Acute) Sepsis (Acute) Shortness of breath (Acute) Stercoral ulcer of large intestine (Acute) UTI (urinary tract infection) (Acute) Chronic kidney disease (CKD) (Chronic) Coronary artery disease (Chronic) Cough (Chronic) Dysphagia (Chronic) H/O nephrostomy (Chronic) Metastatic cancer (Chronic) Renal failure, chronic (Chronic) will continue to follow clinical course. Nicol Mcclure BPCI/TIC - BPCIA/TIC Educated pt/family on BPCIA/CIR/Med to Bed Programs: Yes Flyers given, including CMS Beneficiary letter: Yes Pt/family verbalized understanding & agreed to program: Yes (pt already followed for uti per discussion with [employer])
[2018-06-03] MEDS: Vancomycin 25 MG/ML PO SCH ×2 (17:34→21:55)
[2018-06-03] MEDS ORDERED: POLYETHYLENE GLYCOL 3350 17 GM/Dose PACKET PO ONE (21:12)
[2018-06-04] MEDS: Pantoprazole 40 mg EC Tab PO SCH (07:34)
[2018-06-04 08:01] LABS: HEMOGLOBIN 10.8 g/dL (12.0-16.0); MEAN CELL VOLUME 91.2 fl (80.0-105.0); MEAN CORPUSCULAR HGB CONC 30.7 g/dl (31.0-37.0); MEAN PLATELET VOLUME 9.3 fl (7.0-11.0); RBC 3.86 10^6/uL (3.5-6.1); WHITE BLOOD COUNT 3.7 10^3/uL (4.5-11.0)
[2018-06-04] MEDS: Sucralfate 1 gm/10 ml Oral Susp UD PO SCH ×2 (08:13→17:11)
--- NOTE | 2018-06-04 08:55 | PN ---
DATE: 06/04/2018 ONCOLOGY PROGRESS NOTE LOCATION: The patient is in room 574, bed 2. SUBJECTIVE: The patient is seen and examined at the bedside, complaining of significant amount of pain, naturally relieved by the morphine. requesting me to increase the morphine from 2 mg to 4 mg and to cut it down to every three hours. The pain is mostly in the suprapubic area, and she tells me that she went to the bathroom to have bowel movement, but she passed small amounts of hard stool, and that the stool did test positive for blood. She is hardly passing any urine from the bladder as she has bilateral nephrostomy tubes where the urine is clear draining clear urine to the bilateral nephrostomy tubes. The patient states she has pelvic and suprapubic spasmodic pain suggestive of issues with the bladder as well. The patient had urine specimen obtained through the nephrostomy collecting tubes which could be contaminated, but dated 05/16/2018, there was E. coli showing greater than 100,000 colonies. I have spoken with Dr. Man, and he had felt that it could be a contaminant unless we do a straight cath or take the urine directly from the nephrostomy tube. We may have a difficult time telling this real or a contaminant at this point in time. REVIEW OF SYSTEMS: Twelve-point review of systems is conducted. They were negative except what is mentioned as above. PHYSICAL EXAMINATION: VITAL SIGNS: Stable. T-max is 98.4, pulse is 92, respirations 21, blood pressure is 138/102, and pulse ox is 96. HEENT: Head is normocephalic and atraumatic. Conjunctivae pale. Sclerae are anicteric. Pupils are equally reactive to light and accommodation. Examination of the oropharynx reveals poor dentition. Tongue is moist. No ulcerations are noted. NECK: Supple. There is no adenopathy. No jugular venous distention noted. LUNGS: Clear to percussion and auscultation without any significant findings at this time. Left breast edema and left arm edema are significantly reduced. CARDIOVASCULAR SYSTEM: Reveals S1. PMI revealed the fifth intercostal space. S1 and S2 are normal. No gallop or murmur is heard. ABDOMEN: Mildly protuberant, soft, and nontender in the epigastric area. The patient has suprapubic tenderness in and around the site where the urinary bladder would be. The patient complains of spasmodic cramps in that area. Sometimes the pain is that, that she feels the morphine is not helping her. There is no rebound or rigidity noted at this time. No pulsatile masses are palpated. GENITOURINARY: Deferred. RECTAL: Deferred. EXTREMITIES: Reveal no cyanosis, clubbing, or edema. NEUROLOGIC: Reveals higher functions to be normal. PSYCHIATRIC: Reveals normal affect and normal mood. SKIN: Skin turgor is decreased. No skin lesions per se are noted. LABORATORY DATA: Reveals a white count of 4.5, hemoglobin 11.3, hematocrit 36, platelet count of 199,000. Sodium is 142, potassium is 3.6, chloride is 107, CO2 is 26, BUN is 10, creatinine is 1.1, blood sugar is 87. PT/INR are within normal limits. MEDICATIONS: The patient's medications were reviewed. Tylenol 650 mg every 4 hours p.r.n., Ecotrin 81 mg daily. She is on Robitussin DM every 4 hours p.r.n. for coughing. She is on tranexamic acid 650 mg p.o. b.i.d. She is on Zithromax IV piggyback daily. She is on lidocaine 15 mL every 8 hours topically to the painful areas especially in the perianal and perirectal region, metoprolol 25 mg p.o. daily. Montelukast, Singulair 10 mg p.o. daily. Morphine sulphate 2 mg IV every 4 hours, which has been increased to 4 mg. Zofran 4 mg p.o. t.i.d. p.r.n., Percocet 5/325 one tablet every 6 hours p.r.n. Pantoprazole 20 mg p.o. daily, Zoloft 25 mg daily, Kenalog 0.1% in Orabase for her ulcers in the mouth, and Valtrex 500 mg p.o. b.i.d. 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 Completed radiation about two weeks ago, admitted just a week before this for progressive dysphagia and difficulty swallow, ulcers in the mouth, treated empirically for herpetic esophagitis, improved. The patient is on a pureed diet, fluids and semi-solids, and she still has difficulty in swallowing, and she came in now with new onset of lower abdominal pain and rectal bleeding. The patient refused exam for the same. There is presumed stercoral ulcer versus radiation related ectasia in the rectum that may be causing from the bowel. 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 PLAN: We will treat the patient as aggressively as possible for her odynophagia, rectal pain, and her bladder spasms. I have requested for an ultrasound of the bladder. Also requested Urology, Dr. Aburto, to see her in consultation. Spoke with Dr. Man of trying to get a clean catch urine specimen, so we can make more finest conclusions. In the meantime, the patient will continue Dulcolax and MiraLax for further constipation prevention. Diet as tolerated. Continue to monitor the hemoglobin and hematocrit. Please make a note, this is a complex patient with multiple comorbid medical issues. Time spent with the patient organizing all the facts, talking to the nurses, speaking to the various consultants more than 45 minutes. Continue PPI for now. I spoke to Dr. Sumner at great length, and he is going to monitor the patient over the next 48 hours. Gudelia Ford MD
[2018-06-04] MEDS: Morphine 4 mg/ml ISec IVP PRN ×4 (09:44→20:59)
[2018-06-04] MEDS: TRANEXAMIC ACID PO SCH ×2 (09:45→17:12)
[2018-06-04] MEDS: Azithromycin 500MG/NS 250ml 500 MG/250 ML BAG IVPB SCH (09:46)
[2018-06-04] MEDS: Vancomycin 25 MG/ML PO SCH ×4 (09:52→22:27)
--- NOTE | 2018-06-04 14:21 | PCM.URO ---
Urology Progress Note - Objective Lab Studies: Reviewed (plans to follow but pt wont allow a cystoscopy) Lab Results Last 24 Hours: Laboratory Results - last 24 hr 06/04/18 07:40 WBC 3.7 L RBC 3.86 Hgb 10.8 L Hct 35.2 L MCV 91.2 MCH 28.0 MCHC 30.7 L RDW 16.0 H Plt Count 189 MPV 9.3 Intake & Output: Intake & Output 06/03/18 06/04/18 06/04/18 18:59 06:59 18:59 Intake Total 600 840 Balance 600 840 Intake: Oral 600 840 Other: # Voids Urine, Voided 2 2 # Bowel Movements 2 1 Vital Signs: Vital Signs - 24 hr 06/03/18 06/03/18 06/04/18 17:33 23:02 08:20 Temperature 98.6 F Pulse Rate 86 103 H Respiratory 20 Rate Blood Pressure 158/99 H 163/97 H 169/113 H O2 Sat by Pulse 93 L Oximetry
--- NOTE | 2018-06-04 16:21 | CP.PCM.PN ---
Subjective - Date & Time of Evaluation Date of Evaluation: 06/04/18 Time of Evaluation: 12:40 - Subjective Subjective: Afebrile, but having discomfort, no diarrhea currently. Cough is decreased. Objective - Vital Signs/Intake and Output Vital Signs (last 24 hours): Temp Pulse Resp BP Pulse Ox 98.6 F 103 H 20 169/113 H 93 L 06/03/18 23:02 06/04/18 08:20 06/03/18 23:02 06/04/18 08:20 06/03/18 23:02 Intake and Output: 06/04/18 06/04/18 06:59 18:59 Intake Total 840 480 Balance 840 480 - Medications Medications: Current Medications Acetaminophen (Tylenol 325mg Tab) 650 mg PO Q4H PRN PRN Reason: Pain, Mild (1-3) Aspirin (Ecotrin) 81 mg PO DAILY [facility] Last Admin: 06/04/18 09:46 Dose: 81 mg Benzocaine/Menthol (Cepacol Sore Throat) 1 devante MT Q2H PRN PRN Reason: Sore Throat Guaifenesin/Dextromethorphan (Robitussin Dm) 10 ml PO Q4H PRN PRN Reason: Cough Last Admin: 06/01/18 09:15 Dose: 10 ml Home Med (Home Med) 2 unit PO BID [facility] Last Admin: 06/04/18 09:45 Dose: 2 unit Azithromycin (Zithromax 500mg In Ns) 500 mg in 250 mls @ 167 mls/hr IVPB DAILY [facility]; Protocol Stop: 06/06/18 14:31 Last Admin: 06/04/18 09:46 Dose: 167 mls/hr Lidocaine (Lidocaine 5%) 0 gm TOP BID [facility] Lidocaine HCl (Lidocaine 2% Viscous) 15 ml PO Q8H PRN PRN Reason: Other Last Admin: 06/01/18 10:45 Dose: 15 ml Metoprolol Tartrate (Lopressor) 25 mg PO BRKDIN [facility] Last Admin: 06/04/18 08:20 Dose: 25 mg Montelukast Sodium (Singulair) 10 mg PO HS [facility] Last Admin: 06/03/18 21:55 Dose: 10 mg Morphine Sulfate (Morphine) 4 mg IVP Q3 PRN PRN Reason: Pain, severe (8-10) Last Admin: 06/04/18 13:49 Dose: 4 mg Ondansetron HCl (Zofran Odt) 4 mg PO TID PRN PRN Reason: Nausea/Vomiting Pantoprazole Sodium (Protonix Ec Tab) 40 mg PO 0600 [facility] Last Admin: 06/04/18 07:34 Dose: Not Given Sertraline HCl (Zoloft) 25 mg PO QAM [facility] Last Admin: 06/04/18 09:46 Dose: 25 mg Sucralfate (Carafate Oral Susp) 1 gm PO ACBD [facility] Last Admin: 06/04/18 08:13 Dose: 1 gm Triamcinolone Acetonide (Kenalog 0.1% In Orabase) 0 appl MT BID PRN PRN Reason: Inflammation Last Admin: 06/01/18 15:56 Dose: 1 applic Valacyclovir HCl (Valtrex) 500 mg PO BID [facility] Last Admin: 06/04/18 09:45 Dose: 500 mg Vancomycin HCl (Vancocin 25 Mg/Ml (Oral Use)) 125 mg PO QID [facility]; Protocol Last Admin: 06/04/18 09:52 Dose: 125 mg - Labs Labs: 06/04/18 07:40 06/03/18 07:20 PT 13.9 SECONDS (9.4-12.5) H 06/03/18 07:20 INR 1.23 06/03/18 07:20 APTT 33.5 Seconds (26.9-38.3) 06/03/18 07:20 - Constitutional Appears: Chronically Ill - Head Exam Head Exam: NORMAL INSPECTION - Respiratory Exam Respiratory Exam: Decreased Breath Sounds - Cardiovascular Exam Cardiovascular Exam: +S1, +S2 - GI/Abdominal Exam GI & Abdominal Exam: Soft. absent: Tenderness Assessment and Plan - Assessment and Plan (Free Text) Plan: Assessment R/O pertussis consider C. diff. associated diarrhea R/O UTI in this patient with neprhostomy tube buccal, oral ulcer, R/O related to radiation, R/O HSV, R/O aphthous ulcers, slowly improving S/P complicated UTI with E. coli and E. faecalis, in this patient with i ndwelling right sided nephrostomy tube presenting with hematuria history of Urinary tract infection with Klebsiella oxytoca history of pseudomonas, Klebsiella and Enterococcus faecalis UTI enterococcus and pseudomonas UTI in the past cervical cancer S/P chemotherapy and radiation therapy with history or radiation cystitis history of transient ischemic attack GERD coronary artery disease sleep apnea history of psoriasis history of diverticulitis history of depression chronic renal failure S/P nephrostomy tube placement Plan continue Valtrex and Zithromax discussed with Dr. Ford - will need better urine sampling to see if there is bacteria in the urine (current urine cx is taken from the nephrostomy bag which is most likely contaminated and not a clean catch
[2018-06-04] MEDS: Lidocaine 5% Oint(35 gm) TOP SCH (17:12)
[2018-06-04] MEDS: Triamcinolone 0.1% Orabase TUBE MT PRN (17:12)
[2018-06-04] MEDS ORDERED: Lidocaine 5% Oint(35 gm) TOP SCH (18:00)
--- NOTE | 2018-06-04 18:56 | CP.PCM.PN ---
<Josie Bowen - Last Filed: 06/04/18 18:57> Subjective - Date & Time of Evaluation Date of Evaluation: 06/04/18 Time of Evaluation: 08:00 - Subjective Subjective: PGY5 GI Follow-up Note Pt seen and examined bedside Still notes having some back pain +BM denies any rectal bleeding reports having tinge of red blood with BM ROS: 12 point ROS conducted, neg other than above Objective - Vital Signs/Intake and Output Vital Signs (last 24 hours): Temp Pulse Resp BP Pulse Ox 98 F 97 H 18 155/93 H 98 06/04/18 17:25 06/04/18 17:25 06/04/18 17:25 06/04/18 17:25 06/04/18 17:25 Intake and Output: 06/04/18 06/04/18 06:59 18:59 Intake Total 840 480 Balance 840 480 - Medications Medications: Current Medications Acetaminophen (Tylenol 325mg Tab) 650 mg PO Q4H PRN PRN Reason: Pain, Mild (1-3) Aspirin (Ecotrin) 81 mg PO DAILY [facility] Last Admin: 06/04/18 09:46 Dose: 81 mg Benzocaine/Menthol (Cepacol Sore Throat) 1 devante MT Q2H PRN PRN Reason: Sore Throat Guaifenesin/Dextromethorphan (Robitussin Dm) 10 ml PO Q4H PRN PRN Reason: Cough Last Admin: 06/01/18 09:15 Dose: 10 ml Home Med (Home Med) 2 unit PO BID [facility] Last Admin: 06/04/18 17:12 Dose: 2 unit Azithromycin (Zithromax 500mg In Ns) 500 mg in 250 mls @ 167 mls/hr IVPB DAILY [facility]; Protocol Stop: 06/06/18 14:31 Last Admin: 06/04/18 09:46 Dose: 167 mls/hr Lidocaine (Lidocaine 5%) 0 gm TOP BID [facility] Last Admin: 06/04/18 17:12 Dose: 1 applic Lidocaine HCl (Lidocaine 2% Viscous) 15 ml PO Q8H PRN PRN Reason: Other Last Admin: 06/01/18 10:45 Dose: 15 ml Metoprolol Tartrate (Lopressor) 25 mg PO BRKDIN [facility] Last Admin: 06/04/18 17:19 Dose: 25 mg Montelukast Sodium (Singulair) 10 mg PO HS [facility] Last Admin: 06/03/18 21:55 Dose: 10 mg Morphine Sulfate (Morphine) 4 mg IVP Q3 PRN PRN Reason: Pain, severe (8-10) Last Admin: 06/04/18 17:13 Dose: 4 mg Ondansetron HCl (Zofran Odt) 4 mg PO TID PRN PRN Reason: Nausea/Vomiting Pantoprazole Sodium (Protonix Ec Tab) 40 mg PO 0600 [facility] Last Admin: 06/04/18 07:34 Dose: Not Given Sertraline HCl (Zoloft) 25 mg PO QAM [facility] Last Admin: 06/04/18 09:46 Dose: 25 mg Sucralfate (Carafate Oral Susp) 1 gm PO ACBD [facility] Last Admin: 06/04/18 17:11 Dose: 1 gm Triamcinolone Acetonide (Kenalog 0.1% In Orabase) 0 appl MT BID PRN PRN Reason: Inflammation Last Admin: 06/04/18 17:12 Dose: 1 applic Valacyclovir HCl (Valtrex) 500 mg PO BID [facility] Last Admin: 06/04/18 17:11 Dose: 500 mg Vancomycin HCl (Vancocin 25 Mg/Ml (Oral Use)) 125 mg PO QID [facility]; Protocol Last Admin: 06/04/18 18:24 Dose: 125 mg - Labs Labs: 06/04/18 07:40 06/03/18 07:20 PT 13.9 SECONDS (9.4-12.5) H 06/03/18 07:20 INR 1.23 06/03/18 07:20 APTT 33.5 Seconds (26.9-38.3) 06/03/18 07:20 - Constitutional Appears: Non-toxic, No Acute Distress - Eye Exam Eye Exam: Normal appearance - ENT Exam ENT Exam: Mucous Membranes Moist, Normal Exam - Neck Exam Neck Exam: Normal Inspection - Respiratory Exam Respiratory Exam: Clear to Ausculation Bilateral, NORMAL BREATHING PATTERN. absent: Rales, Rhonchi, Wheezes, Respiratory Distress - Cardiovascular Exam Cardiovascular Exam: REGULAR RHYTHM, +S1, +S2 - GI/Abdominal Exam GI & Abdominal Exam: Soft, Normal Bowel Sounds. absent: Distended, Firm, Guarding, Rigid, Tenderness, Organomegaly, Pulsatile Mass, Rebound - Rectal Exam Rectal Exam: Deferred Additional comments: pt again refused rectal exam in the setting of rectal bleeding - Extremities Exam Extremities Exam: absent: Joint Swelling, Pedal Edema - Neurological Exam Neurological Exam: Alert, Awake, Oriented x3 - Psychiatric Exam Psychiatric exam: Normal Affect, Normal Mood - Skin Skin Exam: Dry, Intact, Normal Color, Warm Assessment and Plan - Assessment and Plan (Free Text) Assessment: Patient is a 67yo female with PMHx significant for cervical cancer with metastases to lungs s/p chemoXRT, CAD s/p PCI, CKD with h/o nephrostomy tube placement, radiation cystitis, psoriasis, depression, Watkins's esophagus and stercoral ulceration who presented to the hospital with rectal bleeding -Rectal bleeding, refusing examination - presumed 2/2 stercoral ulceration vs radiation proctitis -Short segment Watkins's esophagus without dysplasia -Cervical cancer with metastases to lung -CAD -CKD Plan: -Patient with odynophagia and rectal pain - refusing Lidocaine swish/swallow and will not allow rectal examination or administration of medication rectally (such as lidocaine) -Continue stool softeners - Dulcolax and Miralax to prevent further irritation of rectum -pt was again refused rectal exam, or endoscopic exam -Diet as tolerated -hgb stable, would not transfuse at this time -continue PPI D/W Dr. Sumner <Harvey Sumner V - Last Filed: 06/05/18 00:10> Objective - Vital Signs/Intake and Output Vital Signs (last 24 hours): Temp Pulse Resp BP Pulse Ox 98.5 F 89 18 156/101 H 98 06/04/18 21:58 06/04/18 21:58 06/04/18 21:58 06/04/18 21:58 06/04/18 21:58 Intake and Output: 06/04/18 06/05/18 18:59 06:59 Intake Total 480 720 Balance 480 720 - Medications Medications: Current Medications Acetaminophen (Tylenol 325mg Tab) 650 mg PO Q4H PRN PRN Reason: Pain, Mild (1-3) Aspirin (Ecotrin) 81 mg PO DAILY [facility] Last Admin: 06/04/18 09:46 Dose: 81 mg Benzocaine/Menthol (Cepacol Sore Throat) 1 devante MT Q2H PRN PRN Reason: Sore Throat Guaifenesin/Dextromethorphan (Robitussin Dm) 10 ml PO Q4H PRN PRN Reason: Cough Last Admin: 06/01/18 09:15 Dose: 10 ml Home Med (Home Med) 2 unit PO BID [facility] Last Admin: 06/04/18 17:12 Dose: 2 unit Azithromycin (Zithromax 500mg In Ns) 500 mg in 250 mls @ 167 mls/hr IVPB DAILY [facility]; Protocol Stop: 06/06/18 14:31 Last Admin: 06/04/18 09:46 Dose: 167 mls/hr Lidocaine (Lidocaine 5%) 0 gm TOP BID [facility] Last Admin: 06/04/18 17:12 Dose: 1 applic Lidocaine HCl (Lidocaine 2% Viscous) 15 ml PO Q8H PRN PRN Reason: Other Last Admin: 06/01/18 10:45 Dose: 15 ml Metoprolol Tartrate (Lopressor) 25 mg PO BRKDIN [facility] Last Admin: 06/04/18 17:19 Dose: 25 mg Montelukast Sodium (Singulair) 10 mg PO HS [facility] Last Admin: 06/04/18 20:59 Dose: 10 mg Morphine Sulfate (Morphine) 4 mg IVP Q3 PRN PRN Reason: Pain, severe (8-10) Last Admin: 06/04/18 20:59 Dose: 4 mg Ondansetron HCl (Zofran Odt) 4 mg PO TID PRN PRN Reason: Nausea/Vomiting Pantoprazole Sodium (Protonix Ec Tab) 40 mg PO 0600 [facility] Last Admin: 06/04/18 07:34 Dose: Not Given Sertraline HCl (Zoloft) 25 mg PO QAM [facility] Last Admin: 06/04/18 09:46 Dose: 25 mg Sucralfate (Carafate Oral Susp) 1 gm PO ACBD [facility] Last Admin: 06/04/18 17:11 Dose: 1 gm Triamcinolone Acetonide (Kenalog 0.1% In Orabase) 0 appl MT BID PRN PRN Reason: Inflammation Last Admin: 06/04/18 17:12 Dose: 1 applic Valacyclovir HCl (Valtrex) 500 mg PO BID [facility] Last Admin: 06/04/18 17:11 Dose: 500 mg Vancomycin HCl (Vancocin 25 Mg/Ml (Oral Use)) 125 mg PO QID [facility]; Protocol Last Admin: 06/04/18 22:27 Dose: 125 mg - Labs Labs: 06/04/18 07:40 06/03/18 07:20 PT 13.9 SECONDS (9.4-12.5) H 06/03/18 07:20 INR 1.23 06/03/18 07:20 APTT 33.5 Seconds (26.9-38.3) 06/03/18 07:20 Attending/Attestation - Attestation I have personally seen and examined this patient.: Yes I have fully participated in the care of the patient.: Yes I have reviewed all pertinent clinical information, including history, physical exam and plan: Yes Notes (Text): This is an addendum to GI progress report dictated by the GI Fellow. The patient was seen and examined earlier. Medical records, lab studies, imagings were reviewed. Last 24 hours events reviewed. Agreed with the above treatment plan as outlined in GI Fellow 's notes with the addition of the following 06/05/18 00:10
[2018-06-05] MEDS: Pantoprazole 40 mg EC Tab PO SCH (06:31)
[2018-06-05] MEDS: Morphine 2 mg/ml ISec IVP PRN ×6 (07:38→23:10)
[2018-06-05 08:09] LABS: ALB/GLOB RATIO 0.9 (1.1-1.8); ALBUMIN 3.4 g/dL (3.0-4.8); CALCIUM 9.1 mg/dL (8.4-10.5)
[2018-06-05] MEDS: Vancomycin 25 MG/ML PO SCH ×4 (09:10→21:00)
[2018-06-05] MEDS: Sucralfate 1 gm/10 ml Oral Susp UD PO SCH ×2 (09:11→16:50)
[2018-06-05] MEDS: TRANEXAMIC ACID PO SCH ×2 (09:11→17:55)
[2018-06-05] MEDS: Lidocaine 5% Oint(35 gm) TOP SCH ×2 (09:12→17:56)
[2018-06-05] MEDS: Azithromycin 500MG/NS 250ml 500 MG/250 ML BAG IVPB SCH (09:12)
[2018-06-05] MEDS ORDERED: POLYETHYLENE GLYCOL 3350 17 GM/Dose PACKET PO PRN (16:25)
[2018-06-05 22:11] VITALS: RESP 0; TEMP 0; O2SAT 0
--- NOTE | 2018-06-06 00:08 | PN ---
DATE: 06/05/2018 ONCOLOGY PROGRESS NOTE LOCATION: Patient is in room 574, bed 2. SUBJECTIVE: Patient is examined at the bedside, still has some back pain and suprapubic pain appears to be improving. Patient had some bowel movements. Denies any significant rectal bleeding. Still noticed occasional tinge of blood with bowel movements. Overall, he is much improved. His spasm and pain in suprapubic region appears to be better. Left arm swelling and left breast edema have substantially decreased post radiation. REVIEW OF SYSTEMS: A 12-system review of systems conducted with negative except for what is mentioned in the HPI. PHYSICAL EXAMINATION: GENERAL: Patient is awake, alert, oriented, in no acute distress. VITAL SIGNS: T max of 98.4, pulse of 97, respirations 18, blood pressure 155/93, and pulse ox is 98. HEENT: Conjunctivae pale. Sclerae are anicteric. Pupils are equally reactive to light and accommodation. Oropharynx reveals poor dentition. No oropharyngeal lesions are noted. Tongue is moist. No ulcerations are noted. NECK: Supple. There is no adenopathy. LUNGS: Clear to percussion and auscultation without any wheezes, rhonchi, or rales. CARDIOVASCULAR: Reveals PMI to be in the fifth intercostal space inside the midclavicular line. S1 and S2 are normal. No gallop or murmur is heard. ABDOMEN: Soft and nontender. No rebound, rigidity, or guarding is noted. Previously noted suprapubic tenderness is better. Patient denies any other abdominal complaints at this time. /RECTAL: Deferred. Patient refused rectal exam in the past in the setting of rectal bleeding. EXTREMITIES: Revealed no cyanosis, clubbing, or edema. NEUROLOGIC: Reveals higher functions to be normal. No focal deficits are noted. SKIN: Skin turgor is decreased. No skin lesions are noted. LABORATORY DATA: Reveals a white count of 3.7, hemoglobin 10.8, hematocrit 35.2, and platelet count of 189,000. Sodium is 142, potassium is 3.6, chloride is 107, CO2 is 26, BUN is 10, creatinine is 1.1, blood sugar is 87. PT/INR is normal. ASSESSMENT, NOTES, AND PLAN: This is a 67-year-old female with metastatic stage IV carcinoma of the cervix with mediastinal metastases status post radiation for obstructive disease causing hemoptysis also causing obstructive symptoms related to odynophagia, now better since radiation completed. Patient is also on concurrent chemotherapy as well with combination of carbo/Taxol and Avastin. Patient when she was admitted on the last admission, was admitted with severe odynophagia, mouth sores, and ulcers, probably thought to be herpetic, was treated with acyclovir, improved. Upper GI series including Barium swallow did not show any mechanical obstruction. Patient has bilateral nephrostomy related to her obstruction in the bladder secondary to radiation cystitis and the nephrostomy was done for mainly urinary diversion, subsequently had irritation of the bladder and nephrostomy tubes have been exchanged every 4 months or so for the past 4-5 years. Patient has diagnosis of rectal bleeding which in the past was documented to be related to; 1. Vascular ectasia on the rectum. 2. Rectal hemorrhoids. 3. Excoriation related to constipation which in turn is related to narcotic therapy. History of short-segment Watkins's esophagus without dysplasia, coronary artery disease, chronic kidney disease. Plan, patient's diet has been gradually advanced. She still takes Magic Mouthwash and Carafate for her odynophagia which Is gradually improving. Patient is on a combination of several stool softeners including Dulcolax and MiraLax for constipation prevention. Patient's diet has been advanced to a full diet which is heart-healthy diet. Hemoglobin and hematocrit are stable at this time. Leukopenia which was related to the chemotherapy is gradually improving at this point. at this time is 8.47. Routine post examination instructions have been given to the patient. Time spent with the patient greater than 45 minutes. Patient continues to do well. Our plan is to discharge the patient in the morning. Follow her up as an outpatient and then we will plan on continuing treatments as an outpatient. Please make a note, this is a complex patient with multiple comorbid medical issues. Gudelia Ford MD
--- NOTE | 2018-06-06 00:36 | CON ---
DATE: 06/03/2018 UROLOGY CONSULTATION REASON FOR CONSULTATION: Hematuria. HISTORY OF PRESENT ILLNESS: Ms. Kitchen is a very pleasant lady, she is 67 years old now. She has cervical cancer but has lately been stable. From a Urology standpoint, she has bilateral nephrostomy tubes and she apparently has gross hematuria via the urethra. It is . PAST MEDICAL AND SURGICAL HISTORY: As listed above, others unremarkable. REVIEW OF SYSTEMS: As listed above. SOCIAL HISTORY: She is . PHYSICAL EXAMINATION: GENERAL: A well-nourished female, currently resting comfortably. GENITOURINARY: Nephrostomy tubes seem to be draining clear yellow urine. PELVIC: Deferred now at the patient's request. DIAGNOSIS: Hematuria. ASSESSMENT AND PLAN: The patient is a very pleasant lady, 67 years old. She has bilateral nephrostomy tubes, these have been working well and draining. We will monitor that. Regarding gross hematuria, I discussed with the patient workup. She does not want a pelvic exam . She is not sure if it is bleeding from the urethra or bladder or the rectum. From our end, I think she should be evaluated further. Plan is as follows: 1. No intervention for now. 2. Urine culture and cytology. 3. I am going to encourage the patient just to allow me further at least an exam. Hubert Aburto MD
[2018-06-06] MEDS: Morphine 2 mg/ml ISec IVP PRN ×3 (03:26→12:02)
--- NOTE | 2018-06-06 04:29 | CP.PCM.PN ---
Subjective - Date & Time of Evaluation Date of Evaluation: 06/06/18 Time of Evaluation: 04:27 - Subjective Subjective: TBD seen dry skin, itching Rx, benadryl. Objective - Vital Signs/Intake and Output Vital Signs (last 24 hours): Temp Pulse Resp BP Pulse Ox 0 F L 0 L 0 L 156/101 H 0 L 06/05/18 22:00 06/05/18 22:00 06/05/18 22:00 06/04/18 21:58 06/05/18 22:00 Intake and Output: 06/05/18 06/06/18 18:59 06:59 Intake Total 480 480 Balance 480 480 - Medications Medications: Current Medications Acetaminophen (Tylenol 325mg Tab) 650 mg PO Q4H PRN PRN Reason: Pain, Mild (1-3) Aspirin (Ecotrin) 81 mg PO DAILY [facility] Last Admin: 06/05/18 09:11 Dose: 81 mg Benzocaine/Menthol (Cepacol Sore Throat) 1 devante MT Q2H PRN PRN Reason: Sore Throat Guaifenesin/Dextromethorphan (Robitussin Dm) 10 ml PO Q4H PRN PRN Reason: Cough Last Admin: 06/01/18 09:15 Dose: 10 ml Home Med (Home Med) 2 unit PO BID [facility] Last Admin: 06/05/18 17:55 Dose: 2 unit Azithromycin (Zithromax 500mg In Ns) 500 mg in 250 mls @ 167 mls/hr IVPB DAILY [facility]; Protocol Stop: 06/06/18 14:31 Last Admin: 06/05/18 09:12 Dose: 167 mls/hr Lidocaine (Lidocaine 5%) 0 gm TOP BID [facility] Last Admin: 06/05/18 17:56 Dose: Not Given Lidocaine HCl (Lidocaine 2% Viscous) 15 ml PO Q8H PRN PRN Reason: Other Last Admin: 06/01/18 10:45 Dose: 15 ml Metoprolol Tartrate (Lopressor) 25 mg PO BRKDIN [facility] Last Admin: 06/05/18 16:50 Dose: 25 mg Montelukast Sodium (Singulair) 10 mg PO HS [facility] Last Admin: 06/05/18 21:00 Dose: 10 mg Morphine Sulfate (Morphine) 4 mg IVP Q3 PRN PRN Reason: Pain, severe (8-10) Last Admin: 06/06/18 03:26 Dose: 4 mg Ondansetron HCl (Zofran Odt) 4 mg PO TID PRN PRN Reason: Nausea/Vomiting Pantoprazole Sodium (Protonix Ec Tab) 40 mg PO 0600 [facility] Last Admin: 06/05/18 06:31 Dose: Not Given Polyethylene Glycol (Miralax) 17 gm PO ONCE PRN PRN Reason: Constipation Last Admin: 06/05/18 16:50 Dose: 17 gm Sertraline HCl (Zoloft) 25 mg PO QAM [facility] Last Admin: 06/05/18 09:11 Dose: 25 mg Sucralfate (Carafate Oral Susp) 1 gm PO ACBD [facility] Last Admin: 06/05/18 16:50 Dose: 1 gm Triamcinolone Acetonide (Kenalog 0.1% In Orabase) 0 appl MT BID PRN PRN Reason: Inflammation Last Admin: 06/04/18 17:12 Dose: 1 applic Valacyclovir HCl (Valtrex) 500 mg PO BID [facility] Last Admin: 06/05/18 18:47 Dose: 500 mg Vancomycin HCl (Vancocin 25 Mg/Ml (Oral Use)) 125 mg PO QID [facility]; Protocol Last Admin: 06/05/18 21:00 Dose: 125 mg - Labs Labs: 06/04/18 07:40 06/05/18 07:00 PT 13.9 SECONDS (9.4-12.5) H 06/03/18 07:20 INR 1.23 06/03/18 07:20 APTT 33.5 Seconds (26.9-38.3) 06/03/18 07:20
--- NOTE | 2018-06-06 08:38 | PN ---
DATE: 06/05/2018 SUBJECTIVE: See the previous consult notes and see the chart notes. The patient is doing somewhat better now. She thinks the bleeding is subsiding. She has noticed . The nephrostomy tube is in place, but think it needs to be flushed. ASSESSMENT AND PLAN: Everything else will remain unchanged. ____ Dr. Bruce Black and he can provide a new leg bag. We are going to do further clinical followup and we progress . Again make a note that the patient is and not unchanged by now, but we will discuss the options with her staff. Hubert Aburto MD
[2018-06-06] MEDS: Sucralfate 1 gm/10 ml Oral Susp UD PO SCH (08:45)
[2018-06-06 08:58] VITALS: BP 156/95; PULSE 94
[2018-06-06] MEDS: Vancomycin 25 MG/ML PO SCH ×2 (10:10→15:04)
[2018-06-06] MEDS: TRANEXAMIC ACID PO SCH (10:10)
[2018-06-06] MEDS: Azithromycin 500MG/NS 250ml 500 MG/250 ML BAG IVPB SCH (10:12)
--- NOTE | 2018-06-06 15:20 | CP.PCM.PN ---
Subjective - Date & Time of Evaluation Date of Evaluation: 06/06/18 Time of Evaluation: 12:00 - Subjective Subjective: Patient saw Urology yesterday but did not want anything to be done by Urology, refused urine sampling by nurses or Urology from the nephrostomy tube or urinary bladder, cough is improved. No fevers. Objective - Vital Signs/Intake and Output Vital Signs (last 24 hours): Temp Pulse Resp BP Pulse Ox 98.6 F 103 H 20 169/113 H 93 L 06/03/18 23:02 06/04/18 08:20 06/03/18 23:02 06/04/18 08:20 06/03/18 23:02 Intake and Output: 06/04/18 06/04/18 06:59 18:59 Intake Total 840 480 Balance 840 480 - Medications Medications: Current Medications Acetaminophen (Tylenol 325mg Tab) 650 mg PO Q4H PRN PRN Reason: Pain, Mild (1-3) Aspirin (Ecotrin) 81 mg PO DAILY [facility] Last Admin: 06/04/18 09:46 Dose: 81 mg Benzocaine/Menthol (Cepacol Sore Throat) 1 devante MT Q2H PRN PRN Reason: Sore Throat Guaifenesin/Dextromethorphan (Robitussin Dm) 10 ml PO Q4H PRN PRN Reason: Cough Last Admin: 06/01/18 09:15 Dose: 10 ml Home Med (Home Med) 2 unit PO BID [facility] Last Admin: 06/04/18 09:45 Dose: 2 unit Azithromycin (Zithromax 500mg In Ns) 500 mg in 250 mls @ 167 mls/hr IVPB DAILY [facility]; Protocol Stop: 06/06/18 14:31 Last Admin: 06/04/18 09:46 Dose: 167 mls/hr Lidocaine (Lidocaine 5%) 0 gm TOP BID [facility] Lidocaine HCl (Lidocaine 2% Viscous) 15 ml PO Q8H PRN PRN Reason: Other Last Admin: 06/01/18 10:45 Dose: 15 ml Metoprolol Tartrate (Lopressor) 25 mg PO BRKDIN [facility] Last Admin: 06/04/18 08:20 Dose: 25 mg Montelukast Sodium (Singulair) 10 mg PO HS [facility] Last Admin: 06/03/18 21:55 Dose: 10 mg Morphine Sulfate (Morphine) 4 mg IVP Q3 PRN PRN Reason: Pain, severe (8-10) Last Admin: 06/04/18 13:49 Dose: 4 mg Ondansetron HCl (Zofran Odt) 4 mg PO TID PRN PRN Reason: Nausea/Vomiting Pantoprazole Sodium (Protonix Ec Tab) 40 mg PO 0600 [facility] Last Admin: 06/04/18 07:34 Dose: Not Given Sertraline HCl (Zoloft) 25 mg PO QAM [facility] Last Admin: 06/04/18 09:46 Dose: 25 mg Sucralfate (Carafate Oral Susp) 1 gm PO ACBD [facility] Last Admin: 06/04/18 08:13 Dose: 1 gm Triamcinolone Acetonide (Kenalog 0.1% In Orabase) 0 appl MT BID PRN PRN Reason: Inflammation Last Admin: 06/01/18 15:56 Dose: 1 applic Valacyclovir HCl (Valtrex) 500 mg PO BID [facility] Last Admin: 06/04/18 09:45 Dose: 500 mg Vancomycin HCl (Vancocin 25 Mg/Ml (Oral Use)) 125 mg PO QID [facility]; Protocol Last Admin: 06/04/18 09:52 Dose: 125 mg - Labs Labs: 06/04/18 07:40 06/03/18 07:20 PT 13.9 SECONDS (9.4-12.5) H 06/03/18 07:20 INR 1.23 06/03/18 07:20 APTT 33.5 Seconds (26.9-38.3) 06/03/18 07:20 - Constitutional Appears: Chronically Ill - Head Exam Head Exam: NORMAL INSPECTION - Respiratory Exam Respiratory Exam: Decreased Breath Sounds - Cardiovascular Exam Cardiovascular Exam: +S1, +S2 - GI/Abdominal Exam GI & Abdominal Exam: Soft. absent: Tenderness Additional comments: bilateral nephrostomy tubes in place Assessment and Plan - Assessment and Plan (Free Text) Plan: Assessment R/O pertussis, S/P treatment with antibiotics consider C. diff. associated diarrhea R/O UTI in this patient with neprhostomy tube buccal, oral ulcer, R/O related to radiation, R/O HSV, R/O aphthous ulcers, slowly improving S/P complicated UTI with E. coli and E. faecalis, in this patient with indwelling right sided nephrostomy tube presenting with hematuria history of Urinary tract infection with Klebsiella oxytoca history of pseudomonas, Klebsiella and Enterococcus faecalis UTI enterococcus and pseudomonas UTI in the past cervical cancer S/P chemotherapy and radiation therapy with history or radiation cystitis history of transient ischemic attack GERD coronary artery disease sleep apnea history of psoriasis history of diverticulitis history of depression chronic renal failure S/P nephrostomy tube placement Plan completed course of Valtrex and Zithromax discussed with Dr. Ford - will need better urine sampling to see if there is bacteria in the urine (current urine cx is taken from the nephrostomy bag which is most likely contaminated and not a clean catch but patient is refusing urine cx sampling - will monitor continue PO Vancomycin day 3 of 10 days
[2018-06-06] MEDS: Lidocaine 5% Oint(35 gm) TOP SCH (16:53)
--- NOTE | 2018-06-07 08:37 | PN ---
DATE OF CONSULTATION: 06/05/2018 Please see the consult note from 06/03/2018. This is a followup note, see the chart notes. SUBJECTIVE: The patient is currently resting. She reports that she had blood in her urine, but she is not sure where it is still bleeding or not bleeding. Nephrostomy tube is draining well. She reports that they are bothering and irritating her by pulling . See the plans listed below. . REVIEW OF SYSTEMS: As above and is noncontributory. SOCIAL HISTORY: Unremarkable. . PHYSICAL EXAMINATION: GENERAL: A well-developed female. VITAL SIGNS: Within normal limits. . DIAGNOSES: 1. urine. 2. . 3. . . PLAN: As follows: 1. rule out ESBL . Hubert Aburto MD
--- NOTE | 2018-06-08 04:59 | DS ---
LOCATION: The patient is in Room 574, Bed 2. 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 status post radiation to the mediastinum for extensive mediastinal disease that was causing early superior vena cava syndrome along with compression on the bronchus, especially the right main stem and right lower lobe bronchus causing respiratory symptoms along with scant hemoptysis associated with odynophagia, received radiation, completed radiation then was started on systemic chemotherapy consisting of carbotaxol and Avastin, and then was admitted to the hospital after the second cycle of the chemotherapy with progressive odynophagia, mouth sores, and thought to have herpetic esophagitis, treated with IV acyclovir, sent home and then now readmitted for this admission with symptoms of rectal discomfort, rectal bleeding, and overall having sensation of lower abdomen and suprapubic pain. The patient was admitted, seen by GI, treated empirically as she has known diagnosis of rectal ectasia, internal hemorrhoids, and stercoral ulcers from constipation. The patient was put on a constipation regimen and has gradually improved. The patient also received blood transfusion. She describes them in the lower abdomen including the suprapubic pain have improved. We wanted to do a ultrasound but it was not possible. She was seen by the urologist to see if she was a candidate for cystoscopy, the patient refused it. Since the patient subjectively improved, we decided that we just manage her symptomatically and let her go home. In the hospital because the patient tested positive for pertussis in the recent past, she was also treated with Biaxin. Urine cultures which were read on 05/16/2018, as being showing E. Coli was thought to be self contamination after speaking with the ID consultation. The patient otherwise has been overall feeling better. She is eating better. She wanted me to advance her diet from a soft diet and a pureed diet to a heart-healthy diet, which she has been able to keep down. Mouth sores appears to be improved. Swallowing is better but not completely improved. PHYSICAL EXAMINATION: GENERAL: Reveals the patient to be awake, alert, and oriented. VITAL SIGNS: Stable as stated in the chart. HEENT: Head is normocephalic, atraumatic. Conjunctivae are pale. Sclerae are anicteric. Pupils are equally reactive to light and accommodation. Examination of the oropharynx reveals poor dentition. No oropharyngeal lesions are noted. NECK: Supple. There is no adenopathy. LUNGS: Clear to percussion and auscultation. CARDIOVASCULAR: Reveals S1, S2 to be normal. No gallop or murmur is heard. ABDOMEN: Soft, nontender. No rebound, rigidity or guarding is noted. Previously noted suprapubic discomfort has disappeared. EXTREMITIES: Reveal no cyanosis, clubbing, or edema. Previously noted left arm edema and left wrist edema related to mechanical compression and lymphatic compression related to the mediastinal tumor is markedly improved at this point in time. The patient is being discharged today and she will continue her current medications. White count which was on the lower side is gradually coming up. ANC is still about 2,000. 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 The patient has bilateral nephrostomy tubes from her prior issues with radiation cystitis that is being exchanged every 3 months is not due for any exchange now. Nephrostomy is draining clear urine. There is no blood in the nephrostomy tube. The patient is still on tranexamic acid to prevent any bleeding from the bladder which was one of her big issues a few years ago. The patient has coronary artery disease with at least 6 stents and she is under the care of Dr. Oliva who has been following her and has been managing her medically. From the medication point of view, the patient is going to be discharged on the following medicines; she is going to continue her oxycodone 5/325 mg one tablet every 6 hours p.r.n., Zoloft 25 mg in a. m.,tranexamic acid 250 mg tablets two tablets b.i.d., vitamin D 50,000 units once a day, esomeprazole 20 mg daily, famotidine 20 mg daily, Miralax 17 gram p.o. b.i.d., vitamin E 1000 units p.o. daily, Promethazine with Codeine one teaspoon every 6 hours p.r.n. for coughing which appears to be improved. She is also taking Magic mouthwash swish and swallow for her pain and discomfort in the mouth, which is also improving, Tessalon 100 mg t.i.d. p.r.n. for cough, cetirizine 5 mg p.o. daily for itching, Singulair 10 mg p.o. daily for her COPD. The patient does have history of smoking. Sucralfate 1 gram b.i.d., aspirin 81 mg daily, ascorbic acid 1000 mg daily, Zofran 4 mg t.i.d. p.r.n., Mycelex Dax 10 mg q.i.d. suck and swallow, Lexapro 25 mg p.o. b.i.d. She also has Kenalog Orabase for topical ulceration in the mouth. She has completed her valacyclovir at this point in time. The patient had evidence of C. diff positive antigen in the stool for which she was on vancomycin orally. She is going to complete the vancomycin as an outpatient 125 mg t.i.d. Followup instructions had been given to the patient to see me in the office in 3 to 4 days. Chemotherapy is currently is currently going to be on hold. Chemistries prior to discharge shows borderline hypokalemia, I am going to monitor it for now. I told her to take potassium rich diet. Electrolytes otherwise are fine. BUN is 13, creatinine 1.1. Hematology reveals hemoglobin to be 10.8, hematocrit 35.2, platelet count of 189,000, white count of 3.7. The last ANC that we had showed it to be greater than 2.5. Routine post-exam instructions have been given to the patient. The patient also followup with Cardiology, ID, and ourselves. Plan is to see if the patient is a candidate for resuming chemotherapy, which will probably be in 2 weeks because we will wait her to recover from the systemic side effects in the last 2 weeks on the prior treatment. Please make a note, this is a complex patient with multiple comorbid medical issues. Time spent in the patient discharge including calling in for the prescription, going over the medicines, talking to the pharmacist, and talking to the nurses took me more than 80 minutes. Gudelia Ford MD
== END 2018-06-06 15:45 | disposition home health service (06) | DRG 394 ==
LOC: ED 00:05 → ERH 01:41 → 5RSO 03:04
PROVIDERS: ADMIT Family Medicine; ATTEND Family Medicine
DX: K62.6 Ulcer of anus and rectum (principal); K62.5 Hemorrhage of anus and rectum; C78.1 Secondary malignant neoplasm of mediastinum; C78.00 Secondary malignant neoplasm of unspecified lung; N30.41 Irradiation cystitis with hematuria; A37.90 Whooping cough, unspecified species without pneumonia; C53.9 Malignant neoplasm of cervix uteri, unspecified; K62.7 Radiation proctitis; I12.9 Hypertensive chronic kidney disease with stage 1 through stage 4 chronic kidney disease, or unspecified chronic kidney disease; N18.3 Chronic kidney disease, stage 3 (moderate); I25.10 Atherosclerotic heart disease of native coronary artery without angina pectoris; K22.70 Barrett's esophagus without dysplasia; R13.12 Dysphagia, oropharyngeal phase; B95.2 Enterococcus as the cause of diseases classified elsewhere; B96.20 Unspecified Escherichia coli [E. coli] as the cause of diseases classified elsewhere; K12.1 Other forms of stomatitis; K12.0 Recurrent oral aphthae; B00.9 Herpesviral infection, unspecified; R41.0 Disorientation, unspecified; M54.5 Low back pain; Y84.2 Radiological procedure and radiotherapy as the cause of abnormal reaction of the patient, or of later complication, without mention of misadventure at the time of the procedure; L40.9 Psoriasis, unspecified; K21.9 Gastro-esophageal reflux disease without esophagitis; F32.9 Major depressive disorder, single episode, unspecified; R47.02 Dysphasia; D63.8 Anemia in other chronic diseases classified elsewhere; D70.1 Agranulocytosis secondary to cancer chemotherapy; G89.3 Neoplasm related pain (acute) (chronic); T45.1X5A Adverse effect of antineoplastic and immunosuppressive drugs, initial encounter; G47.30 Sleep apnea, unspecified; Z93.6 Other artificial openings of urinary tract status; Z87.891 Personal history of nicotine dependence; Z86.73 Personal history of transient ischemic attack (TIA), and cerebral infarction without residual deficits

== ENCOUNTER 2018-06-12 14:25 | Day surgery (SDC) | payer MEDICARE, OTHER ==
[2018-06-11 16:58] VITALS: BMI 21.4
[2018-06-12 15:10] LABS: BASO # 0.02 K/mm3 (0.0-2.0); BASO % 0.3 % (0.0-3.0); EOS % 0.3 % (1.5-5.0); HEMOGLOBIN 9.5 g/dL (12.0-16.0); LYMPH # 0.7 (1.2-3.4); LYMPH % 10.9 % (22.0-35.0); MEAN CELL VOLUME 91.9 fl (80.0-105.0); MEAN CORPUSCULAR HEMOGLOBIN 28.6 pg (25.0-35.0); MEAN CORPUSCULAR HGB CONC 31.1 g/dl (31.0-37.0); MEAN PLATELET VOLUME 9.5 fl (7.0-11.0); MONO # 0.5 (0.1-0.6); MONO % 7.9 % (1.0-6.0); RBC 3.32 10^6/uL (3.5-6.1); RED CELL DISTRIBUTION WIDTH 16.6 % (11.5-14.5); WHITE BLOOD COUNT 6.5 10^3/uL (4.5-11.0)
[2018-06-12 15:22] LABS: CALCIUM 9.2 mg/dL (8.4-10.5)
[2018-06-12 15:25] VITALS: O2SAT 99
[2018-06-12 15:44] LABS: INR 1.14; PARTIAL THROMBOPLASTIN TIME 36.5 Seconds (26.9-38.3); PROTHROMBIN TIME 12.6 SECONDS (9.4-12.5)
[2018-06-12] MEDS ORDERED: Lidocaine PF 2% (5 ml) Inj (For Cardiac Arrhy) ONE (16:03)
[2018-06-12] MEDS ORDERED: Iodixanol 320 MG/ML 200 ML BOTTLE IV ONE (16:03)
[2018-06-12] MEDS ORDERED: Midazolam 2 MG/2 ML VIAL ONE ×2 (16:39→16:49)
[2018-06-12] MEDS ORDERED: Oxycodone/Acetaminophen 5/325 mg Tab PO PRN (17:10)
[2018-06-12] MEDS ORDERED: Sodium Chloride 0.45% 1,000 ML IV SCH (17:15)
--- NOTE | 2018-06-12 17:24 | VASCULAR ---
PROCEDURE: 1. Bilateral nephrostomy tube change HISTORY: Recurrent cervical carcinoma. Hemorrhagic cystitis with chronic bilateral nephrostomy tubes. Hydronephrosis. Needs bilateral nephrostomy tube change PHYSICIAN(S): Bruce Black MD. TECHNIQUE: The relative risks and indications of the procedure were explained to the patient and consent obtained. The patient was placed prone on the arteriogram table and the back prepped and draped usual sterile fashion. Conscious sedation monitoring were provided throughout the procedure by a nurse. The nephrostomy tubes were prepped and draped bilaterally in the usual sterile fashion. 1 percent xylocaine was used anesthetize skin soft tissues. Contrast was injected in the right nephrostomy tube. There is moderate hydronephrosis. There is incomplete filling of the distal right ureter. With some difficulty Glidewire was advanced through the partially occluded right nephrostomy tube and coiled within the pelvis. The old tube was removed. A new 12 [place]ese right nephrostomy tube was coiled in the right renal pelvis. The catheter was flushed and secured. The left nephrostomy tube was injected with contrast. Once again there is moderate left hydronephrosis. The left ureter fills readily with contrast into the bladder. Once again with some difficulty a Glidewire was advanced through the tube. The old tube was removed. A new 12 Sudanese nephrostomy tube was placed in the left renal pelvis. The catheter was flushed and secured. The patient tolerated the procedure FINDINGS: There is moderate bilateral hydronephrosis. The left ureter fills readily and drains into the bladder. The distal right ureter fills with some difficulty and eventually drains into the bladder IMPRESSION: 1. Successful bilateral percutaneous nephrostomy tube change. New 12 Sudanese nephrostomy tubes were placed bilaterally 2. Moderate bilateral hydronephrosis. The left ureter is easily opacified. The right ureter fills on delayed images.
[2018-06-12 17:47] VITALS: RESP 18
[2018-06-12 20:14] VITALS: BP 144/90; PULSE 88; TEMP 97.3
== END 2018-06-12 18:50 | disposition home or self-care (01) ==
LOC: SDS 14:25
PROVIDERS: ATTEND Radiology Vascular & Interventional Radiology
DX: N13.6 Pyonephrosis (principal); C53.9 Malignant neoplasm of cervix uteri, unspecified
CPT/HCPCS: 36415; 50435; 80048; 85025; 85610; 85730; 99152; A4358; C1729; C1769; J1644; J2250; J2405; J3010; J7030; Q9966

== ENCOUNTER 2018-06-17 12:18 | Inpatient (IN) | payer MEDICARE, OTHER ==
[2018-06-17 12:18] VITALS: BMI 20.5
[2018-06-17] MEDS ORDERED: Sodium Chloride 0.9% 250 ML IV STA (14:18)
[2018-06-17 14:55] LABS: BASO # 0.01 K/mm3 (0.0-2.0); BASO % 0.2 % (0.0-3.0); EOS % 0.2 % (1.5-5.0); HEMOGLOBIN 9.3 g/dL (12.0-16.0); LYMPH # 0.6 (1.2-3.4); LYMPH % 11.8 % (22.0-35.0); MEAN CELL VOLUME 93.5 fl (80.0-105.0); MEAN CORPUSCULAR HEMOGLOBIN 28.6 pg (25.0-35.0); MEAN CORPUSCULAR HGB CONC 30.6 g/dl (31.0-37.0); MEAN PLATELET VOLUME 9.1 fl (7.0-11.0); MONO # 0.4 (0.1-0.6); MONO % 6.5 % (1.0-6.0); RBC 3.25 10^6/uL (3.5-6.1); RED CELL DISTRIBUTION WIDTH 17.4 % (11.5-14.5); WHITE BLOOD COUNT 5.4 10^3/uL (4.5-11.0)
[2018-06-17 15:06] LABS: ALB/GLOB RATIO 0.9 (1.1-1.8); ALBUMIN 3.1 g/dL (3.0-4.8); CALCIUM 8.7 mg/dL (8.4-10.5); INR 1.14; PARTIAL THROMBOPLASTIN TIME 37.2 Seconds (26.9-38.3); PROTHROMBIN TIME 12.6 SECONDS (9.4-12.5)
[2018-06-17] MEDS ORDERED: Morphine 2 mg/ml ISec IVP STA (15:12)
--- NOTE | 2018-06-17 15:18 | ED PDOC ---
Arrival/HPI - General Chief Complaint: Female Genitourinary Time Seen by Provider: 06/17/18 13:38 Historian: Patient - History of Present Illness Narrative History of Present Illness (Text): 06/17/18 14:18 67 year old female, whose past medical history includes stage 3 cervical cancer s/p chemoradiation, CAD s/p stenting, CKD, h/o nephrostomy tubes, radiation cystitis, psoriasis, depression, and stercoral rectal ulcer, presents to the emergency department complaining of vaginal and rectal pain associated with possible bleeding per rectum since today. Patient reports associated irritation to the area but denies any other somatic complaints. Patient informs history of GI bleed in the past, prompting her to present to the ED for evaluation. Patient denies any fevers, chills, headache, dizziness, chest pain, shortness of breath, dyspnea on exertion, cough, abdominal pain, nausea, vomiting, diarrhea, back pain, neck pain, or any other complaints. 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 - Endocrine/Metabolic Hx Endocrine Disorders: No - Hematological/Oncological Hx Blood Transfusions: Yes (01/2018) Hx Blood Transfusion Reaction: No - Integumentary Hx Psoriasis: Yes - Musculoskeletal/Rheumatological Hx Musculoskeletal Disorders: Yes (r ankle/ R WRIST FX R/T FALL 06/2015) - Gastrointestinal Hx Gastrointestinal Disorders: Yes (GI bleed) Hx Diverticulitis: Yes Hx Gastroesophageal Reflux: Yes - Genitourinary/Gynecological Hx Genitourinary Disorders: Yes Hx Hematuria: Yes Hx Urinary Tract Infection: Yes Other/Comment: nephrostomy surgery - Psychiatric Hx Emotional Abuse: No Hx Physical Abuse: No Hx Substance Use: No - Surgical History Hx Cardiac Catheterization: Yes Hx Coronary Stent: Yes Hx Hysterectomy: Yes Other/Comment: nephrostomy tubes,CARDIAC STENTS ,HYSTERECTOMY,RIGHT ANKLE FX, - Anesthesia Hx Anesthesia: Yes Hx Anesthesia Reactions: Yes (NAUSEA) Hx Malignant Hyperthermia: No - Suicidal Assessment Feels Threatened In Home Enviroment: No Family/Social History - Physician Review Nursing Documentation Reviewed: Yes Family/Social History: Unknown Family HX Smoking Status: Former Smoker Hx Alcohol Use: No Hx Substance Use: No Hx Substance Use Treatment: No Allergies/Home Meds Allergies/Adverse Reactions: Allergies No Known Allergies Allergy (Verified 05/27/18 21:14) Home Medications: Home Meds Medication Instructions Recorded Confirmed Benzocaine/Menthol [Cepacol Sore 1 devante PO Q2H PRN 06/11/18 06/17/18 Throat] Tranexamic Acid [Lysteda] 2 tab PO BID 06/12/18 06/17/18 Esomeprazole Magnesium [Nexium] 1 cap PO DAILY 06/17/18 06/17/18 Oxycodone-Acetaminophen 5-325 2 tab PO Q6H 06/17/18 06/17/18 Terconazole 80 mg VG DAILY 06/17/18 06/17/18 Review of Systems - Physician Review All systems were reviewed & negative as marked: Yes - Review of Systems Constitutional: absent: Fatigue, Fevers Respiratory: absent: SOB, Cough Cardiovascular: absent: Chest Pain Gastrointestinal: Other (Rectal bleeding). absent: Abdominal Pain, Diarrhea, Nausea, Vomiting Genitourinary Female: Vaginal Bleeding, Vaginal Discharge, Other (vaginal pain). absent: Dysuria, Urine Output Changes Musculoskeletal: absent: Back Pain, Neck Pain Skin: absent: Rash Neurological: absent: Headache, Dizziness Psychiatric: absent: Anxiety, Suicidal Ideation Physical Exam Vital Signs Reviewed: Yes Vital Signs Temp Pulse Resp BP Pulse Ox 06/17/18 12:18 97.7 F 86 18 111/57 L 98 Temperature: Afebrile Blood Pressure: Normal Pulse: Regular Respiratory Rate: Normal Appearance: Positive for: Well-Appearing, Non-Toxic, Comfortable Pain Distress: None Mental Status: Positive for: Alert and Oriented X 3 - Systems Exam Head: Present: Atraumatic, Normocephalic Pupils: Present: PERRL Extroacular Muscles: Present: EOMI Conjunctiva: Present: Normal Mouth: Present: Moist Mucous Membranes Respiratory/Chest: Present: Clear to Auscultation, Good Air Exchange. No: Respiratory Distress, Accessory Muscle Use Cardiovascular: Present: Regular Rate and Rhythm, Normal S1, S2. No: Murmurs Abdomen: Present: Normal Bowel Sounds. No: Tenderness, Distention, Peritoneal Signs, Rebound, Guarding Rectal: Present: Other (Heme positive brown stool) Genitourinary/Pelvic Exam: Present: Vaginal Bleeding (bloody discharge noted around vagina and anus), Other (Tech Julieta present as Taker Out. External tenderness but no erythema noted. Patient refused speculum examination.) Back: Present: Other (nephrostomy tubes bilaterally) Upper Extremity: Present: Normal Inspection. No: Cyanosis, Edema Lower Extremity: Present: Normal Inspection. No: Edema Neurological: Present: GCS=15, Speech Normal Skin: Present: Warm, Dry, Normal Color. No: Rashes Psychiatric: Present: Alert, Oriented x 3 Medical Decision Making ED Course and Treatment: 06/17/18 14:18 Impression: 67 year old female presents to the ED for evaluation of rectal and vaginal discomfort with bleeding. Plan: -- Labs -- CT of Abdomen/Pelvis -- Morphine -- IV fluids -- Reassess and disposition Prior Visits: Notes and results from previous visits were reviewed. Progress Notes: pt refused speculum examination; + blood all along vagina; ? stool contents. + heme positive rectal examination. 06/17/18 17:55 FINDINGS: LOWER THORAX: Unremarkable. LIVER: Liver exhibits normal size. No obvious hepatic masses or collections. Small hepatic calcification inferior aspect right lobe liver unchanged. Liver is normal in GALLBLADDER AND BILE DUCTS: Gallbladder moderately distended. No evidence of intraluminal gallbladder calculi. Dilatation of the common bile duct. PANCREAS: Pancreas appears atrophic and fatty replaced. No pancreatic mass collection or calcification. SPLEEN: Unremarkable. No splenomegaly. ADRENALS: There are no adrenal lesions seen. KIDNEYS AND URETERS: In situ bilateral nephrostomy tubes. Right kidney remains atrophic with cortical scarring. BLADDER: Air is present within collapsed urinary bladder. This is of uncertain etiology though could be secondary to the presence of nephrostomy tubes however the possibility a colovesicular fistula not excluded with oral contrast material abutting and possibly extending into the posterior margin of the presumed partially air-filled the bladder lumen. REPRODUCTIVE: Uterus is not well delineated on this exam due to surrounding scarring as well as apparent wall thickening of the rectum APPENDIX: Normal appendix. BOWEL: Evaluation of the bowel is limited to lack of oral contrast however high density material is present within the colon possibly related to prior CT scan which was performed with oral contrast material. There large amount of stool in the colon consistent with fecal retention/constipation as well. Appears to be partial opacification the sigmoid colon which abuts the dorsal margin of the partially air filled urinary bladder. The possibility of a colovesicular fistula given the proximity of the oral contrast material to air in the urinary bladder must be considered.. Apparent rectal wall thickening. Visualized loops of small bowel exhibit normal contour and caliber. No evidence of mechanical small bowel obstruction. Stomach incompletely distended with thick-walled appearance. PERITONEUM: Unremarkable. No fluid collection. No free air. Small fat containing umbilical hernia again noted. LYMPH NODES: Unremarkable. No enlarged lymph nodes. VASCULATURE: Unremarkable. No aortic aneurysm. No aortic atherosclerotic calcification or mural plaque present. BONES: Multilevel degenerative spondylosis of the lower thoracic and lumbar spine. Slight anterior subluxation L4 over L5. OTHER FINDINGS: None. IMPRESSION: Possible colovesicular fistula involving a segment of distal sigmoid colon abutting the posterior margin of partially filled urinary bladder. Clinical correlation recommended.. There is rectal wall thickening. In situ bilateral nephrostomy tubes. cbc; hcg; 9.3 unchanged from blood work this morning. cmp; type and screen case discussed with dr. Liliana Bahena. accepts admission. consult dr. overton and Dr. Greene case discussed with assistant vice president. impression: colovesicular fistula, rectal bleeding, anemia admit remote tele. - Lab Interpretations Lab Results: PT 12.6 SECONDS (9.4-12.5) H 06/17/18 14:43 INR 1.14 06/17/18 14:43 APTT 37.2 Seconds (26.9-38.3) 06/17/18 14:43 Total Bilirubin 0.3 mg/dL (0.2-1.3) 06/17/18 14:43 AST 23 U/L (14-36) 06/17/18 14:43 ALT 17 U/L (7-56) 06/17/18 14:43 Alkaline Phosphatase 145 U/L (38-126) H 06/17/18 14:43 Total Protein 6.8 g/dL (5.8-8.3) 06/17/18 14:43 Albumin 3.1 g/dL (3.0-4.8) 06/17/18 14:43 Globulin 3.7 gm/dL 06/17/18 14:43 Albumin/Globulin Ratio 0.9 (1.1-1.8) L 06/17/18 14:43 - RAD Interpretation Radiology Orders: 06/17/18 14:18 ABD & PELVIS IV CONTRAST ONLY [CT] Stat - Medication Orders Current Medication Orders: Sodium Chloride (Sodium Chloride 0.9%) 250 mls @ 250 mls/hr IV .Q1H STA Stop: 06/17/18 15:17 Last Admin: 06/17/18 15:09 Dose: 250 mls/hr eMAR Start Stop Document 06/17/18 15:09 OCS (Rec: 06/17/18 15:09 OCS [id number]) Intravenous Solution Start Date 06/17/18 Start Time 15:09 End Date 06/17/18 End time 16:09 Total Infusion Time 60 Morphine Sulfate (Morphine) 1 mg IVP STAT STA Stop: 06/17/18 15:13 - PA / MANDARIN TEACHER / Resident Statement MD/DO has reviewed & agrees with the documentation as recorded. - Scribe Statement The provider has reviewed the documentation as recorded by the Scribe Massiel Styles. All medical record entries made by the Scribe were at my direction and personally dictated by me. I have reviewed the chart and agree that the record accurately reflects my personal performance of the history, physical exam, medical decision making, and the department course for this patient. I have also personally directed, reviewed, and agree with the discharge instructions and disposition. Disposition/Present on Arrival - Present on Arrival Any Indicators Present on Arrival: Yes History of DVT/PE: No History of Uncontrolled Diabetes: No Urinary Catheter: Yes (b/l nephrostomy) History of Decub. Ulcer: No History Surgical Site Infection Following: None - Disposition Have Diagnosis and Disposition been Completed?: Yes Diagnosis: Anemia, Hematochezia, Fistula Disposition: HOSPITALIZED Disposition Time: 16:21 Patient Plan: Admission Condition: FAIR
[2018-06-17] MEDS ORDERED: Morphine 4 mg/ml ISec IVP STA (16:46)
--- NOTE | 2018-06-17 17:33 | CT ---
Date of service: 06/17/2018 PROCEDURE: CT abdomen pelvis HISTORY: Vaginal and rectal pain/ GI bleeding COMPARISON: Comparison made with prior CT scan of the abdomen and pelvis 06/01/2018. TECHNIQUE: Contiguous axial images of the abdomen and pelvis performed standard fashion without oral intravenous contrast material. Additional 2D sagittal and coronal sagittal reformats generated. Radiation dose: Total exam DLP = 380.29 mGy-cm. This CT exam was performed using one or more of the following dose reduction techniques: Automated exposure control, adjustment of the mA and/or kV according to patient size, and/or use of iterative reconstruction technique. FINDINGS: LOWER THORAX: Unremarkable. LIVER: Liver exhibits normal size. No obvious hepatic masses or collections. Small hepatic calcification inferior aspect right lobe liver unchanged. Liver is normal in GALLBLADDER AND BILE DUCTS: Gallbladder moderately distended. No evidence of intraluminal gallbladder calculi. Dilatation of the common bile duct. PANCREAS: Pancreas appears atrophic and fatty replaced. No pancreatic mass collection or calcification. SPLEEN: Unremarkable. No splenomegaly. ADRENALS: There are no adrenal lesions seen. KIDNEYS AND URETERS: In situ bilateral nephrostomy tubes. Right kidney remains atrophic with cortical scarring. BLADDER: Air is present within collapsed urinary bladder. This is of uncertain etiology though could be secondary to the presence of nephrostomy tubes however the possibility a colovesicular fistula not excluded with oral contrast material abutting and possibly extending into the posterior margin of the presumed partially air-filled the bladder lumen. REPRODUCTIVE: Uterus is not well delineated on this exam due to surrounding scarring as well as apparent wall thickening of the rectum APPENDIX: Normal appendix. BOWEL: Evaluation of the bowel is limited to lack of oral contrast however high density material is present within the colon possibly related to prior CT scan which was performed with oral contrast material. There large amount of stool in the colon consistent with fecal retention/constipation as well. Appears to be partial opacification the sigmoid colon which abuts the dorsal margin of the partially air filled urinary bladder. The possibility of a colovesicular fistula given the proximity of the oral contrast material to air in the urinary bladder must be considered.. Apparent rectal wall thickening. Visualized loops of small bowel exhibit normal contour and caliber. No evidence of mechanical small bowel obstruction. Stomach incompletely distended with thick-walled appearance. PERITONEUM: Unremarkable. No fluid collection. No free air. Small fat containing umbilical hernia again noted. LYMPH NODES: Unremarkable. No enlarged lymph nodes. VASCULATURE: Unremarkable. No aortic aneurysm. No aortic atherosclerotic calcification or mural plaque present. BONES: Multilevel degenerative spondylosis of the lower thoracic and lumbar spine. Slight anterior subluxation L4 over L5. OTHER FINDINGS: None. IMPRESSION: Possible colovesicular fistula involving a segment of distal sigmoid colon abutting the posterior margin of partially filled urinary bladder. Clinical correlation recommended.. There is rectal wall thickening. In situ bilateral nephrostomy tubes. See above discussion for additional details. Note these findings were discussed with emergency room PA as only a approximately 5;15 p.m. with written down and read back verification.
[2018-06-17 18:19] LABS: URINE BILIRUBIN NEGATIVE (NEGATIVE); URINE BLOOD SMALL (NEGATIVE); URINE GLUCOSE (UA) NEGATIVE (NEGATIVE); URINE LEUKOCYTE ESTERASE MODERATE Leu/uL (NEGATIVE); URINE PROTEIN 30 mg/dL (<30 mg/dL); URINE UROBILINOGEN 0.2 E.U./dL (<1 E.U./dL)
[2018-06-17 18:28] LABS: URINE APPEARANCE CLOUDY (CLEAR); URINE COLOR YELLOW (YELLOW)
[2018-06-17 18:32] LABS: URINE BACTERIA MANY /hpf; URINE WBC TNTC /hpf (0-6)
--- NOTE | 2018-06-17 19:17 | CP.PCM.CON ---
History of Present Illness - History of Present Illness History of Present Illness: General Surgery Consult Note for Dr. Almendarez, covering for Dr. Greene 67F, PMH of metastatic cervical cancer (Stage IV) s/p chemoradiation, radiation cystitis, nephrostomy tubes, stercoral ulceration of the rectum, CAD s/p PCI, CKD, recurrent UTIs, chronic constipation, Watkins's esophagus, psoriasis, and depression, presents to the [facility] emergency department with bright red blood per rectum since sunday. Patient has had similar episodes in the past, however on this occasion she experienced significant vaginal and rectal/anal discomfort which brought her to the hospital. She took Oxycodone for pain which provided no relief. Patient states she had difficulty walking. No other aggravating or alleviating factors. Admits to nausea and spit up but no emesis. Patient has been experiencing diarrhea for the past few days and has stopped taking Miralax prescribed by GI doctor. She has been incontinent of stool for a few weeks and wears diapers now. Denies fever, chills, shortness of breath, cough, chest pain, palpitations, dizziness, headaches, black/tarry stools, or urinary symptoms. 12/24/17: Colonoscopy showed significant stool and ulcer PMH: See above PSH: Cardiac stenting x4, Bilateral nephrostomy tubes, Hysterectomy, ankle ORIF FH: Unknown SH: Former heavy smoker, denies alcohol or illicit drug usage. . Patient would like medical decisions to be made by sister if patient unable. ALL: NKDA Meds: See MAR Review of Systems - Constitutional Constitutional: Weight Loss. absent: Chills, Fever - EENT Eyes: absent: Blurred Vision, Change in Vision Nose/Mouth/Throat: absent: Nasal Congestion, Nasal Discharge - Cardiovascular Cardiovascular: absent: Chest Pain, Dyspnea - Respiratory Respiratory: Cough. absent: Dyspnea, Hemoptysis - Gastrointestinal Gastrointestinal: Change in Stool Character, Diarrhea, Hematochezia, Nausea. absent: Abdominal Pain, Coffee Ground Emesis, Vomiting - Genitourinary Additional comments: Nephrostomy tubes - Musculoskeletal Musculoskeletal: absent: Back Pain, Neck Pain - Integumentary Integumentary: absent: Bleeding Lesions, Changing Lesions - Neurological Neurological: absent: Confusion, Dizziness - Psychiatric Psychiatric: Irritability. 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 - ENDOCRINE/METABOLIC Hx Endocrine Disorders: No - HEMATOLOGICAL/ONCOLOGICAL Hx Blood Transfusions: Yes (01/2018) Hx Blood Transfusion Reaction: No - INTEGUMENTARY Hx Psoriasis: Yes - MUSCULOSKELETAL/RHEUMATOLOGICAL Hx Musculoskeletal Disorders: Yes (r ankle/ R WRIST FX R/T FALL 06/2015) - GASTROINTESTINAL Hx Gastrointestinal Disorders: Yes (GI bleed) Hx Diverticulitis: Yes Hx Gastroesophageal Reflux: Yes - GENITOURINARY/GYNECOLOGICAL Hx Genitourinary Disorders: Yes Hx Hematuria: Yes Hx Urinary Tract Infection: Yes Other/Comment: nephrostomy surgery - PSYCHIATRIC Hx Emotional Abuse: No Hx Physical Abuse: No Hx Substance Use: No - SURGICAL HISTORY Hx Cardiac Catheterization: Yes Hx Coronary Stent: Yes Hx Hysterectomy: Yes Other/Comment: nephrostomy tubes,CARDIAC STENTS ,HYSTERECTOMY,RIGHT ANKLE FX, - ANESTHESIA Hx Anesthesia: Yes Hx Anesthesia Reactions: Yes (NAUSEA) Hx Malignant Hyperthermia: No Meds Allergies/Adverse Reactions: Allergies Allergy/AdvReac Type Severity Reaction Status Date / Time No Known Allergies Allergy Verified 05/27/18 21:14 Physical Exam - Constitutional Appears: Non-toxic, No Acute Distress - Head Exam Head Exam: ATRAUMATIC, NORMAL INSPECTION, NORMOCEPHALIC - Eye Exam Eye Exam: EOMI Pupil Exam: PERRL - ENT Exam ENT Exam: Mucous Membranes Dry - Respiratory Exam Respiratory Exam: NORMAL BREATHING PATTERN. absent: Respiratory Distress - Cardiovascular Exam Cardiovascular Exam: REGULAR RHYTHM. absent: Tachycardia - GI/Abdominal Exam GI & Abdominal Exam: Normal Bowel Sounds, Soft. absent: Tenderness - Rectal Exam Rectal Exam: Hemorrhoids. absent: Black Stool, Bloody Stool Additional comments: Visual inspection only - patient did not allow SLY No visible blood, black stool, or clots - Exam Exam: absent: Uretheral Discharge External exam: absent: Erythema, Swelling Additional comments: Visual inspection only - patient did not allow for speculum or bimanual exam No gross blood visualized, no discharge, no foul odor - Extremities Exam Extremities exam: Positive for: pedal pulses present - Back Exam Additional comments: Bilateral nephrostomy tubes - Neurological Exam Neurological exam: Alert, Oriented x3 - Psychiatric Exam Psychiatric exam: Anxious, Normal Mood - Skin Skin Exam: Dry, Intact, Normal Color, Warm Results - Vital Signs Recent Vital Signs: Last Vital Signs Temp 97.7 F 06/17/18 12:18 Pulse 88 06/17/18 16:35 Resp 18 06/17/18 16:35 BP 158/90 H 06/17/18 16:35 Pulse Ox 98 06/17/18 16:35 - Labs Result Diagrams: 06/17/18 14:43 06/17/18 14:43 Labs: Laboratory Results - last 24 hr 06/17/18 06/17/18 06/17/18 14:43 14:43 14:43 WBC 5.4 RBC 3.25 L Hgb 9.3 L Hct 30.4 L MCV 93.5 MCH 28.6 MCHC 30.6 L RDW 17.4 H Plt Count 302 MPV 9.1 Neut % (Auto) 81.3 H Lymph % (Auto) 11.8 L [place] % (Auto) 6.5 H Eos % (Auto) 0.2 L Baso % (Auto) 0.2 Lymph # (Auto) 0.6 L [place] # (Auto) 0.4 Eos # (Auto) 0.0 Baso # (Auto) 0.01 Absolute Neuts (auto) 4.35 PT 12.6 H INR 1.14 APTT 37.2 Sodium 136 Potassium 3.7 Chloride 103 Carbon Dioxide 26 Anion Gap 11 BUN 19 Creatinine 1.4 H Est GFR ( Amer) 45 Est GFR (Non-Af Amer) 38 Random Glucose 92 Calcium 8.7 Total Bilirubin 0.3 AST 23 ALT 17 Alkaline Phosphatase 145 H Total Protein 6.8 Albumin 3.1 Globulin 3.7 Albumin/Globulin Ratio 0.9 L Urine Color Urine Appearance Urine pH Ur Specific [place] Urine Protein Urine Glucose (UA) Urine Ketones Urine Blood Urine Nitrate Urine Bilirubin Urine Urobilinogen Ur Leukocyte Esterase Urine RBC Urine WBC Ur Epithelial Cells Urine Bacteria Blood Type Antibody Screen BBK History Checked 06/17/18 06/17/18 14:43 14:58 WBC RBC Hgb Hct MCV MCH MCHC RDW Plt Count MPV Neut % (Auto) Lymph % (Auto) [place] % (Auto) Eos % (Auto) Baso % (Auto) Lymph # (Auto) [place] # (Auto) Eos # (Auto) Baso # (Auto) Absolute Neuts (auto) PT INR APTT Sodium Potassium Chloride Carbon Dioxide Anion Gap BUN Creatinine Est GFR ( Amer) Est GFR (Non-Af Amer) Random Glucose Calcium Total Bilirubin AST ALT Alkaline Phosphatase Total Protein Albumin Globulin Albumin/Globulin Ratio Urine Color Yellow Urine Appearance Cloudy Urine pH 6.0 Ur Specific [place] 1.025 Urine Protein 30 H Urine Glucose (UA) Negative Urine Ketones Negative Urine Blood Small H Urine Nitrate Positive H Urine Bilirubin Negative Urine Urobilinogen 0.2 Ur Leukocyte Esterase Moderate H Urine RBC 2 - 5 H Urine WBC Tntc H Ur Epithelial Cells 4 - 5 Urine Bacteria Many Blood Type O POSITIVE Antibody Screen Negative BBK History Checked Patient has bt Assessment & Plan - Assessment and Plan (Free Text) Assessment: 67F, w/ bright red blood per rectum likely 2/2 stercoral ulcer consulted for CT evidence of suspected colovesicular fistula Plan: - Determine goals of care at this time - Consider palliative consult - previous discussion 06/03/18 patient states Full Code unless condition irreversible, then patient would like to be DNR/DNI - Recommend contrast enema vs methylene blue study of the rectum to assess for possible colovesicular fistula - F/u GI recommendations - Adequate pain control - Continue to monitor for bleeding - Monitor H/H - Transfuse as needed (Hgb < 7) - Antibiotics for UTI as seen on UA - Clear liquid diet, advance as tolerated per GI discretion - Consider Urology consult - Medical management per primary team - Patient currently refusing surgical interventions at this present time - Will continue to follow - Further recommendations per Dr. Erickson Ariza [id number]
[2018-06-17] MEDS ORDERED: cefTRIAXone 1 gm 1 GM/100 ML BAG IVPB STA (21:15)
[2018-06-18] MEDS: Morphine 2 mg/ml ISec IVP PRN ×3 (02:04→08:37)
[2018-06-18] MEDS ORDERED: Morphine 2 mg/ml ISec IVP ONE ×2 (02:35→06:25)
--- NOTE | 2018-06-18 05:07 | CP.PCM.PN ---
Subjective - Date & Time of Evaluation Date of Evaluation: 06/18/18 Time of Evaluation: 05:04 - Subjective Subjective: To be detected. Rectal cancer pain. Rx, MSo4 2mg Patient was seen at bedside because I was asked to co-sign order for morphine sulfate 2 mg IV x 1. Patient is asleep now. Pain was allegedly at the rectal cancer site. Medical record was reviewed. This 67 year old white woman was admitted with vaginal and rectal pain. Has PMH of stage III cervical cancer, CKD, S/P nephrostomy tube placement, depression, rectal ulcer. Objective - Vital Signs/Intake and Output Vital Signs (last 24 hours): Temp Pulse Resp BP Pulse Ox 98.5 F 96 H 18 146/80 96 06/17/18 21:45 06/18/18 02:00 06/17/18 21:45 06/17/18 21:45 06/17/18 21:45 Intake and Output: 06/17/18 06/18/18 18:59 06:59 Intake Total 300 Output Total 500 Balance -200 - Medications Medications: Current Medications Aspirin (Ecotrin) 81 mg PO DAILY [facility] Metoprolol Tartrate (Lopressor) 25 mg PO BRKDIN [facility] Montelukast Sodium (Singulair) 10 mg PO HS [facility] Last Admin: 06/17/18 21:29 Dose: 10 mg Morphine Sulfate (Morphine) 2 mg IVP Q3H PRN PRN Reason: Pain, severe (8-10) Last Admin: 06/18/18 02:04 Dose: 2 mg Non-Formulary Medication (Terconazole [Terconazole]) 80 mg VG DAILY [facility] Non-Formulary Medication (Tranexamic Acid [Lysteda]) 2 tab PO BID [facility] Pantoprazole Sodium (Protonix Ec Tab) 40 mg PO ACB [facility] Sertraline HCl (Zoloft) 25 mg PO QAM [facility] Sucralfate (Carafate Oral Susp) 1 gm PO ACBD [facility] - Labs Labs: 06/17/18 14:43 06/17/18 14:43 PT 12.6 SECONDS (9.4-12.5) H 06/17/18 14:43 INR 1.14 06/17/18 14:43 APTT 37.2 Seconds (26.9-38.3) 06/17/18 14:43 - Constitutional Appears: Well, No Acute Distress - Head Exam Head Exam: ATRAUMATIC, NORMAL INSPECTION, NORMOCEPHALIC - Eye Exam Eye Exam: Normal appearance - ENT Exam ENT Exam: Normal External Ear Exam - Neck Exam Neck Exam: Normal Inspection - Respiratory Exam Respiratory Exam: NORMAL BREATHING PATTERN - Cardiovascular Exam Cardiovascular Exam: absent: JVD - GI/Abdominal Exam GI & Abdominal Exam: absent: Distended - Rectal Exam Rectal Exam: Deferred - Exam Additional comments: Deferred. - Extremities Exam Extremities Exam: Normal Inspection - Back Exam Back Exam: NORMAL INSPECTION - Neurological Exam Additional comments: Asleep. - Psychiatric Exam Additional comments: Asleep. - Skin Skin Exam: Normal Color Assessment and Plan - Assessment and Plan (Free Text) Assessment: Rectal pain-subsided with morphine sulfate. Cervical cancer. Rectal cancer. CAD CKD Depression. Plan: Morphine 2 mg IV was given. Continue present management.
[2018-06-18] MEDS ORDERED: Pantoprazole 40 mg EC Tab PO SCH (06:00)
--- NOTE | 2018-06-18 08:26 | CP.PCM.PN ---
Subjective - Date & Time of Evaluation Date of Evaluation: 06/18/18 Time of Evaluation: 07:15 - Subjective Subjective: General Surgery progress ntoe for Dr. Almendarez covering fopr Dr. Greene Patient seen this morning at bedside. She refused to be examined in any way stating that we could "read the chart" or "talk to Dr. Ford". Patient endorses pain "down there" and continued bleeding though she is unsure of whether vaginal or rectal. She endorses some dysuria a few days ago but none at this time. She is able to ambulate and otherwise denies VALENCIA, SOB, CP, n/v, f/c, and dizziness. Objective - Vital Signs/Intake and Output Vital Signs (last 24 hours): Temp Pulse Resp BP Pulse Ox 97.3 F L 80 20 168/93 H 97 06/18/18 08:03 06/18/18 08:03 06/18/18 08:03 06/18/18 08:03 06/18/18 08:03 Intake and Output: 06/18/18 06/18/18 06:59 18:59 Intake Total 300 Output Total 750 Balance -450 - Medications Medications: Current Medications Aspirin (Ecotrin) 81 mg PO DAILY [facility] Metoprolol Tartrate (Lopressor) 25 mg PO BRKDIN [facility] Montelukast Sodium (Singulair) 10 mg PO HS [facility] Last Admin: 06/17/18 21:29 Dose: 10 mg Morphine Sulfate (Morphine) 2 mg IVP Q3H PRN PRN Reason: Pain, severe (8-10) Last Admin: 06/18/18 05:46 Dose: 2 mg Non-Formulary Medication (Terconazole [Terconazole]) 80 mg VG DAILY [facility] Non-Formulary Medication (Tranexamic Acid [Lysteda]) 2 tab PO BID [facility] Pantoprazole Sodium (Protonix Ec Tab) 40 mg PO ACB [facility] Sertraline HCl (Zoloft) 25 mg PO QAM [facility] Sucralfate (Carafate Oral Susp) 1 gm PO ACBD [facility] - Labs Labs: 06/17/18 14:43 06/17/18 14:43 PT 12.6 SECONDS (9.4-12.5) H 06/17/18 14:43 INR 1.14 06/17/18 14:43 APTT 37.2 Seconds (26.9-38.3) 06/17/18 14:43 - Constitutional Appears: Well, Non-toxic, No Acute Distress - Additional Findings Additional findings: Patient refused exam Assessment and Plan - Assessment and Plan (Free Text) Assessment: 67 F with pertinent PMH of stage IV cervical cancer, radiation cystitis and stercoral ulcer with blood in BM/in diaper, concern for colovesicular fistula on CT Plan: - Determine goals of care at this time - Consider palliative consult - previous discussion 06/03/18 patient states Full Code unless condition irreversible, then patient would like to be DNR/DNI - Recommend contrast enema vs methylene blue study of the rectum to assess for possible colovesicular fistula - F/u GI recommendations - Adequate pain control - Continue to monitor for bleeding - Monitor H/H - Transfuse as needed (Hgb < 7) - Antibiotics for UTI as seen on UA - Clear liquid diet, advance as tolerated per GI recommendations - GI to perform flex sigmoidoscopy tomorrow - Consider Urology consult - Medical management per primary team - Patient refusing surgical interventions at this present time - Will continue to follow - Further recommendations per Dr. Erickson Kwok, PGY 1
[2018-06-18] MEDS: Sucralfate 1 gm/10 ml Oral Susp UD PO SCH ×2 (08:35→18:35)
[2018-06-18] MEDS: Pantoprazole 40 mg EC Tab PO SCH (08:36)
--- NOTE | 2018-06-18 09:00 | CP.PCM.CON ---
<Cheryl Gatica - Last Filed: 06/18/18 10:36> History of Present Illness - History of Present Illness History of Present Illness: GI consult note for Dr. Marco Gatica, PGY-2 Pt seen/examined at bedside 67F w/PMH sig for recurrent GI bleeds in setting of stercoral ulcer consulted for bright red blood per rectum x 3 days. Pt reports that the bleed is integrated into loose stools, on the paper when she wipes and sometimes drips down her legs when she feels the urge to defecate. Admits to weakness, sore throat/pain with swallowing foods, sore stomach- she occasionally spits up, occa sional SOB, and mouth pain. Denies dizziness, VALENCIA, vision changes, changes in bladder habits (has B/L nephrostomy tubes), decreased appetite. Last C-scope: 12/24/17- large amount of stool prohibiting good visualization, one 8mm rectal ulcer, not bleeding, unable to advance the scope PMH: metastatic cervical cancer (Stage IV) s/p chemoradiation, radiation cystitis, nephrostomy tubes, stercoral ulceration of the rectum, CAD s/p PCI, CKD, recurrent UTIs, chronic constipation, Watkins's esophagus, psoriasis, and depression, hx of GI bleeds PSH: Cardiac stents x 4, B/L nephrostomy tubes, hysterectomy ankle ORIF All: NKDA SH: Former heavy smoker, denies illicit drug use or ETOH use. FH: Non contributory Review of Systems - Review of Systems All systems: reviewed and no additional remarkable complaints except - Constitutional Constitutional: absent: Chills, Fever - EENT Eyes: absent: Change in Vision Nose/Mouth/Throat: Mouth Pain, Sore Throat - Cardiovascular Cardiovascular: absent: Chest Pain - Respiratory Respiratory: absent: Wheezing - Gastrointestinal Gastrointestinal: Diarrhea, Hematochezia, Loose Stools. absent: Abdominal Pain, Hematemesis, Melena, Nausea, Vomiting - Genitourinary Genitourinary: absent: Change in Urinary Stream - Musculoskeletal Musculoskeletal: absent: Back Pain - Integumentary Integumentary: absent: Rash - Neurological Neurological: absent: Dizziness - Psychiatric Psychiatric: absent: Change in Appetite - Endocrine Endocrine: Fatigue Past Patient History - Infectious Disease Hx of Infectious Diseases: None - Tetanus Immunizations Tetanus Immunization: Unknown - Past Medical History & Family History Past Medical History?: Yes - Past Social History Smoking Status: Former Smoker - CARDIAC Hx Pacemaker: No - PULMONARY Hx Bronchitis: Yes - NEUROLOGICAL Hx Paralysis: No - HEENT Hx HEENT Problems: Yes (glasses) - RENAL Hx Kidney Stones: Yes Hx Renal Failure: Yes Other/Comment: Nephrostomy tubes bilateral, 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 - ENDOCRINE/METABOLIC Hx Endocrine Disorders: No - HEMATOLOGICAL/ONCOLOGICAL Hx Blood Transfusions: Yes (01/2018) Hx Blood Transfusion Reaction: No - INTEGUMENTARY Hx Psoriasis: Yes - MUSCULOSKELETAL/RHEUMATOLOGICAL Hx Musculoskeletal Disorders: Yes (r ankle/ R WRIST FX R/T FALL 06/2015) - GASTROINTESTINAL Hx Gastrointestinal Disorders: Yes (GI bleed) Hx Diverticulitis: Yes Hx Gastroesophageal Reflux: Yes - GENITOURINARY/GYNECOLOGICAL Hx Genitourinary Disorders: Yes Hx Hematuria: Yes Hx Urinary Tract Infection: Yes Other/Comment: nephrostomy surgery - PSYCHIATRIC Hx Emotional Abuse: No Hx Physical Abuse: No Hx Substance Use: No - SURGICAL HISTORY Hx Cardiac Catheterization: Yes Hx Coronary Stent: Yes Hx Hysterectomy: Yes Other/Comment: nephrostomy tubes,CARDIAC STENTS ,HYSTERECTOMY,RIGHT ANKLE FX, - ANESTHESIA Hx Anesthesia: Yes Hx Anesthesia Reactions: Yes (NAUSEA) Hx Malignant Hyperthermia: No Meds Allergies/Adverse Reactions: Allergies Allergy/AdvReac Type Severity Reaction Status Date / Time No Known Allergies Allergy Verified 05/27/18 21:14 - Medications Medications: Current Medications Aspirin (Ecotrin) 81 mg PO DAILY [facility] Metoprolol Tartrate (Lopressor) 25 mg PO BRKDIN [facility] Last Admin: 06/18/18 08:36 Dose: 25 mg Montelukast Sodium (Singulair) 10 mg PO HS [facility] Last Admin: 06/17/18 21:29 Dose: 10 mg Morphine Sulfate (Morphine) 2 mg IVP Q3H PRN PRN Reason: Pain, severe (8-10) Last Admin: 06/18/18 08:37 Dose: 2 mg Non-Formulary Medication (Terconazole [Terconazole]) 80 mg VG DAILY [facility] Non-Formulary Medication (Tranexamic Acid [Lysteda]) 2 tab PO BID [facility] Pantoprazole Sodium (Protonix Ec Tab) 40 mg PO ACB [facility] Last Admin: 06/18/18 08:36 Dose: 40 mg Sertraline HCl (Zoloft) 25 mg PO QAM [facility] Sucralfate (Carafate Oral Susp) 1 gm PO ACBD [facility] Last Admin: 06/18/18 08:35 Dose: 1 gm Physical Exam - Constitutional Appears: Non-toxic, No Acute Distress - Head Exam Head Exam: ATRAUMATIC, NORMAL INSPECTION, NORMOCEPHALIC - Eye Exam Eye Exam: EOMI, Normal appearance - ENT Exam ENT Exam: Mucous Membranes Moist, Normal Exam - Neck Exam Neck exam: Positive for: Full Rom, Normal Inspection - Respiratory Exam Respiratory Exam: Clear to Auscultation Bilateral, NORMAL BREATHING PATTERN - Cardiovascular Exam Cardiovascular Exam: Tachycardia, +S1, +S2 - GI/Abdominal Exam GI & Abdominal Exam: Normal Bowel Sounds, Soft. absent: Distended (obese), Firm, Guarding, Tenderness - Rectal Exam Rectal Exam: Deferred (declined by patient) - Back Exam Additional comments: B/L nephrostomy tubes in place with clear yellow urine output - Neurological Exam Neurological exam: Alert, CN II-XII Intact, Oriented x3 - Psychiatric Exam Psychiatric exam: Normal Affect, Normal Mood - Skin Skin Exam: Dry, Intact, Normal Color, Warm Results - Vital Signs Recent Vital Signs: Last Vital Signs Temp 97.3 F L 06/18/18 08:03 Pulse 80 06/18/18 08:36 Resp 20 06/18/18 08:03 BP 168/93 H 06/18/18 08:36 Pulse Ox 97 06/18/18 08:03 - Labs Result Diagrams: 06/18/18 09:00 06/18/18 09:00 Labs: Laboratory Results - last 24 hr 06/17/18 06/17/18 06/17/18 14:43 14:43 14:43 WBC 5.4 RBC 3.25 L Hgb 9.3 L Hct 30.4 L MCV 93.5 MCH 28.6 MCHC 30.6 L RDW 17.4 H Plt Count 302 MPV 9.1 Neut % (Auto) 81.3 H Lymph % (Auto) 11.8 L [place] % (Auto) 6.5 H Eos % (Auto) 0.2 L Baso % (Auto) 0.2 Lymph # (Auto) 0.6 L [place] # (Auto) 0.4 Eos # (Auto) 0.0 Baso # (Auto) 0.01 Absolute Neuts (auto) 4.35 PT 12.6 H INR 1.14 APTT 37.2 Sodium 136 Potassium 3.7 Chloride 103 Carbon Dioxide 26 Anion Gap 11 BUN 19 Creatinine 1.4 H Est GFR ( Amer) 45 Est GFR (Non-Af Amer) 38 Random Glucose 92 Calcium 8.7 Total Bilirubin 0.3 AST 23 ALT 17 Alkaline Phosphatase 145 H Total Protein 6.8 Albumin 3.1 Globulin 3.7 Albumin/Globulin Ratio 0.9 L Urine Color Urine Appearance Urine pH Ur Specific [place] Urine Protein Urine Glucose (UA) Urine Ketones Urine Blood Urine Nitrate Urine Bilirubin Urine Urobilinogen Ur Leukocyte Esterase Urine RBC Urine WBC Ur Epithelial Cells Urine Bacteria Blood Type Antibody Screen BBK History Checked 06/17/18 06/17/18 14:43 14:58 WBC RBC Hgb Hct MCV MCH MCHC RDW Plt Count MPV Neut % (Auto) Lymph % (Auto) [place] % (Auto) Eos % (Auto) Baso % (Auto) Lymph # (Auto) [place] # (Auto) Eos # (Auto) Baso # (Auto) Absolute Neuts (auto) PT INR APTT Sodium Potassium Chloride Carbon Dioxide Anion Gap BUN Creatinine Est GFR ( Amer) Est GFR (Non-Af Amer) Random Glucose Calcium Total Bilirubin AST ALT Alkaline Phosphatase Total Protein Albumin Globulin Albumin/Globulin Ratio Urine Color Yellow Urine Appearance Cloudy Urine pH 6.0 Ur Specific [place] 1.025 Urine Protein 30 H Urine Glucose (UA) Negative Urine Ketones Negative Urine Blood Small H Urine Nitrate Positive H Urine Bilirubin Negative Urine Urobilinogen 0.2 Ur Leukocyte Esterase Moderate H Urine RBC 2 - 5 H Urine WBC Tntc H Ur Epithelial Cells 4 - 5 Urine Bacteria Many Blood Type O POSITIVE Antibody Screen Negative BBK History Checked Patient has bt Assessment & Plan - Assessment and Plan (Free Text) Assessment: 67F w/bright red blood per rectum in setting of stercoral ulcer history Plan: Monitor bowel movements for bleeding CLD Miralax Dulcolax Plan for flex/sig 06/19 Further care as per primary team DW Dr. Taisha Gatica, PGY-2 - Date & Time Date: 06/18/18 Time: 08:59 <Harvey Sumner V - Last Filed: 06/18/18 23:56> Meds - Medications Medications: Current Medications Aspirin (Ecotrin) 81 mg PO DAILY [facility] Last Admin: 06/18/18 11:30 Dose: 81 mg Dextrose/Sodium Chloride (Dextrose 5%/0.45% Ns 1000 Ml) 1,000 mls @ 75 mls/hr IV .[id number] [facility] Lidocaine/Prilocaine (Emla) 0 gm TOP TID PRN PRN Reason: Other Last Admin: 06/18/18 20:32 Dose: 1 appl Metoprolol Tartrate (Lopressor) 25 mg PO BRKDIN [facility] Last Admin: 06/18/18 18:36 Dose: 25 mg Montelukast Sodium (Singulair) 10 mg PO HS [facility] Last Admin: 06/18/18 21:43 Dose: 10 mg Morphine Sulfate (Morphine) 5 mg IVP Q3 PRN PRN Reason: Pain, severe (8-10) Last Admin: 06/18/18 21:44 Dose: 5 mg Non-Formulary Medication (Terconazole [Terconazole]) 80 mg VG DAILY [facility] Last Admin: 06/18/18 11:31 Dose: Not Given Tranexamic Acid [ Lysteda] 650 Mg Tab (Home Med) 2 tab PO BID [facility] Pantoprazole Sodium (Protonix Ec Tab) 40 mg PO ACB [facility] Last Admin: 06/18/18 08:36 Dose: 40 mg Sertraline HCl (Zoloft) 25 mg PO QAM [facility] Last Admin: 06/18/18 11:31 Dose: 25 mg Sucralfate (Carafate Oral Susp) 1 gm PO ACBD [facility] Last Admin: 06/18/18 18:35 Dose: 1 gm Results - Vital Signs Recent Vital Signs: Last Vital Signs Temp 98.4 F 06/18/18 18:00 Pulse 88 06/18/18 18:36 Resp 18 06/18/18 18:00 BP 154/98 H 06/18/18 18:36 Pulse Ox 97 06/18/18 18:00 - Labs Result Diagrams: 06/18/18 09:00 06/18/18 09:00 Labs: Laboratory Results - last 24 hr 06/17/18 06/18/18 06/18/18 14:58 09:00 09:00 WBC 4.9 RBC 3.22 L Hgb 9.3 L Hct 30.0 L MCV 93.2 MCH 28.9 MCHC 31.0 RDW 17.6 H Plt Count 306 MPV 8.8 Sodium 139 Potassium 3.8 Chloride 104 Carbon Dioxide 28 Anion Gap 10 BUN 16 Creatinine 1.2 Est GFR ( Amer) 54 Est GFR (Non-Af Amer) 45 Random Glucose 96 Calcium 9.0 Total Bilirubin 0.3 AST 25 ALT 9 Alkaline Phosphatase 133 H Total Protein 6.8 Albumin 3.2 Globulin 3.6 Albumin/Globulin Ratio 0.9 L Blood Type O POSITIVE Antibody Screen Negative Crossmatch See Detail BBK History Checked Patient has bt Attending/Attestation - Attestation I have personally seen and examined this patient.: Yes I have fully participated in the care of the patient.: Yes I have reviewed all pertinent clinical information: Yes Notes (Text): This is an addendum to GI consultreport dictated by the resident. The patient was seen and examined earlier. Medical records, lab studies, imagings were reviewed. Last 24 hours events reviewed. Agreed with the above treatment plan as outlined in resident 's notes with the addition of the following 06/18/18 23:56
[2018-06-18 09:11] LABS: HEMOGLOBIN 9.3 g/dL (12.0-16.0); MEAN CELL VOLUME 93.2 fl (80.0-105.0); MEAN CORPUSCULAR HEMOGLOBIN 28.9 pg (25.0-35.0); MEAN PLATELET VOLUME 8.8 fl (7.0-11.0); RBC 3.22 10^6/uL (3.5-6.1); RED CELL DISTRIBUTION WIDTH 17.6 % (11.5-14.5); WHITE BLOOD COUNT 4.9 10^3/uL (4.5-11.0)
[2018-06-18 09:35] LABS: ALB/GLOB RATIO 0.9 (1.1-1.8); ALBUMIN 3.2 g/dL (3.0-4.8)
[2018-06-18] MEDS ORDERED: POLYETHYLENE GLYCOL 3350 17 GM/Dose PACKET PO SCH (10:45)
[2018-06-18] MEDS: POLYETHYLENE GLYCOL 3350 17 GM/Dose PACKET PO SCH ×5 (11:30→21:42)
[2018-06-18] MEDS: Bisacodyl 5mg EC Tab PO SCH ×2 (11:30→21:43)
[2018-06-18] MEDS: TRANEXAMIC ACID PO SCH ×2 (11:31→18:32)
[2018-06-18] MEDS: TERCONAZOLE 80 MG VG SCH (11:31)
--- NOTE | 2018-06-18 12:03 | CP.PCM.PN ---
Subjective - Date & Time of Evaluation Date of Evaluation: 06/18/18 Time of Evaluation: 12:00 - Subjective Subjective: Emmanuel Moura PGY2 - Heme/Onc Progress Note Patient seen and examined this AM. No acute events reported overnight. Patient reports continued fatigue and weakness. She reports over the past few days she has been having loose stool for which have shown blood upon cleaning. Objective - Vital Signs/Intake and Output Vital Signs (last 24 hours): Temp Pulse Resp BP Pulse Ox 97.3 F L 80 20 168/93 H 97 06/18/18 08:03 06/18/18 08:36 06/18/18 08:03 06/18/18 08:36 06/18/18 08:03 Intake and Output: 06/18/18 06/18/18 06:59 18:59 Intake Total 300 Output Total 750 Balance -450 - Medications Medications: Current Medications Aspirin (Ecotrin) 81 mg PO DAILY [facility] Last Admin: 06/18/18 11:30 Dose: 81 mg Bisacodyl (Dulcolax) 10 mg PO Q8 [facility] Stop: 06/18/18 22:01 Last Admin: 06/18/18 11:30 Dose: 10 mg Dextrose/Sodium Chloride (Dextrose 5%/0.45% Ns 1000 Ml) 1,000 mls @ 75 mls/hr IV .[id number] [facility] Metoprolol Tartrate (Lopressor) 25 mg PO BRKDIN [facility] Last Admin: 06/18/18 08:36 Dose: 25 mg Montelukast Sodium (Singulair) 10 mg PO HS [facility] Last Admin: 06/17/18 21:29 Dose: 10 mg Morphine Sulfate (Morphine) 4 mg IVP Q3H PRN PRN Reason: Pain, severe (8-10) Non-Formulary Medication (Terconazole [Terconazole]) 80 mg VG DAILY [facility] Last Admin: 06/18/18 11:31 Dose: Not Given Non-Formulary Medication (Tranexamic Acid [Lysteda]) 2 tab PO BID [facility] Last Admin: 06/18/18 11:31 Dose: Not Given Pantoprazole Sodium (Protonix Ec Tab) 40 mg PO ACB [facility] Last Admin: 06/18/18 08:36 Dose: 40 mg Polyethylene Glycol (Miralax) 17 gm PO Q2 [facility] Stop: 06/18/18 20:01 Last Admin: 06/18/18 11:30 Dose: 17 gm Sertraline HCl (Zoloft) 25 mg PO QAM [facility] Last Admin: 06/18/18 11:31 Dose: 25 mg Sucralfate (Carafate Oral Susp) 1 gm PO ACBD [facility] Last Admin: 06/18/18 08:35 Dose: 1 gm - Labs Labs: 06/18/18 09:00 06/18/18 09:00 PT 12.6 SECONDS (9.4-12.5) H 06/17/18 14:43 INR 1.14 06/17/18 14:43 APTT 37.2 Seconds (26.9-38.3) 06/17/18 14:43 - Head Exam Head Exam: ATRAUMATIC, NORMOCEPHALIC - Eye Exam Eye Exam: EOMI, PERRL - ENT Exam ENT Exam: Mucous Membranes Moist - Respiratory Exam Respiratory Exam: Clear to Ausculation Bilateral, NORMAL BREATHING PATTERN - Cardiovascular Exam Cardiovascular Exam: REGULAR RHYTHM, +S1, +S2 - GI/Abdominal Exam GI & Abdominal Exam: Soft - Rectal Exam Rectal Exam: Deferred - Neurological Exam Neurological Exam: Alert, Awake, Oriented x3 Additional comments: motor and sensory grossly intact - Psychiatric Exam Psychiatric exam: Agitated - Skin Skin Exam: Dry - Additional Findings Additional findings: Patient physical exam limited secondary to patient compliance Assessment and Plan - Assessment and Plan (Free Text) Assessment: 67 yo F with PMH of stage 4 cervical cancer s/p chemoradiation, CAD s/p stenting(x4), CKD, h/o nephrostomy tubes, radiation cystitis, psoriasis, depression, and stercoral rectal ulcer [place] [facility] [place]. Plan: Bright red blood per rectum -Abdominal CT on admission: possible colovesicular fistula involving a segment of distal sigmoid colon abutting the posterior margin of partially fillled urinary bladder, rectal wall thickening, -Patient refusing further rectal exam -GI consulted and following, follow up full recs - Flex sig scheduled tentatively for tomorrow - NS and D5W 75mL/hr -General Surgery consulted and following o Recommending contrast enema vs. methylene blue study to assess for possible colovesicular fistula -Type and crossmatch 2 units Depression -continue home med zoloft 25mg po qd CKD -Cr appears to be at baseline -continue to monitor -with bilateral nephrostomy tubes, draining Anemia - Hgb at her baseline ~9 - previous iron studies indicate anemia of chronic disease CAD status post stent -status post 4 coronary stents -no active issues -continue current medications -Last known LVEF 62% DVT/GI PPX Further recommendations as per Dr. Ford Patient case discussed with attending Dr. Ford
[2018-06-18] MEDS: Morphine 4 mg/ml ISec IVP PRN ×2 (12:20→15:32)
--- NOTE | 2018-06-18 13:34 | CP.PCM.APN ---
Subjective - Date & Time of Evaluation Date of Evaluation: 06/18/18 Time of Evaluation: 10:00 - Subjective Subjective: Pt. seen and examined in bed, complaints of moderate pain to vaginal area. Objective - Vital Signs/Intake and Output Vital Signs (last 24 hours): Temp Pulse Resp BP Pulse Ox 97.3 F L 80 20 168/93 H 97 06/18/18 08:03 06/18/18 08:36 06/18/18 08:03 06/18/18 08:36 06/18/18 08:03 Intake and Output: 06/18/18 06/18/18 06:59 18:59 Intake Total 300 Output Total 750 Balance -450 - Medications Medications: Current Medications Aspirin (Ecotrin) 81 mg PO DAILY [facility] Last Admin: 06/18/18 11:30 Dose: 81 mg Bisacodyl (Dulcolax) 10 mg PO Q8 [facility] Stop: 06/18/18 22:01 Last Admin: 06/18/18 11:30 Dose: 10 mg Dextrose/Sodium Chloride (Dextrose 5%/0.45% Ns 1000 Ml) 1,000 mls @ 75 mls/hr IV .[id number] [facility] Metoprolol Tartrate (Lopressor) 25 mg PO BRKDIN [facility] Last Admin: 06/18/18 08:36 Dose: 25 mg Montelukast Sodium (Singulair) 10 mg PO HS [facility] Last Admin: 06/17/18 21:29 Dose: 10 mg Morphine Sulfate (Morphine) 4 mg IVP Q3H PRN PRN Reason: Pain, severe (8-10) Last Admin: 06/18/18 12:20 Dose: 4 mg Non-Formulary Medication (Terconazole [Terconazole]) 80 mg VG DAILY [facility] Last Admin: 06/18/18 11:31 Dose: Not Given Non-Formulary Medication (Tranexamic Acid [Lysteda]) 2 tab PO BID [facility] Last Admin: 06/18/18 11:31 Dose: Not Given Pantoprazole Sodium (Protonix Ec Tab) 40 mg PO ACB [facility] Last Admin: 06/18/18 08:36 Dose: 40 mg Polyethylene Glycol (Miralax) 17 gm PO Q2 [facility] Stop: 06/18/18 20:01 Last Admin: 06/18/18 11:30 Dose: 17 gm Sertraline HCl (Zoloft) 25 mg PO QAM [facility] Last Admin: 06/18/18 11:31 Dose: 25 mg Sucralfate (Carafate Oral Susp) 1 gm PO ACBD [facility] Last Admin: 06/18/18 08:35 Dose: 1 gm - Labs Labs: 06/18/18 09:00 06/18/18 09:00 PT 12.6 SECONDS (9.4-12.5) H 06/17/18 14:43 INR 1.14 06/17/18 14:43 APTT 37.2 Seconds (26.9-38.3) 06/17/18 14:43 - Constitutional Appears: Well, Non-toxic - Head Exam Head Exam: NORMOCEPHALIC - Eye Exam Eye Exam: Normal appearance - ENT Exam ENT Exam: Mucous Membranes Moist - Neck Exam Neck Exam: Full ROM - Respiratory Exam Respiratory Exam: Clear to Ausculation Bilateral - Cardiovascular Exam Cardiovascular Exam: REGULAR RHYTHM, +S1, +S2 - GI/Abdominal Exam GI & Abdominal Exam: Soft, Tenderness - Rectal Exam Rectal Exam: Bloody Stool - Exam External exam: absent: Ecchymosis, Erythema, Lacerations, Lesions, NORMAL EXTERNAL EXAM, Swelling Speculum exam: absent: Cervical Discharge, Erythema, Foreign Body, Laceration, NORMAL SPECULUM EXAM, Tissue, Vaginal Bleeding, Vaginal Discharge Bimanual exam: absent: Adenexal Mass, Adnexal, Cervical Motion Tendernes, NORMAL BIMANUAL EXAM, Uterine Enlargement, Uterine Tenderness Additional comments: b/l nephrostomy tubes noted, draining clear anny urine. - Extremities Exam Extremities Exam: Full ROM - Back Exam Back Exam: Full ROM - Neurological Exam Neurological Exam: Alert, Awake, Oriented x3 - Psychiatric Exam Psychiatric exam: Anxious - Skin Skin Exam: Dry, Intact, Normal Color, Warm Assessment and Plan - Assessment and Plan (Free Text) Assessment: ITS Impressions Abdomen/Pelvis CT 06/17/18 15:49 IMPRESSION: Possible colovesicular fistula involving a segment of distal sigmoid colon abutting the posterior margin of partially filled urinary bladder. Clinical correlation recommended.. There is rectal wall thickening. In situ bilateral nephrostomy tubes. See above discussion for additional details. Note these findings were discussed with emergency room PA as only a approximately 5;15 p.m. with written down and read back verification. Assessment: 67F w/bright red blood per rectum in setting of stercoral ulcer history, admitted with complaints of vaginal discomfort and rectal pain, lower GI bleed for further eval and treatment. Plan: 1. Vaginal / Rectal Pain, with bright red blood with hx of rectal ulcer Sigmoidoscopy in am no surgical plans as per Dr. Almendarez, unsure if fistula. cont. pain meds as ordered. 2. Anemia improved. - continue to monitor h/h. Will continue to monitor clinical status and follow closely.
--- NOTE | 2018-06-18 17:04 | CARD ---
APPROVED REPORT Date of service: 06/18/2018 EKG Measurement Heart [id number] <Conclusion> Sinus rhythm with occasional premature ventricular complexes Moderate voltage criteria for LVH, may be normal variant Borderline ECG
[2018-06-18] MEDS: Lidocaine/Prilocaine 2.5%-2.5% Cream (5 gm) TOP PRN (20:32)
[2018-06-19] MEDS ORDERED: DiphenhydrAMINE 50 mg/ml Inj IVP ONE (01:01)
[2018-06-19] MEDS: Lidocaine/Prilocaine 2.5%-2.5% Cream (5 gm) TOP PRN (01:18)
[2018-06-19] MEDS: Sucralfate 1 gm/10 ml Oral Susp UD PO SCH ×2 (08:04→18:16)
[2018-06-19] MEDS: Pantoprazole 40 mg EC Tab PO SCH (08:06)
[2018-06-19 08:19] LABS: HEMOGLOBIN 9.2 g/dL (12.0-16.0); MEAN CELL VOLUME 94.1 fl (80.0-105.0); MEAN CORPUSCULAR HEMOGLOBIN 28.6 pg (25.0-35.0); MEAN CORPUSCULAR HGB CONC 30.4 g/dl (31.0-37.0); RBC 3.22 10^6/uL (3.5-6.1); RED CELL DISTRIBUTION WIDTH 17.5 % (11.5-14.5); WHITE BLOOD COUNT 4.9 10^3/uL (4.5-11.0)
[2018-06-19 08:34] LABS: ALB/GLOB RATIO 0.9 (1.1-1.8); ALBUMIN 3.1 g/dL (3.0-4.8); CALCIUM 8.9 mg/dL (8.4-10.5)
--- NOTE | 2018-06-19 09:45 | CP.PCM.PN ---
Subjective - Date & Time of Evaluation Date of Evaluation: 06/19/18 Time of Evaluation: 09:45 - Subjective Subjective: Emmanuel Moura PGY2 - Heme/Onc Progress Note Patient seen and examined this AM. No acute events reported overnight. Patient reports multiple bowel movements in preparation for her colonoscopy today. She reports minimal blood in the toilet bowel after defecation and upon her cleaning herself. She denies dizziness, double vision, chest pain, shortness of breath. She reports her pain is controlled. Objective - Vital Signs/Intake and Output Vital Signs (last 24 hours): Temp Pulse Resp BP Pulse Ox 97.4 F L 95 H 20 141/88 96 06/19/18 06:00 06/19/18 08:04 06/19/18 06:00 06/19/18 08:04 06/19/18 06:00 Intake and Output: 06/19/18 06/19/18 06:59 18:59 Intake Total 3480 Output Total 550 Balance 2930 - Medications Medications: Current Medications Aspirin (Ecotrin) 81 mg PO DAILY [facility] Last Admin: 06/18/18 11:30 Dose: 81 mg Dextrose/Sodium Chloride (Dextrose 5%/0.45% Ns 1000 Ml) 1,000 mls @ 75 mls/hr IV .[id number] [facility] Lidocaine/Prilocaine (Emla) 0 gm TOP TID PRN PRN Reason: Other Last Admin: 06/19/18 01:18 Dose: 1 appl Metoprolol Tartrate (Lopressor) 25 mg PO BRKDIN [facility] Last Admin: 06/19/18 08:04 Dose: 25 mg Montelukast Sodium (Singulair) 10 mg PO HS [facility] Last Admin: 06/18/18 21:43 Dose: 10 mg Morphine Sulfate (Morphine) 5 mg IVP Q3 PRN PRN Reason: Pain, severe (8-10) Last Admin: 06/19/18 07:36 Dose: 5 mg Non-Formulary Medication (Terconazole [Terconazole]) 80 mg VG DAILY [facility] Last Admin: 06/18/18 11:31 Dose: Not Given Tranexamic Acid [ Lysteda] 650 Mg Tab (Home Med) 2 tab PO BID [facility] Pantoprazole Sodium (Protonix Ec Tab) 40 mg PO ACB [facility] Last Admin: 06/19/18 08:06 Dose: 40 mg Sertraline HCl (Zoloft) 25 mg PO QAM [facility] Last Admin: 06/18/18 11:31 Dose: 25 mg Sucralfate (Carafate Oral Susp) 1 gm PO ACBD [facility] Last Admin: 06/19/18 08:04 Dose: Not Given - Labs Labs: 06/19/18 08:00 06/19/18 08:00 PT 12.6 SECONDS (9.4-12.5) H 06/17/18 14:43 INR 1.14 06/17/18 14:43 APTT 37.2 Seconds (26.9-38.3) 06/17/18 14:43 - Constitutional Appears: Non-toxic - Head Exam Head Exam: ATRAUMATIC, NORMOCEPHALIC - Eye Exam Eye Exam: EOMI, PERRL - ENT Exam ENT Exam: Mucous Membranes Moist - Respiratory Exam Respiratory Exam: Clear to Ausculation Bilateral, NORMAL BREATHING PATTERN - Cardiovascular Exam Cardiovascular Exam: REGULAR RHYTHM, +S1, +S2 - GI/Abdominal Exam GI & Abdominal Exam: Soft, Normal Bowel Sounds - Extremities Exam Extremities Exam: Full ROM. absent: Calf Tenderness, Pedal Edema - Neurological Exam Neurological Exam: Alert, Awake, Oriented x3 Neuro motor strength exam: Left Upper Extremity: 5, Right Upper Extremity: 5, Left Lower Extremity: 5, Right Lower Extremity: 5 - Psychiatric Exam Psychiatric exam: Normal Affect, Normal Mood - Skin Skin Exam: Dry, Warm Assessment and Plan - Assessment and Plan (Free Text) Assessment: 67 yo F with PMH of stage 4 cervical cancer s/p chemoradiation, CAD s/p stenting(x4), CKD, h/o nephrostomy tubes, radiation cystitis, psoriasis, depression, and stercoral rectal ulcer is admitted to [facility] [place] for concern for GI bleeding. Plan: Bright red blood per rectum -Abdominal CT on admission: possible colovesicular fistula involving a segment of distal sigmoid colon abutting the posterior margin of partially fillled urinary bladder, rectal wall thickening, -Patient refusing further rectal exam -GI consulted and following, follow up full recs - Flex sig scheduled tentatively for today with Dr. Sumner - Follow up report -General Surgery consulted and following - Recommending contrast enema vs. methylene blue study to assess for possible colovesicular fistula - Continue to monitor CBC, H/H stable Anemia - Hgb at her baseline ~9 - previous iron studies indicate anemia of chronic disease Depression -continue home med zoloft 25mg po qd CKD -Cr appears to be at baseline -continue to monitor -with bilateral nephrostomy tubes, draining appropriately CAD status post stent (x4) -continue current medications -Last known LVEF 62% DVT/GI PPX Further recommendations as per Dr. Ford
--- NOTE | 2018-06-19 10:52 | CP.PCM.PN ---
Subjective - Date & Time of Evaluation Date of Evaluation: 06/19/18 Time of Evaluation: 10:48 - Subjective Subjective: Reji Antunez PGY1 Progress Note for Dr. Greene Pt examined at bedside this morning. She reports many bowel movements overnight with some associated bleeding. She denies fever, chills, nausea, vomiting, dysuria. Objective - Vital Signs/Intake and Output Vital Signs (last 24 hours): Temp Pulse Resp BP Pulse Ox 97.4 F L 95 H 20 141/88 96 06/19/18 06:00 06/19/18 08:04 06/19/18 06:00 06/19/18 08:04 06/19/18 06:00 Intake and Output: 06/19/18 06/19/18 06:59 18:59 Intake Total 3480 Output Total 550 Balance 2930 - Medications Medications: Current Medications Aspirin (Ecotrin) 81 mg PO DAILY [facility] Last Admin: 06/18/18 11:30 Dose: 81 mg Dextrose/Sodium Chloride (Dextrose 5%/0.45% Ns 1000 Ml) 1,000 mls @ 75 mls/hr IV .[id number] [facility] Lidocaine/Prilocaine (Emla) 0 gm TOP TID PRN PRN Reason: Other Last Admin: 06/19/18 01:18 Dose: 1 appl Metoprolol Tartrate (Lopressor) 25 mg PO BRKDIN [facility] Last Admin: 06/19/18 08:04 Dose: 25 mg Montelukast Sodium (Singulair) 10 mg PO HS [facility] Last Admin: 06/18/18 21:43 Dose: 10 mg Morphine Sulfate (Morphine) 5 mg IVP Q3 PRN PRN Reason: Pain, severe (8-10) Last Admin: 06/19/18 07:36 Dose: 5 mg Non-Formulary Medication (Terconazole [Terconazole]) 80 mg VG DAILY [facility] Last Admin: 06/18/18 11:31 Dose: Not Given Tranexamic Acid [ Lysteda] 650 Mg Tab (Home Med) 2 tab PO BID [facility] Pantoprazole Sodium (Protonix Ec Tab) 40 mg PO ACB [facility] Last Admin: 06/19/18 08:06 Dose: 40 mg Sertraline HCl (Zoloft) 25 mg PO QAM [facility] Last Admin: 06/18/18 11:31 Dose: 25 mg Sucralfate (Carafate Oral Susp) 1 gm PO ACBD [facility] Last Admin: 06/19/18 08:04 Dose: Not Given - Labs Labs: 06/19/18 08:00 06/19/18 08:00 PT 12.6 SECONDS (9.4-12.5) H 06/17/18 14:43 INR 1.14 06/17/18 14:43 APTT 37.2 Seconds (26.9-38.3) 06/17/18 14:43 - Constitutional Appears: Well, No Acute Distress - Head Exam Head Exam: ATRAUMATIC, NORMOCEPHALIC - Eye Exam Eye Exam: Normal appearance - Neck Exam Neck Exam: Normal Inspection - GI/Abdominal Exam Additional comments: pt did not consent to abdominal exam - Neurological Exam Neurological Exam: Alert, Awake, Normal Gait, Oriented x3 - Psychiatric Exam Psychiatric exam: Normal Affect, Normal Mood - Skin Skin Exam: Normal Color Assessment and Plan - Assessment and Plan (Free Text) Assessment: 67 F with pertinent PMH of stage IV cervical cancer, radiation cystitis and stercoral ulcer with blood in BM/in diaper, concern for colovesicular fistula on CT Plan: - pt for flex sigmoidoscopy today, f/u report - contrast enema vs methylene blue study of the rectum to assess for possible colovesicular fistula - consider Urology consult for colovesicular fistula evaluation - H/H stable, continue to monitory for any bleeding and transfuse as needed - continue antibiotics for UTI - medical management as per primary team - Will continue to follow - further recommendations as per Dr. Greene
[2018-06-19] MEDS: TERCONAZOLE 80 MG VG SCH (11:02)
[2018-06-19] MEDS: TRANEXAMIC ACID 650 MG PO SCH ×2 (11:03→18:18)
--- NOTE | 2018-06-19 15:40 | CP.PCM.PCO ---
Physician Communication Note - Physician Communication Note Physician Communication Note: for flex sigmoidoscopy today for eval of colorectal fistual
[2018-06-19] MEDS ORDERED: Sodium Chloride 0.9% 1,000 ML IV SCH (15:45)
[2018-06-19] MEDS ORDERED: Propofol 10 mg/ml Inj (20 ML) ONE (16:03)
[2018-06-19] MEDS ORDERED: Phenylephrine 10 mg/ml Inj ONE (16:37)
[2018-06-19] MEDS ORDERED: HYDROmorphone 0.5 mg/0.5 ml ISec IVP PRN (17:00)
[2018-06-19] MEDS: Cefepime 1gm in NS 100ml 1 GM/100 ML BAG IVPB SCH (22:40)
[2018-06-20] MEDS: Dextrose 5%/0.45% NS 1,000 ML IV SCH ×2 (02:52→18:37)
[2018-06-20 06:32] LABS: BASO # 0.03 K/mm3 (0.0-2.0); BASO % 0.5 % (0.0-3.0); EOS # 0.1 (0.0-0.7); EOS % 1.1 % (1.5-5.0); HEMOGLOBIN 9.1 g/dL (12.0-16.0); LYMPH # 0.8 (1.2-3.4); MEAN CELL VOLUME 93.4 fl (80.0-105.0); MEAN CORPUSCULAR HEMOGLOBIN 28.4 pg (25.0-35.0); MEAN CORPUSCULAR HGB CONC 30.4 g/dl (31.0-37.0); MEAN PLATELET VOLUME 9.3 fl (7.0-11.0); MONO # 0.6 (0.1-0.6); MONO % 9.3 % (1.0-6.0); RBC 3.2 10^6/uL (3.5-6.1); RED CELL DISTRIBUTION WIDTH 17.6 % (11.5-14.5); WHITE BLOOD COUNT 6.2 10^3/uL (4.5-11.0)
[2018-06-20 06:50] LABS: ALB/GLOB RATIO 0.9 (1.1-1.8); ALBUMIN 3.1 g/dL (3.0-4.8); CALCIUM 9.2 mg/dL (8.4-10.5)
--- NOTE | 2018-06-20 08:12 | CP.PCM.PN ---
Subjective - Date & Time of Evaluation Date of Evaluation: 06/20/18 Time of Evaluation: 06:55 - Subjective Subjective: Surgery Progress note. Dr. Greene Pt seen and examined at bedside. No acute events overnight. No N/V/D. Had Flex Sig yesterday, nursing reports no active bleeding, awaiting report. Patient denies any bloody bowel movements. No new complaints. Objective - Vital Signs/Intake and Output Vital Signs (last 24 hours): Temp Pulse Resp BP Pulse Ox 97.8 F 96 H 12 125/78 100 06/19/18 17:30 06/19/18 18:17 06/19/18 17:30 06/19/18 18:17 06/19/18 17:30 Intake and Output: 06/20/18 06/20/18 06:59 18:59 Intake Total 840 Output Total 525 Balance 315 - Medications Medications: Current Medications Aspirin (Ecotrin) 81 mg PO DAILY [facility] Last Admin: 06/19/18 10:59 Dose: Not Given Dextrose/Sodium Chloride (Dextrose 5%/0.45% Ns 1000 Ml) 1,000 mls @ 75 mls/hr IV .[id number] [facility] Last Admin: 06/20/18 02:52 Dose: Not Given Cefepime HCl (Maxipime 1gm) 1 gm in 100 mls @ 100 mls/hr IVPB Q12 [facility]; Protocol Last Admin: 06/19/18 22:40 Dose: 100 mls/hr Lidocaine/Prilocaine (Emla) 0 gm TOP TID PRN PRN Reason: Other Last Admin: 06/19/18 01:18 Dose: 1 appl Metoprolol Tartrate (Lopressor) 25 mg PO BRKDIN [facility] Last Admin: 06/19/18 18:17 Dose: 25 mg Montelukast Sodium (Singulair) 10 mg PO HS [facility] Last Admin: 06/19/18 22:40 Dose: 10 mg Morphine Sulfate (Morphine) 5 mg IVP Q3 PRN PRN Reason: Pain, severe (8-10) Last Admin: 06/20/18 05:47 Dose: 5 mg Non-Formulary Medication (Terconazole [Terconazole]) 80 mg VG DAILY [facility] Last Admin: 06/19/18 11:02 Dose: Not Given Tranexamic Acid [ Lysteda] 650 Mg Tab (Home Med) 2 tab PO BID [facility] Last Admin: 06/19/18 18:18 Dose: Not Given Pantoprazole Sodium (Protonix Ec Tab) 40 mg PO ACB [facility] Last Admin: 06/19/18 08:06 Dose: 40 mg Sertraline HCl (Zoloft) 25 mg PO QAM [facility] Last Admin: 06/19/18 11:51 Dose: 25 mg Sucralfate (Carafate Oral Susp) 1 gm PO ACBD [facility] Last Admin: 06/19/18 18:16 Dose: 1 gm - Labs Labs: 06/20/18 06:00 06/20/18 06:00 PT 12.6 SECONDS (9.4-12.5) H 06/17/18 14:43 INR 1.14 06/17/18 14:43 APTT 37.2 Seconds (26.9-38.3) 06/17/18 14:43 - Constitutional Appears: Well, No Acute Distress - Head Exam Head Exam: ATRAUMATIC, NORMAL INSPECTION, NORMOCEPHALIC - Eye Exam Eye Exam: EOMI, Normal appearance. absent: Scleral icterus - ENT Exam ENT Exam: Mucous Membranes Moist - Respiratory Exam Respiratory Exam: NORMAL BREATHING PATTERN. absent: Accessory Muscle Use, Respiratory Distress - Cardiovascular Exam Cardiovascular Exam: absent: JVD - GI/Abdominal Exam GI & Abdominal Exam: Soft. absent: Distended, Guarding, Tenderness, Rebound - Extremities Exam Extremities Exam: Normal Inspection. absent: Calf Tenderness - Neurological Exam Neurological Exam: Alert, Awake, Oriented x3 - Psychiatric Exam Psychiatric exam: Normal Affect, Normal Mood - Skin Skin Exam: Dry, Intact, Normal Color, Warm Assessment and Plan - Assessment and Plan (Free Text) Assessment: 67yo F with GIB, resolved and ? colovesicular fistula. Plan: - H/H stable, no more episodes of bleeding - Patient would not like to have any surgical intervention for the ?colovesicular fistula - Recommend formal Cystoscopy by Urology to evaluate difinitavely for possible colovesicular fistula - No acute surgical intervention warranted Further recs as per Dr. Ramona Byers PGY2 Surgery
--- NOTE | 2018-06-20 08:17 | CP.PCM.PN ---
<Cheryl Gatica - Last Filed: 06/20/18 11:12> Subjective - Date & Time of Evaluation Date of Evaluation: 06/20/18 Time of Evaluation: 08:15 - Subjective Subjective: GI progress note for Dr. Marco Gatica, PGY-2 Pt seen/examined at bedside. Pt reports more formed, dark brown stools. Reports she had some abdominal pain this AM- alleviated by pain medications. Had broth last night, well tolerated. Denies hematochezia, melena, nausea, vomiting, fevers, chills. Pt upset because right nephrotostomy tube was inadvertantly pulled when positioned for flex sig yesterday, and reports it is now leaking. Objective - Vital Signs/Intake and Output Vital Signs (last 24 hours): Temp Pulse Resp BP Pulse Ox 97.8 F 96 H 12 125/78 100 06/19/18 17:30 06/19/18 18:17 06/19/18 17:30 06/19/18 18:17 06/19/18 17:30 Intake and Output: 06/20/18 06/20/18 06:59 18:59 Intake Total 840 Output Total 525 Balance 315 - Medications Medications: Current Medications Aspirin (Ecotrin) 81 mg PO DAILY [facility] Last Admin: 06/19/18 10:59 Dose: Not Given Dextrose/Sodium Chloride (Dextrose 5%/0.45% Ns 1000 Ml) 1,000 mls @ 75 mls/hr IV .[id number] [facility] Last Admin: 06/20/18 02:52 Dose: Not Given Cefepime HCl (Maxipime 1gm) 1 gm in 100 mls @ 100 mls/hr IVPB Q12 [facility]; Protocol Last Admin: 06/19/18 22:40 Dose: 100 mls/hr Lidocaine/Prilocaine (Emla) 0 gm TOP TID PRN PRN Reason: Other Last Admin: 06/19/18 01:18 Dose: 1 appl Metoprolol Tartrate (Lopressor) 25 mg PO BRKDIN [facility] Last Admin: 06/19/18 18:17 Dose: 25 mg Montelukast Sodium (Singulair) 10 mg PO HS [facility] Last Admin: 06/19/18 22:40 Dose: 10 mg Morphine Sulfate (Morphine) 5 mg IVP Q3 PRN PRN Reason: Pain, severe (8-10) Last Admin: 06/20/18 05:47 Dose: 5 mg Non-Formulary Medication (Terconazole [Terconazole]) 80 mg VG DAILY [facility] Last Admin: 06/19/18 11:02 Dose: Not Given Tranexamic Acid [ Lysteda] 650 Mg Tab (Home Med) 2 tab PO BID [facility] Last Admin: 06/19/18 18:18 Dose: Not Given Pantoprazole Sodium (Protonix Ec Tab) 40 mg PO ACB [facility] Last Admin: 06/19/18 08:06 Dose: 40 mg Sertraline HCl (Zoloft) 25 mg PO QAM [facility] Last Admin: 06/19/18 11:51 Dose: 25 mg Sucralfate (Carafate Oral Susp) 1 gm PO ACBD [facility] Last Admin: 06/19/18 18:16 Dose: 1 gm - Labs Labs: 06/20/18 06:00 06/20/18 06:00 PT 12.6 SECONDS (9.4-12.5) H 06/17/18 14:43 INR 1.14 06/17/18 14:43 APTT 37.2 Seconds (26.9-38.3) 06/17/18 14:43 - Constitutional Appears: Non-toxic, No Acute Distress - Head Exam Head Exam: ATRAUMATIC, NORMAL INSPECTION, NORMOCEPHALIC - Eye Exam Eye Exam: EOMI, Normal appearance - ENT Exam ENT Exam: Mucous Membranes Moist, Normal Exam - Neck Exam Neck Exam: Full ROM, Normal Inspection - Respiratory Exam Respiratory Exam: Clear to Ausculation Bilateral, NORMAL BREATHING PATTERN. absent: Rales, Rhonchi, Wheezes, Respiratory Distress - Cardiovascular Exam Cardiovascular Exam: REGULAR RHYTHM, +S1, +S2 - GI/Abdominal Exam GI & Abdominal Exam: Soft. absent: Distended, Tenderness - Back Exam Additional comments: bilateral nephrostomy tubes in place- no palpable leakage at this time - Neurological Exam Neurological Exam: Alert, Awake, CN II-XII Intact, Oriented x3 - Psychiatric Exam Psychiatric exam: Normal Affect, Normal Mood - Skin Skin Exam: Dry, Intact, Normal Color, Warm Assessment and Plan - Assessment and Plan (Free Text) Assessment: 67F w/PMH sig for cervical cancer s/p flex sig Plan: FU biopsy pathology FU MRI pelvis On heart healthy diet Hgb stable- no more accounts of bleeding per rectum Monitor for bleeding Further care as per primary team DW Dr. Sumner <Harvey Sumner V - Last Filed: 06/20/18 23:51> Objective - Vital Signs/Intake and Output Vital Signs (last 24 hours): Temp Pulse Resp BP Pulse Ox 98.3 F 87 16 109/67 97 06/20/18 16:58 06/20/18 18:32 06/20/18 16:58 06/20/18 18:32 06/20/18 16:58 Intake and Output: 06/20/18 06/21/18 18:59 06:59 Intake Total 1820 Output Total 450 Balance 1370 - Medications Medications: Current Medications Aspirin (Ecotrin) 81 mg PO DAILY [facility] Last Admin: 06/20/18 09:25 Dose: 81 mg Hydromorphone HCl (Dilaudid) 2 mg IVP Q3H PRN PRN Reason: Pain, severe (8-10) Last Admin: 06/20/18 22:04 Dose: 2 mg Dextrose/Sodium Chloride (Dextrose 5%/0.45% Ns 1000 Ml) 1,000 mls @ 75 mls/hr IV .[id number] [facility] Last Admin: 06/20/18 18:37 Dose: Not Given Cefepime HCl (Maxipime 1gm) 1 gm in 100 mls @ 100 mls/hr IVPB Q12 [facility]; Protocol Last Admin: 06/20/18 22:04 Dose: 100 mls/hr Lidocaine/Prilocaine (Emla) 0 gm TOP TID PRN PRN Reason: Other Last Admin: 06/19/18 01:18 Dose: 1 appl Metoprolol Tartrate (Lopressor) 25 mg PO BRKDIN [facility] Last Admin: 06/20/18 18:32 Dose: 25 mg Montelukast Sodium (Singulair) 10 mg PO HS [facility] Last Admin: 06/20/18 22:04 Dose: 10 mg Non-Formulary Medication (Terconazole [Terconazole]) 80 mg VG DAILY [facility] Last Admin: 06/20/18 09:27 Dose: Not Given Tranexamic Acid [ Lysteda] 650 Mg Tab (Home Med) 2 tab PO BID [facility] Last Admin: 06/20/18 18:47 Dose: Not Given Pantoprazole Sodium (Protonix Ec Tab) 40 mg PO ACB [facility] Last Admin: 06/20/18 09:25 Dose: 40 mg Sertraline HCl (Zoloft) 25 mg PO QAM [facility] Last Admin: 06/20/18 09:25 Dose: 25 mg Sucralfate (Carafate Oral Susp) 1 gm PO ACBD [facility] Last Admin: 06/20/18 18:30 Dose: 1 gm - Labs Labs: 06/20/18 06:00 06/20/18 06:00 PT 12.6 SECONDS (9.4-12.5) H 06/17/18 14:43 INR 1.14 06/17/18 14:43 APTT 37.2 Seconds (26.9-38.3) 06/17/18 14:43 Attending/Attestation - Attestation I have personally seen and examined this patient.: Yes I have fully participated in the care of the patient.: Yes I have reviewed all pertinent clinical information, including history, physical exam and plan: Yes Notes (Text): This is an addendum to GI progress report dictated by the resident. The patient was seen and examined earlier. Medical records, lab studies, imagings were reviewed. Last 24 hours events reviewed. Agreed with the above treatment plan as outlined in resident's notes with the addition of the following Status post flex sig yesterday Extensive pelvic mass compressing rectum causing deformity The scope could not be advanced to be on 12 cm Biopsy undertaken Few rectal telangiectasias were seen nontreated Discussed with Dr. Lyn. 06/20/18 23:47
[2018-06-20] MEDS: Pantoprazole 40 mg EC Tab PO SCH (09:25)
[2018-06-20] MEDS: Cefepime 1gm in NS 100ml 1 GM/100 ML BAG IVPB SCH ×2 (09:25→22:04)
[2018-06-20] MEDS: Sucralfate 1 gm/10 ml Oral Susp UD PO SCH ×2 (09:25→18:30)
[2018-06-20] MEDS: TERCONAZOLE 80 MG VG SCH (09:27)
[2018-06-20] MEDS: TRANEXAMIC ACID 650 MG PO SCH ×2 (09:28→18:47)
[2018-06-20] MEDS: HYDROmorphone 2 mg/ml ISec IVP PRN ×4 (12:13→22:04)
--- NOTE | 2018-06-20 15:36 | CP.PCM.PN ---
Subjective - Date & Time of Evaluation Date of Evaluation: 06/20/18 Time of Evaluation: 09:00 - Subjective Subjective: Emmanuel Zeny PGY2 - Heme/Onc Progress Note Patient seen and examined this AM. Patient underwent colonoscopy yesterday with minimal success. She continues to express concern for her pain and pain medication regiment. She reports loose bowel movements. Nursing reports indicate patient to be poorly compliant with orders, medications, and generally accepted hygiene practices. Patient along with family at bedside had in depth conversation with Dr. Ford regarding goals of care, plans for potential chemotherapy down the road vs. hospice. Patient and family instructed further care for her is to control her disease processes and not to cure. All parties were in understanding. Objective - Vital Signs/Intake and Output Vital Signs (last 24 hours): Temp Pulse Resp BP Pulse Ox 98 F 93 H 20 122/80 97 06/20/18 08:22 06/20/18 09:27 06/20/18 08:22 06/20/18 09:27 06/20/18 08:22 Intake and Output: 06/20/18 06/20/18 06:59 18:59 Intake Total 840 Output Total 525 Balance 315 - Medications Medications: Current Medications Aspirin (Ecotrin) 81 mg PO DAILY [facility] Last Admin: 06/20/18 09:25 Dose: 81 mg Hydromorphone HCl (Dilaudid) 2 mg IVP Q3H PRN PRN Reason: Pain, severe (8-10) Last Admin: 06/20/18 15:09 Dose: 2 mg Dextrose/Sodium Chloride (Dextrose 5%/0.45% Ns 1000 Ml) 1,000 mls @ 75 mls/hr IV .[id number] [facility] Last Admin: 06/20/18 02:52 Dose: Not Given Cefepime HCl (Maxipime 1gm) 1 gm in 100 mls @ 100 mls/hr IVPB Q12 [facility]; Protocol Last Admin: 06/20/18 09:25 Dose: 100 mls/hr Lidocaine/Prilocaine (Emla) 0 gm TOP TID PRN PRN Reason: Other Last Admin: 06/19/18 01:18 Dose: 1 appl Metoprolol Tartrate (Lopressor) 25 mg PO BRKDIN [facility] Last Admin: 06/20/18 09:27 Dose: 25 mg Montelukast Sodium (Singulair) 10 mg PO HS [facility] Last Admin: 06/19/18 22:40 Dose: 10 mg Non-Formulary Medication (Terconazole [Terconazole]) 80 mg VG DAILY [facility] Last Admin: 06/20/18 09:27 Dose: Not Given Tranexamic Acid [ Lysteda] 650 Mg Tab (Home Med) 2 tab PO BID [facility] Last Admin: 06/20/18 09:28 Dose: Not Given Pantoprazole Sodium (Protonix Ec Tab) 40 mg PO ACB [facility] Last Admin: 06/20/18 09:25 Dose: 40 mg Sertraline HCl (Zoloft) 25 mg PO QAM [facility] Last Admin: 06/20/18 09:25 Dose: 25 mg Sucralfate (Carafate Oral Susp) 1 gm PO ACBD [facility] Last Admin: 06/20/18 09:25 Dose: 1 gm - Labs Labs: 06/20/18 06:00 06/20/18 06:00 PT 12.6 SECONDS (9.4-12.5) H 06/17/18 14:43 INR 1.14 06/17/18 14:43 APTT 37.2 Seconds (26.9-38.3) 06/17/18 14:43 - Constitutional Appears: Non-toxic, No Acute Distress, Older Than Stated Age, Chronically Ill - Head Exam Head Exam: ATRAUMATIC, NORMOCEPHALIC - Eye Exam Eye Exam: EOMI, PERRL - ENT Exam ENT Exam: Mucous Membranes Moist - Respiratory Exam Respiratory Exam: Decreased Breath Sounds, NORMAL BREATHING PATTERN - Cardiovascular Exam Cardiovascular Exam: REGULAR RHYTHM, +S1, +S2 - GI/Abdominal Exam GI & Abdominal Exam: Soft, Normal Bowel Sounds. absent: Rigid, Tenderness - Extremities Exam Extremities Exam: Full ROM. absent: Pedal Edema - Back Exam Additional comments: left nephrostomy tube sutures in place right nephrostomy tube dislodged with minimal leakage - Neurological Exam Neurological Exam: Alert, Awake, Normal Gait, Oriented x3 Neuro motor strength exam: Left Upper Extremity: 5, Right Upper Extremity: 5, Left Lower Extremity: 5, Right Lower Extremity: 5 - Psychiatric Exam Psychiatric exam: Agitated - Skin Skin Exam: Dry, Warm Assessment and Plan - Assessment and Plan (Free Text) Assessment: 67 yo F with PMH of stage 4 cervical cancer s/p chemoradiation, CAD s/p stentin g(x4), CKD, h/o nephrostomy tubes, radiation cystitis, psoriasis, depression, and stercoral rectal ulcer is admitted [place] [facility] bleeding. Patient underwent colonoscopy 06/19 with GI, biopsy taken. Further testing per GI team scheduled for patient. Plan: Bright red blood per rectum - improving - no further reports of bright red blood per rectum, investigation ongoing -Abdominal CT on admission: possible colovesicular fistula involving a segment of distal sigmoid colon abutting the posterior margin of partially fillled urinary bladder, rectal wall thickening, -GI consulted and following, follow up full recs - MRI - Follow up report -General Surgery consulted and following - Recommending contrast enema vs. methylene blue study to assess for possible colovesicular fistula - Recommending possible urological eval for ureterocolovesicular fistula - Continue to monitor CBC, H/H stable Anemia - Hgb at her baseline ~9 - previous iron studies indicate anemia of chronic disease - Patient hemoglobing continues to hold steady at ~9 UTI - Urine clx with E. Coli, Urine showing pos leuk est and nitrates - Patient asymptomatic, no leukocytosis - Cefepime Depression -continue home med zoloft 25mg po qd CKD -Cr appears to be at baseline -continue to monitor -with bilateral nephrostomy tubes - right nephrostomy tube dislodged, IR contacted CAD status post stent (x4) -continue current medications -Last known LVEF 62% DVT/GI PPX Further recommendations as per Dr. Ford
[2018-06-21] MEDS: HYDROmorphone 2 mg/ml ISec IVP PRN ×4 (02:35→22:42)
[2018-06-21] MEDS ORDERED: DiphenhydrAMINE 50 mg/ml Inj IVP ONE (03:05)
--- NOTE | 2018-06-21 03:14 | CP.PCM.PN ---
Subjective - Date & Time of Evaluation Date of Evaluation: 06/21/18 Time of Evaluation: 03:13 - Subjective Subjective: To be dictated. Benadryl 25 mg IV ordered for itching. seen. has dry skin. noticed scratching on face ,body. Advised skin lotion. Objective - Vital Signs/Intake and Output Vital Signs (last 24 hours): Temp Pulse Resp BP Pulse Ox 98.3 F 87 16 109/67 97 06/20/18 16:58 06/20/18 18:32 06/20/18 16:58 06/20/18 18:32 06/20/18 16:58 Intake and Output: 06/20/18 06/21/18 18:59 06:59 Intake Total 1820 Output Total 450 Balance 1370 - Medications Medications: Current Medications Aspirin (Ecotrin) 81 mg PO DAILY [facility] Last Admin: 06/20/18 09:25 Dose: 81 mg Hydromorphone HCl (Dilaudid) 2 mg IVP Q3H PRN PRN Reason: Pain, severe (8-10) Last Admin: 06/21/18 02:35 Dose: 2 mg Dextrose/Sodium Chloride (Dextrose 5%/0.45% Ns 1000 Ml) 1,000 mls @ 75 mls/hr IV .[id number] [facility] Last Admin: 06/20/18 18:37 Dose: Not Given Cefepime HCl (Maxipime 1gm) 1 gm in 100 mls @ 100 mls/hr IVPB Q12 [facility]; Protocol Last Admin: 06/20/18 22:04 Dose: 100 mls/hr Lidocaine/Prilocaine (Emla) 0 gm TOP TID PRN PRN Reason: Other Last Admin: 06/19/18 01:18 Dose: 1 appl Metoprolol Tartrate (Lopressor) 25 mg PO BRKDIN [facility] Last Admin: 06/20/18 18:32 Dose: 25 mg Montelukast Sodium (Singulair) 10 mg PO HS [facility] Last Admin: 06/20/18 22:04 Dose: 10 mg Non-Formulary Medication (Terconazole [Terconazole]) 80 mg VG DAILY [facility] Last Admin: 06/20/18 09:27 Dose: Not Given Tranexamic Acid [ Lysteda] 650 Mg Tab (Home Med) 2 tab PO BID [facility] Last Admin: 06/20/18 18:47 Dose: Not Given Pantoprazole Sodium (Protonix Ec Tab) 40 mg PO ACB [facility] Last Admin: 06/20/18 09:25 Dose: 40 mg Sertraline HCl (Zoloft) 25 mg PO QAM [facility] Last Admin: 06/20/18 09:25 Dose: 25 mg Sucralfate (Carafate Oral Susp) 1 gm PO ACBD [facility] Last Admin: 06/20/18 18:30 Dose: 1 gm - Labs Labs: 06/20/18 06:00 06/20/18 06:00 PT 12.6 SECONDS (9.4-12.5) H 06/17/18 14:43 INR 1.14 06/17/18 14:43 APTT 37.2 Seconds (26.9-38.3) 06/17/18 14:43
[2018-06-21 07:00] LABS: BASO # 0.02 K/mm3 (0.0-2.0); BASO % 0.4 % (0.0-3.0); EOS # 0.2 (0.0-0.7); HEMOGLOBIN 7.9 g/dL (12.0-16.0); LYMPH # 0.5 (1.2-3.4); LYMPH % 10.1 % (22.0-35.0); MEAN CELL VOLUME 94.5 fl (80.0-105.0); MEAN CORPUSCULAR HEMOGLOBIN 28.8 pg (25.0-35.0); MEAN CORPUSCULAR HGB CONC 30.5 g/dl (31.0-37.0); MEAN PLATELET VOLUME 9.2 fl (7.0-11.0); MONO # 0.6 (0.1-0.6); RBC 2.74 10^6/uL (3.5-6.1); RED CELL DISTRIBUTION WIDTH 17.9 % (11.5-14.5); WHITE BLOOD COUNT 5.1 10^3/uL (4.5-11.0)
[2018-06-21 07:19] LABS: ALB/GLOB RATIO 0.9 (1.1-1.8); ALBUMIN 2.6 g/dL (3.0-4.8); ALT/SGPT < 6 U/L (7-56); AST/SGOT 21 U/L (14-36); BLOOD UREA NITROGEN 14 mg/dL (7-21); CALCIUM 8.8 mg/dL (8.4-10.5); GFR NON-AFRICAN AMERICAN 32
[2018-06-21] MEDS: Sucralfate 1 gm/10 ml Oral Susp UD PO SCH ×2 (07:44→17:54)
[2018-06-21] MEDS: Pantoprazole 40 mg EC Tab PO SCH (07:45)
--- NOTE | 2018-06-21 08:20 | CP.PCM.PN ---
<Cheryl Gatica - Last Filed: 06/21/18 08:21> Subjective - Date & Time of Evaluation Date of Evaluation: 06/21/18 Time of Evaluation: 08:19 - Subjective Subjective: GI progress note for Dr. Marco Gatica, PGY-2 Pt seen/examined at bedside Pt reports no BMs since last night, does not remember if it was bloody last night. Admits to flatus. Denies N & V, F & C, SOB, CP, dizziness, gait disturbances. Objective - Vital Signs/Intake and Output Vital Signs (last 24 hours): Temp Pulse Resp BP Pulse Ox 98.2 F 88 20 124/78 99 06/21/18 07:56 06/21/18 07:56 06/21/18 07:56 06/21/18 07:56 06/21/18 07:56 Intake and Output: 06/21/18 06/21/18 06:59 18:59 Intake Total 1940 Output Total 525 Balance 1415 - Medications Medications: Current Medications Aspirin (Ecotrin) 81 mg PO DAILY [facility] Last Admin: 06/20/18 09:25 Dose: 81 mg Hydromorphone HCl (Dilaudid) 2 mg IVP Q3H PRN PRN Reason: Pain, severe (8-10) Last Admin: 06/21/18 02:35 Dose: 2 mg Dextrose/Sodium Chloride (Dextrose 5%/0.45% Ns 1000 Ml) 1,000 mls @ 75 mls/hr IV .[id number] [facility] Last Admin: 06/20/18 18:37 Dose: Not Given Cefepime HCl (Maxipime 1gm) 1 gm in 100 mls @ 100 mls/hr IVPB Q12 [facility]; Protocol Last Admin: 06/20/18 22:04 Dose: 100 mls/hr Lidocaine/Prilocaine (Emla) 0 gm TOP TID PRN PRN Reason: Other Last Admin: 06/19/18 01:18 Dose: 1 appl Metoprolol Tartrate (Lopressor) 25 mg PO BRKDIN [facility] Last Admin: 06/20/18 18:32 Dose: 25 mg Montelukast Sodium (Singulair) 10 mg PO HS [facility] Last Admin: 06/20/18 22:04 Dose: 10 mg Non-Formulary Medication (Terconazole [Terconazole]) 80 mg VG DAILY [facility] Last Admin: 06/20/18 09:27 Dose: Not Given Tranexamic Acid [ Lysteda] 650 Mg Tab (Home Med) 2 tab PO BID [facility] Last Admin: 06/20/18 18:47 Dose: Not Given Pantoprazole Sodium (Protonix Ec Tab) 40 mg PO ACB [facility] Last Admin: 06/20/18 09:25 Dose: 40 mg Sertraline HCl (Zoloft) 25 mg PO QAM [facility] Last Admin: 06/20/18 09:25 Dose: 25 mg Sucralfate (Carafate Oral Susp) 1 gm PO ACBD [facility] Last Admin: 06/20/18 18:30 Dose: 1 gm - Labs Labs: 06/21/18 06:00 06/21/18 06:00 PT 12.6 SECONDS (9.4-12.5) H 06/17/18 14:43 INR 1.14 06/17/18 14:43 APTT 37.2 Seconds (26.9-38.3) 06/17/18 14:43 - Constitutional Appears: Non-toxic, No Acute Distress - Head Exam Head Exam: ATRAUMATIC, NORMAL INSPECTION, NORMOCEPHALIC - Eye Exam Eye Exam: EOMI, Normal appearance - ENT Exam ENT Exam: Mucous Membranes Moist, Normal Exam - Neck Exam Neck Exam: Full ROM, Normal Inspection - Respiratory Exam Respiratory Exam: NORMAL BREATHING PATTERN - Cardiovascular Exam Cardiovascular Exam: REGULAR RHYTHM - GI/Abdominal Exam GI & Abdominal Exam: Soft. absent: Distended, Firm, Guarding, Rigid, Tenderness - Neurological Exam Neurological Exam: Alert, Awake, CN II-XII Intact, Normal Gait, Oriented x3 - Psychiatric Exam Psychiatric exam: Normal Affect, Normal Mood - Skin Skin Exam: Dry, Intact, Normal Color, Warm Assessment and Plan - Assessment and Plan (Free Text) Assessment: 67F w/PMH sig for cervical cancer s/p flex sig for recent rectal bleeding Plan: FU biopsy pathology FU MRI pelvis On heart healthy diet Hgb decreased- no accounts of bleeding per rectum Monitor for bleeding Further care as per primary team DW Dr. Sumner <Harvey Sumner V - Last Filed: 06/21/18 20:03> Objective - Vital Signs/Intake and Output Vital Signs (last 24 hours): Temp Pulse Resp BP Pulse Ox 97.9 F 81 18 122/80 95 06/21/18 18:46 06/21/18 18:46 06/21/18 18:46 06/21/18 18:46 06/21/18 15:01 Intake and Output: 06/21/18 06/22/18 18:59 06:59 Intake Total 283 Balance 283 - Medications Medications: Current Medications Aspirin (Ecotrin) 81 mg PO DAILY [facility] Last Admin: 06/21/18 10:32 Dose: 81 mg Hydromorphone HCl (Dilaudid) 2 mg IVP Q3H PRN PRN Reason: Pain, severe (8-10) Last Admin: 06/21/18 16:27 Dose: 2 mg Dextrose/Sodium Chloride (Dextrose 5%/0.45% Ns 1000 Ml) 1,000 mls @ 75 mls/hr IV .[id number] [facility] Last Admin: 06/20/18 18:37 Dose: Not Given Cefepime HCl (Maxipime 1gm) 1 gm in 100 mls @ 100 mls/hr IVPB DAILY [facility]; Pro tocol Lidocaine/Prilocaine (Emla) 0 gm TOP TID PRN PRN Reason: Other Last Admin: 06/19/18 01:18 Dose: 1 appl Metoprolol Tartrate (Lopressor) 25 mg PO BRKDIN [facility] Last Admin: 06/21/18 17:55 Dose: 25 mg Montelukast Sodium (Singulair) 10 mg PO HS [facility] Last Admin: 06/20/18 22:04 Dose: 10 mg Non-Formulary Medication (Terconazole [Terconazole]) 80 mg VG DAILY [facility] Last Admin: 06/21/18 09:46 Dose: Not Given Tranexamic Acid [ Lysteda] 650 Mg Tab (Home Med) 2 tab PO BID [facility] Last Admin: 06/21/18 17:57 Dose: 2 tab Pantoprazole Sodium (Protonix Ec Tab) 40 mg PO ACB [facility] Last Admin: 06/21/18 07:45 Dose: 40 mg Sertraline HCl (Zoloft) 25 mg PO QAM [facility] Last Admin: 06/21/18 09:50 Dose: 25 mg Sucralfate (Carafate Oral Susp) 1 gm PO ACBD [facility] Last Admin: 06/21/18 17:54 Dose: 1 gm - Labs Labs: 06/21/18 06:00 06/21/18 06:00 PT 12.6 SECONDS (9.4-12.5) H 06/17/18 14:43 INR 1.14 06/17/18 14:43 APTT 37.2 Seconds (26.9-38.3) 06/17/18 14:43 Attending/Attestation - Attestation I have personally seen and examined this patient.: Yes I have fully participated in the care of the patient.: Yes I have reviewed all pertinent clinical information, including history, physical exam and plan: Yes Notes (Text): This patient was seen and evaluated here earlier along with the resident Tolerating diet. Status post change of nephrostomy tube Awaiting for MRI Patient does have deformed the rectum with the stricture secondary to infiltrating/sub-epithelial lesion extensive in the rectum. There were small erosions which could contribute to the bleeding Patient also had a few scattered diverticula Awaiting for the biopsy report 06/21/18 20:01
--- NOTE | 2018-06-21 08:24 | CP.PCM.PN ---
Subjective - Date & Time of Evaluation Date of Evaluation: 06/21/18 Time of Evaluation: 08:21 - Subjective Subjective: Emmanuel Moura PGY2 - Progress Note for Dr. Ford Patient seen and evaluated in AM. No acute events reported overnight. Patient indicates she feels fatigue. Reports soft formed stools. Denies bright red blood per rectum, chest pain, shortness of breath, nausea, vomiting, fever, chills. Patient to undergo replacement of right nephrostomy tube Objective - Vital Signs/Intake and Output Vital Signs (last 24 hours): Temp Pulse Resp BP Pulse Ox 98.2 F 88 20 124/78 99 06/21/18 07:56 06/21/18 07:56 06/21/18 07:56 06/21/18 07:56 06/21/18 07:56 Intake and Output: 06/21/18 06/21/18 06:59 18:59 Intake Total 1940 Output Total 525 Balance 1415 - Medications Medications: Current Medications Aspirin (Ecotrin) 81 mg PO DAILY [facility] Last Admin: 06/20/18 09:25 Dose: 81 mg Hydromorphone HCl (Dilaudid) 2 mg IVP Q3H PRN PRN Reason: Pain, severe (8-10) Last Admin: 06/21/18 02:35 Dose: 2 mg Dextrose/Sodium Chloride (Dextrose 5%/0.45% Ns 1000 Ml) 1,000 mls @ 75 mls/hr IV .[id number] [facility] Last Admin: 06/20/18 18:37 Dose: Not Given Cefepime HCl (Maxipime 1gm) 1 gm in 100 mls @ 100 mls/hr IVPB Q12 [facility]; Protocol Last Admin: 06/20/18 22:04 Dose: 100 mls/hr Lidocaine/Prilocaine (Emla) 0 gm TOP TID PRN PRN Reason: Other Last Admin: 06/19/18 01:18 Dose: 1 appl Metoprolol Tartrate (Lopressor) 25 mg PO BRKDIN [facility] Last Admin: 06/20/18 18:32 Dose: 25 mg Montelukast Sodium (Singulair) 10 mg PO HS [facility] Last Admin: 06/20/18 22:04 Dose: 10 mg Non-Formulary Medication (Terconazole [Terconazole]) 80 mg VG DAILY [facility] Last Admin: 06/20/18 09:27 Dose: Not Given Tranexamic Acid [ Lysteda] 650 Mg Tab (Home Med) 2 tab PO BID [facility] Last Admin: 06/20/18 18:47 Dose: Not Given Pantoprazole Sodium (Protonix Ec Tab) 40 mg PO ACB [facility] Last Admin: 06/20/18 09:25 Dose: 40 mg Sertraline HCl (Zoloft) 25 mg PO QAM [facility] Last Admin: 06/20/18 09:25 Dose: 25 mg Sucralfate (Carafate Oral Susp) 1 gm PO ACBD [facility] Last Admin: 06/20/18 18:30 Dose: 1 gm - Labs Labs: 06/21/18 06:00 06/21/18 06:00 PT 12.6 SECONDS (9.4-12.5) H 06/17/18 14:43 INR 1.14 06/17/18 14:43 APTT 37.2 Seconds (26.9-38.3) 06/17/18 14:43 - Constitutional Appears: No Acute Distress - Head Exam Head Exam: ATRAUMATIC, NORMOCEPHALIC - Eye Exam Eye Exam: EOMI, PERRL - Respiratory Exam Respiratory Exam: Clear to Ausculation Bilateral, NORMAL BREATHING PATTERN - Cardiovascular Exam Cardiovascular Exam: REGULAR RHYTHM, +S1, +S2 - GI/Abdominal Exam GI & Abdominal Exam: Soft, Normal Bowel Sounds - Neurological Exam Neurological Exam: Alert, Awake, Oriented x3 Neuro motor strength exam: Left Upper Extremity: 5, Right Upper Extremity: 5, Left Lower Extremity: 5, Right Lower Extremity: 5 - Skin Skin Exam: Dry, Warm Assessment and Plan - Assessment and Plan (Free Text) Assessment: 67 yo F with PMH of stage 4 cervical cancer s/p chemoradiation, CAD s/p stenting(x4), CKD, h/o nephrostomy tubes, radiation cystitis, psoriasis, depression, and stercoral rectal ulcer is admitted to [facility] [place] for concern for GI bleeding. Patient underwent colonoscopy 06/19 with GI, biopsy taken, awaiting path report. Patient with improvement of blood per rectum. Plan: Bright red blood per rectum - improving - no further reports of bright red blood per rectum, investigation ongoing -Abdominal CT on admission: possible colovesicular fistula involving a segment of distal sigmoid colon abutting the posterior margin of partially fillled urinary bladder, rectal wall thickening, -GI consulted and following, follow up full recs - follow up MRI of pelvis - Follow up of biopsy path report -General Surgery consulted and following - Recommending contrast enema vs. methylene blue study to assess for possible colovesicular fistula - Recommending possible urological eval for ureterocolovesicular fistula - Patient denying surgical intervention at this time - Continue to monitor CBC, H/H stable Anemia - Hgb today shows to be 8.1 - Plan to transfuse 1 unir pRBC for goal of Hgb >8 - previous iron studies indicate anemia of chronic disease - Patient hemoglobin continues to hold steady at ~9 UTI - Urine clx with E. Coli, Urine showing pos leuk est and nitrates - Patient asymptomatic, no leukocytosis - Cefepime Depression -continue home med zoloft 25mg po qd CKD -Cr appears to be at baseline -continue to monitor -with bilateral nephrostomy tubes - right nephrostomy tube dislodged, IR contacted plan for reinsertion today CAD status post stent (x4) -continue current medications -Last known LVEF 62% DVT/GI PPX Further recommendations as per Dr. Ford
[2018-06-21] MEDS: Cefepime 1gm in NS 100ml 1 GM/100 ML BAG IVPB SCH (09:20)
[2018-06-21] MEDS: TERCONAZOLE 80 MG VG SCH (09:46)
[2018-06-21] MEDS: TRANEXAMIC ACID 650 MG PO SCH ×2 (09:46→17:57)
--- NOTE | 2018-06-21 11:16 | CP.PCM.PCO ---
Physician Communication Note - Physician Communication Note Physician Communication Note: pt.for nephrostomy tube replacement, Hgb 7.9,1 unit prbc ,MRI abdomen pendi
[2018-06-21] MEDS ORDERED: Iodixanol 320 MG/ML 200 ML BOTTLE IV ONE (12:31)
[2018-06-21] MEDS ORDERED: Lidocaine PF 2% (5 ml) Inj (For Cardiac Arrhy) ONE (12:31)
[2018-06-21] MEDS ORDERED: Midazolam 2 MG/2 ML VIAL ONE (13:43)
--- NOTE | 2018-06-21 20:51 | VASCULAR ---
PROCEDURE: 1. Replace dislodged right nephrostomy tube HISTORY: Cervical carcinoma. Chronic bilateral percutaneous nephrostomy tubes. Dislodged right tube. PHYSICIAN(S): Bruce Black MD. TECHNIQUE: The relative risks and indications of the procedure were explained to the patient and consent obtained. The patient was placed prone on the arteriogram table and the right back and flank prepped and draped in the usual sterile fashion. Conscious sedation and monitoring were provided throughout the procedure by a nurse. A 5 Pashto dilator was placed in the sinus tract of the right nephrostomy tube. Contrast was injected. A 0.035 glidewire was advanced into the right renal pelvis. Over the Glidewire a new 12 Pashto right nephrostomy tube was placed. Position was confirmed with injection of contrast. FINDINGS: There moderate to severe right hydronephrosis. There is complete obstruction of the distal right ureter. A left nephrostomy tube is present IMPRESSION: 1.Replaced dislodged right nephrostomy tube under fluoroscopic guidance. 2. Complete distal right ureteral obstruction
[2018-06-22] MEDS: HYDROmorphone 2 mg/ml ISec IVP PRN ×6 (03:34→23:32)
[2018-06-22 07:07] LABS: BASO # 0.01 K/mm3 (0.0-2.0); BASO % 0.3 % (0.0-3.0); HEMOGLOBIN 9.4 g/dL (12.0-16.0); LYMPH # 0.4 (1.2-3.4); LYMPH % 9.5 % (22.0-35.0); MEAN CELL VOLUME 91.8 fl (80.0-105.0); MEAN CORPUSCULAR HEMOGLOBIN 28.6 pg (25.0-35.0); MEAN CORPUSCULAR HGB CONC 31.1 g/dl (31.0-37.0); MEAN PLATELET VOLUME 9.3 fl (7.0-11.0); MONO # 0.2 (0.1-0.6); MONO % 6.2 % (1.0-6.0); RBC 3.29 10^6/uL (3.5-6.1); RED CELL DISTRIBUTION WIDTH 17.4 % (11.5-14.5); WHITE BLOOD COUNT 3.9 10^3/uL (4.5-11.0)
[2018-06-22 07:19] LABS: ALB/GLOB RATIO 0.8 (1.1-1.8); ALBUMIN 2.5 g/dL (3.0-4.8); CALCIUM 8.6 mg/dL (8.4-10.5)
[2018-06-22] MEDS: Cefepime 1gm in NS 100ml 1 GM/100 ML BAG IVPB SCH (09:23)
[2018-06-22] MEDS: TERCONAZOLE 80 MG VG SCH (09:24)
[2018-06-22] MEDS: Pantoprazole 40 mg EC Tab PO SCH (09:24)
[2018-06-22] MEDS: Sucralfate 1 gm/10 ml Oral Susp UD PO SCH ×2 (09:26→17:49)
[2018-06-22] MEDS: TRANEXAMIC ACID 650 MG PO SCH ×2 (09:28→17:49)
--- NOTE | 2018-06-22 11:34 | CP.PCM.PN ---
<Vivek Saul - Last Filed: 06/22/18 11:31> Subjective - Date & Time of Evaluation Date of Evaluation: 06/22/18 Time of Evaluation: 11:31 - Subjective Subjective: No complaints. Admits BM today, yellow. No acute overnight events. Objective - Vital Signs/Intake and Output Vital Signs (last 24 hours): Temp Pulse Resp BP Pulse Ox 97.6 F 86 12 117/74 95 06/21/18 23:14 06/21/18 23:14 06/21/18 23:14 06/21/18 23:14 06/21/18 15:01 Intake and Output: 06/22/18 06/22/18 06:59 18:59 Intake Total 2004 Output Total 658 Balance 1347 - Medications Medications: Current Medications Aspirin (Ecotrin) 81 mg PO DAILY [facility] Last Admin: 06/22/18 09:24 Dose: 81 mg Hydromorphone HCl (Dilaudid) 2 mg IVP Q3H PRN PRN Reason: Pain, severe (8-10) Last Admin: 06/22/18 08:39 Dose: 2 mg Dextrose/Sodium Chloride (Dextrose 5%/0.45% Ns 1000 Ml) 1,000 mls @ 75 mls/hr IV .[id number] [facility] Last Admin: 06/20/18 18:37 Dose: Not Given Cefepime HCl (Maxipime 1gm) 1 gm in 100 mls @ 100 mls/hr IVPB DAILY [facility]; Protocol Last Admin: 06/22/18 09:23 Dose: 100 mls/hr Lidocaine/Prilocaine (Emla) 0 gm TOP TID PRN PRN Reason: Other Last Admin: 06/19/18 01:18 Dose: 1 appl Metoprolol Tartrate (Lopressor) 25 mg PO BRKDIN [facility] Last Admin: 06/22/18 09:24 Dose: 25 mg Montelukast Sodium (Singulair) 10 mg PO HS [facility] Last Admin: 06/21/18 21:38 Dose: 10 mg Non-Formulary Medication (Terconazole [Terconazole]) 80 mg VG DAILY [facility] Last Admin: 06/22/18 09:24 Dose: Not Given Tranexamic Acid [ Lysteda] 650 Mg Tab (Home Med) 2 tab PO BID [facility] Last Admin: 06/22/18 09:28 Dose: 2 tab Pantoprazole Sodium (Protonix Ec Tab) 40 mg PO ACB [facility] Last Admin: 06/22/18 09:24 Dose: 40 mg Sertraline HCl (Zoloft) 25 mg PO QAM [facility] Last Admin: 06/21/18 09:50 Dose: 25 mg Sucralfate (Carafate Oral Susp) 1 gm PO ACBD [facility] Last Admin: 06/22/18 09:26 Dose: 1 gm - Labs Labs: 06/22/18 05:30 06/22/18 05:30 PT 12.6 SECONDS (9.4-12.5) H 06/17/18 14:43 INR 1.14 06/17/18 14:43 APTT 37.2 Seconds (26.9-38.3) 06/17/18 14:43 - Constitutional Appears: Non-toxic, No Acute Distress - Head Exam Head Exam: ATRAUMATIC, NORMAL INSPECTION - Respiratory Exam Respiratory Exam: Clear to Ausculation Bilateral, NORMAL BREATHING PATTERN - Cardiovascular Exam Cardiovascular Exam: REGULAR RHYTHM, +S1, +S2 - GI/Abdominal Exam GI & Abdominal Exam: Soft, Normal Bowel Sounds. absent: Tenderness - Neurological Exam Neurological Exam: Alert, Awake, Oriented x3 - Psychiatric Exam Psychiatric exam: Normal Affect, Normal Mood Assessment and Plan - Assessment and Plan (Free Text) Assessment: 67F w/PMH sig for cervical cancer s/p flex sig for recent rectal bleeding Plan: Flex/sig showed large likely extrinsic/subepithelial mass compressing rectum pathology shows necrotic inflammatory material, no cancer. FU MRI pelvis to better understand anatomic changes. Recommend bowel regimen to keep stool soft On heart healthy diet Hgb decreased- no accounts of bleeding per rectum Monitor for bleeding Further care as per primary team DW Dr. Sumner <Harvey Sumner V - Last Filed: 06/22/18 16:36> Objective - Vital Signs/Intake and Output Vital Signs (last 24 hours): Temp Pulse Resp BP Pulse Ox 97.4 F L 78 20 130/75 94 L 06/22/18 06:00 06/22/18 06:00 06/22/18 06:00 06/22/18 06:00 06/22/18 06:00 Intake and Output: 06/22/18 06/22/18 06:59 18:59 Intake Total 2004 Output Total 658 Balance 1347 - Medications Medications: Current Medications Aspirin (Ecotrin) 81 mg PO DAILY [facility] Last Admin: 06/22/18 09:24 Dose: 81 mg Docusate Sodium (Colace) 100 mg PO BID [facility] Hydromorphone HCl (Dilaudid) 2 mg IVP Q3H PRN PRN Reason: Pain, severe (8-10) Last Admin: 06/22/18 15:49 Dose: 2 mg Dextrose/Sodium Chloride (Dextrose 5%/0.45% Ns 1000 Ml) 1,000 mls @ 75 mls/hr IV .[id number] [facility] Last Admin: 06/20/18 18:37 Dose: Not Given Cefepime HCl (Maxipime 1gm) 1 gm in 100 mls @ 100 mls/hr IVPB DAILY [facility]; Protocol Last Admin: 06/22/18 09:23 Dose: 100 mls/hr Lidocaine/Prilocaine (Emla) 0 gm TOP TID PRN PRN Reason: Other Last Admin: 06/19/18 01:18 Dose: 1 appl Metoprolol Tartrate (Lopressor) 25 mg PO BRKDIN [facility] Last Admin: 06/22/18 09:24 Dose: 25 mg Montelukast Sodium (Singulair) 10 mg PO HS [facility] Last Admin: 06/21/18 21:38 Dose: 10 mg Non-Formulary Medication (Terconazole [Terconazole]) 80 mg VG DAILY [facility] Last Admin: 06/22/18 09:24 Dose: Not Given Tranexamic Acid [ Lysteda] 650 Mg Tab (Home Med) 2 tab PO BID [facility] Last Admin: 06/22/18 09:28 Dose: 2 tab Pantoprazole Sodium (Protonix Ec Tab) 40 mg PO ACB [facility] Last Admin: 06/22/18 09:24 Dose: 40 mg Polyethylene Glycol (Miralax) 17 gm PO DAILY [facility] Sertraline HCl (Zoloft) 25 mg PO QAM [facility] Last Admin: 06/22/18 10:15 Dose: 25 mg Sucralfate (Carafate Oral Susp) 1 gm PO ACBD [facility] Last Admin: 06/22/18 09:26 Dose: 1 gm - Labs Labs: 06/22/18 05:30 06/22/18 05:30 PT 12.6 SECONDS (9.4-12.5) H 06/17/18 14:43 INR 1.14 06/17/18 14:43 APTT 37.2 Seconds (26.9-38.3) 06/17/18 14:43 Attending/Attestation - Attestation I have personally seen and examined this patient.: Yes I have fully participated in the care of the patient.: Yes I have reviewed all pertinent clinical information, including history, physical exam and plan: Yes Notes (Text): This is an addendum to the GI progress report dictated by GI fellow. The patient was seen and evaluated here earlier. Patient did receive 2 units of packed RBC for drop in blood count. Patient did have episodes of bleeding per rectum. Patient had a flexible sigmoidoscopy area which showed a significant deformity of the rectum and rectosigmoid area. The scope could not be advanced beyond 12 cm. There was extensive subepithelial/infiltrative lesions noticed with a superficial erosions compressing on the rectal lumen. Biopsies were taken and they reported only as necrotic tissue. Patient does have advanced cervical CA. Will follow up MRI Discussed with the nursing staff patient need to be on a regular MiraLAX to avoid constipation and impaction of stool at the angulated deformed rectum and rectosigmoid area Discussed with the Dr. Evaristo Fernandez 06/22/18 16:32
[2018-06-22] MEDS ORDERED: POLYETHYLENE GLYCOL 3350 17 GM/Dose PACKET PO ONE (16:00)
--- NOTE | 2018-06-22 18:46 | PN ---
DATE: 06/22/2018 This is [facility] visit on the medical floor. For Dr. Ford. SUBJECTIVE: The patient is a 67-year-old female. She is sitting up in bed reporting recent bowel movement earlier today with blood still noted mixed with stool. She is status post a pelvic MRI done earlier today and was transfused two units of packed red blood cells yesterday for active bleeding with hemoglobin of 7.9; today the hemoglobin is 9.4 and the patient appears more comfortable with her narcotic analgesics being given for her severe pain with good effect. 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 Bruce Black. PHYSICAL EXAMINATION: VITAL SIGNS: Temperature 97, pulse 78, respirations 20, blood pressure 130/75, pulse oximetry 94%. HEENT: Poor dentition. NECK: Supple. HEART: Regular rate. LUNGS: Clear. ABDOMEN: Soft and nontender with bilateral nephrostomy tubes noted. EXTREMITIES: No edema. SKIN: Warm and dry. NEUROLOGIC: Awake and alert. LABORATORY DATA: The patient's labs were done. White blood cell count of 3.9, hemoglobin 9.4 today after transfusion of two units of packed cells for hemoglobin 7.9 yesterday, hematocrit of 30.2, platelet count of 270,000, and a metabolic panel showing a creatinine of 1.4 with normal BUN of 16. MRI of the pelvis was done. It has not been read yet with they did some biopsy reported as fragments of chronic inflammatory material noted despite the appearance of neoplastic changes as per Dr. Sumner. ASSESSMENT: The assessment for this patient is that of symptomatic anemia with stercoral ulcer, gastrointestinal bleed, status post transfusion, stage IV cancer of the cervix status post chemotherapy radiation, coronary artery disease status post stenting, chronic kidney disease with nephrostomy tubes, radiation cystitis, depression. PLAN: The plan for this patient after conversation with the doctor is to continue present medical regimen with further recommendations as per results of testing done today with pelvic MRI with suspicion of malignancy in this area despite negative biopsy. We will monitor clinically and with labs. This is a complex patient with a comprehensive medically necessary and appropriate visit carried out in excess of 40 minutes with the patient's questions answered to her satisfaction with Dr. Sumner who also evaluated the patient with me at this visit. Evaristo Saldivar MD
[2018-06-22] MEDS: Dextrose 5%/0.45% NS 1,000 ML IV SCH (22:25)
[2018-06-23] MEDS ORDERED: DiphenhydrAMINE 50 mg/ml Inj IVP STA (01:22)
[2018-06-23] MEDS: Cefepime 1gm in NS 100ml 1 GM/100 ML BAG IVPB SCH (10:45)
[2018-06-23] MEDS: Pantoprazole 40 mg EC Tab PO SCH (10:46)
[2018-06-23] MEDS: TRANEXAMIC ACID 650 MG PO SCH ×2 (10:48→17:52)
[2018-06-23] MEDS: HYDROmorphone 2 mg/ml ISec IVP PRN ×4 (10:48→21:37)
[2018-06-23] MEDS: POLYETHYLENE GLYCOL 3350 17 GM/Dose PACKET PO SCH (10:48)
[2018-06-23] MEDS: Sucralfate 1 gm/10 ml Oral Susp UD PO SCH ×2 (11:05→17:52)
[2018-06-23] MEDS: Dextrose 5%/0.45% NS 1,000 ML IV SCH ×2 (11:05→14:11)
[2018-06-23] MEDS: TERCONAZOLE 80 MG VG SCH (11:07)
[2018-06-23 11:37] LABS: BASO # 0.04 K/mm3 (0.0-2.0); BASO % 0.7 % (0.0-3.0); EOS # 0.4 (0.0-0.7); EOS % 6.4 % (1.5-5.0); HEMOGLOBIN 11.1 g/dL (12.0-16.0); LYMPH # 0.7 (1.2-3.4); LYMPH % 13.1 % (22.0-35.0); MEAN CELL VOLUME 92.2 fl (80.0-105.0); MEAN CORPUSCULAR HEMOGLOBIN 28.7 pg (25.0-35.0); MEAN CORPUSCULAR HGB CONC 31.1 g/dl (31.0-37.0); MONO # 0.4 (0.1-0.6); MONO % 8.1 % (1.0-6.0); RBC 3.87 10^6/uL (3.5-6.1); RED CELL DISTRIBUTION WIDTH 17.8 % (11.5-14.5); WHITE BLOOD COUNT 5.4 10^3/uL (4.5-11.0)
[2018-06-23 11:45] LABS: ALB/GLOB RATIO 0.7 (1.1-1.8); ALBUMIN 2.7 g/dL (3.0-4.8); CALCIUM 8.9 mg/dL (8.4-10.5)
--- NOTE | 2018-06-23 15:06 | CP.PCM.PN ---
<Vivek Saul - Last Filed: 06/23/18 15:07> Subjective - Date & Time of Evaluation Date of Evaluation: 06/23/18 Time of Evaluation: 15:04 - Subjective Subjective: No complaints. Denies bleeding. Tolerating miralax, stool softeners and diet. Objective - Vital Signs/Intake and Output Vital Signs (last 24 hours): Temp Pulse Resp BP Pulse Ox 98.0 F 73 18 158/97 H 96 06/23/18 06:00 06/23/18 10:47 06/23/18 06:00 06/23/18 10:47 06/23/18 06:00 Intake and Output: 06/23/18 06/23/18 06:59 18:59 Intake Total 120 Output Total 400 Balance -280 - Medications Medications: Current Medications Alprazolam (Xanax) 0.25 mg PO BID PRN; Protocol PRN Reason: Anxiety Stop: 06/30/18 18:01 Aspirin (Ecotrin) 81 mg PO DAILY [facility] Last Admin: 06/23/18 10:46 Dose: 81 mg Docusate Sodium (Colace) 100 mg PO BID [facility] Last Admin: 06/23/18 10:46 Dose: 100 mg Hydromorphone HCl (Dilaudid) 2 mg IVP Q3H PRN PRN Reason: Pain, severe (8-10) Last Admin: 06/23/18 14:52 Dose: 2 mg Cefepime HCl (Maxipime 1gm) 1 gm in 100 mls @ 100 mls/hr IVPB DAILY [facility]; Protocol Last Admin: 06/23/18 10:45 Dose: 100 mls/hr Dextrose/Sodium Chloride (Dextrose 5%/0.45% Ns 1000 Ml) 1,000 mls @ 50 mls/hr IV .Q20H [facility] Last Admin: 06/23/18 14:11 Dose: 50 mls/hr Lidocaine/Prilocaine (Emla) 0 gm TOP TID PRN PRN Reason: Other Last Admin: 06/19/18 01:18 Dose: 1 appl Metoprolol Tartrate (Lopressor) 25 mg PO BRKDIN [facility] Last Admin: 06/23/18 10:47 Dose: 25 mg Montelukast Sodium (Singulair) 10 mg PO HS [facility] Last Admin: 06/22/18 21:21 Dose: 10 mg Non-Formulary Medication (Terconazole [Terconazole]) 80 mg VG DAILY [facility] Last Admin: 06/23/18 11:07 Dose: Not Given Tranexamic Acid [ Lysteda] 650 Mg Tab (Home Med) 2 tab PO BID [facility] Last Admin: 06/23/18 10:48 Dose: 2 tab Ondansetron HCl (Zofran Odt) 4 mg PO Q6H PRN PRN Reason: Nausea/Vomiting Pantoprazole Sodium (Protonix Ec Tab) 40 mg PO ACB [facility] Last Admin: 06/23/18 10:46 Dose: 40 mg Polyethylene Glycol (Miralax) 17 gm PO DAILY [facility] Last Admin: 06/23/18 10:48 Dose: 17 gm Sertraline HCl (Zoloft) 25 mg PO QAM [facility] Last Admin: 06/23/18 10:46 Dose: 25 mg Sucralfate (Carafate Oral Susp) 1 gm PO ACBD [facility] Last Admin: 06/23/18 11:05 Dose: 1 gm - Labs Labs: 06/23/18 11:20 06/23/18 11:20 PT 12.6 SECONDS (9.4-12.5) H 06/17/18 14:43 INR 1.14 06/17/18 14:43 APTT 37.2 Seconds (26.9-38.3) 06/17/18 14:43 - Constitutional Appears: Non-toxic, No Acute Distress - ENT Exam ENT Exam: Mucous Membranes Moist, Normal Exam - Respiratory Exam Respiratory Exam: Clear to Ausculation Bilateral, NORMAL BREATHING PATTERN - Cardiovascular Exam Cardiovascular Exam: REGULAR RHYTHM, +S1, +S2 - GI/Abdominal Exam GI & Abdominal Exam: Soft, Normal Bowel Sounds. absent: Tenderness - Neurological Exam Neurological Exam: Alert, Awake, Oriented x3 - Psychiatric Exam Psychiatric exam: Normal Affect, Normal Mood Assessment and Plan - Assessment and Plan (Free Text) Assessment: 67F w/PMH sig for cervical cancer s/p flex sig for recent rectal bleeding Plan: Flex/sig showed large likely extrinsic/subepithelial mass compressing rectum pathology shows necrotic inflammatory material, no cancer. FU MRI pelvis to better understand anatomic changes. Recommend bowel regimen to keep stool soft On heart healthy diet Hgb decreased- no accounts of bleeding per rectum Monitor for bleeding We will discuss further management with Dr. Iyengar. MELISSA Sumner <Harvey Sumner V - Last Filed: 06/23/18 23:33> Objective - Vital Signs/Intake and Output Vital Signs (last 24 hours): Temp Pulse Resp BP Pulse Ox 98.1 F 79 20 150/84 94 L 06/23/18 18:00 06/23/18 18:00 06/23/18 18:00 06/23/18 18:00 06/23/18 18:00 Intake and Output: 06/23/18 06/24/18 18:59 06:59 Intake Total 250 940 Balance 250 940 - Medications Medications: Current Medications Alprazolam (Xanax) 0.25 mg PO BID PRN; Protocol PRN Reason: Anxiety Stop: 06/30/18 18:01 Aspirin (Ecotrin) 81 mg PO DAILY [facility] Last Admin: 06/23/18 10:46 Dose: 81 mg Docusate Sodium (Colace) 100 mg PO BID [facility] Last Admin: 06/23/18 17:52 Dose: 100 mg Hydromorphone HCl (Dilaudid) 2 mg IVP Q3H PRN PRN Reason: Pain, severe (8-10) Last Admin: 06/23/18 21:37 Dose: 2 mg Cefepime HCl (Maxipime 1gm) 1 gm in 100 mls @ 100 mls/hr IVPB DAILY [facility]; Protocol Last Admin: 06/23/18 10:45 Dose: 100 mls/hr Dextrose/Sodium Chloride (Dextrose 5%/0.45% Ns 1000 Ml) 1,000 mls @ 50 mls/hr IV .Q20H [facility] Last Admin: 06/23/18 14:11 Dose: 50 mls/hr Lidocaine/Prilocaine (Emla) 0 gm TOP TID PRN PRN Reason: Other Last Admin: 06/19/18 01:18 Dose: 1 appl Metoprolol Tartrate (Lopressor) 25 mg PO BRKDIN [facility] Last Admin: 06/23/18 17:52 Dose: 25 mg Montelukast Sodium (Singulair) 10 mg PO HS [facility] Last Admin: 06/23/18 21:25 Dose: 10 mg Non-Formulary Medication (Terconazole [Terconazole]) 80 mg VG DAILY [facility] Last Admin: 03/17/19 11:07 Dose: Not Given Tranexamic Acid [ Lysteda] 650 Mg Tab (Home Med) 2 tab PO BID [facility] Last Admin: 06/23/18 17:52 Dose: 2 tab Ondansetron HCl (Zofran Odt) 4 mg PO Q6H PRN PRN Reason: Nausea/Vomiting Pantoprazole Sodium (Protonix Ec Tab) 40 mg PO ACB [facility] Last Admin: 06/23/18 10:46 Dose: 40 mg Polyethylene Glycol (Miralax) 17 gm PO DAILY [facility] Last Admin: 06/23/18 10:48 Dose: 17 gm Sertraline HCl (Zoloft) 25 mg PO QAM [facility] Last Admin: 06/23/18 10:46 Dose: 25 mg Sucralfate (Carafate Oral Susp) 1 gm PO ACBD [facility] Last Admin: 06/23/18 17:52 Dose: 1 gm - Labs Labs: 06/23/18 11:20 06/23/18 11:20 PT 12.6 SECONDS (9.4-12.5) H 06/17/18 14:43 INR 1.14 06/17/18 14:43 APTT 37.2 Seconds (26.9-38.3) 06/17/18 14:43 Attending/Attestation - Attestation I have personally seen and examined this patient.: Yes I have fully participated in the care of the patient.: Yes I have reviewed all pertinent clinical information, including history, physical exam and plan: Yes Notes (Text): This is an addendum to GI progress report dictated by the GI Fellow. The patient was seen and examined earlier. Medical records, lab studies, imagings were reviewed. Last 24 hours events reviewed. Agreed with the above treatment plan as outlined in GI Fellow 's notes with the addition of the following Patient did report a few episodes of small amount of blood Pathology report was reviewed Awaiting for official MRI report PET scan done in March 2018 was reviewed no increased pelvic activity was noticed We will discuss with oncologist regarding further workup 06/23/18 23:31
--- NOTE | 2018-06-23 17:41 | MRI ---
Date of service: 06/22/2018 PROCEDURE: MRI pelvis without contrast HISTORY: abdominal pain COMPARISON: None available. TECHNIQUE: Multiplanar, multi sequence MR images of the pelvis were obtained. No intravenous gadolinium contrast was administered. 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 These are best seen on sagittal images. 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 There also appears to be dehiscence of the posterior bladder wall at the level of the vagina also representing vesico vaginal fistula. High-signal fluid is seen in the central portion of the conglomerate fistula. There also appear to be a number of small low signal blood clots or calculi within the vagina and posterior to the bladder. Fistula between the distal rectosigmoid region and vagina is wide-mouth on axial image 19 series 14. There is a small amount of high-signal fluid seen in the endometrial canal. Bladder is decompressed limiting evaluation. The some mild areas of soft tissue are seen surrounding the areas of fistula. It is uncertain as to whether this is related to infectious, neoplastic, or post treatment. There may also be an additional area of fistula with the traversing sigmoid colon with the larger area mention previously. This is seen on sagittal image 24 series 8. No significant ascites is seen. There are a few tiny high signal cystic areas noted in the right adnexa. Moderate degenerative disc disease is seen in the lower lumbar spine. There is mild presacral soft tissue identified. No fracture is seen. Marrow signal is normal although there is some probable mild sclerosis adjacent to the sacroiliac joints, nonspecific. A number of bilateral inguinal lymph nodes are appreciated. Remainder of the bowel is otherwise unremarkable. Urethra is within normal limits. OVARIES/ ADNEXA: No appreciable right or left ovarian mass is identified. There may be a few very tiny residual follicles in the right ovary. BOWEL: See above. LYMPH NODES: See above. BLADDER: See above. FREE FLUID: See above. PELVIC BONES: See above. OTHER FINDINGS: None. IMPRESSION: Unremarkable non-contrast enhanced MRI of the pelvis.
--- NOTE | 2018-06-23 18:42 | PN ---
DATE: 06/23/2018 This is [facility] visit on the medical floor. For Dr. Ford. SUBJECTIVE: The patient is a 67-year-old female seen sitting up with pelvic MRI still pending status post transfusion of packed red blood cells with good effect. The patient is known to suffer from stage IV cancer with cervical metastasis to the mediastinum with stercoral ulceration in the anal canal with bilateral nephrostomy tubes recently placed. With this, she is in no acute distress with further recommendations as per application packaging consultant's recommendations. PHYSICAL EXAMINATION: VITAL SIGNS: Temperature 98, pulse 73, respirations 18, blood pressure 158/97, and pulse ox 96%. HEENT: Poor dentition. NECK: Supple. HEART: Regular rate. LUNGS: Clear. ABDOMEN: Soft with bilateral nephrostomy tubes. EXTREMITIES: No edema. SKIN: Warm and dry. NEUROLOGIC: Awake and alert. LABORATORY DATA: The patient's labs were done; white blood cell count of 5.4, hemoglobin 11.1, hematocrit of 35.7, platelet count of 303,000. Metabolic panel is within normal range. Total protein of 2.7, creatinine of 1.4. The patient has a pelvic MRI that was done, the results are not available at this time. ASSESSMENT: The assessment for this patient is that of symptomatic anemia status post transfusion, rectal bleed, stage IV cervical cancer with metastases with abnormal sigmoidoscopy suspicious for neoplastic change, however, with negative tissue biopsy, anxiety/depression, history of chemotherapy radiation, atherosclerotic cardiovascular disease with stenting, chronic kidney disease with nephrostomy tubes, radiation cystitis, gastroesophageal reflux disease. PLAN: The plan for this patient after conversation with Dr. Ford and Dr. Sumner is to await results of testing with further recommendations as indicated. Her hemoglobin was repeated in the morning as this was possibly not reflective as her hemoglobin is 9.4 status post transfusion yesterday for hemoglobin of 7.9 and 11.9, the values today and is questioned. We will also continue the patient's analgesics for her severe intractable pain of cancer with Xanax also p.r.n. for her anxiety. This is a complex patient with a comprehensive medically necessary and appropriate visit carried out in excess of 20 minutes with the patient's questions answered to her satisfaction. Evaristo MD [facility] # [id number]
[2018-06-23] MEDS ORDERED: DiphenhydrAMINE 50 mg/ml Inj IVP PRN (22:00)
[2018-06-24] MEDS: HYDROmorphone 2 mg/ml ISec IVP PRN ×6 (00:40→16:28)
[2018-06-24 06:58] LABS: BASO # 0.03 K/mm3 (0.0-2.0); BASO % 0.5 % (0.0-3.0); EOS # 0.4 (0.0-0.7); HEMOGLOBIN 11.2 g/dL (12.0-16.0); LYMPH # 0.6 (1.2-3.4); LYMPH % 9.6 % (22.0-35.0); MEAN CELL VOLUME 93.4 fl (80.0-105.0); MEAN CORPUSCULAR HEMOGLOBIN 28.6 pg (25.0-35.0); MEAN CORPUSCULAR HGB CONC 30.6 g/dl (31.0-37.0); MEAN PLATELET VOLUME 9.1 fl (7.0-11.0); MONO # 0.7 (0.1-0.6); MONO % 10.7 % (1.0-6.0); RBC 3.92 10^6/uL (3.5-6.1); RED CELL DISTRIBUTION WIDTH 17.6 % (11.5-14.5); WHITE BLOOD COUNT 6.4 10^3/uL (4.5-11.0)
[2018-06-24 07:28] LABS: ALB/GLOB RATIO 0.8 (1.1-1.8); ALBUMIN 2.8 g/dL (3.0-4.8); CALCIUM 8.8 mg/dL (8.4-10.5)
[2018-06-24] MEDS ORDERED: Potassium Chloride 20 mEq ER Tab PO ONE (07:54)
[2018-06-24 08:22] VITALS: BP 139/80; PULSE 77; RESP 18; TEMP 97.8; O2SAT 96
--- NOTE | 2018-06-24 08:33 | CP.PCM.PN ---
<Topher Amato - Last Filed: 06/24/18 17:00> Subjective - Date & Time of Evaluation Date of Evaluation: 06/24/18 Time of Evaluation: 08:33 - Subjective Subjective: Topher Amato PGY2 GI Progress Note for Dr. Sumner Patient was seen and examined at bedside. Patient had a soft stools yesterday that were somewhat formed. She states that her abdomen is tender. Otherwise, she denies fevers/chills, nausea/vomiting. Objective - Vital Signs/Intake and Output Vital Signs (last 24 hours): Temp Pulse Resp BP Pulse Ox 97.8 F 77 18 139/80 96 06/24/18 06:00 06/24/18 06:00 06/24/18 06:00 06/24/18 06:00 06/24/18 06:00 Intake and Output: 06/24/18 06/24/18 06:59 18:59 Intake Total 1060 Output Total 325 Balance 735 - Medications Medications: Current Medications Alprazolam (Xanax) 0.25 mg PO BID PRN; Protocol PRN Reason: Anxiety Stop: 06/30/18 18:01 Aspirin (Ecotrin) 81 mg PO DAILY [facility] Last Admin: 06/23/18 10:46 Dose: 81 mg Docusate Sodium (Colace) 100 mg PO BID [facility] Last Admin: 06/23/18 17:52 Dose: 100 mg Hydromorphone HCl (Dilaudid) 2 mg IVP Q3H PRN PRN Reason: Pain, severe (8-10) Last Admin: 06/24/18 06:32 Dose: 2 mg Cefepime HCl (Maxipime 1gm) 1 gm in 100 mls @ 100 mls/hr IVPB DAILY [facility]; Protocol Last Admin: 06/23/18 10:45 Dose: 100 mls/hr Dextrose/Sodium Chloride (Dextrose 5%/0.45% Ns 1000 Ml) 1,000 mls @ 50 mls/hr IV .Q20H [facility] Last Admin: 06/23/18 14:11 Dose: 50 mls/hr Lidocaine/Prilocaine (Emla) 0 gm TOP TID PRN PRN Reason: Other Last Admin: 06/19/18 01:18 Dose: 1 appl Metoprolol Tartrate (Lopressor) 25 mg PO BRKDIN [facility] Last Admin: 06/23/18 17:52 Dose: 25 mg Montelukast Sodium (Singulair) 10 mg PO HS [facility] Last Admin: 06/23/18 21:25 Dose: 10 mg Non-Formulary Medication (Terconazole [Terconazole]) 80 mg VG DAILY [facility] Last Admin: 06/23/18 11:07 Dose: Not Given Tranexamic Acid [ Lysteda] 650 Mg Tab (Home Med) 2 tab PO BID [facility] Last Admin: 06/23/18 17:52 Dose: 2 tab Ondansetron HCl (Zofran Odt) 4 mg PO Q6H PRN PRN Reason: Nausea/Vomiting Pantoprazole Sodium (Protonix Ec Tab) 40 mg PO ACB [facility] Last Admin: 06/23/18 10:46 Dose: 40 mg Polyethylene Glycol (Miralax) 17 gm PO DAILY [facility] Last Admin: 06/23/18 10:48 Dose: 17 gm Sertraline HCl (Zoloft) 25 mg PO QAM [facility] Last Admin: 06/23/18 10:46 Dose: 25 mg Sucralfate (Carafate Oral Susp) 1 gm PO ACBD [facility] Last Admin: 06/23/18 17:52 Dose: 1 gm - Labs Labs: 06/24/18 06:20 06/24/18 06:20 PT 12.6 SECONDS (9.4-12.5) H 06/17/18 14:43 INR 1.14 06/17/18 14:43 APTT 37.2 Seconds (26.9-38.3) 06/17/18 14:43 - Constitutional Appears: Well, Non-toxic, No Acute Distress - Head Exam Head Exam: ATRAUMATIC, NORMAL INSPECTION - Eye Exam Eye Exam: EOMI, Normal appearance, PERRL - ENT Exam ENT Exam: Mucous Membranes Moist, Normal Exam - Neck Exam Neck Exam: Full ROM, Normal Inspection - Respiratory Exam Respiratory Exam: NORMAL BREATHING PATTERN. absent: Respiratory Distress - Cardiovascular Exam Cardiovascular Exam: RRR, +S1, +S2 - GI/Abdominal Exam GI & Abdominal Exam: Soft, Normal Bowel Sounds. absent: Tenderness - Exam Additional comments: b/l nephrostomy tubes - Extremities Exam Extremities Exam: Full ROM. absent: Pedal Edema - Neurological Exam Neurological Exam: Alert, Awake - Skin Skin Exam: Normal Color, Warm Assessment and Plan - Assessment and Plan (Free Text) Assessment: 67 year old Female with a PMH of cervical cancer s/p flex sig for recent rectal bleeding showing large likely extrinsic/subepithelial mass severely compressing rectum; pathology shows necrotic inflammatory material, no cancer. MRI showing 2 fistulas (colovaginal, vesicovaginal). Plan: The patient states that she does not want any surgical intervention Recommend bowel regimen to keep stool soft cont heart healthy low residual diet Monitor for bleeding Case was discussed with attending, Dr. Sumner <Harvey Sumner V - Last Filed: 06/24/18 19:52> Objective - Vital Signs/Intake and Output Vital Signs (last 24 hours): Temp Pulse Resp BP Pulse Ox 97.8 F 77 18 139/80 96 06/24/18 06:00 06/24/18 08:35 06/24/18 06:00 06/24/18 08:35 06/24/18 06:00 - Labs Labs: 06/24/18 06:20 06/24/18 06:20 PT 12.6 SECONDS (9.4-12.5) H 06/17/18 14:43 INR 1.14 06/17/18 14:43 APTT 37.2 Seconds (26.9-38.3) 06/17/18 14:43 Attending/Attestation - Attestation I have personally seen and examined this patient.: Yes I have fully participated in the care of the patient.: Yes I have reviewed all pertinent clinical information, including history, physical exam and plan: Yes Notes (Text): This patient was seen and evaluated here earlier. This is an addendum to the GI progress note dictated by the medical dir. MRI scan was reviewed. Discussed with Dr. Ford. Patient refused further evaluation of fistula. Pathology was reviewed. Last PET scan findings were discussed with the Dr. Ford. Recommend low fiber diet with the MiraLAX on a regular basis to avoid constipation. Intermittent episodes of bleeding needs close follow-up of the hemoglobin and transfuse as needed Thank you very much for allowing us to participate in the care of the patient 06/24/18 19:50
[2018-06-24] MEDS: Sucralfate 1 gm/10 ml Oral Susp UD PO SCH (08:34)
[2018-06-24] MEDS: Pantoprazole 40 mg EC Tab PO SCH (08:35)
[2018-06-24] MEDS: Cefepime 1gm in NS 100ml 1 GM/100 ML BAG IVPB SCH (09:58)
[2018-06-24] MEDS: POLYETHYLENE GLYCOL 3350 17 GM/Dose PACKET PO SCH (09:58)
[2018-06-24] MEDS: TRANEXAMIC ACID 650 MG PO SCH (09:59)
[2018-06-24] MEDS: TERCONAZOLE 80 MG VG SCH (09:59)
[2018-06-24] MEDS: Dextrose 5%/0.45% NS 1,000 ML IV SCH (10:01)
--- NOTE | 2018-06-24 11:01 | CP.PCM.PN ---
Subjective - Date & Time of Evaluation Date of Evaluation: 06/24/18 Time of Evaluation: 08:15 - Subjective Subjective: Emmanuel Moura PGY2 - Progress Note for Dr. Ford Patient seen and examined this AM. Patient noted to be sitting up in bed in no apparent distress. No acute events reported overnight. Patient denies further bleeding from her vaginal/rectal area. She has no complaints at the time of interview. She is updated on clinical course and potential for further testing/intervention. Patient indicates she does not want general surgery and is refusing further barium testing at this time. Objective - Vital Signs/Intake and Output Vital Signs (last 24 hours): Temp Pulse Resp BP Pulse Ox 97.8 F 77 18 139/80 96 06/24/18 06:00 06/24/18 08:35 06/24/18 06:00 06/24/18 08:35 06/24/18 06:00 Intake and Output: 06/24/18 06/24/18 06:59 18:59 Intake Total 1060 Output Total 325 Balance 735 - Medications Medications: Current Medications Alprazolam (Xanax) 0.25 mg PO BID PRN; Protocol PRN Reason: Anxiety Stop: 06/30/18 18:01 Aspirin (Ecotrin) 81 mg PO DAILY [facility] Last Admin: 06/24/18 09:57 Dose: 81 mg Docusate Sodium (Colace) 100 mg PO BID [facility] Last Admin: 06/24/18 09:56 Dose: 100 mg Hydromorphone HCl (Dilaudid) 2 mg IVP Q3H PRN PRN Reason: Pain, severe (8-10) Last Admin: 06/24/18 10:09 Dose: 2 mg Cefepime HCl (Maxipime 1gm) 1 gm in 100 mls @ 100 mls/hr IVPB DAILY [facility]; Protocol Last Admin: 06/24/18 09:58 Dose: 100 mls/hr Dextrose/Sodium Chloride (Dextrose 5%/0.45% Ns 1000 Ml) 1,000 mls @ 50 mls/hr IV .Q20H [facility] Last Admin: 06/24/18 10:01 Dose: 50 mls/hr Lidocaine/Prilocaine (Emla) 0 gm TOP TID PRN PRN Reason: Other Last Admin: 06/19/18 01:18 Dose: 1 appl Metoprolol Tartrate (Lopressor) 25 mg PO BRKDIN [facility] Last Admin: 06/24/18 08:35 Dose: 25 mg Montelukast Sodium (Singulair) 10 mg PO HS [facility] Last Admin: 06/23/18 21:25 Dose: 10 mg Non-Formulary Medication (Terconazole [Terconazole]) 80 mg VG DAILY [facility] Last Admin: 06/24/18 09:59 Dose: Not Given Tranexamic Acid [ Lysteda] 650 Mg Tab (Home Med) 2 tab PO BID [facility] Last Admin: 06/24/18 09:59 Dose: 2 tab Ondansetron HCl (Zofran Odt) 4 mg PO Q6H PRN PRN Reason: Nausea/Vomiting Pantoprazole Sodium (Protonix Ec Tab) 40 mg PO ACB [facility] Last Admin: 06/24/18 08:35 Dose: 40 mg Polyethylene Glycol (Miralax) 17 gm PO DAILY [facility] Last Admin: 06/24/18 09:58 Dose: 17 gm Sertraline HCl (Zoloft) 25 mg PO QAM [facility] Last Admin: 06/24/18 10:00 Dose: 25 mg Sucralfate (Carafate Oral Susp) 1 gm PO ACBD [facility] Last Admin: 06/24/18 08:34 Dose: 1 gm - Labs Labs: 06/24/18 06:20 06/24/18 06:20 PT 12.6 SECONDS (9.4-12.5) H 06/17/18 14:43 INR 1.14 06/17/18 14:43 APTT 37.2 Seconds (26.9-38.3) 06/17/18 14:43 - Head Exam Head Exam: ATRAUMATIC, NORMAL INSPECTION, NORMOCEPHALIC - Eye Exam Eye Exam: EOMI, PERRL - ENT Exam ENT Exam: Mucous Membranes Moist - Neck Exam Neck Exam: Full ROM - Respiratory Exam Respiratory Exam: Clear to Ausculation Bilateral, NORMAL BREATHING PATTERN - Cardiovascular Exam Cardiovascular Exam: REGULAR RHYTHM, +S1, +S2 - GI/Abdominal Exam GI & Abdominal Exam: Soft, Normal Bowel Sounds - Extremities Exam Extremities Exam: Full ROM. absent: Pedal Edema - Neurological Exam Neurological Exam: Alert, Awake, Oriented x3 Neuro motor strength exam: Left Upper Extremity: 5, Right Upper Extremity: 5, Left Lower Extremity: 5, Right Lower Extremity: 5 - Psychiatric Exam Psychiatric exam: Normal Affect, Normal Mood - Skin Skin Exam: Dry, Warm Assessment and Plan - Assessment and Plan (Free Text) Assessment: 67 yo F with PMH of stage 4 cervical cancer s/p chemoradiation, CAD s/p stenting(x4), CKD, h/o nephrostomy tubes, radiation cystitis, psoriasis, depression, and stercoral rectal ulcer is admitted to [facility] for concern for GI bleeding. Patient underwent colonoscopy 06/19 with GI, biopsy which showed no evidence of cancerous cells. Patient with pelvic MRI showing multiple fistulas without clear evidence of tracking. Patient to potentially undergo further testing for evaluation of fistulas. 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 barium methylene blue testing - Patient refusing surgical intervention at this time Bright red blood per rectum - resolved - no further reports of bright red blood per rectum, investigation ongoing -Abdominal CT on admission: possible colovesicular fistula involving a segment of distal sigmoid colon abutting the posterior margin of partially fillled urinary bladder, rectal wall thickening, -GI consulted and following, - General Surgrey consulted and following - Continue to monitor CBC, H/H stable Anemia - Hgb today shows to be 11.2 - previous iron studies indicate anemia of chronic disease - Transfuse patient with goal of Hgb >8 in setting of cardiac history UTI - Urine clx with E. Coli, Urine showing pos leuk est and nitrates - Patient asymptomatic, no leukocytosis - Cefepime Depression -continue home med zoloft 25mg po qd CKD -Cr appears to be at baseline -continue to monitor -with bilateral nephrostomy tubesm recent replacement of right with IR CAD status post stent (x4) -continue current medications -Last known LVEF 62% Palliative care consult placed for goals of care DVT/GI PPX Patient case and plan discussed with attending, Dr. Ford
--- NOTE | 2018-06-24 12:34 | CP.PCM.PCO ---
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 Plan: - Discussed case and surgical treatment options with the patient on numerous occasions at length. Discussed with patient again today and patient still adamantly refusing any surgical interventions. - Please contact surgical team if patient changes her mind and would like to undergo surgical treatment Shaka Byers PGY2 surgery
--- NOTE | 2018-06-24 12:39 | CP.PCM.PCO ---
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 Discussed with patient again today and patient still adamantly refusing any surgical interventions. - Please contact surgical team if patient changes her mind and would like to undergo surgical treatment Shaka Byers PGY2 surgery
--- NOTE | 2018-06-24 14:58 | CP.PCM.PCO ---
Physician Communication Note - Physician Communication Note Physician Communication Note: no further bleeding+ fistulas,surg.rec.diverting colostomy,pt.refuses
--- NOTE | 2018-06-24 16:19 | CP.PCM.DIS ---
Provider - Provider Date of Admission: 06/17/18 16:47 Attending physician: Evaristo Saldivar MD Consults: 06/17/18 17:56 Physician Consult Stat Comment: Consulting Provider: Tony Greene Consulting Physician: Tony Greene Reason for Consult: colovesicular fistula 06/17/18 17:57 Gastroenterology Consult Routine Comment: Consulting Provider: Harvey Sumner V Consulting Physician: Harvey Sumner V Reason for Consult: colovesicular fistula. rectal bleeding 06/17/18 22:41 Social Work Referral Routine Comment: SANTO SCORE 10 Physician Instructions: Reason For Exam: PROTOCOL 06/17/18 22:46 Transition In Care/Readmission Reduction Routine Comment: Physician Instructions: Reason For Exam: PROTOCOL 06/20/18 11:49 Consult [Physician Consult] Routine Comment: Consulting Provider: Bruce Black Consulting Physician: Bruce Black Reason for Consult: leaking right nephrostomy tube 06/24/18 10:54 Palliative Care Consult Routine Comment: Consulting Provider: Flor Galvan Physician Instructions: Reason For Exam: goals of care Time Spent in preparation of Discharge (in minutes): 45 Hospital Course - Lab Results Lab Results: Micro Results 06/17/18 19:20 Blood Blood Culture - Final NO GROWTH AFTER 5 DAYS 06/17/18 19:20 Blood Gram Stain - Final TEST NOT PERFORMED 06/17/18 19:00 Blood Blood Culture - Final NO GROWTH AFTER 5 DAYS 06/17/18 19:00 Blood Gram Stain - Final TEST NOT PERFORMED 06/17/18 14:43 Urine Random Urine Culture - Final Escherichia Coli Most Recent Lab Values WBC 6.4 10^3/uL (4.5-11.0) 06/24/18 06:20 RBC 3.92 10^6/uL (3.5-6.1) 06/24/18 06:20 Hgb 11.2 g/dL (12.0-16.0) L 06/24/18 06:20 Hct 36.6 % (36.0-48.0) 06/24/18 06:20 MCV 93.4 fl (80.0-105.0) 06/24/18 06:20 MCH 28.6 pg (25.0-35.0) 06/24/18 06:20 MCHC 30.6 g/dl (31.0-37.0) L 06/24/18 06:20 RDW 17.6 % (11.5-14.5) H 06/24/18 06:20 Plt Count 286 10^3/uL (120.0-450.0) 06/24/18 06:20 MPV 9.1 fl (7.0-11.0) 06/24/18 06:20 Neut % (Auto) 73.2 % (50.0-68.0) H 06/24/18 06:20 Lymph % (Auto) 9.6 % (22.0-35.0) L 06/24/18 06:20 [place] % (Auto) 10.7 % (1.0-6.0) H 06/24/18 06:20 Eos % (Auto) 6.0 % (1.5-5.0) H 06/24/18 06:20 Baso % (Auto) 0.5 % (0.0-3.0) 06/24/18 06:20 Lymph # (Auto) 0.6 (1.2-3.4) L 06/24/18 06:20 [place] # (Auto) 0.7 (0.1-0.6) H 06/24/18 06:20 Eos # (Auto) 0.4 (0.0-0.7) 06/24/18 06:20 Baso # (Auto) 0.03 K/mm3 (0.0-2.0) 06/24/18 06:20 Absolute Neuts (auto) 4.66 (1.4-6.5) 06/24/18 06:20 PT 12.6 SECONDS (9.4-12.5) H 06/17/18 14:43 INR 1.14 06/17/18 14:43 APTT 37.2 Seconds (26.9-38.3) 06/17/18 14:43 Sodium 141 mmol/L (132-148) 06/24/18 06:20 Potassium 3.5 mmol/L (3.6-5.0) L 06/24/18 06:20 Chloride 102 mmol/L (98-107) 06/24/18 06:20 Carbon Dioxide 30 mmol/L (21-33) 06/24/18 06:20 Anion Gap 12 (10-20) 06/24/18 06:20 BUN 15 mg/dL (7-21) 06/24/18 06:20 Creatinine 1.4 mg/dl (0.7-1.2) H 06/24/18 06:20 Est GFR ( Amer) 45 06/24/18 06:20 Est GFR (Non-Af Amer) 38 06/24/18 06:20 Random Glucose 76 mg/dL (70-110) 06/24/18 06:20 Calcium 8.8 mg/dL (8.4-10.5) 06/24/18 06:20 Total Bilirubin 0.3 mg/dL (0.2-1.3) 06/24/18 06:20 AST 32 U/L (14-36) 06/24/18 06:20 ALT 9 U/L (7-56) 06/24/18 06:20 Alkaline Phosphatase 100 U/L (38-126) 06/24/18 06:20 Total Protein 6.5 g/dL (5.8-8.3) 06/24/18 06:20 Albumin 2.8 g/dL (3.0-4.8) L 06/24/18 06:20 Globulin 3.7 gm/dL 06/24/18 06:20 Albumin/Globulin Ratio 0.8 (1.1-1.8) L 06/24/18 06:20 Urine Color Yellow (YELLOW) 06/17/18 14:43 Urine Appearance Cloudy (CLEAR) 06/17/18 14:43 Urine pH 6.0 (4.7-8.0) 06/17/18 14:43 Ur Specific [place] 1.025 (1.005-1.035) 06/17/18 14:43 Urine Protein 30 mg/dL (<30 mg/dL) H 06/17/18 14:43 Urine Glucose (UA) Negative mg/dL (NEGATIVE) 06/17/18 14:43 Urine Ketones Negative mg/dL (NEGATIVE) 06/17/18 14:43 Urine Blood Small (NEGATIVE) H 06/17/18 14:43 Urine Nitrate Positive (NEGATIVE) H 06/17/18 14:43 Urine Bilirubin Negative (NEGATIVE) 06/17/18 14:43 Urine Urobilinogen 0.2 E.U./dL (<1 E.U./dL) 06/17/18 14:43 Ur Leukocyte Esterase Moderate Jing/uL (NEGATIVE) H 06/17/18 14:43 Urine RBC 2 - 5 /hpf (0-2) H 06/17/18 14:43 Urine WBC Tntc /hpf (0-6) H 06/17/18 14:43 Ur Epithelial Cells 4 - 5 /hpf (0-5) 06/17/18 14:43 Urine Bacteria Many /hpf (NONE) 06/17/18 14:43 Blood Type O POSITIVE 06/21/18 11:45 Antibody Screen Negative 06/21/18 11:45 Crossmatch See Detail 06/21/18 11:45 BBK History Checked Patient has bt 06/21/18 11:45 - Hospital Course Hospital Course: Hospital Course Patient admitted for bright red blood per rectum. Patient evaluated by GI and Ge neral surgery services. GI indicated patient needed further evaluation via colonoscopy with potential for biopsy for bleeding etiology. Patient underwent bowel prep and had limited flex sigmoidoscopy with rectal biopsy. The flex- sigmoidoscopy did not show signs of active bleeding and rectal biopsy showed evidence of necrotic tissue with absence of glandular epithelium Patient underwent Pelvic MRI showing multiple fistulas including colo-vaginal, vesico- vaginal, distal rectosigmoid and vagina fistula, bilateral inguinal lymph node enlargement. General surgery was consulted and evaluated the patient to need further investigation of potential fistulas with methylene blue vs. gastrogaffin barium enema. Patient indicated to General surgery team that she would refuse surgical intervention if required. During hospital stay patient right nephrostomy tube became displaced. IR with Dr. Bruce Black was consulted and right nephrostomy tube was re-inserted and noted to be patent and draining appropriately. Discharge Planning Extensive conversation occurred with patient regarding discharge planning and further recommendations/possible interventions in regards to her current management plan. Within that conversation patient was instructed to begin and continue with a low residue diet with supplemental miralax. Patient was explained the significance of the new diet in the setting of her pelvic MRI findings and the concern for fistulas of the colo-vaginal, vesico vaginal, distal recosigmoid and vagina origins. Patient was explained the potential risks and benefits for further investigation of the fistulas with proposed gastograffin enema study as well as barium enema. These were proposed due to the limitations of the pelvic MRI and the difficulty to ascertain with certainty the significance of the fistula. Patient was in understanding and voiced her concerns and requested to speak to her family members and come to a decision regarding further testing. She was adamant that she would refuse and proposed surgical intervention in the future. It was explained to her the possibility of developing infection, peritonitis, and other disease process without intervention in fistulas were patent and future studies indicated need for intervention. Patient stated she would refuse colectomy and diversion of bowel if needed. Patient was discharged on PO Dil audid for control of her pain. Patient was educated on siginficance of the pain medication and appropriate usage of the medication including but not limited to the dosing, limitations, and frequency. Patient was in understanding. Conversations were conducted regarding potential for future chemotherapy and Dr. Ford was concerned for future chemotherapy and potential for side effects in the setting of Hospice as potential management option. Dr. Ford voiced his concern for infection or other complications to follow further chemotherapy regiments. Patient was in understanding. Patient to follow up with Dr. Ford outpatient upon discharge. Discharge Exam - Head Exam Head Exam: ATRAUMATIC, NORMAL INSPECTION, NORMOCEPHALIC - Eye Exam Eye Exam: EOMI, PERRL - ENT Exam ENT Exam: Mucous Membranes Moist - Neck Exam Neck exam: Full Rom - Cardiovascular Exam Cardiovascular Exam: REGULAR RHYTHM, +S1, +S2 - GI/Abdominal Exam GI & Abdominal Exam: Normal Bowel Sounds. absent: Firm, Guarding - Neurological Exam Neurological exam: Alert, Normal Gait - Psychiatric Exam Psychiatric exam: Normal Affect, Normal Mood - Skin Skin Exam: Dry, Warm Discharge Plan - Follow Up Plan Condition: FAIR Disposition: HOME/ ROUTINE Instructions: Anal Abscess and Fistula, Anemia Caused by Low Iron, Adult (DC) Additional Instructions: Follow up with your PMD within 7-10 days upon discharge Follow up with Dr. Ford in his office within 1-2 weeks upon discharge Follow a low residue diet with supplemental Miralax daily Take medications as prescribed to you Patient to be given written prescription for dilaudid PO 4mg PO Q3H Please go to the nearest emergency department if you have sudden and significant loss of blood yielding tachycardia, shortness of breath, dizziness
== END 2018-06-24 18:27 | disposition home health service (06) | DRG 378 ==
LOC: ED 12:18 → ERH 16:47 → 3RNO 19:52
PROVIDERS: ADMIT Family Medicine; ATTEND Family Medicine
PROC: 0DBP8ZX Excision of Rectum, Via Natural or Artificial Opening Endoscopic, Diagnostic (ICD-10-PCS; principal; 2018-06-19 14:00)
PROC: 0T25X0Z Change Drainage Device in Kidney, External Approach (ICD-10-PCS; 2018-06-21)
PROC: 30233N1 Transfusion of Nonautologous Red Blood Cells into Peripheral Vein, Percutaneous Approach (ICD-10-PCS; 2018-06-21)
DX: K62.5 Hemorrhage of anus and rectum (principal); K62.6 Ulcer of anus and rectum; N39.0 Urinary tract infection, site not specified; C78.1 Secondary malignant neoplasm of mediastinum; C53.9 Malignant neoplasm of cervix uteri, unspecified; B96.20 Unspecified Escherichia coli [E. coli] as the cause of diseases classified elsewhere; K62.4 Stenosis of anus and rectum; K55.20 Angiodysplasia of colon without hemorrhage; K64.9 Unspecified hemorrhoids; I25.10 Atherosclerotic heart disease of native coronary artery without angina pectoris; D63.8 Anemia in other chronic diseases classified elsewhere; F32.9 Major depressive disorder, single episode, unspecified; N18.9 Chronic kidney disease, unspecified; G89.3 Neoplasm related pain (acute) (chronic); T83.022A Displacement of nephrostomy catheter, initial encounter; Y83.8 Other surgical procedures as the cause of abnormal reaction of the patient, or of later complication, without mention of misadventure at the time of the procedure; L40.9 Psoriasis, unspecified; K21.9 Gastro-esophageal reflux disease without esophagitis; K22.70 Barrett's esophagus without dysplasia; R19.00 Intra-abdominal and pelvic swelling, mass and lump, unspecified site; Z92.3 Personal history of irradiation; Z92.21 Personal history of antineoplastic chemotherapy; Z95.5 Presence of coronary angioplasty implant and graft; Z87.891 Personal history of nicotine dependence

== ENCOUNTER 2018-06-26 18:16 | Outpatient (CLI) | payer MEDICARE, OTHER | END 2018-06-26 18:17 | disposition home or self-care (01) | LOC: OPLAB 18:16 ==

== ENCOUNTER 2018-06-27 09:02 | Inpatient (IN) | payer MEDICARE, OTHER ==
[2018-06-27 09:18] VITALS: BMI 19.8
--- NOTE | 2018-06-27 09:36 | ED PDOC ---
Arrival/HPI - General Chief Complaint: Medical Clearance Historian: Patient EM Caveat: Uncooperative - History of Present Illness Narrative History of Present Illness (Text): 06/27/18 09:33 67 y/o female, pmh including cad/anemia/renal failure/ckd/cervical cancer with metastatic/stercoral ulcer/nephrostomy tubes/colonovaginal/vesicovaginal, nkda, c/o send in by Dr. Ford for admission. Pt. stated that she has chronic pain from the cancer, on dilaudid, no chest pain/shortness of breath, no palpitation, no night sweat, no dizziness, no acute complaints, limited HPI can be obtained as the patient request me to call Dr. Ford. Past Medical History - Provider Review Nursing Documentation Reviewed: Yes - Infectious Disease Hx of Infectious Diseases: None - Tetanus Immunization Tetanus Immunization: Unknown - Cardiac Hx Pacemaker: No - Pulmonary Hx Bronchitis: Yes - Neurological Hx Paralysis: No - HEENT Hx HEENT Disorder: Yes (glasses) - Renal Hx Renal Failure: Yes - Endocrine/Metabolic Hx Endocrine Disorders: No - Hematological/Oncological Hx Blood Transfusions: Yes (01/2018) Hx Blood Transfusion Reaction: No - Integumentary Hx Psoriasis: Yes - Musculoskeletal/Rheumatological Hx Musculoskeletal Disorders: Yes (r ankle/ R WRIST FX R/T FALL 06/2015) - Gastrointestinal Hx Gastrointestinal Disorders: Yes (GI bleed) Hx Diverticulitis: Yes Hx Gastroesophageal Reflux: Yes - Genitourinary/Gynecological Hx Genitourinary Disorders: Yes Hx Hematuria: Yes Hx Urinary Tract Infection: Yes Other/Comment: nephrostomy surgery - Psychiatric Hx Emotional Abuse: No Hx Physical Abuse: No Hx Substance Use: No - Surgical History Hx Cardiac Catheterization: Yes Hx Coronary Stent: Yes Hx Hysterectomy: Yes Other/Comment: nephrostomy tubes,CARDIAC STENTS ,HYSTERECTOMY,RIGHT ANKLE FX, - Anesthesia Hx Anesthesia Reactions: Yes (NAUSEA) Hx Malignant Hyperthermia: No - Suicidal Assessment Feels Threatened In Home Enviroment: No Family/Social History - Physician Review Nursing Documentation Reviewed: Yes Family/Social History: Unknown Family HX Smoking Status: Former Smoker Hx Alcohol Use: No Hx Substance Use: No Hx Substance Use Treatment: No Allergies/Home Meds Allergies/Adverse Reactions: Allergies No Known Allergies Allergy (Verified 06/27/18 09:18) Home Medications: Home Meds Medication Instructions Recorded Confirmed Benzocaine/Menthol [Cepacol Sore 1 devante PO Q2H PRN 06/11/18 06/17/18 Throat] Tranexamic Acid [Lysteda] 2 tab PO BID 06/12/18 06/17/18 Esomeprazole Magnesium [Nexium] 1 cap PO DAILY 06/17/18 06/17/18 Oxycodone-Acetaminophen 5-325 2 tab PO Q6H 06/17/18 06/17/18 Terconazole 80 mg VG DAILY 06/17/18 06/17/18 Review of Systems - Review of Systems Constitutional: absent: Fatigue, Fevers Eyes: absent: Vision Changes ENT: absent: Hearing Changes Respiratory: absent: SOB, Cough Cardiovascular: absent: Chest Pain Gastrointestinal: absent: Abdominal Pain, Diarrhea, Nausea, Vomiting Musculoskeletal: absent: Arthralgias Skin: absent: Rash, Pruritis Neurological: absent: Headache, Dizziness Psychiatric: absent: Anxiety, Depression, Suicidal Ideation Physical Exam - Systems Exam Head: Present: Atraumatic, Normocephalic Pupils: Present: PERRL Extroacular Muscles: Present: EOMI Conjunctiva: Present: Normal Mouth: Present: Moist Mucous Membranes Neck: Present: Normal Range of Motion Respiratory/Chest: Present: Clear to Auscultation, Good Air Exchange. No: Respiratory Distress, Accessory Muscle Use Cardiovascular: Present: Regular Rate and Rhythm, Normal S1, S2. No: Murmurs Abdomen: No: Tenderness, Distention, Peritoneal Signs, Rebound, Guarding Back: Present: Normal Inspection Upper Extremity: Present: Normal Inspection. No: Cyanosis, Edema Lower Extremity: Present: Normal Inspection. No: Edema Neurological: Present: GCS=15, CN II-XII Intact, Speech Normal Skin: Present: Warm, Dry, Normal Color. No: Rashes Psychiatric: Present: Alert, Oriented x 3, Normal Insight, Normal Concentration Medical Decision Making ED Course and Treatment: 06/27/18 09:35 -Pt. limited HPI can be obtained, request me to call moises Gray and pending for call back. 06/27/18 11:14 -I spoke to Dr. Bhakta, discussed about this patient, stated that this patient has chronic cervical cancer with metastatic with stercoral cancer with on and off bleeding PLUS she has colonovaginal/vesicovaginal which she refused surgery last time, had transfusion in the past, recommend routine lab work and routine consult with Dr. Ortiz and Dr. Sumner which I ordered. 06/27/18 12:31 -Dr. Hebert is in the ER, discussed and examined the patient with him, recommend the patient for surgery procedure which she agreed, she is gonna be on clear diet. 06/27/18 13:01 -Chest xray: ER wet read: no active disease -Labs are non-significant except hgb 10.4 from 11.2, Mg 1.6 (mgsul 1gm ordered) -I spoke to Dr. Bhakta again, discussed about the labs, agreed this patient to his service to be admitted for surgery. - RAD Interpretation Radiology Orders: Date of service: 06/27/2018 HISTORY: medical clearance, preop COMPARISON: 05/28/2018 FINDINGS: LUNGS: No active pulmonary disease. PLEURA: No significant pleural effusion identified, no pneumothorax apparent. CARDIOVASCULAR: No aortic atherosclerotic calcification present. Normal cardiac size. No pulmonary vascular congestion. OSSEOUS STRUCTURES: No significant abnormalities. VISUALIZED UPPER ABDOMEN: Normal. OTHER FINDINGS: Left-sided central line in satisfactory position IMPRESSION: No active disease. Vest Tailor: Radiologist - PA / COUNTY MANAGER / Resident Statement MD/DO has reviewed & agrees with the documentation as recorded. Disposition/Present on Arrival - Present on Arrival Any Indicators Present on Arrival: No History of DVT/PE: No History of Uncontrolled Diabetes: No Urinary Catheter: No History of Decub. Ulcer: No History Surgical Site Infection Following: None - Disposition Have Diagnosis and Disposition been Completed?: Yes Diagnosis: Fistula, Anemia, Metastatic cancer Disposition: HOSPITALIZED Disposition Time: 13:02 Patient Plan: Admission, Observation Patient Problems: Current Active Problems Problem Status Onset Anemia Acute Fistula Acute Metastatic cancer Chronic Condition: STABLE
[2018-06-27] MEDS ORDERED: Morphine 4 mg/ml ISec IVP STA (10:32)
--- NOTE | 2018-06-27 12:27 | RAD ---
Date of service: 06/27/2018 HISTORY: medical clearance, preop COMPARISON: 05/28/2018 FINDINGS: LUNGS: No active pulmonary disease. PLEURA: No significant pleural effusion identified, no pneumothorax apparent. CARDIOVASCULAR: No aortic atherosclerotic calcification present. Normal cardiac size. No pulmonary vascular congestion. OSSEOUS STRUCTURES: No significant abnormalities. VISUALIZED UPPER ABDOMEN: Normal. OTHER FINDINGS: Left-sided central line in satisfactory position IMPRESSION: No active disease.
[2018-06-27 12:41] LABS: BASO # 0.03 K/mm3 (0.0-2.0); BASO % 0.5 % (0.0-3.0); EOS # 0.1 (0.0-0.7); EOS % 1.2 % (1.5-5.0); HEMOGLOBIN 10.4 g/dL (12.0-16.0); LYMPH # 0.5 (1.2-3.4); MEAN CORPUSCULAR HEMOGLOBIN 29.3 pg (25.0-35.0); MEAN CORPUSCULAR HGB CONC 32.2 g/dl (31.0-37.0); MEAN PLATELET VOLUME 9.4 fl (7.0-11.0); MONO # 0.5 (0.1-0.6); MONO % 7.8 % (1.0-6.0); RBC 3.55 10^6/uL (3.5-6.1); RED CELL DISTRIBUTION WIDTH 17.3 % (11.5-14.5); WHITE BLOOD COUNT 5.9 10^3/uL (4.5-11.0)
[2018-06-27 12:45] LABS: ALB/GLOB RATIO 0.9 (1.1-1.8); ALBUMIN 2.9 g/dL (3.0-4.8); INR 1.11; PARTIAL THROMBOPLASTIN TIME 35.4 Seconds (26.9-38.3); PROTHROMBIN TIME 12.5 SECONDS (9.4-12.5)
[2018-06-27] MEDS ORDERED: Magnesium Sulfate 1 gm in D5W 1 GM/100 ML BAG IVPB ONE (12:50)
[2018-06-27] MEDS ORDERED: POLYETHYLENE GLYCOL 3350 17 GM/Dose PACKET PO STA (13:09)
[2018-06-27] MEDS ORDERED: Lactated Ringer's 1,000 ML IV SCH (13:15)
[2018-06-27] MEDS ORDERED: Albuterol 0.083% Inhal Sol (2.5 mg/3 mL) UD INH PRN (14:03)
--- NOTE | 2018-06-27 14:43 | CP.PCM.CON ---
History of Present Illness - History of Present Illness History of Present Illness: General Surgery consult note for Dr. Greene PAtient is a 67 yr old female with PMH metastatic cervical cancer (Stage IV) s/p chemoradiation, radiation cystitis, nephrostomy tubes, stercoral ulceration of the rectum, CAD s/p PCI, CKD, recurrent UTIs, chronic constipation, Watkins's esophagus, psoriasis, and depression presenting with new onset feculent vaginal discharge which is very distressing to the patient. Patine endorses pelvic pain/discomfort which has been present for some time. Surgery was consulted due to findings of multiple colonic fistulas on Pelvic MRI 06/22 and new onset of feculent discharge PMH: metastatic cervical cancer (Stage IV) s/p chemoradiation, radiation cystitis, nephrostomy tubes, stercoral ulceration of the rectum, CAD s/p PCI, CKD, recurrent UTIs, chronic constipation, Watkins's esophagus, psoriasis, and depression PSH: Cardiac stenting x4, Bilateral nephrostomy tubes, Hysterectomy, ankle ORIF FH: Unknown SH: Former heavy smoker, denies alcohol or illicit drug usage. . Patient would like medical decisions to be made by sister if patient unable. ALL: NKDA Meds: See MAR Review of Systems - Review of Systems All systems: reviewed and no additional remarkable complaints except (as per HPI) Past Patient History - Infectious Disease Hx of Infectious Diseases: None - Tetanus Immunizations Tetanus Immunization: Unknown - Past Medical History & Family History Past Medical History?: Yes - Past Social History Smoking Status: Former Smoker - CARDIAC Hx Pacemaker: No - PULMONARY Hx Bronchitis: Yes - NEUROLOGICAL Hx Paralysis: No - HEENT Hx HEENT Problems: Yes (glasses) - RENAL Hx Renal Failure: Yes - ENDOCRINE/METABOLIC Hx Endocrine Disorders: No - HEMATOLOGICAL/ONCOLOGICAL Hx Blood Transfusions: Yes (01/2018) Hx Blood Transfusion Reaction: No - INTEGUMENTARY Hx Psoriasis: Yes - MUSCULOSKELETAL/RHEUMATOLOGICAL Hx Musculoskeletal Disorders: Yes (r ankle/ R WRIST FX R/T FALL 06/2015) - GASTROINTESTINAL Hx Gastrointestinal Disorders: Yes (GI bleed) Hx Diverticulitis: Yes Hx Gastroesophageal Reflux: Yes - GENITOURINARY/GYNECOLOGICAL Hx Genitourinary Disorders: Yes Hx Hematuria: Yes Hx Urinary Tract Infection: Yes Other/Comment: nephrostomy surgery - PSYCHIATRIC Hx Emotional Abuse: No Hx Physical Abuse: No Hx Substance Use: No - SURGICAL HISTORY Hx Cardiac Catheterization: Yes Hx Coronary Stent: Yes Hx Hysterectomy: Yes Other/Comment: nephrostomy tubes,CARDIAC STENTS ,HYSTERECTOMY,RIGHT ANKLE FX, - ANESTHESIA Hx Anesthesia Reactions: Yes (NAUSEA) Hx Malignant Hyperthermia: No Meds Allergies/Adverse Reactions: Allergies Allergy/AdvReac Type Severity Reaction Status Date / Time No Known Allergies Allergy Verified 06/27/18 18:37 - Medications Medications: Current Medications Acetaminophen (Tylenol 325mg Tab) 650 mg PO Q4 PRN PRN Reason: Fever >100.4 F Albuterol Sulfate (Albuterol 0.083% Inhal Viviane (2.5 Mg/3 Ml) Ud) 2.5 mg INH Q8H PRN PRN Reason: Shortness of Breath Alprazolam (Xanax) 0.25 mg PO BID PRN; Protocol PRN Reason: Anxiety Stop: 07/04/18 13:57 Hydromorphone HCl (Dilaudid) 1 mg IVP Q4H PRN PRN Reason: Pain, severe (8-10) Lactated Ringer's (Lactated Ringer's) 1,000 mls @ 75 mls/hr IV .[id number] [facility] Metoprolol Tartrate (Lopressor) 25 mg PO BID SHE[facility] Montelukast Sodium (Singulair) 10 mg PO DAILY [facility] Non-Formulary Medication (Transexemic Acid) 500 tab PO BID SHE[facility] Ondansetron HCl (Zofran Odt) 4 mg PO Q8H PRN PRN Reason: Nausea/Vomiting Pantoprazole Sodium (Protonix Ec Tab) 20 mg PO DAILY [facility] Sertraline HCl (Zoloft) 25 mg PO DAILY [facility] Sucralfate (Carafate Oral Susp) 1 gm PO BID SHE[facility] Physical Exam - Constitutional Appears: Non-toxic, No Acute Distress, Cachectic, Chronically Ill - Head Exam Head Exam: ATRAUMATIC, NORMOCEPHALIC - Eye Exam Eye Exam: EOMI - ENT Exam ENT Exam: Mucous Membranes Moist - Respiratory Exam Respiratory Exam: NORMAL BREATHING PATTERN - Cardiovascular Exam Cardiovascular Exam: REGULAR RHYTHM - GI/Abdominal Exam GI & Abdominal Exam: Soft, Tenderness (mild suprapubic tenderness). absent: Distended, Guarding - Rectal Exam Additional comments: patient refused exam - Exam Additional comments: patient refused exam - Extremities Exam Extremities exam: Negative for: calf tenderness, pedal edema - Neurological Exam Neurological exam: Alert, Oriented x3 - Psychiatric Exam Psychiatric exam: Normal Affect, Normal Mood - Skin Skin Exam: Dry, Intact, Normal Color, Warm Results - Vital Signs Recent Vital Signs: Last Vital Signs Temp 98.2 F 06/27/18 09:55 Pulse 81 06/27/18 09:55 Resp 18 06/27/18 09:55 BP 148/94 H 06/27/18 09:55 Pulse Ox 99 06/27/18 09:55 - Labs Result Diagrams: 06/28/18 07:00 06/28/18 07:00 Labs: Laboratory Results - last 24 hr 06/27/18 06/27/18 06/27/18 12:15 12:15 12:15 WBC 5.9 RBC 3.55 Hgb 10.4 L Hct 32.3 L MCV 91.0 MCH 29.3 MCHC 32.2 RDW 17.3 H Plt Count 246 MPV 9.4 Neut % (Auto) 81.5 H Lymph % (Auto) 9.0 L [place] % (Auto) 7.8 H Eos % (Auto) 1.2 L Baso % (Auto) 0.5 Lymph # (Auto) 0.5 L [place] # (Auto) 0.5 Eos # (Auto) 0.1 Baso # (Auto) 0.03 Absolute Neuts (auto) 4.78 PT 12.5 INR 1.11 APTT 35.4 Sodium 138 Potassium 3.7 Chloride 101 Carbon Dioxide 31 Anion Gap 10 BUN 17 Creatinine 1.1 Est GFR ( Amer) 60 Est GFR (Non-Af Amer) 50 Random Glucose 87 Calcium 9.0 Magnesium 1.6 L Total Bilirubin 0.3 AST 25 ALT 8 Alkaline Phosphatase 93 Total Protein 6.2 Albumin 2.9 L Globulin 3.3 Albumin/Globulin Ratio 0.9 L Blood Type Antibody Screen BBK History Checked 06/27/18 12:15 WBC RBC Hgb Hct MCV MCH MCHC RDW Plt Count MPV Neut % (Auto) Lymph % (Auto) [place] % (Auto) Eos % (Auto) Baso % (Auto) Lymph # (Auto) [place] # (Auto) Eos # (Auto) Baso # (Auto) Absolute Neuts (auto) PT INR APTT Sodium Potassium Chloride Carbon Dioxide Anion Gap BUN Creatinine Est GFR ( Amer) Est GFR (Non-Af Amer) Random Glucose Calcium Magnesium Total Bilirubin AST ALT Alkaline Phosphatase Total Protein Albumin Globulin Albumin/Globulin Ratio Blood Type O POSITIVE Antibody Screen Negative BBK History Checked Patient has bt Assessment & Plan - Assessment and Plan (Free Text) Assessment: 67 yr old female with PMH metastatic cervical cancer (Stage IV) s/p chemoradiation, radiation cystitis, nephrostomy tubes, stercoral ulceration of the rectum, CAD s/p PCI, CKD, recurrent UTIs, chronic constipation, Watkins's esophagus, psoriasis, and depression presenting with evidence of multiple colonic fistulas i the pelvis, including a colovaginal fistula which is causing the patient great distress Plan: - bowel prep as ordered - gentle hydration - CLD up until midnight - plan for OR for colostomy placement tomorrow - discussed with Dr. Ramona Kwok, PGY-1 - Date & Time Date: 06/27/18
[2018-06-27] MEDS: HYDROmorphone 1 mg/ml ISec IVP PRN ×2 (15:27→21:42)
[2018-06-27] MEDS ORDERED: TRANEXAMIC ACID PO SCH (18:00)
[2018-06-27] MEDS: Sucralfate 1 gm/10 ml Oral Susp UD PO SCH (18:25)
--- NOTE | 2018-06-27 22:48 | HP ---
DATE OF EXAM: 06/27/2018 This is Glenna Kitchen's admission history and physical. For Dr. Ford. CHIEF COMPLAINT: Rectal bleed. HISTORY OF PRESENT ILLNESS: The patient is a 67-year-old female seen sitting up in bed with multiple episodes of rectal bleeding with recent testing significant for stercoral ulcer with possible fistula developing with recent transfusion on 06/21/2018 with two units packed red blood cells, prior to that on 05/29/2018 with 2 units of packed red blood cells were transfused with the patient known to suffer from stage IV carcinoma of the cervix with metastases involving the mediastinum with radiation cystitis with bilateral nephrostomy tubes and chronic kidney disease. At present she is in no acute distress, narcotic analgesics having controlled her pain. Here for followup evaluation with possible surgery as per Dr. Greene and gastrointestinal evaluation as per Dr. Sumner. PAST MEDICAL HISTORY: As above. Also known to have ASCVD with 6 stents, bilateral nephrostomy tubes for radiation cystitis, chemotherapy complication in the past with embolization done at that time with tranexamic acid continuing to control her bleeding. More recently diagnosed with Crohn's disease, stage IV metastatic CA of the cervix with recurrent disease of the mediastinum, dysphagia, stercoral ulceration in the anal canal, Watkins's esophagus, depression, chronic kidney disease, status post hysterectomy, fractured ankle with repair. ALLERGIES: NO KNOWN ALLERGIES. MEDICATIONS: Include Carafate, Cepacol, Colace, Ecotrin, tranexamic acid, Lopressor, MiraLax, Percocet, Protonix, Robitussin, Singulair, Zofran and Zoloft. FAMILY HISTORY AND SOCIAL HISTORY: Former smoker, quit. Denies EtOH use. . Sister and niece closest family members. REVIEW OF SYSTEMS: A 12-point review of systems was done which was negative to questioning except for items mentioned in the history of present of illness. LABORATORY DATA: The patient's labs were done to include white blood cell count 5.9, hemoglobin 10.4, hematocrit 32.3 and platelet count of 246,000. INR is 1.1. Metabolic panel within normal range except for magnesium 1.6. The patient did have a chest x-ray done earlier today, it was read as no active disease. 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 anemia secondary to gastrointestinal bleed, rectal bleed and rectal ectasia hemorrhoids. Intractable pain of cancer, bilateral nephrostomy tubes, anemia status post transfusion, depression, anxiety, atherosclerotic cardiovascular disease status post stenting, chronic kidney disease, radiation cystitis and gastroesophageal reflux disease. PLAN: For this patient; after conversations with Dr. Ford and Dr. Greene is to admit via the emergency room for definitive evaluation as the patient will now agree with procedures to attempt to treat her chronic rectal bleeding with further testing as indicated. We will monitor clinically and with labs. This is a complex patient with a comprehensive medically necessary and appropriate visit carried out in excess of 45 minutes with the patient's questions answered to her satisfaction. Evaristo Saldivar MD
[2018-06-27] MEDS ORDERED: Pneumococcal 23-Valent Vaccine IM ONE (23:11)
[2018-06-27] MEDS ORDERED: Influenza Vaccine 60 mcg/0.5 mL SYR (4YR UP) IM ONE (23:11)
[2018-06-28] MEDS: HYDROmorphone 1 mg/ml ISec IVP PRN ×2 (02:10→10:28)
--- NOTE | 2018-06-28 03:05 | CON ---
DATE: 06/27/2018 HISTORY OF PRESENT ILLNESS: This patient was seen and evaluated earlier today. This is a 67-year-old patient with metastatic cervical carcinoma who was recently in the hospital, has noticed increased frequent vaginal discharge. The patient is very concerned about it. The patient is also complaining of the lower abdominal discomfort. She has a history of recurrent UTI in the past suggestive of possible vesicocolic fistula. The patient did have a flexible sigmoidoscopy done and the scope could be advanced only to 21 cm, have the extensive infiltrative changes noted. But the biopsy revealed only inflammatory changes, but no malignancy was noted. The patient did have positive mediastinal nodes, biopsy suggestive of squamous carcinoma, metastatic. The patient's previous PET scan was also reviewed. PAST MEDICAL HISTORY: Significant for hydronephrosis, obstructive uropathy, status post nephrostomy tube. History of sacral ulcerations in the past, coronary artery disease, status post PCI, chronic GERD. FAMILY HISTORY: Noncontributory. SOCIAL HISTORY: She is an ex-smoker. Denies alcohol use. ALLERGIES: NO KNOWN DRUG ALLERGIES. REVIEW OF SYSTEMS: Positive as above, other systems reviewed. The patient does have a nephrostomy tube. PHYSICAL EXAMINATION GENERAL: The patient is lying down in the bed, not in acute distress. VITAL SIGNS: Temperature is 98.2, blood pressure 136/86, respiration is 18, O2 saturation is 98%. HEENT: Atraumatic, anicteric. NECK: Supple. HEART: S1, S2 heard. LUNGS: Bilateral air entry present. ABDOMEN: Soft. A nephrostomy tube present in the right side. There was mild tenderness present in the suprapubic area. NEUROLOGIC: Alert and oriented. Moves all the extremities. LABORATORY DATA: Hemoglobin 10.4, hematocrit 32.3, WBC 5.9, platelets 246. Chemistry; magnesium 1.6. 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 The patient has more abdominal discomfort and discharge. Planned for colostomy. I discussed with Dr. Ford earlier. Thank you very much for allowing us to participate in the care of the patient. Harvey Sumner MD [facility] # [id number]
--- NOTE | 2018-06-28 06:58 | CP.PCM.PN ---
Subjective - Date & Time of Evaluation Date of Evaluation: 06/28/18 Time of Evaluation: 08:00 - Subjective Subjective: Emmanuel Moura PGY2 - Progress Note for Dr. Ford Patient seen and examined this AM at bedside. Patient reports limited bowel movements in prep for surgery today for colectomy. Patient indicates that her pain was better controlled on previous admission. She indicates abdominal discomfort. She denies chest pain, shortness of breath, nausea, vomiting, fever. Objective - Vital Signs/Intake and Output Vital Signs (last 24 hours): Temp Pulse Resp BP Pulse Ox 98.2 F 92 H 98 H 132/90 98 06/27/18 09:55 06/27/18 17:06 06/27/18 22:48 06/27/18 18:25 06/27/18 17:06 Intake and Output: 06/27/18 06/28/18 18:59 06:59 Intake Total 240 Output Total 500 Balance -260 - Medications Medications: Current Medications Acetaminophen (Tylenol 325mg Tab) 650 mg PO Q4 PRN PRN Reason: Fever >100.4 F Albuterol Sulfate (Albuterol 0.083% Inhal Viviane (2.5 Mg/3 Ml) Ud) 2.5 mg INH Q8H PRN PRN Reason: Shortness of Breath Alprazolam (Xanax) 0.25 mg PO BID PRN; Protocol PRN Reason: Anxiety Stop: 07/04/18 13:57 Last Admin: 06/27/18 22:25 Dose: 0.25 mg Hydromorphone HCl (Dilaudid) 1 mg IVP Q4H PRN PRN Reason: Pain, severe (8-10) Last Admin: 06/28/18 02:10 Dose: 1 mg Lactated Ringer's (Lactated Ringer's) 1,000 mls @ 75 mls/hr IV .[id number] SHELBY Last Admin: 06/27/18 15:33 Dose: 75 mls/hr Metoprolol Tartrate (Lopressor) 25 mg PO BID [facility] Last Admin: 06/27/18 18:25 Dose: 25 mg Montelukast Sodium (Singulair) 10 mg PO DAILY [facility] Tranexemic Acid 650 (Mg Tab (Home Med)) 0 tab PO BID [facility] Ondansetron HCl (Zofran Odt) 4 mg PO Q8H PRN PRN Reason: Nausea/Vomiting Pantoprazole Sodium (Protonix Ec Tab) 20 mg PO DAILY [facility] Sertraline HCl (Zoloft) 25 mg PO DAILY [facility] Sucralfate (Carafate Oral Susp) 1 gm PO BID [facility] Last Admin: 06/27/18 18:25 Dose: 1 gm - Labs Labs: 06/27/18 12:15 06/27/18 12:15 PT 12.5 SECONDS (9.4-12.5) 06/27/18 12:15 INR 1.11 06/27/18 12:15 APTT 35.4 Seconds (26.9-38.3) 06/27/18 12:15 - Constitutional Appears: No Acute Distress, Older Than Stated Age, Chronically Ill - Head Exam Head Exam: ATRAUMATIC, NORMOCEPHALIC - Eye Exam Eye Exam: EOMI, PERRL - ENT Exam ENT Exam: Mucous Membranes Moist - Neck Exam Neck Exam: Full ROM - Respiratory Exam Respiratory Exam: Clear to Ausculation Bilateral, NORMAL BREATHING PATTERN - Cardiovascular Exam Cardiovascular Exam: REGULAR RHYTHM, +S1, +S2 - GI/Abdominal Exam GI & Abdominal Exam: Soft, Normal Bowel Sounds - Extremities Exam Extremities Exam: absent: Calf Tenderness, Pedal Edema - Neurological Exam Neurological Exam: Alert, Awake, CN II-XII Intact, Oriented x3 Neuro motor strength exam: Left Upper Extremity: 5, Right Upper Extremity: 5, Left Lower Extremity: 5, Right Lower Extremity: 5 - Psychiatric Exam Psychiatric exam: Normal Affect, Normal Mood - Skin Skin Exam: Dry, Warm Assessment and Plan - Assessment and Plan (Free Text) Assessment: 67 yo F with PMH of stage 4 cervical cancer s/p chemoradiation, CAD s/p stenting(x4), CKD, h/o nephrostomy tubes, radiation cystitis, psoriasis, depression, and stercoral rectal ulcer is admitted to [facility] for abdominal pain secondary to likely fistula and for colectomy with general surgery. Plan: [place]-vaginal fistula - Pelvic MRI from previous admission showing vesico-vaginal fistula, colo- vaginal fistula, distal rectosigmoid and vagina fistula, bilateral inguinal lymph nodes - GI consulted and following - - General surgery consulted and following, appreciate recs - Colectomy tentively scheduled for today Hypokalemia - Patient noted to be hypokalemia - Plan to replace with 60 meQ KCl Depression -continue home med zoloft 25mg po qd CKD -Cr appears to be at baseline -continue to monitor -with bilateral nephrostomy tubesm recent replacement of right with IR CAD status post stent (x4) -continue current medications -Last known LVEF 62% Palliative care consult placed for goals of care DVT/GI PPX Patient case and plan discussed with attending, Dr. Ford
[2018-06-28 07:19] LABS: BASO # 0.02 K/mm3 (0.0-2.0); BASO % 0.5 % (0.0-3.0); EOS # 0.1 (0.0-0.7); HEMOGLOBIN 9.3 g/dL (12.0-16.0); LYMPH # 0.7 (1.2-3.4); MEAN CELL VOLUME 91.3 fl (80.0-105.0); MEAN CORPUSCULAR HEMOGLOBIN 28.8 pg (25.0-35.0); MEAN CORPUSCULAR HGB CONC 31.5 g/dl (31.0-37.0); MONO # 0.4 (0.1-0.6); RBC 3.23 10^6/uL (3.5-6.1); RED CELL DISTRIBUTION WIDTH 17.1 % (11.5-14.5); WHITE BLOOD COUNT 3.7 10^3/uL (4.5-11.0)
--- NOTE | 2018-06-28 07:23 | CP.PCM.PN ---
<Topher Amato - Last Filed: 06/28/18 09:26> Subjective - Date & Time of Evaluation Date of Evaluation: 06/28/18 Time of Evaluation: 06:23 - Subjective Subjective: Topher Amato PGY2 GI Progress Note for Dr. Sumner Patient was seen and examined at bedside. She is prepped for OR this AM for colostomy. No acute overnight events noted. Objective - Vital Signs/Intake and Output Vital Signs (last 24 hours): Temp Pulse Resp BP Pulse Ox 98.2 F 92 H 98 H 132/90 98 06/27/18 09:55 06/27/18 17:06 06/27/18 22:48 06/27/18 18:25 06/27/18 17:06 Intake and Output: 06/28/18 06/28/18 06:59 18:59 Intake Total 240 Output Total 500 Balance -260 - Medications Medications: Current Medications Acetaminophen (Tylenol 325mg Tab) 650 mg PO Q4 PRN PRN Reason: Fever >100.4 F Albuterol Sulfate (Albuterol 0.083% Inhal Viviane (2.5 Mg/3 Ml) Ud) 2.5 mg INH Q8H PRN PRN Reason: Shortness of Breath Alprazolam (Xanax) 0.25 mg PO BID PRN; Protocol PRN Reason: Anxiety Stop: 07/04/18 13:57 Last Admin: 06/27/18 22:25 Dose: 0.25 mg Hydromorphone HCl (Dilaudid) 1 mg IVP Q4H PRN PRN Reason: Pain, severe (8-10) Last Admin: 06/28/18 02:10 Dose: 1 mg Lactated Ringer's (Lactated Ringer's) 1,000 mls @ 75 mls/hr IV .[id number] [facility] Last Admin: 06/27/18 15:33 Dose: 75 mls/hr Metoprolol Tartrate (Lopressor) 25 mg PO BID [facility] Last Admin: 06/27/18 18:25 Dose: 25 mg Montelukast Sodium (Singulair) 10 mg PO DAILY [facility] Tranexemic Acid 650 (Mg Tab (Home Med)) 0 tab PO BID [facility] Ondansetron HCl (Zofran Odt) 4 mg PO Q8H PRN PRN Reason: Nausea/Vomiting Pantoprazole Sodium (Protonix Ec Tab) 20 mg PO DAILY [facility] Sertraline HCl (Zoloft) 25 mg PO DAILY [facility] Sucralfate (Carafate Oral Susp) 1 gm PO BID [facility] Last Admin: 06/27/18 18:25 Dose: 1 gm - Labs Labs: 06/28/18 07:00 06/27/18 12:15 PT 12.5 SECONDS (9.4-12.5) 06/27/18 12:15 INR 1.11 06/27/18 12:15 APTT 35.4 Seconds (26.9-38.3) 06/27/18 12:15 - Constitutional Appears: Well, No Acute Distress - Head Exam Head Exam: ATRAUMATIC, NORMAL INSPECTION, NORMOCEPHALIC - Eye Exam Eye Exam: EOMI, Normal appearance, PERRL Pupil Exam: NORMAL ACCOMODATION, PERRL - ENT Exam ENT Exam: Mucous Membranes Moist, Normal Exam - Neck Exam Neck Exam: Full ROM, Normal Inspection. absent: Lymphadenopathy - Respiratory Exam Respiratory Exam: NORMAL BREATHING PATTERN. absent: Respiratory Distress - Cardiovascular Exam Cardiovascular Exam: REGULAR RHYTHM, +S1, +S2 - GI/Abdominal Exam GI & Abdominal Exam: Soft, Normal Bowel Sounds. absent: Distended, Tenderness - Rectal Exam Rectal Exam: Deferred - Exam Additional comments: b/l nephrostomy tubes - Extremities Exam Extremities Exam: Full ROM, Normal Capillary Refill, Normal Inspection. absent: Joint Swelling, Pedal Edema - Neurological Exam Neurological Exam: Alert, Awake, CN II-XII Intact, Oriented x3 - Skin Skin Exam: Dry, Intact, Normal Color, Warm Assessment and Plan - Assessment and Plan (Free Text) Assessment: 67 year old Female with a PMH of cervical cancer with a recent flex sig for done for rectal bleeding showing large likely extrinsic/subepithelial mass severely compressing rectum; pathology shows necrotic inflammatory material, no cancer. Prior MRI showed 2 fistulas (colovaginal, vesicovaginal), and patient is now presenting with urinary fecal matter. Patient is planned for diverting ostomy with surgery team. Plan: - monitor H/H - NPO - management per surgical team - no plans for endoscopy at this time - further recs per Dr. Sumner This note is not finalized until signed Case was discussed with attending, Dr. Sumner <Taisha,Kovil V - Last Filed: 06/28/18 21:39> Objective - Vital Signs/Intake and Output Vital Signs (last 24 hours): Temp Pulse Resp BP Pulse Ox 97.4 F L 86 18 147/75 98 06/28/18 20:00 06/28/18 20:00 06/28/18 20:00 06/28/18 20:00 06/28/18 20:00 Intake and Output: 06/28/18 06/29/18 18:59 06:59 Intake Total 100 Balance 100 - Medications Medications: Current Medications Acetaminophen (Tylenol 325mg Tab) 650 mg PO Q4 PRN PRN Reason: Fever >100.4 F Albuterol Sulfate (Albuterol 0.083% Inhal Viviane (2.5 Mg/3 Ml) Ud) 2.5 mg INH Q8H PRN PRN Reason: Shortness of Breath Alprazolam (Xanax) 0.25 mg PO BID PRN; Protocol PRN Reason: Anxiety Stop: 07/04/18 13:57 Last Admin: 06/27/18 22:25 Dose: 0.25 mg Hydromorphone HCl (Dilaudid) 1 mg IVP Q3H PRN PRN Reason: Pain, severe (8-10) Lactated Ringer's (Lactated Ringer's) 1,000 mls @ 100 mls/hr IV .Q10H [facility] Metronidazole (Flagyl) 500 mg in 100 mls @ 100 mls/hr IVPB [id number] [facility]; Protocol Stop: 06/29/18 09:33 Cefazolin Sodium (Ancef 1gm In Ns) 1 gm in 100 mls @ 100 mls/hr IVPB [id number] [facility] Stop: 06/29/18 09:33 Hydromorphone HCl (Dilaudid-Hp 1 Mg/Ml Mounter Sousaphones) 30 mls @ 1 mls/hr IV PRN PRN; Protocol PRN Reason: LAUNDRY AGENT PER MD ORDER Metoprolol Tartrate (Lopressor) 25 mg PO BID [facility] Last Admin: 06/28/18 10:29 Dose: 25 mg Montelukast Sodium (Singulair) 10 mg PO DAILY [facility] Last Admin: 06/28/18 10:29 Dose: 10 mg Tranexemic Acid 650 (Mg Tab (Home Med)) 0 tab PO BID [facility] Last Admin: 06/28/18 10:29 Dose: 2 tab Ondansetron HCl (Zofran Odt) 4 mg PO Q8H PRN PRN Reason: Nausea/Vomiting Ondansetron HCl (Zofran Inj) 4 mg IVP Q6 PRN PRN Reason: Nausea/Vomiting Pantoprazole Sodium (Protonix Ec Tab) 20 mg PO DAILY [facility] Last Admin: 06/28/18 10:30 Dose: 20 mg Sertraline HCl (Zoloft) 25 mg PO DAILY [facility] Last Admin: 06/28/18 10:29 Dose: 25 mg Sucralfate (Carafate Oral Susp) 1 gm PO BID [facility] Last Admin: 06/28/18 10:29 Dose: 1 gm - Labs Labs: 06/28/18 07:00 06/28/18 07:00 PT 12.5 SECONDS (9.4-12.5) 06/27/18 12:15 INR 1.11 06/27/18 12:15 APTT 35.4 Seconds (26.9-38.3) 06/27/18 12:15 Attending/Attestation - Attestation I have personally seen and examined this patient.: Yes I have fully participated in the care of the patient.: Yes I have reviewed all pertinent clinical information, including history, physical exam and plan: Yes Notes (Text): This is an addendum to the GI progress report dictated by the medical practice administrator the patient was seen and evaluated here earlier. Status post transverse colostomy now. Family were at bedside at the time of examination. Stage IV metastatic cervical CA. 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 Postop as per surgery 06/28/18 21:37
[2018-06-28 07:36] LABS: ALB/GLOB RATIO 0.9 (1.1-1.8); ALBUMIN 2.6 g/dL (3.0-4.8); ALT/SGPT 13 U/L (7-56); AST/SGOT 19 U/L (14-36); BLOOD UREA NITROGEN 13 mg/dL (7-21); CALCIUM 8.4 mg/dL (8.4-10.5); GFR NON-AFRICAN AMERICAN 55
[2018-06-28] MEDS: TRANEXAMIC ACID 650 MG PO SCH (10:29)
[2018-06-28] MEDS: Sucralfate 1 gm/10 ml Oral Susp UD PO SCH (10:29)
[2018-06-28] MEDS: Pantoprazole 20 mg EC Tab PO SCH (10:30)
[2018-06-28] MEDS ORDERED: HYDROmorphone 1 mg/ml ISec IVP PRN (12:47)
[2018-06-28] MEDS ORDERED: Potassium Chloride 20 mEq ER Tab PO ONE ×2 (12:56→13:01)
--- NOTE | 2018-06-28 14:14 | CP.PCM.CON ---
History of Present Illness - History of Present Illness History of Present Illness: Palliative consult requested b Dr Caterina Ford Reason: Goals of care This is a 67 yr old female with history of metastatic cervical cancer who presented to the hospital on 06/07/18 with new onset feculent vaginal discharge.The patient also complains of worsening pelvic pain/discomfort. An MRI which was done on 06/22 showed vesico-vaginal fistula, colo-vaginal fistula, distal rectosigmoid and vagina fistula, bilateral inguinal lymph nodes. She denies fever, chills, nausea, vomiting, shortness of breath, chets pain, palpations, headache. PMH: metastatic cervical cancer s/p chemoradiation, radiation cystitis, nephrostomy tubes, stercoral ulceration of the rectum, CAD, CKD, recurrent UTIs, chronic constipation, Watkins's esophagus, psoriasis, and depression PSH: Cardiac stenting x4, bilateral nephrostomy tubes, hysterectomy,port a cath, ankle ORIF. Family History: Denies contributory family history. Social History: Former heavy smoker, denies alcohol or illicit drug usage. . Advance Care Planning: The patient has an Advanced Directive. Review of Systems: per HPI, 12 point ROS negative Past Patient History - Infectious Disease Hx of Infectious Diseases: None - Tetanus Immunizations Tetanus Immunization: Unknown - Past Medical History & Family History Past Medical History?: Yes - Past Social History Smoking Status: Former Smoker - CARDIAC Hx Cardiac Disorders: Yes Hx Pacemaker: No - PULMONARY Hx Respiratory Disorders: Yes Hx Bronchitis: Yes - NEUROLOGICAL Hx Neurological Disorder: Yes Hx Dizziness: Yes Hx Transient Ischemic Attacks (TIA): Yes (20yrs ago) - HEENT Hx HEENT Problems: Yes (glasses) - RENAL Hx Chronic Kidney Disease: Yes Hx Renal Failure: Yes - ENDOCRINE/METABOLIC Hx Endocrine Disorders: No - HEMATOLOGICAL/ONCOLOGICAL Hx Blood Transfusions: Yes Hx Blood Transfusion Reaction: No - INTEGUMENTARY Hx Dermatological Problems: Yes Hx Psoriasis: Yes - MUSCULOSKELETAL/RHEUMATOLOGICAL Hx Musculoskeletal Disorders: Yes (r ankle/ R WRIST FX R/T FALL 06/2015) Hx Falls: Yes - GASTROINTESTINAL Hx Gastrointestinal Disorders: Yes (GI bleed) Hx Diverticulitis: Yes Hx Gastroesophageal Reflux: Yes - GENITOURINARY/GYNECOLOGICAL Hx Genitourinary Disorders: Yes Hx Hematuria: Yes Hx Urinary Tract Infection: Yes Other/Comment: nephrostomy surgery - PSYCHIATRIC Hx Emotional Abuse: No Hx Physical Abuse: No Hx Substance Use: No - SURGICAL HISTORY Hx Surgeries: Yes - ANESTHESIA Hx Anesthesia Reactions: Yes (NAUSEA) Hx Malignant Hyperthermia: No Meds Allergies/Adverse Reactions: Allergies Allergy/AdvReac Type Severity Reaction Status Date / Time No Known Allergies Allergy Verified 06/27/18 18:37 - Medications Medications: Current Medications Acetaminophen (Tylenol 325mg Tab) 650 mg PO Q4 PRN PRN Reason: Fever >100.4 F Albuterol Sulfate (Albuterol 0.083% Inhal Viviane (2.5 Mg/3 Ml) Ud) 2.5 mg INH Q8H PRN PRN Reason: Shortness of Breath Alprazolam (Xanax) 0.25 mg PO BID PRN; Protocol PRN Reason: Anxiety Stop: 07/04/18 13:57 Last Admin: 06/27/18 22:25 Dose: 0.25 mg Hydromorphone HCl (Dilaudid) 1 mg IVP Q3H PRN PRN Reason: Pain, severe (8-10) Lactated Ringer's (Lactated Ringer's) 1,000 mls @ 75 mls/hr IV .[id number] [facility] Last Admin: 06/27/18 15:33 Dose: 75 mls/hr Metoprolol Tartrate (Lopressor) 25 mg PO BID [facility] Last Admin: 06/28/18 10:29 Dose: 25 mg Montelukast Sodium (Singulair) 10 mg PO DAILY [facility] Last Admin: 06/28/18 10:29 Dose: 10 mg Tranexemic Acid 650 (Mg Tab (Home Med)) 0 tab PO BID [facility] Last Admin: 06/28/18 10:29 Dose: 2 tab Ondansetron HCl (Zofran Odt) 4 mg PO Q8H PRN PRN Reason: Nausea/Vomiting Pantoprazole Sodium (Protonix Ec Tab) 20 mg PO DAILY [facility] Last Admin: 06/28/18 10:30 Dose: 20 mg Sertraline HCl (Zoloft) 25 mg PO DAILY [facility] Last Admin: 06/28/18 10:29 Dose: 25 mg Sucralfate (Carafate Oral Susp) 1 gm PO BID [facility] Last Admin: 06/28/18 10:29 Dose: 1 gm Physical Exam - Constitutional Appears: Cachectic, Chronically Ill - Eye Exam Eye Exam: Normal appearance, PERRL - ENT Exam ENT Exam: Mucous Membranes Moist, Normal Oropharynx - Respiratory Exam Respiratory Exam: Clear to Auscultation Bilateral, NORMAL BREATHING PATTERN - Cardiovascular Exam Cardiovascular Exam: REGULAR RHYTHM, +S1, +S2 - GI/Abdominal Exam GI & Abdominal Exam: Distended, Normal Bowel Sounds, Soft - Rectal Exam Rectal Exam: Deferred - Extremities Exam Extremities exam: Positive for: pedal edema, pedal pulses present - Back Exam Additional comments: bilateral nephrostomy tube patent - Neurological Exam Neurological exam: Alert, Oriented x3 - Skin Skin Exam: Dry, Pallor, Warm - Additional Findings Additional findings: Palliative performance scale rating 40% Results - Vital Signs Recent Vital Signs: Last Vital Signs Temp 97.5 F L 06/28/18 06:00 Pulse 75 06/28/18 06:00 Resp 20 06/28/18 06:00 BP 128/85 06/28/18 06:00 Pulse Ox 96 06/28/18 06:00 - Labs Result Diagrams: 06/28/18 07:00 06/28/18 07:00 Labs: Laboratory Results - last 24 hr 06/28/18 06/28/18 07:00 07:00 WBC 3.7 L D RBC 3.23 L Hgb 9.3 L Hct 29.5 L MCV 91.3 MCH 28.8 MCHC 31.5 RDW 17.1 H Plt Count 200 MPV 9.0 Neut % (Auto) 66.5 Lymph % (Auto) 18.0 L Crawford % (Auto) 12.0 H Eos % (Auto) 3.0 Baso % (Auto) 0.5 Lymph # (Auto) 0.7 L Crawford # (Auto) 0.4 Eos # (Auto) 0.1 Baso # (Auto) 0.02 Absolute Neuts (auto) 2.43 Sodium 138 Potassium 3.2 L Chloride 102 Carbon Dioxide 30 Anion Gap 9 L BUN 13 Creatinine 1.0 Est GFR ( Amer) > 60 Est GFR (Non-Af Amer) 55 Random Glucose 73 Calcium 8.4 Phosphorus 3.4 Magnesium 1.7 Total Bilirubin 0.2 AST 19 ALT 13 Alkaline Phosphatase 78 Total Protein 5.7 L Albumin 2.6 L Globulin 3.1 Albumin/Globulin Ratio 0.9 L Assessment & Plan - Assessment and Plan (Free Text) Assessment: This is a 67 year old female with history of stage 4 cervical cancer s/p chemoradiation, CAD s/p stenting, CKD,bilateral nephrostomy tubes, radiation cystitis, psoriasis, depression and stercoral rectal ulcer who is admitted with abdominal pain,fecal discharge, hypokalemaia and CKD She is scheduled for a colectomy later today Glenna is known to me from previous admissions. She is lethargic. She is aware of her diagnosis and reason for admission. States she has chronic abdominal pain and rectal discomfort> She is scheduled for colectomy later today. During previous admission she had done an Advanced Directive in which she stated she wanted to have CPR and intubation. When we met today she stated that she has changed her mind and does not want to be intubated, still willing to have CPR> She is aware that she will be intubated during her surgery with the expectation that the tube will be removed. She does not want to be maintained on a ventilator permanently. She states she is to tired to do a new directive today. Psychosocial support provided. Time spent in goals of care and advance care planning, 20 minutes Plan: Goals of care and advance care planning> DNI [place]-vaginal fistula: Surgery following, colectomy scheduled for today. Pain: Dilaudid mg IV as needed Hypokalemia: 60 meQ KCl given Depression: continue Zoloft 25mg po daily, Xanax as needed Chronic CKD :continue to monitor labs, IVF's CAD:continue current medications DVT/GI PPX
[2018-06-28] MEDS ORDERED: Propofol 10 mg/ml Inj (20 ML) ONE (15:36)
[2018-06-28] MEDS ORDERED: Midazolam 2 MG/2 ML VIAL ONE (15:36)
[2018-06-28] MEDS ORDERED: Rocuronium 10 mg/ml (5 ml) ONE (15:37)
--- NOTE | 2018-06-28 15:56 | CP.PCM.PCO ---
Physician Communication Note - Physician Communication Note Physician Communication Note: patient seen in bed,complaints of perianal pain,for colectomy,ostomy
[2018-06-28] MEDS ORDERED: metroNIDAZOLE IV 500 mg/100 ml 500 MG/100 ML BAG ONE (16:34)
[2018-06-28] MEDS ORDERED: Liquid Adhesive TOP ONE (18:06)
[2018-06-28] MEDS ORDERED: Glycopyrrolate 0.2 mg/ml (2ml vial) ONE (18:15)
[2018-06-28] MEDS ORDERED: HYDROmorphone 1 mg/ml PCA IV ONE (18:42)
[2018-06-28] MEDS: HYDROmorphone 0.5 mg/0.5 ml ISec IVP PRN ×3 (18:42→19:05)
[2018-06-28] MEDS ORDERED: Lactated Ringer's 1,000 ML IV SCH (18:45)
--- NOTE | 2018-06-28 18:49 | PCM.SURG1 ---
Surgeon's Initial Post Op Note - Surgeon's Notes Surgeon: Dr. Greene Statistical Machine Mechanic: Dr. Kwok, PGY 1 Type of Anesthesia: General Endo Anesthesia Administered By: Dr. Dennis Pre-Operative Diagnosis: colovesicular fistula Operative Findings: colovesicular fistula Post-Operative Diagnosis: colovesicular fistula Operation Performed: LLQ end colostomy placement with mucus fistula Specimen/Specimens Removed: none Estimated Blood Loss: EBL {In ML}: 15 Drains Used: No Drains, Chest Tubes Post-Op Condition: Good Date of Surgery/Procedure: 06/28/18 Time of Surgery/Procedure: 16:48
[2018-06-28] MEDS ORDERED: HYDROmorphone 0.5 mg/0.5 ml ISec ONE ×2 (19:02→19:17)
[2018-06-28] MEDS ORDERED: HYDROmorphone 0.5 mg/0.5 ml ISec IVP STA (20:23)
[2018-06-28] MEDS ORDERED: HYDROmorphone 1 mg/ml PCA 30 ML IV PRN (21:22)
--- NOTE | 2018-06-28 22:22 | CARD ---
APPROVED REPORT Date of service: 06/28/2018 EKG Measurement Heart [id number] <Conclusion> Normal sinus rhythm Leftward axis Cannot rule out Anterior infarct, age undetermined CCR Abnormal ECG
[2018-06-28] MEDS ORDERED: HYDROmorphone 1 mg/ml ISec IVP STA (22:58)
[2018-06-29] MEDS: metroNIDAZOLE IV 500 mg/100 ml 500 MG/100 ML BAG IVPB SCH ×2 (00:23→08:16)
[2018-06-29] MEDS: ceFAZolin 1 gm in NS 1 GM/100 ML BAG IVPB SCH ×2 (00:24→08:24)
[2018-06-29 07:09] LABS: BASO # 0.01 K/mm3 (0.0-2.0); BASO % 0.1 % (0.0-3.0); LYMPH # 0.5 (1.2-3.4); LYMPH % 4.6 % (22.0-35.0); MEAN CELL VOLUME 95.1 fl (80.0-105.0); MEAN CORPUSCULAR HEMOGLOBIN 28.6 pg (25.0-35.0); MEAN PLATELET VOLUME 9.8 fl (7.0-11.0); MONO # 0.5 (0.1-0.6); MONO % 4.7 % (1.0-6.0); PLATELET COUNT 265 10^3/uL (120.0-450.0); RED CELL DISTRIBUTION WIDTH 17.7 % (11.5-14.5)
[2018-06-29 07:34] LABS: ALB/GLOB RATIO 0.9 (1.1-1.8); ALBUMIN 3.2 g/dL (3.0-4.8); CALCIUM 8.8 mg/dL (8.4-10.5)
--- NOTE | 2018-06-29 07:58 | CP.PCM.PN ---
Subjective - Date & Time of Evaluation Date of Evaluation: 06/29/18 Time of Evaluation: 07:05 - Subjective Subjective: General surgery progress note for Dr. Greene Patient seen and examined this ma at bedside. Pain well controlled overnight with WEIGHT LOSS PHYSICIAN. Patient denies any ostomy output as of yet. She continues to have mixed blood and stool output vaginally. UOP has been sufficient overnight. PAtient endorses IS use and is able to inspire up to 1500. pt has been OOBTC overnight Objective - Vital Signs/Intake and Output Vital Signs (last 24 hours): Temp Pulse Resp BP Pulse Ox 98.1 F 86 20 124/78 95 06/29/18 00:00 06/29/18 00:00 06/29/18 00:00 06/29/18 00:00 06/29/18 00:00 - Medications Medications: Current Medications Acetaminophen (Tylenol 325mg Tab) 650 mg PO Q4 PRN PRN Reason: Fever >100.4 F Albuterol Sulfate (Albuterol 0.083% Inhal Viviane (2.5 Mg/3 Ml) Ud) 2.5 mg INH Q8H PRN PRN Reason: Shortness of Breath Alprazolam (Xanax) 0.25 mg PO BID PRN; Protocol PRN Reason: Anxiety Stop: 07/04/18 13:57 Last Admin: 06/27/18 22:25 Dose: 0.25 mg Enoxaparin Sodium (Lovenox) 40 mg SC DAILY [facility]; Protocol Hydromorphone HCl (Dilaudid) 1 mg IVP Q3H PRN PRN Reason: Pain, severe (8-10) Lactated Ringer's (Lactated Ringer's) 1,000 mls @ 100 mls/hr IV .Q10H [facility] Metronidazole (Flagyl) 500 mg in 100 mls @ 100 mls/hr IVPB [id number] [facility]; Protocol Stop: 06/29/18 09:33 Last Admin: 06/29/18 00:23 Dose: 100 mls/hr Cefazolin Sodium (Ancef 1gm In Ns) 1 gm in 100 mls @ 100 mls/hr IVPB [id number] [facility] Stop: 06/29/18 09:33 Last Admin: 06/29/18 00:24 Dose: 100 mls/hr Hydromorphone HCl (Dilaudid-Hp 1 Mg/Ml Security Supervisor) 30 mls @ 1 mls/hr IV PRN PRN; Protocol PRN Reason: WEIGHT LOSS PHYSICIAN PER MD ORDER Last Admin: 06/28/18 22:07 Dose: 1 mls/hr Metoprolol Tartrate (Lopressor) 25 mg PO BID [facility] Last Admin: 06/28/18 10:29 Dose: 25 mg Montelukast Sodium (Singulair) 10 mg PO DAILY [facility] Last Admin: 06/28/18 10:29 Dose: 10 mg Tranexemic Acid 650 (Mg Tab (Home Med)) 0 tab PO BID [facility] Last Admin: 06/28/18 10:29 Dose: 2 tab Ondansetron HCl (Zofran Odt) 4 mg PO Q8H PRN PRN Reason: Nausea/Vomiting Pantoprazole Sodium (Protonix Ec Tab) 20 mg PO DAILY [facility] Last Admin: 06/28/18 10:30 Dose: 20 mg Sertraline HCl (Zoloft) 25 mg PO DAILY [facility] Last Admin: 06/28/18 10:29 Dose: 25 mg Sucralfate (Carafate Oral Susp) 1 gm PO BID [facility] Last Admin: 06/28/18 10:29 Dose: 1 gm - Labs Labs: 06/29/18 05:00 06/29/18 05:00 PT 12.5 SECONDS (9.4-12.5) 06/27/18 12:15 INR 1.11 06/27/18 12:15 APTT 35.4 Seconds (26.9-38.3) 06/27/18 12:15 - Constitutional Appears: Well, Non-toxic, No Acute Distress - Head Exam Head Exam: ATRAUMATIC, NORMOCEPHALIC - Eye Exam Eye Exam: EOMI - ENT Exam ENT Exam: Mucous Membranes Moist - Respiratory Exam Respiratory Exam: NORMAL BREATHING PATTERN - Cardiovascular Exam Cardiovascular Exam: REGULAR RHYTHM - GI/Abdominal Exam GI & Abdominal Exam: Soft, Tenderness (appropriate). absent: Guarding Additional comments: Operative dressing in place with mucus fistula clamp in place, ostomy is pink patent mildly edematous, well perfused no signs of ischemia - Extremities Exam Extremities Exam: absent: Calf Tenderness, Pedal Edema Additional comments: SCD in place - Neurological Exam Neurological Exam: Alert, Awake, Oriented x3 - Psychiatric Exam Psychiatric exam: Normal Affect, Normal Mood - Skin Skin Exam: Dry, Intact, Normal Color, Warm Assessment and Plan - Assessment and Plan (Free Text) Assessment: 67 yr old female S/p Young's procedure (end colostomy placement with mucus fistula) POD 1 Plan: - CLD - pain control - encourage IS use and OOBTC - AE hose this am - monitor ostomy output - begin Lovenox this am - will discuss with Dr. greene, further recs per him Katiuska Kwok, PGY 1
[2018-06-29] MEDS: Sucralfate 1 gm/10 ml Oral Susp UD PO SCH ×2 (09:51→17:36)
[2018-06-29] MEDS: TRANEXAMIC ACID 650 MG PO SCH ×2 (09:53→17:38)
[2018-06-29] MEDS: Enoxaparin 40 mg Syringe SC SCH (09:53)
[2018-06-29] MEDS: Pantoprazole 20 mg EC Tab PO SCH (09:53)
[2018-06-29 10:12] LABS: ANISOCYTOSIS 1+; BAND 2 % (0-2); HYPOCHROMIA 1+; LYMPHOCYTE 4 % (22.0-35.0); MONOCYTE 3 % (1.0-6.0); NEUTROPHIL 91 % (50.0-70.0); PLATELET ESTIMATE NORMAL (NORMAL)
[2018-06-29 10:13] LABS: TOXIC GRANULATION 1+
[2018-06-29] MEDS ORDERED: HYDROmorphone 1 mg/ml PCA 30 ML IV PRN (16:09)
[2018-06-29] MEDS: Lactated Ringer's 1,000 ML IV SCH (17:37)
--- NOTE | 2018-06-29 18:41 | CP.PCM.PN ---
<Josie Bowen - Last Filed: 06/29/18 18:41> Subjective - Date & Time of Evaluation Date of Evaluation: 06/29/18 Time of Evaluation: 08:00 - Subjective Subjective: PGY5 GI Follow-up Pt seen and examined bedside tolerating liquid diet gas and liquid in bag denies any abd pain ROS: 12 point ROS conducted, neg other than above Objective - Vital Signs/Intake and Output Vital Signs (last 24 hours): Temp Pulse Resp BP Pulse Ox 97.2 F L 93 H 18 119/82 95 06/29/18 16:29 06/29/18 17:38 06/29/18 16:29 06/29/18 17:38 06/29/18 16:29 - Medications Medications: Current Medications Acetaminophen (Tylenol 325mg Tab) 650 mg PO Q4 PRN PRN Reason: Fever >100.4 F Albuterol Sulfate (Albuterol 0.083% Inhal Viviane (2.5 Mg/3 Ml) Ud) 2.5 mg INH Q8H PRN PRN Reason: Shortness of Breath Last Admin: 06/29/18 08:24 Dose: 2.5 mg Alprazolam (Xanax) 0.25 mg PO BID PRN; Protocol PRN Reason: Anxiety Stop: 07/04/18 13:57 Last Admin: 06/27/18 22:25 Dose: 0.25 mg Enoxaparin Sodium (Lovenox) 40 mg SC DAILY [facility]; Protocol Last Admin: 06/29/18 09:53 Dose: 40 mg Hydromorphone HCl (Dilaudid) 1 mg IVP Q3H PRN PRN Reason: Pain, severe (8-10) Lactated Ringer's (Lactated Ringer's) 1,000 mls @ 100 mls/hr IV .Q10H [facility] Last Admin: 06/29/18 17:37 Dose: Not Given Hydromorphone HCl (Dilaudid-Hp 1 Mg/Ml Privacy Specialist) 30 mls @ 1 mls/hr IV PRN PRN; Protocol PRN Reason: LEAD RETAIL SALES ASSOCIATE PER MD ORDER Metoprolol Tartrate (Lopressor) 25 mg PO BID [facility] Last Admin: 06/29/18 17:38 Dose: 25 mg Montelukast Sodium (Singulair) 10 mg PO DAILY [facility] Last Admin: 06/29/18 09:53 Dose: 10 mg Tranexemic Acid 650 (Mg Tab (Home Med)) 0 tab PO BID [facility] Last Admin: 06/29/18 17:38 Dose: 2 tab Ondansetron HCl (Zofran Odt) 4 mg PO Q8H PRN PRN Reason: Nausea/Vomiting Ondansetron HCl (Zofran Inj) 4 mg IVP Q6H PRN PRN Reason: Nausea/Vomiting Last Admin: 06/29/18 12:14 Dose: 4 mg Pantoprazole Sodium (Protonix Ec Tab) 20 mg PO DAILY [facility] Last Admin: 06/29/18 09:53 Dose: 20 mg Sertraline HCl (Zoloft) 25 mg PO DAILY [facility] Last Admin: 06/29/18 09:54 Dose: 25 mg Sucralfate (Carafate Oral Susp) 1 gm PO BID [facility] Last Admin: 06/29/18 17:36 Dose: 1 gm - Labs Labs: 06/29/18 05:00 06/29/18 05:00 PT 12.5 SECONDS (9.4-12.5) 06/27/18 12:15 INR 1.11 06/27/18 12:15 APTT 35.4 Seconds (26.9-38.3) 06/27/18 12:15 - Constitutional Appears: Well, No Acute Distress - Head Exam Head Exam: ATRAUMATIC, NORMOCEPHALIC - Eye Exam Eye Exam: Normal appearance - ENT Exam ENT Exam: Mucous Membranes Moist - Neck Exam Neck Exam: Normal Inspection - Respiratory Exam Respiratory Exam: Clear to Ausculation Bilateral, NORMAL BREATHING PATTERN. absent: Rales, Rhonchi, Wheezes, Respiratory Distress - Cardiovascular Exam Cardiovascular Exam: REGULAR RHYTHM, +S1, +S2 - GI/Abdominal Exam GI & Abdominal Exam: Soft, Normal Bowel Sounds. absent: Distended, Firm, Guarding, Rigid, Tenderness, Organomegaly, Rebound Additional comments: ostoma intact and bag w/o blood - Extremities Exam Extremities Exam: absent: Joint Swelling, Pedal Edema - Neurological Exam Neurological Exam: Alert, Awake, Oriented x3 - Psychiatric Exam Psychiatric exam: Normal Affect, Normal Mood - Skin Skin Exam: Dry, Intact, Normal Color, Warm Assessment and Plan - Assessment and Plan (Free Text) Assessment: 67 year old Female with a PMH of cervical cancer with a recent flex sig for done for rectal bleeding showing large likely extrinsic/subepithelial mass severely compressing rectum; pathology shows necrotic inflammatory material, no cancer. Prior MRI showed 2 fistulas (colovaginal, vesicovaginal), and patient is now presenting with urinary fecal matter. s/p diverting ostomy Plan: - monitor H/H - diet as per surgery, currently on clears - management per surgical team - no plans for endoscopy at this time d/w Dr. Sumner <Harvey Sumner V - Last Filed: 06/30/18 00:46> Objective - Vital Signs/Intake and Output Vital Signs (last 24 hours): Temp Pulse Resp BP Pulse Ox 97.2 F L 93 H 18 119/82 95 06/29/18 16:29 06/29/18 17:38 06/29/18 16:29 06/29/18 17:38 06/29/18 16:29 Intake and Output: 06/29/18 06/30/18 18:59 06:59 Intake Total 1200 Output Total 400 Balance 800 - Medications Medications: Current Medications Acetaminophen (Tylenol 325mg Tab) 650 mg PO Q4 PRN PRN Reason: Fever >100.4 F Albuterol Sulfate (Albuterol 0.083% Inhal Viviane (2.5 Mg/3 Ml) Ud) 2.5 mg INH Q8H PRN PRN Reason: Shortness of Breath Last Admin: 06/29/18 08:24 Dose: 2.5 mg Alprazolam (Xanax) 0.25 mg PO BID PRN; Protocol PRN Reason: Anxiety Stop: 07/04/18 13:57 Last Admin: 06/27/18 22:25 Dose: 0.25 mg Enoxaparin Sodium (Lovenox) 40 mg SC DAILY [facility]; Protocol Last Admin: 06/29/18 09:53 Dose: 40 mg Hydromorphone HCl (Dilaudid) 1 mg IVP Q3H PRN PRN Reason: Pain, severe (8-10) Lactated Ringer's (Lactated Ringer's) 1,000 mls @ 100 mls/hr IV .Q10H [facility] Last Admin: 06/29/18 17:37 Dose: Not Given Hydromorphone HCl (Dilaudid-Hp 1 Mg/Ml Privacy Specialist) 30 mls @ 1 mls/hr IV PRN PRN; Protocol PRN Reason: LEAD RETAIL SALES ASSOCIATE PER MD ORDER Metoprolol Tartrate (Lopressor) 25 mg PO BID [facility] Last Admin: 06/29/18 17:38 Dose: 25 mg Montelukast Sodium (Singulair) 10 mg PO DAILY [facility] Last Admin: 06/29/18 09:53 Dose: 10 mg Tranexemic Acid 650 (Mg Tab (Home Med)) 0 tab PO BID [facility] Last Admin: 06/29/18 17:38 Dose: 2 tab Ondansetron HCl (Zofran Odt) 4 mg PO Q8H PRN PRN Reason: Nausea/Vomiting Ondansetron HCl (Zofran Inj) 4 mg IVP Q6H PRN PRN Reason: Nausea/Vomiting Last Admin: 06/29/18 12:14 Dose: 4 mg Pantoprazole Sodium (Protonix Ec Tab) 20 mg PO DAILY [facility] Last Admin: 06/29/18 09:53 Dose: 20 mg Sertraline HCl (Zoloft) 25 mg PO DAILY [facility] Last Admin: 06/29/18 09:54 Dose: 25 mg Sucralfate (Carafate Oral Susp) 1 gm PO BID [facility] Last Admin: 06/29/18 17:36 Dose: 1 gm - Labs Labs: 06/29/18 05:00 06/29/18 05:00 PT 12.5 SECONDS (9.4-12.5) 06/27/18 12:15 INR 1.11 06/27/18 12:15 APTT 35.4 Seconds (26.9-38.3) 06/27/18 12:15 Attending/Attestation - Attestation I have personally seen and examined this patient.: Yes I have fully participated in the care of the patient.: Yes I have reviewed all pertinent clinical information, including history, physical exam and plan: Yes Notes (Text): This patient was seen and evaluated here earlier along with the GI fellow. This is an addendum to the GI progress report dictated by the fellow. 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
[2018-06-30] MEDS ORDERED: Petrolatum Oint Foilpak (5 gm) TOP PRN (02:55)
[2018-06-30 07:03] LABS: BASO # 0.04 K/mm3 (0.0-2.0); BASO % 0.8 % (0.0-3.0); EOS # 0.1 (0.0-0.7); EOS % 1.9 % (1.5-5.0); HEMOGLOBIN 8.7 g/dL (12.0-16.0); LYMPH # 0.4 (1.2-3.4); LYMPH % 8.2 % (22.0-35.0); MEAN CELL VOLUME 95.4 fl (80.0-105.0); MEAN CORPUSCULAR HEMOGLOBIN 28.7 pg (25.0-35.0); MEAN CORPUSCULAR HGB CONC 30.1 g/dl (31.0-37.0); MEAN PLATELET VOLUME 9.3 fl (7.0-11.0); MONO # 0.5 (0.1-0.6); MONO % 9.5 % (1.0-6.0); RBC 3.03 10^6/uL (3.5-6.1); RED CELL DISTRIBUTION WIDTH 17.7 % (11.5-14.5); WHITE BLOOD COUNT 5.1 10^3/uL (4.5-11.0)
--- NOTE | 2018-06-30 07:18 | CP.PCM.PN ---
Subjective - Date & Time of Evaluation Date of Evaluation: 06/30/18 Time of Evaluation: 07:15 - Subjective Subjective: Surgery Progress Note for Dr. Greene 67F seen and evaluated at bedside this morning. No acute events overnight. Patient states she spit up 2x yesterday with liquid diet and was relieved with Zofran. States she has some abdominal soreness, pain medication helping. Patient is using IS and ambulating without difficulty. No output from ostomy currently. Denies f/c, n/d, SOB, CP, or urinary symptoms. Objective - Vital Signs/Intake and Output Vital Signs (last 24 hours): Temp Pulse Resp BP Pulse Ox 97.2 F L 93 H 18 119/82 95 06/29/18 16:29 06/29/18 17:38 06/29/18 16:29 06/29/18 17:38 06/29/18 16:29 Intake and Output: 06/30/18 06/30/18 06:59 18:59 Intake Total 1440 Output Total 400 Balance 1040 - Medications Medications: Current Medications Acetaminophen (Tylenol 325mg Tab) 650 mg PO Q4 PRN PRN Reason: Fever >100.4 F Albuterol Sulfate (Albuterol 0.083% Inhal Viviane (2.5 Mg/3 Ml) Ud) 2.5 mg INH Q8H PRN PRN Reason: Shortness of Breath Last Admin: 06/29/18 08:24 Dose: 2.5 mg Alprazolam (Xanax) 0.25 mg PO BID PRN; Protocol PRN Reason: Anxiety Stop: 07/04/18 13:57 Last Admin: 06/27/18 22:25 Dose: 0.25 mg Emollient Ointment (Vaseline Oint) 5 gm TOP Q4 PRN PRN Reason: DRY SKIN Last Admin: 06/30/18 03:03 Dose: 5 gm Enoxaparin Sodium (Lovenox) 40 mg SC DAILY [facility]; Protocol Last Admin: 06/29/18 09:53 Dose: 40 mg Hydromorphone HCl (Dilaudid) 1 mg IVP Q3H PRN PRN Reason: Pain, severe (8-10) Lactated Ringer's (Lactated Ringer's) 1,000 mls @ 100 mls/hr IV .Q10H [facility] Last Admin: 06/29/18 17:37 Dose: Not Given Hydromorphone HCl (Dilaudid-Hp 1 Mg/Ml Computer Programmer Chief) 30 mls @ 1 mls/hr IV PRN PRN; Protocol PRN Reason: MACHINIST APPRENTICE WOOD PER MD ORDER Metoprolol Tartrate (Lopressor) 25 mg PO BID [facility] Last Admin: 06/29/18 17:38 Dose: 25 mg Montelukast Sodium (Singulair) 10 mg PO DAILY [facility] Last Admin: 06/29/18 09:53 Dose: 10 mg Tranexemic Acid 650 (Mg Tab (Home Med)) 0 tab PO BID [facility] Last Admin: 06/29/18 17:38 Dose: 2 tab Ondansetron HCl (Zofran Odt) 4 mg PO Q8H PRN PRN Reason: Nausea/Vomiting Ondansetron HCl (Zofran Inj) 4 mg IVP Q6H PRN PRN Reason: Nausea/Vomiting Last Admin: 06/29/18 12:14 Dose: 4 mg Pantoprazole Sodium (Protonix Ec Tab) 20 mg PO DAILY [facility] Last Admin: 06/29/18 09:53 Dose: 20 mg Sertraline HCl (Zoloft) 25 mg PO DAILY [facility] Last Admin: 06/29/18 09:54 Dose: 25 mg Sucralfate (Carafate Oral Susp) 1 gm PO BID [facility] Last Admin: 06/29/18 17:36 Dose: 1 gm - Labs Labs: 06/29/18 05:00 06/29/18 05:00 PT 12.5 SECONDS (9.4-12.5) 06/27/18 12:15 INR 1.11 06/27/18 12:15 APTT 35.4 Seconds (26.9-38.3) 06/27/18 12:15 - Constitutional Appears: Well, Non-toxic, No Acute Distress - Head Exam Head Exam: ATRAUMATIC, NORMAL INSPECTION, NORMOCEPHALIC - Eye Exam Eye Exam: EOMI - ENT Exam ENT Exam: Mucous Membranes Moist - Respiratory Exam Respiratory Exam: NORMAL BREATHING PATTERN. absent: Respiratory Distress - Cardiovascular Exam Cardiovascular Exam: REGULAR RHYTHM. absent: Tachycardia - GI/Abdominal Exam GI & Abdominal Exam: Soft, Tenderness, Normal Bowel Sounds. 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 Ramona Ariza PGY1
[2018-06-30 07:28] LABS: ALB/GLOB RATIO 0.9 (1.1-1.8); ALBUMIN 2.6 g/dL (3.0-4.8); CALCIUM 8.3 mg/dL (8.4-10.5)
[2018-06-30] MEDS ORDERED: HYDROmorphone 0.2 mg/ml (30ml) 30 ML IV PRN (09:53)
[2018-06-30] MEDS: Sucralfate 1 gm/10 ml Oral Susp UD PO SCH ×2 (10:03→18:05)
[2018-06-30] MEDS: Pantoprazole 20 mg EC Tab PO SCH (10:04)
[2018-06-30] MEDS: TRANEXAMIC ACID 650 MG PO SCH ×2 (10:04→18:06)
[2018-06-30] MEDS: Enoxaparin 40 mg Syringe SC SCH (10:04)
[2018-06-30] MEDS ORDERED: HYDROmorphone 0.5 mg/0.5 ml ISec IVP PRN (10:48)
[2018-06-30] MEDS: HYDROmorphone 0.5 mg/0.5 ml ISec IVP PRN ×5 (13:16→22:20)
--- NOTE | 2018-06-30 15:11 | CP.PCM.PN ---
Subjective - Date & Time of Evaluation Date of Evaluation: 06/30/18 Time of Evaluation: 07:50 - Subjective Subjective: PGY5 GI Follow-up Pt seen and examined bedside Denies any abd pain has liquid and air output in ostomy bag tolerating diet ROS: 12 point ROS conducted, neg other than above Objective - Vital Signs/Intake and Output Vital Signs (last 24 hours): Temp Pulse Resp BP Pulse Ox 97.2 F L 91 H 20 152/84 H 94 L 06/30/18 07:46 06/30/18 10:03 06/30/18 07:46 06/30/18 10:03 06/30/18 07:46 Intake and Output: 06/30/18 06/30/18 06:59 18:59 Intake Total 1440 Output Total 400 Balance 1040 - Medications Medications: Current Medications Acetaminophen (Tylenol 325mg Tab) 650 mg PO Q4 PRN PRN Reason: Fever >100.4 F Albuterol Sulfate (Albuterol 0.083% Inhal Viviane (2.5 Mg/3 Ml) Ud) 2.5 mg INH Q8H PRN PRN Reason: Shortness of Breath Last Admin: 06/29/18 08:24 Dose: 2.5 mg Alprazolam (Xanax) 0.25 mg PO BID PRN; Protocol PRN Reason: Anxiety Stop: 07/04/18 13:57 Last Admin: 06/27/18 22:25 Dose: 0.25 mg Emollient Ointment (Vaseline Oint) 5 gm TOP Q4 PRN PRN Reason: DRY SKIN Last Admin: 06/30/18 03:03 Dose: 5 gm Enoxaparin Sodium (Lovenox) 40 mg SC DAILY [facility]; Protocol Last Admin: 06/30/18 10:04 Dose: 40 mg Hydromorphone HCl (Dilaudid) 0.5 mg IVP Q2H PRN PRN Reason: Pain, moderate (4-7) Last Admin: 06/30/18 13:16 Dose: 0.5 mg Lactated Ringer's (Lactated Ringer's) 1,000 mls @ 100 mls/hr IV .Q10H [facility] Last Admin: 06/29/18 17:37 Dose: Not Given Metoprolol Tartrate (Lopressor) 25 mg PO BID [facility] Last Admin: 06/30/18 10:03 Dose: 25 mg Montelukast Sodium (Singulair) 10 mg PO DAILY [facility] Last Admin: 06/30/18 10:04 Dose: 10 mg Tranexemic Acid 650 (Mg Tab (Home Med)) 0 tab PO BID [facility] Last Admin: 06/30/18 10:04 Dose: 2 tab Ondansetron HCl (Zofran Odt) 4 mg PO Q8H PRN PRN Reason: Nausea/Vomiting Ondansetron HCl (Zofran Inj) 4 mg IVP Q6H PRN PRN Reason: Nausea/Vomiting Last Admin: 06/29/18 12:14 Dose: 4 mg Pantoprazole Sodium (Protonix Ec Tab) 20 mg PO DAILY [facility] Last Admin: 06/30/18 10:04 Dose: 20 mg Sertraline HCl (Zoloft) 25 mg PO DAILY [facility] Last Admin: 06/30/18 10:05 Dose: 25 mg Sucralfate (Carafate Oral Susp) 1 gm PO BID [facility] Last Admin: 06/30/18 10:03 Dose: 1 gm - Labs Labs: 06/30/18 05:00 06/30/18 05:00 PT 12.5 SECONDS (9.4-12.5) 06/27/18 12:15 INR 1.11 06/27/18 12:15 APTT 35.4 Seconds (26.9-38.3) 06/27/18 12:15 - Constitutional Appears: Non-toxic, No Acute Distress - Head Exam Head Exam: ATRAUMATIC, NORMOCEPHALIC - Eye Exam Eye Exam: Normal appearance - ENT Exam ENT Exam: Mucous Membranes Moist, Normal Exam - Neck Exam Neck Exam: Normal Inspection - Respiratory Exam Respiratory Exam: Clear to Ausculation Bilateral, NORMAL BREATHING PATTERN. absent: Rales, Rhonchi, Wheezes, Respiratory Distress - Cardiovascular Exam Cardiovascular Exam: REGULAR RHYTHM, +S1, +S2 - GI/Abdominal Exam GI & Abdominal Exam: Soft, Normal Bowel Sounds. absent: Distended, Firm, Guarding, Rigid, Tenderness, Organomegaly, Rebound Additional comments: +ostomy w/ bag, fluid and air in bad - Extremities Exam Extremities Exam: absent: Joint Swelling, Pedal Edema - Neurological Exam Neurological Exam: Alert, Awake, Oriented x3 - Psychiatric Exam Psychiatric exam: Normal Affect, Normal Mood - Skin Skin Exam: Dry, Intact, Normal Color, Warm Assessment and Plan - Assessment and Plan (Free Text) Assessment: 67 year old Female with a PMH of cervical cancer with a recent flex sig for done for rectal bleeding showing large likely extrinsic/subepithelial mass severely compressing rectum; pathology shows necrotic inflammatory material, no cancer. Prior MRI showed 2 fistulas (colovaginal, vesicovaginal), and patient is now presenting with urinary fecal matter. 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 Sumner
[2018-06-30] MEDS: Lactated Ringer's 1,000 ML IV SCH ×2 (18:05→22:17)
[2018-07-01] MEDS: HYDROmorphone 0.5 mg/0.5 ml ISec IVP PRN ×9 (04:11→22:33)
[2018-07-01 06:44] LABS: BASO # 0.02 K/mm3 (0.0-2.0); BASO % 0.5 % (0.0-3.0); EOS # 0.2 (0.0-0.7); EOS % 4.7 % (1.5-5.0); HEMOGLOBIN 9.2 g/dL (12.0-16.0); LYMPH # 0.3 (1.2-3.4); LYMPH % 7.6 % (22.0-35.0); MEAN CELL VOLUME 94.7 fl (80.0-105.0); MEAN CORPUSCULAR HEMOGLOBIN 28.9 pg (25.0-35.0); MEAN CORPUSCULAR HGB CONC 30.6 g/dl (31.0-37.0); MEAN PLATELET VOLUME 9.6 fl (7.0-11.0); MONO # 0.4 (0.1-0.6); MONO % 10.8 % (1.0-6.0); RBC 3.18 10^6/uL (3.5-6.1); RED CELL DISTRIBUTION WIDTH 17.6 % (11.5-14.5); WHITE BLOOD COUNT 4.1 10^3/uL (4.5-11.0)
--- NOTE | 2018-07-01 06:56 | CP.PCM.PN ---
Subjective - Date & Time of Evaluation Date of Evaluation: 07/01/18 Time of Evaluation: 06:54 - Subjective Subjective: Gopal Amaro DO, PGY-1 Hematology/Oncology Progress Note for Dr. Ford Patient was seen and examined at bedside this AM. She reports continued pain overnight but is now tolerating regular diet well without nausea/vomiting. Objective - Vital Signs/Intake and Output Vital Signs (last 24 hours): Temp Pulse Resp BP Pulse Ox 97.9 F 93 H 18 152/93 H 98 06/30/18 16:23 06/30/18 16:23 06/30/18 16:23 06/30/18 16:23 06/30/18 16:23 Intake and Output: 06/30/18 07/01/18 18:59 06:59 Intake Total 1200 Output Total 600 Balance 600 - Medications Medications: Current Medications Acetaminophen (Tylenol 325mg Tab) 650 mg PO Q4 PRN PRN Reason: Fever >100.4 F Albuterol Sulfate (Albuterol 0.083% Inhal Viviane (2.5 Mg/3 Ml) Ud) 2.5 mg INH Q8H PRN PRN Reason: Shortness of Breath Last Admin: 06/29/18 08:24 Dose: 2.5 mg Alprazolam (Xanax) 0.25 mg PO BID PRN; Protocol PRN Reason: Anxiety Stop: 07/04/18 13:57 Last Admin: 06/27/18 22:25 Dose: 0.25 mg Emollient Ointment (Vaseline Oint) 5 gm TOP Q4 PRN PRN Reason: DRY SKIN Last Admin: 06/30/18 03:03 Dose: 5 gm Enoxaparin Sodium (Lovenox) 40 mg SC DAILY [facility]; Protocol Last Admin: 06/30/18 10:04 Dose: 40 mg Hydromorphone HCl (Dilaudid) 0.5 mg IVP Q2H PRN PRN Reason: Pain, moderate (4-7) Last Admin: 07/01/18 06:19 Dose: 0.5 mg Lactated Ringer's (Lactated Ringer's) 1,000 mls @ 100 mls/hr IV .Q10H [facility] Last Admin: 06/30/18 22:17 Dose: Not Given Metoprolol Tartrate (Lopressor) 25 mg PO BID [facility] Last Admin: 06/30/18 18:06 Dose: 25 mg Montelukast Sodium (Singulair) 10 mg PO DAILY [facility] Last Admin: 06/30/18 10:04 Dose: 10 mg Tranexemic Acid 650 (Mg Tab (Home Med)) 0 tab PO BID [facility] Last Admin: 06/30/18 18:06 Dose: 2 tab Ondansetron HCl (Zofran Odt) 4 mg PO Q8H PRN PRN Reason: Nausea/Vomiting Ondansetron HCl (Zofran Inj) 4 mg IVP Q6H PRN PRN Reason: Nausea/Vomiting Last Admin: 06/29/18 12:14 Dose: 4 mg Pantoprazole Sodium (Protonix Ec Tab) 20 mg PO DAILY [facility] Last Admin: 06/30/18 10:04 Dose: 20 mg Sertraline HCl (Zoloft) 25 mg PO DAILY [facility] Last Admin: 06/30/18 10:05 Dose: 25 mg Sucralfate (Carafate Oral Susp) 1 gm PO BID [facility] Last Admin: 06/30/18 18:05 Dose: 1 gm - Labs Labs: 06/30/18 05:00 06/30/18 05:00 PT 12.5 SECONDS (9.4-12.5) 06/27/18 12:15 INR 1.11 06/27/18 12:15 APTT 35.4 Seconds (26.9-38.3) 06/27/18 12:15 - Constitutional Appears: Non-toxic, No Acute Distress - Head Exam Head Exam: ATRAUMATIC, NORMOCEPHALIC - Eye Exam Eye Exam: EOMI, PERRL - ENT Exam ENT Exam: Mucous Membranes Moist - Neck Exam Neck Exam: Full ROM, Normal Inspection - Respiratory Exam Respiratory Exam: Clear to Ausculation Bilateral, NORMAL BREATHING PATTERN. absent: Accessory Muscle Use, Rales, Rhonchi, Wheezes, Respiratory Distress - Cardiovascular Exam Cardiovascular Exam: REGULAR RHYTHM, RRR, +S1, +S2. absent: Gallop, Rubs, Murmur - GI/Abdominal Exam GI & Abdominal Exam: Soft, Normal Bowel Sounds. absent: Guarding, Tenderness Additional comments: ostomy site pink, patent, midline incision, clean, dry, intact - Extremities Exam Extremities Exam: Full ROM, Normal Inspection. 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 Patient is now s/p LLQ end colostomy placement with mucus fi stula POD 3. 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 Patient is now s/p LLQ end colostomy placement with mucus fistula POD 3 Would recommend swtiching to MS contin 30 mg q12h for pain coverage, IV dilaudid only PRN for severe pain Encouraged patient to work with PT F/u PT recs for [facility] vs home with services prior to discharge Normocytic Anemia Likely 2/2 anemia of chronic disease, iron studies completed on prior visits were consistent with anemia of chronic disease H/H stable Continue to monitor Depression/anxiety Continue home zoloft/PRN xanax CKD BUN/Cr stable, appear to be at baseline Continue to monitor UOP, renal function parameters CAD status post stent (x4) Continue current medications Last known LVEF 62% DVT/GI PPX: Lovenox/protonix DNI but otherwise full code HHD Monitor on med/surg Patient seen, examined with, and plan discussed with my attending Dr. Liliana Amaro, RegineO. IM Resident PGY-1
[2018-07-01 07:05] LABS: ALB/GLOB RATIO 0.8 (1.1-1.8); ALBUMIN 2.6 g/dL (3.0-4.8); ALT/SGPT < 6 U/L (7-56); AST/SGOT 26 U/L (14-36); BLOOD UREA NITROGEN 14 mg/dL (7-21); CALCIUM 8.3 mg/dL (8.4-10.5); GFR NON-AFRICAN AMERICAN 45
[2018-07-01] MEDS: Lactated Ringer's 1,000 ML IV SCH (08:04)
--- NOTE | 2018-07-01 08:18 | CP.PCM.PN ---
<Topher Amato - Last Filed: 07/01/18 14:59> Subjective - Date & Time of Evaluation Date of Evaluation: 07/01/18 Time of Evaluation: 07:15 - Subjective Subjective: Topher Amato PGY2 GI Progress Note for Dr. Sumner Patient was seen and examined at bedside. She is tolerating her diet, and has air in the colostomy bag. She denies any n/v or abdominal pain. There were no acute overnight events. Surgery notes were reviewed. Objective - Vital Signs/Intake and Output Vital Signs (last 24 hours): Temp Pulse Resp BP Pulse Ox 97.8 F 80 20 154/90 H 97 07/01/18 07:29 07/01/18 07:29 07/01/18 07:29 07/01/18 07:29 07/01/18 07:29 Intake and Output: 07/01/18 07/01/18 06:59 18:59 Intake Total 1440 Output Total 600 Balance 840 - Medications Medications: Current Medications Acetaminophen (Tylenol 325mg Tab) 650 mg PO Q4 PRN PRN Reason: Fever >100.4 F Albuterol Sulfate (Albuterol 0.083% Inhal Viviane (2.5 Mg/3 Ml) Ud) 2.5 mg INH Q8H PRN PRN Reason: Shortness of Breath Last Admin: 06/29/18 08:24 Dose: 2.5 mg Alprazolam (Xanax) 0.25 mg PO BID PRN; Protocol PRN Reason: Anxiety Stop: 07/04/18 13:57 Last Admin: 06/27/18 22:25 Dose: 0.25 mg Emollient Ointment (Vaseline Oint) 5 gm TOP Q4 PRN PRN Reason: DRY SKIN Last Admin: 06/30/18 03:03 Dose: 5 gm Enoxaparin Sodium (Lovenox) 40 mg SC DAILY [facility]; Protocol Last Admin: 06/30/18 10:04 Dose: 40 mg Hydromorphone HCl (Dilaudid) 0.5 mg IVP Q2H PRN PRN Reason: Pain, moderate (4-7) Last Admin: 07/01/18 08:07 Dose: 0.5 mg Lactated Ringer's (Lactated Ringer's) 1,000 mls @ 100 mls/hr IV .Q10H [facility] Last Admin: 07/01/18 08:04 Dose: Not Given Metoprolol Tartrate (Lopressor) 25 mg PO BID [facility] Last Admin: 06/30/18 18:06 Dose: 25 mg Montelukast Sodium (Singulair) 10 mg PO DAILY [facility] Last Admin: 06/30/18 10:04 Dose: 10 mg Tranexemic Acid 650 (Mg Tab (Home Med)) 0 tab PO BID [facility] Last Admin: 06/30/18 18:06 Dose: 2 tab Ondansetron HCl (Zofran Odt) 4 mg PO Q8H PRN PRN Reason: Nausea/Vomiting Ondansetron HCl (Zofran Inj) 4 mg IVP Q6H PRN PRN Reason: Nausea/Vomiting Last Admin: 06/29/18 12:14 Dose: 4 mg Pantoprazole Sodium (Protonix Ec Tab) 20 mg PO DAILY [facility] Last Admin: 06/30/18 10:04 Dose: 20 mg Sertraline HCl (Zoloft) 25 mg PO DAILY [facility] Last Admin: 06/30/18 10:05 Dose: 25 mg Sucralfate (Carafate Oral Susp) 1 gm PO BID [facility] Last Admin: 06/30/18 18:05 Dose: 1 gm - Labs Labs: 07/01/18 06:00 07/01/18 06:00 PT 12.5 SECONDS (9.4-12.5) 06/27/18 12:15 INR 1.11 06/27/18 12:15 APTT 35.4 Seconds (26.9-38.3) 06/27/18 12:15 - Constitutional Appears: Well, Non-toxic, No Acute Distress - Head Exam Head Exam: ATRAUMATIC, NORMAL INSPECTION - Eye Exam Eye Exam: EOMI, Normal appearance - ENT Exam ENT Exam: Mucous Membranes Moist, Normal Exam - Neck Exam Neck Exam: Full ROM, Normal Inspection - Respiratory Exam Respiratory Exam: NORMAL BREATHING PATTERN. absent: Respiratory Distress - Cardiovascular Exam Cardiovascular Exam: RRR, +S1, +S2 - GI/Abdominal Exam GI & Abdominal Exam: Soft. absent: Distended, Tenderness Additional comments: colostomy bag w/ air in it - Exam Additional comments: b/l nephrostomy tubes - Extremities Exam Extremities Exam: Full ROM. absent: Pedal Edema - Neurological Exam Neurological Exam: Alert, Awake - Skin Skin Exam: Normal Color, Warm Assessment and Plan - Assessment and Plan (Free Text) Assessment: 67 year old Female with a PMH of cervical cancer with a recent flex sig for done for rectal bleeding showing large likely extrinsic/subepithelial mass severely compressing rectum; pathology shows necrotic inflammatory material, no cancer. Prior MRI showed 2 fistulas (colovaginal, vesicovaginal), and patient is now presenting with urinary fecal matter. 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 Sumner This note is note finalized until signed Case was reviewed and discussed with Dr. Sumner <Harvey Sumner V - Last Filed: 07/01/18 20:55> Objective - Vital Signs/Intake and Output Vital Signs (last 24 hours): Temp Pulse Resp BP Pulse Ox 98 F 98 H 18 123/88 98 07/01/18 17:07 07/01/18 17:49 07/01/18 17:07 07/01/18 17:49 07/01/18 17:07 - Medications Medications: Current Medications Acetaminophen (Tylenol 325mg Tab) 650 mg PO Q4 PRN PRN Reason: Fever >100.4 F Albuterol Sulfate (Albuterol 0.083% Inhal Viviane (2.5 Mg/3 Ml) Ud) 2.5 mg INH Q8H PRN PRN Reason: Shortness of Breath Last Admin: 06/29/18 08:24 Dose: 2.5 mg Alprazolam (Xanax) 0.25 mg PO BID PRN; Protocol PRN Reason: Anxiety Stop: 07/04/18 13:57 Last Admin: 07/01/18 10:03 Dose: 0.25 mg Emollient Ointment (Vaseline Oint) 5 gm TOP Q4 PRN PRN Reason: DRY SKIN Last Admin: 06/30/18 03:03 Dose: 5 gm Enoxaparin Sodium (Lovenox) 40 mg SC DAILY [facility]; Protocol Last Admin: 07/01/18 10:05 Dose: 40 mg Fentanyl (Duragesic) 1 patch TD Q72H [facility] Last Admin: 07/01/18 12:50 Dose: 1 patch Hydromorphone HCl (Dilaudid) 0.5 mg IVP Q2H PRN PRN Reason: Pain, severe (8-10) Last Admin: 07/01/18 20:48 Dose: 0.5 mg Metoprolol Tartrate (Lopressor) 25 mg PO BID [facility] Last Admin: 07/01/18 17:49 Dose: 25 mg Montelukast Sodium (Singulair) 10 mg PO DAILY [facility] Last Admin: 07/01/18 10:03 Dose: 10 mg Morphine Sulfate (Morphine Extended Release Tab) 30 mg PO Q12 [facility] Last Admin: 07/01/18 10:04 Dose: 30 mg Tranexemic Acid 650 (Mg Tab (Home Med)) 0 tab PO BID [facility] Last Admin: 07/01/18 18:30 Dose: 2 tab Ondansetron HCl (Zofran Odt) 4 mg PO Q8H PRN PRN Reason: Nausea/Vomiting Ondansetron HCl (Zofran Inj) 4 mg IVP Q6H PRN PRN Reason: Nausea/Vomiting Last Admin: 06/29/18 12:14 Dose: 4 mg Pantoprazole Sodium (Protonix Ec Tab) 20 mg PO DAILY [facility] Last Admin: 07/01/18 10:05 Dose: 20 mg Sertraline HCl (Zoloft) 25 mg PO DAILY [facility] Last Admin: 07/01/18 10:05 Dose: 25 mg Sucralfate (Carafate Oral Susp) 1 gm PO BID [facility] Last Admin: 07/01/18 17:49 Dose: 1 gm - Labs Labs: 07/01/18 06:00 07/01/18 06:00 PT 12.5 SECONDS (9.4-12.5) 06/27/18 12:15 INR 1.11 06/27/18 12:15 APTT 35.4 Seconds (26.9-38.3) 06/27/18 12:15 Attending/Attestation - Attestation I have personally seen and examined this patient.: Yes I have fully participated in the care of the patient.: Yes I have reviewed all pertinent clinical information, including history, physical exam and plan: Yes Notes (Text): This patient was seen and evaluated along with the resident earlier today. This is an addendum to the GI progress report dictated by the resident. Patient is tolerating the diet. No colostomy stool output that is he had in the colostomy bag. Still has some rectal discharge. Continue supportive care as per oncology 07/01/18 20:54
[2018-07-01] MEDS ORDERED: Lidocaine 5% Patch TD PRN (09:04)
--- NOTE | 2018-07-01 09:08 | CP.PCM.PN ---
Subjective - Date & Time of Evaluation Date of Evaluation: 07/01/18 Time of Evaluation: 09:02 - Subjective Subjective: Surgery Progress Note for Dr. Greene 67F seen and evaluated at bedside this morning. No acute events overnight. Patient says she has some abdominal soreness, pain medication helping. Patient is using IS and ambulating without difficulty. Denies f/c, n/d, SOB, CP, or urinary symptoms. Objective - Vital Signs/Intake and Output Vital Signs (last 24 hours): Temp Pulse Resp BP Pulse Ox 97.8 F 80 20 154/90 H 97 07/01/18 07:29 07/01/18 07:29 07/01/18 07:29 07/01/18 07:29 07/01/18 07:29 Intake and Output: 07/01/18 07/01/18 06:59 18:59 Intake Total 1440 Output Total 600 Balance 840 - Medications Medications: Current Medications Acetaminophen (Tylenol 325mg Tab) 650 mg PO Q4 PRN PRN Reason: Fever >100.4 F Albuterol Sulfate (Albuterol 0.083% Inhal Viviane (2.5 Mg/3 Ml) Ud) 2.5 mg INH Q8H PRN PRN Reason: Shortness of Breath Last Admin: 06/29/18 08:24 Dose: 2.5 mg Alprazolam (Xanax) 0.25 mg PO BID PRN; Protocol PRN Reason: Anxiety Stop: 07/04/18 13:57 Last Admin: 06/27/18 22:25 Dose: 0.25 mg Emollient Ointment (Vaseline Oint) 5 gm TOP Q4 PRN PRN Reason: DRY SKIN Last Admin: 06/30/18 03:03 Dose: 5 gm Enoxaparin Sodium (Lovenox) 40 mg SC DAILY [facility]; Protocol Last Admin: 06/30/18 10:04 Dose: 40 mg Hydromorphone HCl (Dilaudid) 0.5 mg IVP Q2H PRN PRN Reason: Pain, moderate (4-7) Last Admin: 07/01/18 08:07 Dose: 0.5 mg Lactated Ringer's (Lactated Ringer's) 1,000 mls @ 100 mls/hr IV .Q10H [facility] Last Admin: 07/01/18 08:04 Dose: Not Given Metoprolol Tartrate (Lopressor) 25 mg PO BID [facility] Last Admin: 06/30/18 18:06 Dose: 25 mg Montelukast Sodium (Singulair) 10 mg PO DAILY [facility] Last Admin: 06/30/18 10:04 Dose: 10 mg Tranexemic Acid 650 (Mg Tab (Home Med)) 0 tab PO BID [facility] Last Admin: 06/30/18 18:06 Dose: 2 tab Ondansetron HCl (Zofran Odt) 4 mg PO Q8H PRN PRN Reason: Nausea/Vomiting Ondansetron HCl (Zofran Inj) 4 mg IVP Q6H PRN PRN Reason: Nausea/Vomiting Last Admin: 06/29/18 12:14 Dose: 4 mg Pantoprazole Sodium (Protonix Ec Tab) 20 mg PO DAILY [facility] Last Admin: 06/30/18 10:04 Dose: 20 mg Sertraline HCl (Zoloft) 25 mg PO DAILY [facility] Last Admin: 06/30/18 10:05 Dose: 25 mg Sucralfate (Carafate Oral Susp) 1 gm PO BID [facility] Last Admin: 06/30/18 18:05 Dose: 1 gm - Labs Labs: 07/01/18 06:00 07/01/18 06:00 PT 12.5 SECONDS (9.4-12.5) 06/27/18 12:15 INR 1.11 06/27/18 12:15 APTT 35.4 Seconds (26.9-38.3) 06/27/18 12:15 - Additional Findings Additional findings: - Constitutional Appears: Well, Non-toxic, No Acute Distress - Head Exam Head Exam: ATRAUMATIC, NORMAL INSPECTION, NORMOCEPHALIC - Eye Exam Eye Exam: EOMI - ENT Exam ENT Exam: Mucous Membranes Moist - Respiratory Exam Respiratory Exam: NORMAL BREATHING PATTERN. absent: Respiratory Distress - Cardiovascular Exam Cardiovascular Exam: REGULAR RHYTHM. absent: Tachycardia - GI/Abdominal Exam GI & Abdominal Exam: Soft, Tenderness, Normal Bowel Sounds. 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 Greene in office AE hose - patient refusing DVT ppx D/w Dr. Ramona Sandhu PGY1
[2018-07-01] MEDS ORDERED: Propofol 10 mg/ml Inj (20 ML) ONE (09:28)
[2018-07-01] MEDS ORDERED: Midazolam 2 MG/2 ML VIAL ONE (09:29)
[2018-07-01] MEDS: TRANEXAMIC ACID 650 MG PO SCH ×2 (10:03→18:30)
[2018-07-01] MEDS: Morphine 30 mg SR Tab PO SCH ×2 (10:04→21:29)
[2018-07-01] MEDS: Enoxaparin 40 mg Syringe SC SCH (10:05)
[2018-07-01] MEDS: Pantoprazole 20 mg EC Tab PO SCH (10:05)
[2018-07-01] MEDS: Sucralfate 1 gm/10 ml Oral Susp UD PO SCH ×2 (10:06→17:49)
--- NOTE | 2018-07-01 18:14 | OP ---
PROCEDURE DATE: 06/28/2018 PREOPERATIVE DIAGNOSES: Colovesical fistula and colovaginal fistula. POSTOPERATIVE DIAGNOSES: Colovesical fistula and frozen pelvis. PROCEDURE PERFORMED: End-sigmoid colostomy and mucous fistula. SURGEON: Tony Greene MD. FOOD SCIENTIST: Dr. Kwok. ANESTHESIOLOGIST: As per operative record. ANESTHESIA: General endotracheal anesthesia. ESTIMATED BLOOD LOSS: Minimal. SPECIMEN: None. INDICATIONS: The patient is a 67-year-old female with history of previous cancer, who recently was admitted for abdominal discomfort, discharged home as the patient was refusing any intervention at that time and now came back with a leak of stool from the vagina. The patient had previous history of recurrent UTIs. DESCRIPTION OF PROCEDURE: The patient was brought to the operating room and placed on operating table in supine position. The patient was connected to EKG, blood pressure, and pulse oximetry monitors. The patient then underwent general endotracheal anesthesia and was prepped and draped in the usual sterile fashion. First, a standard time-out procedure took place and everybody in the room agreed as to the patient's identity, diagnosis, and procedure to be performed. Using a #15 blade, an incision was made in a vertical fashion starting from just above the umbilicus, down to the symphysis pubis. Carefully, the dissection was done through the skin into the subcutaneous fascia and access to the abdominal cavity was obtained. Once this was accomplished, carefully evaluated the abdominal cavity. It appeared that there was no significant disease noted in any portion of the abdomen. There was no palpable lesion on the liver or any other organs in the upper abdomen. The pelvis appeared to be frozen with rectosigmoid stuck to the pelvis. This is most likely secondary to the previous radiation. After carefully mobilizing the sigmoid colon towards the descending colon and gaining adequate length of bowel, we then proceeded with PRANAY stapler, cutting of the sigmoid colon and bringing out the mid sigmoid end colostomy and distal mucous fistula. The abdominal cavity was copiously irrigated and there was excellent hemostasis. We then proceeded with creating an opening for the colostomy in the left lower quadrant of the line between the umbilicus and anterior iliac spine. Once an opening was created, we then brought up the sigmoid colon through that and carefully attached it to the fascia with multiple 3-0 silk stitches. At this point, we then proceeded with starting to close the abdominal cavity using #1 PDS stitches in a running fashion. The distal mucous fistula was then brought down through the lower portion of the incision in the pubic area and secured to the edges of the fascia as well. Now the incision was completely closed using #1 PDS in a running fashion. The subcutaneous tissues were copiously irrigated and closed using 3-0 Vicryl and the skin was closed using surgical luis. The wound was now covered. The mucous fistula was wrapped with gauze and sterile dressing was applied to this portion of the wound. Now, returned to colostomy, which is too matured. The suture line was resected and the edges of the colon were attached to the edges of the skin using multiple 3-0 Vicryl stitches. The colostomy appeared to be perfectly viable. A colostomy appliance was attached to the skin. The patient was then awakened and extubated and transferred to the recovery room for further observation. Tony Greene MD
[2018-07-01] MEDS ORDERED: DiphenhydrAMINE 50 mg/ml Inj IVP STA (22:46)
[2018-07-02] MEDS: HYDROmorphone 0.5 mg/0.5 ml ISec IVP PRN ×6 (00:33→21:57)
[2018-07-02] MEDS ORDERED: DiphenhydrAMINE 50 mg/ml Inj IVP PRN (06:55)
[2018-07-02 06:57] LABS: BASO # 0.03 K/mm3 (0.0-2.0); BASO % 0.9 % (0.0-3.0); EOS # 0.2 (0.0-0.7); HEMOGLOBIN 9.2 g/dL (12.0-16.0); LYMPH # 0.5 (1.2-3.4); LYMPH % 14.9 % (22.0-35.0); MEAN CELL VOLUME 96.3 fl (80.0-105.0); MEAN CORPUSCULAR HEMOGLOBIN 28.6 pg (25.0-35.0); MEAN CORPUSCULAR HGB CONC 29.7 g/dl (31.0-37.0); MEAN PLATELET VOLUME 9.7 fl (7.0-11.0); MONO # 0.5 (0.1-0.6); MONO % 14.9 % (1.0-6.0); RBC 3.22 10^6/uL (3.5-6.1); RED CELL DISTRIBUTION WIDTH 17.5 % (11.5-14.5); WHITE BLOOD COUNT 3.2 10^3/uL (4.5-11.0)
[2018-07-02 07:35] LABS: ALB/GLOB RATIO 0.7 (1.1-1.8); ALBUMIN 2.4 g/dL (3.0-4.8); CALCIUM 8.4 mg/dL (8.4-10.5)
--- NOTE | 2018-07-02 07:47 | CP.PCM.PN ---
Subjective - Date & Time of Evaluation Date of Evaluation: 07/02/18 Time of Evaluation: 07:43 - Subjective Subjective: Surgery Progress Note for Dr. Greene 67F seen and evaluated at bedside this morning. No acute events overnight. Patient says she has some abdominal soreness, pain medication helping. Patient is using IS and ambulating without difficulty. Denies f/c, n/d, SOB, CP, or urinary symptoms. Objective - Vital Signs/Intake and Output Vital Signs (last 24 hours): Temp Pulse Resp BP Pulse Ox 98 F 98 H 18 123/88 98 07/01/18 17:07 07/01/18 17:49 07/01/18 17:07 07/01/18 17:49 07/01/18 17:07 Intake and Output: 07/02/18 07/02/18 06:59 18:59 Intake Total 1920 Output Total 550 Balance 1370 - Medications Medications: Current Medications Acetaminophen (Tylenol 325mg Tab) 650 mg PO Q4 PRN PRN Reason: Fever >100.4 F Albuterol Sulfate (Albuterol 0.083% Inhal Viviane (2.5 Mg/3 Ml) Ud) 2.5 mg INH Q8H PRN PRN Reason: Shortness of Breath Last Admin: 06/29/18 08:24 Dose: 2.5 mg Alprazolam (Xanax) 0.25 mg PO BID PRN; Protocol PRN Reason: Anxiety Stop: 07/04/18 13:57 Last Admin: 07/01/18 21:29 Dose: 0.25 mg Diphenhydramine HCl (Benadryl) 25 mg IVP HS PRN PRN Reason: Sleep Emollient Ointment (Vaseline Oint) 5 gm TOP Q4 PRN PRN Reason: DRY SKIN Last Admin: 06/30/18 03:03 Dose: 5 gm Enoxaparin Sodium (Lovenox) 40 mg SC DAILY [facility]; Protocol Last Admin: 07/01/18 10:05 Dose: 40 mg Fentanyl (Duragesic) 1 patch TD Q72H [facility] Last Admin: 07/01/18 12:50 Dose: 1 patch Hydromorphone HCl (Dilaudid) 0.5 mg IVP Q2H PRN PRN Reason: Pain, severe (8-10) Last Admin: 07/02/18 06:00 Dose: 0.5 mg Metoprolol Tartrate (Lopressor) 25 mg PO BID [facility] Last Admin: 07/01/18 17:49 Dose: 25 mg Montelukast Sodium (Singulair) 10 mg PO DAILY [facility] Last Admin: 07/01/18 10:03 Dose: 10 mg Morphine Sulfate (Morphine Extended Release Tab) 30 mg PO Q12 [facility] Last Admin: 07/01/18 21:29 Dose: 30 mg Tranexemic Acid 650 (Mg Tab (Home Med)) 0 tab PO BID [facility] Last Admin: 07/01/18 18:30 Dose: 2 tab Ondansetron HCl (Zofran Odt) 4 mg PO Q8H PRN PRN Reason: Nausea/Vomiting Ondansetron HCl (Zofran Inj) 4 mg IVP Q6H PRN PRN Reason: Nausea/Vomiting Last Admin: 06/29/18 12:14 Dose: 4 mg Pantoprazole Sodium (Protonix Ec Tab) 20 mg PO DAILY [facility] Last Admin: 07/01/18 10:05 Dose: 20 mg Sertraline HCl (Zoloft) 25 mg PO DAILY [facility] Last Admin: 07/01/18 10:05 Dose: 25 mg Sucralfate (Carafate Oral Susp) 1 gm PO BID [facility] Last Admin: 07/01/18 17:49 Dose: 1 gm - Labs Labs: 07/02/18 06:00 07/02/18 06:00 PT 12.5 SECONDS (9.4-12.5) 06/27/18 12:15 INR 1.11 06/27/18 12:15 APTT 35.4 Seconds (26.9-38.3) 06/27/18 12:15 - Additional Findings Additional findings: - Constitutional Appears: Well, Non-toxic, No Acute Distress - Head Exam Head Exam: ATRAUMATIC, NORMAL INSPECTION, NORMOCEPHALIC - Eye Exam Eye Exam: EOMI - ENT Exam ENT Exam: Mucous Membranes Moist - Respiratory Exam Respiratory Exam: NORMAL BREATHING PATTERN. absent: Respiratory Distress - Cardiovascular Exam Cardiovascular Exam: REGULAR RHYTHM. absent: Tachycardia - GI/Abdominal Exam GI & Abdominal Exam: Soft, Tenderness, Normal Bowel Sounds. absent: Distended, Rebound Additional comments: Stoma pink and patent, not currently productive Midline incision dressing c/d/i - Neurological Exam Neurological Exam: Alert, Awake, Oriented x3 - Psychiatric Exam Psychiatric exam: Agitated - Skin Assessment and Plan - Assessment and Plan (Free Text) Assessment: 67F w/ colovesicular fistula and vaginovesicular fistula s/p diverting end colostomy w/ mucous fistula POD4 Plan: Regular Diet; continue Encourage OOBTC and ambulation Encourage IS use Bowel function Pain management Continue metal clamp on mucous fistula until F/U with Dr. Greene in office AE hose - patient refusing DVT ppx D/w Dr. Ramona Sandhu PGY1
[2018-07-02 08:13] VITALS: RESP 20
--- NOTE | 2018-07-02 09:00 | CP.PCM.PN ---
Subjective - Date & Time of Evaluation Date of Evaluation: 07/02/18 Time of Evaluation: 07:00 - Subjective Subjective: Gopal Amaro DO, PGY-1 Hematology/Oncology Progress Note for Dr. Ford Patient was seen and examined at bedside this AM. She reports continued pain overnight and has been requesting dilaudid q2h throughout last night despite starting fentanyl patch and MS contin. She has been refusing PT. She has second colostomy education video scheduled for today. Objective - Vital Signs/Intake and Output Vital Signs (last 24 hours): Temp Pulse Resp BP Pulse Ox 97.4 F L 83 20 143/91 H 98 07/02/18 08:13 07/02/18 08:13 07/02/18 08:13 07/02/18 08:13 07/02/18 08:13 Intake and Output: 07/02/18 07/02/18 06:59 18:59 Intake Total 1920 Output Total 550 450 Balance 1370 -450 - Medications Medications: Current Medications Acetaminophen (Tylenol 325mg Tab) 650 mg PO Q4 PRN PRN Reason: Fever >100.4 F Albuterol Sulfate (Albuterol 0.083% Inhal Viviane (2.5 Mg/3 Ml) Ud) 2.5 mg INH Q8H PRN PRN Reason: Shortness of Breath Last Admin: 06/29/18 08:24 Dose: 2.5 mg Alprazolam (Xanax) 0.25 mg PO BID PRN; Protocol PRN Reason: Anxiety Stop: 07/04/18 13:57 Last Admin: 07/01/18 21:29 Dose: 0.25 mg Diphenhydramine HCl (Benadryl) 25 mg IVP HS PRN PRN Reason: Sleep Emollient Ointment (Vaseline Oint) 5 gm TOP Q4 PRN PRN Reason: DRY SKIN Last Admin: 06/30/18 03:03 Dose: 5 gm Enoxaparin Sodium (Lovenox) 40 mg SC DAILY [facility]; Protocol Last Admin: 07/01/18 10:05 Dose: 40 mg Fentanyl (Duragesic) 1 patch TD Q72H [facility] Last Admin: 07/01/18 12:50 Dose: 1 patch Hydromorphone HCl (Dilaudid) 0.5 mg IVP Q2H PRN PRN Reason: Pain, severe (8-10) Last Admin: 07/02/18 08:05 Dose: 0.5 mg Metoprolol Tartrate (Lopressor) 25 mg PO BID [facility] Last Admin: 07/01/18 17:49 Dose: 25 mg Montelukast Sodium (Singulair) 10 mg PO DAILY [facility] Last Admin: 07/01/18 10:03 Dose: 10 mg Morphine Sulfate (Morphine Extended Release Tab) 30 mg PO Q12 [facility] Last Admin: 07/01/18 21:29 Dose: 30 mg Tranexemic Acid 650 (Mg Tab (Home Med)) 0 tab PO BID [facility] Last Admin: 07/01/18 18:30 Dose: 2 tab Ondansetron HCl (Zofran Odt) 4 mg PO Q8H PRN PRN Reason: Nausea/Vomiting Ondansetron HCl (Zofran Inj) 4 mg IVP Q6H PRN PRN Reason: Nausea/Vomiting Last Admin: 06/29/18 12:14 Dose: 4 mg Pantoprazole Sodium (Protonix Ec Tab) 20 mg PO DAILY [facility] Last Admin: 07/01/18 10:05 Dose: 20 mg Sertraline HCl (Zoloft) 25 mg PO DAILY [facility] Last Admin: 07/01/18 10:05 Dose: 25 mg Sucralfate (Carafate Oral Susp) 1 gm PO BID [facility] Last Admin: 07/01/18 17:49 Dose: 1 gm - Labs Labs: 07/02/18 06:00 07/02/18 06:00 PT 12.5 SECONDS (9.4-12.5) 06/27/18 12:15 INR 1.11 06/27/18 12:15 APTT 35.4 Seconds (26.9-38.3) 06/27/18 12:15 - Constitutional Appears: No Acute Distress, Unkempt, Agitated - Head Exam Head Exam: ATRAUMATIC, NORMOCEPHALIC - Eye Exam Eye Exam: EOMI, PERRL - ENT Exam ENT Exam: Mucous Membranes Moist - Neck Exam Neck Exam: Full ROM, Normal Inspection - Respiratory Exam Respiratory Exam: Clear to Ausculation Bilateral, NORMAL BREATHING PATTERN. absent: Accessory Muscle Use, Rales, Rhonchi, Wheezes, Respiratory Distress - Cardiovascular Exam Cardiovascular Exam: REGULAR RHYTHM, RRR, +S1, +S2. 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 Patient is now s/p LLQ end colostomy placement with mucus fistula POD 4. Plan: [place]-vaginal fistula Multiple fistulas most likely 2/2 radiation cystitis Patient is now s/p LLQ end colostomy placement with mucus fistula POD 4 Continue MS contin q12h Will start oxycodone IR 30 mg q6h to attempt to wean off IV dilaudid Patient prefers to go home with ostomy clamp and f/u with Dr. Greene outpatient Will need instructions and wound changing supplies prior to discharge Normocytic Anemia Likely 2/2 anemia of chronic disease, iron studies completed on prior visits were consistent with anemia of chronic disease H/H stable Continue to monitor Depression/anxiety Continue home zoloft/PRN xanax CKD BUN/Cr stable, appear to be at baseline Continue to monitor UOP, renal function parameters CAD status post stent (x4) Continue current medications Last known LVEF 62% DVT/GI PPX: Lovenox/protonix DNI but otherwise full code HHD Monitor on med/surg Patient seen, examined with, and plan discussed with my attending Dr. Liliana Amaro D.O. IM Resident PGY-1
--- NOTE | 2018-07-02 09:00 | CP.PCM.PN ---
<Toña Terry - Last Filed: 07/02/18 10:59> Subjective - Date & Time of Evaluation Date of Evaluation: 07/02/18 Time of Evaluation: 08:51 - Subjective Subjective: Toña Terry, PGY2, GI Progress Note for Dr Sumner: Patient seen and examined at bedside. No acute events overnight. Patient reports pain at suture site, controlled with dilaudid. Reports small brown, green colored stool and air in colostomy bag overnight. Patient tolerating soft regular diet well. Denies nausea, vomiting, fevers, chill, fecal leakage. States that she has been watching videos for colostomy care, and has her second video session scheduled today. Objective - Vital Signs/Intake and Output Vital Signs (last 24 hours): Temp Pulse Resp BP Pulse Ox 97.4 F L 83 20 143/91 H 98 07/02/18 08:13 07/02/18 08:13 07/02/18 08:13 07/02/18 08:13 07/02/18 08:13 Intake and Output: 07/02/18 07/02/18 06:59 18:59 Intake Total 1920 Output Total 550 450 Balance 1370 -450 - Medications Medications: Current Medications Acetaminophen (Tylenol 325mg Tab) 650 mg PO Q4 PRN PRN Reason: Fever >100.4 F Albuterol Sulfate (Albuterol 0.083% Inhal Viviane (2.5 Mg/3 Ml) Ud) 2.5 mg INH Q8H PRN PRN Reason: Shortness of Breath Last Admin: 06/29/18 08:24 Dose: 2.5 mg Alprazolam (Xanax) 0.25 mg PO BID PRN; Protocol PRN Reason: Anxiety Stop: 07/04/18 13:57 Last Admin: 07/01/18 21:29 Dose: 0.25 mg Diphenhydramine HCl (Benadryl) 25 mg IVP HS PRN PRN Reason: Sleep Emollient Ointment (Vaseline Oint) 5 gm TOP Q4 PRN PRN Reason: DRY SKIN Last Admin: 06/30/18 03:03 Dose: 5 gm Enoxaparin Sodium (Lovenox) 40 mg SC DAILY [facility]; Protocol Last Admin: 07/01/18 10:05 Dose: 40 mg Fentanyl (Duragesic) 1 patch TD Q72H [facility] Last Admin: 07/01/18 12:50 Dose: 1 patch Hydromorphone HCl (Dilaudid) 0.5 mg IVP Q2H PRN PRN Reason: Pain, severe (8-10) Last Admin: 07/02/18 08:05 Dose: 0.5 mg Metoprolol Tartrate (Lopressor) 25 mg PO BID [facility] Last Admin: 07/01/18 17:49 Dose: 25 mg Montelukast Sodium (Singulair) 10 mg PO DAILY [facility] Last Admin: 07/01/18 10:03 Dose: 10 mg Morphine Sulfate (Morphine Extended Release Tab) 30 mg PO Q12 [facility] Last Admin: 07/01/18 21:29 Dose: 30 mg Tranexemic Acid 650 (Mg Tab (Home Med)) 0 tab PO BID [facility] Last Admin: 07/01/18 18:30 Dose: 2 tab Ondansetron HCl (Zofran Odt) 4 mg PO Q8H PRN PRN Reason: Nausea/Vomiting Ondansetron HCl (Zofran Inj) 4 mg IVP Q6H PRN PRN Reason: Nausea/Vomiting Last Admin: 06/29/18 12:14 Dose: 4 mg Pantoprazole Sodium (Protonix Ec Tab) 20 mg PO DAILY [facility] Last Admin: 07/01/18 10:05 Dose: 20 mg Sertraline HCl (Zoloft) 25 mg PO DAILY [facility] Last Admin: 07/01/18 10:05 Dose: 25 mg Sucralfate (Carafate Oral Susp) 1 gm PO BID [facility] Last Admin: 07/01/18 17:49 Dose: 1 gm - Labs Labs: 07/02/18 06:00 07/02/18 06:00 PT 12.5 SECONDS (9.4-12.5) 06/27/18 12:15 INR 1.11 06/27/18 12:15 APTT 35.4 Seconds (26.9-38.3) 06/27/18 12:15 - Additional Findings Additional findings: - Constitutional Appears: Well, Non-toxic, No Acute Distress - Head Exam Head Exam: ATRAUMATIC, NORMAL INSPECTION - Eye Exam Eye Exam: EOMI, Normal appearance - ENT Exam ENT Exam: Mucous Membranes Moist, Normal Exam - Neck Exam Neck Exam: Full ROM, Normal Inspection - Respiratory Exam Respiratory Exam: NORMAL BREATHING PATTERN. absent: Respiratory Distress - Cardiovascular Exam Cardiovascular Exam: RRR, +S1, +S2 - GI/Abdominal Exam GI & Abdominal Exam: Soft. normal bowel sounds. absent: Distended, Tenderness Additional comments: colostomy bag w/ air, small brown/green solid stool, pink stoma site, no bleeding. - Exam Additional comments: b/l nephrostomy tubes with clear urine draining. - Extremities Exam Extremities Exam: Full ROM. absent: Pedal Edema - Neurological Exam Neurological Exam: Alert, Awake - Skin Skin Exam: Normal Color, Warm Assessment and Plan - Assessment and Plan (Free Text) Assessment: 67 year old female with a PMH of cervical cancer with a recent flex sig done for rectal bleeding showing large likely extrinsic/subepithelial mass severely compressing rectum; pathology shows necrotic inflammatory material, no cancer. Prior MRI showed 2 fistulas (colovaginal, vesicovaginal), and patient is now presenting with urinary fecal matter. 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 Please re-consult us as necessary. Case reviewed and discussed with Dr. Sumner <Harvey Sumner V - Last Filed: 07/03/18 00:08> Objective - Vital Signs/Intake and Output Vital Signs (last 24 hours): Temp Pulse Resp BP Pulse Ox 97.4 F L 92 H 20 130/86 98 07/02/18 16:12 07/02/18 17:29 07/02/18 16:12 07/02/18 17:29 07/02/18 16:12 Intake and Output: 07/02/18 07/03/18 18:59 06:59 Output Total 450 Balance -450 - Medications Medications: Current Medications Acetaminophen (Tylenol 325mg Tab) 650 mg PO Q4 PRN PRN Reason: Fever >100.4 F Albuterol Sulfate (Albuterol 0.083% Inhal Viviane (2.5 Mg/3 Ml) Ud) 2.5 mg INH Q8H PRN PRN Reason: Shortness of Breath Last Admin: 06/29/18 08:24 Dose: 2.5 mg Alprazolam (Xanax) 0.25 mg PO BID PRN; Protocol PRN Reason: Anxiety Stop: 07/04/18 13:57 Last Admin: 07/02/18 21:57 Dose: 0.25 mg Diphenhydramine HCl (Benadryl) 25 mg IVP HS PRN PRN Reason: Sleep Emollient Ointment (Vaseline Oint) 5 gm TOP Q4 PRN PRN Reason: DRY SKIN Last Admin: 06/30/18 03:03 Dose: 5 gm Enoxaparin Sodium (Lovenox) 40 mg SC DAILY [facility]; Protocol Last Admin: 07/02/18 10:24 Dose: 40 mg Fentanyl (Duragesic) 1 patch TD Q72H [facility] Last Admin: 07/01/18 12:50 Dose: 1 patch Hydromorphone HCl (Dilaudid) 0.5 mg IVP Q2H PRN PRN Reason: Pain, severe (8-10) Last Admin: 07/02/18 21:57 Dose: 0.5 mg Metoprolol Tartrate (Lopressor) 25 mg PO BID [facility] Last Admin: 07/02/18 17:29 Dose: 25 mg Montelukast Sodium (Singulair) 10 mg PO DAILY [facility] Last Admin: 07/02/18 10:22 Dose: 10 mg Morphine Sulfate (Morphine Extended Release Tab) 30 mg PO Q12 [facility] Last Admin: 07/02/18 21:56 Dose: Not Given Tranexemic Acid 650 (Mg Tab (Home Med)) 0 tab PO BID [facility] Last Admin: 07/02/18 17:30 Dose: 2 tab Ondansetron HCl (Zofran Odt) 4 mg PO Q8H PRN PRN Reason: Nausea/Vomiting Ondansetron HCl (Zofran Inj) 4 mg IVP Q6H PRN PRN Reason: Nausea/Vomiting Last Admin: 06/29/18 12:14 Dose: 4 mg Oxycodone HCl (Oxycodone Immediate Release Tab) 30 mg PO Q6H PRN PRN Reason: Pain, severe (8-10) Last Admin: 07/02/18 22:39 Dose: 30 mg Pantoprazole Sodium (Protonix Ec Tab) 20 mg PO DAILY [facility] Last Admin: 07/02/18 10:23 Dose: 20 mg Sertraline HCl (Zoloft) 25 mg PO DAILY [facility] Last Admin: 07/02/18 10:24 Dose: 25 mg Sucralfate (Carafate Oral Susp) 1 gm PO BID [facility] Last Admin: 07/02/18 17:29 Dose: 1 gm - Labs Labs: 07/02/18 06:00 07/02/18 06:00 PT 12.5 SECONDS (9.4-12.5) 06/27/18 12:15 INR 1.11 06/27/18 12:15 APTT 35.4 Seconds (26.9-38.3) 06/27/18 12:15 Attending/Attestation - Attestation I have personally seen and examined this patient.: Yes I have fully participated in the care of the patient.: Yes I have reviewed all pertinent clinical information, including history, physical exam and plan: Yes Notes (Text): This patient was seen and evaluated earlier along with the resident patient. This is an addendum to the GI progress report dictated by the resident Colostomy working well. Advised to follow-up and supportive care Will sign off please reconsult as needed 07/03/18 00:06
[2018-07-02] MEDS ORDERED: Magnesium Sulfate 2 gm/50 ml 2 GM/50 ML BAG IVPB ONE (09:39)
[2018-07-02] MEDS: Morphine 30 mg SR Tab PO SCH ×2 (10:23→21:56)
[2018-07-02] MEDS: Pantoprazole 20 mg EC Tab PO SCH (10:23)
[2018-07-02] MEDS: Enoxaparin 40 mg Syringe SC SCH (10:24)
[2018-07-02] MEDS: TRANEXAMIC ACID 650 MG PO SCH ×2 (10:25→17:30)
[2018-07-02] MEDS: Sucralfate 1 gm/10 ml Oral Susp UD PO SCH ×2 (10:33→17:29)
[2018-07-02] MEDS: oxyCODONE 30 mg Immediate Release Tab PO PRN ×2 (13:37→22:39)
[2018-07-02 17:35] VITALS: PULSE 92
[2018-07-03] MEDS: HYDROmorphone 0.5 mg/0.5 ml ISec IVP PRN ×6 (00:05→13:28)
[2018-07-03 07:30] LABS: BASO # 0.05 K/mm3 (0.0-2.0); BASO % 1.2 % (0.0-3.0); EOS # 0.3 (0.0-0.7); EOS % 6.9 % (1.5-5.0); LYMPH # 0.7 (1.2-3.4); LYMPH % 16.8 % (22.0-35.0); MEAN CELL VOLUME 97.1 fl (80.0-105.0); MEAN CORPUSCULAR HEMOGLOBIN 28.7 pg (25.0-35.0); MEAN CORPUSCULAR HGB CONC 29.6 g/dl (31.0-37.0); MEAN PLATELET VOLUME 10.1 fl (7.0-11.0); MONO # 0.4 (0.1-0.6); MONO % 9.1 % (1.0-6.0); RBC 3.48 10^6/uL (3.5-6.1); RED CELL DISTRIBUTION WIDTH 17.8 % (11.5-14.5); WHITE BLOOD COUNT 4.1 10^3/uL (4.5-11.0)
[2018-07-03 07:45] LABS: ALB/GLOB RATIO 0.8 (1.1-1.8); ALBUMIN 2.9 g/dL (3.0-4.8); ALT/SGPT < 6 U/L (7-56); AST/SGOT 24 U/L (14-36); BLOOD UREA NITROGEN 19 mg/dL (7-21); CALCIUM 8.9 mg/dL (8.4-10.5); GFR NON-AFRICAN AMERICAN 38
[2018-07-03] MEDS: Enoxaparin 40 mg Syringe SC SCH (09:31)
[2018-07-03] MEDS: Pantoprazole 20 mg EC Tab PO SCH (09:31)
[2018-07-03] MEDS: Morphine 30 mg SR Tab PO SCH (09:32)
[2018-07-03] MEDS: Sucralfate 1 gm/10 ml Oral Susp UD PO SCH (09:32)
[2018-07-03] MEDS: TRANEXAMIC ACID 650 MG PO SCH (09:32)
--- NOTE | 2018-07-03 11:34 | CP.PCM.PN ---
Subjective - Date & Time of Evaluation Date of Evaluation: 07/03/18 Time of Evaluation: 11:28 - Subjective Subjective: General Surgery Progress Note for Dr. Greene Patient was seen and evaluated at bedside this AM. No acute events overnight. No new complaints. Pain managed appropriately. Patient is using IS and ambulating without difficulty. Denies f/c, n/d, SOB, CP, or urinary symptoms. Objective - Vital Signs/Intake and Output Vital Signs (last 24 hours): Temp Pulse Resp BP Pulse Ox 97.4 F L 92 H 20 130/86 98 07/02/18 16:12 07/02/18 17:29 07/02/18 16:12 07/02/18 17:29 07/02/18 16:12 - Medications Medications: Current Medications Acetaminophen (Tylenol 325mg Tab) 650 mg PO Q4 PRN PRN Reason: Fever >100.4 F Albuterol Sulfate (Albuterol 0.083% Inhal Viviane (2.5 Mg/3 Ml) Ud) 2.5 mg INH Q8H PRN PRN Reason: Shortness of Breath Last Admin: 06/29/18 08:24 Dose: 2.5 mg Alprazolam (Xanax) 0.25 mg PO BID PRN; Protocol PRN Reason: Anxiety Stop: 07/04/18 13:57 Last Admin: 07/02/18 21:57 Dose: 0.25 mg Diphenhydramine HCl (Benadryl) 25 mg IVP HS PRN PRN Reason: Sleep Emollient Ointment (Vaseline Oint) 5 gm TOP Q4 PRN PRN Reason: DRY SKIN Last Admin: 06/30/18 03:03 Dose: 5 gm Enoxaparin Sodium (Lovenox) 40 mg SC DAILY [facility]; Protocol Last Admin: 07/03/18 09:31 Dose: 40 mg Fentanyl (Duragesic) 1 patch TD Q72H [facility] Last Admin: 07/01/18 12:50 Dose: 1 patch Hydromorphone HCl (Dilaudid) 0.5 mg IVP Q2H PRN PRN Reason: Pain, severe (8-10) Last Admin: 07/03/18 09:30 Dose: 0.5 mg Metoprolol Tartrate (Lopressor) 25 mg PO BID [facility] Last Admin: 07/03/18 09:31 Dose: 25 mg Montelukast Sodium (Singulair) 10 mg PO DAILY [facility] Last Admin: 07/03/18 09:31 Dose: 10 mg Morphine Sulfate (Morphine Extended Release Tab) 30 mg PO Q12 [facility] Last Admin: 07/03/18 09:32 Dose: Not Given Tranexemic Acid 650 (Mg Tab (Home Med)) 0 tab PO BID [facility] Last Admin: 07/03/18 09:32 Dose: 2 tab Ondansetron HCl (Zofran Odt) 4 mg PO Q8H PRN PRN Reason: Nausea/Vomiting Ondansetron HCl (Zofran Inj) 4 mg IVP Q6H PRN PRN Reason: Nausea/Vomiting Last Admin: 06/29/18 12:14 Dose: 4 mg Oxycodone HCl (Oxycodone Immediate Release Tab) 30 mg PO Q6H PRN PRN Reason: Pain, severe (8-10) Last Admin: 07/02/18 22:39 Dose: 30 mg Pantoprazole Sodium (Protonix Ec Tab) 20 mg PO DAILY [facility] Last Admin: 07/03/18 09:31 Dose: 20 mg Sertraline HCl (Zoloft) 25 mg PO DAILY [facility] Last Admin: 07/03/18 09:31 Dose: 25 mg Sucralfate (Carafate Oral Susp) 1 gm PO BID [facility] Last Admin: 07/03/18 09:32 Dose: 1 gm - Labs Labs: 07/03/18 06:30 07/03/18 06:45 PT 12.5 SECONDS (9.4-12.5) 06/27/18 12:15 INR 1.11 06/27/18 12:15 APTT 35.4 Seconds (26.9-38.3) 06/27/18 12:15 - Additional Findings Additional findings: - Constitutional Appears: Well, Non-toxic, No Acute Distress - Head Exam Head Exam: ATRAUMATIC, NORMAL INSPECTION, NORMOCEPHALIC - Eye Exam Eye Exam: EOMI - ENT Exam ENT Exam: Mucous Membranes Moist - Respiratory Exam Respiratory Exam: NORMAL BREATHING PATTERN. absent: Respiratory Distress - Cardiovascular Exam Cardiovascular Exam: absent: Tachycardia - GI/Abdominal Exam GI & Abdominal Exam: Soft, Tenderness, Normal Bowel Sounds. 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 Greene in office Patient cleared for discharge from a surgical standpoint D/w Dr. Ramona Sandhu PGY1
[2018-07-03 14:46] VITALS: BP 144/83; TEMP 97.9; O2SAT 94
--- NOTE | 2018-07-03 15:28 | CP.PCM.DIS ---
Provider - Provider Date of Admission: 06/28/18 11:02 Attending physician: Evaristo Saldivar MD Primary care physician: Gudelia Ford MD Consults: 06/27/18 11:11 Gastroenterology Consult Routine Comment: stercoral ulcer, chronic cancer, Liliana request Consulting Provider: Harvey Sumner V Consulting Physician: Harvey Sumner V Reason for Consult: stercoral ulcer, chronic cancer, Liliana request General Surgery Consult Routine Comment: stercoral ulcer, chronic cancer, Liliana request Consulting Provider: Tony Greene Consulting Physician: Tony Greene Reason for Consult: stercoral ulcer, chronic cancer, Liliana request 06/27/18 23:11 Nursing Referral for Wound Care Routine Comment: Physician Instructions: Reason For Exam: EVALUATION 06/27/18 23:15 Nursing Referral for Palliative Care Routine Comment: Physician Instructions: Reason For Exam: EVALUATION Social Work Referral Routine Comment: DISCHARGE HOME WITH HELP IF PT ALLOWS Physician Instructions: Reason For Exam: EVALUATION 06/28/18 12:53 Palliative Care Consult Routine Comment: Consulting Provider: Flor Galvan Physician Instructions: Reason For Exam: Goals of care 07/03/18 11:33 Wound Care [Nursing Referral for Wound Care] Routine Comment: Physician Instructions: Reason For Exam: Post surgery Time Spent in preparation of Discharge (in minutes): 45 Diagnosis - Discharge Diagnosis (1) Fistula Status: Acute (2) Metastatic cancer Status: Chronic Priority: High (3) Abdominal pain Status: Acute Hospital Course - Lab Results Lab Results: Most Recent Lab Values WBC 4.1 10^3/uL (4.5-11.0) L D 07/03/18 06:30 RBC 3.48 10^6/uL (3.5-6.1) L 07/03/18 06:30 Hgb 10.0 g/dL (12.0-16.0) L 07/03/18 06:30 Hct 33.8 % (36.0-48.0) L 07/03/18 06:30 MCV 97.1 fl (80.0-105.0) 07/03/18 06:30 MCH 28.7 pg (25.0-35.0) 07/03/18 06:30 MCHC 29.6 g/dl (31.0-37.0) L 07/03/18 06:30 RDW 17.8 % (11.5-14.5) H 07/03/18 06:30 Plt Count 270 10^3/uL (120.0-450.0) 07/03/18 06:30 MPV 10.1 fl (7.0-11.0) 07/03/18 06:30 Neut % (Auto) 66.0 % (50.0-68.0) 07/03/18 06:30 Lymph % (Auto) 16.8 % (22.0-35.0) L 07/03/18 06:30 [place] % (Auto) 9.1 % (1.0-6.0) H 07/03/18 06:30 Eos % (Auto) 6.9 % (1.5-5.0) H 07/03/18 06:30 Baso % (Auto) 1.2 % (0.0-3.0) 07/03/18 06:30 Lymph # (Auto) 0.7 (1.2-3.4) L 07/03/18 06:30 [place] # (Auto) 0.4 (0.1-0.6) 07/03/18 06:30 Eos # (Auto) 0.3 (0.0-0.7) 07/03/18 06:30 Baso # (Auto) 0.05 K/mm3 (0.0-2.0) 07/03/18 06:30 Absolute Neuts (auto) 2.67 (1.4-6.5) 07/03/18 06:30 Neutrophils % (Manual) 91 % (50.0-70.0) H 06/29/18 05:00 Band Neutrophils % 2 % (0-2) 06/29/18 05:00 Lymphocytes % (Manual) 4 % (22.0-35.0) L 06/29/18 05:00 Monocytes % (Manual) 3 % (1.0-6.0) 06/29/18 05:00 Toxic Granulation 1+ 06/29/18 05:00 Platelet Evaluation Normal (NORMAL) 06/29/18 05:00 Hypochromasia 1+ 06/29/18 05:00 Anisocytosis (manual) 1+ 06/29/18 05:00 PT 12.5 SECONDS (9.4-12.5) 06/27/18 12:15 INR 1.11 06/27/18 12:15 APTT 35.4 Seconds (26.9-38.3) 06/27/18 12:15 Sodium 142 mmol/L (132-148) 07/03/18 06:45 Potassium 4.5 mmol/L (3.6-5.0) 07/03/18 06:45 Chloride 102 mmol/L (98-107) 07/03/18 06:45 Carbon Dioxide 33 mmol/L (21-33) 07/03/18 06:45 Anion Gap 11 (10-20) 07/03/18 06:45 BUN 19 mg/dL (7-21) 07/03/18 06:45 Creatinine 1.4 mg/dl (0.7-1.2) H 07/03/18 06:45 Est GFR ( Amer) 45 07/03/18 06:45 Est GFR (Non-Af Amer) 38 07/03/18 06:45 Random Glucose 75 mg/dL (70-110) 07/03/18 06:45 Calcium 8.9 mg/dL (8.4-10.5) 07/03/18 06:45 Phosphorus 2.7 mg/dL (2.5-4.5) 07/02/18 06:00 Magnesium 1.5 mg/dL (1.7-2.2) L 07/02/18 06:00 Total Bilirubin 0.2 mg/dL (0.2-1.3) 07/03/18 06:45 AST 24 U/L (14-36) 07/03/18 06:45 ALT < 6 U/L (7-56) L 07/03/18 06:45 Alkaline Phosphatase 108 U/L (38-126) 07/03/18 06:45 Total Protein 6.8 g/dL (5.8-8.3) 07/03/18 06:45 Albumin 2.9 g/dL (3.0-4.8) L 07/03/18 06:45 Globulin 3.8 gm/dL 07/03/18 06:45 Albumin/Globulin Ratio 0.8 (1.1-1.8) L 07/03/18 06:45 Blood Type O POSITIVE 06/27/18 12:15 Antibody Screen Negative 06/27/18 12:15 BBK History Checked Patient has bt 06/27/18 12:15 - Hospital Course Hospital Course: Hospital Course 67 yo F with PMH of stage 4 cervical cancer s/p chemoradiation, CAD s/p stenting(x4), CKD, h/o nephrostomy tubes, radiation cystitis, psoriasis, depression, and stercoral rectal ulcer who [place] [facility] pain secondary to likely fistula and for colectomy with general surgery. 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 Gastroenterology service evaluated the patient as part of follow up from previous admission with recommendations for no endoscopy in the setting of planned management per general surgery team. Patient underwent LLQ end colostomy placement with mucus fistula. Patient was monitored and evaluated post op with proper education for handling and caring for ostomy and colostomy bag. Patient pain management was controlled and altered to reflect new surgical intervention and ongoing chronic pain secondary to her malignancy. Patient requested to be discharged home with planned follow up with Dr. Greene outpatient. Patient was discharged 07/03/18. Discharge Summary Extensive conversation with patient regarding discharge instructions for follow up with Dr. Ford and General Surgery team with Dr. Greene Patient pain management regiment altered with addition of fentanyl patch 50mcg Q72H with continuation of dilaudid 4mg PO Q4H PRN severe pain. Patient instructed to apply Fentanyl patch. Medication reconciliation was preformed at bedside and patient was instructed to resume previous home meds upon admission with additions and changes previously mentioned. Kianet was instructed on colostomy and ostomy care. Patient was instructed to continue regular diet with proper monitoring of her bowel movements and flatus. All questions were answered to patient verbal satisfaction. This is a brief summary of the patients hospital course and discharge please see chart for full detail. Discharge Exam - Head Exam Head Exam: ATRAUMATIC, NORMOCEPHALIC - Eye Exam Eye Exam: EOMI, PERRL - ENT Exam Additional comments: poor dentition - Neck Exam Neck exam: Full Rom - Respiratory Exam Respiratory Exam: Clear to PA & Lateral, NORMAL BREATHING PATTERN - Cardiovascular Exam Cardiovascular Exam: REGULAR RHYTHM, +S1, +S2 - GI/Abdominal Exam GI & Abdominal Exam: Normal Bowel Sounds, Soft. absent: Firm, Guarding Additional comments: ostomy pink with clamp in blace, No extensive erythema surrounding ostomy. ostomy bag with wafer in place no leakage appreciated - Extremities Exam Extremities exam: full ROM, normal capillary refill - Neurological Exam Neurological exam: Alert, CN II-XII Intact, Normal Gait, Oriented x3 - Psychiatric Exam Psychiatric exam: Normal Affect, Normal Mood - Skin Skin Exam: Dry, Warm Discharge Plan - Discharge Medications Prescriptions: Fentanyl 50 mcg TD Q72H #10 patch.[id number] - Follow Up Plan Condition: STABLE Disposition: HOME/ ROUTINE Instructions: Soft Diet, How to Care for Your Ostomy, Adult, Colostomy Care Additional Instructions: Continue regular diet as tolerated Take over the counter robitussin for cough symptoms Take medications as prescribed to you including the following - Dilaudid 4mg PO Q3H PRN severe pain - Fentanyl patch 50 mcg TD patch Q3days, apply to anterior chest for best absorption Continue metal clamp on mucous fistula until follow up with Dr. Greene in office with in the next 3-5 days Follow up with Dr. Ford in his office within 1-2 weeks upon discharge If you develop sudden intractable abdominal pain, unable to pass gas or stool, significant bleeding at stoma sight, persistent fever, chest pain, shortness of breath please go to nearest emergency department Referrals: Gudelia Ford MD [Primary Care Provider] -
--- NOTE | 2018-07-04 09:57 | CP.PCM.PN ---
Subjective - Date & Time of Evaluation Date of Evaluation: 07/03/18 Time of Evaluation: 16:00 - Subjective Subjective: Alert, offers no complaints Objective - Vital Signs/Intake and Output Vital Signs (last 24 hours): Temp Pulse Resp BP Pulse Ox 97.9 F 92 H 20 144/83 94 L 07/03/18 07:00 07/03/18 07:00 07/03/18 07:00 07/03/18 07:00 07/03/18 07:00 - Labs Labs: 07/03/18 06:30 07/03/18 06:45 PT 12.5 SECONDS (9.4-12.5) 06/27/18 12:15 INR 1.11 06/27/18 12:15 APTT 35.4 Seconds (26.9-38.3) 06/27/18 12:15 - Constitutional Appears: Chronically Ill - Eye Exam Eye Exam: Normal appearance, PERRL - ENT Exam ENT Exam: Normal Exam - Respiratory Exam Respiratory Exam: Clear to Ausculation Bilateral, NORMAL BREATHING PATTERN - Cardiovascular Exam Cardiovascular Exam: REGULAR RHYTHM, +S1 - GI/Abdominal Exam GI & Abdominal Exam: Soft, Normal Bowel Sounds Additional comments: colostomy patent - Neurological Exam Neurological Exam: Alert, Oriented x3 - Psychiatric Exam Psychiatric exam: Flat Affect - Skin Skin Exam: Dry, Pallor Assessment and Plan - Assessment and Plan (Free Text) Assessment: 67 year old female with history of stage IV cervical CA, SVC syndrome,anemia, GIB, stercoral ulceration of the rectum, CAD, CKD, recurrent UTI's s/p b/l nephrostomy, chronic constipation, Watkins's esophagus, psoriasis, and depression who is admitted for operative management of multiple colo-vaginal fistula. The patient is alert. She is scheduled for discharge today. She intends to goo home, her sisters will assist with ADL's as needed. I offered to initiate a POLST form with DNI status .The patient states that she does not want to do the form. I explained that her previous Advanced Directive indicated that she wanted to be intubated,I encouraged her to update her wishes by completing POLST. She refused Time spent with patient in advance care planning, 15 minutes Plan: Advance care planning Discharge to home F/U with oncology as an out patient
== END 2018-07-03 16:46 | disposition home health service (06) | DRG 982 ==
LOC: ED 09:02 → ERH 13:08 → 3RNO 17:21 → OBSVTOIN 06-28 11:02
PROVIDERS: ADMIT Family Medicine; ATTEND Family Medicine
PROC: 0D1N0Z4 Bypass Sigmoid Colon to Cutaneous, Open Approach (ICD-10-PCS; principal; 2018-06-28 15:15)
DX: N82.0 Vesicovaginal fistula (principal); N32.1 Vesicointestinal fistula; K62.6 Ulcer of anus and rectum; C78.1 Secondary malignant neoplasm of mediastinum; K50.911 Crohn's disease, unspecified, with rectal bleeding; N82.3 Fistula of vagina to large intestine; N30.40 Irradiation cystitis without hematuria; Y84.2 Radiological procedure and radiotherapy as the cause of abnormal reaction of the patient, or of later complication, without mention of misadventure at the time of the procedure; N82.8 Other female genital tract fistulae; G89.3 Neoplasm related pain (acute) (chronic); D50.0 Iron deficiency anemia secondary to blood loss (chronic); N94.89 Other specified conditions associated with female genital organs and menstrual cycle; I25.10 Atherosclerotic heart disease of native coronary artery without angina pectoris; N18.1 Chronic kidney disease, stage 1; K22.70 Barrett's esophagus without dysplasia; E87.6 Hypokalemia; K21.9 Gastro-esophageal reflux disease without esophagitis; F32.9 Major depressive disorder, single episode, unspecified; F41.9 Anxiety disorder, unspecified; L40.9 Psoriasis, unspecified; K59.09 Other constipation; D63.8 Anemia in other chronic diseases classified elsewhere; Z85.41 Personal history of malignant neoplasm of cervix uteri; Z92.3 Personal history of irradiation; Z92.21 Personal history of antineoplastic chemotherapy; Z93.6 Other artificial openings of urinary tract status; Z87.891 Personal history of nicotine dependence; Z87.440 Personal history of urinary (tract) infections; Z86.73 Personal history of transient ischemic attack (TIA), and cerebral infarction without residual deficits; Z95.5 Presence of coronary angioplasty implant and graft

== ENCOUNTER 2018-08-29 13:39 | Emergency (ER) | payer MEDICARE, OTHER ==
--- NOTE | 2018-08-29 14:00 | ED PDOC ---
Arrival/HPI - General Historian: Patient - History of Present Illness Narrative History of Present Illness (Text): 08/29/18 14:22 Patient is a 68 yo female with stage 4 cervical cancer complicated by fistulas s/p colostomy, b/l nephrostomy tubes, and chemoradiation who presents today with nausea and vomiting. Patient saw her surgeon for an outpatient appointment today during which she states he removed a suture from her recent colostomy surgery. She states that this caused her significant abdominal pain at the site of staple removal. Additionally, she developed nausea, lightheadedness, and vomiting. She reports she vomited yellow liquid multiple times in the physician's office. She said she at breakfast this morning without difficulty. She says she has not had nausea and vomiting like this since she was receiving chemotherapy. She reports taking PO Dilaudid this morning prior to her appointment. Time/Duration: 1-3 hours Symptom Onset: Sudden Symptom Course: Improving Activities at Onset: Rest <Miranda Minaya - Last Filed: 08/29/18 17:47> <Tenzin Ramachandran - Last Filed: 08/29/18 18:55> - General Chief Complaint: GI Problem Time Seen by Provider: 08/29/18 14:00 Past Medical History - Provider Review Nursing Documentation Reviewed: Yes - Infectious Disease Hx of Infectious Diseases: None - Tetanus Immunization Tetanus Immunization: Unknown - Cardiac Hx Pacemaker: No - Pulmonary Hx Bronchitis: Yes - Neurological Hx Paralysis: No - HEENT Hx HEENT Disorder: Yes (glasses) - Renal Hx Renal Failure: Yes - Endocrine/Metabolic Hx Endocrine Disorders: No - Hematological/Oncological Hx Blood Transfusions: Yes (01/2018) Hx Blood Transfusion Reaction: No - Integumentary Hx Psoriasis: Yes - Musculoskeletal/Rheumatological Hx Musculoskeletal Disorders: Yes (r ankle/ R WRIST FX R/T FALL 06/2015) - Gastrointestinal Hx Gastrointestinal Disorders: Yes (GI bleed) Hx Diverticulitis: Yes Hx Gastroesophageal Reflux: Yes - Genitourinary/Gynecological Hx Genitourinary Disorders: Yes Hx Hematuria: Yes Hx Urinary Tract Infection: Yes Other/Comment: nephrostomy surgery - Psychiatric Hx Emotional Abuse: No Hx Physical Abuse: No Hx Substance Use: No - Surgical History Hx Cardiac Catheterization: Yes Hx Coronary Stent: Yes Hx Hysterectomy: Yes Other/Comment: nephrostomy tubes,CARDIAC STENTS ,HYSTERECTOMY,RIGHT ANKLE FX, - Anesthesia Hx Anesthesia Reactions: Yes (NAUSEA) Hx Malignant Hyperthermia: No - Suicidal Assessment Feels Threatened In Home Enviroment: No <Miranda Minaya - Last Filed: 08/29/18 17:47> Family/Social History - Physician Review Nursing Documentation Reviewed: Yes Family/Social History: Unknown Family HX Smoking Status: Former Smoker Hx Alcohol Use: No Hx Substance Use: No Hx Substance Use Treatment: No <Miranda Minaya - Last Filed: 08/29/18 17:47> Allergies/Home Meds <Miranda Minaya - Last Filed: 08/29/18 17:47> <DuarteTenzin Curtis - Last Filed: 08/29/18 18:55> Allergies/Adverse Reactions: Allergies No Known Allergies Allergy (Verified 06/27/18 18:37) Home Medications: Home Meds Medication Instructions Recorded Confirmed Benzocaine/Menthol [Cepacol Sore 1 devante PO Q2H PRN 06/11/18 06/27/18 Throat] Tranexamic Acid [Lysteda] 2 tab PO BID 06/12/18 06/27/18 Esomeprazole Magnesium [Nexium] 1 cap PO DAILY 06/17/18 06/27/18 Terconazole 80 mg VG DAILY 06/17/18 06/27/18 Acetaminophen/Oxycodone Hydr 2 tab PO Q6 06/27/18 06/27/18 [Percocet 2.5/325 mg Tab] Review of Systems - Review of Systems Constitutional: absent: Fevers, Night Sweats Eyes: absent: Vision Changes ENT: absent: Hearing Changes, Tinnitus Cardiovascular: absent: Chest Pain, Palpitations Gastrointestinal: Abdominal Pain, Nausea, Vomiting, Other (good ostomy output). absent: Constipation, Diarrhea Genitourinary Female: Other (b/l nephrostomy tubes with clear yellow urine output) Musculoskeletal: absent: Back Pain Skin: absent: Rash, Pruritis, Skin Lesions Neurological: Dizziness. absent: Headache, Focal Weakness Endocrine: absent: Diaphoresis Hemo/Lymphatic: absent: Adenopathy <Miranda Minaya - Last Filed: 08/29/18 17:47> Physical Exam Vital Signs Reviewed: Yes Temperature: Afebrile Blood Pressure: Hypertensive Pulse: Regular Respiratory Rate: Normal Appearance: Positive for: Non-Toxic, Ill-Appearing Pain Distress: Mild Mental Status: Positive for: Alert and Oriented X 3 - Systems Exam Head: Present: Atraumatic, Normocephalic Pupils: Present: PERRL Extroacular Muscles: Present: EOMI Conjunctiva: Present: Normal Mouth: Present: Moist Mucous Membranes, Other (angular cheilitis) Pharnyx: Present: Normal Neck: Present: Normal Range of Motion. No: Lymphadenopathy Respiratory/Chest: Present: Clear to Auscultation, Good Air Exchange Cardiovascular: Present: Regular Rate and Rhythm, Normal S1, S2 Abdomen: Present: Tenderness, Ostomy Tubes (L-sided colostomy, pink stomy, stool output), Other (lower midline wounds with packing, no signs of bleeding or infection) Back: Present: Other (b/l neprhostomy tubes with clear yellow urine output). No: CVA Tenderness Lower Extremity: Present: Edema (1+ pedal b/l), Neurovascularly Intact Neurological: Present: GCS=15, CN II-XII Intact, Speech Normal Skin: Present: Warm, Dry, Normal Color Lymphatic: No: Cervical Adenopathy Psychiatric: Present: Alert, Oriented x 3, Normal Insight, Normal Concentration, Other (tearful) <Miranda Minaya - Last Filed: 08/29/18 17:47> Vital Signs Temp Pulse Resp BP Pulse Ox 08/29/18 14:23 98 F 95 H 17 149/93 H 100 - Systems Exam Abdomen: Present: Tenderness (only at the site of where the stable was removed; no redness or pus. Packing in place without any bleeding. No abdominal tenderness in general.), Normal Bowel Sounds. No: Distention, Peritoneal Signs, Rebound, Guarding, McBurney's Point Tender <Tenzin Ramachandran - Last Filed: 08/29/18 18:55> Medical Decision Making ED Course and Treatment: 08/29/18 14:33 CBC, CMP, Mg, Ph Zofran 08/29/18 15:25 Patient still complaining of pain. Will admin Percocet 5/325 mg PO 2 tabs. 08/29/18 15:39 Patient seen by surgical elastic knitter hand frame. Spoke with Dr. Greene on the phone. No surgical concerns or intervention at this time. 08/29/18 15:44 Patient is refusing Percocet. She states it does not work for her pain. Will give Dilaudid 4 mg PO as this is waht patient takes at home. Placed call to Dr. Ford. 08/29/18 15:56 Elevated creatinine (1.9). Will give NS 0.5 L bolus. 08/29/18 16:38 Re-evaluated patient. She states she is feeling better and would like to go home. She will follow-up with Dr. Ford. Re-evaluation Time: 16:38 Reassessment Condition: Improved - Lab Interpretations Lab Results: 08/29/18 15:20 08/29/18 15:20 Lab Results 08/29/18 15:20: Sodium 137, Potassium 4.2, Chloride 102, Carbon Dioxide 28, Anion Gap 12, BUN 22 H, Creatinine 1.9 H, Est GFR ( Amer) 32, Est GFR (Non-Af Amer) 26, Random Glucose 116 H, Calcium 8.9, Phosphorus 4.3, Magnesium 2.0, Total Bilirubin 0.2, AST 23, ALT 15, Alkaline Phosphatase 99, Total Protein 6.8, Albumin 3.2, Globulin 3.6, Albumin/Globulin Ratio 0.9 L 08/29/18 15:20: WBC 7.6 D, RBC 2.90 L, Hgb 8.3 L, Hct 27.3 L, MCV 94.1 D, MCH 28.6, MCHC 30.4 L, RDW 14.9 H, Plt Count 331, MPV 8.5, Neut % (Auto) 87.5 H, Lymph % (Auto) 6.2 L, Swisher % (Auto) 5.3, Eos % (Auto) 0.7 L, Baso % (Auto) 0.3, Lymph # (Auto) 0.5 L, Swisher # (Auto) 0.4, Eos # (Auto) 0.1, Baso # (Auto) 0.02, Absolute Neuts (auto) 6.61 H I have reviewed the lab results: Yes Interpretation: Abnormal lab values - Medication Orders Current Medication Orders: 08/29/18 16:39 Discontinued Medications Hydromorphone HCl (Dilaudid) 4 mg PO ONCE STA Stop: 08/29/18 15:44 Last Admin: 08/29/18 15:48 Dose: 4 mg MAR Pain Assessment Document 08/29/18 15:48 CD (Rec: 08/29/18 15:48 CD [place] [id number]) Pain Reassessment Is this a pain reassessment? No Sleep Is patient sleeping during reassessment? No Presence of Pain Presence of Pain Yes Pain Scale Used Protocol: PSCALES Pain Scale Used Numeric Location Upper or Lower Upper Pain Location Body Site Abdomen Description Description Intermittent Intensity of Pain at present 7 Pain Behavior Moaning Crying Withdrawal from Touch Aggravating Factors Changing Position Alleviating Factors/Management Inactivity Techniques Alleviating Factors Inactivity Sodium Chloride (Sodium Chloride 0.9%) 500 mls @ 999 mls/hr IV .Q31M STA Stop: 08/29/18 16:25 Last Admin: 08/29/18 16:05 Dose: 999 mls/hr eMAR Start Stop Document 08/29/18 16:05 CD (Rec: 08/29/18 16:05 CD [place] [id number]) Intravenous Solution Start Date 08/29/18 Start Time 16:05 End Date 08/29/18 End time 16:36 Total Infusion Time 31 Ondansetron HCl (Zofran Inj) 4 mg IVP STAT STA Stop: 08/29/18 14:29 Last Admin: 08/29/18 14:39 Dose: 4 mg IVP Administration Document 08/29/18 14:39 CD (Rec: 08/29/18 14:39 CD [place] [id number]) Charges for Administration # of IVP Administrations 1 Oxycodone/Acetaminophen (Percocet 5/325 Mg Tab) 2 tab PO STAT STA Stop: 08/29/18 15:14 Last Admin: 08/29/18 15:34 Dose: Not Given Non-Admin Reason: Patient Refused <Miranda Minaya - Last Filed: 08/29/18 17:47> ED Course and Treatment: 08/29/18 14:42 Patient Seen with Resident: In agreement with resident note which contains more details about the patient. Patient seen and evaluated with resident. Came up with plan and treatment together. 08/29/18 16:38 Patient ran out of her Dilaudid PO at home and does not want to take percocet because "it does not work". In the setting treatment of pain in a cancer patient I treated her with one of her usual dose. She agreed to get her continued pain mediation treatment with Dr. Ford. - Medication Orders Current Medication Orders: Discontinued Medications Ondansetron HCl (Zofran Inj) 4 mg IVP STAT STA Stop: 08/29/18 14:29 Last Admin: 08/29/18 14:39 Dose: 4 mg IVP Administration Document 08/29/18 14:39 CD (Rec: 08/29/18 14:39 CD [id number]) Charges for Administration # of IVP Administrations 1 <Tenzin Ramachandran - Last Filed: 08/29/18 18:55> - PA / FUN HOUSE OPERATOR / Resident Statement / has reviewed & agrees with the documentation as recorded. / has examined the patient and agrees with the treatment plan. <Tenzin Ramachandran - Last Filed: 08/29/18 18:55> Disposition/Present on Arrival - Present on Arrival Any Indicators Present on Arrival: No History of DVT/PE: No History of Uncontrolled Diabetes: No Urinary Catheter: No History Surgical Site Infection Following: None - Disposition Have Diagnosis and Disposition been Completed?: Yes Disposition Time: 16:38 Patient Plan: Discharge <Miranda Minaya - Last Filed: 08/29/18 17:47> <Tenzin Ramachandran - Last Filed: 08/29/18 18:55> - Disposition Diagnosis: Abdominal pain, Nausea and vomiting, Cervical cancer, ANGELLA (acute kidney injury) Disposition: HOME/ ROUTINE Condition: STABLE Additional Instructions: GLADYS SMITH, thank you for letting us take care of you today. Your provider was Tenzin Ramachandran DO and you were treated for nausea, abdominal pain, and acute kidney injury. The emergency medical care you received today was directed at your acute symptoms. If you were prescribed any medication, please fill it and take as directed. It may take several days for your symptoms to resolve. Return to the Emergency Department if your symptoms worsen, do not improve, or if you have any other problems. Please contact your doctor or call one of the physicians/clinics you have been referred to that are listed on the Patient Visit Information form that is included in your discharge packet. Bring any paperwork you were given at discharge with you along with any medications you are taking to your follow up visit. Our treatment cannot replace ongoing medical care by a primary care provi dorian outside of the emergency department. Thank you for allowing the [facility] team to be part of your care today. Referrals: Gudelia Ford MD [Primary Care Provider] - Follow up with primary Tony Greene MD [Staff Provider] - Follow up with primary Forms: [facility] ([place])
[2018-08-29 14:24] VITALS: BMI 20.5
[2018-08-29 14:25] VITALS: TEMP 98; O2SAT 100
[2018-08-29] MEDS ORDERED: Oxycodone/Acetaminophen 5/325 mg Tab PO STA (15:13)
--- NOTE | 2018-08-29 15:23 | CP.PCM.CON ---
History of Present Illness - History of Present Illness History of Present Illness: General Surgery Consult Note for Dr. Greene CC: Abdominal pain HPI: Patient is a 68 F with PMHx of cervical cancer, fistulas s/p colostomy presenting to the ED with complaint of abdominal pain. Patient was following up with surgeon and during office visit developed abdominal pain, nausea, vomiting and dizziness. At that time vitals were taken where BP was measured to be 170s systolic. Currently in the ED, patient states that symptoms have improved, she experiencing less pain, is minimally nauseous and no longer vomiting. Vitals are now normal and she wants to go home. SocHx: Denies alcohol, tobacco, illicit drug use. MedHx: Stage 4 Cervical Cancer, fistulas s/p colostomy, b/l nephrostomy tubes, CKD, Crohn's, ASCVD, Watkins's All: NKDA SurgHx: End sigmoid colostomy, Hysterectomy, Ankle repair FamHx: Denies Medications: As per MAR Past Patient History - Infectious Disease Hx of Infectious Diseases: None - Tetanus Immunizations Tetanus Immunization: Unknown - Past Medical History & Family History Past Medical History?: Yes - Past Social History Smoking Status: Former Smoker - CARDIAC Hx Pacemaker: No - PULMONARY Hx Bronchitis: Yes - NEUROLOGICAL Hx Paralysis: No - HEENT Hx HEENT Problems: Yes (glasses) - RENAL Hx Renal Failure: Yes - ENDOCRINE/METABOLIC Hx Endocrine Disorders: No - HEMATOLOGICAL/ONCOLOGICAL Hx Blood Transfusions: Yes (01/2018) Hx Blood Transfusion Reaction: No - INTEGUMENTARY Hx Psoriasis: Yes - MUSCULOSKELETAL/RHEUMATOLOGICAL Hx Musculoskeletal Disorders: Yes (r ankle/ R WRIST FX R/T FALL 06/2015) - GASTROINTESTINAL Hx Gastrointestinal Disorders: Yes (GI bleed) Hx Diverticulitis: Yes Hx Gastroesophageal Reflux: Yes - GENITOURINARY/GYNECOLOGICAL Hx Genitourinary Disorders: Yes Hx Hematuria: Yes Hx Urinary Tract Infection: Yes Other/Comment: nephrostomy surgery - PSYCHIATRIC Hx Emotional Abuse: No Hx Physical Abuse: No Hx Substance Use: No - SURGICAL HISTORY Hx Cardiac Catheterization: Yes Hx Coronary Stent: Yes Hx Hysterectomy: Yes Other/Comment: nephrostomy tubes,CARDIAC STENTS ,HYSTERECTOMY,RIGHT ANKLE FX, - ANESTHESIA Hx Anesthesia Reactions: Yes (NAUSEA) Hx Malignant Hyperthermia: No Meds Allergies/Adverse Reactions: Allergies Allergy/AdvReac Type Severity Reaction Status Date / Time No Known Allergies Allergy Verified 06/27/18 18:37 Physical Exam - Constitutional Appears: Non-toxic, No Acute Distress - Eye Exam Eye Exam: EOMI, PERRL - ENT Exam ENT Exam: Mucous Membranes Moist - Respiratory Exam Respiratory Exam: Clear to Auscultation Bilateral, NORMAL BREATHING PATTERN - Cardiovascular Exam Cardiovascular Exam: REGULAR RHYTHM, +S1, +S2 - GI/Abdominal Exam GI & Abdominal Exam: Soft. absent: Distended, Firm, Guarding, Rebound, Rigid, Tenderness Additional comments: stoma pink and patent with stool output midline incision with two small wounds, currently non draining, non erythematous, packed with 1/2inch iodoform - Extremities Exam Extremities exam: Negative for: pedal edema, tenderness - Neurological Exam Neurological exam: Alert, Oriented x3 - Psychiatric Exam Psychiatric exam: Normal Affect, Normal Mood - Skin Skin Exam: Dry, Intact, Normal Color, Warm Results - Vital Signs Recent Vital Signs: Last Vital Signs Temp 98 F 08/29/18 14:23 Pulse 95 H 08/29/18 14:23 Resp 17 08/29/18 14:23 BP 149/93 H 08/29/18 14:23 Pulse Ox 100 08/29/18 14:23 Assessment & Plan - Assessment and Plan (Free Text) Assessment: 68F with PMHx of stage 4 cervical cancer s/p colostomy 06/2018 presents with abdominal pain and elevated blood pressure. (resolved) Plan: -Regular diet -Monitor vitals -Wound care with 1/2 inch iodoform packing and dry gauze. -Monitor stoma output -No surgical intervention at this time -Further reccs discuss w/ Dr. Ramona Hughes PGY3
[2018-08-29 15:27] LABS: BASO # 0.02 K/mm3 (0.0-2.0); BASO % 0.3 % (0.0-3.0); EOS # 0.1 (0.0-0.7); EOS % 0.7 % (1.5-5.0); HEMOGLOBIN 8.3 g/dL (12.0-16.0); LYMPH # 0.5 (1.2-3.4); LYMPH % 6.2 % (22.0-35.0); MEAN CELL VOLUME 94.1 fl (80.0-105.0); MEAN CORPUSCULAR HEMOGLOBIN 28.6 pg (25.0-35.0); MEAN CORPUSCULAR HGB CONC 30.4 g/dl (31.0-37.0); MEAN PLATELET VOLUME 8.5 fl (7.0-11.0); MONO # 0.4 (0.1-0.6); MONO % 5.3 % (1.0-6.0); RBC 2.9 10^6/uL (3.5-6.1); RED CELL DISTRIBUTION WIDTH 14.9 % (11.5-14.5); WHITE BLOOD COUNT 7.6 10^3/uL (4.5-11.0)
[2018-08-29 15:41] LABS: ALB/GLOB RATIO 0.9 (1.1-1.8); ALBUMIN 3.2 g/dL (3.0-4.8); CALCIUM 8.9 mg/dL (8.4-10.5)
[2018-08-29] MEDS ORDERED: Sodium Chloride 0.9% 500 ML IV STA (15:55)
[2018-08-29 16:24] VITALS: BP 149/90; PULSE 92; RESP 15
== END 2018-08-29 18:25 | disposition home or self-care (01) ==
LOC: ED 13:39
DX: R11.2 Nausea with vomiting, unspecified (principal); R10.9 Unspecified abdominal pain; C53.9 Malignant neoplasm of cervix uteri, unspecified; N17.9 Acute kidney failure, unspecified; Z87.891 Personal history of nicotine dependence
CPT/HCPCS: 80053; 83735; 84100; 85025; 96361; 96374; 99284; J2405; J7040